=== PATIENT | male | born 1955 | race Caucasian/White ===

== ENCOUNTER → 2020-07-04 09:54 | Outpatient (BNVA) | payer OTHER, SELFPAY | PROVIDERS: PCP Internal Medicine; Visit Provider Urology | DX: Z13.89 Encounter for screening for other disorder (principal) | CPT/HCPCS: Q3014 ==

== ENCOUNTER 2021-01-16 15:50 | Outpatient (REF) | payer OTHER, SELFPAY ==
--- NOTE | ~2021-01-16 | US_ITS ---
EXAMINATION: US RETROPERITONEAL LIMITED (RENAL ONLY) CLINICAL INFORMATION: Calculus of kidney. COMPARISON: Renals only ultrasounds dated 11/30/2019 and 12/20/2017. CT abdomen and pelvis without contrast dated 09/19/2011. TECHNIQUE: Real-time imaging of the kidneys. FINDINGS: RIGHT KIDNEY: 11.7 x 5.7 x 4.7 cm (SAG x AP x TRV). The kidney is normal in size, contour, and echogenicity. Renal cortical thickness is normal. No renal calculi or hydronephrosis. There are anechoic cysts in midpole measuring 1.3 x 1.1 x 1.6 cm and lower pole cyst measuring 0.7 x 0.7 x 0.8 cm. LEFT KIDNEY: 11.0 x 6.2 x 5.8 cm (SAG x AP x TRV). The kidney is normal in size, contour, and echogenicity. Renal cortical thickness is normal. No renal calculi or hydronephrosis. There is anechoic cyst in the midpole measuring 1.9 x 1.6 x 1.5 cm and midpole cyst measuring 0.8 x 0.8 x 0.6 cm. US/US renal BI IMPRESSION: Bilateral renal cysts. No echogenic stones or hydronephrosis. No major change from 11/30/2019 exam.
[2021-01-16 17:01] LABS: PSA,Total (Free>4and<10) 0.16 ng/mL (0.00-4.00)
[2021-01-21 17:02] LABS: Testosterone, Total 480 ng/dL (250-1100)
== END 2021-01-16 15:51 | disposition home or self-care (01) ==
LOC: HO.US 15:50
PROVIDERS: Absent Provider Urology; PCP Internal Medicine; Visit Provider Urology
DX: Z12.5 Encounter for screening for malignant neoplasm of prostate (principal); N20.0 Calculus of kidney; N40.1 Benign prostatic hyperplasia with lower urinary tract symptoms; N13.8 Other obstructive and reflux uropathy; E29.1 Testicular hypofunction
CPT/HCPCS: 36415; 76775; 84153; 84403

== ENCOUNTER → 2021-02-06 15:39 | Outpatient (BNVA) | payer OTHER, SELFPAY | PROVIDERS: PCP Internal Medicine; Visit Provider Urology | CPT/HCPCS: 99212 ==

== ENCOUNTER 2021-07-31 09:12 | Outpatient (REF) | payer OTHER, SELFPAY ==
[2021-07-31 10:03] LABS: Hemoglobin 15.3 g/dl (14.0-18.0); Mean Corpuscular Hemoglobin 30.4 pg (27.0-33.0); Mean Corpuscular Volume 89.3 fL (80.0-98.0); Mean Platelet Volume 9.3 fL (9.4-12.4); Platelet Count 218 X10*3/uL (160-400); Red Blood Count 5.04 X10*6/uL (4.60-5.80); Red Cell Distribution Width 12.6 % (11.0-16.0); White Blood Count 7.5 X10*3/uL (4.8-10.8)
[2021-07-31 10:54] LABS: Prostate Specific Antigen 0.12 ng/mL (<0.05-4.0)
[2021-08-06 00:16] LABS: Testosterone, Total 459 ng/dL (250-1100)
== END 2021-07-31 09:13 | disposition home or self-care (01) ==
LOC: HO.LAB 09:12
PROVIDERS: PCP Internal Medicine; Visit Provider Urology
DX: Z12.5 Encounter for screening for malignant neoplasm of prostate (principal); N40.0 Benign prostatic hyperplasia without lower urinary tract symptoms; E29.1 Testicular hypofunction
CPT/HCPCS: 36415; 84153; 84403; 85027

== ENCOUNTER → 2021-08-15 15:45 | Outpatient (BNVA) | payer OTHER, SELFPAY | PROVIDERS: PCP Internal Medicine; Visit Provider Urology | DX: E29.1 Testicular hypofunction (principal); N40.1 Benign prostatic hyperplasia with lower urinary tract symptoms; R35.0 Frequency of micturition; R39.15 Urgency of urination; N52.9 Male erectile dysfunction, unspecified; Z79.899 Other long term (current) drug therapy | CPT/HCPCS: Q3014 ==

== ENCOUNTER 2022-07-13 09:35 | Outpatient (REF) | payer OTHER, SELFPAY ==
--- NOTE | ~2022-07-13 | US_ITS ---
EXAMINATION: US RETROPERITONEAL LIMITED (RENAL ONLY) CLINICAL INFORMATION: Calculus of kidney. COMPARISON: Ultrasound retroperitoneal limited (renal only) 01/16/2021 and 11/30/2019. TECHNIQUE: Real-time imaging of the kidneys. FINDINGS: RIGHT KIDNEY: 11.5 x 7.0 x 6.2 cm (SAG x AP x TRV). The kidney is normal in size, contour, and echogenicity. Renal cortical thickness is normal. No renal calculi or hydronephrosis. 1.6 cm simple appearing midpole cyst with a much smaller simple appearing lower pole cyst. LEFT KIDNEY: 12.3 x 5.9 x 5.1 cm (SAG x AP x TRV). The kidney is normal in size, contour, and echogenicity. Renal cortical thickness is normal. There are a few simple appearing cyst within the left kidney, largest is located within the upper pole and measures 2.8 cm. Also noted is a 2 mm nonobstructing mid pole calculus. No hydronephrosis. US/US renal BI IMPRESSION: 1. 2 mm nonobstructing left renal calculus. No right-sided renal calculi. No hydronephrosis of either kidney. 2. Bilateral renal cysts. No follow-up imaging required for these cysts.
[2022-07-13 10:08] LABS: Hematocrit 50.7 % (42.0-52.0); Hemoglobin 17.2 g/dl (14.0-18.0); Mean Corpuscular HGB Conc 33.9 g/dl (31.0-36.0); Mean Corpuscular Volume 91.5 fL (80.0-98.0); Mean Platelet Volume 9.6 fL (9.4-12.4); Platelet Count 189 X10*3/uL (160-400); Red Blood Count 5.54 X10*6/uL (4.60-5.80); Red Cell Distribution Width 12.7 % (11.0-16.0); White Blood Count 8.1 X10*3/uL (4.8-10.8)
[2022-07-13 11:25] LABS: PSA,Total (Free>4and<10) 0.33 ng/mL (0.00-4.00)
[2022-07-19 11:33] LABS: Testosterone, Free 60.8 pg/mL (35.0-155.0); Testosterone, Total 494 ng/dL (250-1100)
== END 2022-07-13 09:36 | disposition home or self-care (01) ==
LOC: HO.US 09:35
PROVIDERS: PCP Internal Medicine; Visit Provider Urology
DX: Z12.5 Encounter for screening for malignant neoplasm of prostate (principal); N20.0 Calculus of kidney; E29.1 Testicular hypofunction
CPT/HCPCS: 36415; 76775; 84153; 84402; 84403; 85027

== ENCOUNTER → 2022-07-28 15:23 | Outpatient (BNVA) | payer OTHER, SELFPAY | PROVIDERS: PCP Internal Medicine; Visit Provider Urology | DX: E29.1 Testicular hypofunction (principal); N52.9 Male erectile dysfunction, unspecified; N40.0 Benign prostatic hyperplasia without lower urinary tract symptoms; N20.0 Calculus of kidney | CPT/HCPCS: 51798; 99212 ==

== ENCOUNTER → 2022-09-02 10:33 | Outpatient (BNVA) | payer OTHER, SELFPAY | PROVIDERS: PCP Internal Medicine; Visit Provider Hospitalist | DX: G47.33 Obstructive sleep apnea (adult) (pediatric) (principal); R06.00 Dyspnea, unspecified; J98.6 Disorders of diaphragm; Z99.89 Dependence on other enabling machines and devices | CPT/HCPCS: 99202 ==

== ENCOUNTER 2022-12-30 10:19 | Outpatient (AMB) | payer OTHER, SELFPAY ==
--- NOTE | 2022-12-30 10:32 | MHC.OFFVIS ---
Intake Vital Signs 12/30/22 10:34 Height 5 ft 9 in Weight 217 lb 2.485 oz BMI 32.1 BP 126/78 Blood Pressure Location Lt brachial Position Sitting Pulse 71 Pulse Source Pulse Oximeter Pulse Oximetry (%) 94 Oxygen Delivery Method Room Air Intake Visit Reasons: Obstructive sleep apnea Fuse Cutter Required: No Allergies Iodinated Contrast Media [IV Dye, Iodine Containing] Allergy (Intermediate, Verified 12/30/22 10:37) HIVES IV contrast Allergy (Unknown, Uncoded 12/30/22 10:37) rash HPI HPI Comments History of Present Illness Details The patient is a 66-year-old gentleman with a known history of sleep apnea on CPAP for many years. He has had up to 3 machines. The therapy has been affecting beneficial. He does use a fullface mask and this is comfortable for him. He does use it for more than 4 hours a night. He was previously getting it through [employer]. Will go ahead and request a download from his [employer] company, [employer] and will send a prescription also for supplies. The patient does complaint of some dyspnea on exertion. Usually when going up a flight as stairs or up at incline in the [id number]-[id number] severity. We did review his last chest x-ray that was from December 2021 done at [facility]. It appears that he has a moderately elevated right hemidiaphragm resulting in some atelectasis in that area. The x-ray was not compare to there is no history. On further questioning he did have a serious accident with on a heavy machinery where he injured that lower chest area with the machinery. This could be secondary to that. Although is not clear at this moment. Will go ahead and request the chest x-ray. If is still unclear of for looks worse than before we can also consider getting a CAT scan some PFTs. 12/30/2022 the patient is here for a pulmonary follow-up visit. Since we last spoke the patient states that he has been having some hemoptysis. Has been happening for the last few months. It started to settle down. He has not seen as frequent episodes in the blood appears to be darker. It is typically mixed in with saliva. Denies any epistaxis. He was evaluated by his primary care doctor initially with a chest x-ray and subsequently with a CT scan of the chest done at [facility]. I personally viewed. Again, he has the right hemidiaphragm elevated likely secondary to trauma. He does have atelectasis in that area. Difficult to assess that area since is abnormal. No other findings of any parenchymal disease or alveolar hemorrhage. Explained to him that the most common reason for coughing up blood is bronchitis. It could also be a posterior nasopharynx bleeding episode that is not resulting in any significant epistaxis. Either way will go ahead and treat him with doxycycline for the possibility of a smoldering respiratory infection causing some bleeding. However, if the patient is no better and continues having the blood or if he gets worse will go ahead and plan for bronchoscopy to better address the airways. The patient has been using his CPAP. I did download the machine. His AHI is down 0.7. He does use it about 9 hours a night. The therapy has been affecting beneficial. He is to continue using it as prescribed. He was asking about the hypoglossal nerve stimulator. I do not advise it for him. At this point the patient will follow-up in 2-3 months or sooner if he starts developing worsening hemoptysis again plan for bronchoscopy. [facility] Medical History (Updated 12/30/22 @ 22:05 by Taj Jernigan MD) BPH (benign prostatic hyperplasia) Dyspnea Elevated diaphragm Hypogonadism Hypogonadism in male WILIAM (obstructive sleep apnea) Renal stones Urgency incontinence Family History Other CVD (cardiovascular disease) Cancer Pancreatic cancer Social History (Updated 09/02/22 @ 10:40 by JARRETT Larson) Patient Tobacco Use Status: Never used Tobacco Review of Systems Const Denies chills and Denies fever(s) Card Reports no additional complaints, Denies syncope and Reports dyspnea on exertion Resp Denies cough, Reports hemoptysis, Reports dyspnea on exertion and Denies wheezing GI Denies abdominal pain and Denies heartburn Musc Reports no additional complaints Skin/Breast Denies rash Neuro Denies syncope Darwin/Lymph Denies lymphadenopathy Aller/Immun Denies wheezing Physical Exam Vital Signs: Last Vital Signs Pulse 71 12/30/22 10:34 BP 126/78 12/30/22 10:34 Pulse Ox 94 12/30/22 10:34 Oxygen Delivery Method Room Air 12/30/22 10:34 BMI result Body Mass Index 32.1 Const General: comfortable HEENT Head: Yes normocephalic Eyes General: appearance normal, both eyes and all related structures Neck Neck: Yes supple Chest Chest palpation & inspection: normal inspection of the chest Resp Effort & Inspection: normal respiratory effort Auscultation: clear to auscultation bilaterally Cardio Rate: regular rate Rhythm: regular rhythm Heart sounds: S1 normal heart sound present and S2 normal heart sound present Skin General skin exam: no rashes or lesions noted Extrem General: Yes no clubbing, cyanosis or edema Assessment & Plan Assessment & Plan (1) WILIAM (obstructive sleep apnea): Code(s): G47.33 - Obstructive sleep apnea (adult) (pediatric) (2) 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 - Disorders of diaphragm (3) Dyspnea: Code(s): R06.00 - Dyspnea, unspecified (4) Hemoptysis: Code(s): R04.2 - Hemoptysis Plan continue APAP, 8-12 AHI 0.7 Start Doxycycline, if hemoptysi worsens or persist he will call to schedule a bronchoscopy F/U 2-3 months Medications: New doxycycline monohydrate 100 mg PO BID 10 days 20 tabs 0RF Coding Level of Care Code Est Pt Level 4 (84020) Diagnoses WILIAM (obstructive sleep apnea) G47.33 Elevated diaphragm J98.6 Dyspnea R06.00 Hemoptysis R04.2 Time Spent (min) 21
[2022-12-30 10:34] VITALS: BP 126/78; PULSE 71; O2SAT 94; BMI 32.1
== END 2022-12-30 11:00 | disposition home or self-care (01) ==
PROVIDERS: PCP Emergency Medicine; Visit Provider Hospitalist
DX: G47.33 Obstructive sleep apnea (adult) (pediatric) (principal); J98.6 Disorders of diaphragm; R06.00 Dyspnea, unspecified; R04.2 Hemoptysis
CPT/HCPCS: 99214

== ENCOUNTER → 2022-12-30 10:19 | Outpatient (BNVA) | payer OTHER, SELFPAY | PROVIDERS: Visit Provider Hospitalist | DX: G47.33 Obstructive sleep apnea (adult) (pediatric) (principal); J98.6 Disorders of diaphragm; R06.00 Dyspnea, unspecified; R04.2 Hemoptysis; Z99.89 Dependence on other enabling machines and devices | CPT/HCPCS: 99212 ==

== ENCOUNTER 2023-01-18 07:26 | Outpatient (REF) | payer OTHER, SELFPAY ==
[2023-01-18 08:13] LABS: Hematocrit 49.2 % (42.0-52.0); Hemoglobin 16.3 g/dl (14.0-18.0); Mean Corpuscular HGB Conc 33.1 g/dl (31.0-36.0); Mean Corpuscular Hemoglobin 30.5 pg (27.0-33.0); Mean Corpuscular Volume 92.1 fL (80.0-98.0); Mean Platelet Volume 9.8 fL (9.4-12.4); Platelet Count 205 X10*3/uL (160-400); Red Blood Count 5.34 X10*6/uL (4.60-5.80); White Blood Count 6.9 X10*3/uL (4.8-10.8)
[2023-01-18 08:58] LABS: Prostate Specific Antigen 0.44 ng/mL (<0.05-4.0)
[2023-01-22 13:23] LABS: Testosterone, Total 314 ng/dL (250-1100)
== END 2023-01-18 07:27 | disposition home or self-care (01) ==
LOC: HO.LAB 07:26
PROVIDERS: PCP Internal Medicine; Visit Provider Urology
DX: E29.1 Testicular hypofunction (principal); Z12.5 Encounter for screening for malignant neoplasm of prostate
CPT/HCPCS: 36415; 84153; 84403; 85027

== ENCOUNTER 2023-01-26 15:08 | Outpatient (AMB) | payer OTHER, SELFPAY ==
--- NOTE | 2023-01-26 15:09 | A.OFFVIS_ITS ---
Intake Intake Visit Reasons: 6M CBC/PSA/Testo(set) Intake Note: Patient is present for Telephone Urology Med: Finasteride, Sildenafil, Testosterone Antibiotic Allergy:none Blood Thinner: None Pharmacy: [facility] Allergies Iodinated Contrast Media [IV Dye, Iodine Containing] Allergy (Intermediate, Verified 12/30/22 10:37) HIVES IV contrast Allergy (Unknown, Uncoded 12/30/22 10:37) rash Medication List - Last Reconciled 01/26/23 by Norman Winter MD atorvastatin 40 mg PO BEDTIME buspirone 5 mg PO BID CPAP (CPAP Machine/Device) As directed doxycycline monohydrate 100 mg PO BID 10 days finasteride 5 mg PO BEDTIME gemfibrozil 600 mg PO BID hydrochlorothiazide 12.5 mg PO DAILY lisinopril 20 mg PO DAILY losartan 50 mg PO DAILY magnesium oxide 400 mg PO DAILY metoprolol succinate ER 50 mg PO DAILY pantoprazole 40 mg PO DAILY sildenafil 100 mg PO DAILY PRN 30 days testosterone 2 pumps topical DAILY 28 days tizanidine 2 mg PO BEDTIME venlafaxine ER 37.5 mg PO DAILY HPI HPI Comments History of Present Illness Details Wood is a pleasant male. He is seen for the following urologic conditions - hypogonadism - nephrolithiasis - lower urinary tract symptoms Telemedicine Evaluation 15 min Consultation Doximity Eugenie Video Continue good response to testosterone No stones on imaging Continues with tamsulosin 0.8 mg daily Six month follow-up labs Lower urinary tract symptoms Progressive urinary frequency and urgency Current therapy tamsulosin 0.8 mg daily Hypogonadism Longstanding Prior treatment for rectal cancer that involved radiation Current therapy AndroGel 2 pumps daily Laboratories - 01/08 T 480, PSA 0.16, 08/12 T 460 P 0.2, 08/13 T494 PSA 0.34. 01/10 314 60 0.44 Nephrolithiasis History of stones Prior ultrasound with simple cysts Imaging - 07/13 renal ultrasound bilateral cysts, 2 mm stone left side Continue with encouragement of lemon hydration therapy Erectile dysfunction Good response to Viagra Continue periodic surveillance [facility] Medical History BPH (benign prostatic hyperplasia) Dyspnea Elevated diaphragm Hypogonadism Hypogonadism in male WILIAM (obstructive sleep apnea) Renal stones Urgency incontinence Family History Other CVD (cardiovascular disease) Cancer Pancreatic cancer Social History Patient Tobacco Use Status: Never used Tobacco Review of Systems Const All systems reviewed & are unremarkable except as noted in HPI and below Reports no additional complaints Resp Reports no additional complaints GI Reports no additional complaints Reports as per HPI Musc Reports no additional complaints Physical Exam Telemedicine evaluation Appropriate responses Regular breathing rate and rhythm HEENT Head: Yes normal to inspection Ears: hearing grossly normal bilaterally Eyes General: appearance normal, both eyes and all related structures Neck Neck: Yes normal visual inspection Chest Chest palpation & inspection: normal inspection of the chest Resp Effort & Inspection: normal respiratory effort and able to speak in complete sentences Assessment & Plan Assessment & Plan (1) Hypogonadism in male: Code(s): E29.1 - Testicular hypofunction (2) BPH (benign prostatic hyperplasia): Code(s): N40.0 - Benign prostatic hyperplasia without lower urinary tract symptoms (3) Erectile dysfunction: Code(s): N52.9 - Male erectile dysfunction, unspecified Orders: Orders Prostate Specific Antigen 6 Months E29.1 - Testicular hypofunction Testosterone, Total 6 Months E29.1 - Testicular hypofunction Complete Blood Count no Diff 6 Months E29.1 - Testicular hypofunction Medications: Refilled testosterone apply 2 pumps over max area of EACH upper arm and shoulder 2 pumps topical DAILY 28 days 75 grams 5RF E29.1 - Testicular hypofunction, R79.89 - Other specified abnormal findings of blood chemistry Patient Instructions: Imaging studies, laboratory and physical exam results were discussed and reviewed in detail. No major barriers to patient understanding were identified. An opportunity to ask questions regarding the treatment plan was provided. All questions were answered. The patient expressed understanding and agreement with the above treatment plan. The patient is aware they should contact our office by phone for worsening of their current condition or the appearance of new urologic symptoms. Compliance is encouraged with any medications and followup testing that is ordered. It is a privilege to participate in the urologic care of your patient. If you have any questions or concerns regarding treatment for the above conditions, or other urologic issues, please do not hesitate to contact me. The office telephone contact is [phone]. This note is constructed using voice recognition software. While every effort has been made to ensure accuracy pediatric allergist errors may have been included. Yours sincerely, Dr Norman Winter MD, [facility] - Urology Providers of Expert, Compassionate Care for the Genitourinary System Telehealth Telehealth Location of provider rendering services: practice address Location of patient: address on file Patient Identification confirmed using: Name, : Yes Telehealth method: video Patient verbally consented to treatment: Yes Patient verbally consented to billing insurance company: Yes Patient informed of any privacy concerns related to visit: Yes Coding Level of Care Code Tele Est Pt Level 3 (56010) Diagnoses Hypogonadism in male E29.1 BPH (benign prostatic hyperplasia) N40.0 Erectile dysfunction N52.9
== END 2023-01-26 15:35 | disposition home or self-care (01) ==
LOC: HO.HUSH 15:08
PROVIDERS: PCP Internal Medicine; Visit Provider Urology
DX: E29.1 Testicular hypofunction (principal); N40.0 Benign prostatic hyperplasia without lower urinary tract symptoms; N52.9 Male erectile dysfunction, unspecified
CPT/HCPCS: 99213

== ENCOUNTER → 2023-01-26 15:08 | Outpatient (BNVA) | payer OTHER, SELFPAY | PROVIDERS: PCP Internal Medicine; Visit Provider Urology | DX: E29.1 Testicular hypofunction (principal); N40.1 Benign prostatic hyperplasia with lower urinary tract symptoms; N13.8 Other obstructive and reflux uropathy; N20.0 Calculus of kidney; N52.1 Erectile dysfunction due to diseases classified elsewhere; Z85.048 Personal history of other malignant neoplasm of rectum, rectosigmoid junction, and anus; Z92.3 Personal history of irradiation; Z79.899 Other long term (current) drug therapy | CPT/HCPCS: Q3014 ==

== ENCOUNTER 2023-03-17 09:09 | Outpatient (AMB) | payer OTHER, SELFPAY ==
[2023-03-17 09:17] VITALS: PULSE 80; O2SAT 95; BMI 29.1
--- NOTE | 2023-03-17 09:17 | MHC.OFFVIS ---
Intake Vital Signs 03/17/23 09:17 Height 5 ft 9 in Weight 197 lb BMI 29.1 Pulse 80 Pulse Source Pulse Oximeter Pulse Oximetry (%) 95 Oxygen Delivery Method Room Air Intake Visit Reasons: Obstructive sleep apnea [employer] Required: No Allergies Iodinated Contrast Media [IV Dye, Iodine Containing] Allergy (Intermediate, Verified 03/17/23 09:18) HIVES IV contrast Allergy (Unknown, Uncoded 03/17/23 09:18) rash HPI HPI Comments History of Present Illness Details The patient is a 67-year-old gentleman with a known history of sleep apnea on CPAP for many years. He has had up to 3 machines. The therapy has been affecting beneficial. He does use a fullface mask and this is comfortable for him. He does use it for more than 4 hours a night. He was previously getting it through [email or web address]. Will go ahead and request a download from his [employer] company, [employer] and will send a prescription also for supplies. The patient does complaint of some dyspnea on exertion. Usually when going up a flight as stairs or up at incline in the [id number]-[id number] severity. We did review his last chest x-ray that was from December 2021 done at [facility]. It appears that he has a moderately elevated right hemidiaphragm resulting in some atelectasis in that area. The x-ray was not compare to there is no history. On further questioning he did have a serious accident with on a heavy machinery where he injured that lower chest area with the machinery. This could be secondary to that. Although is not clear at this moment. Will go ahead and request the chest x-ray. If is still unclear of for looks worse than before we can also consider getting a CAT scan some PFTs. 12/30/2022 the patient is here for a pulmonary follow-up visit. Since we last spoke the patient states that he has been having some hemoptysis. Has been happening for the last few months. It started to settle down. He has not seen as frequent episodes in the blood appears to be darker. It is typically mixed in with saliva. Denies any epistaxis. He was evaluated by his primary care doctor initially with a chest x-ray and subsequently with a CT scan of the chest done at [facility]. I personally viewed. Again, he has the right hemidiaphragm elevated likely secondary to trauma. He does have atelectasis in that area. Difficult to assess that area since is abnormal. No other findings of any parenchymal disease or alveolar hemorrhage. Explained to him that the most common reason for coughing up blood is bronchitis. It could also be a posterior nasopharynx bleeding episode that is not resulting in any significant epistaxis. Either way will go ahead and treat him with doxycycline for the possibility of a smoldering respiratory infection causing some bleeding. However, if the patient is no better and continues having the blood or if he gets worse will go ahead and plan for bronchoscopy to better address the airways. The patient has been using his CPAP. I did download the machine. His AHI is down 0.7. He does use it about 9 hours a night. The therapy has been affecting beneficial. He is to continue using it as prescribed. He was asking about the hypoglossal nerve stimulator. I do not advise it for him. At this point the patient will follow-up in 2-3 months or sooner if he starts developing worsening hemoptysis again plan for bronchoscopy. 03/17/2023 the patient is here for a pulmonary sick visit. Apparently he was hospitalized recently after developing severe abdominal discomfort and found to have a perforated gallbladder. The patient did require surgery. He was hospitalized at [facility] for period of time. He was on oxygen while at [facility]. He was given antibiotics and the patient was subsequently discharged. Still having some shortness of breath with activity. Still not feeling completely strong. In addition to that has had this worsening cough and persistent cough that has been bothering him day and night. Typically the cough is nonproductive. On examination he does have some expiratory wheezing. Explained to him that he may have had some micro aspirations relating to aspiration related reactive airways disease and inflammatory changes. The patient did receive a nebulizer treatment in the office with improvement in respiratory symptoms. His cough subsided significantly. He already completed multiple courses of antibiotics. In addition to that will try to avoid prednisone in view of his recent surgery to allow good healing. However, the patient's symptoms worsen he will call and I will send him additional medications. For now will keep him on a short-acting beta agonist that he can use as needed. also to note, during the office visit we did go for a walking oximetry. The patient has pulse ox with activity range around 92-92%. The patient is still not his baseline but he does not qualify for oxygen. We talked about the importance of deep breathing and walking to try to further expand his lungs and improve his lung capacity. [facility] Medical History BPH (benign prostatic hyperplasia) Dyspnea Elevated diaphragm Hypogonadism Hypogonadism in male WILIAM (obstructive sleep apnea) Renal stones Urgency incontinence Family History Other CVD (cardiovascular disease) Cancer Pancreatic cancer Social History Patient Tobacco Use Status: Never used Tobacco Review of Systems Const Denies chills and Denies fever(s) ENT Denies nasal congestion Card Reports no additional complaints, Denies syncope and Reports dyspnea on exertion Resp Reports cough, Denies hemoptysis, Reports dyspnea on exertion and Denies wheezing GI Denies abdominal pain and Denies heartburn Musc Reports no additional complaints Skin/Breast Denies rash Neuro Denies syncope Darwin/Lymph Denies lymphadenopathy Aller/Immun Denies wheezing Physical Exam Vital Signs: Last Vital Signs Pulse 80 03/17/23 09:17 Pulse Ox 95 03/17/23 09:17 Oxygen Delivery Method Room Air 03/17/23 09:17 BMI result Body Mass Index 29.1 Const General: comfortable HEENT Head: Yes normocephalic Eyes General: appearance normal, both eyes and all related structures Neck Neck: Yes supple Chest Chest palpation & inspection: normal inspection of the chest Resp Effort & Inspection: normal respiratory effort Auscultation: wheezes and diminished lung sounds Cardio Rate: regular rate Rhythm: regular rhythm Heart sounds: S1 normal heart sound present and S2 normal heart sound present Skin General skin exam: no rashes or lesions noted Extrem General: Yes no clubbing, cyanosis or edema Office Procedures Nebulizer Treatment Nebulizer Treatment [id number] RX initial, or Nebulizer Subsequent Treatment Office Meds ipratropium 0.5 mg-albuterol 3 mg (2.5 mg base)/3 mL nebulization soln Performing Provider: Taj Jernigan MD Performing Location: [facility] Administered by: Mara Coronel LPN on 03/17/23 09:31 Dose Route Admin Location Dispensed Lot Number Expiration Date 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 3 mL inhalation 3 mL [id number] 06/20/24 3455-2854-57 [facility] Assessment & Plan Assessment & Plan (1) WILIAM (obstructive sleep apnea): Code(s): G47.33 - Obstructive sleep apnea (adult) (pediatric) (2) 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 - Disorders of diaphragm (3) Dyspnea: Code(s): R06.00 - Dyspnea, unspecified Qualifiers: Dyspnea type: dyspnea on exertion Qualified Code(s): R06.09 - Other forms of dyspnea (4) Cough: Code(s): R05.9 - Cough, unspecified Qualifiers: Cough type: subacute Qualified Code(s): R05.2 - Subacute cough Plan continue APAP, 8-12 AHI 0.7 start ROVERTO as needed Call if symptoms worsen or persistent F/U 2-3 months Orders: Orders AMB Nebulizer Treatment Today R06.00 - Dyspnea, unspecified Medications: New albuterol sulfate 90 mcg/actuation 2 inhalations inhalation Q6H 30 days PRN 18 grams 12RF shortness of breath or wheezing J44.9 - Chronic obstructive pulmonary disease, unspecified Coding Level of Care Code Est Pt Level 4 (43278) Diagnoses WILIAM (obstructive sleep apnea) G47.33 Elevated diaphragm J98.6 Dyspnea on exertion R06.09 Dyspnea type: dyspnea on exertion Subacute cough R05.2 Cough type: subacute CPT Codes Nebulizer Treatment - Nebulizer Treatment, initial or subsequent: [id number] RX initial, or Nebulizer Subsequent Treatment ([id number]) Time Spent (min) 17
== END 2023-03-17 10:00 | disposition home or self-care (01) ==
PROVIDERS: PCP Internal Medicine; Visit Provider Hospitalist
DX: R06.00 Dyspnea, unspecified (principal); R05.9 Cough, unspecified
CPT/HCPCS: 99214

== ENCOUNTER → 2023-03-17 09:09 | Outpatient (BNVA) | payer OTHER, SELFPAY | PROVIDERS: PCP Internal Medicine; Visit Provider Hospitalist | DX: G47.33 Obstructive sleep apnea (adult) (pediatric) (principal); J98.6 Disorders of diaphragm; R06.09 Other forms of dyspnea; R05.2 Subacute cough | CPT/HCPCS: 94640; 99212 ==

== ENCOUNTER 2023-06-22 10:59 | Outpatient (REF) | payer OTHER, SELFPAY | END 2023-06-22 11:00 | disposition home or self-care (01) | LOC: HO.XRAY 10:59 | PROVIDERS: PCP Internal Medicine; Visit Provider Hospitalist | DX: R04.2 Hemoptysis (principal); R06.00 Dyspnea, unspecified; J44.9 Chronic obstructive pulmonary disease, unspecified | CPT/HCPCS: 71046; 99212 ==

== ENCOUNTER 2023-06-22 10:59 | Outpatient (AMB) | payer OTHER, SELFPAY ==
[2023-06-22 11:03] VITALS: PULSE 69; O2SAT 95; BMI 29.1
--- NOTE | 2023-06-22 11:03 | A.OFFVIS_ITS ---
Intake Vital Signs 06/22/23 11:03 Height 5 ft 9 in Weight 196 lb 13.965 oz BMI 29.1 Pulse 69 Pulse Source Pulse Oximeter Pulse Oximetry (%) 95 Oxygen Delivery Method Room Air Intake Visit Reasons: Obstructive sleep apnea Drafting Supervisor Required: No Allergies Iodinated Contrast Media [IV Dye, Iodine Containing] Allergy (Intermediate, Verified 06/22/23 11:05) HIVES IV contrast Allergy (Unknown, Uncoded 06/22/23 11:05) rash HPI HPI Comments History of Present Illness Details The patient is a 67-year-old gentleman with a known history of sleep apnea on CPAP for many years. He has had up to 3 machines. The therapy has been affecting beneficial. He does use a fullface mask and this is comfortable for him. He does use it for more than 4 hours a night. He was previously getting it through [employer]. Will go ahead and request a download from his [employer] company, [employer] and will send a prescription also for supplies. The patient does complaint of some dyspnea on exertion. Usually when going up a flight as stairs or up at incline in the [id number] severity. We did review his last chest x-ray that was from December 2021 done at [facility]. It appears that he has a moderately elevated right hemidiaphragm resulting in some atelectasis in that area. The x-ray was not compare to there is no history. On further questioning he did have a serious accident with on a heavy machinery where he injured that lower chest area with the machinery. This could be secondary to that. Although is not clear at this moment. Will go ahead and request the chest x-ray. If is still unclear of for looks worse than before we can also consider getting a CAT scan some PFTs. 12/30/2022 the patient is here for a pulmonary follow-up visit. Since we last spoke the patient states that he has been having some hemoptysis. Has been happening for the last few months. It started to settle down. He has not seen as frequent episodes in the blood appears to be darker. It is typically mixed in with saliva. Denies any epistaxis. He was evaluated by his primary care d justyna initially with a chest x-ray and subsequently with a CT scan of the chest done at [facility]. I personally viewed. Again, he has the right hemidiaphragm elevated likely secondary to trauma. He does have atelectasis in that area. Difficult to assess that area since is abnormal. No other findings of any parenchymal disease or alveolar hemorrhage. Explained to him that the mo st common reason for coughing up blood is bronchitis. It could also be a posterior nasopharynx bleeding episode that is not resulting in any significant epistaxis. Either way will go ahead and treat him with doxycycline for the possibility of a smoldering respiratory infection causing some bleeding. However, if the patient is no better and continues having the blood or if he gets worse will go ahead and plan for bronchoscopy to better address the airways. The patient has been using his CPAP. I did download the machine. His AHI is down 0.7. He does use it about 9 hours a night. The therapy has been affecting beneficial. He is to continue using it as prescribed. He was asking about the hypoglossal nerve stimulator. I do not advise it for him. At this point the patient will follow-up in 2-3 months or sooner if he starts developing worsening hemoptysis again plan for bronchoscopy. 03/17/2023 the patient is here for a pulmonary sick visit. Apparently he was hospitalized recently after developing severe abdominal discomfort and found to have a perforated gallbladder. The patient did require surgery. He was hospitalized at [facility] for period of time. He was on oxygen while at [facility]. He was given antibiotics and the patient was subsequently discharged. Still having some shortness of breath with activity. Still not feeling completely strong. In addition to that has had this worsening cough and persistent cough that has been bothering him day and night. Typically the cough is nonproductive. On examination he does have some expiratory wheezing. Explained to him that he may have had some micro aspirations relating to aspiration related reactive airways disease and inflammatory changes. The patient did receive a nebulizer treatment in the office with improvement in respiratory symptoms. His cough subsided significantly. He already completed multiple courses of antibiotics. In addition to that will try to avoid prednisone in view of his recent surgery to allow good healing. However, the patient's symptoms worsen he will call and I will send him additional medications. For now will keep him on a short-acting beta agonist that he can use as needed. also to note, during the office visit we did go for a walking oximetry. The patient has pulse ox with activity range around 92-92%. The patient is still not his baseline but he does not qualify for oxygen. We talked about the importance of deep breathing and walking to try to further expand his lungs and improve his lung capacity. 06/22/2023 the patient is here for a [facility] w[facility]up visit. Since we last spoke he was rehospitalized after having more complications due to the perforated gallbladder. He states he required multiple procedures and currently being followed closely by his surgeons. He has been using the CPAP. The CPAP therapy continues to be affecting beneficial. He even use it while in hospital. His major complaints at this point is that he has had some episodic hemoptysis. Sometimes is clear mucus and sometimes he notices that the blood. Seems like it has been better for the last few days. I did ask him about any bleeding elsewhere he denies any epistaxis and denies any bleeding from any other orifice. The blood appears to be bright red when it does come out. The patient did cough in the office but is mucus was clear without any specks of blood which is reassuring. His exam is also reassuring. I did also having undergo a chest x-ray demonstrating no acute disease. 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 The patient will monitor closely his symptoms if the hemoptysis returns or worsens he will call the office for an earlier assessment. Currently he is not on any blood thinners. [facility] Medical History BPH (benign prostatic hyperplasia) Dyspnea Elevated diaphragm Hypogonadism Hypogonadism in male WILIAM (obstructive sleep apnea) Renal stones Urgency incontinence Family History Other CVD (cardiovascular disease) Cancer Pancreatic cancer Social History Patient Tobacco Use Status: Never used Tobacco Review of Systems Const Denies chills and Denies fever(s) ENT Denies nasal congestion Card Reports no additional complaints, Denies syncope and Reports dyspnea on exertion Resp Reports cough, Reports hemoptysis, Reports dyspnea on exertion and Denies wheezing GI Denies abdominal pain and Denies heartburn Musc Reports no additional complaints Skin/Breast Denies rash Neuro Denies syncope Darwin/Lymph Denies lymphadenopathy Aller/Immun Denies wheezing Physical Exam Vital Signs: Last Vital Signs Pulse 69 06/22/23 11:03 Pulse Ox 95 06/22/23 11:03 Oxygen Delivery Method Room Air 06/22/23 11:03 BMI result Body Mass Index 29.1 Const General: comfortable HEENT Head: Yes normocephalic Eyes General: appearance normal, both eyes and all related structures Neck Neck: Yes supple Chest Chest palpation & inspection: normal inspection of the chest Resp Effort & Inspection: normal respiratory effort Auscultation: no wheezes and diminished lung sounds Cardio Rate: regular rate Rhythm: regular rhythm Heart sounds: S1 normal heart sound present and S2 normal heart sound present Skin General skin exam: no rashes or lesions noted Extrem General: Yes no clubbing, cyanosis or edema Assessment & Plan Assessment & Plan (1) WILIAM (obstructive sleep apnea): Code(s): G47.33 - Obstructive sleep apnea (adult) (pediatric) (2) 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 - Disorders of diaphragm (3) Dyspnea: Code(s): R06.00 - Dyspnea, unspecified Qualifiers: Dyspnea type: dyspnea on exertion Qualified Code(s): R06.09 - Other forms of dyspnea (4) Cough: Code(s): R05.9 - Cough, unspecified Qualifiers: Cough type: subacute Qualified Code(s): R05.2 - Subacute cough (5) Hemoptysis: Code(s): R04.2 - Hemoptysis Plan continue APAP, 8-12 AHI 0.7 continue ROVERTO as needed CXR start Doxycycline Call if symptoms worsen or persistent F/U 2-3 months Orders: Orders XR chest 2V Today R04.2 - Hemoptysis Medications: New doxycycline monohydrate 100 mg PO BID 14 days 28 tabs 0RF Coding Level of Care Code Est Pt Level 4 (57794) Diagnoses WILIAM (obstructive sleep apnea) G47.33 Elevated diaphragm J98.6 Dyspnea on exertion R06.09 Dyspnea type: dyspnea on exertion Subacute cough R05.2 Cough type: subacute Hemoptysis R04.2 Time Spent (min) 17
== END 2023-06-22 11:29 | disposition home or self-care (01) ==
PROVIDERS: PCP Internal Medicine; Visit Provider Hospitalist
DX: G47.33 Obstructive sleep apnea (adult) (pediatric) (principal); J98.6 Disorders of diaphragm; R06.09 Other forms of dyspnea; R05.2 Subacute cough; R04.2 Hemoptysis
CPT/HCPCS: 99214

== ENCOUNTER 2023-07-29 09:12 | Outpatient (REF) | payer OTHER, SELFPAY ==
[2023-07-29 10:06] LABS: Hematocrit 48.1 % (42.0-52.0); Hemoglobin 16.4 g/dl (14.0-18.0); Mean Corpuscular HGB Conc 34.1 g/dl (31.0-36.0); Mean Corpuscular Hemoglobin 30.4 pg (27.0-33.0); Mean Corpuscular Volume 89.2 fL (80.0-98.0); Mean Platelet Volume 9.6 fL (9.4-12.4); Platelet Count 157 X10*3/uL (160-400); Red Blood Count 5.39 X10*6/uL (4.60-5.80); Red Cell Distribution Width 12.9 % (11.0-16.0); White Blood Count 6.2 X10*3/uL (4.8-10.8)
[2023-07-29 10:52] LABS: Prostate Specific Antigen 0.51 ng/mL (<0.05-4.0)
[2023-08-02 17:03] LABS: Testosterone, Total 615 ng/dL (250-1100)
== END 2023-07-29 09:13 | disposition home or self-care (01) ==
LOC: HO.LAB 09:12
PROVIDERS: PCP Internal Medicine; Visit Provider Urology
DX: Z12.5 Encounter for screening for malignant neoplasm of prostate (principal); E29.1 Testicular hypofunction
CPT/HCPCS: 36415; 84153; 84403; 85027

== ENCOUNTER 2023-09-07 12:54 | Outpatient (AMB) | payer OTHER, SELFPAY ==
--- NOTE | 2023-09-07 12:59 | MHC.OFFVIS ---
Intake Intake Visit Reasons: PSA/Testo(set) Intake Note: Patient is Present for Telephone Follow Up Urology Med:Sildenafil, Testosterone, Antibiotic Allergy:None Blood Thinner:None Allergies Iodinated Contrast Media [IV Dye, Iodine Containing] Allergy (Intermediate, Verified 06/22/23 11:05) HIVES IV contrast Allergy (Unknown, Uncoded 06/22/23 11:05) rash HPI HPI Comments History of Present Illness Details Wood is a pleasant male. He is seen for the following urologic conditions - hypogonadism - nephrolithiasis - lower urinary tract symptoms Telemedicine Evaluation 15 min Consultation [employer] Eugenie Video attempted Continue good response to testosterone Having some degree of urgency Restart tamsulosin 0.4 mg Six month follow-up labs Lower urinary tract symptoms Progressive urinary frequency and urgency Restart tamsulosin 0.4 mg stone Hypogonadism Longstanding Prior treatment for rectal cancer that involved radiation Current therapy AndroGel 2 pumps daily Laboratories - 01/08 T 480, PSA 0.16, 08/12 T 460 P 0.2, 08/13 T494 PSA 0.34. 01/10 314 60 0.44, 08/14 615 0.5 48 Nephrolithiasis History of stones Prior ultrasound with simple cysts Imaging - 07/13 renal ultrasound bilateral cysts, 2 mm stone left side Continue with encouragement of lemon hydration therapy Erectile dysfunction Good response to Viagra Continue periodic surveillance [facility] Medical History Dyspnea Elevated diaphragm WILIAM (obstructive sleep apnea) Hypogonadism in male Urgency incontinence Renal stones BPH (benign prostatic hyperplasia) Hypogonadism Family History Other CVD (cardiovascular disease) Cancer Pancreatic cancer Social History Patient Tobacco Use Status: Never used Tobacco Review of Systems Const All systems reviewed & are unremarkable except as noted in HPI and below Reports no additional complaints Resp Reports no additional complaints GI Reports no additional complaints Reports as per HPI Musc Reports no additional complaints Physical Exam Telemedicine evaluation Appropriate responses Regular breathing rate and rhythm HEENT Head: Yes normal to inspection Ears: hearing grossly normal bilaterally Eyes General: appearance normal, both eyes and all related structures Neck Neck: Yes normal visual inspection Chest Chest palpation & inspection: normal inspection of the chest Resp Effort & Inspection: normal respiratory effort and able to speak in complete sentences Assessment & Plan Assessment & Plan (1) Hypogonadism in male: Code(s): E29.1 - Testicular hypofunction (2) BPH (benign prostatic hyperplasia): Code(s): N40.0 - Benign prostatic hyperplasia without lower urinary tract symptoms (3) Erectile dysfunction: Code(s): N52.9 - Male erectile dysfunction, unspecified Plan Six-month follow-up labs Continue testosterone Medications: New tamsulosin 0.4 mg PO BEDTIME 30 caps 1RF 30 days N40.0 - Benign prostatic hyperplasia without lower urinary tract symptoms, N40.1 - Benign prostatic hyperplasia with lower urinary tract symptoms, R35.1 - Nocturia Refilled testosterone apply 2 pumps over max area of EACH upper arm and shoulder 2 pumps topical DAILY 75 grams 5RF 28 days E29.1 - Testicular hypofunction, R79.89 - Other specified abnormal findings of blood chemistry Patient Instructions: Imaging studies, laboratory and physical exam results were discussed and reviewed in detail. No major barriers to patient understanding were identified. An opportunity to ask questions regarding the treatment plan was provided. All questions were answered. The patient expressed understanding and agreement with the above treatment plan. The patient is aware they should contact our office by phone for worsening of their current condition or the appearance of new urologic symptoms. Compliance is encouraged with any medications and followup testing that is ordered. It is a privilege to participate in the urologic care of your patient. If you have any questions or concerns regarding treatment for the above conditions, or other urologic issues, please do not hesitate to contact me. The office telephone contact is [phone]. This note is constructed using voice recognition software. While every effort has been made to ensure accuracy balance assembler errors may have been included. Yours sincerely, Dr Norman Winter MD, [facility] - Urology Providers of Expert, Compassionate Care for the Genitourinary System Telehealth Telehealth Location of provider rendering services: practice address Location of patient: address on file Patient Identification confirmed using: Name, : Yes Telehealth method: video Patient verbally consented to treatment: Yes Patient verbally consented to billing insurance company: Yes Patient informed of any privacy concerns related to visit: Yes Coding Level of Care Code Tele Est Pt Level 4 (97079) Diagnoses Hypogonadism in male E29.1 BPH (benign prostatic hyperplasia) N40.0 Erectile dysfunction N52.9
== END 2023-09-07 15:08 | disposition home or self-care (01) ==
LOC: HO.HUSH 12:54
PROVIDERS: PCP Internal Medicine; Visit Provider Urology
DX: E29.1 Testicular hypofunction (principal); N40.0 Benign prostatic hyperplasia without lower urinary tract symptoms; N52.9 Male erectile dysfunction, unspecified
CPT/HCPCS: 99214

== ENCOUNTER → 2023-09-07 12:54 | Outpatient (BNVA) | payer OTHER, SELFPAY | PROVIDERS: PCP Internal Medicine; Visit Provider Urology ==

== ENCOUNTER 2023-10-18 09:52 | Outpatient (AMB) | payer OTHER, SELFPAY ==
--- NOTE | 2023-10-18 09:53 | A.OFFVIS_ITS ---
Vital Signs 10/18/23 09:55 Height 5 ft 9 in Weight 208 lb 5.389 oz BMI 30.8 BP 146/64 H Blood Pressure Location Lt brachial Position Sitting Pulse 61 Pulse Source Pulse Oximeter Pulse Oximetry (%) 97 Oxygen Delivery Method Room Air Intake Visit Reasons: copd Nursing Student Required: No Concrete Mixer Truck Driver: Concrete Mixer Truck Driver offered & declined Accompanied by: Self / Same As Patient Allergies Iodinated Contrast Media [IV Dye, Iodine Containing] Allergy (Intermediate, Verified 10/18/23 09:58) HIVES IV contrast Allergy (Unknown, Uncoded 10/18/23 09:58) rash Medication List - Last Reconciled 10/18/23 by Katelin Singer LPN albuterol sulfate 90 mcg/actuation 2 inhalations inhalation Q6H PRN 30 days atorvastatin 40 mg PO BEDTIME buspirone 5 mg PO BID CPAP (CPAP Machine/Device) As directed fluoxetine 20 mg PO DAILY gemfibrozil 600 mg PO BID hydrochlorothiazide 12.5 mg PO DAILY lisinopril 20 mg PO DAILY losartan 50 mg PO DAILY magnesium oxide 400 mg PO DAILY metoprolol succinate ER 50 mg PO DAILY pantoprazole 40 mg PO DAILY sildenafil 100 mg PO DAILY PRN 30 days tamsulosin 0.4 mg PO BEDTIME 30 days testosterone 2 pumps topical DAILY 28 days tizanidine 2 mg PO BEDTIME venlafaxine ER 37.5 mg PO DAILY HPI Comments Details: The patient is a 68-year-old gentleman with a known history of sleep apnea on CPAP for many years. He has had up to 3 machines. The therapy has been affecting beneficial. He does use a fullface mask and this is comfortable for him. He does use it for more than 4 hours a night. He was previously getting it through [employer]. Will go ahead and request a download from his [employer] company, [employer] and will send a prescription also for supplies. The patient does complaint of some dyspnea on exertion. Usually when going up a flight as stairs or up at incline in the [id number] severity. We did review his last chest x-ray that was from December 2021 done at [facility]. It appears that he has a moderately elevated right hemidiaphragm resulting in some atelectasis in that area. The x-ray was not compare to there is no history. On further questioning he did have a serious accident with on a heavy machinery where he injured that lower chest area with the machinery. This could be secondary to that. Although is not clear at this moment. Will go ahead and request the chest x-ray. If is still unclear of for looks worse than before we can also consider getting a CAT scan some PFTs. 12/30/2022 the patient is here for a pulmonary follow-up visit. Since we last spoke the patient states that he has been having some hemoptysis. Has been happening for the last few months. It started to settle down. He has not seen as frequent episodes in the blood appears to be darker. It is typically mixed in with saliva. Denies any epistaxis. He was evaluated by his primary care doctor initially with a chest x-ray and subsequently with a CT scan of the chest done at [facility]. I personally viewed. Again, he has the right hemidiaphragm elevated likely secondary to trauma. He does have atelectasis in that area. Difficult to assess that area since is abnormal. No other findings of any parenchymal disease or alveolar hemorrhage. Explained to him that the most common reason for coughing up blood is bronchitis. It could also be a posterior nasopharynx bleeding episode that is not resulting in any significant epistaxis. Either way will go ahead and treat him with doxycycline for the possibility of a smoldering respiratory infection causing some bleeding. However, if the patient is no better and continues having the blood or if he gets worse will go ahead and plan for bronchoscopy to better address the airways. The patient has been using his CPAP. I did download the machine. His AHI is down 0.7. He does use it about 9 hours a night. The therapy has been affecting beneficial. He is to continue using it as prescribed. He was asking about the hypoglossal nerve stimulator. I do not advise it for him. At this point the patient will follow-up in 2-3 months or sooner if he starts developing worsening hemoptysis again plan for bronchoscopy. 03/17/2023 the patient is here for a pulmonary sick visit. Apparently he was hospitalized recently after developing severe abdominal discomfort and found to have a perforated gallbladder. The patient did require surgery. He was hospitalized at [facility] for period of time. He was on oxygen while at [facility]. He was given antibiotics and the patient was subsequently discharged. Still having some shortness of breath with activity. Still not feeling co mpletely strong. In addition to that has had this worsening cough and persistent cough that has been bothering him day and night. Typically the cough is nonproductive. On examination he does have some expiratory wheezing. Explained to him that he may have had some micro aspirations relating to aspiration related reactive airways disease and inflammatory changes. The patient did receive a nebulizer treatment in the office with improvement in respiratory symptoms. His cough subsided significantly. He already completed multiple courses of antibiotics. In addition to that will try to avoid prednisone in view of his recent surgery to allow good healing. However, the patient's symptoms worsen he will call and I will send him additional medications. For now will keep him on a short-acting beta agonist that he can use as needed. also to note, during the office visit we did go for a walking oximetry. The patient has pulse ox with activity range around 92-92%. The patient is still not his baseline but he does not qualify for oxygen. We talked about the importance of deep breathing and walking to try to further expand his lungs and improve his lung capacity. 06/22/2023 the patient is here for a follow-up visit. Since we last spoke he was rehospitalized after having more complications due to the perforated gallbladder. He states he required multiple procedures and currently being followed closely by his surgeons. He has been using the CPAP. The CPAP therapy continues to be affecting beneficial. He even use it while in hospital. His major complaints at this point is that he has had some episodic hemoptysis. Sometimes is clear mucus and sometimes he notices that the blood. Seems like it has been better for the last few days. I did ask him about any bleeding else where he denies any epistaxis and denies any bleeding from any other orifice. The blood appears to be bright red when it does come out. The patient did cough in the office but is mucus was clear without any specks of blood which is reassuring. His exam is also reassuring. I did also having undergo a chest x- ray demonstrating no acute disease. 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 The patient will monitor closely his symptoms if the hemoptysis returns or worsens he will call the office for an earlier assessment. Currently he is not on any blood thinners. 10/18/2023 the patient is here for pulmonary follow-up visit. He is still having issues after his hospitalization at [facility]. Still having episodes of hemoptysis. The patient complains of a sore throat. Hurts in some areas in the neck area. He is concerned after a lot of manipulations with the 82 to when he was intubated in the ICU and is also concerned with the fact that his father of head and neck cancer. I did during exam no evidence of any significant abnormalities noted in the posterior pharynx or in the gingiva to explain the bleeding. No evidence of any epistaxis. Will go ahead and request a CT scan of the neck to better address the neck pain in addition to the hemoptysis. We also talked about considering bronchoscopy to better evaluate that area as well. Will wait after the CT scan to perform bronchoscopy if he is still having episodes of bleeding. Will continue with the current respiratory therapy from now. He is using CPAP every night CPAP therapy continues to be affecting beneficial. He does use it every night for more than 4 hours a night. Will fo llow-up 6-[address] scan. If he has any worsening symptoms he will call prior to that. [facility] Medical History (Updated 10/18/23 @ 10:14 by Taj Jernigan MD) Neck pain Dyspnea Elevated diaphragm WILIAM (obstructive sleep apnea) Hypogonadism in male Urgency incontinence Renal stones BPH (benign prostatic hyperplasia) Hypogonadism Family History Other CVD (cardiovascular disease) Cancer Pancreatic cancer Social History (Updated 10/18/23 @ 10:00 by Katelin Singer LPN) Patient Tobacco Use Status: Never used Tobacco Review of Systems Const Denies chills and Denies fever(s) ENT Denies nasal congestion, Reports neck pain and Reports sore throat Card Reports no additional complaints, Denies syncope and Reports dyspnea on exertion Resp Reports cough, Reports hemoptysis, Reports dyspnea on exertion and Denies wheezing GI Denies abdominal pain and Denies heartburn Musc Reports no additional complaints and Reports neck pain Skin/Breast Denies rash Neuro Denies syncope Darwin/Lymph Denies lymphadenopathy Aller/Immun Denies wheezing Physical Exam Vital Signs: Last Vital Signs Pulse 61 10/18/23 09:55 BP 146/64 H 04/29/24 09:55 Pulse Ox 97 10/18/23 09:55 Oxygen Delivery Method Room Air 10/18/23 09:55 BMI result Body Mass Index 30.8 Const General: comfortable HEENT Head: Yes normocephalic Mouth: Normal oral and palatal mucosa present Teeth and gingiva: dentures Throat: Yes posterior oropharynx normal Eyes General: appearance normal, both eyes and all related structures Neck Neck: Yes supple Chest Chest palpation & inspection: normal inspection of the chest Resp Effort & Inspection: normal respiratory effort Auscultation: no wheezes and diminished lung sounds Cardio Rate: regular rate Rhythm: regular rhythm Heart sounds: S1 normal heart sound present and S2 normal heart sound present Skin General skin exam: no rashes or lesions noted Extrem General: Yes no clubbing, cyanosis or edema Assessment & Plan Assessment & Plan (1) Hemoptysis: Code(s): R04.2 - Hemoptysis Category: Medical (2) Cough: Code(s): R05.9 - Cough, unspecified Category: Medical Qualifiers: Cough type: subacute Qualified Code(s): R05.2 - Subacute cough (3) Neck pain: Code(s): M54.2 - Cervicalgia Category: Medical (4) WILIAM (obstructive sleep apnea): Code(s): G47.33 - Obstructive sleep apnea (adult) (pediatric) Category: Medical (5) 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 - Disorders of diaphragm Category: Medical (6) Dyspnea: Code(s): R06.00 - Dyspnea, unspecified Category: Medical Qualifiers: Dyspnea type: dyspnea on exertion Qualified Code(s): R06.09 - Other forms of dyspnea Plan continue APAP, 8-12 AHI 0.7 continue ROVERTO as needed neck CT to assess neck pain and hemoptysis, will need premedications for h/o contrast induced hives. may also need a bronchoscopy Call if symptoms worsen or persistent F/U 2-3 months Orders: Orders CT soft tissue neck w IV con Today M54.2 - Cervicalgia, R04.2 - Hemoptysis, R05.2 - Subacute cough Basic Metabolic Panel Today M54.2 - Cervicalgia, R04.2 - Hemoptysis, R05.2 - Subacute cough Coding Level of Care Code Est Pt Level 4 (21742) Diagnoses Hemoptysis R04.2 Subacute cough R05.2 Cough type: subacute Neck pain M54.2 WILIAM (obstructive sleep apnea) G47.33 Elevated diaphragm J98.6 Dyspnea on exertion R06.09 Dyspnea type: dyspnea on exertion Time Spent (min) 17
[2023-10-18 09:55] VITALS: BP 146/64; PULSE 61; O2SAT 97; BMI 30.8
== END 2023-10-18 10:19 | disposition home or self-care (01) ==
PROVIDERS: PCP Internal Medicine; Visit Provider Hospitalist
DX: R04.2 Hemoptysis (principal); R05.2 Subacute cough; M54.2 Cervicalgia; G47.33 Obstructive sleep apnea (adult) (pediatric); J98.6 Disorders of diaphragm; R06.09 Other forms of dyspnea
CPT/HCPCS: 99214

== ENCOUNTER → 2023-10-18 09:52 | Outpatient (BNVA) | payer OTHER, SELFPAY | PROVIDERS: PCP Internal Medicine; Visit Provider Hospitalist | DX: J44.9 Chronic obstructive pulmonary disease, unspecified (principal); R04.2 Hemoptysis; R05.2 Subacute cough; M54.2 Cervicalgia; G47.33 Obstructive sleep apnea (adult) (pediatric); J98.6 Disorders of diaphragm; R06.09 Other forms of dyspnea; Z99.89 Dependence on other enabling machines and devices | CPT/HCPCS: 99212 ==

== ENCOUNTER 2023-12-09 07:42 | Outpatient (REF) | payer OTHER, SELFPAY | END 2023-12-09 07:43 | disposition home or self-care (01) | LOC: HO.CT 07:42 | PROVIDERS: PCP Internal Medicine; Visit Provider Hospitalist | DX: Z13.89 Encounter for screening for other disorder (principal) ==

== ENCOUNTER 2023-12-21 14:09 | Outpatient (REF) | payer OTHER, SELFPAY ==
--- NOTE | ~2023-12-21 | CT_ITS ---
EXAMINATION: CT SOFT TISSUE NECK WITH CONTRAST CLINICAL INFORMATION: Hemoptysis, cough, neck pain COMPARISON: None available. TECHNIQUE: Following the intravenous administration of 60 mL of Omnipaque 350 intravenous contrast, helical imaging was performed in the axial plane with generation of coronal and sagittal reformatted images. This CT examination was performed using dose optimization techniques as appropriate, variously including the following: *Automated exposure control *Adjustment of mA and/or kV according to patient size (this includes techniques or standardized protocols for targeted exams where dose is matched to indication/reason for exam; i.e. extremities or head) *Use of iterative reconstruction technique DLP: 443 mGy-cm FINDINGS: PHARYNX: A poorly demarcated heterogeneously enhancing mass lesion is seen filling the left lateral oropharyngeal wall, replacing the left palatine tonsil, measuring 2.9 cm in AP diameter, 3.1 cm in width, 3.2 cm in vertical height. The visualized nasopharynx, hypopharynx are normal with no focal mass lesion. PHARYNGEAL STRUCTURES: Bilateral valleculae, epiglottis, piriform sinuses, vocal cords and arytenoids are normal. SALIVARY GLANDS: Bilateral parotid and submandibular salivary glands are symmetrical without focal lesion. LYMPH NODES: At C2-C3 junction level, left level 2A cervical lymph node is seen measuring 1.1 cm in AP diameter. At upper C3 level, 2 additional smaller left level 2A cervical lymph node with a hypoenhancing center are seen, measuring 0.9 cm in horizontal diameter. No abnormally enlarged superior mediastinal lymph nodes are seen. THYROID: No focal thyroid mass lesion is found. BONES: Multilevel cervical spondylosis including advanced degenerative cervical disc disease is seen. No fracture or dislocation. No focal bone lesion diagnostic of metastatic disease could be seen in the cervical spine and visualized skull base. LUNG APICES: The visualized lung apices are clear. There is marked asymmetric elevation of right hemidiaphragm, causing compression platelike atelectasis in right lower lobe. CT/CT soft tissue neck w IV con IMPRESSION: 1. A poorly demarcated heterogeneously enhancing mass lesion is seen filling the left lateral oropharyngeal wall, replacing the left palatine tonsil, highly suspicious of tonsillar carcinoma. 2. Left level 2A cervical necrotic lymph nodes are seen, suspicious of metastatic lymphadenopathy. 3. Marked asymmetric elevation of right hemidiaphragm, causing compression platelike atelectasis in right lower lobe.
[2023-12-21] MEDS: iohexoL 350 MG/ML 75 ML INFUS..BTL 60 ML IV (15:11)
[2023-12-22 08:10] LABS: Creatinine POC 0.7 mg/dL (0.5-1.4); GFR POC > 60
== END 2023-12-21 14:10 | disposition home or self-care (01) ==
LOC: HO.CT 14:09
PROVIDERS: Visit Provider Hospitalist
DX: R04.2 Hemoptysis (principal); R05.2 Subacute cough; M54.2 Cervicalgia
CPT/HCPCS: 70491; 82565; Q9967

== ENCOUNTER 2024-01-04 09:22 | Outpatient (AMB) | payer OTHER, SELFPAY ==
[2024-01-04 09:40] VITALS: BP 128/70; PULSE 57; O2SAT 96; BMI 28.6
--- NOTE | 2024-01-04 09:40 | A.OFFVIS_ITS ---
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 He has had up to 3 machines. The therapy has been affecting beneficial. He does use a fullface mask and this is comfortable for him. He does use it for more than 4 hours a night. He was previously getting it through [employer]. Will go ahead and request a download from his [employer] company, [employer] and will send a prescription also for supplies. The patient does complaint of some dyspnea on exertion. Usually when going up a flight as stairs or up at incline in the [id number] severity. We did review his last chest x-ray that was from December 2021 done at [facility]. It appears that he has a moderately elevated right hemidiaphragm resulting in some atelectasis in that area. The x-ray was not compare to there is no history. On further questioning he did have a serious accident with on a heavy machinery where he injured that lower chest area with the machinery. This could be secondary to th at. Although is not clear at this moment. Will go ahead and request the chest x-ray. If is still unclear of for looks worse than before we can also consider getting a CAT scan some PFTs. 12/30/2022 the patient is here for a pulmonary follow-up visit. Since we last spoke the patient states that he has been having some hemoptysis. Has been happening for the last few months. It started to settle down. He has not seen as frequent episodes in the blood appears to be darker. It is typically mixed in with saliva. Denies any epistaxis. He was evaluated by his primary care doctor initially with a chest x-ray and subsequently with a CT scan of the chest done at [facility]. I personally viewed. Again, he has the right hemidiaphragm elevated likely secondary to trauma. He does have atelectasis in that area. Difficult to assess that area since is abnormal. No other findings of any parenchymal disease or alveolar hemorrhage. Explained to him that the most common reason for coughing up blood is bronchitis. It could also be a posterior nasopharynx bleeding episode that is not resulting in any significant epistaxis. Either way will go ahead and treat him with doxycycline for the possibility of a smoldering respiratory infection causing some bleeding. However, if the patient is no better and continues having the blood or if he gets worse will go ahead and plan for bronchoscopy to better address the airways. The patient has been using his CPAP. I did download the machine. His AHI is down 0.7. He does use it about 9 hours a night. The therapy has been affecting beneficial. He is to continue using it as prescribed. He was asking about the hypoglossal nerve stimulator. I do not advise it for him. At this point the patient will follow-up in 2-3 months or sooner if he starts developing worsening hemoptysis again plan for bronchoscopy. 03/17/2023 the patient is here for a pulmonary sick visit. Apparently he was hospitalized recently after developing severe abdominal discomfort and found to have a perforated gallbladder. The patient did require surgery. He was hospitalized at [facility] for period of time. He was on oxygen while at [facility]. He was given antibiotics and the patient was subsequently discharged. Still having some shortness of breath with activity. Still not feeling completely strong. In addition to that has had this worsening cough and persistent cough that has been bothering him day and night. Typically the cough is nonproductive. On examination he does have some expiratory wheezing. Explained to him that he may have had some micro aspirations relating to aspiration related reactive airways disease and inflammatory changes. The patient did receive a nebulizer treatment in the office with improvement in resp iratory symptoms. His cough subsided significantly. He already completed multiple courses of antibiotics. In addition to that will try to avoid prednisone in view of his recent surgery to allow good healing. However, the patient's symptoms worsen he will call and I will send him additional medications. For now will keep him on a short-acting beta agonist that he can use as needed. also to note, during the office visit we did go for a walking oximetry. The patient has pulse ox with activity range around 92-92%. The patient is still not his baseline but he does not qualify for oxygen. We talked about the importance of deep breathing and walking to try to further expand his lungs and improve his lung capacity. 06/22/2023 the patient is here for a follow-up visit. Since we last spoke he was rehospitalized after having more complications due to the perforated gallbladder. He states he required multiple procedures and currently being followed closely by his surgeons. He has been using the CPAP. The CPAP therapy continues to be affecting beneficial. He even use it while in hospital. His major complaints at this point is that he has had some episodic hemoptysis. Sometimes is clear mucus and sometimes he notices that the blood. Seems like it has been better for the last few days. I did ask him about any bleeding elsewhere he denies any epistaxis and denies any bleeding from any other orifice. The blood appears to be bright red when it does come out. The patient did cough in the office but is mucus was clear without any specks of blood which is reassuring. His exam is also reassuring. I did also having undergo a chest x-ray demonstrating no acute disease. 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 The patient will monitor closely his symptoms if the hemoptysis returns or worsens he will call the office for an earlier assessment. Currently he is not on any blood thinners. 10/18/2023 the patient is here for pulmonary follow-up visit. He is still having issues after his hospitalization at [facility]. Still having episodes of hemoptysis. The patient complains of a sore throat. Hurts in some areas in the neck area. He is concerned after a lot of manipulations with the 80 to when he was intubated in the ICU and is also concerned with the fact that his father of head and neck cancer. I did during exam no evidence of any significant abnormalities noted in the posterior pharynx or in the gingiva to explain the bleeding. No evidence of any epistaxis. Will go ahead and request a CT scan of the neck to better address the neck pain in addition to the hemoptysis. We also talked about considering bronchoscopy to better evaluate that area as well. Will wait after the CT scan to perform bronchoscopy if he is still having episodes of bleeding. Will continue with the current respiratory therapy from now. He is using CPAP every night CPAP therapy continues to be affecting beneficial. He does use it every night for more than 4 hours a night. Will follow-up 6-[address] scan. If he has any worsening symptoms he will call prior to that. 01/04/2024 the patient is here for pulmonary follow-up visit. Overall the patient has been doing fair. He still complains of his difficulty swallowing addition to that he has had the persistent hemoptysis. Sometimes he has bright red blood. He feels is coming from the throat. He feels is related to his intubation. Therefore, we had him undergo CT scan of the neck. His oropharynx appears to be intact. In the area of the larynx in the vocal cords this is a little bit less clarity. Therefore, will go ahead and perform bronchoscopy at this point to better assess the area of the larynx for any injury and also to assess the trachea proximal trachea for any irritations or areas of bleeding. In the meantime also reassess the nasopharynx and the lower respiratory tract also assessing for any further areas of irritation and bleeding. In the meantime the patient has been using the CPAP the CPAP therapy has been affecting beneficial. Continues use it more than 4 hours a night. We will undergo the bronchoscopy tomorrow since we have an opening available. The patient will be kept NPO. She does take a baby aspirin which she is okay for him to continue. [facility] Medical History (Updated 10/18/23 @ 10:14 by Taj Jernigan MD) Neck pain Dyspnea Elevated diaphragm WILIAM (obstructive sleep apnea) Hypogonadism in male Urgency incontinence Renal stones BPH (benign prostatic hyperplasia) Hypogonadism Family History Other CVD (cardiovascular disease) Cancer Pancreatic cancer Social History (Updated 10/18/23 @ 10:00 by Katelin Singer LPN) Patient Tobacco Use Status: Never used Tobacco Review of Systems Const Denies chills and Denies fever(s) ENT Denies nasal congestion, Reports neck pain and Reports sore throat Card Reports no additional complaints, Denies syncope and Reports dyspnea on exertion Resp Reports cough, Reports hemoptysis, Reports dyspnea on exertion and Denies wheezing GI Denies abdominal pain and Denies heartburn Musc Reports no additional complaints and Reports neck pain Skin/Breast Denies rash Neuro Denies syncope Darwin/Lymph Denies lymphadenopathy Aller/Immun Denies wheezing Physical Exam Vital Signs: Last Vital Signs Pulse 57 01/04/24 09:40 BP 128/70 01/04/24 09:40 Pulse Ox 96 01/04/24 09:40 Oxygen Delivery Method Room Air 01/04/24 09:40 BMI result Body Mass Index 28.6 Const General: comfortable HEENT Head: Yes normocephalic Mouth: Normal oral and palatal mucosa present Teeth and gingiva: dentures Throat: Yes posterior oropharynx normal Eyes General: appearance normal, both eyes and all related structures Neck Neck: Yes supple Chest Chest palpation & inspection: normal inspection of the chest Resp Effort & Inspection: normal respiratory effort Auscultation: no wheezes and diminished lung sounds Cardio Rate: regular rate Rhythm: regular rhythm Heart sounds: S1 normal heart sound present and S2 normal heart sound present Skin General skin exam: no rashes or lesions noted Extrem General: Yes no clubbing, cyanosis or edema Results Reviewed Results Reviewed: Personally reviewed the CT scan of the neck done 01/08/2024. Appears to have normal sinuses. Nasal passages are clear. The tongue in the hard palate appears to be intact. The laryngeal areas little bit less clear. Trachea proximal trachea appears to be intact. Upper airway lungs appear to be intact. Will await final read. Assessment & Plan Assessment & Plan (1) Hemoptysis: Code(s): R04.2 - Hemoptysis Category: Medical (2) Cough: Code(s): R05.9 - Cough, unspecified Category: Medical Qualifiers: Cough type: subacute Qualified Code(s): R05.2 - Subacute cough (3) Neck pain: Code(s): M54.2 - Cervicalgia Category: Medical (4) WILIAM (obstructive sleep apnea): Code(s): G47.33 - Obstructive sleep apnea (adult) (pediatric) Category: Medical (5) 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 - Disorders of diaphragm Category: Medical (6) Dyspnea: Code(s): R06.00 - Dyspnea, unspecified Category: Medical Qualifiers: Dyspnea type: dyspnea on exertion Qualified Code(s): R06.09 - Other forms of dyspnea Plan continue APAP, 8-12 AHI 0.7 continue ROVERTO as needed bronchoscopy to assess the hemoptysis Awaiting final read on CT neck F/U 2-3 months Coding Level of Care Code Est Pt Level 5 (45248) Diagnoses Hemoptysis R04.2 Subacute cough R05.2 Cough type: subacute Neck pain M54.2 WILIAM (obstructive sleep apnea) G47.33 Elevated diaphragm J98.6 Dyspnea on exertion R06.09 Dyspnea type: dyspnea on exertion Time Spent (min) 35
== END 2024-01-04 10:06 | disposition home or self-care (01) ==
PROVIDERS: PCP Internal Medicine; Visit Provider Hospitalist
DX: R04.2 Hemoptysis (principal); R05.2 Subacute cough; M54.2 Cervicalgia; G47.33 Obstructive sleep apnea (adult) (pediatric); J98.6 Disorders of diaphragm
CPT/HCPCS: 99214

== ENCOUNTER → 2024-01-04 09:22 | Outpatient (BNVA) | payer OTHER, SELFPAY | PROVIDERS: PCP Internal Medicine; Visit Provider Hospitalist | DX: G47.33 Obstructive sleep apnea (adult) (pediatric) (principal); R04.2 Hemoptysis; R05.2 Subacute cough; M54.2 Cervicalgia; J98.6 Disorders of diaphragm; R06.09 Other forms of dyspnea | CPT/HCPCS: 99212 ==

== ENCOUNTER 2024-01-05 09:57 | Day surgery (SDC) | payer OTHER, SELFPAY ==
--- NOTE | 2024-01-04 13:41 | HO.ANESPROP2 ---
Documented by User: Rashida Casillas NP 01/04/24 13:41 HPI - Anesthesia Eval Consult details Narrative: 68yo M for Bronchoscopy Fiberoptic PMFSH Active Problems Active Problems: All Active Problems Neck pain (Acute) Cough (Acute) Hemoptysis (Acute) Dyspnea (Acute) Elevated diaphragm (Acute) WILIAM (obstructive sleep apnea) (Acute) Erectile dysfunction (Acute) Hypogonadism in male (Acute) BPH (benign prostatic hyperplasia) (Acute) Renal stones (Acute) Hypogonadism (Acute) Past Medical History Medical History Neck pain Dyspnea Elevated diaphragm WILIAM (obstructive sleep apnea) Hypogonadism in male Urgency incontinence Renal stones BPH (benign prostatic hyperplasia) Hypogonadism Family History Family History Other CVD (cardiovascular disease) Cancer Pancreatic cancer Social History Social History Patient Tobacco Use Status: Never used Tobacco Use of substances other than those prescribed or required for medical reasons: No Are you DNR?: No Advance Directives: No Advance Directives Information Provided: Yes Meds Allergies Allergy/AdvReac Type Severity Reaction Status Date / Time Iodinated Contrast Media Allergy Intermediate HIVES Verified 01/04/24 09:43 [IV Dye, Iodine Containing] IV contrast Allergy Unknown rash Uncoded 01/04/24 09:43 Home Medications ?Medication ?Instructions ?Recorded ?Confirmed ?Last Taken ?Type atorvastatin 40 mg tablet 40 mg PO BEDTIME 07/04/20 01/05/24 Unknown History buspirone 5 mg tablet 5 mg PO BID anxiety 07/04/20 01/05/24 01/05/24 History gemfibrozil 600 mg tablet 600 mg PO BID 07/04/20 01/05/24 01/05/24 History hydrochlorothiazide 12.5 mg capsule 12.5 mg PO DAILY 07/04/20 01/05/24 Unknown History lisinopril 20 mg tablet 20 mg PO DAILY 07/04/20 01/05/24 Unknown History metoprolol succinate 50 mg 50 mg PO DAILY 07/04/20 01/05/24 01/05/24 History tablet,extended release 24 hr pantoprazole 40 mg tablet,delayed 40 mg PO DAILY 07/04/20 01/05/2401/04/24 History release tizanidine 2 mg capsule 2 mg PO BEDTIME 07/04/20 01/05/24 Unknown History venlafaxine 37.5 mg 37.5 mg PO DAILY 07/04/20 01/05/24 Unknown History capsule,extended release 24 hr CPAP (CPAP Machine/Device) 09/02/22 01/26/23 Unknown History losartan 50 mg tablet 50 mg PO DAILY 12/30/22 01/05/24 Unknown History magnesium oxide 400 mg (241.3 mg 400 mg PO DAILY 12/30/22 01/05/24 Unknown History magnesium) tablet fluoxetine 20 mg capsule 20 mg PO DAILY 09/07/23 01/05/24 Unknown History Documented by User: Viri Greco MD 01/05/24 11:46 PMFSH Active Problems Active Problems: All Active Problems Neck pain (Acute) Cough (Acute) Hemoptysis (Acute) Dyspnea (Acute) Elevated diaphragm (Acute) WILIAM (obstructive sleep apnea) (Acute). Uses CPAP Erectile dysfunction (Acute) Hypogonadism in male (Acute) BPH (benign prostatic hyperplasia) (Acute) Renal stones (Acute) Hypogonadism (Acute) Dysphagia Past Medical History Medical History Neck pain Dyspnea Elevated diaphragm WILIAM (obstructive sleep apnea) Hypogonadism in male Urgency incontinence Renal stones BPH (benign prostatic hyperplasia) Hypogonadism Family History Family History Other CVD (cardiovascular disease) Cancer Pancreatic cancer Family history of problems with anesthesia: No Surgical History History of Problems with Anesthesia: No Social History Social History Patient Tobacco Use Status: Never used Tobacco Use of substances other than those prescribed or required for medical reasons: No Are you DNR?: No Advance Directives: No Advance Directives Information Provided: Yes Meds Allergies Allergy/AdvReac Type Severity Reaction Status Date / Time Iodinated Contrast Media Allergy Intermediate HIVES Verified 01/04/24 09:43 [IV Dye, Iodine Containing] IV contrast Allergy Unknown rash Uncoded 01/04/24 09:43 Home Medications ?Medication ?Instructions ?Recorded ?Confirmed ?Last Taken ?Type atorvastatin 40 mg tablet 40 mg PO BEDTIME 07/04/20 01/05/24 Unknown History buspirone 5 mg tablet 5 mg PO BID anxiety 07/04/20 01/05/24 01/05/24 History gemfibrozil 600 mg tablet 600 mg PO BID 07/04/20 01/05/24 01/05/24 History hydrochlorothiazide 12.5 mg capsule 12.5 mg PO DAILY 07/04/20 01/05/24 Unknown History lisinopril 20 mg tablet 20 mg PO DAILY 07/04/20 01/05/24 Unknown History metoprolol succinate 50 mg 50 mg PO DAILY 07/04/20 01/05/24 01/05/24 History tablet,extended release 24 hr pantoprazole 40 mg tablet,delayed 40 mg PO DAILY 07/04/20 01/05/24 01/05/24 History release tizanidine 2 mg capsule 2 mg PO BEDTIME 07/04/20 01/05/24 Unknown History venlafaxine 37.5 mg 37.5 mg PO DAILY 07/04/20 01/05/24 Unknown History capsule,extended release 24 hr CPAP (CPAP Machine/Device) 09/02/22 01/26/23 Unknown History losartan 50 mg tablet 50 mg PO DAILY 12/30/22 01/05/24 Unknown History magnesium oxide 400 mg (241.3 mg 400 mg PO DAILY 12/30/22 01/05/24 Unknown History magnesium) tablet fluoxetine 20 mg capsule 20 mg PO DAILY 09/07/23 01/05/24 Unknown History Exam Height,Weight and Vital Signs: Height 5 ft 9 in Weight 88.451 kg Vital Signs Temp Pulse Resp BP Pulse Ox O2 Del Method 01/05/24 10:45 97.0 F 56 16 121/82 98 Room Air Airway Mallampati Class: II TM Dist: >3cm Neck ROM: Full Partial: Upper Loose/Missing/Broken Teeth: Yes (Denies broken or loose teeth) Heart: RRR Lungs: CTAB Assessment and Plan Assessment Anesthesia Assessment: Anesthesia Plan Discussed and Chart Reviewed Final Anesthetic Review Family History of Problems with Anesthesia: No History of Problems with Anesthesia: No NPO: Yes ASA Class: III Final Preanesthetic Review: No Changes in Pt Med Stat, Meds/Allgs Chart Reviewed, Consent Obtained/Reviewed and Anes Risks/Benef Reviewed Patient Risk: Intermediate Procedure Risk: Low Assessment/Block/Sedation in SS: Assess/Block/Sedation-SS Anesthetic Plan Anesthetic Plan: GA Disposition: Standard PACU
[2024-01-05] VITALS (9 sets, daily range): BP systolic 108–137; BP diastolic 54–83; PULSE 56–76; RESP 16–20; TEMP 36.1–36.5; O2SAT 93–98; BMI 28.8
--- OUTSIDE RECORDS SUMMARY | 2024-01-05 09:59 | XMS_ITS | Continuity of Care Document ---
Author Organization [facility] Aki lt Address [address] [place] [address]- Care Team Providers Care Project Technician Name Role Phone Magaly BARNARD, Min Blackman Primary Care Physician [phone] [facility] Date[facility]s): 10/[facility]/22 - 11/20/22 [facility] Adult [address] [place] [address]- Allergies, Adverse Reactions, Alerts Substance Reaction Severity Status Contrast Dye 1 hives Active 1IODINATED Immunizations Given and Recorded Vaccine Date Status Refusal Reason SARS-CoV-2 (COVID-19) mRNA BNT-162b2 vac 07/10/21 Given influenza virus vaccine, inactivated 07/10/21 Give n influenza virus vaccine, inactivated 02/19/19 Rigoberto rded influenza virus vaccine, inactivated 03/25/18 Rigoberto rded influenza virus vaccine, inactivated 05/25/17 Give n influenza virus vaccine, inactivated 1 02/28/15 Re corded influenza virus vaccine, inactivated 03/18/14 Rigoberto rded influenza virus vaccine, inactivated 02/11/14 Rigoberto rded influenza virus vaccine, inactivated 2 03/22/13 Re corded influenza virus vaccine, inactivated 3 02/24/12 Re corded SARS-CoV-2 (COVID-19) Ad26 vaccine 4 01/07/21 Give n Influenza Virus Vaccine (oldterm) 03/05/20 Recorde d tetanus/diphtheria/pertussis, acel(Tdap) 11/29/18 Given tetanus/diphtheria/pertussis, acel(Tdap) 5 08/13/09 Recorded Zoster Vaccine Live 6 05/05/12 Recorded pneumococcal 23-valent vaccine 7 08/13/09 Recorded Hepatitis A Vaccine (oldterm) 8 08/29/07 Given Hepatitis A Vaccine (oldterm) 02/02/07 Given tetanus-diphtheria toxoids (Td) 02/02/07 Given 1Location History: [facility] 2Location History: [facility] 3Location History: [facility] 4Result Comment: [id number] 5Location History: [facility] 6Location History: [facility] 7Location History: [facility] 8Admin Note: [facility] #2 Medications AndroGel 40.5 mg (1.62%) transdermal gel 2 pack/packet, Topically, Daily in AM, 0 Refills, Maintenance, 11/23/16 9:48:36, Gel Start Date: 11/23/16 Status: Ordered Aspirin = 81 mg, By Mouth, Daily, 0 Refills, Maintenance, 04/13/14 12:22:34 Start Date: 04/13/14 Status: Ordered atorvastatin 40 mg oral tablet 1 tablet, By Mouth, Daily at bedtime, # 90 tablet, 3 Refills, Maintenance, 08/17/22 11:12:00 EST, [facility] #[id number], 175.3, cm, 08/17/22 10:47:00 EST, Height, 98.4, kg, 09/12/20 8:51:00 EDT, Dry Weight Start Date: 08/17/22 Status: Ordered erythromycin 0.5% ophthalmic ointment 0.5 inches, Eyes, Both, 4 times a day, # 4 Gm, 0 Refills, Maintenance, 10/22/22 10:20:00 EDT, OphthOintment, [facility] #[id number], Partial fill upon patient request if the prescription is fora schedule II opioid drug., 0.5 inches Eyes, Both 4... Start Date: 10/22/22 Status: Ordered Fish Oil 1200 mg oral capsule 1 capsule = 1,200 mg, By Mouth, Daily, 0 Refills, Maintenance, 04/13/14 12:24:12 Start Date: 04/13/14 Status: Ordered gemfibrozil 600 mg oral tablet 1, tablet, By Mouth, 2 times a day, # 180 tablet, Refills 3, Tot. Refills 3, Maintenance, 08/17/22 11:12:00 EST, Route to Pharmacy Electronically, [facility] #[id number], 175.3, cm, 08/17/22 10:47:00 EST, Height, 98.4, kg, 09/12/20 8:51:00 EDT, D... Start Date: 08/17/22 Status: Ordered hydroCHLOROthiazide 12.5 mg oral capsule 1 capsule, By Mouth, Daily, # 90 capsule, 3 Refills, 08/17/22 11:12:00 EST, [facility] #[id number], 175.3, cm, 08/17/22 10:47:00 EST, Height, 98.4, kg, 09/12/20 8:51:00 EDT, Dry Weight Start Date: 08/17/22 Status: Ordered lisinopril 20 mg oral tablet 1, tablet, By Mouth, Daily, # 90 tablet, Refills 3, Tot. Refills 3, Maintenance, 08/17/22 11:12:00 EST, Route to Pharmacy Electronically, [facility] #[id number], 175.3, cm, 08/17/22 10:47:00 EST, Height, 98.4, kg, 09/12/20 8:51:00 EDT, Dry Weight Start Date: 08/17/22 Status: Ordered losartan 50 mg oral tablet 50 mg, 1, tablet, By Mouth, Daily, Refills 0, Maintenance, 10/16/22 14:43:00 EDT, Partial fill uponpatient request if the prescription is for a schedule II opioid drug. Start Date: 10/16/22 Status: Ordered Magnesium Carbonate = 54 mg, By Mouth, Daily, 0 Refills, Maintenance, 10/16/22 14:44:00 EDT, Partial fill upon patient request if the prescription is for a schedule II opioid drug. Start Date: 10/16/22 Status: Ordered Metoprolol Succinate ER 50 mg oral tablet, extended release 1 tablet, By Mouth, Daily, # 90 tablet, 3 Refills, Maintenance, 08/17/22 11:12:00 EST, [facility] #[id number], 175.3, cm, 08/17/22 10:47:00 EST, Height, 98.4, kg, 09/12/20 8:51:00 EDT, Dry Weight Start Date: 08/17/22 Status: Ordered MiraLax oral powder for reconstitution = 17 Gm, By Mouth, Daily, # 527 Gm, 6 Refills, Maintenance, 11/25/18 9:19:35 EDT, 17 Gm By Mouth Daily Start Date: 11/25/18 Status: Ordered Multivitamin By Mouth, Daily, 0 Refills, Maintenance, 04/24/14 11:54:01 Start Date: 04/24/14 Status: Ordered nitroglycerin 0.4 mg sublingual tablet 1 tablet = 0.4 mg, Sublingual, Every 5 minutes, PRN Chest Pain, not to exceed 3 doses/15 min--if pain persists, seek medical attention Call 911, # 60 tablet, 11 Refills, Maintenance, 11/23/17 11:14:25 EDT Start Date: 11/23/17 Status: Ordered pancreatin oral tablet 2 tablet, By Mouth, 6 times a day, Take 2 tables before every meal and snack, # 360 tablet, 4 Refills, Maintenance, 09/10/17 10:56:11, Tablet Start Date: 09/10/17 Status: Ordered pantoprazole 40 mg oral delayed release tablet 1 tablet, By Mouth, Daily, # 90 tablet, 3 Refills, Maintenance, 08/17/22 11:12:00 EST, 175.3, cm, 08/17/22 10:47:00 EST, Height, 98.4, kg, 09/12/20 8:51:00 EDT, Dry Weight Start Date: 08/17/22 Status: Ordered Saw Varney By Mouth, 0 Refills, Maintenance, 08/17/22 11:05:00 EST, Partial fill upon patient request if the prescription is for a schedule II opioid drug. Start Date: 08/17/22 Status: Ordered Problem List Condition Confirmation Course Effective Dates Status H ealt Status Informant Benign prostatic hyperplasia Confirmed Active Constipation, chronic Confirmed Active Chronic kidney disease (CKD) 1 Confirmed Active CAD (coronary artery disease) 2 Confirmed Active Leg cramps Confirmed Active Testosterone deficiency Confirmed Active Concentration deficit Confirmed Active GERD (gastroesophageal reflux disease) Confirmed Active Hemorrhoids 3 Confirmed Active History of rectal cancer Confirmed Active History of myocardial infarction Confirmed Active Hyperlipidemia Confirmed Active Hypertension Confirmed Active Arthralgia Confirmed Active Nephrolithiasis Confirmed Active Depression, major, in remission Confirmed Active Hypogonadism male Confirmed Active Metatarsalgia of both feet Confirmed Active Obese class I Confirmed Active WILIAM on CPAP Confirmed Active Sleep apnea Confirmed Active 1STAGE 2 angioplasty with atherectomy. 2004 angioplasty with stent 3WITH BLEEDING Social History Social History Type Response Smoking Status Never smoker entered on: 07/12/14 Sex Patient Care team information Care Team Personnel Name: Charleen Neri RN Position: [facility] RN Member Role: Primary Care Nurse Name: Min Mckenzie MD Position: [facility] Physician - Primary Care Member Role: PCP Address: Address: [address] [place] [address]- [place] Name: Vianey Gonzales NP Position: [facility] Associate Professional Member Role: Primary Care Nurse Address: Address: [address] [place] [address] Trauma [place] [address]- [place] Name: Mara Daly RN Position: [facility] ED RN W/OE and Tasks Member Role: Primary Care Nurse Care Team Related Persons Name: PEDRO TACOS Address: [place] [address] [place] [id number]
--- OUTSIDE RECORDS SUMMARY | 2024-01-05 09:59 | XMS_ITS | Continuity of Care Document ---
Author Organization [facility] Address [address] [place] [address] [address] [place] [address]- Care Team Providers Care Family Services Manager Name Role Phone Min Mckenzie MD Primary Care Physician [facility] Date(s): 02/23/23 - 03/02/23 [facility] [address] [place] [address]- Attending Physician: Prateek Kenyon MD Allergies, Adverse Reactions, Alerts Substance Reaction Severity Status Contrast Dye 1 hives Active 1IODINATED Immunizations Given and Recorded Vaccine Date Status Refusal Reason pneumococcal 20-valent conjugate vaccine 02/04/23 Given SARS-CoV-2 (COVID-19) mRNA BNT-162b2 vac 07/10/21 Given [...] 3Location History: [facility] 4Result Comment: [id number] 5Location History: [facility] 6Location History: [...] bedtime, # 90 tablet, 3 Refills, Maintenance, 02/04/23 9:18:00 EDT, [facility] #[id number], 175.3, cm, 02/04/23 8:41:00 EDT, Height Start Date: 02/04/23 Status: Ordered erythromycin 0.5% ophthalmic ointment 0.5 inches, Eyes, Both, 4 times a day, # 4 Gm, 0 Refills, Maintenance, 10/22/22 10:20:00 EDT, OphthOintment, [facility] #[id number], Partial fill upon patient request if the [...] tablet, Refills 3, Tot. Refills 3, Maintenance, 02/04/23 9:18:00 EDT, Route to Pharmacy Electronically, [facility] #[id number], 175.3, cm, 02/04/23 8:41:00 EDT, Height Start Date: 02/04/23 Status: Ordered losartan 50 mg oral tablet 50 mg, 1, tablet, By Mouth, Daily, # 90 tablet, Refills 3, Tot. Refills 3, Maintenance, 02/04/23 9:19:00 EDT, Route to Pharmacy Electronically, [facility] #[id number], Partial fill upon patient request if the prescription is for a schedule II opi... Start Date: 02/04/23 Stop Date: 01/30/24 Status: Ordered Magnesium Carbonate = 54 mg, By Mouth, Daily, 0 Refills, Maintenance, 10/16/22 14:44:00 EDT, Partial fill upon patient request if the prescription is for a schedule II opioid drug. Start Date: 10/16/22 Status: Ordered Metoprolol Succinate ER 50 mg oral tablet, extended release 1 tablet, By Mouth, Daily, # 90 tablet, 3 Refills, Maintenance, 02/04/23 9:18:00 EDT, [facility] #[id number], 175.3, cm, 02/04/23 8:41:00 EDT, Height Start Date: 02/04/23 Status: Ordered MiraLax oral powder for reconstitution = 17 Gm, By Mouth, Daily, # 527 Gm, 6 Refills, Maintenance, 11/25/18 9:19:35 EDT, 17 Gm By Mouth Daily Start Date: 11/25/18 Status: Ordered nitroglycerin 0.4 mg sublingual tablet [...] Daily, # 90 tablet, 3 Refills, Maintenance, 02/04/23 9:18:00 EDT, 175.3, cm, 02/04/23 8:41:00 EDT, Height Start Date: 02/04/23 Status: Ordered Problem List Condition Confirmation Course Effective Dates Status H ealth Status Informant Benign prostatic hyperplasia Confirmed Active Constipation, chronic Confirmed Active Chronic kidney disease (CKD) 1 Confirmed Active CAD (coronary artery disease) 2 Confirmed Active Leg cramps Confirmed Active Testosterone deficiency Confirmed Active Concentration deficit Confirmed Active GERD (gastroesophageal reflux disease) Confirmed Active Hemoptysis Confirmed Active Hemorrhoids 3 Confirmed Active History of rectal cancer Confirmed Active History of myocardial infarction Confirmed Active Hyperlipidemia Confirmed Active Hypertension Confirmed Active Arthralgia Confirmed Active Nephrolithiasis Confirmed Active Depression, major, in remission Confirmed Active Hypogonadism male Confirmed Active Metatarsalgia of both feet Confirmed Active Obese class I Confirmed Active WILIAM on CPAP Confirmed Active Plantar fasciitis, left Confirmed Active Sleep apnea Confirmed Active 1STAGE 2 angioplasty with atherectomy. 2004 angioplasty with stent 3WITH BLEEDING Vital Signs Most recent to oldest [Reference Range]: 1 Height 175 cm (02/23/23 3:38 PM) Weight 92.2 kg (02/23/23 3:38 PM) Pulse Rate [55-90 bpm] 104 bpm *H* (02/23/23 3:38 PM) Body Mass Index [18.5-24.99 kg/m2] 30.11 kg/m2 *>HHI* (02/23/23 3:38 PM) Blood Pressure [90-138/55-84 mm Hg] 111/ 63mm Hg (02/23/23 3:38 PM) Temperature [96.8-100.4 DegF] 96.7 DegF *L* (02/23/23 3:38 PM) Blood pressure sites Arm, left (02/23/23 3:38 PM) Temperature Route Temporal (02/23/23 3:38 PM) Weight Obtained Via Standing scale (02/23/23 3:38 PM) Social History Social History Type Response Smoking Status Never smoker entered on: 07/12/14 Sex Patient Care team information Care Team Personnel Name: Sasha Queen RN Position: S RN Member Role: Primary Care Nurse Name: Charleen Neri RN Position: S RN Member Role: Primary Care Nurse Name: Min Mckenzie MD Position: S Physician - Primary Care Member Role: PCP Address: Address: [address] [place] [address] [facility] [place] [address]- [place] Name: Vianey Gonzales NP Position: [facility] Associate Professional Member Role: Primary Care Nurse Address: Address: [address] [place] [address] Trauma [place] [address]- [place] Name: Felecia Villegas LPN Position: S RN Member Role: Primary Care Nurse Name: Geovanna Kumari RN Position: S RN Member Role: Primary Care Nurse Name: Tali Paul RN Position: [facility] RN Member Role: Primary Care Nurse Name: Alicia Croft RN Position: [facility] RN Member Role: Primary Care Nurse Name: Luisa Mitchell RN Position: [facility] RN Member Role: Primary Care Nurse Name: Nirav Nicholson RN Position: [facility] RN Member Role: Primary Care Nurse Name: Mara Miranda RN Position: [facility] RN Member Role: Primary Care Nurse Name: Mara Daly RN Position: [facility] ED RN W/OE and Tasks Member Role: Primary Care Nurse Name: Emy Balderas LPN Position: [facility] RN Member Role: Primary Care Nurse Care Team Related Persons Name: CIROTACOS POOL Address: [place] [address] [place] [id number]
--- OUTSIDE RECORDS SUMMARY | 2024-01-05 09:59 | XMS_ITS | Continuity of Care Document ---
Author Organization [facility] Address [address] [place] [address]- Care Team Providers Care Reptile Keeper Name Role Phone Min Mckenzie MD Primary Care Physician [phone] Encounter [facility] Date(s): 02/04/23 - 02/11/23 [facility] [address] [place] [address]- Encounter Diagnosis Constipation, chronic(Discharge Diagnosis) - 02/04/23 Depression, major, in remission(Discharge Diagnosis) - 02/04/23 Attending Physician: Min Mckenzie MD Allergies, Adverse Reactions, Alerts Substance Reaction [...] tetanus/diphtheria/pertussis, acel(Tdap) 11/29/18 Given tetanus/diphtheria/pertussis, acel(Tdap) 5 2/23/10 Recorded Zoster Vaccine Live 6 05/05/12 Recorded pneumococcal 23-valent vaccine 7 08/13/09 Recorded Hepatitis A Vaccine (oldterm) 8 08/29/07 Given Hepatitis A Vaccine (oldterm) 02/02/07 Given tetanus-diphtheria toxoids (Td) 02/02/07 Given 1[facility] 2Location History[facility] 3Location History: [facility] 4Result Comment: [id number] 5Location History: [facility] 6Location History: [...] tablet, 3 Refills, Maintenance, 02/04/23 9:18:00 EDT, [facility] #[id number], 175.3, cm, 02/04/23 8:41:00 EDT, Height Start Date: 02/04/23 Status: Ordered erythromycin 0.5% ophthalmic ointment 0.5 inches, Eyes, Both, 4 times a day, # 4 Gm, 0 Refills, Maintenance, 10/22/22 10:20:00 EDT, OphthOintment, [facility] #[id number], Partial fill upon patient request if the [...] 02/04/23 9:18:00 EDT, Route to Pharmacy Electronically, [facility] #[id number], 175.3, cm, 02/04/23 8:41:00 EDT, Height Start Date: 02/04/23 Status: Ordered hydroCHLOROthiazide 12.5 mg oral capsule 1 capsule, By Mouth, Daily, # 90 capsule, 3 Refills, 02/04/23 9:18:00 EDT, [facility] #[id number], 175.3, cm, 02/04/23 8:41:00 EDT, Height Start Date: 02/04/23 Status: Ordered losartan 50 mg oral tablet 50 mg, 1, tablet, By Mouth, Daily, # 90 tablet, Refills 3, Tot. Refills 3, Maintenance, 02/04/23 9:19:00 EDT, Route to Pharmacy Electronically, [facility] #[id number], Partial fill upon patient request if the [...] tablet, 3 Refills, Maintenance, 02/04/23 9:18:00 EDT, [facility] #[id number], 175.3, cm, 02/04/23 8:41:00 EDT, Height Start [...] EDT, Height Start Date: 02/04/23 Status: Ordered Saw [place] By Mouth, 0 Refills, Maintenance, 08/17/22 11:05:00 [...] atherectomy. 2004 angioplasty with stent 3WITH BLEEDING Diagnosis Diagnosis Type Effective Dates Health Status inical Service Informant Constipation, chronic Discharge Diagnosis 02/04/23 Depression, major, in remission Discharge Diagnosis 02/04/23 Vital Signs Most recent to oldest [Reference Range]: 1 Height 175.3 cm (02/04/23 8:41 AM) Weight 101.3 kg (02/04/23 8:41 AM) Oxygen Saturation [94-100 %] 98 % (02/04/23 8:41 AM) Pulse Rate [55-90 bpm] 72 bpm (02/04/23 8:41 AM) Body Mass Index [18.5-24.99 kg/m2] 32.96 kg/m2 *>HHI* (02/04/23 8:41 AM) Blood Pressure [90-138/55-84 mm Hg] 110/ 80mm Hg (02/04/23 8:41 AM) Mode of Delivery (Oxygen) Room air (02/04/23 8:41 AM) Blood pressure sites Arm, left (02/04/23 8:41 AM) Weight Obtained Via Standing scale (02/04/23 8:41 AM) Social History Social History Type Response Smoking Status Never smoker entered on: 07/12/14 Sex Note * Damon Suzanne: PERFORM, SIGN, VERIFY Event Display: Patient Education/Instruction Authored Date: [id number] [facility] *[facility] So Riley Arzola Clinical Summary Name MAURO VASQUEZ Age 67 Years 1955 PCP Min Mckenzie MD PCP Visit Date 02/04/2023 08:24:00 Additional Instructions: Scheduled Appointments?? Future Appointments ?No Future Appointments Scheduled Follow-Up Instructions ?? With: Address: When: Magaly BARNARD, Min Blackman In 6 months Diagnosis Other constipation; Major depressive disorder, single episode, in full remission; Hemoptysis Medications: Please continue your medications until treatment is completed or stopped by your provider. Discuss any questions related to medications with your provider. Medications to Continue Taking That Have Changed [facility] #[id number], [address], [place] [id number], [phone] - Losartan (losartan 50 mg oral tablet) 1 tab(s) Oral Daily for 90 Days. Refills: 3. Next Dose: Medications to Continue with No Changes [facility] #[id number], [address], [place] [id number], [phone] Atorvastatin (atorvastatin 40 mg oral tablet) 1 tab(s) Oral Daily at Bedtime. Refills: 3. Next Dose: Gemfibrozil (gemfibrozil 600 mg oral tablet) 1 tab(s) Oral twice a day. Refills: 3. Next Dose: Hydrochlorothiazide (hydroCHLOROthiazide 12.5 mg oral capsule) 1 capsule Oral Daily. Refills: 3. Next Dose: Metoprolol (Metoprolol Succinate ER 50 mg oral tablet, extended release) 1 tab(s) Oral Daily. Refills: 3. Next Dose: Pantoprazole (pantoprazole 40 mg oral delayed release tablet) 1 tab(s) Oral Daily. Refills: 3. Next Dose: These medications were not printed or sent to your pharmacy Aspirin 81 Milligram Oral Daily. Next Dose: Durable Medical Equipment (Electric Heating pad) Dx: Urinary frequency (R35.0) Urinary urgency (39.15) Changes per day - 3 SANDY: Lifetime WT: 216lbs. Refills: 0. Next Dose: Durable Medical Equipment (Medium size Pull ups depends) Dx: Urinary frequency (R35.0) Urinary urgency (39.15) Changes per day - 3 SANDY: Lifetime WT: 216lbs. Refills: 11. Next Dose: Durable Medical Equipment (Reusable bed pads) Dx: Urinary frequency (R35.0) Urinary urgency (39.15) Changes per day - 3 SANDY: Lifetime WT: 216lbs. Refills: 1. Next Dose: Erythromycin Ophthalmic (erythromycin 0.5% ophthalmic ointment) 0.5 Inch Both eyes 4 times a day. Refills: 0. Next Dose: Magnesium Carbonate 54 Milligram Oral Daily. Next Dose: Multivitamin Oral Daily. Next Dose: Nitroglycerin (nitroglycerin 0.4 mg sublingual tablet) 1 tab(s) Sublingual every 5 minutes as needed Chest Pain. not to exceed 3 doses/15 min--if pain persists, seek medical attention Call 911. Refills: 11. Next Dose: Marion-3 Polyunsaturated Fatty Acids (Fish Oil 1200 mg oral capsule) 1 capsule Oral Daily. Next Dose: Pancreatin (pancreatin oral tablet) 2 tab(s) Oral 6 times a day. Take 2 tables before every meal and snack. Refills: 4. Next Dose: Polyethylene Glycol 3350 (MiraLax oral powder for reconstitution) 17 gram Oral Daily. Refills: 6. Next Dose: Saw [place] Oral. Next Dose: Testosterone (AndroGel 40.5 mg (1.62%) transdermal gel) 2 pack/packet Topically Daily in the morning. Next Dose: No Longer Take the Following Medications Lisinopril (lisinopril 20 mg oral tablet) 1 tab(s) Oral Daily. Refills: 3. Allergy Info:?? Contrast Dye Medications Given This Visit Future Orders ?CBC? Order Date:02/04/23?- Complete on or after?02/04/23 ?Comprehensive Metabolic Panel? Order Date:02/04/23?- Complete on or after?02/04/23 ?Lipid Panel? Order Date:02/04/23?- Complete on or after?02/04/23 ?Thyroid Panel? Order Date:02/04/23?- Complete on or after?02/04/23 Vital Signs Height 175.3 cm Weight 101.3 kg BMI 32.96 kg/m2 Blood Pressure 110 mm Hg/80 mm Hg Temperature Pulse Rate 72 bpm Respiratory Rate 02 Sat Mode of Delivery 98 %/Room air You can now view a summary of your hospital visit from the comfort of your home through a free online portal called [employer]. [employer] is a website that allows you to securely view your medical information including discharge summary, medications and follow-up visits. ??You can alsosend a secure electronic message to your doctor???s office to request appointments, renew medications or just ask a question. You can enroll at [email or web address] or register during your next office visit. Disclaimer:?? The information provided is of a general nature and is intended to be used in conjunction with the recommendations and advice of your health care practitioner. ??Every effort has been made to ensure that the information provided is accurate and complete at the time it is provided to you however, as your needs change, or, as new ??information becomes available, different or additional instructions may be required. If you have questions, please consult with your primary care provider or pharmacist, as appropriate. ??This information is not intended to serve as substitution for assessment and evaluation by a qualified health care provider. If you do not have a primary care provider, you may find a [facility] provider by calling [facility] [employer] [facility] at [phone]. For information about the plan of care including goals and instructions for your diagnosis, please see the patient education orders section of this document. Patient Education Materials?? The content of this educational material or handout may have been modified, supplemented, or adapted from its original content and format to support your individualized medical care. Patient Care team information Care Team Personnel Name: Sasha Queen RN Position: [facility] RN Member Role: Primary Care Nurse Name: Charleen Neri RN Position: [facility] RN Member Role: Primary Care Nurse Name: Min Mckenzie MD Position: [facility] Physician - Primary Care Member Role: PCP Address: Address: [address] [place] [address]- [place] Name: Vianey Gonzales NP Position: [facility] Associate Professional Member Role: Primary Care Nurse Address: Address: [address] [place] [address] Trauma [place] [address]- [place] Name: Felecia Villegas LPN Position: [facility] RN Member Role: Primary Care Nurse Name: Alicia Croft RN Position: [facility] RN Member Role: Primary Care Nurse Name: Luisa Mitchell RN Position: [facility] RN Member Role: Primary Care Nurse Name: Nirav Nicholson RN Position: [facility] RN Member Role: Primary Care Nurse Name: Mara Miranda RN Position: [facility] RN Member Role: Primary Care Nurse Name: Mara Daly RN Position: [facility] ED RN W/OE and Tasks Member Role: Primary Care Nurse Name: Emy Balderas LPN Position: [facility] RN Member Role: Primary Care Nurse Care Team Related Persons Name: MIGUELINATACOS Rogel Address: [address] [address]
--- OUTSIDE RECORDS SUMMARY | 2024-01-05 09:59 | XMS_ITS | Continuity of Care Document ---
Author Organization [facility] Aki lt Address [address] [place] [address]- Care Team Providers Care Real Estate Management Specialist Name Role Phone Min Mckenzie MD Primary Care Physician Encounter [facility] Date(s): 03/10/23 - 03/17/23 [facility] Jorge Alanley Adult [address] [place] [address]- Attending Physician: Min Mckenzie MD Allergies, Adverse [...] 08/13/09 Recorded Hepatitis A Vaccine (oldterm) 8 3/10/08 Given Hepatitis A Vaccine (oldterm) 02/02/07 Given tetanus-diphtheria toxoids (Td) 02/02/07 Given 1Location History: [facility] 2Location History: [facility] 3Location History: [facility] 4Result Comment: [id number] 5Location History: [facility] 6Location History: [...] tablet, 3 Refills, Maintenance, 02/04/23 9:18:00 EDT, [facility] #[id number], 175.3, cm, 02/04/23 8:41:00 EDT, Height Start Date: 02/04/23 Status: Ordered erythromycin 0.5% ophthalmic ointment 0.5 inches, Eyes, Both, 4 times a day, # 4 Gm, 0 Refills, Maintenance, 10/22/22 10:20:00 EDT, OphthOintment, [facility] #[id number], Partial fill upon patient request if the [...] 02/04/23 9:18:00 EDT, Route to Pharmacy Electronically, [facility] #[id number], 175.3, cm, 02/04/23 8:41:00 EDT, Height Start Date: 02/04/23 Status: Ordered losartan 50 mg oral tablet 50 mg, 1, tablet, By Mouth, Daily, # 90 tablet, Refills 3, Tot. Refills 3, Maintenance, 02/04/23 9:19:00 EDT, Route to Pharmacy Electronically, [facility] #[id number], Partial fill upon patient request if the [...] tablet, 3 Refills, Maintenance, 02/04/23 9:18:00 EDT, [facility] #[id number], 175.3, cm, 02/04/23 8:41:00 EDT, Height Start [...] deficiency Confirmed Active Concentration deficit Confirmed Active Gallstone pancreatitis Confirmed Active GERD (gastroesophageal reflux disease) Confirmed Active Hemoptysis Confirmed Active Hemorrhoids 3 Confirmed Active S/P cholecystectomy Confirmed Active History of rectal cancer Confirmed Active History of myocardial infarction Confirmed Active Hyperlipidemia Confirmed Active Hypertension Confirmed Active Arthralgia Confirmed Active Nephrolithiasis Confirmed Active Depression, major, in remission Confirmed Active Hypogonadism male Confirmed Active Metatarsalgia of both feet Confirmed Active WILIAM on CPAP Confirmed Active Plantar fasciitis, left Confirmed Active Sleep apnea Confirmed Active 1STAGE 2 angioplasty with atherectomy. 2004 angioplasty with stent 3WITH BLEEDING Vital Signs Most recent to oldest [Reference Range]: 1 Height 175 cm (03/10/23 3:42 PM) Weight 91.6 kg (03/10/23 3:42 PM) Oxygen Saturation [94-100 %] 97 % (03/10/23 3:42 PM) Pulse Rate [55-90 bpm] 103 bpm *H* (03/10/23 3:42 PM) Body Mass Index [18.5-24.99 kg/m2] 29.91 kg/m2 *H* (03/10/23 3:42 PM) Blood Pressure [90-138/55-84 mm Hg] 124/ 70mm Hg (03/10/23 3:42 PM) Mode of Delivery (Oxygen) Room air (03/10/23 3:42 PM) Blood pressure sites Arm, left (03/10/23 3:42 PM) Weight Obtained Via Standing scale (03/10/23 3:42 PM) Social History Social History Type Response Smoking Status Never smoker entered on: 07/12/14 Sex Patient Care team information Care Team Personnel Name: Sasha Queen RN Position: S RN Member Role: Primary Care Nurse Name: Charleen Neri RN Position: S RN Member Role: Primary Care Nurse Name: Min Mckenzie MD Position: S Physician - Primary Care Member Role: PCP Address: Address: [address] [facility] [place] [address]- [place] Name: Vianey Gonzales NP Position: [facility] Associate Professional Member Role: Primary Care Nurse Address: Address: [address] [place] [address] [facility] [place] [address]- [place] Name: Felecia Villegas LPN Position: S RN Member Role: Primary Care Nurse Name: Geovanna Kumari RN Position: S RN Member Role: Primary Care Nurse Name: Tali Paul RN Position: [facility] RN Member Role: Primary Care Nurse Name: Alicia Croft RN Position: [facility] RN Member Role: Primary Care Nurse Name: Luisa Mitchell RN Position: [facility] RN Member Role: Primary Care Nurse Name: Nirav Nicholson RN Position: [facility] RN Member Role: Primary Care Nurse Name: Mara Miranda RN Position: [facility] RN Member Role: Primary Care Nurse Name: Mara Daly RN Position: [facility] ED RN W/OE and Tasks Member Role: Primary Care Nurse Name: Emy Balderas LPN Position: [facility] RN Member Role: Primary Care Nurse Care Team Related Persons Name: TACOS VASQUEZ Address: home [address] [place] [id number]
--- OUTSIDE RECORDS SUMMARY | 2024-01-05 09:59 | XMS_ITS | Continuity of Care Document ---
Author Organization [facility] ter Address [address] [place] [id number]- Care Team Providers Care Film Printer Name Role Phone Min Mckenzie MD Primary Care Physician En[place] [facility] [place](s): 02/07/23 - 02/18/[address] [address]- Encounter Diagnosis Pancreatitis(Final) - 02/07/23 Abdominal pain(Final) - 02/07/23 Nausea and vomiting(Final) - 02/07/23 Constipation(Final) - 02/07/23 Discharge Disposition: A-D/C Home Attending Physician: Prateek Kenyon MD Admitting Physician: Nirav Cummins DO Referring Physician: Not on Staff, Referring MD Allergies, Adverse Reactions, Alerts Substance Reaction [...] 3Location History: [facility] 4Result Comment: [id number] 5Location History: [facility] 6Location History: [...] tablet, 3 Refills, Maintenance, 02/04/23 9:18:00 EDT, [facility] #[id number], 175.3, cm, 02/04/23 8:41:00 EDT, Height Start Date: 02/04/23 Status: Ordered docusate-senna 50 mg-8.6 mg oral capsule 1 capsule, By Mouth, 2 times a day, for 3 days, # 6 capsule, 0 Refills, Acute 02/21/23 13:24:00 EDT, 02/18/23 13:24:00 EDT, Capsule, [facility], Partial fill upon patient request if theprescription is for a schedule II opioid drug., 1 c... Start Date: 02/18/23 Stop Date: 02/21/23 Status: Ordered erythromycin 0.5% ophthalmic ointment 0.5 inches, Eyes, Both, 4 times a day, # 4 Gm, 0 Refills, Maintenance, 10/22/22 10:20:00 EDT, OphthOintment, [facility] #[id number], Partial fill upon patient request if the prescription is fora schedule II opioid drug., 0.5 inches Eyes, Both 4... Start Date: 10/22/22 Status: Ordered Fish Oil 1200 mg oral capsule 1 capsule = 1,200 mg, By Mouth, Daily, 0 Refills, Maintenance, 04/13/14 12:24:12 Start Date: 04/13/14 Status: Ordered gabapentin 300 mg oral capsule 300 mg, Capsule, By Mouth, 02/18/23 9:00:00 EDT Start Date: 02/18/23 Stop Date: 02/18/23 Status: Completed gemfibrozil 600 mg oral tablet 1, tablet, By Mouth, 2 times a day, # 180 tablet, Refills 3, Tot. Refills 3, Maintenance, 02/04/23 9:18:00 EDT, Route to Pharmacy Electronically, [facility] #[id number], 175.3, cm, 02/04/23 8:41:00 EDT, Height Start Date: 02/04/23 Status: Ordered losartan 50 mg oral tablet 50 mg, 1, tablet, By Mouth, Daily, # 90 tablet, Refills 3, Tot. Refills 3, Maintenance, 02/04/23 9:19:00 EDT, Route to Pharmacy Electronically, [facility] #[id number], Partial fill upon patient request if the prescription is for a schedule II opi... Start Date: 02/04/23 Stop Date: 01/30/24 Status: Ordered losartan 50 mg oral tablet 50 mg, Tablet, By Mouth, 02/18/23 9:00:00 EDT Start Date: 02/18/23 Stop Date: 02/18/23 Status: Completed Magnesium Carbonate = 54 mg, By Mouth, Daily, 0 Refills, Maintenance, 10/16/22 14:44:00 EDT, Partial fill upon patient request if the prescription is for a schedule II opioid drug. Start Date: 10/16/22 Status: Ordered Metoprolol XL Tablet 50 mg, XL Tablet, By Mouth, 02/18/23 9:00:00 EDT Start Date: 02/18/23 Stop Date: 02/18/23 Status: Completed Metoprolol Succinate ER 50 mg oral tablet, extended release 1 tablet, By Mouth, Daily, # 90 tablet, 3 Refills, Maintenance, 02/04/23 9:18:00 EDT, [facility] #[id number], 175.3, cm, 02/04/23 8:41:00 EDT, Height Start [...] 11:14:25 EDT Start Date: 11/23/17 Status: Ordered oxyCODONE 5 mg oral tablet 5 mg, By Mouth, Every 4 hours, PRN, for 3 days, # 12 tablet, Refills 0, Tot. Refills 0, Acute 02/21/23 13:24:00 EDT, Pain , Moderate, 02/18/23 13:24:00 EDT, Route to Pharmacy Electronically, [facility], Partial fill upon patient request... Start Date: 02/18/23 Stop Date: 02/21/23 Status: Ordered pancreatin oral tablet 2 tablet, [...] atherectomy. 2004 angioplasty with stent 3WITH BLEEDING Procedures Procedure Date Related Diagnosis Body Site Status Cholecystectomy Completed Partial colectomy Complet ed Results Radiology Reports * Exam Date Time Procedure Performing Provider Status 02/17/23 12:[address] Abd/Pelvis W/ IV + Oral Contrast Summer Gerard; Auth (Verified) Notes: (CT Abd/Pelvis W/ IV + Oral Contrast) Reason For Exam: RUQ pain;Postop RESULT: CT Abd/Pelvis W/ IV + Oral Contrast CT Abd/Pelvis W/ IV + Oral Contrast Reason: Postop; RUQ pain; Clinical Question(s): Other:; s p lap obdulio c b cystic duct leak s p ERCPstent - eval for RUQ collection; Order Comment: TECHNIQUE: Spiral CT through the abdomen and pelvis with IV contrast formatted in 3 planes. 100 cc of Omnipaque 300 was administered intravenously. This study was performed with oral contrast. Weight-based protocol using automatic tube modulation was used to optimize exposure parameters. COMPARISON: CT abdomen and pelvis 02/07/2023. FINDINGS: Senior Quality Assurance Analyst View Findings, Lines and Tubes: Percutaneous drain is noted in the right upper quadrant, extending into the gallbladder fossa Visualized Chest: . There is near complete atelectasis/collapse of the right lower lobe and the right middle lobe, and bandlike atelectasis in the left lower lobe. No pleural effusion. The heart is normal in size. No pericardial effusion. Coronary artery calcifications are present. Diaphragm: Normal. Liver: Normal. Gallbladder: Absent consistent with prior cholecystectomy. Drain is present in the gallbladder fossa, with trace adjacent gas. There is stranding and small volume fluid attenuation surrounding the drain in the gallbladder fossa, with fluid measuring approximately 2.2 x 1.1 cm in cross-section and approximately 4.7 cm in superior inferior extent adjacent to the drain. There is no well- defined enhancing rim. Bile ducts: Common bile duct stent. Inferior common bile duct. Small amount of pneumobilia and lefthepatic lobe. No biliary ductal dilation. Spleen: Normal. Pancreas: Normal. Adrenal glands: Normal. Kidneys and ureters: No hydronephrosis, stones, or suspicious masses. Simple appearing renal cyst measuring up to 2.4 cm in the left upper renal pole, and hypodensities that are too small to characterize are noted, requiring no dedicated follow up. Bladder: Normal. Reproductive organs: Unremarkable. Stomach, small bowel, and large bowel: Normal in course and caliber. No obstruction or inflammatorychange. Moderate retained stool in the colon. Unremarkable surgical sutures in the rectum. Appendix: Normal. Peritoneum and retroperitoneum: Stranding, fluid, gas in the gallbladder fossa as described above. No ascites or pneumoperitoneum in the remainder of the abdomen. No omental or mesenteric lesions. Lymph nodes: No enlarged lymph nodes. Blood vessels: Mild vascular calcifications but no aneurysm. No evidence of venous thrombosis. Abdominal and pelvic wall: Bilateral fat-containing inguinal hernias are present, right greater than left. Surgical scarring in the right lower quadrant. Bones: No acute abnormality. Scattered degenerative changes of the spine. IMPRESSION: Drain in the gallbladder fossa, with small volume fluid and gas surrounding the drain. No well-defined enhancing rim. WSN: [id number] Ordering Physician: Desire Garcia Dictated By: Viki Boston MD Dictated Date/Time: 02/17/23 1:33 pm Reviewed By: Viki Boston MD Signed By: Viki Boston MD Signed Date/Time: 02/17/23 1:33 pm Transcribed By: TONG Transcribed Date/Time: 02/17/23 1:09 pm * Exam Date Time Procedure Performing Provider Status 02/13/23 4:58 PM ERCP Both Ducts Cody Carlos Mullen (Verified) Notes: (ERCP Both Ducts) Reason For Exam: Pancreatitis RESULT: ERCP Both Ducts ERCP Both Ducts INDICATION: Reason: Pancreatitis COMPARISONS: None TECHNIQUE: Fluoroscopy support was provided. There was no radiologist in attendance. FLUOROSCOPY TIME: 2 minutes 42.9 seconds EXPOSURE: 23.168 Gycm2 (Dose Area Product) TECHNOLOGIST TIME: 1 hour 30 minutes FINDINGS: Intraprocedural fluoroscopy demonstrates JEREMI drain in place. ERCP performed with placement of commonbile duct stent. Please refer to procedural report for details. IMPRESSION: See above. WSN: [id number] Ordering Physician: Sina Carlos Dictated By: Bi Garzon MD Dictated Date/Time: 02/14/23 6:10 am Reviewed By: Bi Garzon MD Signed By: Bi Garzon MD Signed Date/Time: 02/14/23 6:10 am Transcribed By: TONG Transcribed Date/Time: 02/14/23 6:07 am * Exam Date Time Procedure Performing Provider Status 02/07/23 7:00 PM Chest 2 Views Frontal and Lat Rashida Shetty; Auth (Verified) Notes: (Chest 2 Views Frontal and Lat) Reason For Exam: Shortness of Breath RESULT: Chest 2 Views Frontal and Lat Chest 2 Views Frontal and Lat Reason: Shortness of Breath; Clinical Question(s): Pneumonia COMPARISON: Chest x-rays dated 10/16/2022 and 03/07/2005. FINDINGS: LINES AND TUBES: None. LUNGS AND PLEURA: Markedly low lung volumes with bibasilar densities which may reflect atelectasis or pneumonia. There is blunting of the posterior costophrenic angle suggesting trace effusions. No pneumothorax. HEART, MEDIASTINUM AND DANIEL: Heart is normal in size. Normal mediastinal and hilar contour. BONES AND SOFT TISSUES: No acute abnormality. IMPRESSION: Markedly low lung volumes with bibasilar densities which may reflect atelectasis or pneumonia. Blunting of the posterior costophrenic angles, suggesting trace effusions. WSN: [id number] Ordering Physician: Fidelina Motta Dictated By: Marisela Ribeiro MD Dictated Date/Time: 02/07/23 7:13 pm Reviewed By: Marisela Ribeiro MD Signed By: Marisela Ribeiro MD Signed Date/Time: 02/07/23 7:13 pm Transcribed By: TONG Transcribed Date/Time: 02/07/23 7:12 pm * Exam Date Time Procedure Performing Provider Status 02/07/23 8:[address] Abd/Pelvis W/ IV Contrast Only Mate o , Desire; Auth (Verified) Notes: (CT Abd/Pelvis W/ IV Contrast Only) Reason For Exam: LLQ abdominal pain;Other: RESULT: CT Abd/Pelvis W/ IV Contrast Only CT Abd/Pelvis W/ IV Contrast Only HX OF PRESENT ILLNESS: abd pain and no BM x 1 wk; Reason: LLQ abdominal pain; Clinical Question(s):Diverticulitis; TECHNIQUE: Spiral CT through the abdomen and pelvis with IV contrast formatted in 3 planes. 100 cc of Omnipaque 300 was administered intravenously. This study was performed without oral contrast. Weight-based protocol using automatic tube modulation was used to optimize exposure parameters. CTDIvol Body: 15.00 mGy, DLP Body: 990 mGy*cm. COMPARISON: Multiple priors abdominal exams, most recent from 08/16/2019. Lung base images from chest CT 11/05/2022 reviewed. MRI abdomen 08/29/2019 reviewed. FINDINGS: Senior Quality Assurance Analyst View Findings, Lines and Tubes: None. Visualized Chest: Dense opacities in the bilateral lung bases with small air bronchograms, which may reflect multifocal pneumonia, new since 11/05/2022. There is overlying bibasilar atelectasis. Unchanged 1.8 cm left lower lobe pulmonary bleb.. No pleural effusion. The heart is normal in size. No pericardial effusion. Moderate coronary artery calcifications, probably along the LAD and circumflex. Diaphragm: Normal. Liver: Hepatic steatosis Gallbladder: Cholelithiasis without any evidence of acute cholecystitis. Bile ducts: No biliary ductal dilation. Spleen: Normal. Pancreas: There is diffuse mesenteric fat stranding and edema surrounding the pancreatic tail and body, with slightly edematous pancreatic parenchyma. Normal pancreatic enhancement. Mildly prominent peripancreatic lymph nodes in the mid central mesentery measuring up to 0.5 cm, likely reactive. Adrenal glands: Normal., Kidneys and ureters: No hydronephrosis, stones, or suspicious masses. Persistent right interpolar hypodense lesion measuring up to 1.1 cm and 20-25 Hounsfield units, unchanged in size from 2020 when it measured 57 Hounsfield units, likely representing a mildly complicated/hemorrhagic cyst. It measured 1.0 cm on 08/06/2018 is not clearly seen in 2014. Simple appearing renal cysts and hypodensities that are too small to characterize are noted, requiring no dedicated follow up. Bladder: Normal. Reproductive organs: Mild prostatomegaly. Unchanged vasectomy clips. Stomach, small bowel, and large bowel: Small hiatal hernia. Stomach is underdistended. Normal caliber small bowel loops. Small bowel anastomosis in the right hemiabdomen appears widely patent. Moderate colonic stool retention without evidence of acute obstruction. Few scattered colonic diverticuli without any evidence of acute diverticulitis. Rectal anastomosis. Appendix: Not seen, but no evidence of appendicitis. Peritoneum and retroperitoneum: No ascites or pneumoperitoneum. No omental lesions. Moderate mesenteric edema and stranding surrounding the pancreatic body and tail, as described above. Lymph nodes: No enlarged lymph nodes. Mildly prominent peripancreatic lymph nodes. Blood vessels: Mild vascular calcifications but no aneurysm. No evidence of venous thrombosis. Abdominal and pelvic wall: Small fat-containing bilateral inguinal hernias. Mild left gynecomastia. Bones: No acute abnormality. Moderate degenerative changes of the spine, most prominent at the L5-S1 level, with disc space narrowing, end plate sclerosis and marginal osteophytes. IMPRESSION: 1. Diffuse peripancreatic mesenteric edema and fat stranding, with a slightly edematous pancreatic parenchyma. Findings suggest early pancreatitis. 2. Cholelithiasis without any evidence of acute cholecystitis. 3. Dense opacities in the bilateral lung bases with tiny air bronchograms, which may reflect multifocal pneumonia and/or atelectasis. 4. 1 cm cortical hypodensity in the right kidney is less dense than on prior studies and was betterassessed on MRI 08/29/2019, likely hemorrhagic cyst. I have personally reviewed the images and I agree with this report. WSN: [id number] Ordering Physician: Bridgett Elizabeth Dictated By: Yaquelin Hickey MD Dictated Date/Time: 02/07/23 10:01 a Reviewed By: Robbi Friend MD Signed By: Robbi Friend MD Signed Date/Time: 02/07/23 10:06 am Transcribed By: TONG Transcribed Date/Time: 02/07/23 9:35 am Vital Signs Most recent to oldest [Reference Range]: 1 2 3 Height 175 cm (02/18/23 11:36 AM) 175 cm (02/18/23 7:51 AM) 175 cm (02/17/23 3:42 PM) Weight 99.4 kg (02/13/23 3:15 PM) 99.4 kg (02/12/23 10:54 PM) 99.4 kg (02/11/23 4:15 PM) Oxygen Saturation [94-100 %] 98 % (02/18/23 11:36 AM) 98 % (02/18/23 7:51 AM) 97 % (02/18/23 3:30 AM) Pulse Rate [55-90 bpm] 71 bpm (02/18/23 11:36 AM) 66 bpm (02/18/23 8:51 AM) 66 bpm (02/18/23 7:51 AM) Body Mass Index [18.5-24.99 kg/m2] 32.46 kg/m2 *>HHI* (02/13/23 3:15 PM) 32.46 kg/m2 *>HHI* (02/12/23 10:54 PM) 32.46 kg/m2 *>HHI* (02/11/23 4:15 PM) Blood Pressure [90-138/55-84 mm Hg] 128/70mm Hg (02/18/23 11:36 AM) 132/77mm Hg (02/18/23 8:51 AM) 132/77mm Hg (02/18/23 8:51 AM) Respiratory Rate [16-30 br/min] 17 br/min (02/18/23 11:36 AM) 18 br/min (02/18/23 8:51 AM) 18 br/min (02/18/23 7:51 AM) Temperature [96.8-100.4 DegF] 98.3 DegF (02/18/23 11:36 AM) 98.6 DegF (02/18/23 7:51 AM) 98.3 DegF (02/18/23 3:30 AM) Liters per Minute 5 L/min (02/13/23 5:00 PM) 5 L/min (02/13/23 4:45 PM) 2 L/min (02/13/23 3:15 PM) Mode of Delivery (Oxygen) Room air (02/18/23 11:36 AM) Room air (02/18/23 7:51 AM) Room air (02/17/23 8:12 PM) Blood pressure sites Arm, right (02/18/23 11:36 AM) Arm, right (02/18/23 7:51 AM) Arm, right (02/18/23 3:30 AM) Temperature Route Oral (02/18/23 11:36 AM) Oral (02/18/23 7:51 AM) Axillary (02/18/23 3:30 AM) Dry Weight 99.4 kg (02/07/23 4:10 PM) 99.5 kg (02/07/23 3:49 PM) 99.5 kg (02/07/23 2:10 PM) Dry Weight Obtained Via Patient/family stated (02/06/23 10:12 PM) Social History Social History Type Response Smoking Status Never smoker entered on: 07/12/14 Sex Admission evaluation note * Kalia DELGADO, Fidelina Husain: PERFORM Event Display: Admission Note Authored Date: Patient: ??WOOD RIOS ? Age:??67 Years?Sex:??Male?:??1955?? Chief Complaint/Reason for Consultation Worsening abdominal pain x2 weeks History of Present Illness Mr. Rios is a 67-year-old male with past medical history of rectal cancer,??GERD, CAD, hypertension, hyperlipidemia, testosterone deficiency, BPH, WILIAM on CPAP, CKD,??who presented to the emergency department complaining of abdominal pain.?? He reported that the abdominal pain started 2 weeks ago, and has been worsening. ??It is located in the center of his abdomen.?? It is worse after eating.?? He also reports 5 days of constipation, which is unusual for him.?? He additionally complains of lightheadedness, sore throat, shortness of breath, and nausea.?? On arrival in the emergency department, vital signs are significant for hypertension with blood pressure 166/90.?? Laboratory studies sh owed lipase 4027, alkaline phosphatase 164, AST 209, ALT 162, bilirubin 2.8.?? Of note, he had previously had his LFTs checked 3 days ago and they were normal at that time.?? Lipid panel and triglycerides were normal.?? CT of the abdomen pelvis showed diffuse peripancreatic mesenteric edema and fatstranding, with a slightly edematous pancreatic parenchyma, suggesting early pancreatitis.?? They also showed cholelithiasis without cholecystitis, dense opacities in the bilateral lung bases which may reflect multifocal pneumonia, and a right kidney cortical hypodensity.?? He was given IV fluids and morphine, and decision was made to admit for treatment of acute pancreatitis. Review of Systems General: Endorses lightheadedness HEENT:?? Denies headache, runny nose,??endorses sore throat Cardiac:?? Denies chest pain or palpitations Respiratory:??Endorses SOB,??denies cough Abdomen:??Endorses nausea,??abdominal pain, and constipation, denies vomiting??or diarrhea :?? Denies hematuria or dysuria Skin:?? Denies rashes or wounds Objective Measurements?? Height: 175 cm (02/07/23) Weight: 99.4 kg (02/07/23) Dry Weight: 99.4 kg (02/07/23) Body Mass Index:??32.46 kg/m2??Critical (02/07/23) ? Vital Signs?? Temperature: 98.7 DegF (02/07/23 16:20:00) Temperature Route: Oral (02/07/23 16:20:00) Pulse Rate: 87 bpm (02/07/23 16:20:00) Respiratory Rate: 18 br/min (02/07/23 18:02:00) Systolic Blood Pressure:??151 mm Hg??High (02/07/23 16:20:00) Diastolic Blood Pressure: 84 mm Hg (02/07/23 16:20:00) Blood pressure sites: Arm, left (02/07/23 16:20:00) Mean Arterial Pressure: 106 mm Hg (02/07/23 16:20:00) Pulse Pressure: 67 mm Hg (02/07/23 16:20:00) Oxygen Saturation: 95 % (02/07/23 18:00:00) Liters per Minute: 2 L/min (02/07/23 18:00:00) Mode of Delivery (Oxygen): Nasal cannula (02/07/23 18:00:00) Early Warning Score: 5 (02/07/23 18:09:29) ? Intake/Output? No Data Available ?? Precautions No Precautions documented.? Physical Exam Physical Exam: General: No apparent distress, appears stated age, awake, alert, cooperative with exam Head/Neck/Throat: Normocephalic, atraumatic, moist mucous membranes Eyes: Sclera anicteric, EOMI Thorax: Clear to auscultation bilaterally, no respiratory distress Cardiovascular: Regular rate and rhythm, no murmurs rubs or gallops, no peripheral edema Abdomen: Soft, diffusely tender to palpation, non-distended, normoactive bowel sounds Musculoskeletal: No gross bony deformities Skin: No rashes or wounds noted on exposed skin Neurologic: Alert and oriented x3, no focal neurological deficits, no facial droop Psychiatric: Normal affect Assessment/Plan Diagnoses Abdominal pain ??(R10.9) Nausea and vomiting ??(R11.2) Pancreatitis ??(K85.90) Pneumonia ??(J18.9) 1. ??Acute pancreatitis ??(K85.90) 2. ??Constipation ??(K59.00) 3. ??Abnormal CT scan, lung ??(R91.8) 4. ??CAD (coronary artery disease) ??(I25.10) 5. ??Hypertension ??(I10) 6. ??Hyperlipidemia ??(E78.5) 7. ??History of rectal cancer ??(Z85.048) ?? Assessment:??67-year-old male with past medical history of rectal cancer, GERD, CAD, hypertension, hyperlipidemia, testosterone deficiency, BPH, WILIAM on CPAP, CKD, who presented to the emergency department complaining of abdominal pain, found to have acute pancreatitis ?? Acute pancreatitis (K85.90):??Patient with acute pancreatitis??by history, labs, and imaging His triglycerides are normal He does have??cholelithiasis??on imaging, possibly this is??the cause of his pancreatitis, though there does not appear to be??any cholecystitis??at this time -IV fluids, LR 150 cc/h -N.p.o.??except for sips of water/ice chips, meds -IV morphine as needed for pain -Zofran as needed for nausea -Have held??majority of home meds at this time, resume when tolerating p.o. Notably, his sister does have a history of??pancreatic cancer,??have ordered CA 19-9 Interestingly??patient is supposed to take pancreatic enzymes at home??normally, which he??has not been doing, unclear why??he was prescribed this medication, possibly related to his??colon??cancer history ?? Constipation (K59.00):??Possibly related to poor p.o. intake -Bowel regimen No evidence of??obstruction on imaging ?? Pneumonia (J18.9):? Abnormal CT scan, lung (R91.8):??Abdomen CT with visualized chest showing dense opacities in bilateral lung bases which may reflect multifocal pneumonia, new since October Patient has been complaining of hemoptysis and is to see an outpatient boring machine feeder He denies cough but does report some mild shortness of breath, and his SPO2 was 90% on room air He does not have a white blood cell count elevation today, though it has increased from 6.0 on 02/04, 10.9 on 02/07: Possibly will be elevated tomorrow -We will order procalcitonin -We will order IV ceftriaxone and azithromycin for presumed pneumonia -Chest x-ray pending ?? CAD (coronary artery disease) (I25.10):??Continue aspirin 81 mg daily Hold atorvastatin due to elevated LFTs ?? Hypertension (I10):??Continue losartan 50 mg daily, metoprolol 50 mg daily ?? History of rectal cancer (Z85.048):??Status post resection, colostomy creating and subsequent reversal ?? VTE Prophylaxis:??Intermittent pneumatic compression ?VTE Prophylaxis Assessment:??VTE Prophylaxis Ordered ?? Code Status:??Full code, confirmed with patient ?Order Code Status:??Code Status Ordered ?? Diet:??NPO ?? I personally spent a total of??80 minutes reviewing the chart, notes, images, and labs, speakingwith nurses, examining and interviewing the patient, placing orders, reconciling medications, and documenting in the medical record. ? Histories Allergies Allergies ?(Active and Proposed Allergies Only) Contrast Dye? (Severity: Unknown severity, Onset: 09/19/2004) ?Reactions: hives ?Comments: IODINATED ? Past Medical History/Problem List Active Problems??(23) Arthralgia Benign prostatic hyperplasia CAD (coronary artery disease) Chronic kidney disease (CKD) Concentration deficit Constipation, chronic Depression, major, in remission GERD (gastroesophageal reflux disease) Hemoptysis Hemorrhoids History of myocardial infarction History of rectal cancer Hyperlipidemia Hypertension Hypogonadism male Leg cramps Metatarsalgia of both feet Nephrolithiasis Obese class I WILIAM on CPAP Plantar fasciitis, left Sleep apnea Testosterone deficiency ? Past Surgical History Colonoscopy: 12/09/16 Sigmoidoscopy: 02/20/15 CT of abdomen and pelvis: 03/15/14 Colonoscopy: 11/06/07 Ultrasound: 11/26/06 Endoscopy of GI tract: 10/01/06 Partial colectomy Angioplasty balloon catheter Lithotripsy ? Social History Alcohol Details:??Use: Current. ??Frequency: 1-2 times per month. ??Type: Beer. Employment/School Details:??Status: Disabled. 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 Exercise Details:??Self assessment: Fair condition. Home/Environment Details:??Living situation: Home/Independent. ??Lives with: Children, Spouse. ??Other: - safe; 3 children; 2 dogs. Nutrition/Health Details:??Diet: Regular. Sexual Details:??Sexual orientation: Heterosexual. ??Gender identity: Male. Substance Abuse Details:??Use: Never. Tobacco Details:??Never smoker Electronic Cigarette/Vaping Details:??Electronic Cigarette Use: Never. ? Family History Mother (piotr, ): CAD - Coronary artery disease; Hyperlipidemia; Hypertension Brother: CAD - Coronary artery disease; Hyperlipidemia; Hypertension Sister (Alyssa, ): Pancreatic cancer ? Medications Home Medications Aspirin?81?Milligram?By Mouth?Daily Atorvastatin (atorvastatin 40 mg oral tablet)?1?tab(s)?By Mouth?Daily at bedtime Erythromycin Ophthalmic (erythromycin 0.5% ophthalmic ointment)?0.5?Inch?Eyes, Both?4 times a day Gemfibrozil (gemfibrozil 600 mg oral tablet)?1?tablet?By Mouth?2 times a day Hydrochlorothiazide (hydroCHLOROthiazide 12.5 mg oral capsule)?1?capsule?By Mouth?Daily Losartan (losartan 50 mg oral tablet)?50?Milligram?1?tablet?By Mouth?Daily?for90?Days Magnesium Carbonate?54?Milligram?By Mouth?Daily Metoprolol (Metoprolol Succinate ER 50 mg oral tablet, extended release)?1?tab(s)?By Mouth?Daily Nitroglycerin (nitroglycerin 0.4 mg sublingual tablet)?1?tab(s)?0.4?Milligram?Sublingual?Every 5 minutes?as needed?Chest Pain?not to exceed 3 doses/15 min--if pain persists, seek medical attentionCall 911 [place]-3 Polyunsaturated Fatty Acids (Fish Oil 1200 mg oral capsule)?1?capsule?1,200?Milligram?By Mouth?Daily Pancreatin (pancreatin oral tablet)?2?tab(s)?By Mouth?6 times a day?Take 2 tables before every meal and snack Pantoprazole (pantoprazole 40 mg oral delayed release tablet)?1?tab(s)?By Mouth?Daily Polyethylene Glycol 3350 (MiraLax oral powder for reconstitution)?17?gram?By Mouth?Daily [place]?By Mouth Testosterone (AndroGel 40.5 mg (1.62%) transdermal gel)?2?pack/packet?Topically?Daily in AM ? Inpatient Medications Medications (16) Active SCHEDULED: (5) Azithromycin 500 mg IVPB (Zithromax IV) ??500 mg, IVPB, Every 24 hours Ceftriaxone 1 Gm Inj (Ceftriaxone Inj) ??1 Gm, IVPB, Every 24 hours Losartan 50 mg Tablet (losartan 50 mg oral tablet) ??50 mg, By Mouth, Daily Metoprolol 50 mg XL Tablet (Metoprolol Succinate ER 50 mg oral tablet, extended release) ??50 mg, By Mouth, Daily NaCl 0.9% Flush 3ml (NaCL 0.9% Flush) ??3 mL, IV Push, Every 8 hours CONTINUOUS: (1) Lactated Ringers (1000 mL) Cont IV 1,000 mL (LR 1,000 mL) ??1,000 mL, IV Infusion, 150 mL/hr PRN: (10) Bisacodyl 5 mg EC Tablet (Dulcolax Tablet) ??5 mg, By Mouth, Daily Melatonin 3 mg Tablet (Melatonin Tablet) ??3 mg, By Mouth, Daily at bedtime MorPHINE 2 mg Inj Syringe (MorPHINE Inj) ??2 mg, IV Push Slowly, Every 4 hours MorPHINE 4 mg Inj Syringe (MorPHINE Inj) ??4 mg, IV Push Slowly, Every 4 hours NaCl 0.9% Flush 3ml (NaCL 0.9% Flush) ??3 mL, IV Push, Every 8 hours nalOXONE ??400mcg/mL Inj (nalOXONE Inj) ??0.4 mg 1 mL, IV Push Slowly, Every 5 minutes Ondansetron 2mg/mL Inj (2mL Vial) (Zofran Inj) ??4 mg, IV Push, Every 6 hours Polyethylene Glycol 17 Gm Powder (MiraLax Powder) ??17 Gm 1 pack/packet, By Mouth, Daily Senna 8.6 mg / Docusate 50 mg tablet (Docusate/Senna Tablet) ??1 tablet, By Mouth, 2 times a day Simethicone 80 mg Chewable Tablet (Simethicone Tablet) ??80 mg, Chew, 3 times a day ? Results Recent Labs BLOOD COUNT & DIFF WBC 10.9 k/mm3 ()?? 02/07/2023 00:36 RBC 5.77 m/mm3 ()?? 02/07/2023 00:36 Hgb 17.8 Gm/dL (High)?? 02/07/2023 00:36 Hct 52.5 % (High)?? 02/07/2023 00:36 MCV 91.0 femtoliters ()?? 02/07/2023 00:36 MCH 30.8 pg ()?? 02/07/2023 00:36 MCHC 33.9 g/dL ()?? 02/07/2023 00:36 Platelet Count 184 k/mm3 ()?? 02/07/2023 00:36 RDW-SD 43.1 femtoliters ()?? 02/07/2023 00:36 MPV 9.2 femtoliters (Low)?? 02/07/2023 00:36 Nucleated RBC (Automated) 0.0 #/100 WBC'S ()?? 02/07/2023 00:36 Abs. NRBC 0.0 k/mm3 ()?? 02/07/2023 00:36 Abs. Neut 8.9 k/mm3 (High)?? 02/07/2023 00:36 Abs. Lymph 1.0 k/mm3 ()?? 02/07/2023 00:36 Abs. [place] 0.8 k/mm3 ()?? 02/07/2023 00:36 Abs. Eo 0.0 k/mm3 ()?? 02/07/2023 00:36 Abs. Baso 0.0 k/mm3 ()?? 02/07/2023 00:36 Neut % 81.8 % (High)?? 02/07/2023 00:36 Lymph % 9.5 % (Low)?? 02/07/2023 00:36 [place] % 7.4 % ()?? 02/07/2023 00:36 Eos % 0.3 % ()?? 02/07/2023 00:36 Baso % 0.4 % ()?? 02/07/2023 00:36 Imm Gran 0.6 % ()?? 02/07/2023 00:36 Abs. Imm Gran 0.1 k/mm3 ()?? 02/07/2023 00:36 ?? CHEM GENERAL Sodium 139 mmol/L ()?? 02/07/2023 00:36 Potassium 4.6 mmol/L ()?? 02/07/2023 00:36 Chloride 104 mmol/L ()?? 02/07/2023 00:36 Bicarbonate Level 25 mmol/L ()?? 02/07/2023 00:36 Anion Gap 10 ()?? 02/07/2023 00:36 Glucose Level 126 mg/dL (High)?? 02/07/2023 00:36 BUN 10 mg/dL ()?? 02/07/2023 00:36 Creatinine-Blood 0.9 mg/dL ()?? 02/07/2023 00:36 Estimated GFR Creatinine 96 ML/MIN/1.73 M2 ()?? 02/07/2023 00:36 Calcium 9.3 mg/dL ()?? 02/07/2023 00:36 Protein, Total 6.9 Gm/dL ()?? 02/07/2023 00:36 Albumin 4.7 Gm/dL ()?? 02/07/2023 00:36 AG Ratio 2.1 ()?? 02/07/2023 00:36 Alkaline Phosphatase 164 units/L (High)?? 02/07/2023 00:36 Lipase 4027 units/L (High)?? 02/07/2023 00:36 AST (SGOT) 209 units/L (High)?? 02/07/2023 00:36 ALT (SGPT) 162 units/L (High)?? 02/07/2023 00:36 Bilirubin, Total 2.8 mg/dL (High)?? 02/07/2023 00:36 Lactate 2.0 mmol/L ()?? 02/07/2023 00:36 ?? HEME OTHER Hold Blue Top SPECIMEN DISCARDED AFTER 4 HOURS. ()?? 02/07/2023 00:36 ?? UA/URINALYSIS Appear/Color, Urine DARK YELLOW ()?? 02/07/2023 00:47 Clarity CLEAR ()?? 02/07/2023 00:47 Specific [place], Urine 1.027 ()?? 02/07/2023 00:47 pH, Urine 6.0 ()?? 02/07/2023 00:47 Albumin, Urine TRACE (Abnormal)?? 02/07/2023 00:47 Glucose, Urine NEGATIVE ()?? 02/07/2023 00:47 Ketones, Urine NEGATIVE ()?? 02/07/2023 00:47 Bilirubin, Urine 1+ (Abnormal)?? 02/07/2023 00:47 Hemoglobin, Urine NEGATIVE ()?? 02/07/2023 00:47 Nitrite, Urine NEGATIVE ()?? 02/07/2023 00:47 Leukocyte, Urine NEGATIVE ()?? 02/07/2023 00:47 Urobilinogen 6 mg/dL (Abnormal)?? 02/07/2023 00:47 WBC's, Urine NONE SEEN /HPF ()?? 02/07/2023 00:47 RBC's, Urine NONE SEEN /HPF ()?? 02/07/2023 00:47 Squamous Epith 1 /HPF ()?? 02/07/2023 00:47 Amorphous Crystals MODERATE /HPF ()?? 02/07/2023 00:47 Mucus SLIGHT /LPF ()?? 02/07/2023 00:47 Culture Indication CULTURE NOT INDICATED ()?? 02/07/2023 00:47 ?? URINE OTHER Est Creatinine Clearance 81.56 mL/min ()?? 02/07/2023 02:14 ?? VIROLOGY COVID-19 by RT-PCR NEGATIVE ()?? 02/07/2023 11:33 ? Imaging(s) ?Chest 2 Views Frontal and Lat ?? 02/07/2023 19:00 ?CT Abd/Pelvis W/ IV Contrast Only ?? 02/07/2023 08:48??by Robbi Friend MD ?IMPRESSION: 1. Diffuse peripancreatic mesenteric edema and fat stranding, with a slightly edematous pancreatic parenchyma. Findings suggest early pancreatitis. 2. Cholelithiasis without any evidence of acute cholecystitis. 3. Dense opacities in the bilateral lung bases with tiny air bronchograms, which may reflect multifocal pneumonia and/or atelectasis. 4. 1 cm cortical hypodensity in the right kidney is less dense than on prior studies and was betterassessed on MRI 08/29/2019, likely hemorrhagic cyst. ? Microbiology(s) ?COVID-19 by RT-PCR ?? 02/07/2023 11:33 ? EKG study * Event Display: EKG Authored Date: * Event Display: EKG Authored Date: * Event Display: ECG 12-Lead Authored Date: Please click on pdf link to open report * Event Display: ECG 12-Lead Authored Date: Ventricular Rate: 86 BPM Atrial Rate: 86 BPM P-R Interval: 180 ms QRS Duration: 78 ms Q-T Interval: 390 ms QTC Calculation(Bazett): 466 ms P [place]: 36 degrees R [place]: 88 degrees T [place]: 54 degrees Normal sinus rhythm Nonspecific T wave abnormality Prolonged QT Abnormal ECG When compared with ECG of 06-FEB-2023 22:20, Nonspecific T wave abnormality, worse in Lateral leads QT has lengthened Confirmed by TIMMY LOCKHART MD ([id number]) on 02/13/2023 8:57:10 AM Corinne: TIMMY LOCKHART MD * Event Display: ECG 12-Lead Authored Date: Please click on pdf link to open report * Event Display: ECG 12-Lead Authored Date: Ventricular Rate: 82 BPM Atrial Rate: 82 BPM P-R Interval: 166 ms QRS Duration: 90 ms Q-T Interval: 352 ms QTC Calculation(Bazett): 411 ms P [place]: 40 degrees R [place]: 97 degrees T [place]: 29 degrees Normal sinus rhythm Rightward axis Cannot rule out Anterior infarct , age undetermined Abnormal ECG When compared with ECG of 13-APR-2014 12:56, No significant change was found Confirmed by ESME MAYNARD ([id number]) on 02/07/2023 8:05:12 AM Corinne: ESME MAYNARD Cardiology * Event Display: Cardiac Rhythm Strips Authored Date: * Event Display: Cardiac Rhythm Strips Authored Date: * Event Display: Cardiac Rhythm Strips Authored Date: Hospital Progress note * Geovanna Kumari RN: PERFORM, SIGN, VERIFY Event Display: Progress Note Hospital Authored Date: Patient: WOOD RIOS Age: 67 years Sex: Male : 1955 Associated Diagnoses: None Author: Quoc WINN, Geovanna Findings Narrative/Incidental Pt discahrged home with family, discharge instructions given.. * Mara Bravo MD: PERFORM Event Display: Progress Note Hospital Authored Date: [id number] Patient: ??WOOD RIOS ? Age:??67 Years?Sex:??Male?:??1955?? Subjective Patient was seen and evaluated at bedside during morning rounds. No acute events overnight. Patientstates his is coming to the hospital today to learn about drain management, then he is hopefulto go home. He denies pain, nausea, or vomiting. He has been able to tolerate a diet without issue.He has ambulated independently. He continues to have BM, pass flatus, and void. Denies fevers, chills, shortness of breath or chest pain. Overall doing well and eager to be discharged. Review of Systems 12 point ROS completed. Negative unless otherwise stated in HPI/subjective. Physical Exam Vitals & Measurements T:??98.3?F?? HR:??71??(Peripheral)?? RR:??17?? BP:??128/70?? SpO2:??98%?? HT:??175??cm?? WT:??99.4??kg?? BMI:??32.46?? GENERAL: No acute distress. Non-toxic. Well appearing and interactive. HEENT: Normocephalic. Atraumatic. Trachea midline. HEART: Regular rate and rhythm. RESPIRATORY: Equal and symmetric chest rise bilaterally; no increased work of breathing. ABDOMEN: Soft. Tenderness to palpation in the RUQ without rebound or guarding. Non-distended. Lap sites with Steris, C/D/I. Bile bag with scant bilious tinged output. MUSCULOSKELETAL: Moving all extremities equally. No calf fullness or tenderness. Compartments soft. SKIN: Warm and well perfused. Intact skin turgor. No edema noted on exam. NEURO: AOx3 Assessment/Plan Wood Rios is a 67 year old male with a past medical history of rectal cancer (treated with colectomy and diverting loop ileostomy with reversal in 2013), GERD, CAD, HTN, HLD, testosterone deficiency, BPH, WILIAM on CPAP, and CKD who presented with 1 week of epigastric pain with associated nausea, vomiting, constipation. He was admitted for gallstone pancreatitis with no evidence of cholecystitis on CT scan. His laboratory markers normalized and his abdominal pain resolved. He went for laparoscopic cholecystectomy 02/[address] Kenyon. The case was complicated by inability to adequately clipthe cystic duct due to friability of the tissues. A drain was left in place and found to have db bilious drainage, therefore the patient underwent ERCP with stent placement (GI 02/13). The procedures were well-tolerated, and the patient has since been tolerating a diet. His drain has minimal output. CT scan was ordered yesterday to rule out underlying fluid collection, has patient has had continued pain. CT scan negative. He will be discharged today with VNA??and drain in place. ?? PLAN Continue low fat diet Monitor drain output and character Home CPAP PRN pain meds DVT PPx: Lovenox Discharge with VNA today ?? Case discussed with Dr. Panda Please page ACS with any additional questions or concerns: [id number] ?? Intake and Output Intake and Output Results?? This visit (24 hour periods starting at 07:00 EDT)? 02/18/23 *?? 02/17/23?? 02/16/23?? Total Summary?Intake mL?? 405?? 780?? 680?Output mL?? 250?? 1,675?? 2,301?Fluid Balance ?? 155?? -895?? -1,621?? Intake (2)?Oral Fluids mL?? 405?? 600?? 680?Oral Nutritional Supplements mL?? --?? 180?? --?Total?? 405?? 780?? 680?? Output (3)?Torres Sebastian Abdomen mL?? --?? 25?? --?Stool Vol mL?? --?? --?? 1?Urine Voided mL?? 250?? 1,650?? 2,300?Total?? 250?? 1,675?? 2,301?? Counts (4)?Oral Fluids mL?? 405?? 600?? 680?Oral Nutritional Supplements mL?? --?? 180?? --?Urine Count ?? --?? 1?? --?Urine Voided mL?? 250?? 1,650?? 2,300? * This column has not completed the indicated time period.?? Labs Last 24 Hours BLOOD COUNT & DIFF ? Event Name?? Event Result?? Date/Time?? WBC 7 k/mm3 02/18/23 03:57:00 RBC 4.64 m/mm3??Low 02/18/23 03:57:00 Hgb 14.3 Gm/dL 02/18/23 03:57:00 Hct 41.8 % 02/18/23 03:57:00 MCV 90.1 femtoliters 02/18/23 03:57:00 MCH 30.8 pg 02/18/23 03:57:00 MCHC 34.2 g/dL 02/18/23 03:57:00 Platelet Count 243 k/mm3 02/18/23 03:57:00 MPV 9.4 femtoliters 02/18/23 03:57:00 Nucleated RBC (Automated) 0 #/100 WBC'S 02/18/23 03:57:00 ? CHEM GENERAL ? Event Name?? Event Result?? Date/Time?? Sodium 140 mmol/L 02/18/23 03:57:00 Chloride 104 mmol/L 02/18/23 03:57:00 Bicarbonate Level 24 mmol/L 02/18/23 03:57:00 Anion Gap 12 02/18/23 03:57:00 BUN 15 mg/dL 02/18/23 03:57:00 Creatinine-Blood 0.8 mg/dL 02/18/23 03:57:00 Calcium, Ionized pH Corrected 1.24 mmol/L 02/18/23 03:57:00 Phosphorus 3.8 mg/dL 02/18/23 03:57:00 Magnesium 1.8 mg/dL 02/18/23 03:57:00 Alkaline Phosphatase 186 units/L??High 02/18/23 03:57:00 AST (SGOT) 65 units/L??High 02/18/23 03:57:00 ALT (SGPT) 116 units/L??High 02/18/23 03:57:00 Bilirubin, Total 0.7 mg/dL 02/18/23 03:57:00 Bilirubin, Direct 0.3 mg/dL 02/18/23 03:57:00 Bilirubin, Indirect 0.4 mg/dL 02/18/23 03:57:00 ? * Caroline Carver RN: VERIFY, PERFORM, SIGN Event Display: Progress Note Hospital Authored Date: Patient: WOOD RIOS Age: 67 years Sex: Male : 1955 Associated Diagnoses: None Author: Caroline Carver RN Findings Problem Related to Alteration in Comfort : Alteration in Comfort/new 02/18/2023 1:00 EDT Alteration in Comfort Related to Surgery Goals & Outcomes: Comfort Pt will report acceptable level of comfort & pain control, Pt will state importance of adhering to pain strategy regime, Pt will demonstrate necessary skills to manage pain, Non-verbal indicators will indicate comfort/pain control Interventions Implemented: Comfort Assess pain using appropriate pain scale/tools, Assess aggravating factors & prevent them accordingly, Assess alleviating factors & promote them accordingly Goals/Interventions, Comfort Yes Comfort, Problem Start 02/16/2023 3:24 Reviewed plan with, Comfort Patient Patient Progression, Comfort Pt progressing according to plan Comfort, Problem Ongoing Yes . Alteration in Gastrointestinal : Alteration in Gastrointestinal Func/new 02/18/2023 1:00 EDT Alteration in GI status Related to Abdominal Surgery, Pancreatitis, Other: s/p cholecystectomy 02/12, ERCP 02/13 Goals & Outcomes, Gastrointestinal Other: pancreatitis, constipation, elevated liver enzymes Interventions, Gastrointestinal Assess/monitor abdomen for distention, tenderness, Assess/monitor abdominal girth & bowel function, Assess/monitor bowel pattern, bowel sounds, flatus, Assess/monitor number of bowel movements, Assess/monitor color, quantity, quality, consistency of stoo, Assess/monitor pt for nausea, vomiting, Assess/monitor effects of re-hydration, Assess/monitor intake &output, Assess if pt tolerating diet, Collaborate/Consult with Furnace Mechanic; review recommendations, DVT prophylaxis as ordered, Elevate HOB to facilitate lung expansion, prevent aspiration, Taking PO: Encourage/monitor intake & swallowing ability, Provide info on community resources for education, support, Teach Pt/caregiver diet & give copy of dietary instructions, Teach Pt/caregiver on bowel elimination interventions, Teach Pt/caregiver re: importance of bowel regime, Teach Pt/caregiverre: nutritional intake & dietary restrict, Teach/encourage deep breath & cough exercises, Teach/encourage use of incentive spirometer Goals/Interventions, Gastrointestinal Yes Gastrointestinal, Problem Start 02/07/2023 14:51 Reviewed plan with, Gastrointestinal Patient Patient Progression, Gastrointestinal Pt progressing according to plan . Nursing Data Gastrointestinal Data. : Gastrointestinal Data. 02/17/2023 20:02 EDT Gastrointestinal Symptoms Flatulence Abdomen Soft, Tender, Round RLQ Tenderness To palpation RUQ Tenderness To palpation Bowel Sounds LUQ Present Bowel Sounds RUQ Present Bowel Sounds LLQ Present Bowel Sounds RLQ Present Ostomy present No Gastric tube present No GI WNL except Normal Bowel Pattern Daily . Vital Signs : VITAL SIGNS SECTION 02/17/2023 20:12 EDT Temperature 98.4 DegF Temperature Route Oral Pulse Rate 73 bpm Respiratory Rate 18 br/min Systolic Blood Pressure 134 mm Hg Diastolic Blood Pressure 78 mm Hg Blood pressure sites Arm, right Oxygen Saturation 94 % Mode of Delivery (Oxygen) Room air . Narrative/Incidental P: Alteration in Comfort I: Please see interventions listed in care plan(s) above. E: Patient reports 4/10 pain, on the right outer side of abdomen. Medicated with scheduled medications and PRN Oxycodone. P: Alteration in Gastrointestinal I: Please see interventions listed in care plan(s) above. E: Abdomen is soft, round, and tender. Bowel sounds are present and +flatus, per patient. Tolerating a low fat diet and denies nausea and vomiting. Last bowel movement 02/17. 2 lap sites with steris, some staining noted, dry and intact. 1 lap site, [employer]. Right lower quadrant drain to gravity bag. Bag/drain teaching completed. Alert and oriented x4. Denies chest pain and numbness/tingling. No edema, +PP and +CMS. Lungs are clear on room air and denies SOB. CPAP at bedside. Encouraged use of incentive spirometer and patientable to reach 1250. Voiding in the bathroom. Ambulating independently. Resting comfortably in bed, wheels locked and in lowest position. Call elizabeth is within reach and patient rings appropriately. . Discharge Information Case Management Discharge Plan : Case Management Discharge Plan Data 02/16/2023 10:52 EDT Discharge Level of Care at Discharge Homehealth/VNA Discharge VNA/Hospice/Home Care [facility] [phone] Mode of Transportation Arranged car Name of Agency #1 [facility] [employer] #1 Intake Service Categories #1 Jail, Other: Drain Care Service Comments #1 The VNA will call you to set up an appointment. Please call the agency with anyquestgnmd [phone] Pulmonary Rehab Discharge : Pulmonary Rehab Discharge Status 02/17/2023 21:34 EDT CPAP/BiPAP Mask Type Full CPAP/BiPAP Mask Size Large 02/17/2023 4:30 EDT CPAP/BiPAP Mask Type Full CPAP/BiPAP Mask Size Large 02/17/2023 1:20 EDT CPAP/BiPAP Mask Type Full CPAP/BiPAP Mask Size Large 02/16/2023 21:35 EDT CPAP/BiPAP Mask Type Full CPAP/BiPAP Mask Size Large 02/16/2023 4:02 EDT CPAP/BiPAP Mask Type Full CPAP/BiPAP Mask Size Large 02/15/2023 23:27 EDT CPAP/BiPAP Mask Type Full CPAP/BiPAP Mask Size Large 02/15/2023 2:00 EDT CPAP/BiPAP Mask Type Full CPAP/BiPAP Mask Size Large 02/14/2023 21:50 EDT CPAP/BiPAP Mask Type Full CPAP/BiPAP Mask Size Large 02/14/2023 3:33 EDT CPAP/BiPAP Mask Type Full CPAP/BiPAP Mask Size Large 02/13/2023 23:08 EDT CPAP/BiPAP Mask Type Full CPAP/BiPAP Mask Size Large 02/13/2023 7:39 EDT CPAP/BiPAP Mask Type Full CPAP/BiPAP Mask Size Large Consult note * Sina Carlos MD: MODIFY Sina Carlos MD: MODIFY Event Display: Consultation Note Authored Date: Patient: ??WOOD RIOS ? Age:??67 Years?Sex:??Male?:??1955?? Chief Complaint Worsening abdominal pain x2 weeks Reason for Consultation ERCP History of Present Illness Patient is a 67-year-old man with a history of rectal cancer status post colectomy and diverting loop ileostomy with reversal in 2013, GERD, CAD, HTN, HLD,??BPH, WILIAM??on CPAP??and CKD??was??admitted for gallstone pancreatitis??GERD. ??Pancreatitis had resolved and was planned for??laparoscopic cholecystectomy. ??Had a cholecystectomy yesterday. ??Concerns for??bile leak from cystic duct with evidence of bile in his JEREMI drain, increase in ALP today but stable bili. I consulted for ERCP. Physical Exam Vitals & Measurements T:??99.2?F?? TMIN:??97.3?F?? TMAX:??99.2?F?? HR:??65??(Monitored)?? RR:??18?? BP:??143/83?? SpO2:??90%?? WT:??99.4??kg?? General:??Well appearing, looks comfortable at rest HEENT:??JULISSA, Moist mucus membranes, oropharynx benign, no palpable?? Respiratory:??normal work of breathing, equal air entry bilaterally, breath sounds vesicular. No wheezes, rhonchi or crepitations Cardiovascular:??Normal rate, regular rhythm, no murmurs rubs of gallops on auscultation GI/Abdomen:??Normal active bowel sounds, soft, non-tender, non-distended. no palpable masses or organomegaly. ??JEREMI drain in situ with drainage Extremities:??Moving extremities,. No peripheral edema, lower limbs are warm and well perfused, ??DP and PT pulses palpable bilaterally. Skin:??No jaundice, no ecchymoses Neurologic:??Alert & Oriented, no obvious focal neurological deficit Psychiatric:??Mood and affect appropriate Assessment/Plan Patient is a 67-year-old man with gallstone pancreatitis, status postcholecystectomy , with evidence of bilious drainage in JEREMI drain patient concerns for bile leak. I consulted for further evaluation with view to ERCP ?? Plan -Patient taken for ERCP with stent placement to offload pressure from biliary system.? This note was typed using My[employer] dictation software. Occasionally, typing errors may occur. Please contact me on Cortext if anything requires further clarification. Patient discussed with attending physician, ?? Quang Antoine MD Gastroenterology Fellow ??PGY 4? Addendum: I have seen and evaluated this patient. ??I have discussed the case and its management with??fellow/resident??and agree with the findings and plan as documented in the note above.? Sina Carlos MD Problem List/Past Medical History Ongoing Arthralgia Benign prostatic hyperplasia CAD (coronary artery disease) Chronic kidney disease (CKD) Concentration deficit Constipation, chronic Depression, major, in remission GERD (gastroesophageal reflux disease) Hemoptysis Hemorrhoids History of myocardial infarction History of rectal cancer Hyperlipidemia Hypertension Hypogonadism male Leg cramps Metatarsalgia of both feet Nephrolithiasis Obese class I WILIAM on CPAP Plantar fasciitis, left Sleep apnea Testosterone deficiency Procedure/Surgical History ???Colonoscopy (12/09/2016)???Sigmoidoscopy (02/20/2015)???CT of abdomen and pelvis (03/15/2014)???Colonoscopy (11/06/2007)???Ultrasound (11/26/2006)???Endoscopy of GI tract (10/01/2006)???Angioplasty balloon catheter???Cholecystectomy???Lithotripsy???Partial colectomy Medications Inpatient aspirin 81 mg oral delayed release tablet, 81 mg, By Mouth, Daily Dilaudid Inj, 0.5 mg= 0.5 mL, IV Push Slowly, Every 4 hours, PRN Docusate/Senna Tablet, 1 tablet, By Mouth, 2 times a day Dulcolax Tablet, 5 mg, By Mouth, Daily, PRN Haloperidol LACTATE Inj (PACU ONLY), 1 mg= 0.2 mL, IV Push, Once, PRN HYDROmorphone Inj (PACU ONLY), 0.25 mg= 0.25 mL, IV Push Slowly, Every 10 minutes, PRN HYDROmorphone Inj (PACU ONLY), 0.5 mg= 0.5 mL, IV Push Slowly, Every 10 minutes, PRN losartan 50 mg oral tablet, 50 mg, By Mouth, Daily LR 1,000 mL, 1000 mL, IV Infusion LR 1000 mL, 1000 mL, IV Infusion Melatonin Tablet, 3 mg, By Mouth, Daily at bedtime, PRN Metoprolol Succinate ER 50 mg oral tablet, extended release, 50 mg, By Mouth, Daily MiraLax Powder, 17 Gm= 1 pack/packet, By Mouth, Daily, PRN NaCL 0.9% Flush, 3 mL, IV Push, Every 8 hours NaCL 0.9% Flush, 3 mL, IV Push, Every 8 hours, PRN nalOXONE Inj, 0.04 mg= 0.1 mL, IV Push, Every 5 minutes, PRN Ondansetron Inj (PACU ONLY), 4 mg, IV Push, Once, PRN oxyCODONE 5 mg oral tablet, 5 mg, By Mouth, Every 4 hours, PRN Simethicone Tablet, 80 mg, Chew, 3 times a day, PRN Tylenol 325 mg oral tablet, 650 mg, By Mouth, Every 6 hours Zofran Inj, 4 mg, IV Push, Every 6 hours, PRN Home AndroGel 40.5 mg (1.62%) transdermal gel, 2 pack/packet, Topically, Daily in AM Aspirin, 81 mg, By Mouth, Daily atorvastatin 40 mg oral tablet, 1 tablet, By Mouth, Daily at bedtime, 3 refills erythromycin 0.5% ophthalmic ointment, 0.5 inches, Eyes, Both, 4 times a day Fish Oil 1200 mg oral capsule, 1200 mg= 1 capsule, By Mouth, Daily gemfibrozil 600 mg oral tablet, 1 tablet, By Mouth, 2 times a day, 3 refills hydroCHLOROthiazide 12.5 mg oral capsule, 1 capsule, By Mouth, Daily, 3 refills losartan 50 mg oral tablet, 50 mg= 1 tablet, By Mouth, Daily, 3 refills Magnesium Carbonate, 54 mg, By Mouth, Daily Metoprolol Succinate ER 50 mg oral tablet, extended release, 1 tablet, By Mouth, Daily, 3 refills MiraLax oral powder for reconstitution, 17 Gm, By Mouth, Daily, 6 refills nitroglycerin 0.4 mg sublingual tablet, 0.4 mg= 1 tablet, Sublingual, Every 5 minutes, PRN, 11 refills pancreatin oral tablet, 2 tablet, By Mouth, 6 times a day, 4 refills pantoprazole 40 mg oral delayed release tablet, 1 tablet, By Mouth, Daily, 3 refills [place], By Mouth Allergies Contrast Dye??(hives) Social History Alcohol Use: Current. Frequency: 1-2 times per month. Type: Beer. Electronic Cigarette/Vaping Electronic Cigarette Use: Never. Employment/School Status: Disabled. 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 Exercise Self assessment: Fair condition. Home/Environment Living situation: Home/Independent. Lives with: Children, Spouse. Other: - safe; 3 children; 2 dogs. Nutrition/Health Diet: Regular. Sexual Sexual orientation: Heterosexual. Gender identity: Male. Substance Abuse Use: Never. Tobacco Never smoker Family History Alcoholism: Negative: Mother, Father, Sister, Brother and Other. CAD - Coronary artery disease: Mother and Brother.Negative: Father, Sister and Other. Cancer of breast: Negative: Mother, Father, Sister, Brother and Other. Cancer of colon: Negative: Mother, Father, Sister, Brother and Other. Cancer of prostate: Negative: Mother, Father, Sister, Brother and Other. Diabetes mellitus type II: Negative: Mother, Father, Sister, Brother and Other. Hyperlipidemia: Mother and Brother.Negative: Father, Sister and Other. Hypertension: Mother and Brother.Negative: Father, Sister and Other. Pancreatic cancer: Sister. RA - Rheumatoid arthritis: Negative: Mother, Father, Sister, Brother and Other. Stroke: Negative: Mother, Father, Sister, Brother and Other. Thyroid disease: Negative: Mother, Father, Sister, Brother and Other. * Gabriel Flores: MODIFY, MODIFY, PERFORM, MODIFY Event Display: Consultation Note Authored Date: [id number] Patient: ??WOOD RIOS ? Age:??67 Years?Sex:??Male?:??1955?? Chief Complaint/Reason for Consult CC: Gallstone pancreatitis History of Present Illness 67-year-old male with a past medical history of rectal cancer (treated with colectomy and divertingloop ileostomy with reversal in 2013), GERD, CAD, HTN, HLD, testosterone deficiency, BPH, WILIAM on CPAP, and CKD who ACS was consulted to see regarding??cholecystectomy with??acute pancreatitis presents to [facility] on 02/09 with a one week history of mid epigastric pain and associated nausea, vomiting, andconstipation. Workup in ED showed total bilirubin 1.2 (down from 2.8),??AST 43 (down from 209), ALT80 (down from 162), ALP 102 (down from 164), and??lipase 34 (down from 4027). CT A/P W/ IV + Oral contrast obtained showing cholelithiasis without any evidence of acute cholecystitis and diffuse mesen teric fat stranding/edema surrounding pancreatic tail & body. Patient reported never having felt this pain before. Mentioned a family history of pancreatic cancer (sister) and esophageal cancer (father). Denies fever,chills, SOB and chest pain. Review of Systems Negative except as stated in HPI. Physical Exam Vitals & Measurements T:??98.5?F?? HR:??66??(Peripheral)?? RR:??18?? BP:??135/69?? SpO2:??95%?? HT:??175??cm?? WT:??99.4??kg?? BMI:??32.46?? Constitutional: Alert, awake,??in no distress. Mental Status: Oriented to person, place and time. Head:??Normocephalic, atraumatic Respiratory: Normal respiratory rate and effort.? Cardiovascular: Regular rate and rhythm. ?? Gastrointestinal: Abdomen soft, mildly distended,??mid epigastric tenderness. Voluntary guarding. No rebound tenderness. Negative Aleman's sign. No signs of focal or generalized peritonitis. Skin: Skin is warm and dry. Musculoskeletal: No gross deformities. Psychiatric: Normal mood and affect Assessment/Plan Wood Rios is a 67 year old male with a past medical history of rectal cancer (treated with colectomy and diverting loop ileostomy with reversal in 2013), GERD, CAD, HTN, HLD, testosterone deficiency, BPH, WILIAM on CPAP, and CKD who ACS was consulted to see regarding??cholecystectomy with??acute pancreatitis presents to [facility] on 02/09 with a one week history of mid epigastric pain and associatednausea, vomiting, and constipation. Workup in ED showed total bilirubin 1.2 (down from 2.8),??AST 43 (down from 209), ALT 80 (down from 162), ALP 102 (down from 164), and??lipase 34 (down from 4027).CT A/P W/ IV + Oral contrast obtained showing cholelithiasis without any evidence of acute cholecyst itis and diffuse mesenteric fat stranding/edema surrounding pancreatic tail & body. On evaluation, there is mid epigastric pain with a negative Aleman's sign. Lab values have been trending down, will continue to??monitor patient with serial abdominal exams until signs of pancreatitis resolve for OR planning.? Plan: - IVF - Pain meds prn - schedule for interval cholecystectomy after pancreatitis resolves ?? This note was prepared with assistance by Gabriel Flores, MS4. Case to be discussed with .??Luigi BARNARD. Please page ACS with any additional questions or??concerns: [id number] Problem List/Past Medical History Ongoing Arthralgia Benign prostatic hyperplasia CAD (coronary artery disease) Chronic kidney disease (CKD) Concentration deficit Constipation, chronic Depression, major, in remission GERD (gastroesophageal reflux disease) Hemoptysis Hemorrhoids History of myocardial infarction History of rectal cancer Hyperlipidemia Hypertension Hypogonadism male Leg cramps Metatarsalgia of both feet Nephrolithiasis Obese class I WILIAM on CPAP Plantar fasciitis, left Sleep apnea Testosterone deficiency Procedure/Surgical History Colonoscopy: 12/09/16 Sigmoidoscopy: 02/20/15 CT of abdomen and pelvis: 03/15/14 Colonoscopy: 11/06/07 Ultrasound: 11/26/06 Endoscopy of GI tract: 10/01/06 Partial colectomy Angioplasty balloon catheter Lithotripsy Home Medications Aspirin: 81 mg, By Mouth, Daily Atorvastatin: 1 tablet, By Mouth, Daily at bedtime Erythromycin Ophthalmic: 0.5 inches, Eyes, Both, 4 times a day Gemfibrozil: 1 tablet, By Mouth, 2 times a day Hydrochlorothiazide: 1 capsule, By Mouth, Daily Losartan: 50 mg = 1 tablet, By Mouth, Daily Magnesium Carbonate: 54 mg, By Mouth, Daily Metoprolol: 1 tablet, By Mouth, Daily Nitroglycerin: 0.4 mg = 1 tablet, Sublingual, Every 5 minutes, PRN (Chest Pain), not to exceed 3 doses/15 min--if pain persists, seek medical attentionCall 911 [place]-3 Polyunsaturated Fatty Acids: 1,200 mg = 1 capsule, By Mouth, Daily Pancreatin: 2 tablet, By Mouth, 6 times a day, Take 2 tables before every meal and snack Pantoprazole: 1 tablet, By Mouth, Daily Polyethylene Glycol 3350: 17 Gm, By Mouth, Daily [place]: By Mouth Testosterone: 2 pack/packet, Topically, Daily in AM Allergies Contrast Dye??(hives) Social History Alcohol Use: Current. Frequency: 1-2 times per month. Type: Beer. Electronic Cigarette/Vaping Electronic Cigarette Use: Never. Employment/School Status: Disabled. 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 Exercise Self assessment: Fair condition. Home/Environment Living situation: Home/Independent. Lives with: Children, Spouse. Other: - safe; 3 children; 2 dogs. Nutrition/Health Diet: Regular. Sexual Sexual orientation: Heterosexual. Gender identity: Male. Substance Abuse Use: Never. Tobacco Never smoker Family History Mother (piotr, ): CAD - Coronary artery disease; Hyperlipidemia; Hypertension Brother: CAD - Coronary artery disease; Hyperlipidemia; Hypertension Sister (Alyssa, ): Pancreatic cancer Lab Results Labs Last 24 Hours BLOOD COUNT & DIFF ? Event Name?? Event Result?? Date/Time?? WBC 9.6 k/mm3 02/09/23 00:26:00 RBC 4.9 m/mm3 02/09/23 00:26:00 Hgb 14.9 Gm/dL 02/09/23 00:26:00 Hct 45 % 02/09/23 00:26:00 MCV 91.8 femtoliters 02/09/23 00:26:00 MCH 30.4 pg 02/09/23 00:26:00 MCHC 33.1 g/dL 02/09/23 00:26:00 Platelet Count 154 k/mm3 02/09/23 00:26:00 MPV 9.8 femtoliters 02/09/23 00:26:00 Nucleated RBC (Automated) 0 #/100 WBC'S 02/09/23 00:26:00 ? CHEM GENERAL ? Event Name?? Event Result?? Date/Time?? Sodium 137 mmol/L 02/09/23 00:26:00 Chloride 102 mmol/L 02/09/23 00:26:00 Bicarbonate Level 23 mmol/L 02/09/23 00:26:00 Anion Gap 12 02/09/23 00:26:00 Glucose Level 85 mg/dL 02/09/23 00:26:00 BUN 10 mg/dL 02/09/23 00:26:00 Creatinine-Blood 0.8 mg/dL 02/09/23 00:26:00 Alkaline Phosphatase 102 units/L 02/09/23 00:26:00 Lipase 34 units/L 02/09/23 00:26:00 AST (SGOT) 43 units/L??High 02/09/23 00:26:00 ALT (SGPT) 80 units/L??High 02/09/23 00:26:00 Bilirubin, Total 1.2 mg/dL 02/09/23 00:26:00 Bilirubin, Direct 0.5 mg/dL??High 02/09/23 00:26:00 Bilirubin, Indirect 0.7 mg/dL 02/09/23 00:26:00 ? Note * Geovanna Kumari RN: PERFORM Event Display: Discharge/Transfer Note Hospital Authored Date: [id number] Nursing Discharge Note Entered On: 02/18/2023 15:50 EDT Performed On: 02/18/2023 15:49 EDT by Geovanna Kumari RN Nursing Discharge Note 2 Discharge Time : 02/18/2023 15:50 EDT Discharge Level of Care at Discharge : Homehealth/VNA Discharge VNA/Hospice/Home Care(v001) : [facility] [phone] Patient Left Unit Via : Ambulatory Patient Accompanied Off Unit with : Significant other DC Instructions Provided & Signed by Pt : Yes Patient Understands D/C Instructions : Yes Patient Instructions Discharge Signed : Yes Did Pt have Specialty Bed or Wound Vac : No Geovanna Kumari RN - 02/18/2023 15:49 EDT * Donovan VIDALES, Maureen Alexander: PERFORM, MODIFY Event Display: Discharge/Transfer Note Hospital Authored Date: [id number] Patient: ??WOOD RIOS ? Age:??67 Years?Sex:??Male?:??1955?? Admit Date Admission Date: 02/07/2023 Discharge Date 02/18/2023 Discharge Diagnoses 1.??Acute pancreatitis, 02/07/2023 3.??Abnormal CT scan, lung, 02/07/2023 4.??CAD (coronary artery disease), 02/07/2023 5.??Hypertension, 02/07/2023 6.??Hyperlipidemia, 02/07/2023 7.??History of rectal cancer, 02/07/2023 Pneumonia, 02/07/2023 Hospital Course Wood Rios is a 67 year old male with a past medical history of rectal cancer (treated with colectomy and diverting loop ileostomy with reversal in 2013), GERD, CAD, HTN, HLD, testosterone deficiency, BPH, WILIAM on CPAP, and CKD who presented with 1 week of epigastric pain with associated nausea, vomiting, constipation. He was admitted for gallstone pancreatitis with no evidence of cholecystitis on CT scan. His laboratory markers normalized and his abdominal pain resolved. He went for laparoscopic cholecystectomy 02/[address] Kenyon - case was complicated by inability to adequately clip the cystic duct due to friability of the tissues. A drain was left in place and found to have db chen ious drainage, therefore the patient underwent ERCP with stent placement (GI 02/13). The procedures were well-tolerated, and the patient has been advanced to a low fat diet. Drain initially bilious but now with decrease to no output. repeat??CT scan on 02/17??showing with small volume fluid and gas surrounding the drain. No well-defined enhancing rim. Pt remains afebrile with no leukocytosis. ?? The patient??was cleared for discharge on??02/18/2023. ?At that time, his pain was controlled and he was tolerating a diet, having bowel??function, voiding, and ambulating. ??He??was instructed to continue taking over the counter acetaminophen for pain control in addition to the prescription for oxycodone 5 mg Q 4 hours as needed for pain. Pt also prescribed Docusate/senna BID??dosing while on narcotic therapy to prevent constipation. He was instructed to follow-up as an outpatient on February 23, 2023 @ 3:[address] Kenyon. Objective/Physical Exam on Day of Discharge General: Speaking in full sentences and in no apparent distress HEENT: Normocephalic and atraumatic Eyes: EOM, no drainage, no redness Ears: Symmetrical, no drainage Nose: Nares patent, no drainage Neck: Soft and supple, trachea midline Resp: CTA, no wheezes, no rales Cardiac: RRR, no m/g/r,?? Abdomen/ GI: soft nontender, active bowel sounds all 4 quadrants. Extremities: No edema Neurologic: alert and oriented?3. Speech is fluent. No facial droop. Intact cranial nerves II-XII; Muscle strength 5/5 in all extremities. Intact gross sensation Psychiatric: Appropriate affect and mood. Able to engage in conversation appropriately Skin: warm pale and dry? Future Appointments Wednesday 3:20 PM EDT ?? With: Kostas BARNARD, Prateek Casarez Where: [facility] [address] [place] [address]- Status: Pending 2022 7:30 AM EDT ?? Where: [facility] Status: Pending Patient Discharge Condition stable Discharge Disposition home with VNA for drain half-way Health Face to Face *Denotes mandatory riley ?? *I certify that this patient is under my care and that I or an allowed non- physician working with me had a face to face encounter with the patient on this date:??02/18/2023 12:21 ?? *The encounter with the patient was in whole, or in part, for the following medical condition, which is the primary diagnosis(es) for home health care:??Acute pancreatitis (K85.90) Constipation (K59.00) Abnormal CT scan, lung (R91.8) CAD (coronary artery disease) (I25.10) Hypertension (I10) Hyperlipidemia (E78.5) History of rectal cancer (Z85.048) Abdominal pain (R10.9) Nausea and vomiting (R11.2) Pancreatitis (K85.90) Pneumonia (J18.9) ? *Select the indications for the discipline/s that are being arranged for this patient. Nursing (select all that apply): [_] None [xx] Medication management (reconciliation, teaching)?? [xx_] Chronic disease management?? [_] Wound care and treatment?? xx[_] Home safety evaluation [_] Administer SQ/IM/IV medications?? [_] Cath care?? [xx_] Drain care---> JEREMI drain management [_] Trach or GT care?? Other _ Occupation Therapy (select all that apply): [_] None [_] ADL Management [_] Fall prevention training [_] Energy conservation [_] Cognitive training Other _ Physical Therapy (select all that apply): [_] None [_] Functional mobility training [_] Home exercise program to strengthen [_] Increase ROM?? [_] Falls prevention training [_] Home maintenance program for chronic disease Other _ Speech Therapy (select all that apply): [_] None [_] Swallow evaluation and training [_] Speech and language training [_] Cognitive training to process, organize, and/or recall information Other _ ? *Homebound due to (select all that apply): [xx_] Inability to leave home without assistance/supervision [_] Inability to ambulate without assistance [_] Pain [_] Decreased strength and endurance [_] Unsteady gait [_] Severe SOB and fatigue [_] Impaired transfers [_] Inability to negotiate stairs [_] Limited weight bearing [_] Mental status change? *Physician Signature:??Maureen Man SEBD TEACHER ?? *By signing this, I certify that I have personally evaluated the patient and agree with the findings and recommendations as documented above. ? Procedures Performed This Visit Procedure Date: 02/13/2023.?? Preoperative Diagnosis: Gallstone pancreatitis.?? Postoperative Diagnosis: Same as Preoperative Diagnosis.?? Procedure Performed: ?? Cholecystectomy ([id number])..?? Surgeon: Prateek Kenyon MD?? Assistants: Rodney BARNARD, Maru Pearl?? Anesthesia Type: General.?? Inpatient Medications Medications (20) Active SCHEDULED: (11) Acetaminophen 325 mg Tablet (Tylenol 325 mg oral tablet) ??975 mg, By Mouth, Every 6 hours Aspirin 81 mg EC Tablet (aspirin 81 mg oral delayed release tablet) ??81 mg, By Mouth, Daily Enoxaparin 40 mg Inj (Enoxaparin Inj) ??40 mg 0.4 mL, Subcutaneous Injection, Every 24 hours Gabapentin 300 mg Capsule (gabapentin 300 mg oral capsule) ??300 mg, By Mouth, 3 times a day Lidocaine 5% Topical Patch (Lidocaine 5% Patch) ??1 each, Topically, Daily Losartan 50 mg Tablet (losartan 50 mg oral tablet) ??50 mg, By Mouth, Daily Metoprolol 50 mg XL Tablet (Metoprolol ??XL Tablet) ??50 mg, By Mouth, Daily NaCl 0.9% Flush 3ml (NaCL 0.9% Flush) ??3 mL, IV Push, Every 8 hours Pantoprazole 40 mg EC Tablet (Protonix 40 mg oral delayed release tablet) ??40 mg, By Mouth, Daily Remove Patch (Remove Lidocaine Patch) ??1 each, Topically, Daily at bedtime Senna 8.6 mg / Docusate 50 mg tablet (Docusate/Senna Tablet) ??1 tablet, By Mouth, 2 times a day CONTINUOUS: (0) PRN: (9) Bisacodyl 5 mg EC Tablet (Dulcolax Tablet) ??5 mg, By Mouth, Daily Diazepam 5 mg Tablet (Valium 5 mg oral tablet) ??5 mg, By Mouth, Every 8 hours HYDROmorphone 0.5 mg/0.5 mL Inj Syringe (Dilaudid Inj) ??0.5 mg 0.5 mL, IV Push Slowly, Every 4 hours Melatonin 3 mg Tablet (Melatonin Tablet) ??3 mg, By Mouth, Daily at bedtime NaCl 0.9% Flush 3ml (NaCL 0.9% Flush) ??3 mL, IV Push, Every 8 hours Ondansetron 2mg/mL Inj (2mL Vial) (Zofran Inj) ??4 mg, IV Push, Every 6 hours OxyCODONE 5 mg IR Tablet (oxyCODONE 5 mg oral tablet) ??5 mg, By Mouth, Every 4 hours Polyethylene Glycol 17 Gm Powder (MiraLax Powder) ??17 Gm 1 pack/packet, By Mouth, Daily Simethicone 80 mg Chewable Tablet (Simethicone Tablet) ??80 mg, Chew, 3 times a day Discharge Medications Aspirin?81?Milligram?By Mouth?Daily Atorvastatin (atorvastatin 40 mg oral tablet)?1?tab(s)?By Mouth?Daily at bedtime Erythromycin Ophthalmic (erythromycin 0.5% ophthalmic ointment)?0.5?Inch?Eyes, Both?4 times a day Gemfibrozil (gemfibrozil 600 mg oral tablet)?1?tablet?By Mouth?2 times a day Hydrochlorothiazide (hydroCHLOROthiazide 12.5 mg oral capsule)?1?capsule?By Mouth?Daily Losartan (losartan 50 mg oral tablet)?50?Milligram?1?tablet?By Mouth?Daily?for90?Days Magnesium Carbonate?54?Milligram?By Mouth?Daily Metoprolol (Metoprolol Succinate ER 50 mg oral tablet, extended release)?1?tab(s)?By Mouth?Daily Nitroglycerin (nitroglycerin 0.4 mg sublingual tablet)?1?tab(s)?0.4?Milligram?Sublingual?Every 5 minutes?as needed?Chest Pain?not to exceed 3 doses/15 min--if pain persists, seek medical attentionCall 911 [place]-3 Polyunsaturated Fatty Acids (Fish Oil 1200 mg oral capsule)?1?capsule?1,200?Milligram?By Mouth?Daily Pancreatin (pancreatin oral tablet)?2?tab(s)?By Mouth?6 times a day?Take 2 tables before every meal and snack Pantoprazole (pantoprazole 40 mg oral delayed release tablet)?1?tab(s)?By Mouth?Daily Polyethylene Glycol 3350 (MiraLax oral powder for reconstitution)?17?gram?By Mouth?Daily [place]?By Mouth Testosterone (AndroGel 40.5 mg (1.62%) transdermal gel)?2?pack/packet?Topically?Daily in AM Labs Last 24 Hours BLOOD COUNT & DIFF ? Event Name?? Event Result?? Date/Time?? WBC 7 k/mm3 02/18/23 03:57:00 RBC 4.64 m/mm3??Low 02/18/23 03:57:00 Hgb 14.3 Gm/dL 02/18/23 03:57:00 Hct 41.8 % 02/18/23 03:57:00 MCV 90.1 femtoliters 02/18/23 03:57:00 MCH 30.8 pg 02/18/23 03:57:00 MCHC 34.2 g/dL 02/18/23 03:57:00 Platelet Count 243 k/mm3 02/18/23 03:57:00 MPV 9.4 femtoliters 02/18/23 03:57:00 Nucleated RBC (Automated) 0 #/100 WBC'S 02/18/23 03:57:00 ? CHEM GENERAL ? Event Name?? Event Result?? Date/Time?? Sodium 140 mmol/L 02/18/23 03:57:00 Chloride 104 mmol/L 02/18/23 03:57:00 Bicarbonate Level 24 mmol/L 02/18/23 03:57:00 Anion Gap 12 02/18/23 03:57:00 BUN 15 mg/dL 02/18/23 03:57:00 Creatinine-Blood 0.8 mg/dL 02/18/23 03:57:00 Calcium, Ionized pH Corrected 1.24 mmol/L 02/18/23 03:57:00 Phosphorus 3.8 mg/dL 02/18/23 03:57:00 Magnesium 1.8 mg/dL 02/18/23 03:57:00 Alkaline Phosphatase 186 units/L??High 02/18/23 03:57:00 AST (SGOT) 65 units/L??High 02/18/23 03:57:00 ALT (SGPT) 116 units/L??High 02/18/23 03:57:00 Bilirubin, Total 0.7 mg/dL 02/18/23 03:57:00 Bilirubin, Direct 0.3 mg/dL 02/18/23 03:57:00 Bilirubin, Indirect 0.4 mg/dL 02/18/23 03:57:00 ? Follow-Up Appointments Added Follow Up ?Time Frame ?Comments Magaly BARNARD, Min Blackman?Within two weeks?post hospital follow up Patient Instructions Special Instructions ?? If you develop fever, chills, increased pain, nausea, vomiting, bleeding, or increased redness or pus around the wound please call the surgery office at . Please take medications as prescribed and do not drive while on narcotic medications. ?? If you have any questions, please call the surgery office at . ?? Please call your Primary Care Provider within 1-2 week for post hospital follow up and review of your medications. ?? Activity Instructions ?? -No heavy lifting >10 lbs -Increase activity as tolerated -Encourage coughing and deep breathing, use of incentive spirometer -No tub baths until incision(s) has/have healed -May shower on postop day #2 -No driving until off narcotics and cleared by Surgery ? When to call your healthcare provider ?? Call your healthcare provider if you have any of the below:?Pain, redness, swelling, or bleeding that gets worse?Smelly fluid from the incision, or changes in color of the drainage from the incision?Fever of 100.4??F ( 38??C) or higher, or as advised?Shaking or chills?Vomiting or nausea that doesn't go away?Numbness, coldness, or tingling around the incision?Changes in skin color around the incision?Opening of the wound?Stitches that pull apart? * Geovanna Kumari RN: PERFORM, MODIFY Event Display: Patient Education/Instruction Authored Date: [id number] Inpatient Adult Discharge Instructions [address] [address] Name: WOOD RIOS : 1955 Visit: 02/07/2023 11:06:00 Current Date: 02/18/2023 14:01 Account: [id number] Inpatient Adult Discharge Instructions We would like to thank you for allowing us to assist you with your healthcare needs. The following includes patient education materials and information regarding your injury/illness. Our entire staffstrives to provide an excellent experience for our patients and their families. PLEASE ENSURE YOU FOLLOW-UP PER THE INSTRUCTIONS BELOW! ?? YOUR OPINION IS IMPORTANT TO US! Please complete the survey you may receive by mail or email. Your feedback will be used to make improvements to the healthcare experiences of our patients and their families. Surveys are administered by [employer] ?? If further treatment with your primary care physician or another doctor is recommended, it is important for you to keep the appointment. Call your primary care physician or return to the Emergency Department immediately if your condition worsens, fails to improve, or new symptoms develop. If you need to find a doctor, you can call [facility] [employer] [facility] for a referral at [phone] or toll free at [phone] [email or web address] ([phone]) or log in to [email or web address].. ?? [facility], in keeping with [facility] guidance, no longer requires face masks for staff, patientsor visitors in most situations. Similiar to time spent indoors at other locations, there is the chance that you were exposed to repiratory viruses during your time with us (such as flu or COVID-19). If you develop symptoms concerning for a viral respiratory infection, please seek testing (and treatment if indicated) from your medical provider or home test kit. ?? You can view and manage your care through the patient portal or by using a health care alex of your choosing. [employer] is a website that allows you to securely view your medical information including your hospital discharge summary, office visit summaries, medications and follow-up visits. You can also request appointments, renew medications, and request access to your medical information using a health care alex of your choosing, or just ask a question. You can enroll at [email or web address] or register during your next office visit. You have been discharged from [facility], Patient Care Unit: SW6. If you have any questions regarding these instructions after you leave, please call us and we will be happy to assist you. [facility] Your Care Team Attending Physician Kostas BARNARD, Prateek Casarez Consulting Providers Gigi BARNARD, Mara Casarez; Prateek Kenyon MD; Nallely BARNARD, giles Discharging Providers Donovan VIDALES, Maureen Alexander Reason for Admission Worsening abdominal pain x2 weeks Your Diagnosis Pancreatitis Abdominal pain Nausea and vomiting Constipation Acute pancreatitis Abnormal CT scan, lung CAD (coronary artery disease) Hypertension Hyperlipidemia History of rectal cancer Pneumonia Tests Performed Below is a partial list of the tests performed during your hospitalization. You may have had other tests and procedures not included in this list. Please discuss all test results with your provider. [id number] Basic Metabolic Panel BUN CA 19-9 Calcium Level CBC CBC w/ Differential Comprehensive Metabolic Panel COVID-19 (Novel Coronavirus), Rapid PCR Creatinine Electrolytes Glucose Level Hepatic Function Panel Hold Blue Top Tube Ionized Calcium Lactic Acid Level LFT's Lipase Lytes Magnesium Level Phosphorus Level PROCALCITONIN, SERUM Troponin T, High Sensitivity Urinalysis Reflex Culture CT Abd/Pelvis W/ IV + Oral Contrast CT Abd/Pelvis W/ IV Contrast Only XR Chest 2 Views Frontal and Lat XR ERCP Both Ducts Primary Care Provider Min Mckenzie MD Advance Directive Health Care Proxy on File Yes - Health Care Proxy Discharge Vitals Temperature: 98.3 DegF Height: 175 cm Pulse Rate: 71 bpm Weight: 99.4 kg Respiratory Rate: 17 br/min Body Mass Index:??32.46 kg/m2??Critical Systolic Blood Pressure: 128 mm Hg Body surface area: 2.2 Diastolic Blood Pressure: 70 mm Hg ?? Oxygen Saturation: 98 % ?? Studies Pending All tests and labs ordered during this hospital stay have been completed unless listed below. Please discuss all pending results with your provider listed above in these instructions. ?? Add On Lab Order BUN CBC w/ Differential Creatinine Electrolytes (Lytes) Hepatic Function Panel Ionized Calcium Magnesium Level Phosphorus Level What to do next Instructions From Your Doctor Special Instructions ?? If you develop fever, chills, increased pain, nausea, vomiting, bleeding, or increased redness or pus around the wound please call the surgery office at . Please take medications as prescribed and do not drive while on narcotic medications. ?? If you have any questions, please call the surgery office at . ?? Please call your Primary Care Provider within 1-2 week for post hospital follow up and review of your medications. ?? Activity Instructions ?? -No heavy lifting >10 lbs -Increase activity as tolerated -Encourage coughing and deep breathing, use of incentive spirometer -No tub baths until incision(s) has/have healed -May shower on postop day #2 -No driving until off narcotics and cleared by Surgery ? When to call your healthcare provider ?? Call your healthcare provider if you have any of the below:?Pain, redness, swelling, or bleeding that gets worse?Smelly fluid from the incision, or changes in color of the drainage from the incision?Fever of 100.4??F ( 38??C) or higher, or as advised?Shaking or chills?Vomiting or nausea that doesn't go away?Numbness, coldness, or tingling around the incision?Changes in skin color around the incision?Opening of the wound?Stitches that pull apart? Discharge Orders Scheduled Follow-Up Appointments Wednesday 3:20 PM EDT ?? With: Kostas BARNARD, Prateek Casarez Where: [facility] [address] [place] [address]- Status: Pending 2022 7:30 AM EDT ?? Where: [facility] Status: Pending You Need to Schedule the Following Appointments Follow Up with??Magaly BARNARD, Min Blackman When:??Within Within two weeks Why: post hospital follow up Where: [address] [place] [id number]- Discharge Medications WOOD RIOS :1955 Visit Date:02/07/2023 Medications: Please continue your medications until treatment is completed or stopped by your provider. Medications not listed below should be discontinued. Discuss any questions related to medications with your provider. What How Much When Instructions Next Dose New Docusate-Senna (docusate-senna 50 mg-8.6 mg oral capsule) 1 capsule Oral Twice a day Duration: 3 Days Pickup at [place] [id number] 9pm New Oxycodone (oxyCODONE 5 mg oral tablet) 5 Milligram Oral Every 4 hours as needed for Pain , Moderate Duration: 3 Days Pickup at [facility] 3 as needed Unchanged Aspirin 81 Milligram Oral Daily 02-19-23 Unchanged Atorvastatin (atorvastatin 40 mg oral tablet) 1 tab(s) Oral Daily at Bedtime 02-18-23 Unchanged Erythromycin Ophthalmic (erythromycin 0.5% ophthalmic ointment) 0.5 Inch Both eyes 4 times a day 02-18-23 Unchanged Gemfibrozil (gemfibrozil 600 mg oral tablet) 1 tab(s) Oral Twice a day 02-18-23 Unchanged Losartan (losartan 50 mg oral tablet) 1 tab(s) Oral Daily Duration: 90 Days 02-19-23 Unchanged Magnesium Carbonate 54 Milligram Oral Daily 02-19-23 Unchanged Metoprolol (Metoprolol Succinate ER 50 mg oral tablet, extended release) 1 tab(s) Oral Daily 02-19-23 Unchanged Nitroglycerin (nitroglycerin 0.4 mg sublingual tablet) 1 tab(s) Sublingual Every 5 minutes as needed for Chest Pain not to exceed 3 doses/ 15 min--if pain persists, seek medical attention Call 911 ?? as needed Unchanged [place]-3 Polyunsaturated Fatty Acids (Fish Oil 1200 mg oral capsule) 1 capsule Oral Daily 02-19-23 Unchanged Pancreatin (pancreatin oral tablet) 2 tab(s) Oral 6 times a day Take 2 tables before every meal and snack ?? 02-18-23 Unchanged Pantoprazole (pantoprazole 40 mg oral delayed release tablet) 1 tab(s) Oral Daily 02-19-23 Unchanged Polyethylene Glycol 3350 (MiraLax oral powder for reconstitution) 17 gram Oral Daily as needed Unchanged Testosterone (AndroGel 40.5 mg (1.62%) transdermal gel) 2 pack/packet Topically Daily in the morning 02-19-23 Pharmacy Information [facility] 3: [address], [place] [id number] [phone] ?? What How Much When Comments Stop Taking Durable Medical Equipment (Electric Heating pad) See instructions Dx: Urinary frequency (R35.0) ? Urinary urgency (39.15) Changes per day - 3 SANDY: Lifetime WT: 216lbs ?? Stop Taking Durable Medical Equipment (Medium size Pull ups depends) See instructions Dx: Urinary frequency (R35.0) ? Urinary urgency (39.15) Changes per day - 3 SANDY: Lifetime WT: 216lbs ?? Stop Taking Durable Medical Equipment (Reusable bed pads) See instructions Dx: Urinary frequency (R35.0) ? Urinary urgency (39.15) Changes per day - 3 SANDY: Lifetime WT: 216lbs ?? Stop Taking Hydrochlorothiazide (hydroCHLOROthiazide 12.5 mg oral capsule) 1 capsule Oral Daily Stop Taking Multivitamin Oral Daily Stop Taking [place] Oral Test Results Below is a partial list of the most recent Laboratory test results done prior to this discharge. You may have had other tests and procedures not included in this list. Please discuss all test resultswith your provider. Est Creatinine Clearance - 91.75 mL/min (02/16/2023) [address] (02/12/2023) ? ?Surgical Pathology - Patient Name: WOOD RIOS
Lab
Patient : 1955 (Age: 67)
Collection Date: 02/12/2023
Accession Date: 02/13/2023
Sign Out Date: 02/17/2023

<br/ >Tissue Source:
1:GALLBLADDER

Final Diagnosis:<br/&g t;Gallbladder, cholecystectomy:
- Chronic cholecystitis with cholelithiasis.

Primary Pathologist:Timmy Henry M.D.
electronically signed out by: Timmy Henry M.D. / FAMILIA

Gross Description:
Labeled gallbladder . Received in formalin is an intact 10.5 x 3.5 x 2.5 cm gallbladder with up to 1.5 cm of attached patent cystic duct with an average diameter of 0.4 cm. The serosa is dusky purple, smooth to focally roughened and congested. A pericystic lymph node is not grossly identified. Upon opening the gallbladder contains dark green viscous bile and multiple hard, black, faceted choleliths aggregatingto 3 cm. There are no choleliths noted separate in the container. The mucosa isdark green, coarsely trabeculated and displays focal, mild erosion and the wall thickness averages 0.3 cm. There are no areas suspicious for perforation or discrete mass lesions grossly identified. Group Practice Pediatrician sections are submitted in 1 cassette.
1-shaved cystic duct and gallbladder wall, 4 pieces. ([place])*

Phone #: [phone], On-Call Pathologist: [id number] Basic Metabolic Panel (02/08/2023) ???Sodium - 137 mmol/L???Potassium - 4.2 mmol/L???Chloride - 101 mmol/L???Bicarbonate Level - 26 mmol/L???Anion Gap - 10???Glucose Level - 103 mg/dL???BUN - 11 mg/dL???Creatinine-Blood - 0.9 mg/dL???Estimated GFR Creatinine - 90 ML/MIN/1.73 M2???Calcium - 8.5 mg/dL BUN (02/18/2023) ???BUN - 15 mg/dL CA 19-9 (02/07/2023) ? ?CA19-9 - <2 U/mL Calcium Level (02/10/2023) ???Calcium - 8.4 mg/dL CBC (02/13/2023) ???WBC - 10.8 k/mm3???RBC - 5.22 m/mm3???Hgb - 16.0 Gm/dL???Hct - 46.7 %???MCV - 89.5 femtoliters???MCH - 30.7 pg???MCHC - 34.3 g/dL???Platelet Count - 193 k/mm3???RDW-SD - 40.2 femtoliters???MPV - 9.3 femtoliters???Nucleated RBC (Automated) - 0.0 #/100 WBC'S???Abs. NRBC - 0.0 k/mm3 CBC w/ Differential (02/18/2023) ???WBC - 7.0 k/mm3???RBC - 4.64 m/mm3???Hgb - 14.3 Gm/dL???Hct - 41.8 %???MCV - 90.1 femtoliters???MCH - 30.8 pg???MCHC - 34.2 g/dL???Platelet Count - 243 k/mm3???RDW-SD - 39.8 femtoliters???MPV - 9.4 femtoliters???Nucleated RBC (Automated) - 0.0 #/100 WBC'S???Abs. NRBC - 0.0 k/mm3???Abs. Neut - 4.0 k/mm3???Abs. Lymph - 1.9 k/mm3???Abs. [place] - 0.7 k/mm3???Abs. Eo - 0.3 k/mm3???Abs. Baso - 0.1 k/mm3???Neut % - 57.0 %???Lymph % - 26.8 %???[place] % - 9.9 %???Eos % - 4.4 %???Baso % - 1.0 %???Imm Gran- 0.9 %???Abs. Imm Gran - 0.1 k/mm3 Comprehensive Metabolic Panel (02/12/2023) ???Sodium - 137 mmol/L???Potassium - 4.1 mmol/L???Chloride - 102 mmol/L???Bicarbonate Level - 26 mmol/L???Anion Gap - 9???Glucose Level - 94 mg/dL???BUN - 12 mg/dL???Creatinine-Blood - 0.9 mg/dL???Estimated GFR Creatinine - 90 ML/MIN/1.73 M2???Calcium - 8.8 mg/dL???Protein, Total - 6.0 Gm/dL???Album in - 3.7 Gm/dL???AG Ratio - 1.6???Alkaline Phosphatase - 133 units/L???AST (SGOT) - 106 units/L???ALT (SGPT) - 143 units/L???Bilirubin, Total - 1.2 mg/dL COVID-19 (Novel Coronavirus), Rapid PCR (02/07/2023) ???COVID-19 by RT-PCR - NEGATIVE Creatinine (02/18/2023) ???Creatinine-Blood - 0.8 mg/dL???Estimated GFR Creatinine - 97 ML/MIN/1.73 M2 Electrolytes (02/13/2023) ???Sodium - 138 mmol/L???Potassium - 4.4 mmol/L???Chloride - 102 mmol/L???Bicarbonate Level - 19 mmol/L???Anion Gap - 17 Glucose Level (02/10/2023) ???Glucose Level - 96 mg/dL Hepatic Function Panel (02/18/2023) ???Protein, Total - 5.7 Gm/dL???Albumin - 3.4 Gm/dL???Alkaline Phosphatase - 186 units/L???AST (SGOT) - 65 units/L???ALT (SGPT) - 116 units/L???Bilirubin, Total - 0.7 mg/dL???Bilirubin, Direct - 0.3 mg/dL???Bilirubin, Indirect - 0.4 mg/dL Hold Blue Top Tube (02/07/2023) ???Hold Blue Top - SPECIMEN DISCARDED AFTER 4 HOURS. Ionized Calcium (02/18/2023) ???Calcium, Ionized pH Corrected - 1.24 mmol/L Lactic Acid Level (02/07/2023) ???Lactate - 2.0 mmol/L LFT's (02/13/2023) ???Protein, Total - 6.5 Gm/dL???Albumin - 4.1 Gm/dL???Alkaline Phosphatase - 168 units/L???AST (SGOT) - 108 units/L???ALT (SGPT) - 149 units/L???Bilirubin, Total - 1.2 mg/dL???Bilirubin, Direct - 0.6mg/dL???Bilirubin, Indirect - 0.6 mg/dL Lipase (02/10/2023) ???Lipase - 25 units/L Lytes (02/18/2023) ???Sodium - 140 mmol/L???Potassium - 4.1 mmol/L???Chloride - 104 mmol/L???Bicarbonate Level - 24 mmol/L???Anion Gap - 12 Magnesium Level (02/18/2023) ???Magnesium - 1.8 mg/dL Phosphorus Level (02/18/2023) ???Phosphorus - 3.8 mg/dL PROCALCITONIN, SERUM (02/07/2023) ???Procalcitonin - 0.09 ng/mL Troponin T, High Sensitivity (02/13/2023) ???High Sensitivity Troponin (HSTnT) - 10 ng/L Urinalysis Reflex Culture (02/07/2023) ???Appear/Color, Urine - DARK YELLOW???Clarity - CLEAR???Specific [place], Urine - 1.027???pH, Urine - 6.0???Albumin, Urine - TRACE???Glucose, Urine - NEGATIVE???Ketones, Urine - NEGATIVE???Bilirubin, Urine - 1+???Hemoglobin, Urine - NEGATIVE???Nitrite, Urine - NEGATIVE???Leukocyte, Urine - NEGATIVE ???Urobilinogen - 6 mg/dL???WBC's, Urine - NONE SEEN???RBC's, Urine - NONE SEEN???Squamous Epith - 1 /HPF???Amorphous Crystals - MODERATE???Mucus - SLIGHT???Culture Indication - CULTURE NOT INDICATED Allergies (NKA means No Known Allergies) Contrast Dye??(hives) Problems Active Problems??(23) Arthralgia?? Benign prostatic hyperplasia?? CAD (coronary artery disease)?? Chronic kidney disease (CKD)?? Concentration deficit?? Constipation, chronic?? Depression, major, in remission?? GERD (gastroesophageal reflux disease)?? Hemoptysis?? Hemorrhoids?? History of myocardial infarction?? History of rectal cancer?? Hyperlipidemia?? Hypertension?? Hypogonadism male?? Leg cramps?? Metatarsalgia of both feet?? Nephrolithiasis?? Obese class I?? WILIAM on CPAP?? Plantar fasciitis, left?? Sleep apnea?? Testosterone deficiency?? Education Materials Below is the list of Educational Leaflet Providered with your Discharge Instructions. Valuables and Belongings I fully understand and agree that [facility] accepts no responsibility for all my personal property including clothing, toilet articles, radios, jewelry, dentures, hearing aids, rings, money, or any other property that is in my possession or is brought to me after admission. I understand certain valuables may be placed in a hospital safe for a short period of time. I understand that the hospital is not liable for loss or damage due to accident, fire, or other natural occurrence while said property is in the safe. I accept full responsibility for any personal property that I keep with me, and will not hold the hospital responsible in case of loss or disappearance. I acknowledge that i have been encouraged to send valuables and belongings home. ?? No Valuables/Belongings: No valuables/belongings present Review of Valuable and Belonging List: With patient Possessions released to: none to preop Date for Pt to Sign Valuables/Belongings: 02/12/23 19:28:00 ?? Valuables & Belongings ?? Clothes Electronic devices Jewelry Monetary Items Personal devices Miscellaneous Medications (Valuables) Valuables at Bedside Pants, Shirt, Other: cell phone ? Valuables Sent Home ? Valuables Sent to Security ? Other Discharge Information ? Case Management Discharge Plan?? Discharge Plan?? Discharge Agency Information?? Discharge Level of Care at Discharge: Homehealth/VNA Name of Agency #1: [facility] Mode of Transportation Arranged: car Agency Senior Net Web Developer #1: Intake Discharge VNA/Hospice/Home Care: [facility] [phone] Service Categories #1: Jail, Other: Drain Care ?? Service Comments #1: The VNA will call you to set up an appointment. Please call the agency with any questions [phone] ?? Pulmonary Rehab Status?? Pulmonary Rehab Discharge Status?? CPAP/BiPAP Mask Type: Full CPAP/BiPAP Mask Size: Large Respiratory Rate: 17 br/min ? Common Emergency Awareness Tips IS IT A STROKE? Act FAST and Check for these signs: FACE Does the face look uneven? ARM Does one arm drift down? SPEECH Does their speech sound strange? TIME Call at any sign of stroke ?? Heart Attack Signs Chest discomfort: Most heart attacks involve discomfort in the center of the chest and lasts more than a few minutes, or goes away and comes back. It can feel like uncomfortable pressure, squeezing, fullness or pain. Discomfort in upper body: Symptoms can include pain or discomfort in one or both arms, back, neck, jaw or stomach. Shortness of breath: With or without discomfort. Other signs: Breaking out in a cold sweat, nausea, or lightheaded. Remember, MINUTES DO MATTER. If you experience any of these heart attack warning signs, call to get immediate medical attention! ?? Smoking can increase your chances of developing chronic health problems and can cause harmful effects to other family members in your house. If you smoke, you are strongly encouraged to quit. Please call [facility] at [phone] or [phone] ([phone]) or log in to [email or web address] for referrals to smoking cessation programs. ?? 059 Suicide & Crisis Lifeline is available 11/01 if you or someone you know needs to find a reason to keep living. By calling 183 you'll be connected to a skilled, trained counselor at a crisis center in your area. INPATIENT DISCHARGE INSTRUCTIONS SIGNATURE PAGE LIAMWOOD HAYDEN Location:[facility] Registration Date and Time:02/07/2023 11:06 EDT Primary Care Physician: Magaly BARNARD, Min Blackman, Attending Physician: Prateek Kenyon MD, I WOOD RIOS, have received the above patient education materials/instructions and have verbalized understanding. If ambulance or transport services are being used I further acknowledge being given a choice of service. ?? If you need to contact me, please call me at this number: . Patient/Group Practice Pediatrician Name: Patient/Group Practice Pediatrician Signature: Relationship to Patient: Witness Name/Signature: Date: Patient Care team information Care Team Personnel Name: Sasha Queen RN Position: [facility] RN Member Role: Primary Care Nurse Name: Charleen Neri RN Position: [facility] RN Member Role: Primary Care Nurse Name: Min Mckenzie MD Position: [facility] Physician - Primary Care Member Role: PCP Address: Address: [address] [place] [id number]- Name: Vianey Gonzales NP Position: [facility] Associate Professional Member Role: Primary Care Nurse Address: Address: [address] [place] [address] Trauma [place] [address]- Name: Felecia Villegas LPN Position: [facility] RN Member Role: Primary Care Nurse Name: Geovanna Kumari RN Position: [facility] RN Member Role: Primary Care Nurse Name: Tali Paul RN Position: [facility] RN Member Role: Primary Care Nurse Name: Alicia Croft RN Position: [facility] RN Member Role: Primary Care Nurse Name: Luisa Mitchell RN Position: [facility] RN Member Role: Primary Care Nurse Name: Nirav Nicholson RN Position: [facility] RN Member Role: Primary Care Nurse Name: Mara Miranda RN Position: [facility] RN Member Role: Primary Care Nurse Name: Mara Daly RN Position: [facility] ED RN W/OE and Tasks Member Role: Primary Care Nurse Name: Emy Balderas LPN Position: [facility] RN Member Role: Primary Care Nurse Name: Fidelina Kat RN Position: [facility] ED RN W/OE and Tasks Member Role: Patient Care Provider Name: Bridgett Elizabeth DO Position: [facility] Resident Member Role: ED Resident Address: Address: [address] [place] [address]- Name: Bob Elizondo Position: [facility] ED TA [facility] Member Role: Contract Implementation Analyst Name: Yvon Kay Position: [facility] ED OA Charge Member Role: ED Associate Name: Laith Orozco MD Position: [facility] ED Medicine MD Address: Address: [address] [place] [address]- Care Team Related Persons Name: TACOS RIOS Address: [address] [place] [address] [address]
--- OUTSIDE RECORDS SUMMARY | 2024-01-05 09:59 | XMS_ITS | Continuity of Care Document ---
Author Organization [facility] Address [address] [place] [address] [address] [place] [address]- Care Team Providers Care Product Safety Lead Name Role Phone Magaly BARNARD, Min Blackman Primary Care Physician [facility] Date[facility]): 04/13/23 - 05/13/23 [facility] [address] [place] [address]- Allergies, Adverse Reactions, Alerts Substance Reaction Severity [...] 3Location History: [facility] 4Result Comment: [id number] 5Location History: [facility] 6Location History: [...] tablet, 3 Refills, Maintenance, 02/04/23 9:18:00 EDT, [facility] #[id number], 175.3, cm, 02/04/23 8:41:00 EDT, Height Start Date: 02/04/23 Status: Ordered FLUoxetine 20 mg oral capsule 20 mg, 1, capsule, By Mouth, Daily, # 90 capsule, Refills 1, Tot. Refills 1, Maintenance, 04/27/23 14:10:00 EST, Route to Pharmacy Electronically, [facility] #[id number], Partial fill upon patient request if the prescription is for a schedule II... Start Date: 04/27/23 Status: Ordered gemfibrozil 600 mg oral tablet 1, tablet, By Mouth, 2 times a day, # 180 tablet, Refills 3, Tot. Refills 3, Maintenance, 02/04/23 9:18:00 EDT, Route to Pharmacy Electronically, [facility] #[id number], 175.3, cm, 02/04/23 8:41:00 EDT, Height Start Date: 02/04/23 Status: Ordered losartan 50 mg oral tablet 50 mg, 1, tablet, By Mouth, Daily, # 90 tablet, Refills 3, Tot. Refills 3, Maintenance, 02/04/23 9:19:00 EDT, Route to Pharmacy Electronically, [facility] #[id number], Partial fill upon patient request if the prescription is for a schedule II opi... Start Date: 02/04/23 Stop Date: 01/30/24 Status: Ordered Metoprolol Succinate ER 50 mg oral tablet, extended release 1 tablet, By Mouth, Daily, # 90 tablet, 3 Refills, Maintenance, 02/04/23 9:18:00 [id number], 175.3, cm, 02/04/23 8:41:00 EDT, Height Start Date: 02/04/23 Status: Ordered nitroglycerin 0.4 mg sublingual tablet 1 tablet = 0.4 mg, Sublingual, Every 5 minutes, PRN Chest Pain, not to exceed 3 doses/15 min--if pain persists, seek medical attention Call 911, # 60 tablet, 11 Refills, Maintenance, 11/23/17 11:14:25 EDT Start Date: 11/23/17 Status: Ordered pantoprazole 40 mg oral delayed release tablet 1 tablet, By Mouth, Daily, # 90 tablet, 3 Refills, Maintenance, 02/04/23 9:18:00 EDT, 175.3, cm, 02/04/23 8:41:00 EDT, Height Start Date: 02/04/23 Status: Ordered saw palmetto 320 mg with phytosterols oral capsule 1 capsule = 320 mg, By Mouth, 2 times a day, # 180 capsule, 0 Refills, Maintenance, 04/01/23 15:46:00 EDT, Capsule, [facility], Partial fill upon patient request if the prescription is for a schedule II opioid drug., 175, cm, 03/20/23 22... Start Date: 04/01/23 Status: Ordered ZyrTEC 10 mg oral tablet See Instructions, 1 tablet By Mouth [address] scan, # 1 tablet, 0 Refills, Maintenance, 04/01/23 15:33:00 EDT, Tablet, [facility], Partial fill upon patient request if the prescription is for a schedule II opioid drug., 175, cm... Start Date: 04/01/23 Status: Ordered Problem List Condition Confirmation Course Effective Dates Status H ealth Status Informant Benign prostatic hyperplasia Confirmed Active Constipation, chronic Confirmed Active Chronic kidney disease (CKD) 1 Confirmed Active CAD (coronary artery disease) 2 Confirmed Active Leg cramps Confirmed Active Testosterone deficiency Confirmed Active Concentration deficit Confirmed Active Gallstone pancreatitis Confirmed Active GERD (gastroesophageal reflux disease) Confirmed Active JULIET (generalized anxiety disorder) Confirmed Active Hemoptysis Confirmed Active Hemorrhoids 3 [...] Care team information Care Team Personnel Name: Dawna Oshea RN Position: [facility] RN Member Role: Primary Care Nurse Name: Teresa Carey RN Position: [facility] RN Member Role: Primary Care Nurse Name: Sasha Queen RN Position: [facility] RN Member Role: Primary Care Nurse Name: Charleen Neri RN Position: [facility] RN Member Role: Primary Care Nurse Name: Min Mckenzie MD Position: [facility] Physician - Primary Care Member Role: PCP Address: Address: [address] [place] [address]- Name: Vianey Gonzales NP Position: [facility] Associate Professional Member Role: Primary Care Nurse Address: Address: [address] [place] [address] Trauma and [place] [address]- Name: Felecia Villegas LPN Position: [facility] RN Member Role: Primary Care Nurse Name: Maria C Pearson RN Position: [facility] RN Member Role: Primary Care Nurse Name: Geovanna Kumari RN Position: [facility] RN Member Role: Primary Care Nurse Name: Shi Dawn RN Position: [facility] RN Member Role: Primary Care Nurse Name: Tali Paul RN Position: [facility] RN Member Role: Primary Care Nurse Name: Alicia Croft RN Position: [facility] RN Member Role: Primary Care Nurse Name: Aicha Lai RN Position: [facility] RN Member Role: Primary Care Nurse Name: Dino Fleming RN Position: [facility] RN Member Role: Primary Care Nurse Name: Luisa Mitchell RN Position: [facility] RN Member Role: Primary Care Nurse Name: Storm Gutierrez RN Position: [facility] RN Member Role: Primary Care Nurse Name: Nirav Nicholson RN Position: [facility] RN Member Role: Primary Care Nurse Name: Elaine Clark RN Position: [facility] RN Member Role: Primary Care Nurse Name: Mara Miranda RN Position: [facility] RN Member Role: Primary Care Nurse Name: Mara Daly RN Position: [facility] ED RN W/OE and Tasks Member Role: Primary Care Nurse Name: Nellie Vivas RN Position: [facility] RN Member Role: Primary Care Nurse Name: Emy Balderas LPN Position: [facility] RN Member Role: Primary Care Nurse Name: Caitlyn Anderson RN Position: [facility] RN Member Role: Primary Care Nurse Name: Lelia Clarke RN Position: [facility] RN Member Role: Primary Care Nurse Care Team Related Persons Name: TACOS VASQUEZ Address: [address] [address]
--- OUTSIDE RECORDS SUMMARY | 2024-01-05 09:59 | XMS_ITS | Continuity of Care Document ---
Author Organization [facility] Address [address] [place] [address] [address] [place] [address]- Care Team Providers Care Wet Washer Machine Name Role Phone Magaly BARNARD, Min Blackman Primary Care Physician [facility] Date[facility]s): 04/16/23 - 05/16/23 [facility] [address] [place] [address]- Allergies, Adverse Reactions, Alerts Substance Reaction Severity [...] 3Location History: [facility] 4Result Comment: [id number] 5Location History: [facility] 6Location History: [...] tablet, 3 Refills, Maintenance, 02/04/23 9:18:00 EDT, [facility] #[id number], 175.3, cm, 02/04/23 8:41:00 EDT, Height Start Date: 02/04/23 Status: Ordered FLUoxetine 20 mg oral capsule 20 mg, 1, capsule, By Mouth, Daily, # 90 capsule, Refills 1, Tot. Refills 1, Maintenance, 04/27/23 14:10:00 EST, Route to Pharmacy Electronically, [facility] #[id number], Partial fill upon patient request if the prescription is for a schedule II... Start Date: 04/27/23 Status: Ordered gemfibrozil 600 mg oral tablet 1, tablet, By Mouth, 2 times a day, # 180 tablet, Refills 3, Tot. Refills 3, Maintenance, 02/04/23 9:18:00 EDT, Route to Pharmacy Electronically, [facility] #[id number], 175.3, cm, 02/04/23 8:41:00 EDT, Height Start Date: 02/04/23 Status: Ordered losartan 50 mg oral tablet 50 mg, 1, tablet, By Mouth, Daily, # 90 tablet, Refills 3, Tot. Refills 3, Maintenance, 02/04/23 9:19:00 EDT, Route to Pharmacy Electronically, [facility] #[id number], Partial fill upon patient request if the prescription is for a schedule II opi... Start Date: 02/04/23 Stop Date: 01/30/24 Status: Ordered Metoprolol Succinate ER 50 mg oral tablet, extended release 1 tablet, By Mouth, Daily, # 90 tablet, 3 Refills, Maintenance, 02/04/23 9:18:00 [id number], 175.3, cm, 02/04/23 8:41:00 EDT, Height Start [...] 0 Refills, Maintenance, 04/01/23 15:46:00 EDT, Capsule, [facility], Partial fill upon patient request if the prescription is for a schedule II opioid drug., 175, cm, 03/20/23 22... Start Date: 04/01/23 Status: Ordered ZyrTEC 10 mg oral tablet See Instructions, 1 tablet By Mouth [address] scan, # 1 tablet, 0 Refills, Maintenance, 04/01/23 15:33:00 EDT, Tablet, [facility], Partial fill upon patient [...] Team Personnel Name: Dawna Oshea RN Position: [facility] RN Member Role: Primary Care Nurse Name: Teresa Carey RN Position: [facility] RN Member Role: Primary Care Nurse Name: Sasha Queen RN Position: [facility] RN Member Role: Primary Care Nurse Name: Charleen Neri RN Position: [facility] RN Member Role: Primary Care Nurse Name: Min Mckenzie MD Position: [facility] Physician - Primary Care Member Role: PCP Address: Address: [address] [place] [address]- Name: Vianey Gonzales NP Position: [facility] Associate Professional Member Role: Primary Care Nurse Address: Address: [address] [place] [address] Trauma and [place] [address]- Name: Felecia Villegas LPN Position: [facility] RN Member Role: Primary Care Nurse Name: Maria C Pearson RN Position: [facility] RN Member Role: Primary Care Nurse Name: Geovanna Kumari RN Position: [facility] RN Member Role: Primary Care Nurse Name: Shi Dawn RN Position: [facility] RN Member Role: Primary Care Nurse Name: Tali Paul RN Position: [facility] RN Member Role: Primary Care Nurse Name: Alicia Croft RN Position: [facility] RN Member Role: Primary Care Nurse Name: Aicha Lai RN Position: [facility] RN Member Role: Primary Care Nurse Name: Dino Fleming RN Position: [facility] RN Member Role: Primary Care Nurse Name: Luisa Mitchell RN Position: [facility] RN Member Role: Primary Care Nurse Name: Storm Gutierrez RN Position: [facility] RN Member Role: Primary Care Nurse Name: Nirav Nicholson RN Position: [facility] RN Member Role: Primary Care Nurse Name: Elaine Clark RN Position: [facility] RN Member Role: Primary Care Nurse Name: Mara Miranda RN Position: [facility] RN Member Role: Primary Care Nurse Name: Mara Daly RN Position: [facility] ED RN W/OE and Tasks Member Role: Primary Care Nurse Name: Nellie Vivas RN Position: [facility] RN Member Role: Primary Care Nurse Name: Emy Balderas LPN Position: [facility] RN Member Role: Primary Care Nurse Name: Caitlyn Anderson RN Position: [facility] RN Member Role: Primary Care Nurse Name: Lelia Clarke RN Position: [facility] RN Member Role: Primary Care Nurse Care Team Related Persons Name: TACOS VASQUEZ Address: [address] [address]
--- OUTSIDE RECORDS SUMMARY | 2024-01-05 09:59 | XMS_ITS | Continuity of Care Document ---
Author Organization [facility] Address [address] [place] [address]- Care Team Providers Care Louver Mortiser Operator Name Role Phone Magaly BARNARD, Min Blackman Primary Care Physician [facility]s): 12/15/22 - 01/14/23 [facility] Adult [address] [place] [address]- Allergies, Adverse Reactions, Alerts Substance Reaction Severity [...] 3Location History: [facility] 4Result Comment: [id number] 5Location History: [facility] 6Location History: [...] tablet, 3 Refills, Maintenance, 08/17/22 11:12:00 EST, [facility] #[id number], 175.3, cm, 08/17/22 10:47:00 EST, Height, 98.4, kg, 09/12/20 8:51:00 EDT, Dry Weight Start Date: 08/17/22 Status: Ordered Electric Heating pad Electric Heating pad, See Instructions, # 1 each, Refills 0, Tot. Refills 0, Maintenance, Dx: Urinary frequency (R35.0) Urinary urgency (39.15) Changes per day - 3 SANDY: Lifetime WT: 216lbs, 01/14/23 12:40:00 EDT, Supply Start Date: 01/14/23 Status: Ordered erythromycin 0.5% ophthalmic ointment 0.5 inches, Eyes, Both, 4 times a day, # 4 Gm, 0 Refills, Maintenance, 10/22/22 10:20:00 EDT, [facility][id number], Partial fill upon patient request if the [...] 08/17/22 11:12:00 EST, Route to Pharmacy Electronically, [facility] #[id number], 175.3, cm, 08/17/22 10:47:00 EST, Height, 98.4, kg, 09/12/20 8:51:00 EDT, D... Start Date: 08/17/22 Status: Ordered hydroCHLOROthiazide 12.5 mg oral capsule 1 capsule, By Mouth, Daily, # 90 capsule, 3 Refills, 08/17/22 11:12:00 EST, [facility] #[id number], 175.3, cm, 08/17/22 10:47:00 EST, Height, 98.4, kg, 09/12/20 8:51:00 EDT, Dry Weight Start Date: 08/17/22 Status: Ordered lisinopril 20 mg oral tablet 1, tablet, By Mouth, Daily, # 90 tablet, Refills 3, Tot. Refills 3, Maintenance, 08/17/22 11:12:00 EST, Route to Pharmacy Electronically, [facility] #[id number], 175.3, cm, 08/17/22 10:47:00 EST, Height, 98.4, [...] opioid drug. Start Date: 10/16/22 Status: Ordered Medium size Pull ups depends Medium size Pull ups depends, See Instructions, # 90 each, Refills 11, Tot. Refills 11, Maintenance, Dx: Urinary frequency (R35.0) Urinary urgency (39.15) Changes per day - 3 SANDY: Lifetime WT: 216lbs, 01/14/23 12:40:00 EDT, Supply Start Date: 01/14/23 Status: Ordered Metoprolol Succinate ER 50 mg oral tablet, extended release 1 tablet, By Mouth, Daily, # 90 tablet, 3 Refills, Maintenance, 08/17/22 11:12:00 EST, [facility] #[id number], 175.3, cm, 08/17/22 10:47:00 EST, Height, 98.4, [...] Dry Weight Start Date: 08/17/22 Status: Ordered Reusable bed pads Reusable bed pads, See Instructions, # 2 each, Refills 1, Tot. Refills 1, Maintenance, Dx: Urinary frequency (R35.0) Urinary urgency (39.15) Changes per day - 3 SANDY: Lifetime WT: 216lbs, 01/14/23 12:39:00 EDT, Supply Start Date: 01/14/23 Status: Ordered Saw [place] By Mouth, 0 Refills, Maintenance, 08/17/22 11:05:00 [...] Active Sleep apnea Confirmed Active 1STAGE 2 [address]24 angioplasty with atherectomy. 2004 angioplasty with stent 3WITH BLEEDING Social History Social History Type Response Smoking Status Never smoker entered on: 07/12/14 Sex Patient Care team information Care Team Personnel Name: Charleen Neri RN Position: [facility] RN Member Role: Primary Care Nurse Name: Min Mckenzie MD Position: [facility] Physician - Primary Care Member Role: PCP Address: Address: [address] [place] [phone]- [place] Name: Vianey Gonzales NP Position: [facility] Associate Professional Member Role: Primary Care Nurse Address: Address: [address] [place] [address] Trauma and [place] [address]- [place] Name: Mara Daly RN Position: [facility] ED RN W/OE and Tasks Member Role: Primary Care Nurse Care Team Related Persons Name: CIROTACOS POOL Address: home [address] [place] [id number]
--- OUTSIDE RECORDS SUMMARY | 2024-01-05 09:59 | XMS_ITS | Continuity of Care Document ---
Author Organization [facility] Address [address] [place] [address]- Care Team Providers Care Shelter Case Manager Name Role Phone Min Mckenzie MD Primary Care Physician [place] [facility] [place]12[place]23 - 02/11/23 [facility] Adult [address] [place] [address]- Allergies, Adverse Reactions, Alerts Substance Reaction Severity [...] 3Location History: [facility] 4Result Comment: [id number] 5Location History: [facility] 6Location History: [...] tablet, 3 Refills, Maintenance, 02/04/23 9:18:00 EDT, [facility] #[id number], 175.3, cm, 02/04/23 8:41:00 EDT, Height Start Date: 02/04/23 Status: Ordered erythromycin 0.5% ophthalmic ointment 0.5 inches, Eyes, Both, 4 times a day, # 4 Gm, 0 Refills, Maintenance, 10/22/22 10:20:00 EDT, [facility], [facility][id number], Partial fill upon patient request if the [...] 02/04/23 9:18:00 EDT, Route to Pharmacy Electronically, [facility] #[id number], 175.3, cm, 02/04/23 8:41:00 EDT, Height Start Date: 02/04/23 Status: Ordered hydroCHLOROthiazide 12.5 mg oral capsule 1 capsule, By Mouth, Daily, # 90 capsule, 3 Refills, 02/04/23 9:18:00 EDT, [facility] #[id number], 175.3, cm, 02/04/23 8:41:00 EDT, Height Start Date: 02/04/23 Status: Ordered losartan 50 mg oral tablet 50 mg, 1, tablet, By Mouth, Daily, # 90 tablet, Refills 3, Tot. Refills 3, Maintenance, 02/04/23 9:19:00 EDT, Route to Pharmacy Electronically, [facility] #[id number], Partial fill upon patient request if the [...] tablet, 3 Refills, Maintenance, 02/04/23 9:18:00 EDT, [facility] #[id number], 175.3, cm, 02/04/23 8:41:00 EDT, Height Start [...] Height Start Date: 02/04/23 Status: Ordered Saw [place] By Mouth, 0 Refills, Maintenance, 08/17/22 11:05:00 [...] Team Personnel Name: Sasha Queen RN Position: [facility] RN Member Role: Primary Care Nurse Name: Charleen Neri RN Position: [facility] RN Member Role: Primary Care Nurse Name: Min Mckenzie MD Position: [facility] Physician - Primary Care Member Role: PCP Address: Address: [address] [place] [phone]- [place] Name: Vianey Gonzales NP Position: [facility] Associate Professional Member Role: Primary Care Nurse Address: Address: [address] [place] [address] Trauma and [place] [address]- Name: Felecia Villegas LPN Position: [facility] RN Member Role: Primary Care Nurse Name: Alicia Croft RN Position: [facility] RN Member Role: Primary Care Nurse Name: Luisa Mitchell RN Position: [facility] RN Member Role: Primary Care Nurse Name: Nirav Nicholson RN Position: [facility] RN Member Role: Primary Care Nurse Name: Mara Miranda RN Position: [facility] RN Member Role: Primary Care Nurse Name: Mara Daly RN Position: [facility] ED RN W/OE and Tasks Member Role: Primary Care Nurse Name: Emy Balderas LPN Position: [facility] RN Member Role: Primary Care Nurse Care Team Related Persons Name: TACOS VASQUEZ Address: [address] [address]
--- OUTSIDE RECORDS SUMMARY | 2024-01-05 09:59 | XMS_ITS | Continuity of Care Document ---
Author Organization [facility] Address [address] [place] [address]- Care Team Providers Care Cigarette Carton Sealer Name Role Phone Magaly BARNARD, Min Blackman Primary Care Physician [facility] 12/31/22 - 01/30/23 [facility] Adult [address] [place] [address]- Allergies, Adverse Reactions, Alerts Substance Reaction Severity [...] 3Location History: [facility] 4Result Comment: [id number] 5Location History: [facility] 6Location History: [...] tablet, 3 Refills, Maintenance, 08/17/22 11:12:00 EST, [facility] #[id number], 175.3, cm, 08/17/22 10:47:00 EST, Height, 98.4, [...] Gm, 0 Refills, Maintenance, 10/22/22 10:20:00 EDT, [facility][id number], Partial fill upon patient request if the [...] 08/17/22 11:12:00 EST, Route to Pharmacy Electronically, [facility] #[id number], 175.3, cm, 08/17/22 10:47:00 EST, Height, 98.4, kg, 09/12/20 8:51:00 EDT, D... Start Date: 08/17/22 Status: Ordered hydroCHLOROthiazide 12.5 mg oral capsule 1 capsule, By Mouth, Daily, # 90 capsule, 3 Refills, 08/17/22 11:12:00 EST, [facility] #[id number], 175.3, cm, 08/17/22 10:47:00 EST, Height, 98.4, kg, 09/12/20 8:51:00 EDT, Dry Weight Start Date: 08/17/22 Status: Ordered lisinopril 20 mg oral tablet 1, tablet, By Mouth, Daily, # 90 tablet, Refills 3, Tot. Refills 3, Maintenance, 08/17/22 11:12:00 EST, Route to Pharmacy Electronically, [facility] #[id number], 175.3, cm, 08/17/22 10:47:00 EST, Height, 98.4, [...] tablet, 3 Refills, Maintenance, 08/17/22 11:12:00 EST, [facility] #[id number], 175.3, cm, 08/17/22 10:47:00 EST, Height, 98.4, [...] Supply Start Date: 01/14/23 Status: Ordered Saw [place] By Mouth, 0 Refills, Maintenance, 08/17/22 11:05:00 [...] Active Sleep apnea Confirmed Active 1STAGE 2 [address] angioplasty with atherectomy. 2004 angioplasty with stent 3WITH BLEEDING Social History Social History Type Response Smoking Status Never smoker entered on: 07/12/14 Sex Patient Care team information Care Team Personnel Name: Charleen Neri RN Position: [facility] RN Member Role: Primary Care Nurse Name: Min Mckenzie MD Position: [facility] Physician - Primary Care Member Role: PCP Address: Address: [address] [place] [phone]- [place] Name: Vianey Gonzales NP Position: [facility] Associate Professional Member Role: Primary Care Nurse Address: Address: [address] [place] [address] Trauma [place] [address]- [place] Name: Mara Daly RN Position: [facility] ED RN W/OE and Tasks Member Role: Primary Care Nurse Care Team Related Persons Name: CIROTACOS POOL Address: home [address] [place] [id number]
--- OUTSIDE RECORDS SUMMARY | 2024-01-05 10:00 | XMS_ITS | Continuity of Care Document ---
Author Organization [facility] As on license of [facility] Address [address] [place] [address] [address] [place] [address]- Care Team Providers Care Demand Equipment Repairer Name Role Phone Magaly BARNARD, Min Blackman Primary Care Physician [phone] [facility]/23 - 04/29/[address] [place] [address]- Attending Physician: Prateek Kenyon MD Allergies, Adverse [...] 3Location History: [facility] 4Result Comment: [id number] 5Location History: [facility] 6Location History: [...] tablet, 3 Refills, Maintenance, 02/04/23 9:18:00 EDT, [facility] #[id number], 175.3, cm, 02/04/23 8:41:00 EDT, Height Start Date: 02/04/23 Status: Ordered FLUoxetine 20 mg oral capsule 20 mg, 1, capsule, By Mouth, Daily, # 90 capsule, Refills 1, Tot. Refills 1, Maintenance, 04/27/23 14:10:00 EST, Route to Pharmacy Electronically, [facility] #[id number], Partial fill upon patient request if the prescription is for a schedule II... Start Date: 04/27/23 Status: Ordered gemfibrozil 600 mg oral tablet 1, tablet, By Mouth, 2 times a day, # 180 tablet, Refills 3, Tot. Refills 3, Maintenance, 02/04/23 9:18:00 EDT, Route to Pharmacy Electronically, [facility] #[id number], 175.3, cm, 02/04/23 8:41:00 EDT, Height Start Date: 02/04/23 Status: Ordered losartan 50 mg oral tablet 50 mg, 1, tablet, By Mouth, Daily, # 90 tablet, Refills 3, Tot. Refills 3, Maintenance, 02/04/23 9:19:00 EDT, Route to Pharmacy Electronically, [facility] #[id number], Partial fill upon patient request if the prescription is for a schedule II opi... Start Date: 02/04/23 Stop Date: 01/30/24 Status: Ordered Metoprolol Succinate ER 50 mg oral tablet, extended release 1 tablet, By Mouth, Daily, # 90 tablet, 3 Refills, Maintenance, 02/04/23 9:18:00 EDT, [facility] #[id number], 175.3, cm, 02/04/23 8:41:00 EDT, Height Start [...] 0 Refills, Maintenance, 04/01/23 15:46:00 EDT, Capsule, [facility], Partial fill upon patient request if the prescription is for a schedule II opioid drug., 175, cm, 03/20/23 22... Start Date: 04/01/23 Status: Ordered ZyrTEC 10 mg oral tablet See Instructions, 1 tablet By Mouth [address] scan, # 1 tablet, 0 Refills, Maintenance, 04/01/23 15:33:00 EDT, Tablet, [facility], Partial fill upon patient [...] oldest [Reference Range]: 1 Height 175 cm (04/22/23 3:15 PM) Weight 89.9 kg (04/22/23 3:15 PM) Pulse Rate [55-90 bpm] 91 bpm *H* (04/22/23 3:15 PM) Body Mass Index [18.5-24.99 kg/m2] 29.36 kg/m2 *H* (04/22/23 3:15 PM) Blood Pressure [90-138/55-84 mm Hg] 138/ 77mm Hg (04/22/23 3:15 PM) Respiratory Rate [16-30 br/min] 106 br/m in *H* (04/22/23 3:15 PM) Temperature [96.8-100.4 DegF] 96.6 DegF *L* (04/22/23 3:15 PM) Blood pressure sites Arm, left (04/22/23 3:15 PM) Temperature Route Temporal (04/22/23 3:15 PM) Weight Obtained Via Standing scale (04/22/23 3:15 PM) Social History Social History Type Response Smoking Status Never smoker entered on: 07/12/14 Sex Patient Care team information Care Team Personnel Name: Dawna Oshea RN Position: [facility] RN Member Role: Primary Care Nurse Name: Teresa Carey RN Position: [facility] RN Member Role: Primary Care Nurse Name: Sasha Queen RN Position: [facility] RN Member Role: Primary Care Nurse Name: Charleen Neri RN Position: S RN Member Role: Primary Care Nurse Name: Min Mckenzie MD Position: [facility] Physician - Primary Care Member Role: PCP Address: Address: [address] [facility] [place] [address]- [place] Name: Vianey Gonzales NP Position: [facility] Associate Professional Member Role: Primary Care Nurse Address: Address: [address] [place] [address] Trauma and [place] [address]- [place] Name: Felecia Villegas LPN Position: [facility] RN Member Role: Primary Care Nurse Name: Maria C Pearson RN Position: [facility] RN Member Role: Primary Care Nurse Name: Geovanna Kumari RN Position: [facility] RN Member Role: Primary Care Nurse Name: Shi Dawn RN Position: [facility] RN Member Role: Primary Care Nurse Name: Tali Paul RN Position: [facility] RN Member Role: Primary Care Nurse Name: Alicia Croft RN Position: [facility] RN Member Role: Primary Care Nurse Name: Aicha Lai RN Position: [facility] RN Member Role: Primary Care Nurse Name: Dino Fleming RN Position: [facility] RN Member Role: Primary Care Nurse Name: Luisa Mitchell RN Position: [facility] RN Member Role: Primary Care Nurse Name: Storm Gutierrez RN Position: [facility] RN Member Role: Primary Care Nurse Name: Nirav Nicholson RN Position: [facility] RN Member Role: Primary Care Nurse Name: Elaine Clark RN Position: [facility] RN Member Role: Primary Care Nurse Name: Mara Miranda RN Position: [facility] RN Member Role: Primary Care Nurse Name: Mara Daly RN Position: [facility] ED RN W/OE and Tasks Member Role: Primary Care Nurse Name: Nellie Vivas RN Position: [facility] RN Member Role: Primary Care Nurse Name: Emy Balderas LPN Position: [facility] RN Member Role: Primary Care Nurse Name: Caitlyn Anderson RN Position: [facility] RN Member Role: Primary Care Nurse Name: Lelia Clarke RN Position: [facility] RN Member Role: Primary Care Nurse Care Team Related Persons Name: MIGUELINATACOS Rogel Address: [address] [address]
--- OUTSIDE RECORDS SUMMARY | 2024-01-05 10:00 | XMS_ITS | Continuity of Care Document ---
Author Organization [facility] Address [address] [place] [address]- Care Team Providers Care Veterinarian Name Role Phone Magaly BARNARD, Min Blackman Primary Care Physician [facility] 10[facility]16[facility]22 - 11/15/22 [facility] [address] [place] [address]- Allergies, Adverse Reactions, Alerts Substance Reaction Severity [...] 3Location History: [facility] 4Result Comment: [id number] 5Location History: [facility] 6Location History: [...] tablet, 3 Refills, Maintenance, 08/17/22 11:12:00 EST, [facility] #[id number], 175.3, cm, 08/17/22 10:47:00 EST, Height, 98.4, kg, 09/12/20 8:51:00 EDT, Dry Weight Start Date: 08/17/22 Status: Ordered erythromycin 0.5% ophthalmic ointment 0.5 inches, Eyes, Both, 4 times a day, # 4 Gm, 0 Refills, Maintenance, 10/22/22 10:20:00 EDT, OphthOintment, [facility] #[id number], Partial fill upon patient request if the [...] 08/17/22 11:12:00 EST, Route to Pharmacy Electronically, [facility] #[id number], 175.3, cm, 08/17/22 10:47:00 EST, Height, 98.4, kg, 09/12/20 8:51:00 EDT, D... Start Date: 08/17/22 Status: Ordered hydroCHLOROthiazide 12.5 mg oral capsule 1 capsule, By Mouth, Daily, # 90 capsule, 3 Refills, 08/17/22 11:12:00 EST, [facility] #[id number], 175.3, cm, 08/17/22 10:47:00 EST, Height, 98.4, kg, 09/12/20 8:51:00 EDT, Dry Weight Start Date: 08/17/22 Status: Ordered lisinopril 20 mg oral tablet 1, tablet, By Mouth, Daily, # 90 tablet, Refills 3, Tot. Refills 3, Maintenance, 08/17/22 11:12:00 EST, Route to Pharmacy Electronically, [facility] #[id number], 175.3, cm, 08/17/22 10:47:00 EST, Height, 98.4, [...] tablet, 3 Refills, Maintenance, 08/17/22 11:12:00 EST, [facility] #[id number], 175.3, cm, 08/17/22 10:47:00 EST, Height, 98.4, [...] Weight Start Date: 08/17/22 Status: Ordered Saw [place] By Mouth, 0 Refills, Maintenance, 08/17/22 11:05:00 [...] Team Personnel Name: Charleen Neri RN Position: [facility] RN Member Role: Primary Care Nurse Name: Min Mckenzie MD Position: [facility] Physician - Primary Care Member Role: PCP Address: Address: [address] [place] [address]- [place] Name: Vianey Gonzales NP Position: [facility] Associate Professional Member Role: Primary Care Nurse Address: Address: [address] [place] [address] Trauma and [place] [address]- [place] Name: Mara Daly RN Position: [facility] ED RN W/OE and Tasks Member Role: Primary Care Nurse Care Team Related Persons Name: PEDRO TACOS Address: [place] [address] [place] [address]
--- OUTSIDE RECORDS SUMMARY | 2024-01-05 10:00 | XMS_ITS | Continuity of Care Document ---
Author Organization [facility] Address [address] [place] [address]- Care Team Providers Care Aviation Consultant Name Role Phone Magaly BARNARD, Min Blackman Primary Care Physician [facility]): 09/15/23 - 10/15/23 [facility] [address] [place] [address]- Allergies, Adverse Reactions, Alerts Substance Reaction Severity [...] 3Location History: [facility] 4Result Comment: [id number] 5Location History: [facility] 6Location History: [facility] 7Location History: [facility] 8Admin Note: [facility]2 Medications Adult size disposable underwear/ pull-on medium Adult size disposable underwear/ pull-on medium, See Instructions, # 100 each, Refills 11, Tot. Refills 11, Maintenance, use 3-6 times per day. Dx: incontenence for lifetime., 05/24/23 13:57:00 EST, Supply Start Date: 05/24/23 Status: Ordered AndroGel 40.5 mg (1.62%) transdermal gel 2 pack/packet, Topically, Daily in AM, 0 Refills, Maintenance, 11/23/16 9:48:36, Gel Start Date: 11/23/16 Status: Ordered Aspirin = 81 mg, By Mouth, Daily, 0 Refills, Maintenance, 04/13/14 12:22:34 Start Date: 04/13/14 Status: Ordered atorvastatin 40 mg oral tablet 1 tablet, By Mouth, Daily at bedtime, # 90 tablet, 3 Refills, Maintenance, 09/08/23 14:28:00 EDT, [facility] #[id number], 175, cm, 09/08/23 14:11:00 EDT, Height, 99.4, kg, 03/20/23 21:57:00 EDT,Dry Weight Start Date: 09/08/23 Status: Ordered FLUoxetine 20 mg oral capsule See Instructions, TAKE 1 CAPSULE BY MOUTH DAILY, # 90 capsule, Refills 3, Tot. Refills 3, Maintenance, 09/08/23 14:28:00 EDT, Instructions Replace Required Details, Route to Pharmacy Electronically, [facility] #[id number], 175, cm, 09/08/23 14:11... Start Date: 09/08/23 Status: Ordered gemfibrozil 600 mg oral tablet 1, tablet, By Mouth, 2 times a day, # 180 tablet, Refills 3, Tot. Refills 3, Maintenance, 09/08/23 14:28:00 EDT, Route to Pharmacy Electronically, [facility] #[id number], 175, cm, 09/08/23 14:11:00 EDT, Height, 99.4, kg, 03/20/23 21:57:00 EDT, Start Date: 09/08/23 Status: Ordered losartan 50 mg oral tablet 50 mg, 1, tablet, By Mouth, Daily, # 90 tablet, Refills 3, Tot. Refills 3, Maintenance, 09/08/23 14:28:00 EDT, Route to Pharmacy Electronically, [facility] #[id number], Partial fill upon patientrequest if the prescription is for a schedule II op... Start Date: 09/08/23 Stop Date: 09/02/24 Status: Ordered Metoprolol Succinate ER 50 mg oral tablet, extended release 1 tablet, By Mouth, Daily, # 90 tablet, 3 Refills, Maintenance, 09/08/23 14:28:00 EDT, [facility] #[id number], 175, cm, 09/08/23 14:11:00 EDT, Height, 99.4, kg, 03/20/23 21:57:00 EDT, Dry Weight Start Date: 09/08/23 Status: Ordered nitroglycerin 0.4 mg sublingual tablet [...] Daily, # 90 tablet, 3 Refills, Maintenance, 09/08/23 14:28:00 EDT, 175, cm, 09/08/23 14:11:00 EDT, Height, 99.4, kg, 03/20/23 21:57:00 EDT, Dry Weight Start Date: 09/08/23 Status: Ordered saw palmetto 320 mg with phytosterols oral capsule 1 capsule = 320 mg, By Mouth, 2 times a day, # 180 capsule, 0 Refills, Maintenance, 04/01/23 15:46:00 EDT, Capsule, [facility], Partial fill upon patient request if the prescription is for a schedule II opioid drug., 175, cm, 03/20/23 22... Start Date: 04/01/23 Status: Ordered ZyrTEC 10 mg oral tablet See Instructions, 1 tablet By Mouth [address] scan, # 1 tablet, 0 Refills, Maintenance, 04/01/23 15:33:00 EDT, Tablet, [facility], Partial fill upon patient [...] Team Personnel Name: Dawna Oshea RN Position: [facility] RN Member Role: Primary Care Nurse Name: Teresa Carey RN Position: S RN Member Role: Primary Care Nurse Name: Sasha Queen RN Position: [facility] RN Member Role: Primary Care Nurse Name: Charleen Neri RN Position: [facility] RN Member Role: Primary Care Nurse Name: Min Mckenzie MD Position: S Physician - Primary Care Member Role: PCP Address: Address: [address] [place] [address]- Name: Vianey Gonzales NP Position: [facility] Associate Professional Member Role: Primary Care Nurse Address: Address: [address] [place] [address] Trauma [place] [address]- Name: Felecia Villegas LPN Position: [facility] RN Member Role: Primary Care Nurse Name: Maria C Pearson RN Position: [facility] RN Member Role: Primary Care Nurse Name: Geovanna Kumari RN Position: [facility] RN Member Role: Primary Care Nurse Name: Shi Dawn RN Position: [facility] RN Member Role: Primary Care Nurse Name: Tali Paul RN Position: [facility] RN Member Role: Primary Care Nurse Name: Alicia Croft RN Position: [facility] RN Member Role: Primary Care Nurse Name: Aicha Lai RN Position: [facility] RN Member Role: Primary Care Nurse Name: Dino Fleming RN Position: [facility] RN Member Role: Primary Care Nurse Name: Luisa Mitchell RN Position: [facility] RN Member Role: Primary Care Nurse Name: Nirav Nicholson RN Position: [facility] RN Member Role: Primary Care Nurse Name: Mara Miranda RN Position: [facility] RN Member Role: Primary Care Nurse Name: Mara Daly RN Position: [facility] ED RN W/OE and Tasks Member Role: Primary Care Nurse Name: Nellie Vivas RN Position: [facility] RN Member Role: Primary Care Nurse Name: Emy Balderas LPN Position: [facility] RN Member Role: Primary Care Nurse Name: Caitlyn Anderson RN Position: [facility] RN Member Role: Primary Care Nurse Name: Lelia Clarke RN Position: [facility] RN Member Role: Primary Care Nurse Care Team Related Persons Name: CIROTACOS POOL Address: [address] [address]
--- OUTSIDE RECORDS SUMMARY | 2024-01-05 10:00 | XMS_ITS | Continuity of Care Document ---
Author Organization [facility] Address [address] [place] [address]- Care Team Providers Care Valet Service Attendant Name Role Phone Magaly BARNARD, Min Blackman Primary Care Physician [phone] [facility] 01/07[facility]23 - 02/06/23 [facility] [address] [place] [address]- Allergies, Adverse Reactions, Alerts Substance Reaction Severity [...] 3Location History: [facility] 4Result Comment: [id number] 5Location History: [facility] 6Location History: [...] tablet, 3 Refills, Maintenance, 02/04/23 9:18:00 EDT, [facility] #[id number], 175.3, cm, 02/04/23 8:41:00 EDT, Height Start Date: 02/04/23 Status: Ordered Electric Heating pad Electric Heating [...] 0 Refills, Maintenance, 10/22/22 10:20:00 EDT, OphthOintment, [facility] #[id number], Partial fill upon patient request if the prescription is fora schedule II opioid drug., 0.5 inches Eyes, Both 4... Start Date: 10/22/22 Status: Ordered Fish Oil 1200 mg oral capsule 1 capsule = 1,200 mg, By Mouth, Daily, 0 Refills, Maintenance, 10/24/14 12:24:12 Start Date: 04/13/14 Status: Ordered gemfibrozil 600 mg oral tablet 1, tablet, By Mouth, 2 times a day, # 180 tablet, Refills 3, Tot. Refills 3, Maintenance, 02/04/23 9:18:00 EDT, Route to Pharmacy Electronically, [facility] #[id number], 175.3, cm, 02/04/23 8:41:00 EDT, Height Start Date: 02/04/23 Status: Ordered hydroCHLOROthiazide 12.5 mg oral capsule 1 capsule, By Mouth, Daily, # 90 capsule, 3 Refills, 02/04/23 9:18:00 EDT, [facility] #[id number], 175.3, cm, 02/04/23 8:41:00 EDT, Height Start Date: 02/04/23 Status: Ordered losartan 50 mg oral tablet 50 mg, 1, tablet, By Mouth, Daily, # 90 tablet, Refills 3, Tot. Refills 3, Maintenance, 02/04/23 9:19:00 EDT, Route to Pharmacy Electronically, [facility] #[id number], Partial fill upon patient request if the [...] tablet, 3 Refills, Maintenance, 02/04/23 9:18:00 EDT, [facility] #[id number], 175.3, cm, 02/04/23 8:41:00 EDT, Height Start [...] EDT, Height Start Date: 02/04/23 Status: Ordered Reusable bed pads Reusable bed pads, See Instructions, # 2 each, Refills 1, Tot. Refills 1, Maintenance, Dx: Urinary frequency (R35.0) Urinary urgency (39.15) Changes per day - 3 SANDY: [facility] WT: 216lbs, 01/14/23 12:39:00 EDT, Supply Start Date: 01/14/23 Status: Ordered Saw [place] By Mouth, 0 Refills, Maintenance, 08/17/22 11:05:00 [...] Team Personnel Name: Charleen Neri RN Position: [facility] RN Member Role: Primary Care Nurse Name: Min Mckenzie MD Position: [facility] Physician - Primary Care Member Role: PCP Address: Address: [address] [place] [address]- Name: Vianey Gonzales NP Position: [facility] Associate Professional Member Role: Primary Care Nurse Address: Address: [address] [place] [address] Trauma [place] [address]- [place] Name: Mara Daly RN Position: [facility] ED RN W/OE and Tasks Member Role: Primary Care Nurse Care Team Related Persons Name: TACOS VASQUEZ Address: [facility] [address] [place] [address]
--- OUTSIDE RECORDS SUMMARY | 2024-01-05 10:00 | XMS_ITS | Continuity of Care Document ---
Author Organization [facility] Address [address] [place] [address]- Care Team Providers Care Detective Narcotics And Vice Name Role Phone Magaly BARNARD, Min Blackman Primary Care Physician [phone] [facility] 10/20/22 - 11/19/22 [facility] [address] [place] [address]- Allergies, Adverse Reactions, Alerts Substance Reaction Severity [...] 3Location History: [facility] 4Result Comment: [id number] 5Location History: [facility] 6Location History: [...] tablet, 3 Refills, Maintenance, 08/17/22 11:12:00 EST, [facility] #[id number], 175.3, cm, 08/17/22 10:47:00 EST, Height, 98.4, kg, 09/12/20 8:51:00 EDT, Dry Weight Start Date: 08/17/22 Status: Ordered erythromycin 0.5% ophthalmic ointment 0.5 inches, Eyes, Both, 4 times a day, # 4 Gm, 0 Refills, Maintenance, 10/22/22 10:20:00 EDT, OphthOintment, [facility] #[id number], Partial fill upon patient request if the [...] 08/17/22 11:12:00 EST, Route to Pharmacy Electronically, [facility] #[id number], 175.3, cm, 08/17/22 10:47:00 EST, Height, 98.4, kg, 09/12/20 8:51:00 EDT, D... Start Date: 08/17/22 Status: Ordered hydroCHLOROthiazide 12.5 mg oral capsule 1 capsule, By Mouth, Daily, # 90 capsule, 3 Refills, 08/17/22 11:12:00 EST, [facility] #[id number], 175.3, cm, 08/17/22 10:47:00 EST, Height, 98.4, kg, 09/12/20 8:51:00 EDT, Dry Weight Start Date: 08/17/22 Status: Ordered lisinopril 20 mg oral tablet 1, tablet, By Mouth, Daily, # 90 tablet, Refills 3, Tot. Refills 3, Maintenance, 08/17/22 11:12:00 EST, Route to Pharmacy Electronically, [facility] #[id number], 175.3, cm, 08/17/22 10:47:00 EST, Height, 98.4, [...] tablet, 3 Refills, Maintenance, 08/17/22 11:12:00 EST, [facility] #[id number], 175.3, cm, 08/17/22 10:47:00 EST, Height, 98.4, [...] Weight Start Date: 08/17/22 Status: Ordered Saw [place] By Mouth, 0 Refills, Maintenance, 08/17/22 11:05:00 [...] Team Personnel Name: Charleen Neri RN Position: [facility] RN Member Role: Primary Care Nurse Name: Min Mckenzie MD Position: [facility] Physician - Primary Care Member Role: PCP Address: Address: [address] [place] [address]- [place] Name: Vianey Gonzales NP Position: [facility] Associate Professional Member Role: Primary Care Nurse Address: Address: [address] [place] [address] Trauma [place] [address]- [place] Name: Mara Daly RN Position: [facility] ED RN W/OE and Tasks Member Role: Primary Care Nurse Care Team Related Persons Name: PEDRO TACOS Address: [place] [address] [place] [address]
--- OUTSIDE RECORDS SUMMARY | 2024-01-05 10:00 | XMS_ITS | Continuity of Care Document ---
Author Organization [facility] Aki lt Address [address] [place] [address]- Care Team Providers Care Cold Working Supervisor Name Role Phone Magaly BARNARD, Min Blackman Primary Care Physician Encounter [facility] Date(s): 04/27/23 - 05/04/23 [facility] Adult [address] [place] [address]- Encounter Diagnosis JULIET (generalized anxiety disorder)(Discharge Diagnosis) - 04/27/23 Diarrhea(Discharge Diagnosis) - 04/27/23 Elevated LFTs(Discharge Diagnosis) - 04/27/23 Attending Physician: Luisa Jorge NP Referring Physician: Min Mckenzie MD Allergies, Adverse Reactions, [...] 3Location History: [facility] 4Result Comment: [id number] 5Location History: [facility] 6Location History: [...] tablet, 3 Refills, Maintenance, 02/04/23 9:18:00 EDT, [facility] #[id number], 175.3, cm, 02/04/23 8:41:00 EDT, Height Start Date: 02/04/23 Status: Ordered FLUoxetine 20 mg oral capsule 20 mg, 1, capsule, By Mouth, Daily, # 90 capsule, Refills 1, Tot. Refills 1, Maintenance, 04/27/23 14:10:00 EST, Route to Pharmacy Electronically, [facility] #[id number], Partial fill upon patient request if the prescription is for a schedule II... Start Date: 04/27/23 Status: Ordered gemfibrozil 600 mg oral tablet 1, tablet, By Mouth, 2 times a day, # 180 tablet, Refills 3, Tot. Refills 3, Maintenance, 02/04/23 9:18:00 EDT, Route to Pharmacy Electronically, [facility] #[id number], 175.3, cm, 02/04/23 8:41:00 EDT, Height Start Date: 02/04/23 Status: Ordered losartan 50 mg oral tablet 50 mg, 1, tablet, By Mouth, Daily, # 90 tablet, Refills 3, Tot. Refills 3, Maintenance, 02/04/23 9:19:00 EDT, Route to Pharmacy Electronically, [facility] #[id number], Partial fill upon patient request if the prescription is for a schedule II opi... Start Date: 02/04/23 Stop Date: 01/30/24 Status: Ordered Metoprolol Succinate ER 50 mg oral tablet, extended release 1 tablet, By Mouth, Daily, # 90 tablet, 3 Refills, Maintenance, 02/04/23 9:18:00 EDT, [facility] #[id number], 175.3, cm, 02/04/23 8:41:00 EDT, Height Start [...] 0 Refills, Maintenance, 04/01/23 15:46:00 EDT, Capsule, [facility], Partial fill upon patient request if the prescription is for a schedule II opioid drug., 175, cm, 03/20/23 22... Start Date: 04/01/23 Status: Ordered ZyrTEC 10 mg oral tablet See Instructions, 1 tablet By Mouth [address] scan, # 1 tablet, 0 Refills, Maintenance, 04/01/23 15:33:00 EDT, Tablet, [facility], Partial fill upon patient [...] Diagnosis Diagnosis Type Effective Dates Health Status Cl inical Service Informant JULIET (generalized anxiety disorder) Discharge Diagnosis 04/27/23 Diarrhea Discharge Diagnosis 04/27/23 Elevated LFTs Discharge Diagnosis 04/27/23 Vital Signs Most recent to oldest [Reference Range]: 1 Height 175 cm (04/27/23 1:58 PM) Weight 86.3 kg (04/27/23 1:58 PM) Oxygen Saturation [94-100 %] 98 % (04/27/23 1:58 PM) Pulse Rate [55-90 bpm] 60 bpm (04/27/23 1:58 PM) Body Mass Index [18.5-24.99 kg/m2] 28.18 kg/m2 *H* (04/27/23 1:58 PM) Blood Pressure [90-138/55-84 mm Hg] 110/ 68mm Hg (04/27/23 1:58 PM) Temperature [96.8-100.4 DegF] 98.0 DegF (04/27/23 1:58 PM) Mode of Delivery (Oxygen) Room air (04/27/23 1:58 PM) Blood pressure sites Arm, right (04/27/23 1:58 PM) Temperature Route Oral (04/27/23 1:58 PM) Weight Obtained Via Standing scale (04/27/23 1:58 PM) Social History Social History Type Response Smoking Status Never smoker entered on: 07/12/14 Sex Patient Care team information Care Team Personnel Name: Dawna Oshea RN Position: [facility] RN Member Role: Primary Care Nurse Name: Teresa Carey RN Position: S RN Member Role: Primary Care Nurse Name: Sasha Queen RN Position: S RN Member Role: Primary Care Nurse Name: Charleen Neri RN Position: [facility] RN Member Role: Primary Care Nurse Name: Min Mckenzie MD Position: [facility] Physician - Primary Care Member Role: PCP Address: Address: [address] [place] [address]- Name: Vianey Gonzales NP Position: [facility] Associate Professional Member Role: Primary Care Nurse Address: Address: [address] [place] [address] Trauma and [place] [address]- Name: Felecia Villegas LPN Position: [facility] RN Member Role: Primary Care Nurse Name: Maria C Pearson RN Position: [facility] RN Member Role: Primary Care Nurse Name: Geovanna Kumari RN Position: [facility] RN Member Role: Primary Care Nurse Name: Shi Dawn RN Position: [facility] RN Member Role: Primary Care Nurse Name: Tali Paul RN Position: [facility] RN Member Role: Primary Care Nurse Name: Alicia Croft RN Position: [facility] RN Member Role: Primary Care Nurse Name: Aicha Lai RN Position: [facility] RN Member Role: Primary Care Nurse Name: Dino Fleming RN Position: [facility] RN Member Role: Primary Care Nurse Name: Luisa Mitchell RN Position: [facility] RN Member Role: Primary Care Nurse Name: Storm Gutierrez RN Position: [facility] RN Member Role: Primary Care Nurse Name: Nirav Nicholson RN Position: [facility] RN Member Role: Primary Care Nurse Name: Elaine Clark RN Position: [facility] RN Member Role: Primary Care Nurse Name: Mara Miranda RN Position: [facility] RN Member Role: Primary Care Nurse Name: Mara Daly RN Position: [facility] ED RN W/OE and Tasks Member Role: Primary Care Nurse Name: Nellie Vivas RN Position: [facility] RN Member Role: Primary Care Nurse Name: Emy Balderas LPN Position: [facility] RN Member Role: Primary Care Nurse Name: Caitlyn Anderson RN Position: [facility] RN Member Role: Primary Care Nurse Name: Lelia Clarke RN Position: [facility] RN Member Role: Primary Care Nurse Care Team Related Persons Name: TACOS VASQUEZ Address: [address] [address]
--- OUTSIDE RECORDS SUMMARY | 2024-01-05 10:00 | XMS_ITS | Continuity of Care Document ---
Author Organization [facility] Address [address] [place] [address] [address] [place] [address]- Care Team Providers Care Duty Officer Name Role Phone Min Mckenzie MD Primary Care Physician [phone] Encounter [facility] Date(s): 04/01/23 - 06/05/23 [facility] [address] [place] [address]- Attending Physician: Prateek Kenyon MD Allergies, Adverse [...] 3Location History: [facility] 4Result Comment: [id number] 5Location History: [facility] 6Location History: [...] tablet, 3 Refills, Maintenance, 02/04/23 9:18:00 EDT, [facility] #[id number], 175.3, cm, 02/04/23 8:41:00 EDT, Height Start Date: 02/04/23 Status: Ordered FLUoxetine 20 mg oral capsule 20 mg, 1, capsule, By Mouth, Daily, # 90 capsule, Refills 1, Tot. Refills 1, Maintenance, 04/27/23 14:10:00 EST, Route to Pharmacy Electronically, [facility] #[id number], Partial fill upon patient request if the prescription is for a schedule II... Start Date: 04/27/23 Status: Ordered gemfibrozil 600 mg oral tablet 1, tablet, By Mouth, 2 times a day, # 180 tablet, Refills 3, Tot. Refills 3, Maintenance, 02/04/23 9:18:00 EDT, Route to Pharmacy Electronically, [facility] #[id number], 175.3, cm, 02/04/23 8:41:00 EDT, Height Start Date: 02/04/23 Status: Ordered losartan 50 mg oral tablet 50 mg, 1, tablet, By Mouth, Daily, # 90 tablet, Refills 3, Tot. Refills 3, Maintenance, 02/04/23 9:19:00 EDT, Route to Pharmacy Electronically, [facility] #[id number], Partial fill upon patient request if the prescription is for a schedule II opi... Start Date: 02/04/23 Stop Date: 01/30/24 Status: Ordered Metoprolol Succinate ER 50 mg oral tablet, extended release 1 tablet, By Mouth, Daily, # 90 tablet, 3 Refills, Maintenance, 02/04/23 9:18:00 EDT, [facility] #[id number], 175.3, cm, 02/04/23 8:41:00 EDT, Height Start [...] 0 Refills, Maintenance, 04/01/23 15:46:00 EDT, Capsule, [facility], Partial fill upon patient request if the prescription is for a schedule II opioid drug., 175, cm, 03/20/23 22... Start Date: 04/01/23 Status: Ordered ZyrTEC 10 mg oral tablet See Instructions, 1 tablet By Mouth [address] scan, # 1 tablet, 0 Refills, Maintenance, 04/01/23 15:33:00 EDT, Tablet, [facility], Partial fill upon patient [...] Team Personnel Name: Dawna Oshea RN Position: [facility] RN Member Role: Primary Care Nurse Name: Teresa Carey RN Position: [facility] RN Member Role: Primary Care Nurse Name: Sasha Queen RN Position: S RN Member Role: Primary Care Nurse Name: Charleen Neri RN Position: S RN Member Role: Primary Care Nurse Name: Min Mckenzie MD Position: [facility] Physician - Primary Care Member Role: PCP Address: Address: [address] [place] [address]- [place] Name: Vianey Gonzales NP Position: [facility] Associate Professional Member Role: Primary Care Nurse Address: Address: [address] [place] [address] Trauma [place] [address]- [place] Name: Felecia Villegas LPN Position: S RN Member Role: Primary Care Nurse Name: Maria C Pearson RN Position: [facility] RN Member Role: Primary Care Nurse Name: Geovanna Kumari RN Position: [facility] RN Member Role: Primary Care Nurse Name: Shi Dawn RN Position: [facility] RN Member Role: Primary Care Nurse Name: Tali Paul RN Position: [facility] RN Member Role: Primary Care Nurse Name: Alicia Croft RN Position: [facility] RN Member Role: Primary Care Nurse Name: Aicha Lai RN Position: [facility] RN Member Role: Primary Care Nurse Name: Dino Fleming RN Position: [facility] RN Member Role: Primary Care Nurse Name: Luisa Mitchell RN Position: [facility] RN Member Role: Primary Care Nurse Name: Storm Gutierrez RN Position: [facility] RN Member Role: Primary Care Nurse Name: Nirav Nicholson RN Position: [facility] RN Member Role: Primary Care Nurse Name: Elaine Clark RN Position: [facility] RN Member Role: Primary Care Nurse Name: Mara Miranda RN Position: [facility] RN Member Role: Primary Care Nurse Name: Mara Daly RN Position: [facility] ED RN W/OE and Tasks Member Role: Primary Care Nurse Name: Nellie Vivas RN Position: [facility] RN Member Role: Primary Care Nurse Name: Emy Balderas LPN Position: [facility] RN Member Role: Primary Care Nurse Name: Caitlyn Anderson RN Position: [facility] RN Member Role: Primary Care Nurse Name: Lelia Clarke RN Position: [facility] RN Member Role: Primary Care Nurse Care Team Related Persons Name: TACOS VASQUEZ Address: [address] [address]
--- OUTSIDE RECORDS SUMMARY | 2024-01-05 10:00 | XMS_ITS | Continuity of Care Document ---
Author Organization [facility] Address [address] [place] [address] [address] [place] [address]- Care Team Providers Care Chemical Weigher Name Role Phone Min Mckenzie MD Primary Care Physician Encounter [facility] Date(s): 07/01/23 - 07/31/[address] [place] [address]- Attending Physician: Admtr, Pippa Admitting Physician: Admtr, Pippa Referring Physician: Admtr, Ar8 Allergies, Adverse Reactions, Alerts Substance Reaction Severity [...] 3Location History: [facility] 4Result Comment: [id number] 5Location History: [facility] 6Location History: [...] tablet, 3 Refills, Maintenance, 02/04/23 9:18:00 EDT, [facility] #[id number], 175.3, cm, 02/04/23 8:41:00 EDT, Height Start Date: 02/04/23 Status: Ordered FLUoxetine 20 mg oral capsule 20 mg, 1, capsule, By Mouth, Daily, # 90 capsule, Refills 1, Tot. Refills 1, Maintenance, 04/27/23 14:10:00 EST, Route to Pharmacy Electronically, [facility] #[id number], Partial fill upon patient request if the prescription is for a schedule II... Start Date: 04/27/23 Status: Ordered gemfibrozil 600 mg oral tablet 1, tablet, By Mouth, 2 times a day, # 180 tablet, Refills 3, Tot. Refills 3, Maintenance, 02/04/23 9:18:00 EDT, [id number], 175.3, cm, 02/04/23 8:41:00 EDT, Height Start Date: 02/04/23 Status: Ordered losartan 50 mg oral tablet 50 mg, 1, tablet, By Mouth, Daily, # 90 tablet, Refills 3, Tot. Refills 3, Maintenance, 02/04/23 9:19:00 EDT, [id number], Partial fill upon patient request if the prescription is for a schedule II opi... Start Date: 02/04/23 Stop Date: 01/30/24 Status: Ordered Metoprolol Succinate ER 50 mg oral tablet, extended release 1 tablet, By Mouth, Daily, # 90 tablet, 3 Refills, Maintenance, 02/04/23 9:18:00 EDT, [id number], 175.3, cm, 02/04/23 8:41:00 EDT, Height Start [...] 0 Refills, Maintenance, 04/01/23 15:46:00 EDT, Capsule, [facility], Partial fill upon patient request if the prescription is for a schedule II opioid drug., 175, cm, 03/20/23 22... Start Date: 04/01/23 Status: Ordered ZyrTEC 10 mg oral tablet See Instructions, 1 tablet By Mouth [address] scan, # 1 tablet, 0 Refills, Maintenance, 04/01/23 15:33:00 EDT, Tablet, [facility], Partial fill upon patient [...] Team Personnel Name: Dawna Oshea RN Position: [facility] RN Member Role: Primary Care Nurse Name: Teresa Carey RN Position: [facility] RN Member Role: Primary Care Nurse Name: Sasha Queen RN Position: [facility] RN Member Role: Primary Care Nurse Name: Charleen Neri RN Position: [facility] RN Member Role: Primary Care Nurse Name: Min Mckenzie MD Position: [facility] Physician - Primary Care Member Role: PCP Address: Address: [address] [place] [address]- [place] Name: Vianey Gonzales NP Position: [facility] Associate Professional Member Role: Primary Care Nurse Address: Address: [address] [place] [address] Trauma [place] [address]- [place] Name: Felecia Villegas LPN Position: [facility] RN Member Role: Primary Care Nurse Name: Maria C Pearson RN Position: [facility] RN Member Role: Primary Care Nurse Name: Geovanna Kumari RN Position: [facility] RN Member Role: Primary Care Nurse Name: Shi Dawn RN Position: [facility] RN Member Role: Primary Care Nurse Name: Tali Paul RN Position: [facility] RN Member Role: Primary Care Nurse Name: Alicia Croft RN Position: [facility] RN Member Role: Primary Care Nurse Name: Aicha Lai RN Position: [facility] RN Member Role: Primary Care Nurse Name: Dino Fleming RN Position: [facility] RN Member Role: Primary Care Nurse Name: Luisa Mitchell RN Position: [facility] RN Member Role: Primary Care Nurse Name: Storm Gutierrez RN Position: [facility] RN Member Role: Primary Care Nurse Name: Nirav Nicholson RN Position: [facility] RN Member Role: Primary Care Nurse Name: Elaine Clark RN Position: [facility] RN Member Role: Primary Care Nurse Name: Mara Miranda RN Position: [facility] RN Member Role: Primary Care Nurse Name: Mara Daly RN Position: [facility] ED RN W/OE and Tasks Member Role: Primary Care Nurse Name: Nellie Vivas RN Position: [facility] RN Member Role: Primary Care Nurse Name: Emy Balderas LPN Position: [facility] RN Member Role: Primary Care Nurse Name: Caitlyn Anderson RN Position: [facility] RN Member Role: Primary Care Nurse Name: Lelia Clarke RN Position: [facility] RN Member Role: Primary Care Nurse Care Team Related Persons Name: TACOS VASQUEZ Address: [address] [address]
--- OUTSIDE RECORDS SUMMARY | 2024-01-05 10:00 | XMS_ITS | Continuity of Care Document ---
Author Organization [facility] Aki lt Address [address] [place] [address]- Care Team Providers Care Cinder Crew Worker Name Role Phone Magaly BARNARD, Min Blackman Primary Care Physician [facility]counter [facility] Date(s): 11/05/22 - 12/05/22 [facility] Adult [address] [place] [address]- Allergies, Adverse Reactions, Alerts Substance Reaction Severity [...] 3Location History: [facility] 4Result Comment: [id number] 5Location History: [facility] 6Location History: [facility] 7Location History: [facility] 8Admin [...] tablet, 3 Refills, Maintenance, 08/17/22 11:12:00 EST, [facility] #[id number], 175.3, cm, 08/17/22 10:47:00 EST, Height, 98.4, kg, 09/12/20 8:51:00 EDT, Dry Weight Start Date: 08/17/22 Status: Ordered erythromycin 0.5% ophthalmic ointment 0.5 inches, Eyes, Both, 4 times a day, # 4 Gm, 0 Refills, Maintenance, 10/22/22 10:20:00 EDT, OphthOintment, [facility] #[id number], Partial fill upon patient request if the [...] 08/17/22 11:12:00 EST, Route to Pharmacy Electronically, [facility] #[id number], 175.3, cm, 08/17/22 10:47:00 EST, Height, 98.4, kg, 09/12/20 8:51:00 EDT, D... Start Date: 08/17/22 Status: Ordered hydroCHLOROthiazide 12.5 mg oral capsule 1 capsule, By Mouth, Daily, # 90 capsule, 3 Refills, 08/17/22 11:12:00 EST, [facility] #[id number], 175.3, cm, 08/17/22 10:47:00 EST, Height, 98.4, kg, 09/12/20 8:51:00 EDT, Dry Weight Start Date: 08/17/22 Status: Ordered lisinopril 20 mg oral tablet 1, tablet, By Mouth, Daily, # 90 tablet, Refills 3, Tot. Refills 3, Maintenance, 08/17/22 11:12:00 EST, Route to Pharmacy Electronically, [facility] #[id number], 175.3, cm, 08/17/22 10:47:00 EST, Height, 98.4, [...] tablet, 3 Refills, Maintenance, 08/17/22 11:12:00 EST, [facility] #[id number], 175.3, cm, 08/17/22 10:47:00 EST, Height, 98.4, [...] Weight Start Date: 08/17/22 Status: Ordered [place] By Mouth, 0 Refills, Maintenance, 08/17/22 11:05:00 [...] Team Personnel Name: Charleen Neri RN Position: [facility] RN Member Role: Primary Care Nurse Name: Min Mckenzie MD Position: [facility] Physician - Primary Care Member Role: PCP Address: Address: [address] [place] [address]- Name: Vianey Gonzales NP Position: [facility] Associate Professional Member Role: Primary Care Nurse Address: Address: [address] [place] [address] Trauma and Acute [place] [address]- [place] Name: Mara Daly RN Position: [facility] ED RN W/OE and Tasks Member Role: Primary Care Nurse Care Team Related Persons Name: PEDRO TACOS Address: [facility] [address] [place] [address]
--- OUTSIDE RECORDS SUMMARY | 2024-01-05 10:00 | XMS_ITS | Continuity of Care Document ---
Author Organization [facility] Address [address] [place] [address]- Care Team Providers Care Assistant Spa Manager Name Role Phone Min Mckenzie MD Primary Care Physician [facility] Date[facility]s): 05/31/23 - 06/07/23 [facility] [address] [place] [address]- Attending Physician: Min Mckenzie MD Allergies, Adverse [...] 3Location History: [facility] 4Result Comment: [id number] 5Location History: [facility] 6Location History: [...] tablet, 3 Refills, Maintenance, 02/04/23 9:18:00 EDT, [id number], 175.3, cm, 02/04/23 8:41:00 EDT, Height Start Date: 02/04/23 Status: Ordered FLUoxetine 20 mg oral capsule 20 mg, 1, capsule, By Mouth, Daily, # 90 capsule, Refills 1, Tot. Refills 1, Maintenance, 04/27/23 14:10:00 EST, Route to Pharmacy Electronically, [facility] #[id number], Partial fill upon patient request if the prescription is for a schedule II... Start Date: 04/27/23 Status: Ordered gemfibrozil 600 mg oral tablet 1, tablet, By Mouth, 2 times a day, # 180 tablet, Refills 3, Tot. Refills 3, Maintenance, 02/04/23 9:18:00 EDT, Route to Pharmacy Electronically, [facility] #[id number], 175.3, cm, 02/04/23 8:41:00 EDT, Height Start Date: 02/04/23 Status: Ordered losartan 50 mg oral tablet 50 mg, 1, tablet, By Mouth, Daily, # 90 tablet, Refills 3, Tot. Refills 3, Maintenance, 02/04/23 9:19:00 EDT, Route to Pharmacy Electronically, [facility] #[id number], Partial fill upon patient request if the prescription is for a schedule II opi... Start Date: 02/04/23 Stop Date: 01/30/24 Status: Ordered Metoprolol Succinate ER 50 mg oral tablet, extended release 1 tablet, By Mouth, Daily, # 90 tablet, 3 Refills, Maintenance, 02/04/23 9:18:00 EDT, [facility] #[id number], 175.3, cm, 02/04/23 8:41:00 EDT, Height Start [...] 0 Refills, Maintenance, 04/01/23 15:46:00 EDT, Capsule, [facility], Partial fill upon patient request if the prescription is for a schedule II opioid drug., 175, cm, 03/20/23 22... Start Date: 04/01/23 Status: Ordered ZyrTEC 10 mg oral tablet See Instructions, 1 tablet By Mouth [address] scan, # 1 tablet, 0 Refills, Maintenance, 04/01/23 15:33:00 EDT, Tablet, [facility], Partial fill upon patient [...] oldest [Reference Range]: 1 Height 175 cm (05/31/23 2:59 PM) Weight 91.6 kg (05/31/23 2:59 PM) Oxygen Saturation [94-100 %] 95 % (05/31/23 2:59 PM) Pulse Rate [55-90 bpm] 67 bpm (05/31/23 2:59 PM) Body Mass Index [18.5-24.99 kg/m2] 29.91 kg/m2 *H* (05/31/23 2:59 PM) Systolic Blood Pressure [90-138 mm Hg] 1 10 mm Hg (05/31/23 2:59 PM) Mode of Delivery (Oxygen) Room air (05/31/23 2:59 PM) Blood pressure sites Arm, left (05/31/23 2:59 PM) Weight Obtained Via Standing scale (05/31/23 2:59 PM) Social History Social History Type Response Smoking Status Never smoker entered on: 07/12/14 Sex Note * Suzanne Jose: PERFORM, SIGN, VERIFY Event Display: Patient Education/Instruction Authored Date: [id number] [facility] *[facility] Clinical Summary Name MAURO VASQUEZ Age 67 Years 1955 PCP Magaly BARNARD, Min Blackman PCP Visit Date 05/31/2023 14:30:00 Additional Instructions: Scheduled Appointments?? Future Appointments ?*[facility]Gastro ?[address]??[place],??[place],??[address] ?Phone:??--?Fax:??-- ?Appt. Date:??06/02/2023?2:45 PM ?Scheduled Provider:??Sina Carlos MD Follow-Up Instructions ?? With: Address: When: Ania VIDALES, Luisa Cunningham [address], [place] [id number] In 3 months Diagnosis Biliary acute pancreatitis without necrosis or infection Medications: Please continue your medications until treatment is completed or stopped by your provider. Discuss any questions related to medications with your provider. Medications to Continue with No Changes - Durable Medical Equipment (Adult size disposable underwear/ pull-on medium) use 3-6 times per day. Dx: incontenence for lifetime.. Refills: 11. Next Dose: These medications were not printed or sent to your pharmacy Aspirin 81 Milligram Oral Daily. Next Dose: Atorvastatin (atorvastatin 40 mg oral tablet) 1 tab(s) Oral Daily at Bedtime. Refills: 3. Next Dose: Cetirizine (ZyrTEC 10 mg oral tablet) 1 tablet By Mouth [address] scan. Refills: 0. Next Dose: Fluoxetine (FLUoxetine 20 mg oral capsule) 1 capsule Oral Daily. Refills: 1. Next Dose: Gemfibrozil (gemfibrozil 600 mg oral tablet) 1 tab(s) Oral twice a day. Refills: 3. Next Dose: Losartan (losartan 50 mg oral tablet) 1 tab(s) Oral Daily for 90 Days. Refills: 3. Next Dose: Metoprolol (Metoprolol Succinate ER 50 mg oral tablet, extended release) 1 tab(s) Oral Daily. Refills: 3. Next Dose: Nitroglycerin (nitroglycerin 0.4 mg sublingual tablet) 1 tab(s) Sublingual every 5 minutes as needed Chest Pain. not to exceed 3 doses/15 min--if pain persists, seek medical attention Call 911. Refills: 11. Next Dose: Pantoprazole (pantoprazole 40 mg oral delayed release tablet) 1 tab(s) Oral Daily. Refills: 3. Next Dose: Saw [place] (saw palmetto 320 mg with phytosterols oral capsule) 1 capsule Oral twice a day. Refills: 0. Next Dose: Testosterone (AndroGel 40.5 mg (1.62%) transdermal gel) 2 pack/packet Topically Daily in the morning. Next Dose: Allergy Info:?? Contrast Dye Medications Given This Visit Future Orders ?Direct LDL? Order Date:05/31/23?- Complete on or after?05/31/23 ?PSA? Order Date:05/31/23?- Complete on or after?05/31/23 ?Thyroid Panel? Order Date:05/31/23?- Complete on or after?05/31/23 ?CBC? Order Date:05/31/23?- Complete on or after?05/31/23 ?Comprehensive Metabolic Panel? Order Date:05/31/23?- Complete on or after?05/31/23 Vital Signs Height 175 cm Weight 91.6 kg BMI 29.91 kg/m2 Blood Pressure 110 mm Hg/ Temperature Pulse Rate 67 bpm Respiratory Rate 02 Sat Mode of Delivery 95 %/Room air You can now view a summary of your hospital visit from the comfort of your home through a free online portal called [employer]. [employer] is a website that allows you to securely view your medical information including discharge summary, medications and follow-up visits. ??You can alsosend a secure electronic message to your doctor???s office to request appointments, renew medications or just ask a question. You can enroll at [email or web address] or register during your next office visit. [...] primary care provider, you may find a [facility] provider by calling [facility] at [phone]. [facility], in keeping with [facility] guidance, no longer requires face masks for staff, patientsor visitors in most situations. Similar to time spent indoors at other locations, there is the chance that you were exposed to respiratory viruses during your time with us (such as flu or COVID-19).? If you develop symptoms concerning for a viral respiratory infection, please seek testing (and treatment if indicated) from your medical provider or home test kit. For information about the plan of care [...] Team Personnel Name: Dawna Oshea RN Position: [facility] RN Member Role: Primary Care Nurse Name: Teresa Carey RN Position: [facility] RN Member Role: Primary Care Nurse Name: Sasha Queen RN Position: [facility] RN Member Role: Primary Care Nurse Name: Charleen Neri RN Position: [facility] RN Member Role: Primary Care Nurse Name: Min Mckenzie MD Position: [facility] Physician - Primary Care Member Role: PCP Address: Address: [address] [place] [address]- Name: Vianey Gonzales NP Position: [facility] Associate Professional Member Role: Primary Care Nurse Address: Address: [address] [place] [address] Trauma [place] [address]- Name: Felecia Villegas LPN Position: S RN Member Role: Primary Care Nurse Name: Maria C Pearson RN Position: S RN Member Role: Primary Care Nurse Name: Geovanna Kumari RN Position: [facility] RN Member Role: Primary Care Nurse Name: Shi Dawn RN Position: S RN Member Role: Primary Care Nurse Name: Tali Paul RN Position: S RN Member Role: Primary Care Nurse Name: Alicia Croft RN Position: [facility] RN Member Role: Primary Care Nurse Name: Aicha Lai RN Position: [facility] RN Member Role: Primary Care Nurse Name: Dino Fleming RN Position: [facility] RN Member Role: Primary Care Nurse Name: Luisa Mitchell RN Position: [facility] RN Member Role: Primary Care Nurse Name: Storm Gutierrez RN Position: [facility] RN Member Role: Primary Care Nurse Name: Nirav Nicholson RN Position: [facility] RN Member Role: Primary Care Nurse Name: Elaine Clark RN Position: [facility] RN Member Role: Primary Care Nurse Name: Mara Miranda RN Position: [facility] RN Member Role: Primary Care Nurse Name: Mara Daly RN Position: [facility] ED RN W/OE and Tasks Member Role: Primary Care Nurse Name: Nellie Vivas RN Position: [facility] RN Member Role: Primary Care Nurse Name: Emy Balderas LPN Position: [facility] RN Member Role: Primary Care Nurse Name: Caitlyn Anderson RN Position: [facility] RN Member Role: Primary Care Nurse Name: Lelia Clarke RN Position: [facility] RN Member Role: Primary Care Nurse Care Team Related Persons Name: TACOS VASQUEZ Address: [address] [address]
--- OUTSIDE RECORDS SUMMARY | 2024-01-05 10:00 | XMS_ITS | Continuity of Care Document ---
Author Organization [facility] Address [address] [place] [address]- Care Team Providers Care Water Regulator And Valve Repairer Name Role Phone Magaly BARNARD, Min Blackman Primary Care Physician [phone] Encounter [facility] Date(s): 02/23/23 - 05/30/23 [facility] [address] [place] [address]- Attending Physician: Sina Carlos MD Admitting Physician: Sina Carlos MD Referring Physician: Min Mckenzie MD Allergies, Adverse [...] 3Location History: [facility] 4Result Comment: [id number] 5Location History: [facility] 6Location History: [...] tablet, 3 Refills, Maintenance, 02/04/23 9:18:00 EDT, [facility] #[id number], 175.3, cm, 02/04/23 8:41:00 EDT, Height Start Date: 02/04/23 Status: Ordered FLUoxetine 20 mg oral capsule 20 mg, 1, capsule, By Mouth, Daily, # 90 capsule, Refills 1, Tot. Refills 1, Maintenance, 04/27/23 14:10:00 EST, Route to Pharmacy Electronically, [facility] #[id number], Partial fill upon patient request if the prescription is for a schedule II... Start Date: 04/27/23 Status: Ordered gemfibrozil 600 mg oral tablet 1, tablet, By Mouth, 2 times a day, # 180 tablet, Refills 3, Tot. Refills 3, Maintenance, 02/04/23 9:18:00 EDT, Route to Pharmacy Electronically, [facility] #[id number], 175.3, cm, 02/04/23 8:41:00 EDT, Height Start Date: 02/04/23 Status: Ordered losartan 50 mg oral tablet 50 mg, 1, tablet, By Mouth, Daily, # 90 tablet, Refills 3, Tot. Refills 3, Maintenance, 02/04/23 9:19:00 EDT, [id number], Partial fill upon patient request if the prescription is for a schedule II opi... Start Date: 02/04/23 Stop Date: 01/30/24 Status: Ordered Metoprolol Succinate ER 50 mg oral tablet, extended release 1 tablet, By Mouth, Daily, # 90 tablet, 3 Refills, Maintenance, 02/04/23 9:18:00 EDT, [facility] #[id number], 175.3, cm, 02/04/23 8:41:00 EDT, Height Start [...] 0 Refills, Maintenance, 04/01/23 15:46:00 EDT, Capsule, [facility], Partial fill upon patient request if the prescription is for a schedule II opioid drug., 175, cm, 03/20/23 22... Start Date: 04/01/23 Status: Ordered ZyrTEC 10 mg oral tablet See Instructions, 1 tablet By Mouth [address] scan, # 1 tablet, 0 Refills, Maintenance, 04/01/23 15:33:00 EDT, Tablet, [facility], Partial fill upon patient request [...] Team Personnel Name: Dawna Oshea RN Position: [facility] RN Member Role: Primary Care Nurse Name: Teresa Carey RN Position: S RN Member Role: Primary Care Nurse Name: Sasha Queen RN Position: S RN Member Role: Primary Care Nurse Name: Charleen Neri RN Position: [facility] RN Member Role: Primary Care Nurse Name: Min Mckenzie MD Position: [facility] Physician - Primary Care Member Role: PCP Address: Address: [address] [place] [address]- [place] Name: Vianey Gonzales NP Position: [facility] Associate Professional Member Role: Primary Care Nurse Address: Address: [address] [place] [address] Trauma and [place] [address]- [place] Name: Felecia Villegas LPN Position: S RN Member Role: Primary Care Nurse Name: Maria C Pearson RN Position: [facility] RN Member Role: Primary Care Nurse Name: Geovanna Kumari RN Position: [facility] RN Member Role: Primary Care Nurse Name: Shi Dawn RN Position: [facility] RN Member Role: Primary Care Nurse Name: Tali Paul RN Position: [facility] RN Member Role: Primary Care Nurse Name: Alicia Croft RN Position: [facility] RN Member Role: Primary Care Nurse Name: Aicha Lai RN Position: [facility] RN Member Role: Primary Care Nurse Name: Dino Fleming RN Position: [facility] RN Member Role: Primary Care Nurse Name: Luisa Mitchell RN Position: [facility] RN Member Role: Primary Care Nurse Name: Storm Gutierrez RN Position: [facility] RN Member Role: Primary Care Nurse Name: Nirav Nicholson RN Position: [facility] RN Member Role: Primary Care Nurse Name: Elaine Clark RN Position: [facility] RN Member Role: Primary Care Nurse Name: Mara Miranda RN Position: [facility] RN Member Role: Primary Care Nurse Name: Mara Daly RN Position: [facility] ED RN W/OE and Tasks Member Role: Primary Care Nurse Name: Nellie Vivas RN Position: [facility] RN Member Role: Primary Care Nurse Name: Emy Balderas LPN Position: [facility] RN Member Role: Primary Care Nurse Name: Caitlyn Anderson RN Position: [facility] RN Member Role: Primary Care Nurse Name: Lelia Clarke RN Position: [facility] RN Member Role: Primary Care Nurse Care Team Related Persons Name: TACOS VASQUEZ Address: [address] [address]
--- OUTSIDE RECORDS SUMMARY | 2024-01-05 10:01 | XMS_ITS | Continuity of Care Document ---
Author Organization [facility] Address [address] [place] [address] [address] [place] [address]- Care Team Providers Care Electrical Equipment Tester Name Role Phone Min Mckenzie MD Primary Care Physician [facility]counter [facility] Date(s): 05/24/23 - 06/23/23 [facility] [address] [place] [address]- Allergies, Adverse Reactions, Alerts Substance Reaction Severity [...] 3Location History: [facility] 4Result Comment: [id number] 5Location History: [facility] 6Location History: [...] tablet, 3 Refills, Maintenance, 02/04/23 9:18:00 EDT, [facility] #[id number], 175.3, cm, 02/04/23 8:41:00 EDT, Height Start Date: 02/04/23 Status: Ordered FLUoxetine 20 mg oral capsule 20 mg, 1, capsule, By Mouth, Daily, # 90 capsule, Refills 1, Tot. Refills 1, Maintenance, 04/27/23 14:10:00 EST, Route to Pharmacy Electronically, [facility] #[id number], Partial fill upon patient request if the prescription is for a schedule II... Start Date: 04/27/23 Status: Ordered gemfibrozil 600 mg oral tablet 1, tablet, By Mouth, 2 times a day, # 180 tablet, Refills 3, Tot. Refills 3, Maintenance, 02/04/23 9:18:00 EDT, Route to Pharmacy Electronically, [facility][id number], 175.3, cm, 02/04/23 8:41:00 EDT, Height Start Date: 02/04/23 Status: Ordered losartan 50 mg oral tablet 50 mg, 1, tablet, By Mouth, Daily, # 90 tablet, Refills 3, Tot. Refills 3, Maintenance, 02/04/23 9:19:00 EDT, Route to [facility]ically, [id number], Partial fill upon patient request if the prescription is for a schedule II opi... Start Date: 02/04/23 Stop Date: 01/30/24 Status: Ordered Metoprolol Succinate ER 50 mg oral tablet, extended release 1 tablet, By Mouth, Daily, # 90 tablet, 3 Refills, Maintenance, 02/04/23 9:18:00 EDT, [facility] #[id number], 175.3, cm, 02/04/23 8:41:00 EDT, Height Start [...] 0 Refills, Maintenance, 04/01/23 15:46:00 EDT, Capsule, [facility], Partial fill upon patient request if the prescription is for a schedule II opioid drug., 175, cm, 03/20/23 22... Start Date: 04/01/23 Status: Ordered ZyrTEC 10 mg oral tablet See Instructions, 1 tablet By Mouth [address] scan, # 1 tablet, 0 Refills, Maintenance, 04/01/23 15:33:00 EDT, Tablet, [facility], Partial fill upon patient [...] Team Personnel Name: Dawna Oshea RN Position: [facility] RN Member Role: Primary Care Nurse Name: Teresa Carey RN Position: S RN Member Role: Primary Care Nurse Name: Sasha Queen RN Position: S RN Member Role: Primary Care Nurse Name: Charleen Neri RN Position: [facility] RN Member Role: Primary Care Nurse Name: Min Mckenzie MD Position: [facility] Physician - Primary Care Member Role: PCP Address: Address: [address] [place] [address]- [place] Name: Vianey Gonzales NP Position: [facility] Associate Professional Member Role: Primary Care Nurse Address: Address: [address] [place] [address] Trauma and [place] [address]- [place] Name: Felecia Villegas LPN Position: S RN Member Role: Primary Care Nurse Name: Maria C Pearson RN Position: S RN Member Role: Primary Care Nurse Name: Geovanna Kumari RN Position: [facility] RN Member Role: Primary Care Nurse Name: Shi Dawn RN Position: [facility] RN Member Role: Primary Care Nurse Name: Tali Paul RN Position: [facility] RN Member Role: Primary Care Nurse Name: Alicia Croft RN Position: [facility] RN Member Role: Primary Care Nurse Name: Aicha Lai RN Position: [facility] RN Member Role: Primary Care Nurse Name: Dino Fleming RN Position: [facility] RN Member Role: Primary Care Nurse Name: Luisa Mitchell RN Position: [facility] RN Member Role: Primary Care Nurse Name: Storm Gutierrez RN Position: [facility] RN Member Role: Primary Care Nurse Name: Nirav Nicholson RN Position: [facility] RN Member Role: Primary Care Nurse Name: Elaine Clark RN Position: [facility] RN Member Role: Primary Care Nurse Name: Mara Miranda RN Position: [facility] RN Member Role: Primary Care Nurse Name: Mara Daly RN Position: [facility] ED RN W/OE and Tasks Member Role: Primary Care Nurse Name: Nellie Vivas RN Position: [facility] RN Member Role: Primary Care Nurse Name: Emy Balderas LPN Position: [facility] RN Member Role: Primary Care Nurse Name: Caitlyn Anderson RN Position: [facility] RN Member Role: Primary Care Nurse Name: Lelia Clarke RN Position: [facility] RN Member Role: Primary Care Nurse Care Team Related Persons Name: TACOS VASQUEZ Address: [address] [address]
--- OUTSIDE RECORDS SUMMARY | 2024-01-05 10:01 | XMS_ITS | Continuity of Care Document ---
Author Organization [facility] Riley Aki lt Address [address] [place] [address]- Care Team Providers Care Hospice Physician Name Role Phone Magaly BARNARD, Min Blackman Primary Care Physician [phone] [facility]23 - 05/06/23 [facility] [place] Adult [address] [place] [address]- Allergies, Adverse Reactions, Alerts Substance Reaction Severity [...] 3Location History: [facility] 4Result Comment: [id number] 5Location History: [facility] 6Location History: [...] tablet, 3 Refills, Maintenance, 02/04/23 9:18:00 EDT, [facility] #[id number], 175.3, cm, 02/04/23 8:41:00 EDT, Height Start Date: 02/04/23 Status: Ordered FLUoxetine 20 mg oral capsule 20 mg, 1, capsule, By Mouth, Daily, # 90 capsule, Refills 1, Tot. Refills 1, Maintenance, 04/27/23 14:10:00 EST, Route to Pharmacy Electronically, [facility] #[id number], Partial fill upon patient request if the prescription is for a schedule II... Start Date: 04/27/23 Status: Ordered gemfibrozil 600 mg oral tablet 1, tablet, By Mouth, 2 times a day, # 180 tablet, Refills 3, Tot. Refills 3, Maintenance, 02/04/23 9:18:00 EDT, Route to Pharmacy Electronically, [facility] #[id number], 175.3, cm, 02/04/23 8:41:00 EDT, Height Start Date: 02/04/23 Status: Ordered losartan 50 mg oral tablet 50 mg, 1, tablet, By Mouth, Daily, # 90 tablet, Refills 3, Tot. Refills 3, Maintenance, 02/04/23 9:19:00 EDT, Route to Pharmacy Electronically, [facility] #[id number], Partial fill upon patient request if the prescription is for a schedule II opi... Start Date: 02/04/23 Stop Date: 01/30/24 Status: Ordered Metoprolol Succinate ER 50 mg oral tablet, extended release 1 tablet, By Mouth, Daily, # 90 tablet, 3 Refills, Maintenance, 02/04/23 9:18:00 EDT, [id number], 175.3, cm, 02/04/23 8:41:00 EDT, Height Start [...] smoker entered on: 07/12/14 Sex Note * Rina Steel RN: PERFORM, SIGN, VERIFY Magaly BARNARD, Min Blackman: SIGN Event Display: Case Management Discharge Plan Authored Date: [id number] Patient: MAURO VASQUEZ Age: 67 years Sex: Male : 1955 Associated Diagnoses: None Author: Rina Steel RN Care Management Discharge Call Note Admit date 03/20/2023 Discharge date 04/02/2023 Date of contact 04/06/2023 Diagnosis SEPTIC SHOCK TRANSAMINITIS BILIARY LEAK If patient went for emergency services was this patient referred? Referred by GI D/C and Operation notes in cis. Discharge instructions were reviewed with the patient? Yes Medication reconciliation performed Yes Looks like you were recently discharged from the hospital (ED), how are you feeling? Patient denies any new or worsneing s/sx. Please tell me the problem or condition that brought you to the hospital (ED)? ABD pain Do you know what to do in case of an emergency? Yes Were you given any prescriptions to fill? Yes. Do you understand how to take your medication? Yes Other diagnostic tests/procedures ordered/recommended? Pt has a post -op on 05/04 and GI f/u on 06/02 per D/C Notes. Do you have an appointment already scheduled with your PCP? Yes Is date appropriate: Yes. Are you able to get to that appointment: Yes. Appointment scheduled? Date 04/08/2023 Scheduled by Admin staff Home Care Services requested? Yes Agency [facility] Patient contacted: Yes. Have there been any changes in your condition since discharge? No Do you have someone at home that is able to help you? Yes Is there anything else that you need addressed before your follow up appointment? No Patient Care team information Care Team Personnel Name: Dawna Oshea RN Position: [facility] RN Member Role: Primary Care Nurse Name: Teresa Carey RN Position: S RN Member Role: Primary Care Nurse Name: Sasha Queen RN Position: S RN Member Role: Primary Care Nurse Name: Charleen Neri RN Position: [facility] RN Member Role: Primary Care Nurse Name: Min Mckenzie MD Position: [facility] Physician - Primary Care Member Role: PCP Address: Address: [address] [place] [address]- Name: Vianey Gonzales NP Position: [facility] Associate Professional Member Role: Primary Care Nurse Address: Address: [address] [place] [address] Trauma and [place] [address]- Name: Felecia Villegas LPN Position: [facility] RN Member Role: Primary Care Nurse Name: Maria C Pearson RN Position: [facility] RN Member Role: Primary Care Nurse Name: Geovanna Kumari RN Position: [facility] RN Member Role: Primary Care Nurse Name: Shi Dawn RN Position: [facility] RN Member Role: Primary Care Nurse Name: Tali Paul RN Position: [facility] RN Member Role: Primary Care Nurse Name: Alicia Croft RN Position: [facility] RN Member Role: Primary Care Nurse Name: Aicha Lai RN Position: [facility] RN Member Role: Primary Care Nurse Name: Dino Fleming RN Position: [facility] RN Member Role: Primary Care Nurse Name: Luisa Mitchell RN Position: [facility] RN Member Role: Primary Care Nurse Name: Storm Gutierrez RN Position: [facility] RN Member Role: Primary Care Nurse Name: Nirav Nicholson RN Position: [facility] RN Member Role: Primary Care Nurse Name: Elaine Clark RN Position: [facility] RN Member Role: Primary Care Nurse Name: Mara Miranda RN Position: [facility] RN Member Role: Primary Care Nurse Name: Mara Daly RN Position: [facility] ED RN W/OE and Tasks Member Role: Primary Care Nurse Name: Nellie Vivas RN Position: [facility] RN Member Role: Primary Care Nurse Name: Emy Balderas LPN Position: [facility] RN Member Role: Primary Care Nurse Name: Caitlyn Anderson RN Position: [facility] RN Member Role: Primary Care Nurse Name: Lelia Clarke RN Position: [facility] RN Member Role: Primary Care Nurse Care Team Related Persons Name: TACOS VASQUEZ Address: [address] [address]
--- OUTSIDE RECORDS SUMMARY | 2024-01-05 10:01 | XMS_ITS | Continuity of Care Document ---
Author Organization [facility] Riley Aki lt Address [address] [place] [address]- Care Team Providers Care Manager Test Name Role Phone Magaly BARNARD, Min Blackman Primary Care Physician [facility]s): 01/19/23 - 02/18/23 [facility] Adult [address] [place] [address]- Allergies, Adverse Reactions, Alerts Substance Reaction Severity [...] 3Location History: [facility] 4Result Comment: [id number] 5Location History: [facility] 6Location History: [...] tablet, 3 Refills, Maintenance, 02/04/23 9:18:00 EDT, [facility] #[id number], 175.3, cm, 02/04/23 8:41:00 EDT, Height Start Date: 02/04/23 Status: Ordered docusate-senna 50 mg-8.6 mg oral capsule 1 capsule, By Mouth, 2 times a day, for 3 days, # 6 capsule, 0 Refills, Acute 02/21/23 13:24:00 EDT, 02/18/23 13:24:00 EDT, Capsule, [facility], Partial fill upon patient request if theprescription is for a schedule II opioid drug., 1 c... Start Date: 02/18/23 Stop Date: 02/21/23 Status: Ordered erythromycin 0.5% ophthalmic ointment 0.5 inches, Eyes, Both, 4 times a day, # 4 Gm, 0 Refills, Maintenance, 10/22/22 10:20:00 EDT, OphthOintment, [facility] #[id number], Partial fill upon patient request if the [...] 02/04/23 9:18:00 EDT, Route to Pharmacy Electronically, [facility] #[id number], 175.3, cm, 02/04/23 8:41:00 EDT, Height Start Date: 02/04/23 Status: Ordered losartan 50 mg oral tablet 50 mg, 1, tablet, By Mouth, Daily, # 90 tablet, Refills 3, Tot. Refills 3, Maintenance, 02/04/23 9:19:00 EDT, Route to Pharmacy Electronically, [facility] #[id number], Partial fill upon patient request if the [...] tablet, 3 Refills, Maintenance, 02/04/23 9:18:00 EDT, [facility] #[id number], 175.3, cm, 02/04/23 8:41:00 EDT, Height Start [...] 02/18/23 13:24:00 EDT, Route to Pharmacy Electronically, [facility], Partial fill upon patient request... [...] Care team information Care Team Personnel Name: Bret WINN, Sasha Position: S RN Member Role: Primary Care Nurse Name: Charleen Neri RN Position: S RN Member Role: Primary Care Nurse Name: Min Mckenzie MD Position: [facility] Physician - Primary Care Member Role: PCP Address: Address: [address] [place] [address]- [place] Name: Vianey Gonzales NP Position: [facility] Associate Professional Member Role: Primary Care Nurse Address: Address: [address] [place] [address] Trauma and [place] [address]- [place] Name: Felecia Villegas LPN Position: [facility] RN Member Role: Primary Care Nurse Name: Geovanna Kumari RN Position: [facility] RN Member Role: Primary Care Nurse Name: Tali Paul RN Position: [facility] RN Member Role: Primary Care Nurse Name: Alicia Croft RN Position: [facility] RN Member Role: Primary Care Nurse Name: Luisa Mitchell RN Position: [facility] RN Member Role: Primary Care Nurse Name: Nirav Nicholson RN Position: [facility] RN Member Role: Primary Care Nurse Name: Mara Miranda RN Position: [facility] RN Member Role: Primary Care Nurse Name: Mara Daly RN Position: [facility] ED RN W/OE and Tasks Member Role: Primary Care Nurse Name: Emy Balderas LPN Position: [facility] RN Member Role: Primary Care Nurse Care Team Related Persons Name: TACOS VASQUEZ Address: [address] [address]
--- OUTSIDE RECORDS SUMMARY | 2024-01-05 10:01 | XMS_ITS | Continuity of Care Document ---
Author Organization [facility] Address [address] [place] [address]- Care Team Providers Care Kiln Car Repairer Name Role Phone Min Mckenzie MD Primary Care Physician [phone] [facility]s): 03[facility]23 - 03/31/23 [facility] [address] [place] [address]- [place] Allergies, Adverse Reactions, Alerts Substance Reaction Severity [...] 3Location History: [facility] 4Result Comment: [id number] 5Location History: [facility] 6Location History: [...] tablet, 3 Refills, Maintenance, 02/04/23 9:18:00 EDT, [facility] #[id number], 175.3, cm, 02/04/23 8:41:00 EDT, Height Start Date: 02/04/23 Status: Ordered erythromycin 0.5% ophthalmic ointment 0.5 inches, Eyes, Both, 4 times a day, # 4 Gm, 0 Refills, Maintenance, 10/22/22 10:20:00 EDT, OphthOintment, [facility] #[id number], Partial fill upon patient request if the [...] 02/04/23 9:18:00 EDT, Route to Pharmacy Electronically, [facility] #[id number], 175.3, cm, 02/04/23 8:41:00 EDT, Height Start Date: 02/04/23 Status: Ordered losartan 50 mg oral tablet 50 mg, 1, tablet, By Mouth, Daily, # 90 tablet, Refills 3, Tot. Refills 3, Maintenance, 02/04/23 9:19:00 EDT, Route to Pharmacy Electronically, [facility] #[id number], Partial fill upon patient request if the [...] tablet, 3 Refills, Maintenance, 02/04/23 9:18:00 EDT, [facility] #[id number], 175.3, cm, 02/04/23 8:41:00 EDT, Height Start [...] Team Personnel Name: Dawna Oshea RN Position: [facility] RN Member Role: Primary Care Nurse Name: Teresa Carey RN Position: [facility] RN Member Role: Primary Care Nurse Name: Sasha Queen RN Position: [facility] RN Member Role: Primary Care Nurse Name: Charleen Neri RN Position: [facility] RN Member Role: Primary Care Nurse Name: Min Mckenzie MD Position: [facility] Physician - Primary Care Member Role: PCP Address: Address: [address] [place] [address]- Name: Vianey Gonzales NP Position: [facility] Associate Professional Member Role: Primary Care Nurse Address: Address: [address] [place] [address] Trauma [place] [address]- Name: Felecia Villegas LPN Position: [facility] RN Member Role: Primary Care Nurse Name: Geovanna Kumari RN Position: [facility] RN Member Role: Primary Care Nurse Name: Shi Dawn RN Position: [facility] RN Member Role: Primary Care Nurse Name: Tali Paul RN Position: [facility] RN Member Role: Primary Care Nurse Name: Alicia Croft RN Position: [facility] RN Member Role: Primary Care Nurse Name: Aicha Lai RN Position: [facility] RN Member Role: Primary Care Nurse Name: Dino Fleming RN Position: [facility] RN Member Role: Primary Care Nurse Name: Luisa Mitchell RN Position: [facility] RN Member Role: Primary Care Nurse Name: Storm Gutierrez RN Position: [facility] RN Member Role: Primary Care Nurse Name: Nirav Nicholson RN Position: [facility] RN Member Role: Primary Care Nurse Name: Elaine Clark RN Position: [facility] RN Member Role: Primary Care Nurse Name: Mara Miranda RN Position: [facility] RN Member Role: Primary Care Nurse Name: Mara Daly RN Position: [facility] ED RN W/OE and Tasks Member Role: Primary Care Nurse Name: Nellie Vivas RN Position: [facility] RN Member Role: Primary Care Nurse Name: Emy Balderas LPN Position: [facility] RN Member Role: Primary Care Nurse Name: Caitlyn Anderson RN Position: [facility] RN Member Role: Primary Care Nurse Name: Lelia Clarke RN Position: [facility] RN Member Role: Primary Care Nurse Care Team Related Persons Name: PEDRO TACOS Address: [address] [address]
--- OUTSIDE RECORDS SUMMARY | 2024-01-05 10:01 | XMS_ITS | Continuity of Care Document ---
Author Organization [facility] Address [address] [place] [address] [address] [place] [address]- Care Team Providers Care Pad Hand Name Role Phone Min Mckenzie MD Primary Care Physician [phone] [facility]s): [facility]/06/23 - 06/05/[address] [place] [address]- Attending Physician: Admtr, Pippa Admitting Physician: AdmtrPippa Referring Physician: Admtr, Ar8 Allergies, Adverse Reactions, [...] 3Location History: [facility] 4Result Comment: [id number] 5Location History: [facility] 6Location History: [...] tablet, 3 Refills, Maintenance, 02/04/23 9:18:00 EDT, [facility] #[id number], 175.3, cm, 02/04/23 8:41:00 EDT, Height Start Date: 02/04/23 Status: Ordered FLUoxetine 20 mg oral capsule 20 mg, 1, capsule, By Mouth, Daily, # 90 capsule, Refills 1, Tot. Refills 1, Maintenance, 04/27/23 14:10:00 EST, Route to Pharmacy Electronically, [facility] #[id number], Partial fill upon patient request if the prescription is for a schedule II... Start Date: 04/27/23 Status: Ordered gemfibrozil 600 mg oral tablet 1, tablet, By Mouth, 2 times a day, # 180 tablet, Refills 3, Tot. Refills 3, Maintenance, 02/04/23 9:18:00 EDT, [facility] to [facility]ically, [facility][id number], 175.3, cm, 02/04/23 8:41:00 EDT, Height Start Date: 02/04/23 Status: Ordered losartan 50 mg oral tablet 50 mg, 1, tablet, By Mouth, Daily, # 90 tablet, Refills 3, Tot. Refills 3, Maintenance, 02/04/23 9:19:00 EDT, [id number], Partial fill upon patient request if the prescription is for a schedule II opi... Start Date: 02/04/23 Stop Date: 01/30/24 Status: Ordered Metoprolol Succinate ER 50 mg oral tablet, extended release 1 tablet, By Mouth, Daily, # 90 tablet, 3 Refills, Maintenance, 02/04/23 9:18:00 EDT, [facility][id number], 175.3, cm, 02/04/23 8:41:00 EDT, Height Start [...] 0 Refills, Maintenance, 04/01/23 15:46:00 EDT, Capsule, [facility], Partial fill upon patient request if the prescription is for a schedule II opioid drug., 175, cm, 03/20/23 22... Start Date: 04/01/23 Status: Ordered ZyrTEC 10 mg oral tablet See Instructions, 1 tablet By Mouth [address] scan, # 1 tablet, 0 Refills, Maintenance, 04/01/23 15:33:00 EDT, Tablet, [facility], Partial fill upon patient [...] Team Personnel Name: Dawna Oshea RN Position: [facility] RN Member Role: Primary Care Nurse Name: Teresa Carey RN Position: [facility] RN Member Role: Primary Care Nurse Name: Sasha Queen RN Position: [facility] RN Member Role: Primary Care Nurse Name: Charleen Neri RN Position: [facility] RN Member Role: Primary Care Nurse Name: Min Mckenzie MD Position: [facility] Physician - Primary Care Member Role: PCP Address: Address: [address] [place] [address]- [place] Name: Vianey Gonzales NP Position: [facility] Associate Professional Member Role: Primary Care Nurse Address: Address: [address] [place] [address] Trauma and [place] [address]- [place] Name: Felecia Villegas LPN Position: [facility] RN Member Role: Primary Care Nurse Name: Maria C Pearson RN Position: [facility] RN Member Role: Primary Care Nurse Name: Geovanna Kumari RN Position: [facility] RN Member Role: Primary Care Nurse Name: Shi Dawn RN Position: [facility] RN Member Role: Primary Care Nurse Name: Tali Paul RN Position: [facility] RN Member Role: Primary Care Nurse Name: Alicia Croft RN Position: [facility] RN Member Role: Primary Care Nurse Name: Aicha Lai RN Position: [facility] RN Member Role: Primary Care Nurse Name: Dino Fleming RN Position: [facility] RN Member Role: Primary Care Nurse Name: Luisa Mitchell RN Position: [facility] RN Member Role: Primary Care Nurse Name: Storm Gutierrez RN Position: [facility] RN Member Role: Primary Care Nurse Name: Nirav Nicholson RN Position: [facility] RN Member Role: Primary Care Nurse Name: Elaine Clark RN Position: [facility] RN Member Role: Primary Care Nurse Name: Mara Miranda RN Position: [facility] RN Member Role: Primary Care Nurse Name: Mara Daly RN Position: [facility] ED RN W/OE and Tasks Member Role: Primary Care Nurse Name: Nellie Vivas RN Position: [facility] RN Member Role: Primary Care Nurse Name: Emy Balderas LPN Position: [facility] RN Member Role: Primary Care Nurse Name: Caitlyn Anderson RN Position: [facility] RN Member Role: Primary Care Nurse Name: Lelia Clarke RN Position: [facility] RN Member Role: Primary Care Nurse Care Team Related Persons Name: TACOS VASQUEZ Address: [address] [address]
--- OUTSIDE RECORDS SUMMARY | 2024-01-05 10:01 | XMS_ITS | Continuity of Care Document ---
Author Organization [facility]ki [facility] Address [address] [place] [address]- Care Team Providers Care Cryptologic Technician Name Role Phone Magaly BARNARD, Min Blackman Primary Care Physician [facility] - 04/15/23 [facility] Adult [address] [place] [address]- Encounter Diagnosis Sepsis(Discharge Diagnosis) - 04/08/23 Abscess(Discharge Diagnosis) - 04/08/23 JULIET (generalized anxiety disorder)(Discharge Diagnosis) - 04/08/23 Depression, major, in remission(Discharge Diagnosis) - 04/08/23 Attending Physician: Luisa Jorge NP Allergies, Adverse Reactions, Alerts Substance Reaction Severity [...] Vaccine (oldterm) 03/05/20 Recorde d tetanus/diphtheria/pertussis, acel(Tdap) 6/11/19 Given tetanus/diphtheria/pertussis, acel(Tdap) 5 08/13/09 Recorded Zoster Vaccine Live 6 05/05/12 Recorded pneumococcal 23-valent vaccine 7 08/13/09 Recorded Hepatitis A Vaccine (oldterm) 8 08/29/07 Given Hepatitis A Vaccine (oldterm) 02/02/07 Given tetanus-diphtheria toxoids (Td) 02/02/07 Given 1Location History: [facility] 2Location History: [facility] 3Location History: [facility] 4Result Comment: [id number] 5Location History: [facility] 6Location History: [...] tablet, 3 Refills, Maintenance, 02/04/23 9:18:00 EDT, [facility] #[id number], 175.3, cm, 02/04/23 8:41:00 EDT, Height Start Date: 02/04/23 Status: Ordered FLUoxetine 20 mg oral capsule 20 mg, 1, capsule, By Mouth, Daily, # 30 capsule, Refills 0, Tot. Refills 0, Maintenance, 04/08/23 13:11:00 EDT, Route to Pharmacy Electronically, [facility] #[id number], Partial fill upon patient request if the prescription is for a schedule II... Start Date: 04/08/23 Status: Ordered gemfibrozil 600 mg oral tablet 1, tablet, By Mouth, 2 times a day, # 180 tablet, Refills 3, Tot. Refills 3, Maintenance, 02/04/23 9:18:00 EDT, Route to Pharmacy Electronically, [facility] #[id number], 175.3, cm, 02/04/23 8:41:00 EDT, Height Start Date: 02/04/23 Status: Ordered losartan 50 mg oral tablet 50 mg, 1, tablet, By Mouth, Daily, # 90 tablet, Refills 3, Tot. Refills 3, Maintenance, 02/04/23 9:19:00 EDT, Route to [facility]ically[id number], Partial fill upon patient request if the prescription is for a schedule II opi... Start Date: 02/04/23 Stop Date: 01/30/24 Status: Ordered Medrol 32 mg oral tablet See Instructions, take 32 mg by mouth [address] scan, then take another 32 mg by mouth 2hours prior to CT scan., # 2 tablet, 0 Refills, Acute 04/17/23 16:00:00 EDT, 04/01/23 15:31:00 EDT,[facility], Partial fill upon patient... Start Date: 04/01/23 Stop Date: 04/17/23 Status: Ordered Metoprolol Succinate ER 50 mg oral tablet, extended release 1 tablet, By Mouth, Daily, # 90 tablet, 3 Refills, Maintenance, 02/04/23 9:18:00 EDT, [id number], 175.3, cm, 02/04/23 8:41:00 EDT, Height Start [...] 0 Refills, Maintenance, 04/01/23 15:46:00 EDT, Capsule, [facility], Partial fill upon patient request if the prescription is for a schedule II opioid drug., 175, cm, 03/20/23 22... Start Date: 04/01/23 Status: Ordered ZyrTEC 10 mg oral tablet See Instructions, 1 tablet By Mouth [address] scan, # 1 tablet, 0 Refills, Maintenance, 04/01/23 15:33:00 EDT, Tablet, [facility], Partial fill upon patient request [...] Dates Health Status Cl inical Service Informant Sepsis Discharge Diagnosis 04/08/23 Abscess Discharge Diagnosis 04/08/23 JULIET (generalized anxiety disorder) Discharge Diagnosis 04/08/23 Depression, major, in remission Discharge Diagnosis 04/08/23 Vital Signs Most recent to oldest [Reference Range]: 1 Height 175 cm (04/08/23 12:53 PM) Weight 87.4 kg (04/08/23 12:53 PM) Oxygen Saturation [94-100 %] 97 % (04/08/23 12:53 PM) Pulse Rate [55-90 bpm] 66 bpm (04/08/23 12:53 PM) Body Mass Index [18.5-24.99 kg/m2] 28.54 kg/m2 *H* (04/08/23 12:53 PM) Blood Pressure [90-138/55-84 mm Hg] 128/ 64mm Hg (04/08/23 12:53 PM) Respiratory Rate [16-30 br/min] 16 br/mi n (04/08/23 12:53 PM) Temperature [96.8-100.4 DegF] 98.3 DegF (04/08/23 12:53 PM) Mode of Delivery (Oxygen) Room air (04/08/23 12:53 PM) Blood pressure sites Arm, right (04/08/23 12:53 PM) Temperature Route Oral (04/08/23 12:53 PM) Weight Obtained Via Standing scale (04/08/23 12:53 PM) Social History Social History Type Response Smoking Status Never smoker entered on: 07/12/14 Sex Patient Care team information Care Team Personnel Name: Dawna Oshea RN Position: [facility] RN Member Role: Primary Care Nurse Name: Teresa Carey RN Position: [facility] RN Member Role: Primary Care Nurse Name: Sasha Queen RN Position: S RN Member Role: Primary Care Nurse Name: Charleen Neri RN Position: [facility] RN Member Role: Primary Care Nurse Name: Min Mckenzie MD Position: [facility] Physician - Primary Care Member Role: PCP Address: Address: [address] [place] [id number]- Name: Vianey Gonzales NP Position: [facility] Associate Professional Member Role: Primary Care Nurse Address: Address: [address] [place] [address] Trauma and [place] [address]- Name: Felecia Villegas LPN Position: S RN [...] Care Nurse Name: Alicia Croft RN Position: S RN Member Role: Primary [...] Care Nurse Care Team Related Persons Name: CIROCORINE TACOS Address: [address] [address]
--- OUTSIDE RECORDS SUMMARY | 2024-01-05 10:01 | XMS_ITS | Continuity of Care Document ---
Author Organization [facility] Address [address] [place] [address] ve [address] [place] [address]- Care Team Providers Care Carrier Blower Name Role Phone Min Mckenzie MD Primary Care Physician [phone] [facility] 07[facility]23 - 07/08/[address] [place] [address]- Attending Physician: Prateek Kenyon MD Allergies, Adverse [...] 3Location History: [facility] 4Result Comment: [id number] 5Location History: [facility] 6Location History: [...] tablet, 3 Refills, Maintenance, 02/04/23 9:18:00 EDT, [facility] #[id number], 175.3, cm, 02/04/23 8:41:00 EDT, Height Start Date: 02/04/23 Status: Ordered FLUoxetine 20 mg oral capsule 20 mg, 1, capsule, By Mouth, Daily, # 90 capsule, Refills 1, Tot. Refills 1, Maintenance, 04/27/23 14:10:00 EST, Route to Pharmacy Electronically, [facility] #[id number], Partial fill upon patient request if the prescription is for a schedule II... Start Date: 04/27/23 Status: Ordered gemfibrozil 600 mg oral tablet 1, tablet, By Mouth, 2 times a day, # 180 tablet, Refills 3, Tot. Refills 3, Maintenance, 02/04/23 9:18:00 EDT, Route to Pharmacy Electronically, [facility] #[id number], 175.3, cm, 02/04/23 8:41:00 EDT, Height Start Date: 02/04/23 Status: Ordered losartan 50 mg oral tablet 50 mg, 1, tablet, By Mouth, Daily, # 90 tablet, Refills 3, Tot. Refills 3, Maintenance, 02/04/23 9:19:00 EDT, Route to Pharmacy Electronically, [facility] #[id number], Partial fill upon patient request if the prescription is for a schedule II opi... Start Date: 02/04/23 Stop Date: 01/30/24 Status: Ordered Metoprolol Succinate ER 50 mg oral tablet, extended release 1 tablet, By Mouth, Daily, # 90 tablet, 3 Refills, Maintenance, 02/04/23 9:18:00 EDT, [facility] #[id number], 175.3, cm, 02/04/23 8:41:00 EDT, Height Start [...] 0 Refills, Maintenance, 04/01/23 15:46:00 EDT, Capsule, [facility], Partial fill upon patient request if the prescription is for a schedule II opioid drug., 175, cm, 03/20/23 22... Start Date: 04/01/23 Status: Ordered ZyrTEC 10 mg oral tablet See Instructions, 1 tablet By Mouth [address] scan, # 1 tablet, 0 Refills, Maintenance, 04/01/23 15:33:00 EDT, Tablet, [facility], Partial fill upon patient [...] oldest [Reference Range]: 1 Height 175 cm (07/01/23 3:23 PM) Weight 92.4 kg (07/01/23 3:23 PM) Pulse Rate [55-90 bpm] 69 bpm (07/01/23 3:23 PM) Body Mass Index [18.5-24.99 kg/m2] 30.17 kg/m2 *>HHI* (07/01/23 3:23 PM) Blood Pressure [90-138/55-84 mm Hg] 148/ 79mm Hg *H* (07/01/23 3:23 PM) Respiratory Rate [16-30 br/min] 16 br/mi n (07/01/23 3:23 PM) Temperature [96.8-100.4 DegF] 96.8 DegF (07/01/23 3:23 PM) Blood pressure sites Arm, right (07/01/23 3:23 PM) Temperature Route Temporal (07/01/23 3:23 PM) Weight Obtained Via Standing scale (07/01/23 3:23 PM) Social History Social History Type Response Smoking Status Never smoker entered on: 07/12/14 Sex Patient Care team information Care Team Personnel Name: Dawna Oshea RN Position: [facility] RN Member Role: Primary Care Nurse Name: Teresa Carey RN Position: [facility] RN Member Role: Primary Care Nurse Name: Sasha Queen RN Position: [facility] RN Member Role: Primary Care Nurse Name: Charleen Neri RN Position: [facility] RN Member Role: Primary Care Nurse Name: Min Mckenzie MD Position: [facility] Physician - Primary Care Member Role: PCP Address: Address: [address] [place] [address]- [place] Name: Vianey Gonzales NP Position: [facility] Associate Professional Member Role: Primary Care Nurse Address: Address: [address] [place] [address] Trauma [place] [address]- Name: Felecia Villegas LPN Position: [facility] RN Member Role: Primary Care Nurse Name: Maria C Pearson RN Position: [facility] RN Member Role: Primary Care Nurse Name: Geovanna Kumari RN Position: [facility] RN Member Role: Primary Care Nurse Name: Shi Dawn RN Position: [facility] RN Member Role: Primary Care Nurse Name: Tali Paul RN Position: [facility] RN Member Role: Primary Care Nurse Name: Alicia Croft RN Position: [facility] RN Member Role: Primary Care Nurse Name: Aicha Lai RN Position: [facility] RN Member Role: Primary Care Nurse Name: Dino Fleming RN Position: [facility] RN Member Role: Primary Care Nurse Name: Luisa Mitchell RN Position: [facility] RN Member Role: Primary Care Nurse Name: Storm Gutierrez RN Position: [facility] RN Member Role: Primary Care Nurse Name: Nriav Nicholson RN Position: [facility] RN Member Role: Primary Care Nurse Name: Elaine Clark RN Position: [facility] RN Member Role: Primary Care Nurse Name: Mara Miranda RN Position: [facility] RN Member Role: Primary Care Nurse Name: Mara Daly RN Position: [facility] ED RN W/OE and Tasks Member Role: Primary Care Nurse Name: Nellie Vivas RN Position: [facility] RN Member Role: Primary Care Nurse Name: Emy Balderas LPN Position: S RN Member Role: Primary Care Nurse Name: Caitlyn Anderson RN Position: S RN Member Role: Primary Care Nurse Name: Lelia Clarke RN Position: [facility] RN Member Role: Primary Care Nurse Care Team Related Persons Name: TACOS VASQUEZ Address: [address] [address]
--- OUTSIDE RECORDS SUMMARY | 2024-01-05 10:01 | XMS_ITS | Continuity of Care Document ---
Author Organization [facility] Address [address] [place] [address]- Care Team Providers Care Tool Polisher Name Role Phone Magaly BARNARD, Min Blackman Primary Care Physician [phone] [facility] 12[facility]21[facility]22 - 01/20/23 [facility] [address] [place] [address]- Allergies, Adverse Reactions, Alerts Substance Reaction Severity Status Contrast Dye 1 hives Active 1IODINATED Immunizations Given and Recorded Vaccine Date Status Refusal Reason SARS-CoV-2 (COVID-19) mRNA BNT-162b2 vac 07/10/21 Given influenza virus vaccine, inactivated 07/10/21 Give n influenza virus vaccine, inactivated 02/19/19 Rigoberto rded influenza virus vaccine, inactivated 03/25/18 Riogberto rded influenza virus vaccine, inactivated 05/25/17 Give [...] 3Location History: [facility] 4Result Comment: [id number] 5Location History: [facility] 6Location History: [...] tablet, 3 Refills, Maintenance, 08/17/22 11:12:00 EST, [facility] #[id number], 175.3, cm, 08/17/22 10:47:00 EST, Height, 98.4, [...] 0 Refills, Maintenance, 10/22/22 10:20:00 EDT, OphthOintment, [facility] #[id number], Partial fill upon patient request if the [...] 08/17/22 11:12:00 EST, Route to Pharmacy Electronically, [facility] #[id number], 175.3, cm, 08/17/22 10:47:00 EST, Height, 98.4, kg, 09/12/20 8:51:00 EDT, D... Start Date: 08/17/22 Status: Ordered hydroCHLOROthiazide 12.5 mg oral capsule 1 capsule, By Mouth, Daily, # 90 capsule, 3 Refills, 08/17/22 11:12:00 EST, [facility] #[id number], 175.3, cm, 08/17/22 10:47:00 EST, Height, 98.4, kg, 09/12/20 8:51:00 EDT, Dry Weight Start Date: 08/17/22 Status: Ordered lisinopril 20 mg oral tablet 1, tablet, By Mouth, Daily, # 90 tablet, Refills 3, Tot. Refills 3, Maintenance, 08/17/22 11:12:00 EST, Route to Pharmacy Electronically, [facility] #[id number], 175.3, cm, 08/17/22 10:47:00 EST, Height, 98.4, [...] tablet, 3 Refills, Maintenance, 08/17/22 11:12:00 EST, [facility] #[id number], 175.3, cm, 08/17/22 10:47:00 EST, Height, 98.4, [...] Supply Start Date: 01/14/23 Status: Ordered Saw [place] By Mouth, 0 Refills, Maintenance, 08/17/22 11:05:00 [...] Active Sleep apnea Confirmed Active 1STAGE 2 [address]674 angioplasty with atherectomy. 2004 angioplasty with stent 3WITH BLEEDING Social History Social History Type Response Smoking Status Never smoker entered on: 07/12/14 Sex Patient Care team information Care Team Personnel Name: Charleen Neri RN Position: [facility] RN Member Role: Primary Care Nurse Name: Min Mckenzie MD Position: [facility] Physician - Primary Care Member Role: PCP Address: Address: [address] [place] [address]- Name: Vianey Gonzales NP Position: [facility] Associate Professional Member Role: Primary Care Nurse Address: Address: [address] [place] [address] Trauma and [place] [address]- [place] Name: Mara Daly RN Position: [facility] ED RN W/OE and Tasks Member Role: Primary Care Nurse Care Team Related Persons Name: MIGUELINATACOS Rogel Address: [place] [address] [place] [address]
--- OUTSIDE RECORDS SUMMARY | 2024-01-05 10:02 | XMS_ITS | Continuity of Care Document ---
Author Organization [facility] Address [address] [place] [address]- Care Team Providers Care Ladle Liner Name Role Phone Min Mckenzie MD Primary Care Physician [facility] 01[facility]14[facility]23 - 02/13/23 [facility] Adult [address] [place] [address]- Allergies, Adverse Reactions, Alerts Substance Reaction Severity [...] 3Location History: [facility] 4Result Comment: [id number] 5Location History: [facility] 6Location History: [...] tablet, 3 Refills, Maintenance, 02/04/23 9:18:00 EDT, [facility] #[id number], 175.3, cm, 02/04/23 8:41:00 EDT, Height Start Date: 02/04/23 Status: Ordered erythromycin 0.5% ophthalmic ointment 0.5 inches, Eyes, Both, 4 times a day, # 4 Gm, 0 Refills, Maintenance, 10/22/22 10:20:00 EDT, OphthOintment, [facility] #[id number], Partial fill upon patient request if the [...] 02/04/23 9:18:00 EDT, Route to Pharmacy Electronically, [facility] #[id number], 175.3, cm, 02/04/23 8:41:00 EDT, Height Start Date: 02/04/23 Status: Ordered hydroCHLOROthiazide 12.5 mg oral capsule 1 capsule, By Mouth, Daily, # 90 capsule, 3 Refills, 02/04/23 9:18:00 EDT, [facility] #[id number], 175.3, cm, 02/04/23 8:41:00 EDT, Height Start Date: 02/04/23 Status: Ordered losartan 50 mg oral tablet 50 mg, 1, tablet, By Mouth, Daily, # 90 tablet, Refills 3, Tot. Refills 3, Maintenance, 02/04/23 9:19:00 EDT, Route to Pharmacy Electronically, [facility] #[id number], Partial fill upon patient request if the [...] tablet, 3 Refills, Maintenance, 02/04/23 9:18:00 EDT, [facility] #[id number], 175.3, cm, 02/04/23 8:41:00 EDT, Height Start [...] Height Start Date: 02/04/23 Status: Ordered Saw [place] By Mouth, 0 Refills, Maintenance, 08/17/22 11:05:00 [...] Team Personnel Name: Sasha Queen RN Position: [facility] RN Member Role: Primary Care Nurse Name: Charleen Neri RN Position: [facility] RN Member Role: Primary Care Nurse Name: Min Mckenzie MD Position: [facility] Physician - Primary Care Member Role: PCP Address: Address: [address] [place] [id number]- [place] Name: Vianey Gonzales NP Position: [facility] Associate Professional Member Role: Primary Care Nurse Address: Address: [address] [place] [address] Trauma and [place] [address]- [place] Name: Felecia Villegas LPN Position: [facility] RN Member Role: Primary Care Nurse Name: Tali Paul RN Position: [facility] RN Member Role: Primary Care Nurse Name: Alicia Croft RN Position: [facility] RN Member Role: Primary Care Nurse Name: Luisa Mitchell RN Position: [facility] RN Member Role: Primary Care Nurse Name: Nirav Nicholson RN Position: [facility] RN Member Role: Primary Care Nurse Name: Mara Miranda RN Position: [facility] RN Member Role: Primary Care Nurse Name: Mara Daly RN Position: [facility] ED RN W/OE and Tasks Member Role: Primary Care Nurse Name: Emy Balderas LPN Position: [facility] RN Member Role: Primary Care Nurse Care Team Related Persons Name: TACOS VASQUEZ Address: [address] [address]
--- OUTSIDE RECORDS SUMMARY | 2024-01-05 10:02 | XMS_ITS | Continuity of Care Document ---
Author Organization [facility] Aki lt Address [address] [place] [address]- Care Team Providers Care Customer Acquisition Specialist Name Role Phone Min Mckenzie MD Primary Care Physician [facility]23 - 04/14/23 [facility] Adult [address] [place] [address]- Allergies, Adverse Reactions, Alerts Substance Reaction Severity Status Contrast Dye 1 hives Active 1IODINATED Immunizations Given and Recorded Vaccine Date Status Refusal Reason pneumococcal 20-valent conjugate vaccine 02/04/23 Given SARS-CoV-2 (COVID-19) mRNA BNT-162b2 vac 07/10/21 Given influenza virus vaccine, inactivated 07/10/21 Give n influenza virus vaccine, inactivated 02/19/19 Riogberto rded influenza virus vaccine, inactivated 03/25/18 Rigoberto [...] 3Location History: [facility] 4Result Comment: [id number] 5Location History: [facility] 6Location History: [...] tablet, 3 Refills, Maintenance, 02/04/23 9:18:00 EDT, [facility] #[id number], 175.3, cm, 02/04/23 8:41:00 EDT, Height Start Date: 02/04/23 Status: Ordered Augmentin 875 mg-125 mg oral tablet 1 tablet, By Mouth, Every 8 hours, for 14 days, # 42 tablet, 0 Refills, Acute 04/15/23 15:27:00 EDT, 04/01/23 15:27:00 EDT, Tablet, [facility], Partial fill upon patient request if the prescription is for a schedule II opioid drug., 175,... Start Date: 04/01/23 Stop Date: 04/15/23 Status: Ordered FLUoxetine 20 mg oral capsule 20 mg, 1, capsule, By Mouth, Daily, # 30 capsule, Refills 0, Tot. Refills 0, Maintenance, 04/08/23 13:11:00 EDT, Route to Pharmacy Electronically, [facility] #[id number], Partial fill upon patient request if the prescription is for a schedule II... Start Date: 04/08/23 Status: Ordered gemfibrozil 600 mg oral tablet 1, tablet, By Mouth, 2 times a day, # 180 tablet, Refills 3, Tot. Refills 3, Maintenance, 02/04/23 9:18:00 EDT, Route to Pharmacy Electronically, [facility] #[id number], 175.3, cm, 02/04/23 8:41:00 EDT, Height Start Date: 02/04/23 Status: Ordered losartan 50 mg oral tablet 50 mg, 1, tablet, By Mouth, Daily, # 90 tablet, Refills 3, Tot. Refills 3, Maintenance, 02/04/23 9:19:00 EDT, Route to Pharmacy Electronically, [facility] #[id number], Partial fill upon patient request if the prescription is for a schedule II opi... Start Date: 02/04/23 Stop Date: 01/30/24 Status: Ordered Medrol 32 mg oral tablet See Instructions, take 32 mg by mouth [address] scan, then take another 32 mg by mouth 2hours prior to CT scan., # 2 tablet, 0 Refills, Acute 04/17/23 16:00:00 EDT, 04/01/23 15:31:00 EDT,[facility], Partial fill upon patient... Start Date: 04/01/23 Stop Date: 04/17/23 Status: Ordered Metoprolol Succinate ER 50 mg oral tablet, extended release 1 tablet, By Mouth, Daily, # 90 tablet, 3 Refills, Maintenance, 02/04/23 9:18:00 EDT, [facility] #[id number], 175.3, cm, 02/04/23 8:41:00 EDT, Height Start [...] 0 Refills, Maintenance, 04/01/23 15:46:00 EDT, Capsule, [facility], Partial fill upon patient request if the prescription is for a schedule II opioid drug., 175, cm, 03/20/23 22... Start Date: 04/01/23 Status: Ordered ZyrTEC 10 mg oral tablet See Instructions, 1 tablet By Mouth [address] scan, # 1 tablet, 0 Refills, Maintenance, 04/01/23 15:33:00 EDT, Tablet, [facility], Partial fill upon patient request [...] Active Sleep apnea Confirmed Active 1STAGE 2 08646 angioplasty with atherectomy. 2004 angioplasty with stent 3WITH BLEEDING Social History Social History Type Response Smoking Status Never smoker entered on: 07/12/14 Sex Patient Care team information Care Team Personnel Name: Dawna Oshea RN Position: [facility] RN Member Role: Primary Care Nurse Name: Teresa Carey RN Position: [facility] RN Member Role: Primary Care Nurse Name: Sasha Queen RN Position: [facility] RN Member Role: Primary Care Nurse Name: Charleen Neri RN Position: [facility] RN Member Role: Primary Care Nurse Name: Min Mckenzie MD Position: [facility] Physician - Primary Care Member Role: PCP Address: Address: [address] [facility] [place] [address]- [place] Name: Vianey Gonzales NP Position: [facility] Associate Professional Member Role: Primary Care Nurse Address: Address: [address] [place] [address] Trauma [facility] [place] [address]- [place] Name: Felecia Villegas LPN Position: [facility] RN Member Role: Primary Care Nurse Name: Maria C Pearson RN Position: [facility] RN Member Role: Primary Care Nurse Name: Geovanna Kumari RN Position: [facility] RN Member Role: Primary Care Nurse Name: Shi Dawn RN Position: [facility] RN Member Role: Primary Care Nurse Name: Tali Paul RN Position: [facility] RN Member Role: Primary Care Nurse Name: Alicia Croft RN Position: [facility] RN Member Role: Primary Care Nurse Name: Aicha Lai RN Position: [facility] RN Member Role: Primary Care Nurse Name: Dino Fleming RN Position: [facility] RN Member Role: Primary Care Nurse Name: Luisa Mitchell RN Position: [facility] RN Member Role: Primary Care Nurse Name: Storm Gutierrez RN Position: [facility] RN Member Role: Primary Care Nurse Name: Nirav Nicholson RN Position: [facility] RN Member Role: Primary Care Nurse Name: Elaine Clark RN Position: [facility] RN Member Role: Primary Care Nurse Name: Mara Miranda RN Position: [facility] RN Member Role: Primary Care Nurse Name: Mara Daly RN Position: [facility] ED RN W/OE and Tasks Member Role: Primary Care Nurse Name: Nellie Vivas RN Position: [facility] RN Member Role: Primary Care Nurse Name: Emy Balderas LPN Position: [facility] RN Member Role: Primary Care Nurse Name: Caitlyn Anderson RN Position: [facility] RN Member Role: Primary Care Nurse Name: Lelia Clarke RN Position: [facility] RN Member Role: Primary Care Nurse Care Team Related Persons Name: TACOS VASQUEZ Address: [address] [address]
--- OUTSIDE RECORDS SUMMARY | 2024-01-05 10:02 | XMS_ITS | Continuity of Care Document ---
Author Organization [facility] Aki lt Address [address] [place] [address]- Care Team Providers Care Stone Gang Sawyer Name Role Phone Min Mckenzie MD Primary Care Physician [phone] [facility] 08[facility]03[facility]23 - 09/02/23 [facility] Adult [address] [place] [address]- Allergies, Adverse Reactions, Alerts Substance Reaction Severity [...] 3Location History: [facility] 4Result Comment: [id number] 5Location History: [facility] 6Location History: [...] tablet, 3 Refills, Maintenance, 02/04/23 9:18:00 EDT, [facility] #[id number], 175.3, cm, 02/04/23 8:41:00 EDT, Height Start Date: 02/04/23 Status: Ordered FLUoxetine 20 mg oral capsule 20 mg, 1, capsule, By Mouth, Daily, # 90 capsule, Refills 1, Tot. Refills 1, Maintenance, 08/03/23 13:20:00 EST, Route to Pharmacy Electronically, [facility] #[id number], Partial fill upon patient request if the prescription is for a schedule II... Start Date: 08/03/23 Status: Ordered gemfibrozil 600 mg oral tablet 1, tablet, By Mouth, 2 times a day, # 180 tablet, Refills 3, Tot. Refills 3, Maintenance, 02/04/23 9:18:00 EDT, Route to Pharmacy Electronically, [facility] #[id number], 175.3, cm, 02/04/23 8:41:00 EDT, Height Start Date: 02/04/23 Status: Ordered losartan 50 mg oral tablet 50 mg, 1, tablet, By Mouth, Daily, # 90 tablet, Refills 3, Tot. Refills 3, Maintenance, 02/04/23 9:19:00 EDT, Route to Pharmacy Electronically, [id number], Partial fill upon patient request if the prescription is for a schedule II opi... Start Date: 02/04/23 Stop Date: 01/30/24 Status: Ordered Metoprolol Succinate ER 50 mg oral tablet, extended release 1 tablet, By Mouth, Daily, # 90 tablet, 3 Refills, Maintenance, 02/04/23 9:18:00 EDT, [facility][id number], 175.3, cm, 02/04/23 8:41:00 EDT, Height Start [...] 0 Refills, Maintenance, 04/01/23 15:46:00 EDT, Capsule, [facility], Partial fill upon patient request if the prescription is for a schedule II opioid drug., 175, cm, 03/20/23 22... Start Date: 04/01/23 Status: Ordered ZyrTEC 10 mg oral tablet See Instructions, 1 tablet By Mouth [address] scan, # 1 tablet, 0 Refills, Maintenance, 04/01/23 15:33:00 EDT, Tablet, [facility], Partial fill upon patient request [...] Team Personnel Name: Dawna Oshea RN Position: [facility] RN Member Role: Primary Care Nurse Name: Teresa Carey RN Position: S RN Member Role: Primary Care Nurse Name: Sasha Queen RN Position: [facility] RN Member Role: Primary Care Nurse Name: Charleen Neri RN Position: [facility] RN Member Role: Primary Care Nurse Name: Min Mckenzie MD Position: [facility] Physician - Primary Care Member Role: PCP Address: Address: [address] [place] [address]- [place] Name: Vianey Gonzales NP Position: [facility] Associate Professional Member Role: Primary Care Nurse Address: Address: [address] [place] [address] Trauma [place] [address]- Name: Felecia Villegas LPN Position: S RN Member Role: Primary Care Nurse Name: Maria C Pearson RN Position: S RN Member Role: Primary Care Nurse Name: Geovanna Kumari RN Position: [facility] RN Member Role: Primary Care Nurse Name: Shi Dawn RN Position: [facility] RN Member Role: Primary Care Nurse Name: Tali Paul RN Position: [facility] RN Member Role: Primary Care Nurse Name: Alicia Croft RN Position: [facility] RN Member Role: Primary Care Nurse Name: Aicha Lai RN Position: [facility] RN Member Role: Primary Care Nurse Name: Dino Fleming RN Position: [facility] RN Member Role: Primary Care Nurse Name: Luisa Mitchell RN Position: [facility] RN Member Role: Primary Care Nurse Name: Nirav Nicholson RN Position: [facility] RN Member Role: Primary Care Nurse Name: Mara Miranda RN Position: [facility] RN Member Role: Primary Care Nurse Name: Mara Daly RN Position: [facility] ED RN W/OE and Tasks Member Role: Primary Care Nurse Name: Nellie Vivas RN Position: [facility] RN Member Role: Primary Care Nurse Name: Emy Balderas LPN Position: [facility] RN Member Role: Primary Care Nurse Name: Caitlyn Anderson RN Position: [facility] RN Member Role: Primary Care Nurse Name: Lelia Clarke RN Position: [facility] RN Member Role: Primary Care Nurse Care Team Related Persons Name: TACOS VASQUEZ Address: [address] [address]
--- OUTSIDE RECORDS SUMMARY | 2024-01-05 10:02 | XMS_ITS | Continuity of Care Document ---
Author Organization [facility] Aki lt Address [address] [place] [address]- Care Team Providers Care Citrus Fruit Packer Name Role Phone Magaly BARNARD, Min Blackman Primary Care Physician [phone] [facility] 08[facility]17[facility]22 - 09/16/22 [facility] Adult [address] [place] [address]- Attending Physician: Admtr, Ar8 Admitting Physician: Admtr, Ar8 Referring Physician: Admtr, Ar8 Allergies, Adverse Reactions, [...] 3Location History: [facility] 4Result Comment: [id number] 5Location History: [facility] 6Location History: [...] tablet, 3 Refills, Maintenance, 08/17/22 11:12:00 EST, [facility] #[id number], 175.3, cm, 08/17/22 10:47:00 EST, Height, 98.4, kg, 09/12/20 8:51:00 EDT, Dry Weight Start Date: 08/17/22 Status: Ordered Fish Oil 1200 mg oral capsule 1 capsule = 1,200 mg, By Mouth, Daily, 0 Refills, Maintenance, 04/13/14 12:24:12 Start Date: 04/13/14 Status: Ordered gemfibrozil 600 mg oral tablet 1, tablet, By Mouth, 2 times a day, # 180 tablet, Refills 3, Tot. Refills 3, Maintenance, 08/17/22 11:12:00 EST, Route to Pharmacy Electronically, [facility] #[id number], 175.3, cm, 08/17/22 10:47:00 EST, Height, 98.4, kg, 09/12/20 8:51:00 EDT, D... Start Date: 08/17/22 Status: Ordered hydroCHLOROthiazide 12.5 mg oral capsule 1 capsule, By Mouth, Daily, # 90 capsule, 3 Refills, 08/17/22 11:12:00 EST, [facility] #[id number], 175.3, cm, 08/17/22 10:47:00 EST, Height, 98.4, kg, 09/12/20 8:51:00 EDT, Dry Weight Start Date: 08/17/22 Status: Ordered lisinopril 20 mg oral tablet 1, tablet, By Mouth, Daily, # 90 tablet, Refills 3, Tot. Refills 3, Maintenance, 08/17/22 11:12:00 EST, Route to Pharmacy Electronically, [facility] #[id number], 175.3, cm, 08/17/22 10:47:00 EST, Height, 98.4, kg, 09/12/20 8:51:00 EDT, Dry Weight Start Date: 08/17/22 Status: Ordered Metoprolol Succinate ER 50 mg oral tablet, extended release 1 tablet, By Mouth, Daily, # 90 tablet, 3 Refills, Maintenance, 08/17/22 11:12:00 EST, [facility] #[id number], 175.3, cm, 08/17/22 10:47:00 EST, Height, 98.4, [...] Weight Start Date: 08/17/22 Status: Ordered [place] By Mouth, 0 Refills, Maintenance, 08/17/22 11:05:00 [...] Procedure Date Related Diagnosis Body Site Status CT of abdomen and pelvis 1 03/15/14 Completed Colonoscopy 11/06/07 Completed Ultrasound 2 11/26/06 Completed Endoscopy of GI tract 3 10/01/06 C ompleted Angioplasty balloon catheter Completed Lithotripsy Completed 1H/O RECTAL CA 2ABDOMEN D/T ELEVATED LFT'S [facility] 3UPPER GI [facility] Social History Social History Type Response Smoking Status Never smoker entered on: 07/12/14 Sex Note * Event Display: Cardiology Office Note, Non-BH Authored Date: * Event Display: X-Ray Chest, Non- BH Authored Date: * Event Display: Cardiology Office Note, Non-BH Authored Date: * Event Display: Non BH Lab Results Authored Date: * Event Display: Non BH Lab Results Authored Date: * Event Display: MRI Knee, Non- BH Authored Date: * Event Display: Cardiology Office Note, Non-BH Authored Date: * Event Display: Non BH Cardiovascular Results Authored Date: * Event Display: Non BH Lab Results Authored Date: * Marisela Patel: PERFORM, SIGN, VERIFY Event Display: Case Management Discharge Plan Authored Date: Patient: MAURO VASQUEZ Age: 63 years Sex: Male : 1955 Associated Diagnoses: None Author: Marisela Patel Care Management Discharge Call Note Discharge date 11/29/2018 Date of contact 11/30/2018 Diagnosis scalp lac Discharge instructions were reviewed with the patient? Yes Medication reconciliation performed Yes Looks like you were recently discharged from the hospital (ED), how are you feeling? spoke with patient has a bad headache advised it may be concussion and he needs to rest pt is out and about and not resting but is not listening to Please tell me the problem or condition that brought you to the hospital (ED)? scallp lac Do you know what to do in case of an emergency? yes Were you given any prescriptions to fill? Yes. Do you understand how to take your medication? Yes Do you have an appointment already scheduled with your PCP? No Is date appropriate: will call back. * Event Display: Cardiovascular Result Scanned Authored Date: * Event Display: Non BH Cardiovascular Results Authored Date: * Event Display: Ultrasound Lower Extremity, Non-BH Authored Date: * Event Display: X-Ray Lower Extremity, Non- BH Authored Date: * Event Display: X-Ray Chest, Non- BH Authored Date: Patient Care team information Care Team Personnel Name: Charleen Neri RN Position: [facility] RN Member Role: Primary Care Nurse Name: Min Mckenzie MD Position: [facility] Primary Care Physician Member Role: PCP Address: Address: [address] [place] [address]- [place] Name: Vianey Gonzales NP Position: [facility] Associate Professional Member Role: Primary Care Nurse Address: Address: [address] [place] [address] Trauma [place] [address]- [place] Name: Mara Daly RN Position: [facility] ED RN W/OE and Tasks Member Role: Primary Care Nurse Care Team Related Persons Name: TACOS VASQUEZ Address: [facility] [address] [place] [id number]
--- OUTSIDE RECORDS SUMMARY | 2024-01-05 10:02 | XMS_ITS | Continuity of Care Document ---
Author Organization [facility] Aki lt Address [address] [place] [address]- Care Team Providers Care Licensed Loan Officer Name Role Phone Magaly BARNARD, Min Blackman Primary Care Physician [facility] 04[facility]02/23 - 05/02/23 [facility] Adult [address] [place] [address]- Allergies, Adverse Reactions, Alerts Substance Reaction Severity [...] 3Location History: [facility] 4Result Comment: [id number] 5Location History: [facility] 6Location History: [...] tablet, 3 Refills, Maintenance, 02/04/23 9:18:00 EDT, [facility] #[id number], 175.3, cm, 02/04/23 8:41:00 EDT, Height Start Date: 02/04/23 Status: Ordered FLUoxetine 20 mg oral capsule 20 mg, 1, capsule, By Mouth, Daily, # 90 capsule, Refills 1, Tot. Refills 1, Maintenance, 04/27/23 14:10:00 EST, Route to Pharmacy Electronically, [facility] #[id number], Partial fill upon patient request if the prescription is for a schedule II... Start Date: 04/27/23 Status: Ordered gemfibrozil 600 mg oral tablet 1, tablet, By Mouth, 2 times a day, # 180 tablet, Refills 3, Tot. Refills 3, Maintenance, 02/04/23 9:18:00 EDT, Route to Pharmacy Electronically, [facility] #[id number], 175.3, cm, 02/04/23 8:41:00 EDT, Height Start Date: 02/04/23 Status: Ordered losartan 50 mg oral tablet 50 mg, 1, tablet, By Mouth, Daily, # 90 tablet, Refills 3, Tot. Refills 3, Maintenance, 02/04/23 9:19:00 EDT, Route to Pharmacy Electronically, [facility] #[id number], Partial fill upon patient request if the prescription is for a schedule II opi... Start Date: 02/04/23 Stop Date: 01/30/24 Status: Ordered Metoprolol Succinate ER 50 mg oral tablet, extended release 1 tablet, By Mouth, Daily, # 90 tablet, 3 Refills, Maintenance, 02/04/23 9:18:00 EDT, [id number], 175.3, cm, 02/04/23 8:41:00 EDT, Height Start [...] 0 Refills, Maintenance, 04/01/23 15:46:00 EDT, Capsule, [facility], Partial fill upon patient request if the prescription is for a schedule II opioid drug., 175, cm, 03/20/23 22... Start Date: 04/01/23 Status: Ordered ZyrTEC 10 mg oral tablet See Instructions, 1 tablet By Mouth [address] scan, # 1 tablet, 0 Refills, Maintenance, 04/01/23 15:33:00 EDT, Tablet, [facility], Partial fill upon patient [...] Team Personnel Name: Dawna Oshea RN Position: [facility] RN Member Role: Primary Care Nurse Name: Teresa Carey RN Position: [facility] RN Member Role: Primary Care Nurse Name: Sasha Queen RN Position: [facility] RN Member Role: Primary Care Nurse Name: Charleen Neri RN Position: [facility] RN Member Role: Primary Care Nurse Name: Min Mckenzie MD Position: [facility] Physician - Primary Care Member Role: PCP Address: Address: [address] [place] [address]- Name: Vianey Gonzales NP Position: [facility] Associate Professional Member Role: Primary Care Nurse Address: Address: [address] [place] [address] Trauma [place] [address]- Name: Felecia Villegas LPN Position: [facility] RN Member Role: Primary Care Nurse Name: Maria C Pearson RN Position: [facility] RN Member Role: Primary Care Nurse Name: Geovanna Kumari RN Position: [facility] RN Member Role: Primary Care Nurse Name: Shi Dawn RN Position: [facility] RN Member Role: Primary Care Nurse Name: Tali Paul RN Position: [facility] RN Member Role: Primary Care Nurse Name: Alicia Croft RN Position: [facility] RN Member Role: Primary Care Nurse Name: Aicha Lai RN Position: [facility] RN Member Role: Primary Care Nurse Name: Dino Fleming RN Position: [facility] RN Member Role: Primary Care Nurse Name: Luisa Mitchell RN Position: [facility] RN Member Role: Primary Care Nurse Name: Storm Gutierrez RN Position: [facility] RN Member Role: Primary Care Nurse Name: Nirav Nicholson RN Position: [facility] RN Member Role: Primary Care Nurse Name: Elaine Clark RN Position: [facility] RN Member Role: Primary Care Nurse Name: Mara Miranda RN Position: [facility] RN Member Role: Primary Care Nurse Name: Mara Daly RN Position: [facility] ED RN W/OE and Tasks Member Role: Primary Care Nurse Name: Nellie Vivas RN Position: [facility] RN Member Role: Primary Care Nurse Name: Emy Balderas LPN Position: [facility] RN Member Role: Primary Care Nurse Name: Caitlyn Anderson RN Position: [facility] RN Member Role: Primary Care Nurse Name: Lelia Clarke RN Position: [facility] RN Member Role: Primary Care Nurse Care Team Related Persons Name: TACOS VASQUEZ Address: [address] [address]
--- OUTSIDE RECORDS SUMMARY | 2024-01-05 10:02 | XMS_ITS | Continuity of Care Document ---
Author Organization [facility] Riley Aki lt Address [address] [place] [address]- Care Team Providers Care Pickup Driver Name Role Phone Min Mckenzie MD Primary Care Physician [phone] Encounter [facility] Date(s): 09/08/23 - 09/15/23 [facility] Adult [address] [place] [address]- Encounter Diagnosis Benign prostatic hyperplasia(Discharge Diagnosis) - 09/08/23 CAD (coronary artery disease)(Discharge Diagnosis) - 09/08/23 Depression, major, in remission(Discharge Diagnosis) - 09/08/23 GERD (gastroesophageal reflux disease)(Discharge Diagnosis) - 09/08/23 Hypertension(Discharge Diagnosis) - 09/08/23 Hyperlipidemia(Discharge Diagnosis) - 09/08/23 History of rectal cancer(Discharge Diagnosis) - 09/08/23 Hypogonadism male(Discharge Diagnosis) - 09/08/23 Attending Physician: Min Mckenzie MD Allergies, Adverse [...] 3Location History: [facility] 4Result Comment: [id number] 5Location History: [facility] 6Location History: [...] tablet, 3 Refills, Maintenance, 09/08/23 14:28:00 EDT, [id number], 175, cm, 09/08/23 14:11:00 EDT, Height, 99.4, kg, 03/20/23 21:57:00 EDT,Dry Weight Start Date: 09/08/23 Status: Ordered FLUoxetine 20 mg oral capsule See Instructions, TAKE 1 CAPSULE BY MOUTH DAILY, # 90 capsule, Refills 3, Tot. Refills 3, Maintenance, 09/08/23 14:28:00 EDT, Instructions Replace Required Details, Route to Pharmacy Electronically, [facility] #[id number], 175, cm, 09/08/23 14:11... Start Date: 09/08/23 Status: Ordered gemfibrozil 600 mg oral tablet 1, tablet, By Mouth, 2 times a day, # 180 tablet, Refills 3, Tot. Refills 3, Maintenance, 09/08/23 14:28:00 EDT, Route to Pharmacy Electronically, [facility] #[id number], 175, cm, 09/08/23 14:11:00 EDT, Height, 99.4, kg, 03/20/23 21:57:00 EDT, Start Date: 09/08/23 Status: Ordered losartan 50 mg oral tablet 50 mg, 1, tablet, By Mouth, Daily, # 90 tablet, Refills 3, Tot. Refills 3, Maintenance, 09/08/23 14:28:00 EDT, Route to Pharmacy Electronically, [facility] #[id number], Partial fill upon patientrequest if the prescription is for a schedule II op... Start Date: 09/08/23 Stop Date: 09/02/24 Status: Ordered Metoprolol Succinate ER 50 mg oral tablet, extended release 1 tablet, By Mouth, Daily, # 90 tablet, 3 Refills, Maintenance, 09/08/23 14:28:00 EDT, [facility] #[id number], 175, cm, 09/08/23 14:11:00 EDT, Height, 99.4, [...] 0 Refills, Maintenance, 04/01/23 15:46:00 EDT, Capsule, [facility], Partial fill upon patient request if the prescription is for a schedule II opioid drug., 175, cm, 03/20/23 22... Start Date: 04/01/23 Status: Ordered ZyrTEC 10 mg oral tablet See Instructions, 1 tablet By Mouth [address] scan, # 1 tablet, 0 Refills, Maintenance, 04/01/23 15:33:00 EDT, Tablet, [facility], Partial fill upon patient request [...] Diagnosis Diagnosis Type Effective Dates Health Status Clinical Service Informant Benign prostatic hyperplasia Discharge Diagnosis 09/08/23 CAD (coronary artery disease) Discharge Diagnosis 09/08/23 Depression, major, in remission Discharge Diagnosis 09/08/23 GERD (gastroesophageal reflux disease) Discharge Diagnosis 09/08/23 Hypertension Discharge Diagnosis 09/08/23 Hyperlipidemia Discharge Diagnosis 09/08/23 History of rectal cancer Discharge Diagnosis 09/08/23 Hypogonadism male Discharge Diagnosis 09/08/23 Vital Signs Most recent to oldest [Reference Range]: 1 Height 175 cm (09/08/23 2:11 PM) Weight 94.8 kg (09/08/23 2:11 PM) Oxygen Saturation [94-100 %] 98 % (09/08/23 2:11 PM) Pulse Rate [55-90 bpm] 61 bpm (09/08/23 2:11 PM) Body Mass Index [18.5-24.99 kg/m2] 30.96 kg/m2 *>HHI* (09/08/23 2:11 PM) Blood Pressure [90-138/55-84 mm Hg] 124/ 66mm Hg (09/08/23 2:11 PM) Mode of Delivery (Oxygen) Room air (09/08/23 2:11 PM) Blood pressure sites Arm, left (09/08/23 2:11 PM) Weight Obtained Via Standing scale (09/08/23 2:11 PM) Social History Social History Type Response Smoking Status Never smoker entered on: 07/12/14 Sex Note * Dacia Benites: PERFORM, SIGN, VERIFY Event Display: Patient Education/Instruction Authored Date: [id number] [facility] *MELY Arzola Clinical Summary Name MAURO VASQUEZ Age 67 Years 1955 PCP Min Mckenzie MD PCP [facility]# [id number] Visit Date 09/08/2023 14:10:00 Additional Instructions: Scheduled Appointments?? Future Appointments ?No Future Appointments Scheduled Follow-Up Instructions ?? With: Address: When: Min Mckenzie MD In 6 months Comments: Physical examination Diagnosis Benign prostatic hyperplasia without lower urinary tract symptoms; Atherosclerotic heart disease ofnative coronary artery without angina pectoris; Essential (primary) hypertension; Gastro-esophagealreflux disease without esophagitis; Testicular hypofunction; Hyperlipidemia, unspecified; Major depr essive disorder, single episode, in full remission; Personal history of other malignant neoplasm ofrectum, rectosigmoid junction, and anus Medications: Please continue your medications until treatment is completed or stopped by your provider. Discuss any questions related to medications with your provider. Medications to Continue Taking That Have Changed [facility] #[id number], [address] [place] [id number], [phone] - Fluoxetine (FLUoxetine 20 mg oral capsule) TAKE 1 CAPSULE BY MOUTH DAILY. Refills: 3. Next Dose: Medications to Continue with No Changes [facility] #[id number], [address] [place] [id number], [phone] Atorvastatin (atorvastatin 40 mg oral tablet) 1 [...] Aspirin 81 Milligram Oral Daily. Next Dose: Cetirizine (ZyrTEC 10 mg oral tablet) 1 tablet By Mouth [address] scan. Refills: 0. Next Dose: Durable Medical Equipment (Adult size disposable underwear/ pull-on medium) use 3-6 times per day. Dx: incontenence for lifetime.. Refills: 11. Next Dose: Nitroglycerin (nitroglycerin 0.4 mg sublingual tablet) 1 tab(s) Sublingual every 5 minutes as needed Chest Pain. not to exceed 3 doses/15 min--if pain persists, seek medical attention Call 911. Refills: 11. Next Dose: Saw [place] (saw palmetto 320 mg with phytosterols oral capsule) 1 capsule Oral twice a day. Refills: 0. Next Dose: Testosterone (AndroGel 40.5 mg (1.62%) transdermal gel) 2 pack/packet Topically Daily in the morning. Next Dose: Allergy Info:?? Contrast Dye Medications Given This Visit Future Orders ?No future orders Future Orders ?Comprehensive Metabolic Panel? Order Date:09/08/23?- Complete within?Lipid Panel? Order Date:09/08/23?- Complete within?CBC? Order Date:09/08/23?- Complete within?Thyroid Panel? Order Date:09/08/23?- Complete within? Vital Signs Height 175 cm Weight 94.8 kg BMI 30.96 kg/m2 Blood Pressure 124 mm Hg/66 mm Hg Temperature Pulse Rate 61 bpm Respiratory Rate 02 Sat Mode of Delivery 98 %/Room air You can now view a summary of your hospital visit from the comfort of your home through a free online portal called [employer]. [employer] is a website that allows you to securely view your medical information including discharge summary, medications and follow-up visits. ??You can alsosend a secure electronic message to your doctor???s office to request appointments, renew medications or just ask a question. You can enroll at [email or web address] or register during your next office visit. [...] primary care provider, you may find a [facility] provider by calling [facility] Link at [phone]. [facility], in keeping with [facility] guidance, no longer requires face masks [...] Team Personnel Name: Dawna Oshea RN Position: S RN Member Role: Primary Care Nurse Name: Teresa Carey RN Position: S RN Member Role: Primary Care Nurse Name: Sasha Queen RN Position: [facility] RN Member Role: Primary Care Nurse Name: Charleen Neri RN Position: [facility] RN Member Role: Primary Care Nurse Name: Min Mckenzie MD Position: [facility] Physician - Primary Care Member Role: PCP Address: Address: [address] [facility] [place] [address]- [place] Name: Vianey Gonzales NP Position: [facility] Associate Professional Member Role: Primary Care Nurse Address: Address: [address] [place] [address] Trauma [place] [address]- [place] Name: Felecia Villegas LPN Position: [facility] RN Member Role: Primary Care Nurse Name: Maria C Pearson RN Position: [facility] RN Member Role: Primary Care Nurse Name: Geovanna Kumari RN Position: [facility] RN Member Role: Primary Care Nurse Name: Shi Dawn RN Position: [facility] RN Member Role: Primary Care Nurse Name: Tali Paul RN Position: [facility] RN Member Role: Primary Care Nurse Name: Alicia Croft RN Position: [facility] RN Member Role: Primary Care Nurse Name: Aicha Lai RN Position: [facility] RN Member Role: Primary Care Nurse Name: Dino Fleming RN Position: [facility] RN Member Role: Primary Care Nurse Name: Luisa Mitchell RN Position: [facility] RN Member Role: Primary Care Nurse Name: Nirav Nicholson RN Position: [facility] RN Member Role: Primary Care Nurse Name: Mara Miranda RN Position: [facility] RN Member Role: Primary Care Nurse Name: Mara Daly RN Position: [facility] ED RN W/OE and Tasks Member Role: Primary Care Nurse Name: Nellie Vivas RN Position: [facility] RN Member Role: Primary Care Nurse Name: Emy Balderas LPN Position: [facility] RN Member Role: Primary Care Nurse Name: Caitlyn Anderson RN Position: [facility] RN Member Role: Primary Care Nurse Name: Lelia Clarke RN Position: [facility] RN Member Role: Primary Care Nurse Care Team Related Persons Name: TACOS VASQUEZ Address: [address] [address]
--- OUTSIDE RECORDS SUMMARY | 2024-01-05 10:03 | XMS_ITS | Continuity of Care Document ---
Author Organization [facility] Riley Aki lt Address [address] [place] [address]- Care Team Providers Care Remote Coders Name Role Phone Magaly BARNARD, Min Blackman Primary Care Physician [phone] Encounter [facility] Date(s): 12/10/22 - 01/09/23 [facility] Adult [address] [place] [address]- Allergies, Adverse Reactions, Alerts Substance Reaction Severity [...] 3Location History: [facility] 4Result Comment: [id number] 5Location History: [facility] 6Location History: [...] tablet, 3 Refills, Maintenance, 08/17/22 11:12:00 EST, [facility] #[id number], 175.3, cm, 08/17/22 10:47:00 EST, Height, 98.4, kg, 09/12/20 8:51:00 EDT, Dry Weight Start Date: 08/17/22 Status: Ordered erythromycin 0.5% ophthalmic ointment 0.5 inches, Eyes, Both, 4 times a day, # 4 Gm, 0 Refills, Maintenance, 10/22/22 10:20:00 EDT, [facility]hth[facility]intment, [facility] #[id number], Partial fill upon patient request if the [...] 08/17/22 11:12:00 EST, Route to Pharmacy Electronically, [facility][id number], 175.3, cm, 08/17/22 10:47:00 EST, Height, 98.4, kg, 09/12/20 8:51:00 EDT, D... Start Date: 08/17/22 Status: Ordered hydroCHLOROthiazide 12.5 mg oral capsule 1 capsule, By Mouth, Daily, # 90 capsule, 3 Refills, 08/17/22 11:12:00 EST, [facility] #[id number], 175.3, cm, 08/17/22 10:47:00 EST, Height, 98.4, kg, 09/12/20 8:51:00 EDT, Dry Weight Start Date: 08/17/22 Status: Ordered lisinopril 20 mg oral tablet 1, tablet, By Mouth, Daily, # 90 tablet, Refills 3, Tot. Refills 3, Maintenance, 08/17/22 11:12:00 EST, Route to Pharmacy Electronically, [facility] #[id number], 175.3, cm, 08/17/22 10:47:00 EST, Height, 98.4, [...] tablet, 3 Refills, Maintenance, 08/17/22 11:12:00 EST, [facility] #[id number], 175.3, cm, 08/17/22 10:47:00 EST, Height, 98.4, [...] Weight Start Date: 08/17/22 Status: Ordered Saw [place]ph[place] By Mouth, 0 Refills, Maintenance, 08/17/22 11:05:00 [...] Team Personnel Name: Charleen Neri RN Position: [facility] RN Member Role: Primary Care Nurse Name: Min Mckenzie MD Position: [facility] Physician - Primary Care Member Role: PCP Address: Address: [address] [place] [address]- [place] Name: Vianey Gonzales NP Position: [facility] Associate Professional Member Role: Primary Care Nurse Address: Address: [address] [place] [address] Trauma and [place] [address]- [place] Name: Mara Daly RN Position: [facility] ED RN W/OE and Tasks Member Role: Primary Care Nurse Care Team Related Persons Name: PEDRO TACOS Address: [facility] [address] [place] [address]
--- OUTSIDE RECORDS SUMMARY | 2024-01-05 10:03 | XMS_ITS | Continuity of Care Document ---
Author Organization [facility] Address [address] [place] [address] [address] [place] [address]- Care Team Providers Care Children'S Ministry Director Name Role Phone Magaly BARNARD, Min Blackman Primary Care Physician [facility]counter [facility] Date(s): 04/07/23 - 05/07/23 [facility] [address] [place] [address]- Allergies, Adverse Reactions, Alerts Substance Reaction Severity [...] 3Location History: [facility] 4Result Comment: [id number] 5Location History: [facility] 6Location History: [...] tablet, 3 Refills, Maintenance, 02/04/23 9:18:00 EDT, [facility] #[id number], 175.3, cm, 02/04/23 8:41:00 EDT, Height Start Date: 02/04/23 Status: Ordered FLUoxetine 20 mg oral capsule 20 mg, 1, capsule, By Mouth, Daily, # 90 capsule, Refills 1, Tot. Refills 1, Maintenance, 04/27/23 14:10:00 EST, Route to Pharmacy Electronically, [facility] #[id number], Partial fill upon patient request if the prescription is for a schedule II... Start Date: 04/27/23 Status: Ordered gemfibrozil 600 mg oral tablet 1, tablet, By Mouth, 2 times a day, # 180 tablet, Refills 3, Tot. Refills 3, Maintenance, 02/04/23 9:18:00 EDT, Route to Pharmacy Electronically, [facility] #[id number], 175.3, cm, 02/04/23 8:41:00 EDT, Height Start Date: 02/04/23 Status: Ordered losartan 50 mg oral tablet 50 mg, 1, tablet, By Mouth, Daily, # 90 tablet, Refills 3, Tot. Refills 3, Maintenance, 02/04/23 9:19:00 EDT, Route to Pharmacy Electronically, [facility] #[id number], Partial fill upon patient request if the prescription is for a schedule II opi... Start Date: 02/04/23 Stop Date: 01/30/24 Status: Ordered Metoprolol Succinate ER 50 mg oral tablet, extended release 1 tablet, By Mouth, Daily, # 90 tablet, 3 Refills, Maintenance, 02/04/23 9:18:00 EDT, [id number], 175.3, cm, 02/04/23 8:41:00 EDT, Height Start [...] 0 Refills, Maintenance, 04/01/23 15:46:00 EDT, Capsule, [facility], Partial fill upon patient request if the prescription is for a schedule II opioid drug., 175, cm, 03/20/23 22... Start Date: 04/01/23 Status: Ordered ZyrTEC 10 mg oral tablet See Instructions, 1 tablet By Mouth [address] scan, # 1 tablet, 0 Refills, Maintenance, 04/01/23 15:33:00 EDT, Tablet, [facility], Partial fill upon patient [...] Team Personnel Name: Dawna Oshea RN Position: [facility] RN Member Role: Primary Care Nurse Name: Teresa Carey RN Position: [facility] RN Member Role: Primary Care Nurse Name: Sasha Queen RN Position: [facility] RN Member Role: Primary Care Nurse Name: Charleen Neri RN Position: [facility] RN Member Role: Primary Care Nurse Name: Min Mckenzie MD Position: [facility] Physician - Primary Care Member Role: PCP Address: Address: [address] [place] [address]- Name: Vianey Gonzales NP Position: [facility] Associate Professional Member Role: Primary Care Nurse Address: Address: [address] [place] [address] Trauma [place] [address]- Name: Felecia Villegas LPN Position: [facility] [...] Care Nurse Name: Storm Gutierrez RN Position: [facility] RN Member Role: Primary Care Nurse Name: Nirav Nicholson RN Position: [facility] RN Member Role: Primary Care Nurse Name: Elaine Clark RN Position: [facility] RN Member Role: [...] Team Related Persons Name: TACOS VASQUEZ Address: [address] [address]
--- OUTSIDE RECORDS SUMMARY | 2024-01-05 10:03 | XMS_ITS | Continuity of Care Document ---
Author Organization [facility] Riley Aki lt Address [address] [place] [address]- Care Team Providers Care Hub Associate Name Role Phone Magaly BARNARD, Min Blackman Primary Care Physician [facility] Date(s): 08/18/22 - 09/17/22 [facility] Adult [address] [place] [address]- Allergies, Adverse Reactions, Alerts Substance Reaction Severity [...] 3Location History: [facility] 4Result Comment: [id number] 5Location History: [facility] 6Location History: [...] tablet, 3 Refills, Maintenance, 08/17/22 11:12:00 EST, [facility] #[id number], 175.3, cm, 08/17/22 10:47:00 EST, Height, 98.4, [...] 08/17/22 11:12:00 EST, Route to Pharmacy Electronically, [facility] #[id number], 175.3, cm, 08/17/22 10:47:00 EST, Height, 98.4, kg, 09/12/20 8:51:00 EDT, D... Start Date: 08/17/22 Status: Ordered hydroCHLOROthiazide 12.5 mg oral capsule 1 capsule, By Mouth, Daily, # 90 capsule, 3 Refills, 08/17/22 11:12:00 EST, [facility] #[id number], 175.3, cm, 08/17/22 10:47:00 EST, Height, 98.4, kg, 09/12/20 8:51:00 EDT, Dry Weight Start Date: 08/17/22 Status: Ordered lisinopril 20 mg oral tablet 1, tablet, By Mouth, Daily, # 90 tablet, Refills 3, Tot. Refills 3, Maintenance, 08/17/22 11:12:00 EST, Route to Pharmacy Electronically, [facility] #[id number], 175.3, cm, 08/17/22 10:47:00 EST, Height, 98.4, kg, 09/12/20 8:51:00 EDT, Dry Weight Start Date: 08/17/22 Status: Ordered Metoprolol Succinate ER 50 mg oral tablet, extended release 1 tablet, By Mouth, Daily, # 90 tablet, 3 Refills, Maintenance, 08/17/22 11:12:00 EST, [facility] #[id number], 175.3, cm, 08/17/22 10:47:00 EST, Height, 98.4, [...] Weight Start Date: 08/17/22 Status: Ordered Saw [place] By Mouth, 0 Refills, Maintenance, 08/17/22 11:05:00 [...] Team Personnel Name: Charleen Neri RN Position: [facility] RN Member Role: Primary Care Nurse Name: Min Mckenzie MD Position: [facility] Primary Care Physician Member Role: PCP Address: Address: [address] [place] [address]- [place] Name: Vianey Gonzales NP Position: [facility] Associate Professional Member Role: Primary Care Nurse Address: Address: [address] [place] [address] Trauma [place] [address]- Name: Mara Daly RN Position: [facility] ED RN W/OE and Tasks Member Role: Primary Care Nurse Care Team Related Persons Name: PEDRO TACOS Address: [address] [address]
--- OUTSIDE RECORDS SUMMARY | 2024-01-05 10:03 | XMS_ITS | Continuity of Care Document ---
Author Organization [facility] ter Address [address] [place] [address]- Care Team Providers Care Nitrocellulose Operator Name Role Phone Magaly BARNARD, Min Blackman Primary Care Physician Encounter [facility] Date(s): 02/15/23 - 04/25/[address] [address] Attending Physician: Sina Carlos MD Admitting Physician: Sina Carlos MD Allergies, Adverse Reactions, Alerts Substance Reaction [...] 3Location History: [facility] 4Result Comment: [id number] 5Location History: [facility] 6Location History: [...] tablet, 3 Refills, Maintenance, 02/04/23 9:18:00 EDT, [facility] #[id number], 175.3, cm, 02/04/23 8:41:00 EDT, Height Start Date: 02/04/23 Status: Ordered FLUoxetine 20 mg oral capsule 20 mg, 1, capsule, By Mouth, Daily, # 30 capsule, Refills 0, Tot. Refills 0, Maintenance, 04/08/23 13:11:00 EDT, Route to Pharmacy Electronically, [facility] #[id number], Partial fill upon patient request if the prescription is for a schedule II... Start Date: 04/08/23 Status: Ordered gemfibrozil 600 mg oral tablet 1, tablet, By Mouth, 2 times a day, # 180 tablet, Refills 3, Tot. Refills 3, Maintenance, 02/04/23 9:18:00 EDT, Route to Pharmacy Electronically, [facility] #[id number], 175.3, cm, 02/04/23 8:41:00 EDT, Height Start Date: 02/04/23 Status: Ordered losartan 50 mg oral tablet 50 mg, 1, tablet, By Mouth, Daily, # 90 tablet, Refills 3, Tot. Refills 3, Maintenance, 02/04/23 9:19:00 EDT, Route to Pharmacy Electronically, [facility] #[id number], Partial fill upon patient request if the prescription is for a schedule II opi... Start Date: 02/04/23 Stop Date: 01/30/24 Status: Ordered Metoprolol Succinate ER 50 mg oral tablet, extended release 1 tablet, By Mouth, Daily, # 90 tablet, 3 Refills, Maintenance, 02/04/23 9:18:00 EDT, [facility] #[id number], 175.3, cm, 02/04/23 8:41:00 EDT, Height Start [...] 0 Refills, Maintenance, 04/01/23 15:46:00 EDT, Capsule, [facility], Partial fill upon patient request if the prescription is for a schedule II opioid drug., 175, cm, 03/20/23 22... Start Date: 04/01/23 Status: Ordered ZyrTEC 10 mg oral tablet See Instructions, 1 tablet By Mouth [address] scan, # 1 tablet, 0 Refills, Maintenance, 04/01/23 15:33:00 EDT, Tablet, [facility], Partial fill upon patient [...] recent to oldest [Reference Range]: 1 2 Oxygen Saturation [94-100 %] 97 % (03/27/23 3:00 PM) 96 % (03/27/23 2:45 PM) Blood Pressure [90-138/55-84 mm Hg] 120/ 64mm Hg (03/27/23 3:00 PM) 118/65mm Hg (03/27/23 2:45 PM) Respiratory Rate [16-30 br/min] 26 br/mi n (03/27/23 3:00 PM) 27 br/min (03/27/23 2:45 PM) Temperature [96.8-100.4 DegF] 99.2 DegF (03/27/23 2:45 PM) Liters per Minute 8 L/min (03/27/23 2:45 PM) Mode of Delivery (Oxygen) Room air (03/27/23 3:00 PM) Simple face mask (03/27/23 2:45 PM) Blood pressure sites Arm, left (03/27/23 3:00 PM) Arm, left (03/27/23 2:45 PM) Temperature Route Temporal (03/27/23 2:45 PM) Social History Social History Type Response Smoking Status Never smoker entered on: 07/12/14 Sex Patient Care team information Care Team Personnel Name: Dawna Oshea RN Position: [facility] RN Member Role: Primary Care Nurse Name: Teresa Carey RN Position: [facility] RN Member Role: Primary Care Nurse Name: Sasha Queen RN Position: [facility] RN Member Role: Primary Care Nurse Name: Charleen Neri RN Position: [facility] RN Member Role: Primary Care Nurse Name: Min Mckenzie MD Position: [facility] Physician - Primary Care Member Role: PCP Address: Address: [address] [facility] [place] [address]- [place] Name: Vianey Gonzales NP Position: [facility] Associate Professional Member Role: Primary Care Nurse Address: Address: [address] [place] [address] Trauma and [place] [address]- [place] Name: Felecia Villegas LPN Position: [facility] RN Member [...] Name: TACOS VASQUEZ Address: home [address] [place] [address]
--- OUTSIDE RECORDS SUMMARY | 2024-01-05 10:03 | XMS_ITS | Continuity of Care Document ---
Author Organization [facility] ter Address [address] [place] [address]- Care Team Providers Care Skip Loader Name Role Phone Min Mckenzie MD Primary Care Physician [phone] Encounter [facility] Date(s): 02/16/23 - 03/18/[address] [address] Attending Physician: Not on Staff, Attending MD Admitting Physician: Not on Staff, Admitting MD Referring Physician: Not on Staff, Referring MD [...] 5 08/13/09 Recorded Zoster Vaccine Live 6 11/15/12 Recorded pneumococcal 23-valent vaccine 7 08/13/09 Recorded Hepatitis A Vaccine (oldterm) 8 08/29/07 Given Hepatitis A Vaccine (oldterm) 02/02/07 Given tetanus-diphtheria toxoids (Td) 02/02/07 Given 1Location History: [facility] 2Location History: [facility] 3Location History: [facility] 4Result Comment: [id number] 5Location History: [facility] 6Location History: [...] tablet, 3 Refills, Maintenance, 02/04/23 9:18:00 EDT, [facility] #[id number], 175.3, cm, 02/04/23 8:41:00 EDT, Height Start Date: 02/04/23 Status: Ordered erythromycin 0.5% ophthalmic ointment 0.5 inches, Eyes, Both, 4 times a day, # 4 Gm, 0 Refills, Maintenance, 10/22/22 10:20:00 EDT, OphthOintment, [facility] #[id number], Partial fill upon patient request if the [...] 02/04/23 9:18:00 EDT, Route to Pharmacy Electronically, [facility] #[id number], 175.3, cm, 02/04/23 8:41:00 EDT, Height Start Date: 02/04/23 Status: Ordered losartan 50 mg oral tablet 50 mg, 1, tablet, By Mouth, Daily, # 90 tablet, Refills 3, Tot. Refills 3, Maintenance, 02/04/23 9:19:00 EDT, Route to Pharmacy Electronically, [facility] #[id number], Partial fill upon patient request if the [...] tablet, 3 Refills, Maintenance, 02/04/23 9:18:00 EDT, [facility] #[id number], 175.3, cm, 02/04/23 8:41:00 EDT, Height Start [...] Primary Care Member Role: PCP Address: Address: [address] [place] [address]- Name: Vianey Gonzales NP Position: [facility] Associate Professional Member Role: Primary Care Nurse Address: Address: [address] [place] [address] Trauma [place] [address]- Name: Felecia Villegas LPN Position: [facility] RN Member Role: Primary Care Nurse Name: Geovanna Kumari RN Position: S RN Member Role: Primary Care Nurse Name: Tali Paul RN Position: [facility] RN Member Role: Primary Care Nurse Name: Alicia Croft RN Position: S RN Member Role: Primary Care Nurse Name: Luisa Mitchell RN Position: S RN Member Role: Primary [...] Team Related Persons Name: TACOS VASQUEZ Address: [address] [address]
--- OUTSIDE RECORDS SUMMARY | 2024-01-05 10:03 | XMS_ITS | Continuity of Care Document ---
Author Organization [facility] Address [address] [place] [address]- Care Team Providers Care Game Designer/Creative Director Name Role Phone Min Mckenzie MD Primary Care Physician [facility]counter [facility] Date(s): 03/01/23 - 03/31/23 [facility] [address] [place] [address]- [place] Allergies, Adverse Reactions, Alerts Substance Reaction [...] 3Location History: [facility] 4Result Comment: [id number] 5Location History: [facility] 6Location History: [...] tablet, 3 Refills, Maintenance, 02/04/23 9:18:00 EDT, [facility] #[id number], 175.3, cm, 02/04/23 8:41:00 EDT, Height Start Date: 02/04/23 Status: Ordered erythromycin 0.5% ophthalmic ointment 0.5 inches, Eyes, Both, 4 times a day, # 4 Gm, 0 Refills, Maintenance, 10/22/22 10:20:00 EDT, OphthOintment, [facility] #[id number], Partial fill upon patient request if the [...] 02/04/23 9:18:00 EDT, Route to Pharmacy Electronically, [facility] #[id number], 175.3, cm, 02/04/23 8:41:00 EDT, Height Start Date: 02/04/23 Status: Ordered losartan 50 mg oral tablet 50 mg, 1, tablet, By Mouth, Daily, # 90 tablet, Refills 3, Tot. Refills 3, Maintenance, 02/04/23 9:19:00 EDT, Route to Pharmacy Electronically, [facility] #[id number], Partial fill upon patient request if the [...] tablet, 3 Refills, Maintenance, 02/04/23 9:18:00 EDT, [facility] #[id number], 175.3, cm, 02/04/23 8:41:00 EDT, Height Start [...] Team Personnel Name: Dawna Oshea RN Position: [facility] RN Member Role: Primary Care Nurse Name: Teresa Carey RN Position: [facility] RN Member Role: Primary Care Nurse Name: Sasha Queen RN Position: [facility] RN Member Role: Primary Care Nurse Name: Charleen Neri RN Position: [facility] RN Member Role: Primary Care Nurse Name: Min Mckenzie MD Position: [facility] Physician - Primary Care Member Role: PCP Address: Address: [address] [place] [address]- Name: Vianey Gonzales NP Position: [facility] Associate Professional Member Role: Primary Care Nurse Address: Address: [address] [place] [address] Trauma [place] [address]- Name: Felecia Villegas LPN Position: [facility] RN Member Role: Primary Care Nurse Name: Geovanna Kumari RN Position: [facility] RN Member Role: Primary Care Nurse Name: Shi Dawn RN Position: [facility] RN Member Role: Primary Care Nurse Name: Tali Paul RN Position: S RN Member Role: Primary Care Nurse Name: Alicia Croft RN Position: [facility] RN Member Role: Primary Care Nurse Name: Aicha Lai RN Position: [facility] RN Member Role: Primary Care Nurse Name: Dino Fleming RN Position: [facility] RN Member Role: Primary Care Nurse Name: Luisa Mitchell RN Position: [facility] RN Member Role: Primary Care Nurse Name: Storm Gutierrez RN Position: [facility] RN Member Role: Primary Care Nurse Name: Nirav Nicholson RN Position: [facility] RN Member Role: Primary Care Nurse Name: Elaine Clark RN Position: [facility] RN Member Role: Primary Care Nurse Name: Mara Miranda RN Position: [facility] RN Member Role: Primary Care Nurse Name: Mara Daly RN Position: [facility] ED RN W/OE and Tasks Member Role: Primary Care Nurse Name: Nellie Vivas RN Position: [facility] RN Member Role: Primary Care Nurse Name: Emy Balderas LPN Position: [facility] RN Member Role: Primary Care Nurse Name: Caitlyn Anderson RN Position: [facility] RN Member Role: Primary Care Nurse Name: Lelia Clarke RN Position: [facility] RN Member Role: Primary Care Nurse Care Team Related Persons Name: CIROTACOS POOL Address: [address] [address]
--- OUTSIDE RECORDS SUMMARY | 2024-01-05 10:03 | XMS_ITS | Continuity of Care Document ---
Author Organization [facility] Address [address] [place] [address]- Care Team Providers Care Predatory Animal Trapper Name Role Phone Magaly BARNARD, Min Blackman Primary Care Physician [phone] [facility]counter [facility] Date(s): 11/11/22 - 12/11/22 [facility] Adult [address] [place] [address]- Allergies, Adverse Reactions, Alerts Substance Reaction Severity [...] 3Location History: [facility] 4Result Comment: [id number] 5Location History: [facility] 6Location History: [...] tablet, 3 Refills, Maintenance, 08/17/22 11:12:00 EST, [facility] #[id number], 175.3, cm, 08/17/22 10:47:00 EST, Height, 98.4, kg, 09/12/20 8:51:00 EDT, Dry Weight Start Date: 08/17/22 Status: Ordered erythromycin 0.5% ophthalmic ointment 0.5 inches, Eyes, Both, 4 times a day, # 4 Gm, 0 Refills, Maintenance, 10/22/22 10:20:00 EDT, OphthOintment, [facility] #[id number], Partial fill upon patient request if the [...] 08/17/22 11:12:00 EST, Route to Pharmacy Electronically, [facility] #[id number], 175.3, cm, 08/17/22 10:47:00 EST, Height, 98.4, kg, 09/12/20 8:51:00 EDT, D... Start Date: 08/17/22 Status: Ordered hydroCHLOROthiazide 12.5 mg oral capsule 1 capsule, By Mouth, Daily, # 90 capsule, 3 Refills, 08/17/22 11:12:00 EST, [facility] #[id number], 175.3, cm, 08/17/22 10:47:00 EST, Height, 98.4, kg, 09/12/20 8:51:00 EDT, Dry Weight Start Date: 08/17/22 Status: Ordered lisinopril 20 mg oral tablet 1, tablet, By Mouth, Daily, # 90 tablet, Refills 3, Tot. Refills 3, Maintenance, 08/17/22 11:12:00 EST, Route to Pharmacy Electronically, [facility] #[id number], 175.3, cm, 08/17/22 10:47:00 EST, Height, 98.4, [...] tablet, 3 Refills, Maintenance, 08/17/22 11:12:00 EST, [facility] #[id number], 175.3, cm, 08/17/22 10:47:00 EST, Height, 98.4, [...] Weight Start Date: 08/17/22 Status: Ordered Saw [place] By Mouth, 0 Refills, Maintenance, 08/17/22 11:05:00 [...] Team Personnel Name: Charleen Neri RN Position: [facility] RN Member Role: Primary Care Nurse Name: Min Mckenzie MD Position: [facility] Physician - Primary Care Member Role: PCP Address: Address: [address] [place] [address]- Name: Vianey Gonzales NP Position: [facility] Associate Professional Member Role: Primary Care Nurse Address: Address: [address] [place] [address] Trauma [place] [address]- [place] Name: Mara Daly RN Position: [facility] ED RN W/OE and Tasks Member Role: Primary Care Nurse Care Team Related Persons Name: PEDRO TACOS Address: [facility] [address] [place] [address]
--- OUTSIDE RECORDS SUMMARY | 2024-01-05 10:03 | XMS_ITS | Continuity of Care Document ---
Author Organization [facility] Address [address] [place] [address]- Care Team Providers Care Harvest Field Ticketer Name Role Phone Min Mckenzie MD Primary Care Physician [facility]counter [facility] Date(s): 06/01/23 - 07/01/23 [facility] Adult [address] [place] [address]- Allergies, Adverse Reactions, Alerts Substance Reaction Severity [...] 3Location History: [facility] 4Result Comment: [id number] 5Location History: [facility] 6Location History: [...] tablet, 3 Refills, Maintenance, 02/04/23 9:18:00 EDT, [facility] #[id number], 175.3, cm, 02/04/23 8:41:00 EDT, Height Start Date: 02/04/23 Status: Ordered FLUoxetine 20 mg oral capsule 20 mg, 1, capsule, By Mouth, Daily, # 90 capsule, Refills 1, Tot. Refills 1, Maintenance, 04/27/23 14:10:00 EST, Route to Pharmacy Electronically, [facility] #[id number], Partial fill upon patient request if the prescription is for a schedule II... Start Date: 04/27/23 Status: Ordered gemfibrozil 600 mg oral tablet 1, tablet, By Mouth, 2 times a day, # 180 tablet, Refills 3, Tot. Refills 3, Maintenance, 02/04/23 9:18:00 EDT, Route to Pharmacy Electronically, [facility] #[id number], 175.3, cm, 02/04/23 8:41:00 EDT, Height Start Date: 02/04/23 Status: Ordered losartan 50 mg oral tablet 50 mg, 1, tablet, By Mouth, Daily, # 90 tablet, Refills 3, Tot. Refills 3, Maintenance, 02/04/23 9:19:00 EDT, [id number], Partial fill upon patient request if the prescription is for a schedule II opi... Start Date: 02/04/23 Stop Date: 01/30/24 Status: Ordered Metoprolol Succinate ER 50 mg oral tablet, extended release 1 tablet, By Mouth, Daily, # 90 tablet, 3 Refills, Maintenance, 02/04/23 9:18:00 EDT, [facility][id number], 175.3, cm, 02/04/23 8:41:00 EDT, Height Start [...] 0 Refills, Maintenance, 04/01/23 15:46:00 EDT, Capsule, [facility], Partial fill upon patient request if the prescription is for a schedule II opioid drug., 175, cm, 03/20/23 22... Start Date: 04/01/23 Status: Ordered ZyrTEC 10 mg oral tablet See Instructions, 1 tablet By Mouth [address] scan, # 1 tablet, 0 Refills, Maintenance, 04/01/23 15:33:00 EDT, Tablet, [facility], Partial fill upon patient [...] Name: Dawna Oshea RN Position: [facility] RN Member Role: Primary Care Nurse Name: Teresa Carey RN Position: S RN Member Role: Primary Care Nurse Name: Sasha Queen RN Position: [facility] RN Member Role: Primary Care Nurse Name: Charleen Neri RN Position: [facility] RN Member Role: Primary Care Nurse Name: Min Mckenzie MD Position: [facility] Physician - Primary Care Member Role: PCP Address: Address: [address] [place] [address]- [place] Name: Vianey Gonzales NP Position: [facility] Associate Professional Member Role: Primary Care Nurse Address: Address: [address] [place] [address] Trauma [place] [address]- Name: Felecia Villegas LPN Position: S RN Member Role: Primary Care Nurse Name: Maria C Pearson RN Position: S RN Member Role: Primary Care Nurse Name: Geovanna Kumari RN Position: [facility] RN Member Role: Primary Care Nurse Name: Shi Dawn RN Position: [facility] RN Member Role: Primary Care Nurse Name: Tali Paul RN Position: [facility] RN Member Role: Primary Care Nurse Name: Alicia Croft RN Position: [facility] RN Member Role: Primary Care Nurse Name: Aicha Lai RN Position: [facility] RN Member Role: Primary Care Nurse Name: Dino Fleming RN Position: [facility] RN Member Role: Primary Care Nurse Name: Luisa Mitchell RN Position: [facility] RN Member Role: Primary Care Nurse Name: Storm Gutierrez RN Position: [facility] RN Member Role: Primary Care Nurse Name: Nirav Nicholson RN Position: [facility] RN Member Role: Primary Care Nurse Name: Elaine Clark RN Position: [facility] RN Member Role: Primary Care Nurse Name: Mara Miranda RN Position: [facility] RN Member Role: Primary Care Nurse Name: Mara Daly RN Position: [facility] ED RN W/OE and Tasks Member Role: Primary Care Nurse Name: Nellie Vivas RN Position: [facility] RN Member Role: Primary Care Nurse Name: Emy Balderas LPN Position: [facility] RN Member Role: Primary Care Nurse Name: Caitlyn Anderson RN Position: [facility] RN Member Role: Primary Care Nurse Name: Lelia Clarke RN Position: [facility] RN Member Role: Primary Care Nurse Care Team Related Persons Name: TACOS VASQUEZ Address: [address] [address]
--- OUTSIDE RECORDS SUMMARY | 2024-01-05 10:03 | XMS_ITS | Continuity of Care Document ---
Author Organization [facility] Address [address] [place] [address]- Care Team Providers Care Bilingual Trainer Name Role Phone Magaly BARNARD, Min Blackman Primary Care Physician [facility] Date(s): 11/24/22 - 12/24/22 [facility] Adult [address] [place] [address]- Allergies, Adverse Reactions, Alerts Substance Reaction Severity [...] 3Location History: [facility] 4Result Comment: [id number] 5Location History: [facility] 6Location History: [...] tablet, 3 Refills, Maintenance, 08/17/22 11:12:00 EST, [facility] #[id number], 175.3, cm, 08/17/22 10:47:00 EST, Height, 98.4, kg, 09/12/20 8:51:00 EDT, Dry Weight Start Date: 08/17/22 Status: Ordered erythromycin 0.5% ophthalmic ointment 0.5 inches, Eyes, Both, 4 times a day, # 4 Gm, 0 Refills, Maintenance, 10/22/22 10:20:00 EDT, OphthOintment, [facility] #[id number], Partial fill upon patient request if the [...] 08/17/22 11:12:00 EST, Route to Pharmacy Electronically, [facility] #[id number], 175.3, cm, 08/17/22 10:47:00 EST, Height, 98.4, kg, 09/12/20 8:51:00 EDT, D... Start Date: 08/17/22 Status: Ordered hydroCHLOROthiazide 12.5 mg oral capsule 1 capsule, By Mouth, Daily, # 90 capsule, 3 Refills, 08/17/22 11:12:00 EST, [facility] #[id number], 175.3, cm, 08/17/22 10:47:00 EST, Height, 98.4, kg, 09/12/20 8:51:00 EDT, Dry Weight Start Date: 08/17/22 Status: Ordered lisinopril 20 mg oral tablet 1, tablet, By Mouth, Daily, # 90 tablet, Refills 3, Tot. Refills 3, Maintenance, 08/17/22 11:12:00 EST, Route to Pharmacy Electronically, [facility] #[id number], 175.3, cm, 08/17/22 10:47:00 EST, Height, 98.4, [...] tablet, 3 Refills, Maintenance, 08/17/22 11:12:00 EST, [facility] #[id number], 175.3, cm, 08/17/22 10:47:00 EST, Height, 98.4, [...] Weight Start Date: 08/17/22 Status: Ordered Saw [place] By Mouth, 0 Refills, Maintenance, 08/17/22 11:05:00 [...] Team Personnel Name: Charleen Neri RN Position: [facility] RN Member Role: Primary Care Nurse Name: Min Mckenzie MD Position: [facility] Physician - Primary Care Member Role: PCP Address: Address: [address] [place] [address]- [place] Name: Vianey Gonzales NP Position: [facility] Associate Professional Member Role: Primary Care Nurse Address: Address: [address] [place] [address] Trauma and [place] [address]- [place] Name: Mara Daly RN Position: [facility] ED RN W/OE and Tasks Member Role: Primary Care Nurse Care Team Related Persons Name: PEDRO TACOS Address: [facility] [address] [place] [address]
--- OUTSIDE RECORDS SUMMARY | 2024-01-05 10:03 | XMS_ITS | Continuity of Care Document ---
Author Organization [facility] Address [address] [place] [address]- Care Team Providers Care Remnants Cutter Name Role Phone Magaly BARNARD, Min Blackman Primary Care Physician [facility] Date(s): 09/17/23 - 10/17/23 [facility] Adult [address] [place] [address]- Allergies, Adverse Reactions, Alerts Substance Reaction Severity [...] 3Location History: [facility] 4Result Comment: [id number] 5Location History: [facility] 6Location History: [...] tablet, 3 Refills, Maintenance, 09/08/23 14:28:00 EDT, [facility] #[id number], 175, cm, 09/08/23 14:11:00 EDT, Height, 99.4, kg, 03/20/23 21:57:00 EDT,Dry Weight Start Date: 09/08/23 Status: Ordered FLUoxetine 20 mg oral capsule See Instructions, TAKE 1 CAPSULE BY MOUTH DAILY, # 90 capsule, Refills 3, Tot. Refills 3, Maintenance, 09/08/23 14:28:00 EDT, Instructions Replace Required Details, Route to Pharmacy Electronically, [facility] #[id number], 175, cm, 09/08/23 14:11... Start Date: 09/08/23 Status: Ordered gemfibrozil 600 mg oral tablet 1, tablet, By Mouth, 2 times a day, # 180 tablet, Refills 3, Tot. Refills 3, Maintenance, 09/08/23 14:28:00 EDT, Route to Pharmacy Electronically, [facility] #[id number], 175, cm, 09/08/23 14:11:00 EDT, Height, 99.4, kg, 03/20/23 21:57:00 EDT, Start Date: 09/08/23 Status: Ordered losartan 50 mg oral tablet 50 mg, 1, tablet, By Mouth, Daily, # 90 tablet, Refills 3, Tot. Refills 3, Maintenance, 09/08/23 14:28:00 EDT, Route to Pharmacy Electronically, [facility] #[id number], Partial fill upon patientrequest if the prescription is for a schedule II op... Start Date: 09/08/23 Stop Date: 09/02/24 Status: Ordered Metoprolol Succinate ER 50 mg oral tablet, extended release 1 tablet, By Mouth, Daily, # 90 tablet, 3 Refills, Maintenance, 09/08/23 14:28:00 EDT, [facility] #[id number], 175, cm, 09/08/23 14:11:00 EDT, Height, 99.4, [...] 0 Refills, Maintenance, 04/01/23 15:46:00 EDT, Capsule, [facility], Partial fill upon patient request if the prescription is for a schedule II opioid drug., 175, cm, 03/20/23 22... Start Date: 04/01/23 Status: Ordered ZyrTEC 10 mg oral tablet See Instructions, 1 tablet By Mouth [address] scan, # 1 tablet, 0 Refills, Maintenance, 04/01/23 15:33:00 EDT, Tablet, [facility], Partial fill upon patient [...] Care Member Role: PCP Address: Address: [address] [place] [address]- Name: Vianey Gonzales NP Position: [facility] Associate Professional Member Role: Primary Care Nurse Address: Address: [address] [place] [address] Trauma and [place] [address]- Name: Felecia Villegas LPN [facility] [...] Team Related Persons Name: CIROTACOS POOL Address: [address] [address]
--- OUTSIDE RECORDS SUMMARY | 2024-01-05 10:03 | XMS_ITS | Continuity of Care Document ---
Author Organization [facility] Address [address] [place] [address]- Care Team Providers Care Shank Pinner Name Role Phone Magaly BARNARD, Min Blackman Primary Care Physician Encounter 02/19/23 - 02/26/23 [facility] [address] [place] [address]- Discharge Disposition: PER CLIENT REQUEST Allergies, Adverse Reactions, Alerts Substance Reaction Severity [...] 3Location History: [facility] 4Result Comment: [id number] 5Location History: [facility] 6Location History: [...] tablet, 3 Refills, Maintenance, 02/04/23 9:18:00 EDT, [facility] #[id number], 175.3, cm, 02/04/23 8:41:00 EDT, Height Start Date: 02/04/23 Status: Ordered erythromycin 0.5% ophthalmic ointment 0.5 inches, Eyes, Both, 4 times a day, # 4 Gm, 0 Refills, Maintenance, 10/22/22 10:20:00 EDT, OphthOintment, [facility] #[id number], Partial fill upon patient request if the [...] 02/04/23 9:18:00 EDT, Route to Pharmacy Electronically, [facility] #[id number], 175.3, cm, 02/04/23 8:41:00 EDT, Height Start Date: 02/04/23 Status: Ordered losartan 50 mg oral tablet 50 mg, 1, tablet, By Mouth, Daily, # 90 tablet, Refills 3, Tot. Refills 3, Maintenance, 02/04/23 9:19:00 EDT, Route to Pharmacy Electronically, [facility] #[id number], Partial fill upon patient request if the [...] tablet, 3 Refills, Maintenance, 02/04/23 9:18:00 EDT, [facility] #[id number], 175.3, cm, 02/04/23 8:41:00 EDT, Height Start [...] Team Personnel Name: Sasha Queen RN Position: [facility] RN Member Role: Primary Care Nurse Name: Charleen Neri RN Position: [facility] RN Member Role: Primary Care Nurse Name: Min Mckenzie MD Position: [facility] Physician - Primary Care Member Role: PCP Address: Address: [address] [place] [address]- Name: Vianey Gonzales NP Position: [facility] Associate Professional Member Role: Primary Care Nurse Address: Address: [address] [place] [address] Trauma and [place] [address]- Name: Felecia Villegas LPN Position: [facility] RN Member Role: Primary Care Nurse Name: Geovanna Kumari RN Position: [facility] RN Member Role: Primary Care Nurse Name: Tali Paul RN Position: [facility] RN Member Role: Primary Care Nurse Name: Alicia Croft RN Position: [facility] RN Member Role: Primary Care Nurse Name: Luisa Mitchell RN Position: [facility] RN Member Role: Primary Care Nurse Name: Nirav Nicholson RN Position: [facility] RN Member Role: Primary Care Nurse Name: Mara Miranda RN Position: [facility] RN Member Role: Primary Care Nurse Name: Mara Daly RN Position: [facility] ED RN W/OE and Tasks Member Role: Primary Care Nurse Name: Emy Balderas LPN Position: S RN Member Role: Primary Care Nurse Care Team Related Persons Name: PEDRO TACOS Address: [address] [address]
--- OUTSIDE RECORDS SUMMARY | 2024-01-05 10:03 | XMS_ITS | Continuity of Care Document ---
Author Organization [facility] Aki lt Address [address] [place] [address]- Care Team Providers Care [place] Operator Name Role Phone Min Mckenzie MD Primary Care Physician Encounter [facility] Date(s): 03/01/23 - 03/31/23 [facility] Adult [address] [place] [address]- Allergies, Adverse Reactions, Alerts Substance Reaction Severity [...] 3Location History: [facility] 4Result Comment: [id number] 5Location History: [facility] 6Location History: [...] tablet, 3 Refills, Maintenance, 02/04/23 9:18:00 EDT, [facility] #[id number], 175.3, cm, 02/04/23 8:41:00 EDT, Height Start Date: 02/04/23 Status: Ordered erythromycin 0.5% ophthalmic ointment 0.5 inches, Eyes, Both, 4 times a day, # 4 Gm, 0 Refills, Maintenance, 10/22/22 10:20:00 EDT, OphthOintment, [facility] #[id number], Partial fill upon patient request if the [...] 02/04/23 9:18:00 EDT, Route to Pharmacy Electronically, [facility] #[id number], 175.3, cm, 02/04/23 8:41:00 EDT, Height Start Date: 02/04/23 Status: Ordered losartan 50 mg oral tablet 50 mg, 1, tablet, By Mouth, Daily, # 90 tablet, Refills 3, Tot. Refills 3, Maintenance, 02/04/23 9:19:00 EDT, Route to Pharmacy Electronically, [facility] #[id number], Partial fill upon patient request if the [...] tablet, 3 Refills, Maintenance, 02/04/23 9:18:00 EDT, [facility] #[id number], 175.3, cm, 02/04/23 8:41:00 EDT, Height Start [...] Team Personnel Name: Dawna Oshea RN Position: [facility] RN Member Role: Primary Care Nurse Name: Teresa Carey RN Position: [facility] RN Member Role: Primary Care Nurse Name: Sasha Queen RN Position: [facility] RN Member Role: Primary Care Nurse Name: Charleen Neri RN Position: [facility] RN Member Role: Primary Care Nurse Name: Min Mckenzie MD Position: [facility] Physician - Primary Care Member Role: PCP Address: Address: [address] [place] [id number]- Name: Vianey Gonzales NP Position: [facility] Associate Professional Member Role: Primary Care Nurse Address: Address: [address] [place] [address] Trauma and [place] [address]- Name: Felecia Villegas LPN Position: [facility] RN Member Role: Primary Care Nurse Name: Geovanna Kumari RN Position: [facility] RN Member Role: Primary Care Nurse Name: Shi Dawn RN Position: [facility] RN Member Role: Primary Care Nurse Name: Tali Paul RN Position: S RN Member Role: Primary Care Nurse Name: Alicia Croft RN Position: [facility] RN Member Role: Primary Care Nurse Name: Aicha Lai RN Position: [facility] RN Member Role: Primary Care Nurse Name: Dino Fleming RN Position: [facility] RN Member Role: Primary Care Nurse Name: Luisa Mitchell RN Position: [facility] RN Member Role: Primary Care Nurse Name: Storm Gutierrez RN Position: [facility] RN Member Role: Primary Care Nurse Name: Nirav Nicholson RN Position: [facility] RN Member Role: Primary Care Nurse Name: Elaine Clark RN Position: [facility] RN Member Role: Primary Care Nurse Name: Mara Miranda RN Position: [facility] RN Member Role: Primary Care Nurse Name: Mara Daly RN Position: [facility] ED RN W/OE and Tasks Member Role: Primary Care Nurse Name: Nellie Vivas RN Position: [facility] RN Member Role: Primary Care Nurse Name: Emy Balderas LPN Position: [facility] RN Member Role: Primary Care Nurse Name: Caitlyn Anderson RN Position: [facility] RN Member Role: Primary Care Nurse Name: Lelia Clarke RN Position: [facility] RN Member Role: Primary Care Nurse Care Team Related Persons Name: TACOS VASQUEZ Address: [address] [address]
--- OUTSIDE RECORDS SUMMARY | 2024-01-05 10:04 | XMS_ITS | Continuity of Care Document ---
Author Organization [facility] ter Address [address] [place] [id number] Care Team Providers Care Shank Stapler Name Role Phone Min Mckenzie MD Primary Care Physician [phone] [place] [facility] [place]/21[place]23 - 04/02/[address] [address] Discharge Disposition: A-Transfer VNA/Home Health Attending Physician: Jarad Panda MD Admitting Physician: Jarad Panda MD Referring Physician: Not on Staff, Referring [...] 3Location History: [facility] 4Result Comment: [id number] 5Location History: [facility] 6Location History: [...] tablet, 3 Refills, Maintenance, 02/04/23 9:18:00 EDT, [facility] #[id number], 175.3, cm, 02/04/23 8:41:00 EDT, Height Start Date: 02/04/23 Status: Ordered Augmentin 875 mg-125 mg oral tablet 1 tablet, By Mouth, Every 8 hours, for 14 days, # 42 tablet, 0 Refills, Acute 04/15/23 15:27:00 EDT, 04/01/23 15:27:00 EDT, Tablet, [facility], Partial fill upon patient request if the prescription is for a schedule II opioid drug., 175,... Start Date: 04/01/23 Stop Date: 04/15/23 Status: Ordered gemfibrozil 600 mg oral tablet 1, tablet, By Mouth, 2 times a day, # 180 tablet, Refills 3, Tot. Refills 3, Maintenance, 02/04/23 9:18:00 EDT, Route to Pharmacy Electronically, [facility] #[id number], 175.3, cm, 02/04/23 8:41:00 EDT, Height Start Date: 02/04/23 Status: Ordered losartan 50 mg oral tablet 50 mg, 1, tablet, By Mouth, Daily, # 90 tablet, Refills 3, Tot. Refills 3, Maintenance, 02/04/23 9:19:00 EDT, Route to Pharmacy Electronically, [facility] #[id number], Partial fill upon patient request if the prescription is for a schedule II opi... Start Date: 02/04/23 Stop Date: 01/30/24 Status: Ordered losartan 50 mg oral tablet 50 mg, Tablet, By Mouth, 04/02/23 9:00:00 EDT Start Date: 04/02/23 Stop Date: 04/02/23 Status: Completed Medrol 32 mg oral tablet See Instructions, take 32 mg by mouth [address] scan, then take another 32 mg by mouth 2hours prior to CT scan., # 2 tablet, 0 Refills, Acute 04/17/23 16:00:00 EDT, 04/01/23 15:31:00 EDT,[facility], Partial fill upon patient... Start Date: 04/01/23 Stop Date: 04/17/23 Status: Ordered metoprolol 50 mg oral tablet, extended release 50 mg, XL Tablet, By Mouth, 04/02/23 9:00:00 EDT Start Date: 04/02/23 Stop Date: 04/02/23 Status: Completed Metoprolol Succinate ER 50 mg oral tablet, extended release 1 tablet, By Mouth, Daily, # 90 tablet, 3 Refills, Maintenance, 02/04/23 9:18:00 EDT, [facility] #[id number], 175.3, cm, 02/04/23 8:41:00 EDT, Height Start [...] 0 Refills, Maintenance, 04/01/23 15:46:00 EDT, Capsule, [facility], Partial fill upon patient request if the prescription is for a schedule II opioid drug., 175, cm, 03/20/23 22... Start Date: 04/01/23 Status: Ordered ZyrTEC 10 mg oral tablet See Instructions, 1 tablet By Mouth [address], # 1 tablet, 0 Refills, Maintenance, 04/01/23 15:33:00 EDT, Tablet, [facility], Partial fill upon [...] atherectomy. 2004 angioplasty with stent 3WITH BLEEDING Results Orders for Microbiology Reports Name Date Blood Culture 03/22/23 Blood Culture #2 03/22/23 Blood Culture 03/20/23 Blood Culture #2 03/20/23 Microbiology Reports TEST:Blood Culture STATUS:Auth (Verified) BODY SITE: SOURCE:Blood COLLECTED DATE/TIME:03/22/23 3:53 PM Blood Culture SPECIMEN DESCRIPTION : BLOOD LT ARM SPECIAL REQUESTS : NONE CULTURE : NO GROWTH 5 DAYS. REPORT STATUS : FINAL 03/27/2023 TEST:Blood Culture, Second Order STATUS:Auth (Verified) BODY SITE: SOURCE:Blood COLLECTED DATE/TIME:03/22/23 3:50 PM Blood Culture, Second Order SPECIMEN DESCRIPTION : BLOOD RT ARM SPECIAL REQUESTS : NONE CULTURE : NO GROWTH 5 DAYS. REPORT STATUS : FINAL 03/27/2023 TEST:Blood Culture STATUS:Auth (Verified) BODY SITE: SOURCE:Blood COLLECTED DATE/TIME:03/20/23 4:47 PM Blood Culture SPECIMEN DESCRIPTION : BLOOD L WR SPECIAL REQUESTS : CRITICAL VALUE CALLED AND VERIFIED BY READBACK FOR: GRAM POSITIVE [place] [address], AT 1248, 03/22/23, BY TECH 169 CULTURE : ACTINOMYCES ODONTOLYTICUS This isolate was identified using Maldi-TOF system SUSCEPTIBILITY TESTING NOT ROUTINELY PERFORMED ON THIS ISOLATE. Further identification to follow. No target organisms detected using the dELiAs BCID panel. This panel includes 33 bacterial and fungal targets and 10 resistance mechanisms. REPORT STATUS : FINAL 03/23/2023 TEST:Blood Culture, Second Order STATUS:Auth (Verified) BODY SITE: SOURCE:Blood COLLECTED DATE/TIME:03/20/23 4:47 PM Blood Culture, Second Order SPECIMEN DESCRIPTION : BLOOD R AC SPECIAL REQUESTS : NONE CULTURE : NO GROWTH 5 DAYS. REPORT STATUS : FINAL 03/25/2023 Radiology Reports (Most Recent Ten) * Exam Date Time Procedure Performing Provider Status 04/01/23 10:[address] Abd/Pelvis W/ IV + Oral Contrast Desire Orr; Auth (Verified) Notes: (CT Abd/Pelvis W/ IV + Oral Contrast) Reason For Exam: Postop RESULT: CT Abd/Pelvis W/ IV + Oral Contrast CT Abd/Pelvis W/ IV + Oral Contrast Reason: Postop; Clinical Question(s): Abscess; Order Comment: TECHNIQUE: Spiral CT through the abdomen and pelvis with IV contrast formatted in 3 planes. 100 cc of Omnipaque 300 was administered intravenously. This study was performed without oral contrast. Weight-based protocol using automatic tube modulation was used to optimize exposure parameters. CTDIvol Body: 17.40 mGy, DLP Body: 1135 mGy*cm. COMPARISON: 03/29/2023 FINDINGS: Hydrometer Finisher View Findings, Lines and Tubes: None. Visualized Chest: There is basilar atelectasis Diaphragm: Tiny hiatal hernia Liver: No acute abnormality. There is an area of low-attenuation adjacent to the periphery of the liver which is progressively decreasing in size and has some peripheral rim enhancement series 201 image 36, now measuring up to 1.3 cm (1.3 x 1.0 cm), previously up to approximately 2 cm. Gallbladder: Post cholecystectomy. Small area of stranding and trace fluid is decreased in size with resolution of previously present air, now measuring 2.9 x 1.5 cm. Previously this measured up to 3.1 x 1.8 cm. A small separate locule with also mild wall thickening is seen extending anteriorly from this area and now appears separate to the collection, for example at series 201 image 42. This is up to 8 mm in thickness, previously 9 mm in thickness and is overall slightly decreased in size as well. There is small volume of stranding and fluid extending inferiorly from the gallbladder fossa, at its medial aspect worse the duodenum, example series 201 image 52, also slightly decreased. Bile ducts: Mild residual pneumobilia which can relate to sphincterotomy This is seen in the common bile duct as well as central liver. Spleen: Normal. Pancreas: Normal. Adrenal glands: Normal. Kidneys and ureters: No hydronephrosis or solid mass. Simple appearing renal cysts and hypodensities that are too small to characterize are noted, requiring no dedicated follow up. Bladder: Normal. Reproductive organs: Unremarkable. Stomach, small bowel, and large bowel: Prior bowel surgery. No obstruction. Moderate stool burden in the distal colon. There is also colorectal anastomosis. No regional collection or stranding. Appendix: Normal. Peritoneum and retroperitoneum: Trace stranding and fluid in the right upper quadrant, as above. Noomental or mesenteric lesions. Lymph nodes: No enlarged lymph nodes. Blood vessels: Mild vascular calcifications but no aneurysm. No evidence of venous thrombosis. Abdominal and pelvic wall: There are bilateral fat-containing inguinal hernias. This is small to moderate on the right and small on the left Bones: No acute abnormality. Multilevel degenerative changes. IMPRESSION: Progressive decrease in size of area of fluid and stranding in the gallbladder fossa compared to 03/29/2023. Additional smaller area of loculated appearing fluid with mild peripheral enhancement anteriorly and adjacent to the gallbladder fossa collection is also slightly smaller in size and there is decreased regional stranding and free fluid extending inferomedially. Rim-enhancing area of fluid in the liver parenchyma adjacent to this area, concerning for small hepatic abscess, is also decreased in size. No new or separate fluid collections. WSN: [id number] Ordering Physician: Shaniqua Sherman Dictated By: Leslie Goldsmith MD Dictated Date/Time: 04/01/23 1:25 pm Reviewed By: Leslie Goldsmith MD Signed By: Leslie Goldsmith MD Signed Date/Time: 04/01/23 1:25 pm Transcribed By: TONG Transcribed Date/Time: 04/01/23 1:21 pm * Exam Date Time Procedure Performing Provider Status 03/29/23 10:[address] Abd/Pelvis W/ IV Contrast Only Kate Morel; Aram (Verified) Notes: (CT Abd/Pelvis W/ IV Contrast Only) Reason For Exam: ongoing cystic duct leak;Postop RESULT: CT Abd/Pelvis W/ IV Contrast Only CT Abd/Pelvis W/ IV Contrast Only Reason: Postop; ongoing cystic duct leak; Clinical Question(s): Abscess; eval gallbladder fossa fordrainable collection; Order Comment: Per EMR: Status post left first ectopic cholecystectomy complicated by cystic duct leak requiring CBD stent placement. . CBD stent has since been removed, but recent ERCP 03/27/2023 demonstrated persistent bile leak in the region of the gallbladder fossa, and pus in the duodenum likely from the cystic duct. TECHNIQUE: Spiral CT through the abdomen and pelvis with IV contrast formatted in 3 planes. 100 cc of Omnipaque 300 was administered intravenously. This study was performed without oral contrast. Weight-based protocol using automatic tube modulation was used to optimize exposure parameters. CTDIvol Body: 19.50 mGy, DLP Body: 1358 mGy*cm. COMPARISON: ERCP 03/27/2023. CT abdomen and pelvis 03/23/2023, 03/20/2023.. FINDINGS: Hydrometer Finisher View Findings, Lines and Tubes: None. Visualized Chest: Small right and trace left pleural effusions. Extensive atelectasis of the right lower lobe, as well as smaller areas of the right middle lobe and left lower lobe. The heart is normal in size. No pericardial effusion. Diaphragm: Normal. Liver: There has been slight increase in size of a bilobed rim-enhancing collection in the right hepatic lobe superior to the gallbladder fossa. This measures 2.0 x 1.2 x 1.5 cm (201:33, 202:40), previously 1.5 x 0.6 x 1.4 cm. The liver is otherwise unremarkable. Gallbladder: Status post cholecystectomy. There is heterogeneous attenuation in the cholecystectomybed, with a comminution of fat stranding, appendicolith linear soft tissue likely reflecting scarring, and ill-defined areas of fluid attenuation compatible with fluid. Ill-defined fluid in the cholecystectomy bed measures approximately 3.1 cm in length in the axial plane long axis of the gallbladder fossa, but only 0.8 cm in thickness in the axial plane (201:38) and 1 cm in superior inferior extent (202:44). Margins are ill-defined. This has decreased in size from the study of 03/23/2023, and surrounding fat stranding has decreased. There is an additional tiny rim-enhancing collection anterior to the gallbladder fossa between the liver and abdominal wall, measuring 1.7 x 0.9 x 1.3 cm (201:38, 202:30). This is also decreased from prior, previously approximately 2.8 x 1.2 x 1.6 cm. Bile ducts: No biliary ductal dilation. Mild pneumobilia in the CBD and intrahepatic bile ducts. Spleen: Normal. Pancreas: Normal. Adrenal glands: Normal. Kidneys and ureters: No hydronephrosis, stones, or suspicious masses. Simple appearing renal cysts and hypodensities that are too small to characterize are noted, requiring no dedicated follow up. Bladder: Normal. Reproductive organs: Unremarkable. Stomach, small bowel, and large bowel: Normal in course and caliber without obstruction or inflammatory change. Small bowel anastomosis in the right lower quadrant is unremarkable. Rectosigmoid anastomosis is also unremarkable. Scattered colonic diverticula without diverticulitis. Appendix: Normal. Peritoneum and retroperitoneum: See above description of stranding and small fluid collections in the gallbladder fossa. No ascites or pneumoperitoneum. No omental or mesenteric lesions. Lymph nodes: No enlarged lymph nodes. Blood vessels: Mild vascular calcifications but no aneurysm. No evidence of venous thrombosis. Abdominal and pelvic wall: Fat-containing inguinal hernias, right greater than left.. Bones: No acute abnormality. Scattered degenerative changes of the spine. Loss of disc space and endplate sclerosis is greatest at L5-S1. Several Schmorl's nodes are present. IMPRESSION: 1. Ill-defined fluid and stranding in the gallbladder fossa has decreased since 03/23/2023. Small residual ill-defined collection in the gallbladder fossa measuring approximately estimated at 3.1 x 0.8 x 1 cm has decreased from prior, as has a small rim-enhancing collection/abscess into the gallbladder fossa measuring 1.7 x 0.9 x 1.3 cm. 2. Interval increase in rim-enhancing collection consistent with abscess in the liver above the gallbladder fossa measuring 2.0 x 1.2 x 1.5 cm. 3. No new fluid collections. WSN: [id number] Ordering Physician: Desire Garcia Dictated By: Viki Boston MD Dictated Date/Time: 03/29/23 11:09 a Reviewed By: Viki Boston MD Signed By: Viki Boston MD Signed Date/Time: 03/29/23 11:09 am Transcribed By: TONG Transcribed Date/Time: 03/29/23 10:42 am * Exam Date Time Procedure Performing Provider Status 03/27/23 2:48 PM ERCP Both Ducts Linda Bermudez; Auth (Verified) Notes: (ERCP Both Ducts) Reason For Exam: biliary leak; stent pull RESULT: ERCP Both Ducts ERCP Both Ducts INDICATION: 67-year-old male with history of biliary leak after laparoscopic cholecystectomy treated with stent placement; stent pull. COMPARISONS: Enhanced CT abdomen and pelvis March 23, 2023, ERCP February 13, 2023. TECHNIQUE: Fluoroscopy support was provided. There was no radiologist in attendance. FLUOROSCOPY TIME: 45.1 seconds EXPOSURE: 4.2136 Gycm2 (Dose Area Product) TECHNOLOGIST TIME: 50 minutes FINDINGS: Initially, two plastic stents are seen as well as cholecystectomy clips in the RIGHT upper quadrant. The stents are removed and injection into the common bile duct shows no evidence of dilatation or filling defects. There is however opacification of the cystic duct and evidence of bile leak from the cystic duct, moderate in volume. IMPRESSION: 1. Removal of two plastic stents in the common bile duct. 2. Evidence of bile date extending from the cystic duct remnant. 3. No evidence of common bile duct dilatation or choledocholithiasis. Thank you for allowing me to participate in the care of this patient. WSN: [id number] Ordering Physician: Sina Carlos Dictated By: Kvng Riggins MD Dictated Date/Time: 03/27/23 4:58 pm Reviewed By: Kvng Riggins MD Signed By: Kvng Riggins MD Signed Date/Time: 03/27/23 4:58 pm Transcribed By: TONG Transcribed Date/Time: 03/27/23 4:52 pm * Exam Date Time Procedure Performing Provider Status 03/23/23 8:[address] Abd/Pelvis W/ IV Contrast Only Summer Gerard; Auth (Verified) Notes: (CT Abd/Pelvis W/ IV Contrast Only) Reason For Exam: Postop;Postop RESULT: CT Abd/Pelvis W/ IV Contrast Only CT Abd/Pelvis W/ IV Contrast Only Reason: Postop; Order Comment: TECHNIQUE: Spiral CT through the abdomen and pelvis with IV contrast formatted in 3 planes. 100 cc of Omnipaque 300 was administered intravenously. This study was performed without oral contrast. Weight-based protocol using automatic tube modulation was used to optimize exposure parameters. CTDIvol Body: 15.25 mGy, DLP Body: 1125 mGy*cm. COMPARISON: CT of the abdomen and pelvis 03/20/2023. FINDINGS: Hydrometer Finisher View Findings, Lines and Tubes: Partially imaged central venous catheter with tip in the superior vena cava.. Visualized Chest: Small right and trace left pleural effusion with overlying atelectasis. The heartis normal in size. No pericardial effusion. Coronary artery calcifications are demonstrated. Diaphragm: Elevated right hemidiaphragm. Liver: Periportal edema. There is a small ovoid hypodensity in the right lower the liver adjacent to the collection which has a slightly septated appearance, measuring 1.5 x 0.6 cm on image 26 of series 201. Gallbladder: Cholecystectomy. There is stranding and mixed attenuation material in the gallbladder fossa, with the stranding slightly decreased from the previous exam. It continues to measure approximately 4.2 x 2.9 cm on image 42 of series 201, adjacent to the biliary stents. Bile ducts: Trace pneumobilia. Spleen: Normal. Pancreas: Normal. Adrenal glands: Normal. Kidneys and ureters: No hydronephrosis, stones, or suspicious masses. Bladder: Decompressed around a Townsend catheter, limiting assessment. Reproductive organs: Mild prostatomegaly again demonstrated. Stomach, small bowel, and large bowel: No evidence of obstruction or inflammatory change. Postsurgical changes noted with small bowel anastomosis in the right midabdomen and a rectosigmoid anastomosis. The biliary stents terminate in the duodenum. Appendix: Normal. Peritoneum and retroperitoneum: No ascites or pneumoperitoneum. No omental or mesenteric lesions. Lymph nodes: No enlarged lymph nodes. Blood vessels: Mild vascular calcifications but no aneurysm. No evidence of venous thrombosis. Abdominal and pelvic wall: Small fat-containing inguinal hernias. Bones: No acute abnormality. IMPRESSION: Persistent heterogeneous density in the gallbladder fossa, with decrease in surrounding inflammatory change. This again could be due to hematoma, biloma, or postsurgical infection. Adjacent 1.5 x 0.6 cm hypodensity in the right lobe of the liver adjacent to the gallbladder fossa collection is better defined than on the previous exam and appears septated, suspicious for small hepatic abscess. Small bilateral pleural effusions with overlying atelectasis. WSN: [id number] Ordering Physician: Axel Yin Dictated By: Alyssa Donohue MD Dictated Date/Time: 03/23/23 8:50 am Reviewed By: Alyssa Donohue MD Signed By: Alyssa Donohue MD Signed Date/Time: 03/23/23 8:50 am Transcribed By: TONG Transcribed Date/Time: 03/23/23 8:35 am * Exam Date Time Procedure Performing Provider Status 03/21/23 1:25 AM C-Arm > 1 Hour Trina Altman; Aram (Verified) Notes: (C-Arm > 1 Hour) Reason For Exam: SEPTIC SHOCK TRANSAMINITIS BILIARY LEAK VS CHOLAN RESULT: C-Arm > 1 Hour C-Arm > 1 Hour INDICATION: Reason: SEPTIC SHOCK TRANSAMINITIS BILIARY LEAK VS CHOLAN COMPARISONS: None TECHNIQUE: Fluoroscopy support was provided. There was no radiologist in attendance. FLUOROSCOPY TIME: 02 minutes 20 seconds EXPOSURE: 13.747 Gycm2 (Dose Area Product) TECHNOLOGIST TIME: 1 hour, 50 minutes FINDINGS: Fluoroscopy support was provided. There was no radiologist in attendance. IMPRESSION: See above. WSN: [id number] Ordering Physician: Deny Valderrama Dictated By: Eduardo Buckley MD Dictated Date/Time: 03/24/23 9:38 am Reviewed By: Eduardo Buckley MD Signed By: Eduardo Buckley MD Signed Date/Time: 03/24/23 9:38 am Transcribed By: TONG Transcribed Date/Time: 03/22/23 7:47 pm * Exam Date Time Procedure Performing Provider Status 03/22/23 2:22 PM Chest Portable Brittany Rodriguez; Aram (V erified) Notes: (Chest Portable) Reason For Exam: Tube Placement RESULT: Chest Portable Chest Portable Reason: Tube Placement COMPARISON: CXR 03/21/2023, 03/20/2023 FINDINGS: LINES AND TUBES: Right IJ central venous catheter terminates at the lower SVC. LUNGS AND PLEURA: Low lung volumes with mild bibasilar atelectasis. Elevated right hemidiaphragm. Normal pulmonary vascularity. No pleural effusion. No pneumothorax. HEART, MEDIASTINUM AND DANIEL: Heart is normal in size. Normal mediastinal and hilar contour. BONES AND SOFT TISSUES: No acute abnormality. IMPRESSION: No interval change . I have personally reviewed the images and I agree with this report. WSN: [id number] Ordering Physician: Iván Kumari Dictated By: Basil Baca MD Dictated Date/Time: 03/22/23 4:07 pm Reviewed By: Bradley Bland MD, V Signed By: Bradley Bland MD, V Signed Date/Time: 03/22/23 4:12 pm Transcribed By: TONG Transcribed Date/Time: 03/22/23 3:53 pm * Exam Date Time Procedure Performing Provider Status 03/21/23 3:33 AM Chest Portable Trina Altman (Verified) Notes: (Chest Portable) Reason For Exam: RIJ TLC;Line Placement RESULT: Chest Portable Chest Portable Reason: Line Placement; RIJ TLC / COMPARISON: 03/20/2023 FINDINGS: LINES AND TUBES: Right internal jugular central venous catheter tip projects at the superior cavoatrial junction. Partially visualized plastic biliary stent. LUNGS AND PLEURA: Persistent elevated right hemidiaphragm. Bibasilar airspace opacity, similar to prior. No pleural effusion. No pneumothorax. HEART, MEDIASTINUM AND DANIEL: Unchanged. BONES AND SOFT TISSUES: No acute abnormality. IMPRESSION: 1. No pneumothorax after right internal jugular central venous catheter placement. 2. Low lung volumes with bibasilar airspace opacity, likely due to atelectasis. Pneumonia is possible. WSN: [id number] Ordering Physician: Fritz Grace Dictated By: Robbi Mendoza MD Dictated Date/Time: 03/21/23 7:18 am Reviewed By: Robbi Mendoza MD Signed By: Robbi Mendoza MD Signed Date/Time: 03/21/23 7:18 am Transcribed By: TONG Transcribed Date/Time: 03/21/23 7:16 am * Exam Date Time Procedure Performing Provider Status 03/21/23 1:25 AM ERCP Both Ducts Trina Altman ; Auth (Verified) Notes: (ERCP Both Ducts) Reason For Exam: SEPTIC SHOCK TANSAMINITIS BILIARY LEAK VS CHOLAN RESULT: ERCP Both Ducts ERCP Both Ducts INDICATION: Reason: SEPTIC SHOCK TRANSAMINITIS BILIARY LEAK VS CHOLAN COMPARISONS: None TECHNIQUE: Fluoroscopy support was provided. There was no radiologist in attendance. FLUOROSCOPY TIME: 02 minutes 20 seconds EXPOSURE: 13.747 Gycm2 (Dose Area Product) TECHNOLOGIST TIME: 01 hour 50 minutes FINDINGS: 14 images were submitted. Please refer to operative note for full details. IMPRESSION: See above. WSN: [id number] Ordering Physician: Deny Valderrama Dictated By: Robbi Mendoza MD Dictated Date/Time: 03/21/23 6:32 am Reviewed By: Robbi Mendoza MD Signed By: Robbi Mendoza MD Signed Date/Time: 03/21/23 6:32 am Transcribed By: TONG Transcribed Date/Time: 03/21/23 6:31 am * Exam Date Time Procedure Performing Provider Status 03/20/23 6:[address] Abd/Pelvis W/ IV Contrast Only Asia Jha; Auth (Verified) Notes: (CT Abd/Pelvis W/ IV Contrast Only) Reason For Exam: diffuse abodminal pain, sepsis;Other: RESULT: CT Abd/Pelvis W/ IV Contrast Only CT Abdomen and Pelvis W/O Contrast, CT Abd/Pelvis W/ IV Contrast Only Reason: Other:; septic shock, hx nephrolithiasis, eval for stone; Clinical Question(s): Calculus TECHNIQUE: Spiral CT through the abdomen and pelvis without IV contrast formatted in 3 planes. Noncontrast acquisition was immediately followed by CT of the abdomen and pelvis with IV contrast after administration of 100 cc Omnipaque 300 IV contrast. This study was performed without oral contrast. Weight-based protocol using automatic tube modulation was used to optimize exposure parameters. CTDIvol Body: 18.60 mGy, DLP Body: 1096 mGy*cm. (accession [id number]), CTDIvol Body: 18.50 mGy, DLP Body: 1201 mGy*cm. (accession [id number]) COMPARISON: February 17, 2023. FINDINGS: Hydrometer Finisher View Findings, Lines and Tubes: None. Visualized Chest: Atelectasis at the lung bases without pleural or pericardial effusion. Diaphragm: Unremarkable noncontrasted appearance of the partially imaged liver. Liver: Hypoattenuation hepatic parenchyma compatible hepatic steatosis. 2 small focal areas of low attenuation noted adjacent to the gallbladder fossa likely within the hepatic parenchyma (series 202image 48, 45). These measure up to approximately 1.7 cm each. Gallbladder: Surgically absent. There is increased stranding and mixed attenuation within the gallbladder fossa, new from the prior study, for example measuring up to 4.6 x 2.2 cm directly adjacent to the cholecystectomy clips (series 201 image 26), with heterogeneous attenuation measuring up to alex roximately 4.2 x 3.0 cm more inferiorly (series 201 image 36). This is contiguous with stranding that extends anteriorly along the right upper quadrant to the level of the peritoneal surface (series 2 image 29). Bile ducts: Trace pneumobilia as expected in the setting of a well-positioned biliary stent. No significant ductal dilatation. Spleen: Normal. Pancreas: Normal. Adrenal glands: Normal. Kidneys and ureters: No hydronephrosis, stones, or noncontrast evidence of suspicious masses. Bladder: Normal. Reproductive organs: Mild prostatomegaly. Stomach, small bowel, and large bowel: Stomach is unremarkable. Small bowel loops are normal in course and caliber without evidence of obstruction. Small bowel anastomosis is noted in the right midabdomen. Rectosigmoid anastomosis is noted as well with adjacent scarring but no complication. Appendix: Normal. Peritoneum and retroperitoneum: No ascites or pneumoperitoneum. No omental or mesenteric lesions. Lymph nodes: No enlarged lymph nodes. Blood vessels: Mild atherosclerotic calcification of the aorta. No evidence of venous thrombosis. Abdominal and pelvic wall: Small bilateral fat-containing indirect inguinal hernias. Bones: No acute abnormality. Mild degenerative changes throughout the spine. IMPRESSION: Interval increase in stranding and heterogeneous attenuation in the gallbladder fossa when comparedwith the prior postoperative study, which may be due to developing postoperative infection, hematoma, ongoing bile leak, or some combination. Hypoattenuation within the hepatic parenchyma adjacent tothe gallbladder fossa is new from the prior study as well and concerning for early changes of hepatic abscess. The impression above was relayed to Dr. Zoë Hernández by Dr. Paul Mendieta over the phone on 03/20/2023 at 6:13 PM. WSN: [id number] Ordering Physician: Juanita Donato Dictated By: Paul Mendieta MD Dictated Date/Time: 03/20/23 6:14 pm Reviewed By: Paul Mendieta MD Signed By: Paul Mendieta MD Signed Date/Time: 03/20/23 6:14 pm Transcribed By: TONG Transcribed Date/Time: 03/20/23 5:59 pm * Exam Date Time Procedure Performing Provider Status 03/20/23 5:[address] Abdomen and Pelvi s W/O Contrast Asia Dyson; Auth (Verified) Notes: (CT Abdomen and Pelvis W/O Contrast) Reason For Exam: septic shock, hx nephrolithiasis, eval for stone;Other: RESULT: CT Abdomen and Pelvis W/O Contrast CT Abdomen and Pelvis W/O Contrast, CT Abd/Pelvis W/ IV Contrast Only Reason: Other:; septic shock, hx nephrolithiasis, eval for stone; Clinical Question(s): Calculus TECHNIQUE: Spiral CT through the abdomen and pelvis without IV contrast formatted in 3 planes. Noncontrast acquisition was immediately followed by CT of the abdomen and pelvis with IV contrast after administration of 100 cc Omnipaque 300 IV contrast. This study was performed without oral contrast. Weight-based protocol using automatic tube modulation was used to optimize exposure parameters. CTDIvol Body: 18.60 mGy, DLP Body: 1096 mGy*cm. (accession [id number]), CTDIvol Body: 18.50 mGy, DLP Body: 1201 mGy*cm. (accession [id number]) COMPARISON: February 17, 2023. FINDINGS: Hydrometer Finisher View Findings, Lines and Tubes: None. Visualized Chest: Atelectasis at the lung bases without pleural or pericardial effusion. Diaphragm: Unremarkable noncontrasted appearance of the partially imaged liver. Liver: Hypoattenuation hepatic parenchyma compatible hepatic steatosis. 2 small focal areas of low attenuation noted adjacent to the gallbladder fossa likely within the hepatic parenchyma (series 202image 48, 45). These measure up to approximately 1.7 cm each. Gallbladder: Surgically absent. There is increased stranding and mixed attenuation within the gallbladder fossa, new from the prior study, for example measuring up to 4.6 x 2.2 cm directly adjacent to the cholecystectomy clips (series 201 image 26), with heterogeneous attenuation measuring up to alex roximately 4.2 x 3.0 cm more inferiorly (series 201 image 36). This is contiguous with stranding that extends anteriorly along the right upper quadrant to the level of the peritoneal surface (series 2 image 29). Bile ducts: Trace pneumobilia as expected in the setting of a well-positioned biliary stent. No significant ductal dilatation. Spleen: Normal. Pancreas: Normal. Adrenal glands: Normal. Kidneys and ureters: No hydronephrosis, stones, or noncontrast evidence of suspicious masses. Bladder: Normal. Reproductive organs: Mild prostatomegaly. Stomach, small bowel, and large bowel: Stomach is unremarkable. Small bowel loops are normal in course and caliber without evidence of obstruction. Small bowel anastomosis is noted in the right midabdomen. Rectosigmoid anastomosis is noted as well with adjacent scarring but no complication. Appendix: Normal. Peritoneum and retroperitoneum: No ascites or pneumoperitoneum. No omental or mesenteric lesions. Lymph nodes: No enlarged lymph nodes. Blood vessels: Mild atherosclerotic calcification of the aorta. No evidence of venous thrombosis. Abdominal and pelvic wall: Small bilateral fat-containing indirect inguinal hernias. Bones: No acute abnormality. Mild degenerative changes throughout the spine. IMPRESSION: Interval increase in stranding and heterogeneous attenuation in the gallbladder fossa when comparedwith the prior postoperative study, which may be due to developing postoperative infection, hematoma, ongoing bile leak, or some combination. Hypoattenuation within the hepatic parenchyma adjacent tothe gallbladder fossa is new from the prior study as well and concerning for early changes of hepatic abscess. The impression above was relayed to Dr. Zoë Hernández by Dr. Paul Mendieta over the phone on 03/20/2023 at 6:13 PM. WSN: [id number] Ordering Physician: Juanita Donato Dictated By: Paul Mendieta MD Dictated Date/Time: 03/20/23 6:14 pm Reviewed By: Paul Mendieta MD Signed By: Paul Mendieta MD Signed Date/Time: 03/20/23 6:14 pm Transcribed By: TONG Transcribed Date/Time: 03/20/23 5:59 pm Vital Signs Most recent to oldest [Reference Range]: 1 2 3 Weight 103.4 kg (03/27/23 1:32 PM) 103.4 kg (03/23/23 9:00 AM) 94.7 kg (03/21/23 7:00 AM) Oxygen Saturation [94-100 %] 97 % (04/02/23 11:10 AM) 100 % (04/02/23 7:00 AM) 96 % (04/02/23 4:22 AM) Pulse Rate [55-90 bpm] 70 bpm (04/02/23 11:10 AM) 68 bpm (04/02/23 8:37 AM) 68 bpm (04/02/23 7:00 AM) Blood Pressure [90-138/55-84 mm Hg] 134/74mm Hg (04/02/23 11:10 AM) 132/88mm Hg (04/02/23 8:37 AM) 132/88mm Hg (04/02/23 8:37 AM) Respiratory Rate [16-30 br/min] 18 br/min (04/02/23 11:10 AM) 18 br/min (04/02/23 7:00 AM) 18 br/min (04/02/23 4:22 AM) Temperature [96.8-100.4 DegF] 98.0 DegF (04/02/23 11:10 AM) 97.6 DegF (04/02/23 7:00 AM) 97.5 DegF (04/02/23 4:22 AM) Liters per Minute 3 L/min (03/27/23 8:52 PM) 2 L/min (03/27/23 4:27 PM) 2 L/min (03/27/23 3:45 PM) Mode of Delivery (Oxygen) Room air (04/02/23 11:10 AM) Room air (04/02/23 7:00 AM) CPAP (04/02/23 4:22 AM) Blood pressure sites Arm, right (04/02/23 11:10 AM) Arm, left (04/02/23 7:00 AM) Arm, left (04/02/23 4:22 AM) Temperature Route Oral (04/02/23 11:10 AM) Oral (04/02/23 7:00 AM) Axillary (04/02/23 4:22 AM) Dry Weight 99.4 kg (03/20/23 9:57 PM) 99.4 kg (03/20/23 7:59 PM) 99.4 kg (03/20/23 7:26 PM) Weight Obtained Via Bed scale (03/23/23 9:00 AM) Bed scale (03/21/23 7:00 AM) Social History Social History Type Response Smoking Status Never smoker entered on: 07/12/14 Sex Admission evaluation note * Farzad BARNARD, Jarad: SIGN Farzad BARNARD, Jarad: SIGN, MODIFY Farzad BARNARD, Jarad: MODIFY, PERFORM, MODIFY, MODIFY, SIGN, VERIFY Event Display: Admission Note Authored Date: Patient: MAURO VASQUEZ Age: 67 years Sex: Male : 1955 Associated Diagnoses: None Author: Fritz Grace NP Visit Information Chief Complaint: Septic shock. Accompanied by: family member(s). Admission Information Primary team: EGS Primary team attending: Dr. Panda Admitting SICU attending: Dr. Panda History of Present Illness Mauro Vasquez is a 67-year-old male with history of rectal cancer, GERD, CAD s/p DARRION in 2008, hypertension, HLD, WILIAM and [place] [facility] [place]stone pancreatitis for which he underwent a laparoscopic cholecystectomy that was complicated by a cystic duct leak requiring ERCP with CBD stent (02/13). Today he presented to the ED with a syncopal episode for which EMS was called an d found him hypotensive, tachycardic and altered. Per EMR, the patient reports that over the past 2days he has been experiencing fatigue, malaise and diarrhea. He reports that this morning he felt febrile however wanted to continue about his day, and at around noon time when he was coming up from the attic and then collapsed to the ground. EMS was called and was reportedly found to have systolicblood pressures in the low 80s. He presented to the emergency department and was activated as a resuscitation. On arrival to the ED he was febrile to 101.4 with persistent hypotension with systolics in the mid 80s. He was fluid resuscitated with a total of 3 L and started on IV antibiotics. Subsequently underwent a CT scan of the abdomen and pelvis which revealed a hepatic fossa hypodensity and known CBD stent. The patient remained hypotensive despite crystalloid resucitation, so Levophed was started. EGS and GI were consulted for concern of possible septic cholangitis. Upon review of the case GI took the patient for an emergent ERCP and removal of his CBD, and insertion of a 10 cm 10 [place] biliary stent from the [facility] past was found to be a leak from the cystic ductwhich was draining purulent material. A double J stent was also placed through the cystic duct withthe proximal end in what appeared to be a purulent collection in the gallbladder fossa. During the [employer] the patient received 1L of LR, and was weaned of Levophed. He was then transferred to STICU forclose hemodynamic monitoring. Past Medical History Problem list All Problems Arthralgia / SNOMED CT 77345069 / Confirmed Benign prostatic hyperplasia / SNOMED CT 903232576 / Confirmed CAD (coronary artery disease) / SNOMED CT 1711700525 / Confirmed 1992 angioplasty with atherectomy. 2004 angioplasty with stent Chronic kidney disease (CKD) / SNOMED CT 436530601 / Confirmed STAGE 2 Concentration deficit / SNOMED CT 393000949 / Confirmed Constipation, chronic / SNOMED CT 258009857 / Confirmed Depression, major, in remission / SNOMED CT 09959271 / Confirmed Gallstone pancreatitis / SNOMED CT 858598971 / Confirmed GERD (gastroesophageal reflux disease) / SNOMED CT 546925897 / Confirmed Hemoptysis / SNOMED CT 040058918 / Confirmed Hemorrhoids / SNOMED CT 594636147 / Confirmed WITH BLEEDING History of myocardial infarction / SNOMED CT 0750880369 / Confirmed History of rectal cancer / SNOMED CT 7936653358 / Confirmed Hyperlipidemia / SNOMED CT 45493887 / Confirmed Hypertension / SNOMED CT 2288673679 / Confirmed Hypogonadism male / SNOMED CT 31788380 / Confirmed Leg cramps / SNOMED CT 9670350854 / Confirmed Metatarsalgia of both feet / SNOMED CT 61264223 / Confirmed Nephrolithiasis / SNOMED CT 873848704 / Confirmed Obese class I / SNOMED CT 350999834798532 / Confirmed WILIAM on CPAP / SNOMED CT 523428960 / Confirmed Plantar fasciitis, left / SNOMED CT 230373672 / Confirmed Presence of implanted infusion pump / IMO [id number] / Confirmed S/P cholecystectomy / SNOMED CT 9471513472 / Confirmed Sleep apnea / SNOMED CT 277704707 / Confirmed Testosterone deficiency / SNOMED CT 805345322 / Confirmed Resolved: Obese class I / SNOMED CT 109420075595887 Problem added by Discern Expert Canceled: Dysthymia / SNOMED CT 527573097 Allergies Allergic Reactions (Selected) Severity Not Documented Contrast Dye- Hives. Current medications (Selected) Inpatient Medications Ordered Albuterol 0.5% inhalation marvin: 0.63 mg, 0.13 mL, Inhalation Solution, Neb, Every 4 hours, PRN for Wheezing/Shortness of Breath, Routine, 03/21/23 2:15:00 EDT Dilaudid Inj: 0.2 mg, Injection, IV Push Slowly, Every 4 hours, PRN for Pain , Severe, Routine, 03/21/23 2:13:00 EDT Enoxaparin Inj: 40 mg, Injection, Subcutaneous Injection, Daily, Routine, 03/21/23 9:00:00 EDT LR 1,000 mL: 1,000 mL, Infusion, IV Infusion, 1,000 mL, 100 mL/hr, Infuse over 10 hr, Continue until D/C'd Unless duration specified, Routine, 03/20/23 21:04:00 EDT, 2.15, m2 Levophed 4 mg / D5W 250 mL 4 m mL, Initial Dose 0.1 mcg/kg/min, Infusion, IV Infusion, Titrate for SBP: 90-130, Suggested infusion range 0.05 - 1.6 mcg/kg/min, Routine, 03/20/23 19:12:00 EDT, Titrate, mL 250 Protonix Inj: 40 mg, Injection, IV Push Slowly, Daily, Mix with 10 mL NaCl 0.9% and administer slowly over at least 2 minutes, Indicated for: Continuation from Home, Routine, 03/21/23 9:00:00 EDT Toradol Inj: 15 mg, Injection, IV Push Slowly, Every 6 hours for 5 days, Routine, 03/20/23 19:00:00EDT, Stop date 03/25/23 18:59:00 EDT Prescriptions Prescribed Metoprolol Succinate ER 50 mg oral tablet, extended release: 1 tablet, By Mouth, Daily, # 90 tablet, 3 Refills, Maintenance, 02/04/23 9:18:00 EDT, [facility] #[id number], 175.3, cm, 02/04/23 8:41:00 EDT, Height MiraLax oral powder for reconstitution: = 17 Gm, By Mouth, Daily, # 527 Gm, 6 Refills, Maintenance,11/25/18 9:19:35 EDT, 17 Gm By Mouth Daily atorvastatin 40 mg oral tablet: 1 tablet, By Mouth, Daily at bedtime, # 90 tablet, 3 Refills, Maintenance, 02/04/23 9:18:00 EDT, [facility] #[id number], 175.3, cm, 02/04/23 8:41:00 EDT, Height erythromycin 0.5% ophthalmic ointment: 0.5 inches, Eyes, Both, 4 times a day, # 4 Gm, 0 Refills, Maintenance, 10/22/22 10:20:00 EDT, Ophth Ointment, [facility] #[id number], Partial fill upon patient request if the prescription is for a schedule II opioid drug., 0.5 inches Eyes, Both 4... gemfibrozil 600 mg oral tablet: 1, tablet, By Mouth, 2 times a day, # 180 tablet, Refills 3, Tot. Refills 3, Maintenance, 02/04/23 9:18:00 EDT, Route to Pharmacy Electronically, [facility] #[id number], 175.3, cm, 02/04/23 8:41:00 EDT, Height losartan 50 mg oral tablet: 50 mg, 1, tablet, By Mouth, Daily, # 90 tablet, Refills 3, Tot. Refills3, Maintenance, 02/04/23 9:19:00 EDT, Route to Pharmacy Electronically, [facility] #[id number], Partial fill upon patient request if the prescription is for a schedule II opi... nitroglycerin 0.4 mg sublingual tablet: 1 tablet = 0.4 mg, Sublingual, Every 5 minutes, PRN Chest Pain, not to exceed 3 doses/15 min--if pain persists, seek medical attention Call 911, # 60 tablet, 11 Refills, Maintenance, 11/23/17 11:14:25 EDT pancreatin oral tablet: 2 tablet, By Mouth, 6 times a day, Take 2 tables before every meal and snack, # 360 tablet, 4 Refills, Maintenance, 09/10/17 10:56:11, Tablet pantoprazole 40 mg oral delayed release tablet: 1 tablet, By Mouth, Daily, # 90 tablet, 3 Refills, Maintenance, 02/04/23 9:18:00 EDT, 175.3, cm, 02/04/23 8:41:00 EDT, Height Documented Medications Documented AndroGel 40.5 mg (1.62%) transdermal gel: 2 pack/packet, Topically, Daily in AM, 0 Refills, Maintenance, 11/23/16 9:48:36, Gel Aspirin: = 81 mg, By Mouth, Daily, 0 Refills, Maintenance, 04/13/14 12:22:34 Fish Oil 1200 mg oral capsule: 1 capsule = 1,200 mg, By Mouth, Daily, 0 Refills, Maintenance, 04/13/14 12:24:12 Magnesium Carbonate: = 54 mg, By Mouth, Daily, 0 Refills, Maintenance, 10/16/22 14:44:00 EDT, Partial fill upon patient request if the prescription is for a schedule II opioid drug. Social History Social History Alcohol Details: Use: Current. Frequency: 1-2 times per month. Type: Beer. Employment/School Details: Status: Disabled. 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 Exercise Details: Self assessment: Fair condition. Home/Environment Details: Living situation: Home/Independent. Lives with: Children, Spouse. Other: - safe; 3children; 2 dogs. Nutrition/Health Details: Diet: Regular. Sexual Details: Sexual orientation: Heterosexual. Gender identity: Male. Substance Abuse Details: Use: Never. Tobacco Details: Never smoker Electronic Cigarette/Vaping Details: Electronic Cigarette Use: Never. . Review of Systems Constitutional: No weight loss, endorses fever weakness and fatigue. Allergy/Immune: Denies any Eczema or hives Eyes: No visual loss, blurred vision, double vision or yellow sclera ENT: No hearing loss, sneezing, congestion, runny nose or sore throat. Mouth hurt from ERCP Respiratory: No shortness of breath, or sputum production. Non productive cough noted. Cardiovascular: No chest pain, chest pressure or chest discomfort. No palpitations or pedal edema. Gastrointestinal: Endorsed anorexia and nausea. No nausea or vomiting. No abdominal pain or blood in stool. Genitourinary: No burning micturition. No urinary frequency or incontinence. Neurologic: No headache, dizziness, syncope, unilateral weakness, ataxia, numbness or tingling in the extremities. No change in bowel or bladder control. Musculoskeletal: No muscle pain, back pain, joint pain or stiffness. Hematologic/Lymphatics: No bleeding or bruising. No painful lymph nodes. Skin: No rash or itching. Endocrine: No reports of sweating. No cold or heat intolerance. No polyuria or polydipsia. Psychiatric: No depression or anxiety. Physical Examination Vitals Temperature 97.9 (02:26) Systolic Blood Pressure 153 (02:24) Diastolic Blood Pressure 82 (02:24) Pulse 88 (02:24) SpO2 94 (02:28) Respiratory Rate 33 (02:24) Drips LR @ 125 ml/hr Lines RIJ Central line L radial Arterial line PIVs Exam Constitutional: Alert, in no distress. Mental Status: Oriented to person, place and time. Head: Normocephalic. Eyes: Pupils are equal, round and reactive to light. Extraocular muscles intact. Ear, Nose and Throat: Oropharynx clear, mucous membranes moist. Complaining of mouth pain, no looseteeth. Neck: Supple, Full range of motion. Respiratory: Clear to auscultation. No wheezing, rales or rhonchi. Cardiovascular: S1 S2 regular. No murmurs, rubs or gallops. Gastrointestinal: Abdomen soft, mildy-tender, non-distended. Genitourinary: No costovertebral angle tenderness. Neurologic: Cranial nerves II-XII grossly intact. No focal neurological deficits. Flexor plantar response. Moves all extremities spontaneously. Sensation intact bilaterally. Skin: No rashes or lesions. No petechiae or purpura. Musculoskeletal: No cyanosis or clubbing. No gross deformities. Normal range of motion. Vital Signs Vitals : VITALS 03/21/2023 0:25 EDT Pain Intensity 0 03/20/2023 22:52 EDT Early Warning Score 4.00 03/20/2023 22:42 EDT Height 175 cm Weight 99.4 kg Body Mass Index 32.46 kg/m2 >HHI Body surface area 2.2 BSA Dewitt 2.15 Weight lb/oz 219 lb 2 oz Temperature 96.9 DegF Temperature Route Temporal Pulse Rate 74 bpm Respiratory Rate 28 br/min Systolic Blood Pressure 138 mm Hg Diastolic Blood Pressure 88 mm Hg H Blood pressure sites Arm, left Mean Arterial Pressure 105 mm Hg Oxygen Saturation 97 % Liters per Minute 2 L/min Mode of Delivery (Oxygen) Nasal cannula 03/20/2023 21:57 EDT Dry Weight 99.4 kg Pulse Rate 78 bpm Respiratory Rate 21 br/min Systolic Blood Pressure 125 mm Hg Diastolic Blood Pressure 75 mm Hg Blood pressure sites Arm, left Mean Arterial Pressure 92 mm Hg Pulse Pressure 50 mm Hg Oxygen Saturation 95 % Liters per Minute 2 L/min Mode of Delivery (Oxygen) Nasal cannula 03/20/2023 20:42 EDT Pulse Rate 84 bpm Respiratory Rate 24 br/min Systolic Blood Pressure 124 mm Hg Diastolic Blood Pressure 70 mm Hg Blood pressure sites Arm, left Oxygen Saturation 94 % Liters per Minute 2 L/min Mode of Delivery (Oxygen) Nasal cannula 03/20/2023 19:59 EDT Dry Weight 99.4 kg Pulse Rate 87 bpm Respiratory Rate 33 br/min H Systolic Blood Pressure 121 mm Hg Diastolic Blood Pressure 66 mm Hg Mean Arterial Pressure 84 mm Hg Pulse Pressure 55 mm Hg Oxygen Saturation 95 % Liters per Minute 2 L/min Mode of Delivery (Oxygen) Nasal cannula 03/20/2023 19:51 EDT Pulse Rate 96 bpm H Respiratory Rate 32 br/min H Systolic Blood Pressure 114 mm Hg Diastolic Blood Pressure 66 mm Hg Blood pressure sites Arm, left Pulse Pressure 48 mm Hg Oxygen Saturation 96 % Liters per Minute 2 L/min Mode of Delivery (Oxygen) Room air 03/20/2023 19:26 EDT Dry Weight 99.4 kg Pulse Rate 92 bpm H Respiratory Rate 33 br/min H Systolic Blood Pressure 108 mm Hg Diastolic Blood Pressure 66 mm Hg Blood pressure sites Arm, left Mean Arterial Pressure 80 mm Hg Pulse Pressure 42 mm Hg Oxygen Saturation 96 % Liters per Minute 2 L/min Mode of Delivery (Oxygen) Nasal cannula 03/20/2023 19:14 EDT Pulse Rate 91 bpm H Respiratory Rate 26 br/min Systolic Blood Pressure 130 mm Hg Diastolic Blood Pressure 71 mm Hg Blood pressure sites Arm, left Pulse Pressure 59 mm Hg Oxygen Saturation 95 % Liters per Minute 2 L/min Mode of Delivery (Oxygen) Nasal cannula 03/20/2023 19:10 EDT Pulse Rate 88 bpm Respiratory Rate 22 br/min Systolic Blood Pressure 141 mm Hg H Diastolic Blood Pressure 72 mm Hg Blood pressure sites Arm, left Pulse Pressure 69 mm Hg Oxygen Saturation 95 % Liters per Minute 2 L/min Mode of Delivery (Oxygen) Nasal cannula 03/20/2023 19:04 EDT Respiratory Rate 30 br/min Pain Intensity 0 03/20/2023 18:58 EDT Pulse Rate 91 bpm H Respiratory Rate 20 br/min Systolic Blood Pressure 128 mm Hg Diastolic Blood Pressure 73 mm Hg Blood pressure sites Arm, left Pulse Pressure 55 mm Hg Oxygen Saturation 95 % Liters per Minute 2 L/min Mode of Delivery (Oxygen) Nasal cannula 03/20/2023 18:48 EDT Dry Weight 99.4 kg Pulse Rate 90 bpm Respiratory Rate 28 br/min Systolic Blood Pressure 122 mm Hg Diastolic Blood Pressure 75 mm Hg Blood pressure sites Arm, left Mean Arterial Pressure 91 mm Hg Pulse Pressure 47 mm Hg Oxygen Saturation 95 % Liters per Minute 2 L/min Mode of Delivery (Oxygen) Nasal cannula 03/20/2023 18:39 EDT Temperature 100.2 DegF Temperature Route Rectal Pulse Rate 96 bpm H Respiratory Rate 26 br/min Systolic Blood Pressure 101 mm Hg Diastolic Blood Pressure 64 mm Hg Mean Arterial Pressure 76 mm Hg Pulse Pressure 37 mm Hg Oxygen Saturation 98 % Liters per Minute 2 L/min Mode of Delivery (Oxygen) Nasal cannula 03/20/2023 18:35 EDT Dry Weight 99.4 kg 03/20/2023 18:34 EDT Pain Intensity 0 03/20/2023 18:04 EDT Pulse Rate 105 bpm H Respiratory Rate 34 br/min H Systolic Blood Pressure 109 mm Hg Diastolic Blood Pressure 97 mm Hg H Blood pressure sites Arm, left Mean Arterial Pressure 101 mm Hg Pulse Pressure 12 mm Hg Oxygen Saturation 100 % Liters per Minute 2 L/min Mode of Delivery (Oxygen) Nasal cannula 03/20/2023 17:45 EDT Pulse Rate 110 bpm H Systolic Blood Pressure 119 mm Hg Diastolic Blood Pressure 71 mm Hg Blood pressure sites Arm, left Mean Arterial Pressure 87 mm Hg Pulse Pressure 48 mm Hg Oxygen Saturation 94 % Liters per Minute 2 L/min Mode of Delivery (Oxygen) Nasal cannula 03/20/2023 17:42 EDT Pulse Rate 111 bpm H Respiratory Rate 22 br/min Systolic Blood Pressure 119 mm Hg Diastolic Blood Pressure 79 mm Hg Blood pressure sites Arm, left Mean Arterial Pressure 92 mm Hg Pulse Pressure 40 mm Hg Oxygen Saturation 94 % Liters per Minute 2 L/min Mode of Delivery (Oxygen) Nasal cannula 03/20/2023 17:13 EDT Pulse Rate 112 bpm H Respiratory Rate 19 br/min Systolic Blood Pressure 88 mm Hg L Diastolic Blood Pressure 62 mm Hg Pulse Pressure 26 mm Hg Oxygen Saturation 100 % Liters per Minute 2 L/min Mode of Delivery (Oxygen) Nasal cannula 03/20/2023 17:08 EDT Pulse Rate 109 bpm H Respiratory Rate 19 br/min Systolic Blood Pressure 98 mm Hg Diastolic Blood Pressure 50 mm Hg L Pulse Pressure 48 mm Hg Oxygen Saturation 99 % Liters per Minute 2 L/min Mode of Delivery (Oxygen) Nasal cannula 03/20/2023 16:21 EDT Temperature 98.2 DegF Temperature Route Oral Pulse Rate 161 bpm H Respiratory Rate 31 br/min H Systolic Blood Pressure 77 mm Hg L Diastolic Blood Pressure 57 mm Hg Mean Arterial Pressure 64 mm Hg Pulse Pressure 20 mm Hg Oxygen Saturation 95 % Mode of Delivery (Oxygen) Room air . Weight : Weight lb/oz 03/20/2023 22:42 EDT Weight lb/oz 219 lb 2 oz . BMI : Body Mass Index 03/20/2023 22:42 EDT Body Mass Index 32.46 kg/m2 >HHI . Results Review 7 day results Labs & Documents Laboratory : LABORATORY 03/20/2023 16:47 EDT WBC 12.5 k/mm3 H RBC 5.20 m/mm3 Hgb 15.4 Gm/dL Hct 45.7 % MCV 87.9 femtoliters MCH 29.6 pg MCHC 33.7 g/dL Platelet Count 218 k/mm3 RDW-SD 40.0 femtoliters MPV 9.8 femtoliters Nucleated RBC (Automated) 0.0 #/100 WBC'S Abs. NRBC 0.0 k/mm3 Abs. Neut 11.8 k/mm3 H Abs. Lymph 0.2 k/mm3 L Abs. Summit 0.2 k/mm3 L Abs. Eo 0.1 k/mm3 Abs. Baso 0.0 k/mm3 Neut % 94.7 % H Lymph % 1.9 % L Summit % 1.6 % L Eos % 0.7 % Baso % 0.2 % Imm Gran 0.9 % Abs. Imm Gran 0.1 k/mm3 Sodium 138 mmol/L Potassium 3.5 mmol/L L Chloride 100 mmol/L Bicarbonate Level 19 mmol/L L Anion Gap 19 H Glucose Level 115 mg/dL H BUN 20 mg/dL Creatinine-Blood 1.6 mg/dL H Estimated GFR Creatinine 47 ML/MIN/1.73 M2 Calcium 9.1 mg/dL Magnesium 1.7 mg/dL Protein, Total 6.8 Gm/dL Albumin 3.5 Gm/dL AG Ratio 1.1 Alkaline Phosphatase 378 units/L H Lipase 17 units/L AST (SGOT) 464 units/L H ALT (SGPT) 422 units/L H Bilirubin, Total 1.5 mg/dL H Lactate 4.8 mmol/L H 03/20/2023 16:30 EDT Blood Type O Positive Antibody Screen Negative 03/20/2023 16:26 EDT pH Venous (POC) POC Cartridge 7.58 H pCO2 Venous (POC) POC Cartridge 19.8 mm Hg L pO2 Venous (POC) POC Cartridge 49 mm Hg H Est Bicarbonate (POC) POC Cartridge 18.4 mmol/L L % O2 Sat Venous (POC) POC Cartridge 91 Base Excess (POC) POC Cartridge NEGATIVE 4 Specimen Type - Blood Gas VENOUS Hemoglobin (POC) POC Cartridge 16.3 Gm/dL Hematocrit (POC) POC Cartridge 48 % Sodium (POC) POC Cartridge 135 mmol/L Potassium (POC) POC Cartridge 4.2 mmol/L Glucose (POC) POC Cartridge 121 H Ionized Calcium (POC) POC Cartridge 0.89 mmol/L C Impression and Plan Mauro Vasquez is a 67-year-old male with history of rectal cancer, GERD, CAD s/p DARRION in 2008, hypertension, HLD, WILIAM and [place] [facility] [place] for gallstone pancreatitis for which he underwent a laparoscopic cholecystectomy that was complicated by a cystic duct leak requiring ERCP with CBD stent (02/13). He presents from home after several days of anorexia, fevers and a syncopal epis odes. On arrival to the ED he was febrile to 101.4 hypotensive and tachycardic concerning for septic shock for which he was bolused 4L IVF, started on IV antibiotics and required levophed. He underwent a CT scan of the abdomen and pelvis which revealed a hepatic fossa hypodensity and known CBD stent. He is now s/p emergent ERCP and removal of his CBD, and insertion of a 10 cm 10 [place] biliary stent from the [facility] past was found to be a leak from the cystic duct which was draining purulent material. A double J stent was also placed through the cystic duct with the proximal end in what appeared to be a purulent collection in the gallbladder fossa. During the ERCP the patient received 1L of LR,and was weaned of Levophed. He was then transferred to STICU for close hemodynamic monitoring. Consults GI Neuro: Metabolic Encephalopathy - resolved GCS 15, CAM-neg, RASS 0 - Pain control: IV Toradol 15mg Q6H for a 5 day course, will not utilize Tylenol in the setting of transaminitis. IV Dilaudid 0.5 PRN for breakthrough pain - Can likely add oral multimodal regimen in the morning once cleared for oral meds - Maintain sleep wake cycle in ICU to avoid delirium Cardiovascular: Septic Shock - resolved PMHx CAD s/p DARRION 2004 PMHx of HLD, HTN on Losartan, Metoprolol, HCTZ, Atorvastatin, ASA - MAP > 65 mmHg - Hold home medications until clear for PO - ECG in ED w/o evidence of acute ischemic event - Continuous telemetry Pulmonary: WILIAM on APAP at home, PRN Albuterol at home - goal SpO2> 92% - if remains w/o nausea abdominal distention can resume home HS CPAP - PRN Albuterol for SOB - Encourage IS, deep cough and OOB as tolerated FEN/GI: Gallbladder fossa purulent collection w/o evidence of cholangitis S/p ERCP and removal of CBD stent, replaced with CHD stent and cystic duct stent (03/20) PSHx of gallstone pancreatitis for which he underwent a laparoscopic cholecystectomy that was complicated by a cystic duct leak requiring ERCP with CBD stent (02/13) PSHx of rectal cancer s/p resection PMHx of GERD - Diet: Strict NPO, will defer to EGS - Hold bowel regimen until taking PO, last PM on 03/21 - Repeat LFTs post procedure - IV Protonix, continuation from home med - GI recommendations post ERCP: -Diet: Ice chips and sips when mental status improves and advance diet as tolerated from our perspective -Further discussion with surgery regarding if additional IR drainage is needed to the fluid collection in the gallbladder fossa. If percutaneous access is obtained to this collection, we can always remove our plastic double-pigtail stent but at this juncture, we believe this is offering significant therapeutic benefit given the volume purulence expressed from the stent. -Continue antibiotics -Plan for repeat ERCP may depend on response and repeat imaging of the fluid collection -Return to ICU Renal: RAFAEL PMHX of BPH on Tamsulosin BUN/Cr on admission 20/1.6 (Creatinine clearance calculated at 65), baseline appears around 0.9 - IVF: LR @ 100 ml/hr - Condom cath for hourly I/O's - Patient requiring straight cath post ERCP, will BS if no void 6 hours post SC - Will restart home flomax when okay for PO meds - Daily basic metabolic panel Heme: PREM H/H 12/38 - Daily CBC with differential ID: Purulent collection in GB fossa WBC 15, temp in ICU 96.9 - Continue broad spectrum abx w/ Vancomycin and Zosyn - F/u Blood cx Endocrine: Hypogonadism on home topical testosterone - ICU insulin protocol - Can restart home testosterone equivalent with help from pharmacy MANDY AMARO Family/Social Katharina Vasquez () and is HCP was updated by surgical team PPX: - HOB >30 - GI ppx: Home Protonix - DVT ppx: Lovenox 40 QD Dispo: STICU for hemodynamic monitoring in the setting of Septic Shock Case discussed with SICU attending physician, Dr. Panda Please page Surgical ICU at #[phone] for questions or concerns * Farzad BARNARD, Jarad: PERFORM Event Display: Admission Note Authored Date: I have seen and evaluated this patient. I have discussed the case with the SICU team on the date ofservice documented above. The clinical course, labs, and radiological studies were reviewed by me and the findings on exam confirmed. I agree with the findings as well as the assessment and plan as delineated above with the following clarifications, modifications and additions: -67 M -Well known to the surgical service, admitted in septic shock secondary to cholangitis, complication of biliary stent sludge less likely obstruction. System Diagnoses and Plans: Neuro- GCS 15 Cardiovascular-Septic shock on pressors, responding well to volume resuscitation, pressors weaned. Pulmonary- Supplemental O2, will add IS. FEN/ GI- NPO for now, f/u GI recommendations. -ID- WBC - 12.5, on Vancomycin/ Zosyn. Hypothermia in the ED. At the time of service, this patient is critically ill due to the acute impairment of 1 or more vital organ systems such that there is a high probability of imminent or life-threatening deteriorationin the patient???s condition. Critical Care Time: 35 min (This represents the total time I personally spent evaluating, managing and providing care exclusive of time spent for separately billable procedures.) --- Jarad Panda MD [facility] Division of Trauma, Acute Care Surgery, and Surgical Critical Care RA EKG study * Event Display: EKG Authored Date: * Event Display: EKG Authored Date: * Event Display: ECG 12-Lead Authored Date: Please click on pdf link to open report * Event Display: ECG 12-Lead Authored Date: Ventricular Rate: 106 BPM Atrial Rate: 106 BPM P-R Interval: 146 ms QRS Duration: 84 ms Q-T Interval: 334 ms QTC Calculation(Bazett): 443 ms P Montrose: 25 degrees R Montrose: 71 degrees T Montrose: 7 degrees Sinus tachycardia Otherwise normal ECG When compared with ECG of 21-MAR-2023 18:38, ventricular rate has increased Confirmed by COOPER DAVIS MD ([id number]) on 03/23/2023 1:39:31 PM [place]: COPOER DAVIS MD * Event Display: ECG 12-Lead Authored Date: [id number] Please click on pdf link to open report * Event Display: ECG 12-Lead Authored Date: [id number] Ventricular Rate: 53 BPM Atrial Rate: 53 BPM P-R Interval: 160 ms QRS Duration: 86 ms Q-T Interval: 456 ms QTC Calculation(Bazett): 427 ms P Montrose: 29 degrees R Montrose: 90 degrees T Montrose: 24 degrees Sinus bradycardia with sinus arrhythmia Rightward axis Borderline ECG When compared with ECG of 21-MAR-2023 10:33, No significant change was found Confirmed by COOPER DAVIS MD ([id number]) on 03/23/2023 1:37:50 PM [place]: COOPER DAVIS MD * Event Display: ECG 12-Lead Authored Date: Please click on pdf link to open report * Event Display: ECG 12-Lead Authored Date: Ventricular Rate: 60 BPM Atrial Rate: 60 BPM P-R Interval: 172 ms QRS Duration: 86 ms Q-T Interval: 438 ms QTC Calculation(Bazett): 438 ms P Montrose: 35 degrees R Montrose: 93 degrees T Montrose: 37 degrees Normal sinus rhythm Rightward axis Borderline ECG When compared with ECG of 20-MAR-2023 18:26, No significant change was found Confirmed by COOPER DAVIS MD () on 03/23/2023 1:37:34 PM [place]: COOPER DAVIS MD Cardiology * Event Display: Cardiac Rhythm Strips Authored Date: * Event Display: Cardiac Rhythm Strips Authored Date: Hospital Progress note * Deandre Rosado RN: PERFORM, SIGN, VERIFY Event Display: Progress Note Hospital Authored Date: Patient: MAURO VASQUEZ Age: 67 years Sex: Male : 1955 Associated Diagnoses: None Author: Deandre Rosado RN Findings Problem Related to Alteration in Gastrointestinal : Alteration in Gastrointestinal Func/new 04/02/2023 9:00 EDT Alteration in GI status Related to Other: s/p ERCP with removal of stents and abscess Goals & Outcomes, Gastrointestinal Establish a regular pattern of elimination for pt, Nutritional intake is adequate for metabolic needs, Pt will achieve normal/improved fluid balance, Pt will have a bowel movement prior to discharge, Pt will maintain adequate GI function appropriate for pt, Ptwill maintain normal elimination patterns, Pt will resume/maintain adequate hemodynamic status, Pt w ill tolerate age appropriate diet prior to discharge Interventions, Gastrointestinal Assess/monitor abdomen for distention, tenderness, Assess/monitor abdominal girth & bowel function, Assess/monitor bowel pattern, bowel sounds, flatus, Assess/monitor number of bowel movements, Assess/monitor color, quantity, quality, consistency of stoo, Assess/monitor pt for nausea, vomiting, Assess/monitor intake & output, Assess if pt tolerating diet, DVT prophylaxis as ordered, Elevate HOB to facilitate lung expansion, prevent aspiration, Establish toileting schedule for patient, Taking PO: Encourage/monitor intake & swallowing ability, Teach Pt/caregiver diet & give copy of dietary instructions, Teach Pt/caregiver on bowel elimination int erventions, Teach Pt/caregiver re: importance of bowel regime, Teach Pt/caregiver re: nutritional intake & dietary restrict, Teach/encourage deep breath & cough exercises, Teach/encourage useof incentive spirometer Goals/Interventions, Gastrointestinal Yes Gastrointestinal, Problem Start 03/21/2023 6:30 Reviewed plan with, Gastrointestinal Patient Patient Progression, Gastrointestinal Pt progressing according to plan . Evaluation Pt is A/Ox4. VSS. Pt denies pain. Lungs are clear on room air. Pt reports a non- productive cough. Pt has +PP and no edema. +BSx4 quadrants. Abdomen is soft, round, distended, and non-tender. Pt denies N/V. Pt reports passing flatus. Pt is on a cardiac diet, tolerating well. Pt voids. Pt skin is intact, pain has red and tender spot on left wrist. Pt ambulating in room and hallway independently, tolerating well. Pt is resting in chair with call elizabeth in reach waiting for discharge ride. . Discharge Information Case Management Discharge Plan : Case Management Discharge Plan Data 03/31/2023 11:09 EDT Discharge Level of Care at Discharge Homehealth/VNA Discharge VNA/Hospice/Home Care [facility] [phone] Name of Agency #1 [facility] [phone] Agency Machine Specialist #1 Intake Service Categories #1 Physical Therapy, Penitentiary Service Comments #1 [facility] VNA will contact you to resume you VNA services. Please call their office with any questions. Pulmonary Rehab Discharge : Pulmonary Rehab Discharge Status 04/02/2023 4:36 EDT CPAP/BiPAP Mask Type Full CPAP/BiPAP Mask Size Medium 04/02/2023 1:34 EDT CPAP/BiPAP Mask Type Full CPAP/BiPAP Mask Size Medium 04/01/2023 22:35 EDT CPAP/BiPAP Mask Type Full CPAP/BiPAP Mask Size Medium 04/01/2023 3:30 EDT CPAP/BiPAP Mask Type Full CPAP/BiPAP Mask Size Medium 03/31/2023 23:15 EDT CPAP/BiPAP Mask Type Full CPAP/BiPAP Mask Size Medium 03/31/2023 3:54 EDT CPAP/BiPAP Mask Type Full CPAP/BiPAP Mask Size Medium 03/31/2023 1:21 EDT CPAP/BiPAP Mask Type Full CPAP/BiPAP Mask Size Medium 03/30/2023 21:47 EDT CPAP/BiPAP Mask Type Full CPAP/BiPAP Mask Size Medium 03/30/2023 12:23 EDT CPAP/BiPAP Mask Type Full CPAP/BiPAP Mask Size Medium 03/29/2023 23:00 EDT CPAP/BiPAP Mask Type Full CPAP/BiPAP Mask Size Medium 03/29/2023 3:49 EDT CPAP/BiPAP Mask Type Full CPAP/BiPAP Mask Size Medium 03/29/2023 1:19 EDT CPAP/BiPAP Mask Type Full CPAP/BiPAP Mask Size Medium 03/28/2023 4:53 EDT CPAP/BiPAP Mask Type Full CPAP/BiPAP Mask Size Medium 03/28/2023 0:29 EDT CPAP/BiPAP Mask Type Full CPAP/BiPAP Mask Size Medium * Aurelio WINN, Teresa Stout: PERFORM, SIGN, VERIFY Event Display: Progress Note Hospital Authored Date: Patient: MAURO VASQUEZ Age: 67 years Sex: Male : 1955 Associated Diagnoses: None Author: Teresa Carey RN Findings Problem Related to Alteration in Gastrointestinal : Alteration in Gastrointestinal Func/new 04/01/2023 23:00 EDT Alteration in GI status Related to Other: s/p ERCP with removal of stents and abscess Goals & Outcomes, Gastrointestinal Establish a regular pattern of elimination for pt, Nutritional intake is adequate for metabolic needs, Pt will achieve normal/improved fluid balance, Pt will have a bowel movement prior to discharge, Pt will maintain adequate GI function appropriate for pt, Ptwill maintain normal elimination patterns, Pt will resume/maintain adequate hemodynamic status, Pt w ill tolerate age appropriate diet prior to discharge Interventions, Gastrointestinal Assess/monitor abdomen for distention, tenderness, Assess/monitor abdominal girth & bowel function, Assess/monitor bowel pattern, bowel sounds, flatus, Assess/monitor number of bowel movements, Assess/monitor color, quantity, quality, consistency of stoo, Assess/monitor pt for nausea, vomiting, Assess/monitor effects of re-hydration, Assess/monitor intake &output, Assess if pt tolerating diet, DVT prophylaxis as ordered, Teach/encourage deep breath &cough exercises, Teach/encourage use of incentive spirometer . Nursing Data Gastrointestinal Data. : Gastrointestinal Data. 04/01/2023 23:48 EDT Gastrointestinal Symptoms Diarrhea Abdomen Soft, Tender, Round RUQ Tenderness To palpation Bowel Sounds LUQ Present Bowel Sounds RUQ Present Bowel Sounds LLQ Present Bowel Sounds RLQ Present Last Bowel Movement 04/01/2023 Stool color and description Soft formed, Green GI WNL except Normal Bowel Pattern Daily . Vital Signs : VITAL SIGNS SECTION 04/01/2023 19:38 EDT Temperature 97.8 DegF Temperature Route Oral Pulse Rate 83 bpm Respiratory Rate 18 br/min Systolic Blood Pressure 140 mm Hg H Diastolic Blood Pressure 75 mm Hg Blood pressure sites Arm, right Pulse Pressure 65 mm Hg Oxygen Saturation 100 % Mode of Delivery (Oxygen) Room air . Narrative/Incidental No acute events overnight. Pt is alert and oriented x 3. Lungs are CTA, On RA. Reports non productive cough. Encouraged to do IS, able to achieve 1000cc. Pt uses CPAP at night, tolerates well. Pedal pulses are palpable, no edema noted. Ambulates OOB independently in the hallway x 2. Voids CYU. Lateral aspect of the Left wrist is tender,hard and red, MD aware of it. Pt and spouse requested to repeat labs in the morning including albumin and protein, Notified MD. Plan of care explained to the pt and , agreed. . Evaluation P : Alteration in gastrointestinal function I : See interventions listed in care plan above. E: Pt denies any pain. Abdomen is soft and TTP LUQ, bowel sounds are positive. Denies nausea or vomiting. Pt does report belching and flatus. Pt endorsed having multiple episodes of watery stool during daytime. During this shift pt had had only one BM which is soft green stool. Progressing along plan of care.. * Maria C Pearson RN: PERFORM, SIGN, VERIFY Event Display: Progress Note Hospital Authored Date: [id number] Patient: MAURO VASQUEZ Age: 67 years Sex: Male : 1955 Associated Diagnoses: None Author: Lili WINN, Maria C Findings Problem Related to Alteration in Gastrointestinal : Alteration in Gastrointestinal Func/new 04/01/2023 15:51 EDT Alteration in GI status Related to Other: s/p ERCP with removal of stents Goals & Outcomes, Gastrointestinal Establish a regular pattern of elimination for pt, Nutritional intake is adequate for metabolic needs, Pt will achieve normal/improved fluid balance, Pt will have a bowel movement prior to discharge, Pt will maintain adequate GI function appropriate for pt, Ptwill maintain normal elimination patterns, Pt will resume/maintain adequate hemodynamic status, Pt w ill tolerate age appropriate diet prior to discharge Interventions, Gastrointestinal Assess/monitor abdomen for distention, tenderness, Assess/monitor abdominal girth & bowel function, Assess/monitor bowel pattern, bowel sounds, flatus, Assess/monitor number of bowel movements, Assess/monitor color, quantity, quality, consistency of stoo, Assess/monitor pt for nausea, vomiting, Assess/monitor effects of re-hydration, Assess/monitor intake &output, Assess if pt tolerating diet, DVT prophylaxis as ordered, Teach/encourage deep breath &cough exercises, Teach/encourage use of incentive spirometer Goals/Interventions, Gastrointestinal Yes Gastrointestinal, Problem Start 03/21/2023 6:30 Reviewed plan with, Gastrointestinal Patient Patient Progression, Gastrointestinal Pt progressing according to plan . Nursing Data Vital Signs : VITAL SIGNS SECTION 04/01/2023 11:00 EDT Temperature 98.2 DegF Temperature Route Oral Pulse Rate 72 bpm Respiratory Rate 19 br/min Systolic Blood Pressure 142 mm Hg H Diastolic Blood Pressure 80 mm Hg Blood pressure sites Arm, right Pulse Pressure 62 mm Hg Oxygen Saturation 95 % Mode of Delivery (Oxygen) Room air . Evaluation P: See Plan of Care I: See Plan of Care Evaluation: Patient alert and oriented x 4. VSS. Denies pain. Lungs are clear to auscultation bilaterally. Denies chest pain/SOB Demonstrates 1500 on incentive spirometer without difficulty. Denies numbness/tingling. + pedal pulses, + CMS, no edema noted in bilateral upper/lower extremities.. Abdomen is soft, round and non-tender with + bowel sounds x 4. + flatus. Tolerating cardiac diet. Denies n ausea/vomiting. Last bowel movement 04/01. Ambulates independently in room and around unit x 1. Voiding adequate amounts of clear yellow urine. Patient resting comfortably in bed with call elizabeth within reach. Bed in lowest locked position.. Discharge Information Case Management Discharge Plan : Case Management Discharge Plan Data 03/31/2023 11:09 EDT Discharge Level of Care at Discharge Homehealth/VNA Discharge VNA/Hospice/Home Care [facility] [phone] Name of Agency #1 [facility] [phone] Agency Machine Specialist #1 Intake Service Categories #1 Physical Therapy, Penitentiary Service Comments #1 [facility] VNA will contact you to resume you VNA services. Please call their office with any questions. Pulmonary Rehab Discharge : Pulmonary Rehab Discharge Status 04/01/2023 3:30 EDT CPAP/BiPAP Mask Type Full CPAP/BiPAP Mask Size Medium 03/31/2023 23:15 EDT CPAP/BiPAP Mask Type Full CPAP/BiPAP Mask Size Medium 03/31/2023 3:54 EDT CPAP/BiPAP Mask Type Full CPAP/BiPAP Mask Size Medium 03/31/2023 1:21 EDT CPAP/BiPAP Mask Type Full CPAP/BiPAP Mask Size Medium 03/30/2023 21:47 EDT CPAP/BiPAP Mask Type Full CPAP/BiPAP Mask Size Medium 03/30/2023 12:23 EDT CPAP/BiPAP Mask Type Full CPAP/BiPAP Mask Size Medium 03/29/2023 23:00 EDT CPAP/BiPAP Mask Type Full CPAP/BiPAP Mask Size Medium 03/29/2023 3:49 EDT CPAP/BiPAP Mask Type Full CPAP/BiPAP Mask Size Medium 03/29/2023 1:19 EDT CPAP/BiPAP Mask Type Full CPAP/BiPAP Mask Size Medium 03/28/2023 4:53 EDT CPAP/BiPAP Mask Type Full CPAP/BiPAP Mask Size Medium 03/28/2023 0:29 EDT CPAP/BiPAP Mask Type Full CPAP/BiPAP Mask Size Medium 03/27/2023 4:39 EDT CPAP/BiPAP Mask Type Full CPAP/BiPAP Mask Size Medium 03/27/2023 0:22 EDT CPAP/BiPAP Mask Type Full CPAP/BiPAP Mask Size Medium Consult note * Elina BARNARD, Quang: PERFORM Event Display: Consultation Note Authored Date: Patient: ??MAURO VASQUEZ ? Age:??67 Years?Sex:??Male?:??1955?? Referrring Provider Not on Staff, Referring MD Zoë Hernández DO Chief Complaint RUQ pain, SOB, fevers, rigors Reason for Consultation ?bile leak History of Present Illness Patient is a 67-year-old man with a history of rectal cancer status post colectomy and diverting loop ileostomy with reversal in 2013, GERD, CAD, HTN, HLD, BPH, WILIAM on CPAP and CKD was admitted for gallstone pancreatitis GERD.?? Pancreatitis had resolved and was planned for laparoscopic cholecystectomy.?? Had a cholecystectomy 02/12. Postoperatively there was evidence of bile in his JEREMI drain and concerns for bile leak.?? GI was consulted for further evaluation and patient underwent ERCP with Dr. Carlos on 02/13/2023.?? There isno definite bile leak seen.?? Patient had sphincterotomy and plastic stent placement plan for stentextraction in 6 to 8 weeks. Patient now presents with fevers, rigors and right upper quadrant pain. His labs are remarkable for leukocytosis WBC 12.5, dominant neutrophilia.?? Hypokalemia, RAFAEL CR 1.6from baseline 0.8.?? Lactate elevation 4.8.?? And LFT derangements with ALP 378 [161], AST 464 [38], ALT 422 [59], T. bili 1.5 [0.8]. CT imaging of the abdomen pelvis with increase in stranding and heterogenous attenuation of the gallbladder fossa compared to prior study concerning for either development of postoperative infection,hematoma, ongoing bile leak or a combination.??Also additional hypoattenuation within the hepatic parenchyma adjacent to the gallbladder fossa is new from prior study and concerning for early hepaticabscess. ?? Patient reports he has been having abdominal pain since around a week after his prior ERCP and has gradually progressed over the last few weeks. then over the last week has felt more unwell and developed fevers and intermittent rigors, feeling generally unwell. He feels his main issue is SOB, /unable to take a deep breath in. ?? Physical Exam Vitals & Measurements T:??100.2?F?? TMIN:??98.2?F?? TMAX:??100.2?F?? HR:??78??(Peripheral)?? RR:??21?? BP:??125/75?? SpO2:??95%?? General:??patient looks a little lethargic, diaphoretic, HEENT:??JULISSA, mucus membranes coal drier operator side, oropharynx benign, no palpable adenopathy. cap refill time 4 seconds?? Respiratory:??normal work of breathing, equal air entry bilaterally, breath sounds vesicular. No wheezes, rhonchi or crepitations Cardiovascular:??Normal rate, regular rhythm, no murmurs rubs of gallops on auscultation GI/Abdomen:??Normal active bowel sounds, soft, very tender in right upper quadrant. Extremities:??Moving extremities,. No peripheral edema, lower limbs are warm and well perfused, ??DP and PT pulses palpable bilaterally. Skin:??No jaundice, no ecchymoses Neurologic:??Alert & Oriented, no obvious focal neurological deficit Psychiatric:??Mood and affect appropriate Assessment/Plan Patient is a 67yr old man with recent cholecystectomy 02/12 complicated by bile leak, s/p ERCP stentplacement 02/13 , presenting with RUQ pains, fevers rigors and transaminitis and leukocytosis. Imaging suggesting possible abscess, post op infection or continuing bile leak or combo. His bilirubin isnot significantly elevated at this time but presentation is concerning for cholangitis, currently requiring pressor support ?? - keep NPO, will take emergently for ERCP this evening with view to stent removal ?? This note was typed using Atlas[employer] dictation software. Occasionally, typing errors may occur. Please contact me on??[place] if anything requires further clarification. Patient discussed with attending physician, ?? Quang Antoine MD Gastroenterology Fellow ??PGY 4?? Problem List/Past Medical History Ongoing Arthralgia Benign prostatic hyperplasia CAD (coronary artery disease) Chronic kidney disease (CKD) Concentration deficit Constipation, chronic Depression, major, in remission Gallstone pancreatitis GERD (gastroesophageal reflux disease) Hemoptysis Hemorrhoids History of myocardial infarction History of rectal cancer Hyperlipidemia Hypertension Hypogonadism male Leg cramps Metatarsalgia of both feet Nephrolithiasis WILIAM on CPAP Plantar fasciitis, left S/P cholecystectomy Sleep apnea Testosterone deficiency Procedure/Surgical History ???Colonoscopy (12/09/2016)???Sigmoidoscopy (02/20/2015)???CT of abdomen and pelvis (03/15/2014)???Colonoscopy (11/06/2007)???Ultrasound (11/26/2006)???Endoscopy of GI tract (10/01/2006)???Angioplasty balloon catheter???Cholecystectomy???Lithotripsy???Partial colectomy Medications Inpatient Levophed 4 mg / D5W 250 mL 4 mg, 4 mg= 250 mL, IV Infusion LR 1,000 mL, 1000 mL, IV Infusion Toradol Inj, 15 mg= 0.5 mL, IV Push Slowly, Every 6 hours Home AndroGel 40.5 mg (1.62%) transdermal gel, [...] Mouth, 2 times a day, 3 refills losartan 50 mg oral tablet, [...] 1 tablet, By Mouth, Daily, 3 refills Allergies Contrast Dye??(hives) Social History Alcohol Use: Current. Frequency: 1-2 times per month. Type: Beer. Electronic Cigarette/Vaping Electronic Cigarette Use: Never. Employment/School Status: Disabled. 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 Exercise Self assessment: Fair condition. Home/Environment Living [...] Mother, Father, Sister, Brother and Other. * Lavelle Colindres MD, Deny Philip: PERFORM Event Display: Consultation Note Authored Date: Attending Attestation:??I have seen and evaluated this patient. ??I have discussed the case and itsmanagement with the fellow and agree with the findings and plan as documented in the fellow???s note.?? Patient seen at the bedside with his family in the emergency room around 2129. Patient is toxic appearing, cool to touch and tachypneic. ??Requiring Levophed. ??He has gotten 4 Lof volume resuscitation with some improvement in his sepsis physiology. Still needing levophed ?? Right upper quadrant tenderness. ?? suspect cholangitis with??possible??relationship between biliary infection and GB fossa based on CT.? Discussed with surgery attending.?? Proceeding with emergent ERCP for source control. ??Suspect infected biliary system and possibility of persistence of cystic duct leak contributing to possible infection in gallbladder fossa. ??Plan for ERCP to remove prior biliary stent with likely stent replacement in this context ?? Discussed with pt and family who request we proceed ?? Deny Valderrama MD * Ryan Pedroza MD: PERFORM, MODIFY Event Display: Consultation Note Authored Date: Patient: ??MAURO VASQUEZ ? Age:??67 Years?Sex:??Male?:??1955?? Chief Complaint/Reason for Consult Postsurgical abscess History of Present Illness Mauro Vasquez is a 67-year-old male??with??history of??GERD, CAD, hypertension, and??recent admission[place] [facility]for gallstone pancreatitis for which he underwent a laparoscopic cholecystectomy thatwas complicated by a cystic duct leak requiring ERCP with CBD stent (02/13)??who is presenting to the ED??with??a syncopal episode??for whom surgery is being consulted for evaluation of??a postsurgical abscess/infection resulting in sepsis. ??Patient reports that over the past 2 days he has been experiencing fatigue, malaise??and diarrhea.?He reports that this morning??he felt??febrile??however??wanted to continue about his day, and at around noon time when??he was coming up from the attic??and then collapsed to the ground.?? EMS??was called and was reportedly found to have systolic blood pressures in the low 80s.?? He presented to the emergency department??and was activated as a resuscitation.?? On arrival to the ED??he was febrile to 101.4??with persistent??hypotension with systolics??in the mid 80s.?? He was fluid resuscitated with a total of 3 L??and started on IV antibiotics.?Subsequently underwent a CT scan of the abdomen and pelvis??which revealed??a??hepatic fossa??hypodensity and known??CBD stent. ??Surgery was consulted for further evaluation. ?? of note??patient was last seen in the general surgery office on 02/23.?? He was seen in close follow-up??after his operation as he was discharged from the hospital??with a drain??within??the hepaticfossa due to??a cystic duct leak.?? Reportedly intraoperatively??the cystic duct??was unable to be clipped,??and therefore??drain was placed and subsequently underwent an ERCP with sphincterotomy andCBD placement on 02/13. ??At his follow-up??on 02/23??we will drain??had minimal output and thus was removed. ??Patient reports??he has??not had an appointment with GI to discuss removal??of CBD stent yet. Review of Systems Constitutional:??No weight loss, fever, chills, weakness or fatigue. Respiratory: No SOB, cough, or dyspnea Cardiovascular: No chest pain, flutters or palpitations?? Gastrointestinal:??No N/V. ??Positive for??abdominal pain, nausea vomiting,??diarrhea. Genitourinary:??No frequency or burning with urination. Neurologic:??No CRUZ, dizziness, syncope,??no changes in motor or sensory function.??No change in bowel or bladder control. Skin:??No rashes, bruises??or itching. Endocrine:??No heat or cold intolerance. Psychiatric:??No depression or anxiety. Physical Exam Vitals & Measurements T:??100.2?F?? HR:??92??(Peripheral)?? RR:??33?? BP:??108/66?? SpO2:??96%?? Constitutional: Resting in bed, eyes closed??body warm.?? Speaking in short sentences HEENT: Normocephalic, atraumatic, PERRL,??moist mucous membranes. Respiratory: Normal WOB, CTA b/l. Cardiovascular: Audible S1 S2 regular. No m/r/g Abdominal: Protuberant??however nondistended.?? Mildly tender to palpation throughout. ??Voluntary guarding. ??No rebound. Neurologic: Cranial nerves II-XII intact. Motor and sensation grossly intact b/l. Extremities: No wounds, bruises or injuries. No gross deformities. ROM normal. Skin: No rashes or lesions. No petechiae or purpura.?? Assessment/Plan Mauro Vasquez is a 67M ??with??history of??GERD, CAD, hypertension, and??recent admission[place] [facility]for gallstone pancreatitis for which he underwent a laparoscopic cholecystectomy that was complicated by a cystic duct leak requiring ERCP with CBD stent (02/13)??who is presenting to the ED??with??a syncopal episode??for whom surgery is being consulted for evaluation of??a postsurgical abscess/infection resulting in sepsis. ??Patient reports 2-day history??of subjective fevers, malaise??and persistent??abdominal pain.?? On exam??he is tachycardic and hypotensive??despite??4 L of fluid resuscitation.?? He is currently on vasopressors. ??His abdomen??is diffusely tender to palpation, however not peritonitic. ??Laboratory work-up??is significant for a white count of 12.5 with left shift??of 94%, lactate of 4.8, and elevated LFTS including T. bili of 1.5??and AST/ALT of??464/422.?? His CT scan??shows evidence of a hypodensity within the??gallbladder fossa, however not rim-enhancing and not overtly concerning at this time.?? This patient??has CBD stent,??it is possible that he has??cholangitis??from the stent.?? Patient will require??inpatient admission??for??further resuscitation, IV antibiotics,??and GI consultation. ?? Recommendations ??? GI consultation for??stent evaluation or removal ?NPO/IVF ?Broad-spectrum antibiotics ??? continue IV??Vanco Zosyn??per ED ?Will require admission, likely??SICU??if unable to wean pressors. ??? Wean pressors as able ?? Discussed with Dr. Panda S [id number] Problem List/Past Medical History Ongoing Benign prostatic hyperplasia CAD (coronary artery disease) Chronic kidney disease (CKD) GERD (gastroesophageal reflux disease) Hemorrhoids History of myocardial infarction History of rectal cancer Hyperlipidemia Hypertension Nephrolithiasis WILIAM on CPAP Sleep apnea Procedure/Surgical History Colonoscopy: 12/09/16 Sigmoidoscopy: 02/20/15 CT of abdomen and pelvis: 03/15/14 Colonoscopy: 11/06/07 Ultrasound: 11/26/06 Endoscopy of GI tract: 10/01/06 Partial colectomy Cholecystectomy Angioplasty balloon catheter Lithotripsy Home Medications Aspirin: 81 mg, By Mouth, Daily Atorvastatin: 1 tablet, By Mouth, Daily at bedtime Erythromycin Ophthalmic: 0.5 inches, Eyes, Both, 4 times a day Gemfibrozil: 1 tablet, By Mouth, 2 times a day Losartan: 50 mg = 1 tablet, By Mouth, Daily Magnesium Carbonate: 54 mg, By Mouth, Daily Metoprolol: 1 tablet, By Mouth, Daily Nitroglycerin: 0.4 mg = 1 tablet, Sublingual, Every 5 minutes, PRN (Chest Pain), not to exceed 3 doses/15 min--if pain persists, seek medical attentionCall 911 [place]-3 Polyunsaturated Fatty Acids: 1,200 mg = 1 capsule, By Mouth, Daily Pancreatin: 2 tablet, By Mouth, 6 times a day, Take 2 tables before every meal and snack Pantoprazole: 1 tablet, By Mouth, Daily Polyethylene Glycol 3350: 17 Gm, By Mouth, Daily Testosterone: 2 pack/packet, Topically, Daily in AM Allergies Contrast Dye??(hives) Social History Alcohol Use: Current. Frequency: 1-2 times per month. Type: Beer. Electronic Cigarette/Vaping Electronic Cigarette Use: Never. Employment/School Status: Disabled. 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 Exercise Self assessment: Fair condition. Home/Environment Living situation: Home/Independent. Lives with: Children, Spouse. Other: - safe; 3 children; 2 dogs. Nutrition/Health Diet: Regular. Sexual Sexual orientation: Heterosexual. Gender identity: Male. Substance Abuse Use: Never. Tobacco Never smoker Family History Mother (piotr, ): CAD - Coronary artery disease; Hyperlipidemia; Hypertension Brother: CAD - Coronary artery disease; Hyperlipidemia; Hypertension Sister (Alyssa, ): Pancreatic cancer Radiology RESULT: CT Abd/Pelvis W/ IV Contrast Only CT Abdomen and Pelvis W/O Contrast, CT Abd/Pelvis W/ IV Contrast Only? Reason: Other:; septic shock, hx nephrolithiasis, eval for stone; Clinical Question(s): Calculus ?? TECHNIQUE: Spiral CT through the abdomen and pelvis without IV contrast formatted in 3 planes. Noncontrast acquisition was immediately followed by CT of the abdomen and pelvis with IV contrast after administration of 100 cc Omnipaque 300 IV contrast. This study was performed without oral contrast. W eight-based protocol using automatic tube modulation was used to optimize exposure parameters.? CTDIvol Body: 18.60 mGy, ??DLP Body: 1096 mGy*cm. ?(accession [id number]),? CTDIvol Body: 18.50 mGy, ??DLP Body: 1201 mGy*cm. ?(accession [id number]) ?? COMPARISON: February 17, 2023. ?? FINDINGS:? Hydrometer Finisher View Findings, Lines and Tubes: None. ?? Visualized Chest: Atelectasis at the lung bases without pleural or pericardial effusion. ?? Diaphragm: Unremarkable noncontrasted appearance of the partially imaged liver. ?? Liver: Hypoattenuation hepatic parenchyma compatible hepatic steatosis. 2 small focal areas of low attenuation noted adjacent to the gallbladder fossa likely within the hepatic parenchyma (series 202image 48, 45). These measure up to approximately 1.7 cm each. ?? Gallbladder: Surgically absent. There is increased stranding and mixed attenuation within the gallbladder fossa, new from the prior study, for example measuring up to 4.6 x 2.2 cm directly adjacent to the cholecystectomy clips (series 201 image 26), with heterogeneous attenuation measuring up to alex roximately 4.2 x 3.0 cm more inferiorly (series 201 image 36). This is contiguous with stranding that extends anteriorly along the right upper quadrant to the level of the peritoneal surface (series 2 image 29). ?? Bile ducts: Trace pneumobilia as expected in the setting of a well-positioned biliary stent. No significant ductal dilatation. ?? Spleen: Normal. ?? Pancreas: Normal. ?? Adrenal glands: Normal. ?? Kidneys and ureters: No hydronephrosis, stones, or noncontrast evidence of suspicious masses. ?? Bladder: Normal. ?? Reproductive organs: Mild prostatomegaly. ?? Stomach, small bowel, and large bowel: Stomach is unremarkable. Small bowel loops are normal in course and caliber without evidence of obstruction. Small bowel anastomosis is noted in the right midabdomen. Rectosigmoid anastomosis is noted as well with adjacent scarring but no complication. ?? Appendix: Normal. ?? Peritoneum and retroperitoneum: No ascites or pneumoperitoneum. No omental or mesenteric lesions. ?? Lymph nodes: No enlarged lymph nodes. ?? Blood vessels: Mild atherosclerotic calcification of the aorta. No evidence of venous thrombosis. ?? Abdominal and pelvic wall: Small bilateral fat-containing indirect inguinal hernias. ?? Bones: No acute abnormality. Mild degenerative changes throughout the spine. ?? IMPRESSION:? Interval increase in stranding and heterogeneous attenuation in the gallbladder fossa when comparedwith the prior postoperative study, which may be due to developing postoperative infection, hematoma, ongoing bile leak, or some combination. Hypoattenuation within the hepatic parenchyma adjacent tothe gallbladder fossa is new from the prior study as well and concerning for early changes of hepatic abscess. Lab Results Labs Last 24 Hours BLOOD COUNT & DIFF ? Event Name?? Event Result?? Date/Time?? WBC 12.5 k/mm3??High 03/20/23 16:47:00 RBC 5.2 m/mm3 03/20/23 16:47:00 Hgb 15.4 Gm/dL 03/20/23 16:47:00 Hct 45.7 % 03/20/23 16:47:00 MCV 87.9 femtoliters 03/20/23 16:47:00 MCH 29.6 pg 03/20/23 16:47:00 MCHC 33.7 g/dL 03/20/23 16:47:00 Platelet Count 218 k/mm3 03/20/23 16:47:00 MPV 9.8 femtoliters 03/20/23 16:47:00 Nucleated RBC (Automated) 0 #/100 WBC'S 03/20/23 16:47:00 ? CHEM GENERAL ? Event Name?? Event Result?? Date/Time?? Sodium 138 mmol/L 03/20/23 16:47:00 Chloride 100 mmol/L 03/20/23 16:47:00 Bicarbonate Level 19 mmol/L??Low 03/20/23 16:47:00 Anion Gap 19??High 03/20/23 16:47:00 Glucose Level 115 mg/dL??High 03/20/23 16:47:00 BUN 20 mg/dL 03/20/23 16:47:00 Creatinine-Blood 1.6 mg/dL??High 03/20/23 16:47:00 Magnesium 1.7 mg/dL 03/20/23 16:47:00 Alkaline Phosphatase 378 units/L??High 03/20/23 16:47:00 Lipase 17 units/L 03/20/23 16:47:00 AST (SGOT) 464 units/L??High 03/20/23 16:47:00 ALT (SGPT) 422 units/L??High 03/20/23 16:47:00 Bilirubin, Total 1.5 mg/dL??High 03/20/23 16:47:00 ? * Farzad BARNARD, Jarad: PERFORM Event Display: Consultation Note Authored Date: I have seen and evaluated this patient on the above documented date. I have discussed the case and its management with the resident team and APPs as documented in the progress note. ?? Seen as an ACS consultation to the ED. ?? See the STICU admission note for a detailed addendum. Case d/w Dr. Valderrama of GI ? RA Note * Batool Pantoja RN: PERFORM Event Display: Discharge/Transfer Note Hospital Authored Date: [id number] Nursing Discharge Note Entered On: 04/02/2023 16:13 EDT Performed On: 04/02/2023 16:12 EDT by Batool Pantoja RN Nursing Discharge Note 2 Discharge Time : 04/02/2023 16:00 EDT Discharge Level of Care at Discharge : Homehealth/VNA Discharge VNA/Hospice/Home Care(v001) : [facility] [phone] Patient Left Unit Via : Wheelchair Patient Accompanied Off Unit with : Responsible adult DC Instructions Provided & Signed by Pt : Yes Patient Understands D/C Instructions : Yes Patient Instructions Discharge Signed : Yes Discharge Comments : IV dc'd with the tip intact Did Pt have Specialty Bed or Wound Vac : No Batool Pantoja RN - 04/02/2023 16:12 EDT * Batool Pantoja RN: PERFORM Event Display: Patient Education/Instruction Authored Date: [id number] Inpatient Adult Discharge Instructions [address] [id number] Name: MAURO VASQUEZ : 1955 Visit: 03/21/2023 01:36:00 Current Date: 04/02/2023 11:23 Account: [id number] Inpatient Adult Discharge Instructions We would like [...] and their families. Surveys are administered by [employer]. ?? If further treatment with your primary care physician or another doctor is recommended, it is important for you to keep the appointment. Call your primary care physician or return to the Emergency Department immediately if your condition worsens, fails to improve, or new symptoms develop. If you need to find a doctor, you can call [facility] Link for a referral at [phone] or toll free at [phone]) or log in to [email or web address].. ?? [facility], in keeping with [facility] guidance, no longer requires face masks [...] a health care alex of your choosing. [facility] is a website that allows you to securely view your medical information including your hospital discharge summary, office visit summaries, medications and follow-up visits. You can also request appointments, renew medications, and request access to your medical information using a health care alex of your choosing, or just ask a question. You can enroll at [email or web address] or register during your next office visit. You have been discharged from [facility], Patient Care Unit: S3. If you have any questions regarding these instructions after you leave, please call us and we will be happy to assist you. [facility] Your Care Team Attending Physician Farzad BARNARD, Jarad Consulting Providers Nallely BARNARD, Krystal Kenyon MD, Prateek Casarez Discharging Providers Donovan VIDALES, Maureen Alexander Reason for Admission SEPTIC SHOCK TRANSAMINITIS BILIARY LEAK VS CHOLAN Your Diagnosis Cholangitis Tests Performed Below is a partial list of the tests performed during your hospitalization. You may have had other tests and procedures not included in this list. Please discuss all test results with your provider. ABG POC CARTRIDGE Acetaminophen Level Albumin Level Alk Phos ALT AST BASE EXCESS POC CARTRIDGE Bilirubin Total Bilirubin Total + Direct BUN CALCIUM IONIZED POC CART CBC w/ Differential CK Total Only Comprehensive Metabolic Panel Creatinine Electrolytes Glucose Level GLUCOSE POC GLUCOSE POC CARTRIDGE HEMATOCRIT POC CARTRIDGE HEMOGLOBIN POC CARTRIDGE HOLD CONTRERAS TUBE INR Ionized Calcium Lactate Level Lactic Acid Level Lipase Lytes Magnesium Level Phosphorus Level POTASSIUM POC CARTRIDGE PTT Respiratory Pathogen PCR with COVID-19 SGOT SGPT SODIUM POC CARTRIDGE Troponin T, High Sensitivity Type and Screen Vancomycin Trough VBG POC CARTRIDGE CT Abd/Pelvis W/ IV + Oral Contrast CT Abd/Pelvis W/ IV Contrast Only CT Abdomen and Pelvis W/O Contrast CXR Portable Portable Chest XR C-Arm > 1 Hour XR Chest Portable XR ERCP Both Ducts Primary Care Provider Magaly BARNARD, Min Blackman Advance Directive Health Care Proxy on File Yes - Health Care Proxy Discharge Vitals Temperature: 98 DegF Weight: 103.4 kg Pulse Rate: 70 bpm ?? Respiratory Rate: 18 br/min ?? Systolic Blood Pressure: 134 mm Hg ?? Diastolic Blood Pressure: 74 mm Hg ?? Oxygen Saturation: 97 % ?? Studies Pending All tests and labs ordered during this hospital stay have been completed unless listed below. Please discuss all pending results with your provider listed above in these instructions. ?? COVID-19 (2019 Novel Coronavirus) PCR What to do next Instructions From Your Doctor ??Please take medications as prescribed and do not drive while on narcotic medications. ?? If you have any questions, please call the surgery office at . ?? Please call your Primary Care Provider within 1 week for post hospital follow up and review of yourmedications. ? Activity Instructions ?? -Increase activity as tolerated ?? When to call your healthcare provider: ?? Call your healthcare provider if you have any of the below: Fever of 100.4??F ( 38??C) or higher, or Chills Persistent Nausea or Vomiting Redness or skin changes of the abdomen Persistent abdomen pain not relieved with pain medications Prolonged inability to pass stool or gas, persistent food intolerance Discharge Orders Scheduled Follow-Up Appointments Wednesday 1:00 PM EST ?? With: Prateek Kenyon MD Where: [facility] [address] [place] [address]- Status: Pending Wednesday 2:30 PM EST ?? With: Magaly BARNARD, Min Blackman Where: [facility] [address] [place] [address]- Status: Pending Wednesday 2:45 PM EST ?? With: Sina Carlos MD Where: [facility] [address] [place] [address]- Status: Pending Discharge Medications MAURO VASQUEZ :1955 Visit Date:03/21/2023 Medications: Please continue your medications until treatment is completed or stopped by your provider. Medications not listed below should be discontinued. Discuss any questions related to medications with your provider. What How Much When Instructions Next Dose New Amoxicillin-Clavulanate (Augmentin 875 mg-125 mg oraltablet) 1 tab(s) Oral Every 8 hours Duration: 14 Days Pickup at [place] [address] 04/02 3PM New Cetirizine (ZyrTEC 10 mg oral tablet) See instructions 1 tablet By Mouth [address] scan ?? Pickup at [facility] [address] New MethylPREDNISolone (Medrol 32 mg oral tablet) See instructions take 32 mg by mouth [address] scan, then take another 32 mg by mouth 2 hours prior to CTscan. ?? Pickup at [facility] [address] scan New Saw [place] (saw palmetto 320 mg with phytosterols oral capsule) 1 capsule Oral Twice a day Pickup at [place] [address] 04/02 PM Unchanged Aspirin 81 Milligram Oral Daily 04/03 AM Unchanged Atorvastatin (atorvastatin 40 mg oral tablet) 1 tab(s) Oral Daily at Bedtime 04/02PM Unchanged Gemfibrozil (gemfibrozil 600 mg oral tablet) 1 tab(s) Oral Twice a day 04/02 PM Unchanged Losartan (losartan 50 mg oral tablet) 1 tab(s) Oral Daily Duration: 90 Days 10 AM Unchanged Metoprolol (Metoprolol Succinate ER 50 mg oral tablet, extended release) 1 tab(s) Oral Daily 04/03 AM Unchanged Nitroglycerin (nitroglycerin 0.4 mg sublingual tablet) 1 tab(s) Sublingual Every 5 minutes as needed for Chest Pain not to exceed 3 doses/ 15 min--if pain persists, seek medical attention Call 911 ?? Unchanged Pantoprazole (pantoprazole 40 mg oral delayed release tablet) 1 tab(s) Oral Daily 04/03 AM Unchanged Testosterone (AndroGel 40.5 mg (1.62%) transdermal gel) 2 pack/packet Topically Daily in the morning 04/03 AM Pharmacy Information [facility]: [address], [place] [id number] [phone] ?? What How Much When Comments Stop Taking Erythromycin Ophthalmic (erythromycin 0.5% ophthalmic ointment) 0.5 Inch Both eyes 4 times a day Stop Taking Magnesium Carbonate 54 Milligram Oral Daily Stop Taking [place]-3 Polyunsaturated Fatty Acids (Fish Oil 1200 mg oral capsule) 1 capsule Oral Daily Stop Taking Pancreatin (pancreatin oral tablet) 2 tab(s) Oral 6 times a day Take 2 tables before every meal and snack ?? Stop Taking Polyethylene Glycol 3350 (MiraLax oral powder for reconstitution) 17 gram Oral Daily Test Results Below is a partial list of the most recent Laboratory test results done prior to this discharge. You may have had other tests and procedures not included in this list. Please discuss all test resultswith your provider. ABG POC CARTRIDGE (03/22/2023) ???pH (POC) POC Cartridge - 7.43???pCO2 (POC) POC Cartridge - 28.1 mm Hg???pO2 (POC) POC Cartridge - 100 mm Hg???Estimated Bicarbonate (POC) POC Cart - 18.8 mmol/L???% O2 Sat Arterial (POC) POC Cartridge - 98 %???Specimen Type - Blood Gas - ARTERIAL Acetaminophen Level (03/20/2023) ???Acetaminophen Level - 5 mg/L Albumin Level (03/23/2023) ???Albumin - 2.5 Gm/dL Alk Phos (03/31/2023) ???Alkaline Phosphatase - 397 units/L ALT (03/31/2023) ???ALT (SGPT) - 151 units/L AST (03/31/2023) ???AST (SGOT) - 59 units/L BASE EXCESS POC CARTRIDGE (03/22/2023) ???Base Excess (POC) POC Cartridge - NEGATIVE 5 Bilirubin Total (03/23/2023) ???Bilirubin, Total - 1.1 mg/dL Bilirubin Total + Direct (03/31/2023) ???Bilirubin, Total - 0.7 mg/dL???Bilirubin, Direct - 0.4 mg/dL???Bilirubin, Indirect - 0.3 mg/dL BUN (03/31/2023) ???BUN - 15 mg/dL CALCIUM IONIZED POC CART (03/22/2023) ???Ionized Calcium (POC) POC Cartridge - 1.14 mmol/L CBC w/ Differential (03/31/2023) ???WBC - 8.8 k/mm3???RBC - 4.24 m/mm3???Hgb - 12.5 Gm/dL???Hct - 38.8 %???MCV - 91.5 femtoliters???MCH - 29.5 pg???MCHC - 32.2 g/dL???Platelet Count - 273 k/mm3???RDW-SD - 46.4 femtoliters???MPV - 9.7 femtoliters???Nucleated RBC (Automated) - 0.0 #/100 WBC'S???Abs. NRBC - 0.0 k/mm3???Abs. Neut - 5.8 k/mm3???Abs. Lymph - 2.0 k/mm3???Abs. Summit - 0.7 k/mm3???Abs. Eo - 0.1 k/mm3???Abs. Baso - 0.0 k/mm3???Neut % - 65.7 %???Lymph % - 23.0 %???Summit % - 8.3 %???Eos % - 0.9 %???Baso % - 0.5 %???Imm Gran- 1.6 %???Abs. Imm Gran - 0.1 k/mm3 CK Total Only (03/22/2023) ???CK, Total - 60 units/L Comprehensive Metabolic Panel (03/22/2023) ???Sodium - 139 mmol/L???Potassium - 4.9 mmol/L???Chloride - 105 mmol/L???Bicarbonate Level - 19 mmol/L???Anion Gap - 15???Glucose Level - 90 mg/dL???BUN - 28 mg/dL???Creatinine-Blood - 1.0 mg/dL???Estimated GFR Creatinine - 88 ML/MIN/1.73 M2???Calcium - 8.2 mg/dL???Protein, Total - 5.9 Gm/dL???Albu min - 3.1 Gm/dL???AG Ratio - 1.1???Alkaline Phosphatase - 303 units/L???AST (SGOT) - 378 units/L???ALT (SGPT) - 478 units/L???Bilirubin, Total - 0.7 mg/dL Creatinine (03/31/2023) ???Creatinine-Blood - 0.9 mg/dL???Estimated GFR Creatinine - 96 ML/MIN/1.73 M2 Electrolytes (03/25/2023) ???Sodium - 139 mmol/L???Potassium - 3.9 mmol/L???Chloride - 107 mmol/L???Bicarbonate Level - 23 mmol/L???Anion Gap - 9 Glucose Level (03/31/2023) ???Glucose Level - 72 mg/dL GLUCOSE POC (03/26/2023) ???Glucose, POC - 80 mg/dL GLUCOSE POC CARTRIDGE (03/22/2023) ???Glucose (POC) POC Cartridge - 92 HEMATOCRIT POC CARTRIDGE (03/22/2023) ???Hematocrit (POC) POC Cartridge - 41 % HEMOGLOBIN POC CARTRIDGE (03/22/2023) ???Hemoglobin (POC) POC Cartridge - 13.9 Gm/dL HOLD CONTRERAS TUBE (03/24/2023) ???Hold Contreras Top - SPECIMEN DISCARDED AFTER 1 WEEK INR (03/25/2023) ???INR - 1.1???Protime (PT) - 11.9 seconds Ionized Calcium (03/31/2023) ???Calcium, Ionized pH Corrected - 1.21 mmol/L Lactate Level (03/22/2023) ???Lactate - 4.9 mmol/L Lactic Acid Level (03/23/2023) ???Lactate - 1.5 mmol/L Lipase (03/20/2023) ???Lipase - 17 units/L Lytes (03/31/2023) ???Sodium - 137 mmol/L???Potassium - 4.2 mmol/L???Chloride - 105 mmol/L???Bicarbonate Level - 23 mmol/L???Anion Gap - 9 Magnesium Level (03/31/2023) ???Magnesium - 2.0 mg/dL Phosphorus Level (03/31/2023) ???Phosphorus - 3.4 mg/dL POTASSIUM POC CARTRIDGE (03/22/2023) ???Potassium (POC) POC Cartridge - 3.5 mmol/L PTT (03/23/2023) ???APTT - 28.0 seconds Respiratory Pathogen PCR with COVID-19 (03/20/2023) ???Adenovirus by PCR - NEGATIVE???Coronavirus 229E by PCR (not COVID-19) - NEGATIVE???Coronavirus HKU1 by PCR (not COVID-19) - NEGATIVE???Coronavirus NL63 by PCR (not COVID-19) - NEGATIVE???Coronavirus OC43 by PCR (not COVID-19) - NEGATIVE???Human Metapneumovirus by PCR - NEGATIVE???Rhinovirus/Enterovirus by PCR - NEGATIVE???Influenza A by PCR - NEGATIVE???Influenza B by PCR - NEGATIVE???Parainfluenza 1 by PCR - NEGATIVE???Parainfluenza 2 by PCR - NEGATIVE???Parainfluenza 3 by PCR - NEGATIVE???Parainfluenza 4 by PCR - NEGATIVE???RSV by PCR - NEGATIVE???Bordetella Pertussis by PCR - NEGATIVE??? Chlamydophila Pneumoniae by PCR - NEGATIVE???Mycoplasma Pneumoniae by PCR - NEGATIVE???COVID-19 (SARS-CoV-2) by PCR - NEGATIVE???Bordetella Parapertussis by PCR - NEGATIVE SGOT (03/23/2023) ???AST (SGOT) - 712 units/L SGPT (03/23/2023) ???ALT (SGPT) - 769 units/L SODIUM POC CARTRIDGE (03/22/2023) ???Sodium (POC) POC Cartridge - 139 mmol/L Troponin T, High Sensitivity (03/21/2023) ???High Sensitivity Troponin (HSTnT) - 13 ng/L Type and Screen (03/20/2023) ???Blood Type - O Positive???Antibody Screen - Negative Vancomycin Trough (03/22/2023) ???Vancomycin Level, Trough - 12.3 mg/L VBG POC CARTRIDGE (03/20/2023) ???pH Venous (POC) POC Cartridge - 7.58???pCO2 Venous (POC) POC Cartridge - 19.8 mm Hg???pO2 Venous(POC) POC Cartridge - 49 mm Hg???Est Bicarbonate (POC) POC Cartridge - 18.4 mmol/L???% O2 Sat Venous (POC) POC Cartridge - 91???Specimen Type - Blood Gas - VENOUS Allergies (NKA means No Known Allergies) Contrast Dye??(hives) Problems Active Problems??(25) Arthralgia?? Benign prostatic hyperplasia?? CAD (coronary artery disease)?? Chronic kidney disease (CKD)?? Concentration deficit?? Constipation, chronic?? Depression, major, in remission?? Gallstone pancreatitis?? GERD (gastroesophageal reflux disease)?? Hemoptysis?? Hemorrhoids?? History of myocardial infarction?? History of rectal cancer?? Hyperlipidemia?? Hypertension?? Hypogonadism male?? Leg cramps?? Metatarsalgia of both feet?? Nephrolithiasis?? Obese class I?? WILIAM on CPAP?? Plantar fasciitis, left?? S/P cholecystectomy?? Sleep apnea?? Testosterone deficiency?? Education Materials Below is the list of Educational Leaflet Providered with your Discharge Instructions. Understanding Liver Abscess Treatment?? Valuables and Belongings I fully understand and agree that [facility] accepts no responsibility for all my personal [...] to send valuables and belongings home. ?? Review of Valuable and Belonging List: With patient, With witness Possessions released to: no valuables in pre op Date for Pt to Sign Valuables/Belongings: 04/02/23 11:10:00 ?? Other Discharge Information ? Case Management Discharge Plan?? Discharge Plan?? Discharge Agency Information?? Discharge Level of Care at Discharge: Homehealth/VNA Name of Agency #1: [facility] [phone] Discharge VNA/Hospice/Home Care: [facility] [phone] Agency Machine Specialist #1: Intake ?? Service Categories #1: Physical Therapy, Penitentiary ?? Service Comments #1: [facility] will contact you to resume you VNA services. ??Please call their office with any questions. ?? Pulmonary Rehab Status?? Pulmonary Rehab Discharge Status?? CPAP/BiPAP Mask Type: Full CPAP/BiPAP Mask Size: Medium Respiratory Rate: 18 br/min ? Common Emergency Awareness Tips IS [...] are strongly encouraged to quit. Please call [facility] Link at [phone] or [phone] ([phone]) or log in to [email or web address] for referrals to smoking cessation programs. ?? 892 Suicide & Crisis Lifeline is available 11/01 if you or someone you know needs to find a reason to keep living. By calling 597 you'll be connected to a skilled, trained counselor at a crisis center in your area. INPATIENT DISCHARGE INSTRUCTIONS SIGNATURE PAGE MAURO VASQUEZ Location:[facility] Registration Date and Time:03/21/2023 01:36 EDT Primary Care Physician: Magaly BARNARD, Min Blackman, Attending Physician: Farzad BARNARD, Jarad, I MAURO VASQUEZ, have received the above patient education materials/instructions and have verbalized understanding. If ambulance or transport services are being used I further acknowledge being given a choice of service. ?? If you need to contact me, please call me at this number: . Patient/Campaign Advisor Name: Patient/Campaign Advisor Signature: Relationship to Patient: Witness Name/Signature: Date: * Maria C Mijares: MODIFY, PERFORM, MODIFY, MODIFY Event Display: Discharge/Transfer Note Hospital Authored Date: Patient: ??MAURO VASQUEZ ? Age:??67 Years?Sex:??Male?:??1955?? Admit Date Admission Date: 03/21/2023 Discharge Date 04/01/23 Discharge Diagnoses Cholangitis, 03/21/2023 Hospital Course Mauro Vasquez is a 67-year-old male with history of rectal cancer, GERD, CAD s/p DARRION in 2008, hypertension, HLD, WILIAM and recent admission [place] [facility] [place] January for gallstone pancreatitis for which he underwent a laparoscopic cholecystectomy that was complicated by a cystic duct leak requiring ERCP with CBD stent (02/13). He presented to [facility]ED 03/20/23??from home??with c/o??several days of anorexia,fevers and a syncopal episode. On arrival to the ED he was febrile to 101.4, hypotensive, and tachycardic.??He was bolused 4L IVF, started on IV antibiotics.?? He underwent a CT scan of the abdomen and pelvis which revealed increase in stranding and heterogeneous attenuation in the gallbladder fossa though to be a postoperative infection, hematoma, ongoing bile leak, or combination. He was started on pressors and admitted to the ICU.? GI was consulted and?? on 03/21 he underwent??emergent ERCP where he was noted to have an active bile leak from the cystic duct, He underwent removal of his CBD stent, and insertion of a 10 cm 10 [place] biliary stent from the CHD past was found to be a leak from the cystic duct which was drainingpurulent material. A double J stent was also placed through the cystic duct with the proximal end in what appeared to be a purulent collection in the gallbladder fossa. During the ERCP the patient received 1L of LR, and was weaned off of??Levophed. He was then transferred to STICU for close hemodynamic monitoring.??He was continued on abx. A repeat CT??scan of abdomen and pelvis??done 03/23 revealed a persistent heterogeneous density in the gallbladder fossa, with decrease in surrounding inflammatory change adjacent to the biliary stents??(4.2 x 2.9cm) in addition to small hypodensity in RUL of liver consistent with hepatic abscess (1.5 x 0.6cm).?Patient was able to be downgraded??from the STICU to the floor on 03/24. He underwent repeat ERCP with stent extraction??on 03/27, where??again cystic duct leak and pus from the cystic duct noted.??He continued on zosyn. He did have several CT scans following the collections in GB fossa and liver. The last CT scan on 04/01 did reveal dec size in hepatic abscess and collection in GB fossa. ?? He was tolerating diet with good gi function. Labs without leukocytosis. He remains afebrile. Hewas cleared for discharge on 04/01. Upon speaking with the pharmacist. Decision made to discharge pt with?? plan to continue Augmentin 875mg tid x 2 weeks. No narcotics given as his pain was controlled without any medication. He will have ct scan prior to follow up.The pretreatment medication was sent to pharmacy. ??He was instructed to resume home medications. No further medication changes made during the hospital course. Objective/Physical Exam on Day of Discharge Vitals & Measurements T:??98.2?F?? HR:??72??(Peripheral)?? RR:??19?? BP:??142/80?? BP:??114/59(Line)?? SpO2:??95%?? WT:??103.4??kg?? GENERAL: no acute distress. HEART: heart rate regular CHEST: Non labored ABDOMEN: Soft, non tender, non distended. Negative Aleman's sign EXTREMITIES: no calf tenderness NEUROLOGIC: A/O x3 Future Appointments Wednesday 9:20 AM EST ?? With: Kostas BARNARD, Prateek Casarez Where: [facility] [address] [place] [address]- Status: Pending Wednesday 2:30 PM EST ?? With: Magaly BARNARD, Min Blackman Where: [facility] [address] [place] [address]- Status: Pending Wednesday 2:45 PM EST ?? With: Sina Carlos MD Where: [facility] [address] [place] [address]- Status: Pending Patient Discharge Condition good, improved Discharge Disposition home Home Health Face to Face ^HomeHealthFTF Inpatient Medications Medications (8) Active SCHEDULED: (6) Enoxaparin 40 mg Inj (Enoxaparin Inj) ??40 mg 0.4 mL, Subcutaneous Injection, Daily Losartan 50 mg Tablet (losartan 50 mg oral tablet) ??50 mg, By Mouth, Daily Metoprolol 50 mg XL Tablet (metoprolol 50 mg oral tablet, extended release) ??50 mg, By Mouth, Daily Pantoprazole 40 mg Inj (Protonix Inj) ??40 mg, IV Push Slowly, Daily Piperacillin/Tazobactam 3.375 Gm Inj (Zosyn Extended IVPB) ??3.375 Gm, IVPB, Every 8 hours saw junior ??1 capsule, By Mouth, 2 times a day CONTINUOUS: (0) PRN: (2) Acetaminophen 325 mg Tablet (Tylenol 325 mg oral tablet) ??650 mg, By Mouth, Every 4 hours Albuterol 0.5% Inhalation Solution 0.5mL (Albuterol 0.5% inhalation marvin) ??0.63 mg 0.13 mL, Neb, Every 4 hours Discharge Medications Amoxicillin-Clavulanate (Augmentin 875 mg-125 mg oral tablet)?1?tab(s)?By Mouth?Every 8hours?for 14?Days Aspirin?81?Milligram?By Mouth?Daily Atorvastatin (atorvastatin 40 mg oral tablet)?1?tab(s)?By Mouth?Daily at bedtime Cetirizine (ZyrTEC 10 mg oral tablet)?See Instructions?1 tablet By Mouth [address] Gemfibrozil (gemfibrozil 600 mg oral tablet)?1?tablet?By Mouth?2 times a day Losartan (losartan 50 mg oral tablet)?50?Milligram?1?tablet?By Mouth?Daily?for90?Days MethylPREDNISolone (Medrol 32 mg oral tablet)?See Instructions?take 32 mg by mouth [address] scan, then take another 32 mg by mouth [address] Metoprolol (Metoprolol Succinate ER 50 mg oral tablet, extended release)?1?tab(s)?By Mouth?Daily Nitroglycerin (nitroglycerin 0.4 mg sublingual tablet)?1?tab(s)?0.4?Milligram?Sublingual?Every 5 minutes?as needed?Chest Pain?not to exceed 3 doses/15 min--if pain persists, seek medical attentionCall 911 Pantoprazole (pantoprazole 40 mg oral delayed release tablet)?1?tab(s)?By Mouth?Daily Saw [place] (saw palmetto 320 mg with phytosterols oral capsule)?1?capsule?320?Milligram?By Mouth?2 times a day Testosterone (AndroGel 40.5 mg (1.62%) transdermal gel)?2?pack/packet?Topically?Daily in AM Labs Last 24 Hours No qualifying data available. Patient Education Titles Understanding Liver Abscess Treatment?? Follow-Up Appointments Will need to get CT scan of abdomen??prior to follow up appointment, after completion of antibiotics. If the surgical follow up appointment will be moved up to accommodate CT scan timing, you be called with new appointment.?? You will be called with CT scan timing. Patient Instructions ??Please take medications as prescribed and do not drive while on narcotic medications. ?? If you have any questions, please call the surgery office at . ?? Please call your Primary Care Provider within 1 week for post hospital follow up and review of yourmedications. ? Activity Instructions ?? -Increase activity as tolerated ?? When to call your healthcare provider: ?? Call your healthcare provider if you have any of the below: Fever of 100.4??F ( 38??C) or higher, or Chills Persistent Nausea or Vomiting Redness or skin changes of the abdomen Persistent abdomen pain not relieved with pain medications Prolonged inability to pass stool or gas, persistent food intolerance ? CT scan premedication instructions: Take methylprednisone 32mg?? by mouth 12?? hours prior to CT scan ?? Take Methylprednisone 32 mg by mouth [address] scan and Take Zyrtec 10mg by mouth [address] scan ? * Donovan VIDALES, Maureen Alexander: PERFORM Event Display: Discharge/Transfer Note Hospital Authored Date: Pt continues to progress well. He has tolerated Augmentin without any side effects. He is tolerating a solid diet without any increased pain, nausea or vomiting. He is voiding and getting oob withoutany difficulties. Updated , long discussion regarding his current plan of care and??upcoming events including??red flags to look for, ??when to seek medical assistance, upcoming imaging, and upcoming provider FU's. Provided her with contact??#'s for surgical team and GI team. The patient will be going home with resumption of VNA services. * Tha DELGADO, Maria C Ervin: PERFORM Event Display: Patient Education Leaflets Authored Date: Understanding Liver Abscess Treatment ?? [id number] Understanding Liver Abscess Treatment A liver abscess is a pocket of infected fluid (pus) that forms in the liver. It is caused by infection from germs such as bacteria, parasites, or fungus. It must be treated right away to prevent serious problems. It often causes symptoms such as: ??? Fever ??? Belly (abdominal) pain ??? Extreme tiredness (fatigue) ??? Loss of appetite ??? Upsetstomach (nausea) ??? Vomiting ??? Diarrhea ??How to say it AB-sehs ?? Why liver abscess treatment is done A liver abscess is a severe infection. It can lead to serious problems and cause . It can harmtissue in the area where it???s found. It can also cause symptoms such as fever, pain, nausea, diarrhea, and loss of appetite. It can cause a severe infection throughout the body called sepsis. Treatment is done to cure the abscess, stop symptoms, and prevent . ?? How liver abscess treatment is done The type of treatment you have depends on what caused the abscess. It also depends on how many abscesses you have, and how big they are. Treatment may include: ??? Taking medicine. An abscess is first treated with antibiotic or antifungal medicine. You will need to take medicine for a few weeks. You may take it by mouth as a pill or liquid. Or the medicine may be put into a vein through an IV (intravenous) tube. ??? Draining the abscess. This may be done in addition to taking medicine. Or it may be done if medicine doesn???t work or the infection causesother problems. There are several ways to drain a liver abscess. The healthcare provider may put a syringe needle through your skin into the abscess. He or she then uses the syringe to drain the fluid. This is called aspiration. Or the provider may put a thin wire through your skin. The provider uses CT scan or ultrasound to help place the wire in the right spot. A thin, flexible tube (catheter) is then placed over the wire and into the abscess. The tube is left in place for 5 to 7 days to drain the fluid. In some cases, surgery may be done to cut into the liver abscess and drain it. After treatment, you may have follow-up imaging tests of your liver. This is often done by ultrasound, CT scan, or MRI. ?? Risks of liver abscess treatment ??? Bleeding ??? A second infection ??? Failure to cure the abscess ??? Need for more treatment ?? Last Reviewed Date: 2021 ?? [id number] [employer] All rights reserved. This information is not intended as a substitute for professional medical care. Always follow your healthcare professional's instructions. ?? Patient Care team information Care Team Personnel Name: Dawna Oshea RN Position: [facility] RN Member Role: Primary Care Nurse Name: Teresa Carey RN Position: S RN Member Role: Primary Care Nurse Name: Sasha Queen RN Position: S RN Member Role: Primary Care Nurse Name: Charleen Neri RN Position: [facility] RN Member Role: Primary Care Nurse Name: Min Mckenzie MD Position: [facility] Physician - Primary Care Member Role: PCP Address: Address: [address] [place] [id number]- Name: Vianey Gonzales NP Position: [facility] Associate Professional Member Role: Primary Care Nurse Address: Address: [address] [place] [address] Trauma [place] [address]- Name: Felecia Villegas LPN Position: [facility] RN Member Role: Primary Care Nurse Name: Maria C Pearson RN Position: [facility] RN Member Role: Primary Care Nurse Name: Geovanna Kumari RN Position: [facility] RN Member Role: Primary Care Nurse Name: Shi Dawn RN Position: [facility] RN Member Role: Primary Care Nurse Name: Tali Paul RN Position: [facility] RN Member Role: Primary Care Nurse Name: Alicia Croft RN Position: [facility] RN Member Role: Primary Care Nurse Name: Aicha Lai RN Position: [facility] RN Member Role: Primary Care Nurse Name: Dino Fleming RN Position: [facility] RN Member Role: Primary Care Nurse Name: Luisa Mitchell RN Position: [facility] RN Member Role: Primary Care Nurse Name: Storm Gutierrez RN Position: [facility] RN Member Role: Primary Care Nurse Name: Nirav Nicholson RN Position: [facility] RN Member Role: Primary Care Nurse Name: Elaine Clark RN Position: [facility] RN Member Role: Primary Care Nurse Name: Mara Miranda RN Position: [facility] RN Member Role: Primary Care Nurse Name: Mara Daly RN Position: [facility] ED RN W/OE and Tasks Member Role: Primary Care Nurse Name: Nellie Vivas RN Position: [facility] RN Member Role: Primary Care Nurse Name: Emy Balderas LPN Position: [facility] RN Member Role: Primary Care Nurse Name: Caitlyn Anderson RN Position: [facility] RN Member Role: Primary Care Nurse Name: Lelia Clarke RN Position: [facility] RN Member Role: Primary Care Nurse Name: Jessica ZAVALETA Attending Position: [facility] ED Medicine MD Name: Zoë Hernández DO Position: [facility] Resident Member Role: ED Resident Address: Address: [address] [place] [address] Emergency Medicine [place], [place] [address] Name: Sabine Barahona Position: [facility] ED OA Charge Member Role: ED Associate Care Team Related Persons Name: KATHARINA VASQUEZ Address: [address] [address]
--- OUTSIDE RECORDS SUMMARY | 2024-01-05 10:04 | XMS_ITS | Patient Health Record ---
[facility] [place] anita Lin Address [address] [facility] [place] [address] Care Team Providers Care Jigger Operator Name Role Phone Min Mckenzie MD Primary Care Provider Josemanuel Tanner [phone] ALLERGIES Allergen (clinical drug ingredient) Drug/Non Drug Allergy documented on EMR Reaction Allergy Type Onset Date Status tartrazine Dye, Tartrazine Unknown Drug Allergy Active REASON FOR REFERRAL No Information MEDICATIONS Medication SIG (Take, Route, Frequency, Duration) Notes Start Date End Date Status Metoprolol Succinate 50 MG 1 capsule Ora lly Once a day for 30 day(s) Active Gemfibrozil 600 MG 1 tablet 30 minutes before morning and evening meals Orally Twice a day for 30 day(s) Active Fish Oil 1200 MG 1 capsule Orally Onc e a day for 30 day(s) Active Finasteride 5 MG 1 tablet Orally Once a day for 30 day(s) Active tiZANidine HCl 2 MG 1 tablet as needed Orally Three times a day Active Atorvastatin Calcium 40 MG 1 tablet Oral ly Once a day for 30 day(s) Active Testosterone 40.5 MG/2.5GM (1.62%) 1 packet to skin in the morning to shoulder and upper arms Transdermal Once a day Active Aspirin 81 MG 1 tablet Orally Once a day for 30 day(s) Active Tamsulosin HCl 0.4 MG 1 capsule Orally O nce a day for 30 day(s) Active Pantoprazole Sodium 40 MG 1 tablet Orall y Once a day for 30 day(s) Active Pancreatin - as directed Activ e Multivitamin - 1 tablet Orally Once a day for 30 day(s) Active Lisinopril 20 MG 1 tablet Orally Once a day for 30 day(s) Active hydroCHLOROthiazide 12.5 MG 1 capsule in the morning Orally Once a day for 30 day(s) Active SOCIAL HISTORY Tobacco Use: Social History Observation Description Date Details (start date - stop date) Never Smoker NA - NA Sex Assigned At : Social History Observation Description Sex Assigned At Unknown Tobacco Use/Smoking Question Answer Notes Are you a: nonsmoker Additional Findings: Tobacco Non-User Current no n-smoker Alcohol Screen Question Answer Notes Did you have a drink contain ing alcohol in the past year? Yes How often did you have a dri nk containing alcohol in the past year? Monthly or less (1 point) Points 1 Interpretation Negative Tobacco use other than smoking: Question Answer Notes Are you an other tobacco user? No PROBLEMS Problem Type ICD Code Onset Dates Problem Status W/U Status Risk SNOMED Code Notes Problem Primary osteoarthrit is, right ankle and foot (M19.071) Active confirmed Localized, prim melissa osteoarthritis of the ankle and/or foot (717134679) PLAN OF TREATMENT Pending Test Test Name Order Date X ray : Foot, right 3V 02/18/2021 Insurance Providers Payer Name Payer Address Payer Phone Subscriber Number Group Number Insured Name Patient Relationship to Insured Coverage Start Date Coverage End Date [facility] [employer] Claims [address] [place] [id number] Wood Rios Self - patient is the insured MEDICAL (GENERAL) HISTORY Medical History History ICD Code Cancer Depression Heart disease High blood pressure Kidney disease Reflux ( GERD) Surgical History Surgery Date(Month/Year) cancer surgery 2013
--- OUTSIDE RECORDS SUMMARY | 2024-01-05 10:04 | XMS_ITS | Continuity of Care Document ---
Author Organization [facility] Address [address] [place] [address] [address] [place] [address]- Care Team Providers Care Route Deliverer Name Role Phone Min Mckenzie MD Primary Care Physician Encounter [facility] Date(s): 02/23/23 - 03/25/[address] [place] [address]- Attending Physician: Admtr, Pippa Admitting Physician: AdmtrPippa [...] 3Location History: [facility] 4Result Comment: [id number] 5Location History: [facility] 6Location History: [...] tablet, 3 Refills, Maintenance, 02/04/23 9:18:00 EDT, [facility] #[id number], 175.3, cm, 02/04/23 8:41:00 EDT, Height Start Date: 02/04/23 Status: Ordered erythromycin 0.5% ophthalmic ointment 0.5 inches, Eyes, Both, 4 times a day, # 4 Gm, 0 Refills, Maintenance, 10/22/22 10:20:00 EDT, OphthOintment, [facility] #[id number], Partial fill upon patient request if the [...] 02/04/23 9:18:00 EDT, Route to Pharmacy Electronically, [facility] #[id number], 175.3, cm, 02/04/23 8:41:00 EDT, Height Start Date: 02/04/23 Status: Ordered losartan 50 mg oral tablet 50 mg, 1, tablet, By Mouth, Daily, # 90 tablet, Refills 3, Tot. Refills 3, Maintenance, 02/04/23 9:19:00 EDT, Route to Pharmacy Electronically, [facility] #[id number], Partial fill upon patient request if the [...] tablet, 3 Refills, Maintenance, 02/04/23 9:18:00 EDT, [facility] #[id number], 175.3, cm, 02/04/23 8:41:00 EDT, Height Start [...] Team Personnel Name: Sasha Queen RN Position: [facility] RN Member Role: Primary Care Nurse Name: Charleen Neri RN Position: [facility] RN Member Role: Primary Care Nurse Name: Min Mckenzie MD Position: [facility] Physician - Primary Care Member Role: PCP Address: Address: [address] [place] [id number]- Name: Vianey Gonzales NP Position: [facility] Associate Professional Member Role: Primary Care Nurse Address: Address: [address] [place] [address] Trauma and [place] [address]- Name: Felecia Villegas LPN Position: [facility] RN Member Role: Primary Care Nurse Name: Geovanna Kumari RN Position: S RN Member Role: Primary Care Nurse Name: Tali Paul RN Position: S RN Member Role: Primary Care Nurse Name: Alicia Croft RN Position: S RN Member Role: Primary Care Nurse Name: Dino Felming RN Position: S RN Member Role: Primary Care Nurse Name: Luisa Mitchell RN Position: S RN Member Role: Primary Care Nurse Name: Storm Gutierrez RN Position: [facility] RN Member Role: Primary Care Nurse Name: Nirav Nicholson RN Position: [facility] RN Member Role: Primary Care Nurse Name: Elaine Clark RN Position: [facility] RN Member Role: Primary Care Nurse Name: Mara Miranda RN Position: [facility] RN Member Role: Primary Care Nurse Name: Mara Daly RN Position: [facility] ED RN W/OE and Tasks Member Role: Primary Care Nurse Name: Emy Balderas LPN Position: [facility] RN Member Role: Primary Care Nurse Care Team Related Persons Name: TACOS VASQUEZ Address: [address] [address]
--- OUTSIDE RECORDS SUMMARY | 2024-01-05 10:04 | XMS_ITS | Continuity of Care Document ---
Author Organization [facility] Address [address] [place] [id number]- Care Team Providers Care Mechanical Drafter Name Role Phone Min Mckenzie MD Primary Care Physician [facility]counter [facility] Date(s): 06/02/23 - 07/02/23 [facility] [address] [place] [address]- Attending Physician: Pippa Argueta Admitting Physician: AdmtrPippa Referring Physician: Admtr, Ar8 [...] 3Location History: [facility] 4Result Comment: [id number] 5Location History: [facility] 6Location History: [...] tablet, 3 Refills, Maintenance, 02/04/23 9:18:00 EDT, [facility] #[id number], 175.3, cm, 02/04/23 8:41:00 EDT, Height Start Date: 02/04/23 Status: Ordered FLUoxetine 20 mg oral capsule 20 mg, 1, capsule, By Mouth, Daily, # 90 capsule, Refills 1, Tot. Refills 1, Maintenance, 04/27/23 14:10:00 EST, Route to Pharmacy Electronically, [facility][id number], Partial fill upon patient request if the prescription is for a schedule II... Start Date: 04/27/23 Status: Ordered gemfibrozil 600 mg oral tablet 1, tablet, By Mouth, 2 times a day, # 180 tablet, Refills 3, Tot. Refills 3, Maintenance, 02/04/23 9:18:00 EDT, Route to Pharmacy Electronically, [facility] #[id number], 175.3, cm, 02/04/23 8:41:00 EDT, Height Start Date: 02/04/23 Status: Ordered losartan 50 mg oral tablet 50 mg, 1, tablet, By Mouth, Daily, # 90 tablet, Refills 3, Tot. Refills 3, Maintenance, 02/04/23 9:19:00 EDT, Route to Pharmacy Electronically, [facility][id number], Partial fill upon patient request if the prescription is for a schedule II opi... Start Date: 02/04/23 Stop Date: 01/30/24 Status: Ordered Metoprolol Succinate ER 50 mg oral tablet, extended release 1 tablet, By Mouth, Daily, # 90 tablet, 3 Refills, Maintenance, 02/04/23 9:18:00 EDT, [facility] #[id number], 175.3, cm, 02/04/23 8:41:00 EDT, Height Start [...] 0 Refills, Maintenance, 04/01/23 15:46:00 EDT, Capsule, [facility], Partial fill upon patient request if the prescription is for a schedule II opioid drug., 175, cm, 03/20/23 22... Start Date: 04/01/23 Status: Ordered ZyrTEC 10 mg oral tablet See Instructions, 1 tablet By Mouth [address] scan, # 1 tablet, 0 Refills, Maintenance, 04/01/23 15:33:00 EDT, Tablet, [facility], Partial fill upon patient [...] Name: Dawna Oshea RN Position: [facility] RN Member Role: Primary Care Nurse Name: Teresa Carey RN Position: S RN Member Role: Primary Care Nurse Name: Sasha Queen RN Position: S RN Member Role: Primary Care Nurse Name: Charleen Neri RN Position: [facility] RN Member Role: Primary Care Nurse Name: Min Mckenzie MD Position: [facility] Physician - Primary Care Member Role: PCP Address: Address: [address] [place] [id number]- [place] Name: Vianey Gonzales NP Position: [facility] Associate Professional Member Role: Primary Care Nurse Address: Address: [address] [place] [address] Trauma [place] [address]- [place] Name: Felecia Villegas LPN Position: S RN Member Role: Primary Care Nurse Name: Maria C Pearson RN Position: S RN Member Role: Primary Care Nurse Name: Geovanna Kumari RN Position: [facility] RN Member Role: Primary Care Nurse Name: Shi Dawn RN Position: [facility] RN Member Role: Primary Care Nurse Name: Tali Paul RN Position: [facility] RN Member Role: Primary Care Nurse Name: Alicia Croft RN Position: [facility] RN Member Role: Primary Care Nurse Name: Aicha Lai RN Position: [facility] RN Member Role: Primary Care Nurse Name: Dino Fleming RN Position: [facility] RN Member Role: Primary Care Nurse Name: Luisa Mitchell RN Position: [facility] RN Member Role: Primary Care Nurse Name: Storm Gutierrez RN Position: [facility] RN Member Role: Primary Care Nurse Name: Nirav Nicholson RN Position: [facility] RN Member Role: Primary Care Nurse Name: Elaine Clark RN Position: [facility] RN Member Role: Primary Care Nurse Name: Mara Miranda RN Position: [facility] RN Member Role: Primary Care Nurse Name: Mara Daly RN Position: [facility] ED RN W/OE and Tasks Member Role: Primary Care Nurse Name: Nellie Vivas RN Position: [facility] RN Member Role: Primary Care Nurse Name: Emy Balderas LPN Position: [facility] RN Member Role: Primary Care Nurse Name: Caitlyn Anderson RN Position: [facility] RN Member Role: Primary Care Nurse Name: Lelia Clarke RN Position: [facility] RN Member Role: Primary Care Nurse Care Team Related Persons Name: TACOS VASQUEZ Address: [address] [address]
--- NOTE | 2024-01-05 10:56 | MHC.SHP ---
Pre-Procedural Eval Section A - 24 Hr Update-Section A only Date of Service: 01/05/24 The patient is an INPATIENT: No Changes since office visit: No Cold of Flu in the past 2 weeks, No New Medical Problems, No Changes in Medication and No Patient answered all questions Section B - Complete if H&P > 30 days Chief Complaint: Hemoptysis Allergies: Allergies Allergy/AdvReac Type Severity Reaction Status Date / Time Iodinated Contrast Media Allergy Intermediate HIVES Verified 01/04/24 09:43 [IV Dye, Iodine Containing] IV contrast Allergy Unknown rash Uncoded 01/04/24 09:43 Plan I have reviewed the history and physical and performed a pertinent physical examination on my patient. No changes have occurred unless specified. Time Spent With Patient Time: Total time managing care of this patient today ____ minutes.
--- NOTE | 2024-01-11 10:41 | OP_ITS ---
DATE OF SERVICE: 01/05/2024 SURGEON: Taj Jernigan MD PREOPERATIVE DIAGNOSIS: Hemoptysis. POSTOPERATIVE DIAGNOSIS: PROCEDURE PERFORMED: Bronchoscopy with washings. ESTIMATED BLOOD LOSS: Total bleeding about 4 mL. COMPLICATIONS: None. ANESTHESIA: LMA. ASSISTANTS: None. SPECIMENS: POSTOPERATIVE DIAGNOSES: Epistaxis and pharyngolaryngitis with bleeding. DESCRIPTION OF PROCEDURE: After the patient was adequately sedated, a flexible digital bronchoscope was inserted via the LMA to the level of the larynx. The larynx appeared to be normal except for some areas of engorgement of the mucosa likely with some neovascularizations and some vessels that were very superficial and suspicious for potential bleeding. After instilling lidocaine, the bronchoscope was then passed the vocal cords to the level of the trachea. Trachea was normal. No evidence of any bleeding. After instilling lidocaine, the bronchoscope was navigated through the entire tracheobronchial tree that was examined up to the subsegmental level. No evidence of any active bleeding. Bronchial washings were performed without any evidence of any old blood or hemosiderin. The patient, however, did have some bleeding from the LMA placement. The bronchoscope was then removed and surveyed the nasal passages. The turbinates appeared to be okay. The posterior nasopharynx did have some bleeding. It was hard to know if it was from the trauma from the LMA and its positioning or if it was actually bleeding from the sinuses. It was tried to be clear as much as possible. Epinephrine was introduced into one of the sinuses with good hemostasis. The LMA was removed and then, we tried to visualize the oral examination to see if we could locate the area of bleeding, but there was too much blood to really be able to tell clearly. It could be secondary to the irritation of the mucosa, friability of the mucosa, and the trauma from the LMA as well. The bronchoscope was then removed and the total endoscopic time approximately 15 minutes. MD SUNNY Quintero/PATTIE / [id number]
--- NOTE | 2024-01-11 12:34 | PM.OP ---
Brief Operative Note Date of Service: 01/05/24 Pre-op diagnosis: hemoptysis Post-op diagnosis: other (epistaxis, pharyngolaryngitis) Procedure: Bronchoscopy Surgeon: Taj Jernigan MD Anesthesia: GLMA Was an Urologist Physician used for this Procedure?: No Estimated blood loss (mL): 5 Pathology: none sent Condition: stable Disposition: same day
== END 2024-01-05 14:40 | disposition home or self-care (01) ==
PROVIDERS: Visit Provider Hospitalist
PROC: 0BJ08ZZ Inspection of Tracheobronchial Tree, Via Natural or Artificial Opening Endoscopic (ICD-10-PCS; CPT 31622; principal; 2024-01-05 12:00)
DX: R04.2 Hemoptysis (principal); R06.09 Other forms of dyspnea; B96.3 Hemophilus influenzae [H. influenzae] as the cause of diseases classified elsewhere; J95.830 Postprocedural hemorrhage of a respiratory system organ or structure following a respiratory system procedure; R04.0 Epistaxis; Y83.8 Other surgical procedures as the cause of abnormal reaction of the patient, or of later complication, without mention of misadventure at the time of the procedure; Y92.234 Operating room of hospital as the place of occurrence of the external cause; Z87.828 Personal history of other (healed) physical injury and trauma; M54.2 Cervicalgia; J02.9 Acute pharyngitis, unspecified; J98.6 Disorders of diaphragm; Z80.8 Family history of malignant neoplasm of other organs or systems; J44.9 Chronic obstructive pulmonary disease, unspecified; G47.33 Obstructive sleep apnea (adult) (pediatric); Z99.89 Dependence on other enabling machines and devices; Z91.041 Radiographic dye allergy status
CPT/HCPCS: 31622; 87070; 87077; 87185; 87205; 88112; 88305; J0171; J1100; J2250; J2704; J3010

== ENCOUNTER → 2024-01-05 09:57 | Outpatient (BNV) | payer OTHER, SELFPAY | PROVIDERS: Visit Provider Hospitalist | DX: J06.0 Acute laryngopharyngitis (principal); R04.2 Hemoptysis | CPT/HCPCS: 31622 ==

== ENCOUNTER 2024-04-05 14:14 | Outpatient (REF) | payer OTHER, SELFPAY ==
--- NOTE | ~2024-04-05 | FL_ITS ---
EXAMINATION: Modified Barium Swallow CLINICAL INFORMATION: Dysphagia. COMPARISON: None. TECHNIQUE: Modified barium swallow was performed under lateral fluoroscopy with patient in standing position. Barium mixed with solids and liquids of different consistencies was administered by the speech pathologist. Examination was recorded in the fluoroscopy suite. FINDINGS: No laryngeal penetration or tracheal aspiration was observed during this examination. 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 Mild cricopharyngeal achalasia is present. FLUOROSCOPY TIME: 2 minutes 49 seconds Number of Spot Images: N/A DOSE AREA PRODUCT: [id number] uGy-m2 (microgray-meter squared) FL/FL Modified Barium Swallow IMPRESSION: 1. No laryngeal penetration or tracheal aspiration was observed during this examination. 2. 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 3. Mild cricopharyngeal achalasia. Refer to the speech therapy report for further clarification This procedure was performed by Magen Alvarado PA-C, and supervised by Dr. Monreal Electronically signed by: Han Monreal MD 04/07/2024 01:09 PM EDT
[2024-04-05 16:30] LABS: Anion Gap 11 (12-20); Blood Urea Nitrogen 15 mg/dL (9-16); Calcium 9.2 mg/dL (8.4-10.2); Carbon Dioxide 28 mmol/L (22-29); Chloride 102 mmol/L (96-108); Estimated Glomerular Filt Rate > 60; Glucose Random 111 mg/dL (60-115); Potassium 4.3 mmol/L (3.3-5.1); Sodium 137 mmol/L (135-145)
[2024-04-05 16:49] LABS: PSA,Total (Free>4and<10) 0.54 ng/mL (0.00-4.00)
[2024-04-09 16:33] LABS: Testosterone, Free 77.2 pg/mL (35.0-155.0); Testosterone, Total 633 ng/dL (250-1100)
--- NOTE | 2024-04-13 08:45 | MHC.SL.IMP ---
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, unspecified Primary Speech & Language Diagnosis: R13.12 Oropharyngeal Phase Dysphagia Reason for Today's Visit: 86823 Modified Barium Swallow Study Medical History: Modified Barium Swallow Study Fluoroscopic Evaluation of Swallowing Function CPT Code 45090 Evaluation Year: 2023 Reason for Study: Difficulty swallowing Referring Physician: Taj Jernigan MD Evaluating Clinician: Mitra Murray MA, CCC-DOMESTIC TECHNICIAN Study Number: 1 Patient Name: Wood Rios Status: Outpatient Age: 68 Gender: Male Year of Onset or Diagnosis: 2023 Past Medical History: Medical History (Updated 10/18/23 @ 10:14 by Taj Jernigan MD) Neck pain Dyspnea Elevated diaphragm WILIAM (obstructive sleep apnea) Hypogonadism in male Urgency incontinence Renal stones BPH (benign prostatic hyperplasia) Hypogonadism Current (pre-evaluation) Intake/Diet: Route: Partial PO/Partial Alternate, PEG Tube Pre-Study Functional Oral Intake Scale (FOIS): 2- Tube dependent with minimal/inconsistent oral intake Pain: Chronic/Ongoing reported at time of study, Mouth and throat SUBJECTIVE: Patient is a 68 year old male referred for a modified barium swallow study by his fish cutter, Taj Jernigan MD, from [facility]. Patient was accompanied to this exam today by his , Katharina. Patient reports being diagnosed with throat cancer and subsequently undergoing chemotherapy and radiation therapy for the past 6 weeks. 3 weeks ago he also had a PEG tube placed which patient and his described as a ?preventative measure,? given his reduced PO intake. Patient is followed by a sole leveler machine in [place], has weekly appointments for PEG tube care, and is seen by a dietitian for unintended weight loss. Patient says he recently saw a speech therapist in [place], [place], but did not feel the appointment was very informative and does not recall having an instrumental swallow exam done in the past. He was referred for an MBSS to further evaluate the extent of his dysphagia and provide feeding recommendations. Patient reports pain in his mouth while chewing and pain when swallowing, especially harder foods. Food and Liquid Trials: Oral Impairment: Lip Closure: 0=No labial escape Oral Impairment: Tongue Control During Bolus Hold: 0=Cohesive bolus between tongue to palatal seal Oral Impairment: Bolus Preparation/Mastication: 1=Slow prolonged chewing/mashing with complete re-collection Oral Impairment: Bolus Transport/Lingual Motion: 1= Delayed initiation of tongue motion Oral Impairment: Oral Residue: 2=Residue collection on oral structures Oral Impairment:Initiation of Pharyngeal Swallow: 2=Bolus head at posterior laryngeal surface of epiglottis Pharyngeal Impairment: Soft Palate Elevation: 0=No bolus between soft palate (SP)/pharyngeal wall (PW) Pharyngeal Impairment: Laryngeal Elevation: 1=Partial thyroid cartilage/arytenoids to epiglottic petiole movement Pharyngeal Impairment: Anterior Hyoid Excursion: 1=Partial anterior movement Pharyngeal Impairment: Epiglottic Movement: 1=Partial inversion Pharyngeal Impairment: Laryngeal Vestibular Closure:: 1=Incomplete: narrow column air/contrast in laryngeal vestibule Pharyngeal Impairment: Pharyngeal Stripping Wave: 1=Present: diminished Pharyngeal Impairment: Pharyngeal Contraction: Did not test Pharyngeal Impairment: Pharyngoesophageal Segment Openin=Partial distention/partial duration: partial obstruction of flow Pharyngeal Impairment: Tongue Base (TB) Retraction: 2=Narrow column of contrast/air between TB and posterior PW Pharyngeal Impairment: Pharyngeal Residue: 2=Collection of residue within or on pharyngeal structures Pharyngeal Impairment: Esophageal Clearance Upright Position: Did not test Impressions and Recommendations Clinical Observations: OBJECTIVE: Time-out: performed at 15:00 Evaluation Start: 14:30; Stop: 14:40 Patient Positioning: Seated 70-90 degrees Viewing Planes: LATERAL ONLY Contrast: MBSImP? Standardized Protocol using commercially prepared, standardized Barium viscosities, including: Varibar? THIN LIQUID (40% w/v, <15 cps) , Varibar? NECTAR (40% w/v, <150-450 cps) , Varibar? PUDDING (40% w/v, <5181-7047 cps) , 1/2 Shortbread Cookie (1 x1 x.25 ) MBSImP ID: [id number] MBSImP Results: Lip closure for intraoral bolus containment resulted in no labial escape. Tongue control during bolus hold maintained a cohesive bolus held between tongue to palate seal. Bolus preparation and mastication resulted in slow, prolonged chewing/mashing but with complete re-collection. Bolus transport/lingual motion demonstrated delayed initiation of tongue motion. Oral residue was a collection on oral structures. Initiation of the pharyngeal swallow occurred as the bolus head was at the posterior laryngeal surface of the epiglottis. Soft palate elevation resulted in no bolus between the soft palate and the pharyngeal wall. Laryngeal elevation was decreased, with partial superior movement of the thyroid cartilage/partial approximation of the arytenoids to the epiglottic petiole. Anterior hyoid excursion demonstrated partial anterior movement. Epiglottic movement resulted in partial inversion. Laryngeal vestibular closure was incomplete, with a narrow column of air/contrast noted within the laryngeal vestibule at the height of the swallow. Pharyngeal stripping wave was present, but diminished. Pharyngeal contraction could not be determined due to logistical reasons not related to physiologic impairment. Pharyngoesophageal segment opening demonstrated partial distension/partial duration, with partial obstruction of bolus flow. Tongue base retraction allowed a narrow column of contrast or air between the retracted tongue base and the posterior pharyngeal wall. Pharyngeal residue was a collection of residue within or on pharyngeal structures. Esophageal clearance in the upright position could not be assessed due to logistical reasons not related to physiologic impairment. Oral Impairment Score: 6 Pharyngeal Impairment Score: 10 (absence of score, component 13) Esophageal Impairment Score: --- (absence of score, component 17) Laryngeal Penetration and Aspiration: Neither penetration nor aspiration was observed in today's study with Cookie, Pudding-thick, [place]-thick, Thin. 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 Mild cricopharyngeal achalasia is present.? ASSESSMENT: This exam was conducted by the radiologist and the speech pathologist. Patient was seated upright for lateral view only and trialed thin (via cup), nectar thick (via cup), puree, and regular solid consistencies. Note adequate labial seal with no anterior spilling. Good tongue control with patient maintaining cohesive bolus between tongue to palatal seal. Posterior lingual movement was delayed and mastication was mildly slowed. Mild residue seen on the tongue and palate with both solids and liquids, which mostly cleared with cued dry swallows. Pharygneal swallow trigger was delayed, initiated as the bolus head reached the posterior laryngeal surface of the epiglottis. No evidence of nasopharyngeal reflux during this exam. Incomplete laryngeal elevation with partial epiglottic inversion. Reduced tongue base retraction and partial distention through the pharyngoesophageal segment opening contributed to pharyngeal retention. Mild to moderate retention noted on the tongue base, on the posterior pharyngeal wall, and in the valleculae and pyriform sinuses with solids and liquids. Patient was instructed to tuck his chin to trial postural changes for pharyngeal clearance. He was able to hold this position, but stated he could not elicit a dry swallow in this position. Patient was able to reduce pharyngeal residue with cued dry swallows after returning to upright/neutral position. No evidence of aspiration or penetration during this exam. Liquid Intake Recommendation: Thin Liquid Intake Strategies: Small Sips, No Straws Dietary Recommendations: Pureed (NDD1) Medication Administration: NPO Please contact the pharmacy regarding appropriate crushable or liquid drug formulations that are available whenever modified delivery is recommended. Compensatory Strategies Recommended: Sitting Upright (90 deg), Double Swallow, No Straw, Small Bites and Sips, Alternate Liquids/Solids, Rate of Ingestion Change Recommended Treatments: Base of Tongue Exercises, Pharyngeal Resistive Exer, Compens. Strategy Educat. Recommendation for Speech Therapy: Outpatient Speech Therapy Text Comment: Intake Recommendations: Route: PO Diet Grade: Puree Liquid Consistencies: Thin Post-Study Functional Oral Intake Scale (FOIS): 5- Total oral intake of multiple consistencies requiring special preparation This exam revealed mild to moderate oropharyngeal dysphagia. Mildly slowed oral phase. Partial laryngeal elevation with partial epiglottic inversion. No evidence of aspiration or penetration. Mild to moderate residue in the oral and pharyngeal cavities was reduced with multiple dry swallows. Patient complained of pain with chewing of harder solids. Recommend partial PO to supplement tube feeding with PUREED (NDD1) solids and THIN liquids by teaspoon or controlled cup sips. Based on observations made during this exam, patient is able to chew and swallow more advanced solids, but has difficulty managing these textures due to self-reported pain when chewing. Thus, he is recommended softer textures to start. Behavioral strategies are also recommended to maximize safety: -Small portions -Take small bites of food -Dry swallows after each bite to promote clearance -Ensure oral cavity is cleared of residue before taking next bite -Liquids by teaspoon or individual cup sips -Avoid the use of straws -Take one sip at a time -Follow each sip with dry swallows to promote clearance -Maintain upright position during PO intake and for at least 30 minutes afterwards -Daily oral care routine Patient was advised to consult with his G.I. specialist/ dietitian when determining portioning of PO with concurrent tube feeds and to determine if/when patient is meeting adequate nutrition by mouth/ possible PEG tube removal. Recommend continued speech therapy services for further education and support in regards to recommended dietary textures and feeding strategies and to trial pharyngeal exercises. Suggested Referrals: The patient might benefit from a referral to: Gastroenterology, Nutrition Services Therapy Recommendations: Therapy will be continued 1x weekly x 8 weeks The following compensatory strategies and/or therapeutic exercises will be part of the upcoming therapy/management plan: Additional Swallow(s) per Bolus Effortful Swallow Evelyn Maneuver Ana Maneuver Prognosis for Improvement: The prognosis for the patient to meet nutritional needs by mouth is fair based on degree of impairment, stimulability for treatment, level of motivation, support system. Frequency/Duration: 1x weekly x 8 weeks Date Range for Service Requested: Timeline to reassess: PRN Snf Goals: ? The patient will tolerate the least restrictive diet with a safe/efficient swallow to maintain adequate nutrition and hydration. ? The patient will demonstrate improved swallowing function via repeat clinical evaluation, videoendoscopy/videofluoroscopy and/or patient self-rating scores. ? The patient and/or family will participate in further education for swallowing goals. Short Term Goals: ? Diet - The patient will tolerate a pureed diet with thin liquids without signs or symptoms of penetration/aspiration 100% of the time. - The patient will participate in therapeutic PO trials with the DOMESTIC TECHNICIAN. ? Guidelines - The patient will comply with/recall the following guidelines/strategies 100% of the time with no cuing: Bolus Volume Change, Rate of Ingestion Change, Additional Swallow(s) per Bolus, No Straws. ? Independent Home Exercise - The patient will perform 10 repetitions of the Effortful Swallow, Evelyn Maneuver, Shaker Head Lifts, Ana Maneuver 2 times a day with 100% accuracy and no cuing as part of a home exercise program. ? Structured Therapy ? Education - The patient, family will verbalize/demonstrate understanding of the results of this evaluation, the above recommendations, and the swallowing guidelines. Clinician - Supplemental, Miscellaneous Communication: It is important to note MBSS objective studies are snapshots in time and Patient function might vary with factors such as time of day or concomitant medical conditions. For this reason, the final treatment plan for this patient should rest with their medical care team. Additional recommendations should be considered with the totality of the Patient in mind. Thank for the opportunity to participate in the care of this patient. If you have any questions about the content of this report, please contact the [facility] at [facility] [place]. Banking Services Officer Clinician/Clinical Fellow: No Supervisory Statement: N/A Speech Language Pathologist: Mitra Murray M.A., CCC-DOMESTIC TECHNICIAN
== END 2024-04-05 14:15 | disposition home or self-care (01) ==
LOC: HO.XRAY 14:14
PROVIDERS: Absent Provider Urology; PCP Internal Medicine; Visit Provider Hospitalist
DX: R13.10 Dysphagia, unspecified (principal); C09.9 Malignant neoplasm of tonsil, unspecified; E29.1 Testicular hypofunction; N40.0 Benign prostatic hyperplasia without lower urinary tract symptoms; M54.2 Cervicalgia; R05.2 Subacute cough; R04.2 Hemoptysis; Z12.5 Encounter for screening for malignant neoplasm of prostate
CPT/HCPCS: 36415; 74230; 80048; 84153; 84402; 84403; 92611

== ENCOUNTER → 2024-04-05 14:30 | Outpatient (BNV) | payer OTHER, SELFPAY | PROVIDERS: Absent Provider Urology; PCP Internal Medicine; Visit Provider Radiology Diagnostic Radiology | DX: R13.10 Dysphagia, unspecified (principal) | CPT/HCPCS: 74230 ==

== ENCOUNTER 2024-04-25 14:57 | Outpatient (AMB) | payer OTHER, SELFPAY ==
--- NOTE | 2024-04-25 15:06 | MHC.OFFVIS ---
Intake Visit Reasons: Testosterone(set) Intake Note: Patient is Present for Telephone Follow Up labs Urology Med: Sildenafil, Tamsulosin, Testosterone Antibiotic Allergy: None Blood Thinner: None PSA- 04/05/2024- 0.54 Testosterone - 04/05/2024- Total:633 Free: 77.2 Operations General Agent Required: No Accompanied by: Self / Same As Patient Allergies Iodinated Contrast Media [IV Dye, Iodine Containing] Allergy (Intermediate, Verified 04/25/24 15:07) HIVES IV contrast Allergy (Unknown, Uncoded 04/25/24 15:07) rash HPI Comments Details: Wood is a pleasant male. He is seen for the following urologic conditions - hypogonadism - nephrolithiasis - lower urinary tract symptoms Telemedicine Evaluation 15 min Consultation DoxCYBRA Eugenie Video attempted Continue good response to testosterone Undergoing radiation treatment for throat cancer Six month follow-up labs Lower urinary tract symptoms Progressive urinary frequency and urgency Tamsulosin 0.4 mg stone Hypogonadism Longstanding Prior treatment for rectal cancer that involved radiation Current therapy AndroGel 2 pumps daily Laboratories - 01/08 T 480, PSA 0.16, 08/12 T 460 P 0.2, 08/13 T494 PSA 0.34. 01/10 314 60 0.44, 08/14 615 0.5 48, 04/13 T 633 0.5 Nephrolithiasis History of stones Prior ultrasound with simple cysts Imaging - 07/13 renal ultrasound bilateral cysts, 2 mm stone left side Continue with encouragement of lemon hydration therapy Erectile dysfunction Good response to Viagra Continue periodic surveillance [facility] Medical History (Updated 03/15/24 @ 09:13 by Taj Jernigan MD) Dysphagia Bleeding from mouth Tonsillar cancer Neck pain Dyspnea Elevated diaphragm WILIAM (obstructive sleep apnea) Hypogonadism in male Urgency incontinence Renal stones BPH (benign prostatic hyperplasia) Hypogonadism Family History Other CVD (cardiovascular disease) Cancer Pancreatic cancer Social History Patient Tobacco Use Status: Never used Tobacco Review of Systems Const Denies chills and Denies fever(s) Card Reports no additional complaints and Denies syncope Resp Denies cough GI Denies abdominal pain and Denies heartburn Reports as per HPI and Denies change in libido Neuro Denies syncope Psych Denies change in libido Endo Denies change in libido Physical Exam Const General: cooperative, healthy appearing, comfortable and no acute distress Orientation/consciousness: patient oriented x3 HEENT Face and sinus: Yes normal facial exam Mouth: moist mucous membranes Neck Neck: Yes normal visual inspection, Yes full ROM and Yes trachea midline Chest Chest palpation & inspection: normal inspection of the chest Resp Effort & Inspection: normal respiratory effort, able to speak in complete sentences and no respiratory distress GI Inspection: Yes normal to inspection Back/Spine/Pelvis Cervical Spine: normal cervical lordosis Thoracic/Lumbar Spine: thoracic and lumbar spine normal to inspection Skin General skin exam: no rashes or lesions noted Neuro General: patient oriented x3, gait normal, tone normal and moves all extremities Extrem General: Yes normal to inspection and Yes capillary refill normal Telehealth Telehealth Location of provider rendering services: practice address Location of patient: address on file Patient Identification confirmed using: Name, : Yes Telehealth method: video Patient verbally consented to treatment: Yes Patient verbally consented to billing insurance company: Yes Patient informed of any privacy concerns related to visit: Yes Assessment & Plan Assessment & Plan (1) BPH (benign prostatic hyperplasia): Code(s): N40.0 - Benign prostatic hyperplasia without lower urinary tract symptoms Category: Medical (2) Hypogonadism: Category: Medical Plan Six-month follow-up Orders: Orders Prostate Specific Antigen 6 Months E29.1 - Testicular hypofunction Testosterone, Total 6 Months E29.1 - Testicular hypofunction Complete Blood Count no Diff 6 Months E29.1 - Testicular hypofunction Medications: Refilled testosterone apply 2 pumps over max area of EACH upper arm and shoulder 2 pumps topical DAILY 28 days 75 grams 5RF E29.1 - Testicular hypofunction, R79.89 - Other specified abnormal findings of blood chemistry Patient Instructions: Imaging studies, laboratory and physical exam results were discussed and reviewed in detail. No major barriers to patient understanding were identified. An opportunity to ask questions regarding the treatment plan was provided. All questions were answered. The patient expressed understanding and agreement with the above treatment plan. The patient is aware they should contact our office by phone for worsening of their current condition or the appearance of new urologic symptoms. Compliance is encouraged with any medications and followup testing that is ordered. It is a privilege to participate in the urologic care of your patient. If you have any questions or concerns regarding treatment for the above conditions, or other urologic issues, please do not hesitate to contact me. The office telephone contact is [phone]. This note is constructed using voice recognition software. While every effort has been made to ensure accuracy diesel mechanic construction errors may have been included. Yours sincerely, Dr Norman Winter MD, [facility] - Urology Providers of Expert, Compassionate Care for the Genitourinary System Coding Level of Care Code Tele Est Pt Level 3 (05215) Diagnoses BPH (benign prostatic hyperplasia) N40.0 Hypogonadism
--- OUTSIDE RECORDS SUMMARY | 2024-04-25 15:06 | XMS_ITS | Continuity of Care Document ---
Author Organization [facility] Address [address] [place] [address]- Care Team Providers Care [employer] Contact Printer Name Role Phone Magaly BARNARD, Min Blackman Primary Care Physician [phone] Encounter [facility] Date(s): 01/28/24 - 02/27/24 [facility] [address] [place] [address]- Allergies, Adverse Reactions, Alerts Substance Reaction Severity [...] 3Location History: [facility] 4Result Comment: [id number] 5Location History: [facility] 6Location History: [...] tablet, 3 Refills, Maintenance, 09/08/23 14:28:00 EDT, [facility] #[id number], 175, cm, 09/08/23 14:11:00 EDT, Height, 99.4, kg, 03/20/23 21:57:00 EDT,Dry Weight Start Date: 09/08/23 Status: Ordered buPROPion 150 mg/24 hours (XL) oral tablet, extended release 1 tablet = 150 mg, By Mouth, Every 24 hours, # 30 tablet, 11 Refills, Maintenance, 02/15/24 16:58:00 EDT, ER Tablet, [facility] #[id number], Partial fill upon patient request if the prescriptionis for a schedule II opioid drug., 1 tablet By Mout... Start Date: 02/15/24 Status: Ordered FLUoxetine 20 mg oral capsule 20 mg, 1, capsule, By Mouth, Daily, # 90 capsule, Refills 3, Tot. Refills 3, Maintenance, 02/15/24 16:57:00 EDT, Route to Pharmacy Electronically, [facility] #[id number], Partial fill upon patient request if the prescription is for a schedule II... Start Date: 02/15/24 Status: Ordered gemfibrozil 600 mg oral tablet 1, tablet, By Mouth, 2 times a day, # 180 tablet, Refills 3, Tot. Refills 3, Maintenance, 09/08/23 14:28:00 EDT, Route to Pharmacy Electronically, [facility] #[id number], 175, cm, 09/08/23 14:11:00 EDT, Height, 99.4, kg, 03/20/23 21:57:00 EDT, . Start Date: 09/08/23 Status: Ordered losartan 50 mg oral tablet 50 mg, 1, tablet, By Mouth, Daily, # 90 tablet, Refills 3, Tot. Refills 3, Maintenance, 09/08/23 14:28:00 EDT, Route to Pharmacy Electronically, [facility] #[id number], Partial fill upon patientrequest if the prescription is for a schedule II op... Start Date: 09/08/23 Stop Date: 09/02/24 Status: Ordered Metoprolol Succinate ER 50 mg oral tablet, extended release 1 tablet, By Mouth, Daily, # 90 tablet, 3 Refills, Maintenance, 09/08/23 14:28:00 EDT, [facility] #[id number], 175, cm, 09/08/23 14:11:00 EDT, Height, 99.4, [...] 0 Refills, Maintenance, 04/01/23 15:46:00 EDT, Capsule, [facility], Partial fill upon patient request if the prescription is for a schedule II opioid drug., 175, cm, 03/20/23 22... Start Date: 04/01/23 Status: Ordered ZyrTEC 10 mg oral tablet See Instructions, 1 tablet By Mouth [address] scan, # 1 tablet, 0 Refills, Maintenance, 04/01/23 15:33:00 EDT, Tablet, [facility], Partial fill upon patient [...] RN Member Role: Primary Care Nurse Name: Tersea Carey RN Position: S RN Member Role: Primary Care Nurse Name: Sasha Queen RN Position: S RN Member Role: Primary Care Nurse Name: Charleen Neri RN Position: [facility] RN Member Role: Primary Care Nurse Name: Min Mckenzie MD Position: [facility] Physician - Primary Care Member Role: PCP Address: Address: [address] [place] [address]- [place] Name: Vianey Gonzales NP Position: [facility] Associate Professional Member Role: Primary Care Nurse Address: Address: [address] [place] [address] Drive [address] [place] [address]- [place] Name: Felecia Villegas LPN Position: S RN Member Role: Primary Care Nurse Name: Maria C Pearson RN Position: [facility] RN Member Role: Primary Care Nurse Name: Geovanna Kumari RN Position: [facility] RN Member Role: Primary Care Nurse Name: Gloria Dawn RN Position: [facility] RN Member Role: Primary Care Nurse Name: Tali Paul RN Position: [facility] RN Member Role: Primary Care Nurse Name: Alicia Croft RN Position: [facility] RN Member Role: Primary Care Nurse Name: Aicha Lai RN Position: [facility] RN Member Role: Primary Care Nurse Name: Dino Fleming RN Position: [facility] RN Member Role: Primary Care Nurse Name: Luisa Mitchell RN Position: [facility] RN Member Role: Primary Care Nurse Name: Nirav Nicholson RN Position: [facility] RN Member Role: Primary Care Nurse Name: Mara Miranda RN Position: [facility] RN Member Role: Primary Care Nurse Name: Mara Daly RN Position: [facility] ED RN W/OE and Tasks Member Role: Primary Care Nurse Name: Nellie Vivas RN Position: [facility] RN Member Role: Primary Care Nurse Name: Emy Balderas LPN Position: [facility] RN Member Role: Primary Care Nurse Name: Caitlyn Andesron RN Position: [facility] RN Member Role: Primary Care Nurse Name: Lelia Clarke RN Position: [facility] RN Member Role: Primary Care Nurse Care Team Related Persons Name: TACOS VASQUEZ Address: [address] [address]
--- OUTSIDE RECORDS SUMMARY | 2024-04-25 15:06 | XMS_ITS | Continuity of Care Document ---
Author Organization [facility] Aki lt Address [address] [place] [address]- Care Team Providers Care Senior Software Qa Engineer Name Role Phone Min Mckenzie MD Primary Care Physician Encounter [facility] Date(s): 03/14/24 - 03/21/24 [facility] Adult [address] [place] [address]- Attending Physician: Min Mckenzie MD Allergies, Adverse Reactions, Alerts Substance Reaction Severity Status Contrast Dye 1 hives Active 1IODINATED Immunizations Given and Recorded Vaccine Date Status Refusal Reason tetanus-diphtheria toxoids (Td) 03/17/24 Given tetanus-diphtheria toxoids (Td) 02/02/07 Given pneumococcal 20-valent conjugate vaccine 02/04/23 Given SARS-CoV-2 [...] Given Hepatitis A Vaccine (oldterm) 02/02/07 Given 1Location History: [facility] 2Location History: [facility] 3Location History: [facility] 4Result Comment: [id number] 5Location History: [facility] 6Location History: [...] tablet, 3 Refills, Maintenance, 09/08/23 14:28:00 EDT, [facility] #[id number], 175, cm, 09/08/23 14:11:00 EDT, Height, 99.4, kg, 03/20/23 21:57:00 EDT,Dry Weight Start Date: 09/08/23 Status: Ordered buPROPion 150 mg/24 hours (XL) oral tablet, extended release 1 tablet = 150 mg, By Mouth, Every 24 hours, # 30 tablet, 11 Refills, Maintenance, 02/15/24 16:58:00 EDT, ER Tablet, [facility] #[id number], Partial fill upon patient request if the prescriptionis for a schedule II opioid drug., 1 tablet By Mout... Start Date: 02/15/24 Status: Ordered Dexamethasone 0 Refills, Maintenance, 03/14/24 14:16:00 EDT, Partial fill upon patient request if the prescription is for a schedule II opioid drug. Start Date: 03/14/24 Status: Ordered dexamethasone 4 mg oral tablet 2 tablet = 8 mg, By Mouth, Daily, Begin the DAY AFTER chemo. Repeat with each treatment. Take with food, # 18 tablet, 1 Refills, Maintenance, 03/03/24 9:34:00 EDT, Tablet, [facility] #[id number], Partial fill upon patient request if the prescript... Start Date: 03/03/24 Stop Date: 03/09/24 Status: Ordered FLUoxetine 20 mg oral capsule 20 mg, 1, capsule, By Mouth, Daily, # 90 capsule, Refills 3, Tot. Refills 3, Maintenance, 02/15/24 16:57:00 EDT, Route to Pharmacy Electronically, [facility] #[id number], Partial fill upon patient request if the prescription is for a schedule II... Start Date: 02/15/24 Status: Ordered gemfibrozil 600 mg oral tablet 1, tablet, By Mouth, 2 times a day, # 180 tablet, Refills 3, Tot. Refills 3, Maintenance, 09/08/23 14:28:00 EDT, Route to Pharmacy Electronically, [facility] #[id number], 175, cm, 09/08/23 14:11:00 EDT, Height, 99.4, kg, 03/20/23 21:57:00 EDT, Start Date: 09/08/23 Status: Ordered lidocaine-prilocaine 2.5%-2.5% topical cream See Instructions, Apply dime-sized amount over port and cover with plastic, 1 hour before port use,# 30 Gm, 1 Refills, Maintenance, 03/03/24 9:36:00 EDT, [facility] #[id number], Partial fill upon patient request if the prescription is for a sche... Start Date: 03/03/24 Status: Ordered Lomotil 0.025 mg-2.5 mg oral tablet 2, tablet, By Mouth, 4 times a day, PRN, # 50 tablet, Refills 0, Tot. Refills 0, Maintenance, for loose stool, 03/13/24 13:06:00 EDT, Route to Pharmacy Electronically, [facility] #[id number] Tablet, Partial fill upon patient request if the prescr... Start Date: 03/13/24 Status: Ordered losartan 50 mg oral tablet 50 mg, 1, tablet, By Mouth, Daily, # 90 tablet, Refills 3, Tot. Refills 3, Maintenance, 09/08/23 14:28:00 EDT, Route to Pharmacy Electronically, [facility] #[id number], Partial fill upon patientrequest if the prescription is for a schedule II op... Start Date: 09/08/23 Stop Date: 09/02/24 Status: Ordered Metoprolol Succinate ER 50 mg oral tablet, extended release 1 tablet, By Mouth, Daily, # 90 tablet, 3 Refills, Maintenance, 09/08/23 14:28:00 EDT, [facility] #[id number], 175, cm, 09/08/23 14:11:00 EDT, Height, 99.4, kg, 03/20/23 21:57:00 EDT, Dry Weight Start Date: 09/08/23 Status: Ordered Mix: Benadryl Elixir 4 oz, Lidocaine Viscous 2% 100mL, Maalox 8oz Mix: Benadryl Elixir 4 oz, Lidocaine Viscous 2% 100mL, Maalox 8oz, See Instructions, PRN Sore Throat, # 454 mL, Refills 2, Tot. Refills 2, Maintenance, Take 15mL, 5 minutes prior to each meal, up to 4-6x/day, as needed for sore throat, 03/20/24 11:21:... Start Date: 03/20/24 Status: Ordered nitroglycerin 0.4 mg sublingual tablet 1 tablet = 0.4 mg, Sublingual, Every 5 minutes, PRN Chest Pain, not to exceed 3 doses/15 min--if pain persists, seek medical attention Call 911, # 60 tablet, 11 Refills, Maintenance, 11/23/17 11:14:25 EDT Start Date: 11/23/17 Status: Ordered olanzapine 5 mg oral tablet 5 mg, 1, tablet, By Mouth, Daily at bedtime, Begin the night of treatment. Repeat with each treatment, # 12 tablet, Refills 1, Tot. Refills 1, Maintenance, 03/03/24 9:34:00 EDT, Route to Pharmacy Electronically, [facility] #[id number], Partial fi... Start Date: 03/03/24 Stop Date: 03/11/24 Status: Ordered ondansetron 8 mg oral tablet, disintegrating 1 tablet = 8 mg, By Mouth, Every 8 hours, PRN Nausea & Vomiting, # 10 tablet, 1 Refills, Maintenance, 03/03/24 9:34:00 EDT, Tablet, [facility] #[id number], Partial fill upon patient request if the prescription is for a schedule II opioid drug., 1... Start Date: 03/03/24 Status: Ordered pantoprazole 40 mg oral delayed release tablet 1 tablet, By Mouth, Daily, # 90 tablet, 3 Refills, Maintenance, 09/08/23 14:28:00 EDT, 175, cm, 09/08/23 14:11:00 EDT, Height, 99.4, kg, 03/20/23 21:57:00 EDT, Dry Weight Start Date: 09/08/23 Status: Ordered prochlorperazine 5 mg oral tablet 1 or 2 tablets, By Mouth, Every 6 hours, PRN Nausea, # 30 tablet, 1 Refills, Maintenance, 03/03/24 9:34:00 EDT, [facility] #[id number], Partial fill upon patient request if the prescription is for a schedule II opioid drug., 175, cm, 02/24/24 9:2... Start Date: 03/03/24 Status: Ordered Questran 4 gm/9 gm oral powder for reconstitution 1 pack/packet, By Mouth, 2 times a day, dissolve in water or juice, # 60 each, 5 Refills, Maintenance, 03/13/24 13:05:00 EDT, REC Powder, [facility] #[id number], Partial fill upon patient request if the prescription is for a schedule II opioid drDanielle. Start Date: 03/13/24 Status: Ordered saw palmetto 320 mg with phytosterols oral capsule 1 capsule = 320 mg, By Mouth, 2 times a day, # 180 capsule, 0 Refills, Maintenance, 04/01/23 15:46:00 EDT, Capsule, [facility], Partial fill upon patient request if the prescription is for a schedule II opioid drug., 175, cm, 03/20/23 22... Start Date: 04/01/23 Status: Ordered traMADol 50 mg oral tablet 1 tablet = 50 mg, By Mouth, Every 4 hours, PRN as needed for pain, # 20 tablet, 0 Refills, Maintenance, 03/14/24 14:55:00 EDT, Tablet, [facility] #[id number], Partial fill upon patient request if the prescription is for a schedule II opioid drug.... Start Date: 03/14/24 Status: Ordered ZyrTEC 10 mg oral tablet [...] remission Confirmed Active Hypogonadism male Confirmed Active Tonsil cancer Confirmed Active Metatarsalgia of both feet Confirmed Active Obese class I Confirmed Active WILIAM on CPAP Confirmed Active Plantar fasciitis, left Confirmed Active Sleep apnea Confirmed Active 1STAGE 2 angioplasty with atherectomy. 2004 angioplasty with stent 3WITH BLEEDING Vital Signs Most recent to oldest [Reference Range]: 1 Height 175 cm (03/14/24 2:05 PM) Weight 95.1 kg (03/14/24 2:05 PM) Oxygen Saturation [94-100 %] 96 % (03/14/24 2:05 PM) Pulse Rate [55-90 bpm] 75 bpm (03/14/24 2:05 PM) Body Mass Index [18.5-24.99 kg/m2] 31.05 kg/m2 *>HHI* (03/14/24 2:05 PM) Blood Pressure [90-138/55-84 mm Hg] 100/ 55mm Hg (03/14/24 2:05 PM) Mode of Delivery (Oxygen) Room air (03/14/24 2:05 PM) Blood pressure sites Arm, left (03/14/24 2:05 PM) Weight Obtained Via Standing scale (03/14/24 2:05 PM) Social History Social History Type Response Smoking Status Never smoker entered on: 07/12/14 Sex Note * Farzad Kaplan: PERFORM Event Display: Patient Education/Instruction Authored Date: [id number] Ambulatory Adult Visit Summary [facility] Adult [address] [address] Name: MAURO VASQUEZ : 1955?? Visit: 03/14/2024 14:02?? Ambulatory Visit Instructions ?? Your Care Team Primary Care Provider Min Mckenzie MD? This Visit Provider Min Mckenzie MD Your Diagnosis Finger laceration Chronic kidney disease (CKD) CAD (coronary artery disease) Testosterone deficiency GERD (gastroesophageal reflux disease) JULIET (generalized anxiety disorder) History of rectal cancer Hyperlipidemia Hypertension Depression, major, in remission Tonsil cancer Vitals Signs Pulse Rate: 75 bpm Height: 175 cm Systolic Blood Pressure: 100 mm Hg Weight: 95.1 kg Diastolic Blood Pressure: 55 mm Hg Body Mass Index:??31.05 kg/m2??Critical Oxygen Saturation: 96 % Body surface area: 2.15 What to do next Follow-Up Appointments Follow Up with??Min Mckenzie MD When:??In 6 months Where: ?? Future Orders Comprehensive Metabolic Panel - Routine, Once, 09/08/23 14:31:00 EDT, Future Order, [facility], Blood?? Lipid Panel - Routine, Once, 09/08/23 14:32:00 EDT, Future Order, [facility], Blood?? CBC - Routine, Once, 09/08/23 14:32:00 EDT, Future Order, [facility], Blood?? Thyroid Panel - Routine, Once, 09/08/23 14:32:00 EDT, Future Order, [facility], Blood?? CBC - Routine, Once, 09/15/23 14:47:00 EDT, Future Order, [facility], Blood?? Medications The list below reflects the information in our records and provided by you today along with any changes made during this visit. Please continue your medications until treatment is completed or stopped by your provider. If this is different from the information you have or there are other questions,please contact the prescribing provider. What How Much When Instructions New Tramadol (traMADol 50 mg oral tablet) 1 tab(s) Oral Every 4 hours as needed for as needed for pain Pickup at [facility] #[id number] Unchanged Aspirin 81 Milligram Oral Daily Unchanged Atorvastatin (atorvastatin 40 mg oral tablet) 1 tab(s) Oral Daily at Bedtime Unchanged Atropine / Diphenoxylate (Lomotil 0.025 mg-2.5 mg oral tablet) 2 tab(s) Oral 4 times a day as needed for for loose stool Unchanged BuPROpion (buPROPion 150 mg/ 24 hours (XL) oral tablet, extended release) 1 tab(s) Oral Every 24 hours Unchanged Cetirizine (ZyrTEC 10 mg oral tablet) See instructions 1 tablet By Mouth [address] scan ?? Unchanged Cholestyramine (Questran 4 gm/ 9 gm oral powder for reconstitution) 1 pack/packet Oral Twice a day dissolve in water or juice ?? Unchanged Dexamethasone Unchanged Dexamethasone (dexamethasone 4 mg oral tablet) 2 tab(s) Oral Daily Duration: 3 Days Begin the DAY AFTER chemo. Repeat with each treatment. Take with food ?? Unchanged Durable Medical Equipment (Adult size disposable underwear/ pull-on medium) See instructions use 3-6 times per day. ?? Dx: incontenence for lifetime. ?? Unchanged Fluoxetine (FLUoxetine 20 mg oral capsule) 1 capsule Oral Daily Unchanged Gemfibrozil (gemfibrozil 600 mg oral tablet) 1 tab(s) Oral Twice a day Unchanged Lidocaine/ Prilocaine Topical (lidocaine-prilocaine 2.5%-2.5% topical cream) See instructions Apply dime-sized amount over port and cover with plastic, 1 hour before port use ?? Unchanged Losartan (losartan 50 mg oral tablet) 1 tab(s) Oral Daily Duration: 90 Days Unchanged Metoprolol (Metoprolol Succinate ER 50 mg oral tablet, extended release) 1 tab(s) Oral Daily Unchanged Nitroglycerin (nitroglycerin 0.4 mg sublingual tablet) 1 tab(s) Sublingual Every 5 minutes as needed for Chest Pain not to exceed 3 doses/ 15 min--if pain persists, seek medical attention Call 911 ?? Unchanged Olanzapine (olanzapine 5 mg oral tablet) 1 tab(s) Oral Daily at Bedtime Duration: 4 Days Begin the night of treatment. Repeat with each treatment ?? Unchanged Ondansetron (ondansetron 8 mg oral tablet, disintegrating) 1 tab(s) Oral Every 8 hours as needed for Nausea & Vomiting Unchanged Pantoprazole (pantoprazole 40 mg oral delayed release tablet) 1 tab(s) Oral Daily Unchanged PROCHLORperazine (prochlorperazine 5 mg oral tablet) 1 or 2 tablets Oral Every 6 hours as needed for Nausea Unchanged Saw [place] (saw palmetto 320 mg with phytosterols oral capsule) 1 capsule Oral Twice a day Unchanged Testosterone (AndroGel 40.5 mg (1.62%) transdermal gel) 2 pack/packet Topically Daily in the morning Pharmacy Information [facility] #[id number]: [address], [place] [id number] [phone] Medications and Immunizations Administered Medications Given During Visit No medications given during this visit.?? Allergies (NKA means No Known Allergies) Contrast Dye??(hives) Common Emergency Awareness Tips IS IT A [...] are strongly encouraged to quit. Please call [facility] at [phone] or [phone]-[employer] ([phone]) or log in to [email or web address] for referrals to smoking cessation programs. ?? The National Suicide Prevention Hotline is available 11/01 if you or someone you know needs to find a reason to keep living. By calling 3-221-731-[employer] (6798) you'll be connected to a skilled, trained counselor at a crisis center in your area. [facility] Portal You can view and manage your care through the patient portal or by using a health care alex of your choosing. [employer] is a website that allows you to securely view your medical information including your hospital discharge summary, office visit summaries, medications and follow-up visits. You can also request appointments, renew medications, and request access to your medical information using a health care alex of your choosing, or just ask a question. You can enroll at [email or web address] or register during your next office visit. [facility], in keeping with [facility] guidance, no longer requires face masks [...] medical provider or home test kit. ?? Disclaimer: The information provided is of a general nature and is intended to be used in conjunction with the recommendations and advice of your health care practitioner. Every effort has been made to ensure that the information provided is accurate and complete at the time it is provided to you however, as your needs change, or, as new information becomes available, different or additional instructions may be required. ?? If you have questions, please consult with your primary care provider or pharmacist, as appropriate. This information is not intended to serve as substitution for assessment and evaluation by a qualified health care provider. If you do not have a primary care provider, you may find a [facility] provider by calling [facility] at [phone]. Patient Care team information Care Team Personnel Name: Dawna Oshea RN Position: [facility] RN Member Role: Primary Care Nurse Name: Teresa Carey RN Position: S RN Member Role: Primary Care Nurse Name: Sasha Queen RN Position: S RN Member Role: Primary Care Nurse Name: Charleen Neri RN Position: [facility] RN Member Role: Primary Care Nurse Name: Min Mckenzie MD Position: [facility] Physician - Primary Care Member Role: PCP Address: Address: [address] [place] [address]- [place] Name: Vianey Gonzales NP Position: [facility] Associate Professional Member Role: Primary Care Nurse Address: Address: [address] [place] [address] [address] [place] [address]- [place] Name: Felecia Villegas LPN Position: [facility] RN Member Role: Primary Care Nurse Name: Maria C Pearson RN Position: [facility] RN Member Role: Primary Care Nurse Name: Geovanna Kumari RN Position: [facility] RN Member Role: Primary Care Nurse Name: Gloria Dawn RN Position: [facility] RN Member Role: Primary Care Nurse Name: Tali Paul RN Position: [facility] RN Member Role: Primary Care Nurse Name: Alicia Croft RN Position: [facility] RN Member Role: Primary Care Nurse Name: Aicha Lia RN Position: [facility] RN Member Role: Primary Care Nurse Name: Dino Fleming RN Position: [facility] RN Member Role: Primary Care Nurse Name: Luisa Mitchell RN Position: [facility] RN Member Role: Primary Care Nurse Name: Nirav Nicholson RN Position: [facility] RN Member Role: Primary Care Nurse Name: Alisha Oswald CRNA Position: [facility] SN RN Member Role: Primary Care Nurse Address: Address: [address] [place] [address]- [place] Name: Mara Miranda RN Position: [facility] RN Member Role: Primary Care Nurse Name: Mara Daly RN Position: [facility] ED RN W/OE and Tasks Member Role: Primary Care Nurse Name: Vinita Andersen RN Position: [facility] Onco RN Member Role: Primary Care Nurse Name: Nellie Vivas RN Position: [facility] RN Member Role: Primary Care Nurse Name: Emy Balderas LPN Position: [facility] RN Member Role: Primary Care Nurse Name: Caitlyn Anderson RN Position: [facility] RN Member Role: Primary Care Nurse Name: Lelia Clarke RN Position: [facility] RN Member Role: Primary Care Nurse Care Team Related Persons Name: TACOS VASQUEZ Address: [address] [address]
--- OUTSIDE RECORDS SUMMARY | 2024-04-25 15:07 | XMS_ITS | Continuity of Care Document ---
Author Organization [facility] [place] Aki lt Address [address] [place] [address]- Care Team Providers Care Public Relations Officer Name Role Phone Magaly BARNARD, Min Blackman Primary Care Physician [facility] Date[facility]24 - 03/15/24 [facility] Jorge Alanley Adult [address] [place] [address]- Allergies, Adverse Reactions, Alerts Substance Reaction Severity [...] 3Location History: [facility] 4Result Comment: [id number] 5Location History: [facility] 6Location History: [...] tablet, 3 Refills, Maintenance, 09/08/23 14:28:00 EDT, [facility] #[id number], 175, cm, 09/08/23 14:11:00 EDT, Height, 99.4, kg, 03/20/23 21:57:00 EDT,Dry Weight Start Date: 09/08/23 Status: Ordered buPROPion 150 mg/24 hours (XL) oral tablet, extended release 1 tablet = 150 mg, By Mouth, Every 24 hours, # 30 tablet, 11 Refills, Maintenance, 02/15/24 16:58:00 EDT, ER Tablet, [facility] #[id number], Partial fill upon patient request if the [...] 1 Refills, Maintenance, 03/03/24 9:34:00 EDT, Tablet, [facility] #[id number], Partial fill upon patient request if the prescript... Start Date: 03/03/24 Stop Date: 03/09/24 Status: Ordered FLUoxetine 20 mg oral capsule 20 mg, 1, capsule, By Mouth, Daily, # 90 capsule, Refills 3, Tot. Refills 3, Maintenance, 02/15/24 16:57:00 EDT, Route to Pharmacy Electronically, [facility] #[id number], Partial fill upon patient request if the prescription is for a schedule II... Start Date: 02/15/24 Status: Ordered gemfibrozil 600 mg oral tablet 1, tablet, By Mouth, 2 times a day, # 180 tablet, Refills 3, Tot. Refills 3, Maintenance, 09/08/23 14:28:00 EDT, Route to Pharmacy Electronically, [facility] #[id number], 175, cm, 09/08/23 14:11:00 EDT, Height, 99.4, kg, 03/20/23 21:57:00 EDT, Start Date: 09/08/23 Status: Ordered lidocaine-prilocaine 2.5%-2.5% topical cream See Instructions, Apply dime-sized amount over port and cover with plastic, 1 hour before port use,# 30 Gm, 1 Refills, Maintenance, 03/03/24 9:36:00 EDT, [facility] #[id number], Partial fill upon patient request if the prescription is for a sche... Start Date: 03/03/24 Status: Ordered Lomotil 0.025 mg-2.5 mg oral tablet 2, tablet, By Mouth, 4 times a day, PRN, # 50 tablet, Refills 0, Tot. Refills 0, Maintenance, for loose stool, 03/13/24 13:06:00 EDT, Route to Pharmacy Electronically, [facility] #[id number] Tablet, Partial fill upon patient request if the prescr... Start Date: 03/13/24 Status: Ordered losartan 50 mg oral tablet 50 mg, 1, tablet, By Mouth, Daily, # 90 tablet, Refills 3, Tot. Refills 3, Maintenance, 09/08/23 14:28:00 EDT, Route to Pharmacy Electronically, [facility] #[id number], Partial fill upon patientrequest if the prescription is for a schedule II op... Start Date: 09/08/23 Stop Date: 09/02/24 Status: Ordered Metoprolol Succinate ER 50 mg oral tablet, extended release 1 tablet, By Mouth, Daily, # 90 tablet, 3 Refills, Maintenance, 09/08/23 14:28:00 EDT, [facility] #[id number], 175, cm, 09/08/23 14:11:00 EDT, Height, 99.4, [...] 03/03/24 9:34:00 EDT, Route to Pharmacy Electronically, [facility] #[id number], Partial fi... Start Date: 03/03/24 Stop Date: 03/11/24 Status: Ordered ondansetron 8 mg oral tablet, disintegrating 1 tablet = 8 mg, By Mouth, Every 8 hours, PRN Nausea & Vomiting, # 10 tablet, 1 Refills, Maintenance, 03/03/24 9:34:00 EDT, Tablet, [facility] #[id number], Partial fill upon patient request if the [...] tablet, 1 Refills, Maintenance, 03/03/24 9:34:00 EDT, [facility] #[id number], Partial fill upon patient request if the prescription is for a schedule II opioid drug., 175, cm, 02/24/24 9:2... Start Date: 03/03/24 Status: Ordered Questran 4 gm/9 gm oral powder for reconstitution 1 pack/packet, By Mouth, 2 times a day, dissolve in water or juice, # 60 each, 5 Refills, Maintenance, 03/13/24 13:05:00 EDT, REC Powder, [facility] #[id number], Partial fill upon patient request if the prescription is for a schedule II opioid dr... Start Date: 03/13/24 Status: Ordered saw palmetto 320 mg with phytosterols oral capsule 1 capsule = 320 mg, By Mouth, 2 times a day, # 180 capsule, 0 Refills, Maintenance, 04/01/23 15:46:00 EDT, Capsule, [facility], Partial fill upon patient request if the prescription is for a schedule II opioid drug., 175, cm, 03/20/23 22... Start Date: 04/01/23 Status: Ordered traMADol 50 mg oral tablet 1 tablet = 50 mg, By Mouth, Every 4 hours, PRN as needed for pain, # 20 tablet, 0 Refills, Maintenance, 03/14/24 14:55:00 EDT, Tablet, [facility] #[id number], Partial fill upon patient request if the prescription is for a schedule II opioid drug.... Start Date: 03/14/24 Status: Ordered ZyrTEC 10 mg oral tablet See Instructions, 1 tablet By Mouth [address] scan, # 1 tablet, 0 Refills, Maintenance, 04/01/23 15:33:00 EDT, Tablet, [facility], Partial fill upon patient request [...] Active Sleep apnea Confirmed Active 1STAGE 2 23351 angioplasty with atherectomy. 2004 angioplasty with stent 3WITH BLEEDING Social History Social History Type Response Smoking Status Never smoker entered on: 07/12/14 Sex Patient Care team information Care Team Personnel Name: Dawna Oshea RN Position: [facility] RN Member Role: Primary Care Nurse Name: Teresa Carey RN Position: [facility] RN Member Role: Primary Care Nurse Name: Sasha Queen RN Position: [facility] RN Member Role: Primary Care Nurse Name: Charleen Neri RN Position: [facility] RN Member Role: Primary Care Nurse Name: Min Mckenzie MD Position: S Physician - Primary Care Member Role: PCP Address: Address: [address] [place] [address]- [place] Name: Vianey Gonzales NP Position: [facility] Associate Professional Member Role: Primary Care Nurse Address: Address: [address] [place] [address] [place] [address]- [place] Name: Felecia Villegas LPN Position: [facility] RN Member Role: Primary Care Nurse Name: Maria C Pearson RN Position: [facility] RN Member Role: Primary Care Nurse Name: Geovanna Kumari RN Position: [facility] RN Member Role: Primary Care Nurse Name: Gloria Dawn RN Position: [facility] RN Member Role: Primary Care Nurse Name: Tali Paul RN Position: [facility] RN Member Role: Primary Care Nurse Name: Alicia Croft RN Position: [facility] RN Member Role: Primary Care Nurse Name: Aicha Lai RN Position: [facility] RN Member Role: Primary Care Nurse Name: Dino Fleming RN Position: [facility] RN Member Role: Primary Care Nurse Name: Luisa Mitchell RN Position: [facility] RN Member Role: Primary Care Nurse Name: Nirav Nicholson RN Position: [facility] RN Member Role: Primary Care Nurse Name: Alisha Oswald CRNA Position: [facility] SN RN Member Role: Primary Care Nurse Address: Address: [address] [place] [id number] Name: Mara Miranda RN Position: [facility] RN Member Role: Primary Care Nurse Name: Mara Dlay RN Position: [facility] ED RN W/OE and Tasks Member Role: Primary Care Nurse Name: Vinita Andersen RN Position: [facility] Onco RN Member Role: Primary Care Nurse Name: Nellie Vivas RN Position: [facility] RN Member Role: Primary Care Nurse Name: Emy Balderas LPN Position: [facility] RN Member Role: Primary Care Nurse Name: Caitlyn Anderson RN Position: [facility] RN Member Role: Primary Care Nurse Name: Lelia Clarke RN Position: [facility] RN Member Role: Primary Care Nurse Care Team Related Persons Name: TACOS VASQUEZ Address: [address] [address]
--- OUTSIDE RECORDS SUMMARY | 2024-04-25 15:09 | XMS_ITS | Continuity of Care Document ---
Author Organization [facility] ter Address [address] [place] [address]- Care Team Providers Care Powertrain Design Engineer Name Role Phone Min Mckenzie MD Primary Care Physician [phone] Encounter 02/10/24 - 02/11/[address] [address] Attending Physician: Not on Staff, Attending MD Referring Physician: Not on Staff, Referring [...] 3Location History: [facility] 4Result Comment: [id number] 5Location History: [facility] 6Location History: [...] tablet, 3 Refills, Maintenance, 09/08/23 14:28:00 EDT, [facility] #[id number], 175, cm, 09/08/23 14:11:00 EDT, Height, 99.4, kg, 03/20/23 21:57:00 EDT,Dry Weight Start Date: 09/08/23 Status: Ordered FLUoxetine 40 mg oral capsule 1 capsule = 40 mg, By Mouth, Daily, # 90 capsule, 3 Refills, Maintenance, 02/04/24 9:14:00 EDT, Capsule, [facility] #[id number], Partial fill upon patient request if the prescription is for a schedule II opioid drug., 175, cm, 09/08/23 14:11:00 E... Start Date: 02/04/24 Status: Ordered gemfibrozil 600 mg oral tablet 1, tablet, By Mouth, 2 times a day, # 180 tablet, Refills 3, Tot. Refills 3, Maintenance, 09/08/23 14:28:00 EDT, Route to Pharmacy Electronically, [facility] #[id number], 175, cm, 09/08/23 14:11:00 EDT, Height, 99.4, kg, 03/20/23 21:57:00 EDT, Start Date: 09/08/23 Status: Ordered losartan 50 mg oral tablet 50 mg, 1, tablet, By Mouth, Daily, # 90 tablet, Refills 3, Tot. Refills 3, Maintenance, 09/08/23 14:28:00 EDT, Route to Pharmacy Electronically, [facility] #[id number], Partial fill upon patientrequest if the prescription is for a schedule II op... Start Date: 09/08/23 Stop Date: 09/02/24 Status: Ordered Metoprolol Succinate ER 50 mg oral tablet, extended release 1 tablet, By Mouth, Daily, # 90 tablet, 3 Refills, Maintenance, 09/08/23 14:28:00 EDT, [facility] #[id number], 175, cm, 09/08/23 14:11:00 EDT, Height, 99.4, [...] 0 Refills, Maintenance, 04/01/23 15:46:00 EDT, Capsule, [facility], Partial fill upon patient request if the prescription is for a schedule II opioid drug., 175, cm, 03/20/23 22... Start Date: 04/01/23 Status: Ordered ZyrTEC 10 mg oral tablet See Instructions, 1 tablet By Mouth [address] scan, # 1 tablet, 0 Refills, Maintenance, 04/01/23 15:33:00 EDT, Tablet, [facility], Partial fill upon patient [...] 2004 angioplasty with stent 3WITH BLEEDING Results Radiology Reports * Exam Date Time Procedure Performing Provider Status 02/10/24 8:[address] PET Modified Notes: (CT PET) Reason For Exam: oropharynx cancer;oropharynx cancer RESULT: CT PET [facility] PET/CT Imaging VISIT NUMBER :[id number] Patient Name: Wood Rios Date of : 1955 Date of Exam: 02-10-2024 Referring Physician: Caitlyn Junior [facility] [address], [facility] [address] [place] [address] Exam: PT Skull Base to Mid Thigh CPT 05824 Room Description: [facility] Pt4 PET/CT History: Oropharynx carcinoma. Comparison: Outside images not available at this time. CT abdomen and pelvis with contrast 04/22/2023. PET technique: Beginning approximately 60 minutes following the intravenous administration of 13 mCi of F-18 fluorodeoxyglucose in the right antecubital fossa, emission images were obtained from the skull base to the mid thighs. Following this CT was obtained at the same levels without IV or oral contrast with the patient maintaining quiet breathing. Following attenuation correction using the CT images, axial sagittal and coronal images were reconstructed. SUV values normalized by body mass. The blood glucose at the time of injection was 105 mg/dL. Findings: Internal Reference Values: Ascending aortic blood pool: SUV mean 1.8, SUV max 2.2. Right hepatic lobe: SUV mean 2.4, SUV max 3. Head/neck: Intensely avid left oropharyngeal wall lesion extending to the left palatine tonsil measuring up to 2.1 cm, SUV max 15 image 41. Multiple mildly avid adjacent level 2 cervical lymph nodes. For example a level 2A lymph node measuring up to 1.2 cm, SUV max 3.1, image 42. More inferiorly there are mildly avid cervical lymph nodes measuring up to 0.9 cm, SUV max 5.6, image 44. Chest: Mild bibasilar atelectasis. Small pulmonary cyst at the left lung base. No pleural or pericardial effusion. Heavy coronary artery calcification. No enlarged or FDG-avid supraclavicular, mediastinal, hilar, or axillary lymph nodes. Abdomen/pelvis: Postsurgical changes from prior colonic anastomosis in the pelvis and small bowel anastomosis in the right lower quadrant. Hepatic steatosis. The spleen, pancreas, and adrenals appear normal. Right renal cysts, better characterized on the recent CT. Left renal cyst. No ascites. No enlarged or FDG-avid lymph nodes in the abdomen or pelvis. Small fat-containing inguinal hernias. Osseous structures: No focal avid bony lesion. Small degenerative changes of the visualized spine. Sclerotic focus at T11, nonspecific. Impression: 1. Intensely avid oropharyngeal lesion extending to the right palantine tonsil measuring up to 2.1 cm, consistent with primary neoplasm. 2. Multiple mildly avid left level 2 cervical lymph nodes, consistent with metastasis. 3. No other evidence of FDG avid distant metastatic disease in the chest, abdomen, or pelvis. Electronically Signed By: Suzanne Osorio MD Dictated By: Not on Staff , ALEJANDRO BARNARD Dictated Date/Time: 02/10/24 9:13 am Reviewed By: Not on Staff , ALEJANDRO BARNARD Signed By: Not on Staff , ALEJANDRO BARNARD Signed Date/Time: 02/10/24 9:13 am Transcribed By: GERSON Transcribed Date/Time: 02/10/24 9:13 am Social History Social History Type Response Smoking Status Never smoker entered on: 07/12/14 Sex Patient Care team information Care Team Personnel Name: Dawna Oshea RN Position: [facility] RN Member Role: Primary Care Nurse Name: Teresa Carey RN Position: S RN Member Role: Primary Care Nurse Name: Sasha Queen RN Position: [facility] RN Member Role: Primary Care Nurse Name: Charleen Neri RN Position: [facility] RN Member Role: Primary Care Nurse Name: Min Mckenzie MD Position: [facility] Physician - Primary Care Member Role: PCP Address: Address: [address] [place] [address]- Name: Vianey Gonzales NP Position: [facility] Associate Professional Member Role: Primary Care Nurse Address: Address: [address] [place] [address] Trauma [place] [address]- Name: Felecia Villegas LPN Position: [facility] RN Member Role: Primary Care Nurse Name: Maria C Pearson RN Position: S RN Member Role: Primary Care Nurse Name: Geovanna Kumari RN Position: [facility] RN Member Role: Primary Care Nurse Name: Gloria Dawn RN Position: [facility] RN Member Role: Primary Care Nurse Name: Tali Paul RN Position: [facility] RN Member Role: Primary Care Nurse Name: Alicia Croft RN Position: [facility] RN Member Role: Primary Care Nurse Name: Aicha Lai RN Position: [facility] RN Member Role: Primary Care Nurse Name: Dino Fleming RN Position: [facility] RN Member Role: Primary Care Nurse Name: Luisa Mitchell RN Position: S RN Member Role: Primary Care Nurse Name: Nirav Nicholson RN Position: [facility] RN Member Role: Primary Care Nurse Name: Mara Miranda RN Position: S RN Member Role: Primary Care Nurse Name: Mara Daly RN Position: [facility] ED RN W/OE and Tasks Member Role: Primary Care Nurse Name: Nellie Vivas RN Position: [facility] RN Member Role: Primary Care Nurse Name: Emy Balderas LPN Position: [facility] RN Member Role: Primary Care Nurse Name: Caitlyn Anderson RN Position: [facility] RN Member Role: Primary Care Nurse Name: Lelia Clarke RN Position: [facility] RN Member Role: Primary Care Nurse Care Team Related Persons Name: PEDRO TACOS Address: [address] [address]
--- OUTSIDE RECORDS SUMMARY | 2024-04-25 15:09 | XMS_ITS | Continuity of Care Document ---
Author Organization [facility] Address [address] [place] [address]- Care Team Providers Care Boot Lace Cutter Machine Name Role Phone Magaly BARNARD, Min Blackman Primary Care Physician [facility]): [facility]24 - 03/02/24 [facility] [address] [place], [place] [address] Attending Physician: Pippa Argueta Admitting Physician: Pippa Argueta Referring Physician: AdmtrPippa Allergies, Adverse Reactions, Alerts Substance Reaction Severity [...] 3Location History: [facility] 4Result Comment: [id number] 5Location History: [facility] 6Location History: [...] tablet, 3 Refills, Maintenance, 09/08/23 14:28:00 EDT, [facility] #[id number], 175, cm, 09/08/23 14:11:00 EDT, Height, 99.4, kg, 03/20/23 21:57:00 EDT,Dry Weight Start Date: 09/08/23 Status: Ordered buPROPion 150 mg/24 hours (XL) oral tablet, extended release 1 tablet = 150 mg, By Mouth, Every 24 hours, # 30 tablet, 11 Refills, Maintenance, 02/15/24 16:58:00 EDT, ER Tablet, [facility] #[id number], Partial fill upon patient request if the prescriptionis for a schedule II opioid drug., 1 tablet By Mout... Start Date: 02/15/24 Status: Ordered FLUoxetine 20 mg oral capsule 20 mg, 1, capsule, By Mouth, Daily, # 90 capsule, Refills 3, Tot. Refills 3, Maintenance, 02/15/24 16:57:00 EDT, Route to Pharmacy Electronically, [facility] #[id number], Partial fill upon patient request if the prescription is for a schedule II... Start Date: 02/15/24 Status: Ordered gemfibrozil 600 mg oral tablet 1, tablet, By Mouth, 2 times a day, # 180 tablet, Refills 3, Tot. Refills 3, Maintenance, 09/08/23 14:28:00 EDT, Route to Pharmacy Electronically, [facility] #[id number], 175, cm, 09/08/23 14:11:00 EDT, Height, 99.4, kg, 03/20/23 21:57:00 EDT, Start Date: 09/08/23 Status: Ordered losartan 50 mg oral tablet 50 mg, 1, tablet, By Mouth, Daily, # 90 tablet, Refills 3, Tot. Refills 3, Maintenance, 09/08/23 14:28:00 EDT, Route to Pharmacy Electronically, [facility] #[id number], Partial fill upon patientrequest if the prescription is for a schedule II op... Start Date: 09/08/23 Stop Date: 09/02/24 Status: Ordered Metoprolol Succinate ER 50 mg oral tablet, extended release 1 tablet, By Mouth, Daily, # 90 tablet, 3 Refills, Maintenance, 09/08/23 14:28:00 EDT, [facility] #[id number], 175, cm, 09/08/23 14:11:00 EDT, Height, 99.4, [...] 0 Refills, Maintenance, 04/01/23 15:46:00 EDT, Capsule, [facility], Partial fill upon patient request if the prescription is for a schedule II opioid drug., 175, cm, 03/20/23 22... Start Date: 04/01/23 Status: Ordered ZyrTEC 10 mg oral tablet See Instructions, 1 tablet By Mouth [address] scan, # 1 tablet, 0 Refills, Maintenance, 04/01/23 15:33:00 EDT, Tablet, [facility], Partial fill upon patient [...] Team Personnel Name: Dawna Oshea RN Position: [facility] RN Member Role: Primary Care Nurse Name: Teresa Carey RN Position: [facility] RN Member Role: Primary Care Nurse Name: Sasha Queen RN Position: [facility] RN Member Role: Primary Care Nurse Name: Charleen Neri RN Position: [facility] RN Member Role: Primary Care Nurse Name: Min Mckenzie MD Position: [facility] Physician - Primary Care Member Role: PCP Address: Address: [address] [place] [address]- [place] Name: Vianey Gonzales NP Position: [facility] Associate Professional Member Role: Primary Care Nurse Address: Address: [address] [place] [address] Drive [address] [place] [address]- [place] Name: Felecia Villegas LPN Position: [facility] RN Member Role: Primary Care Nurse Name: Maria C Pearson RN Position: [facility] RN Member Role: Primary Care Nurse Name: Geovanna Kumari RN Position: [facility] RN Member Role: Primary Care Nurse Name: Gloria Dawn RN Position: [facility] RN Member Role: Primary Care Nurse Name: Tali Paul RN Position: [facility] RN Member Role: Primary Care Nurse Name: Alicia Croft RN Position: [facility] RN Member Role: Primary Care Nurse Name: Aicha Lai RN Position: [facility] RN Member Role: Primary Care Nurse Name: Dino Fleming RN Position: [facility] RN Member Role: Primary Care Nurse Name: Luisa Mitchell RN Position: [facility] RN Member Role: Primary Care Nurse Name: Nirav Nicholson RN Position: [facility] RN Member Role: Primary Care Nurse Name: Mara Miranda RN Position: [facility] RN Member Role: Primary Care Nurse Name: Mara Daly RN Position: [facility] ED RN W/OE and Tasks Member Role: Primary Care Nurse Name: Nellie Vivas RN Position: [facility] RN Member Role: Primary Care Nurse Name: Emy Balderas LPN Position: [facility] RN Member Role: Primary Care Nurse Name: Caitlyn Anderson RN Position: [facility] RN Member Role: Primary Care Nurse Name: Lelia Clarke RN Position: [facility] RN Member Role: Primary Care Nurse Care Team Related Persons Name: TACOS VASQUEZ Address: home [address] [facility] [place] [facility] [place] [address]
--- OUTSIDE RECORDS SUMMARY | 2024-04-25 15:10 | XMS_ITS | Patient Health Record ---
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 [employer] Claims [address] [place] [id number] Wood Rios Self - patient is the insured MEDICAL (GENERAL) HISTORY Medical History History ICD Code Cancer Depression Heart disease High blood pressure Kidney disease Reflux ( GERD) Surgical History Surgery Date(Month/Year) cancer surgery 2013
== END 2024-04-25 15:20 | disposition home or self-care (01) ==
LOC: HO.HUSH 14:57
PROVIDERS: PCP Internal Medicine; Visit Provider Urology
DX: N40.0 Benign prostatic hyperplasia without lower urinary tract symptoms (principal)
CPT/HCPCS: 99213

== ENCOUNTER 2024-05-05 13:38 | Outpatient (AMB) | payer OTHER, SELFPAY ==
[2024-05-05 13:45] VITALS: BP 124/60; PULSE 92; O2SAT 96; BMI 26.0
--- NOTE | 2024-05-05 13:45 | A.OFFVIS_ITS ---
Vital Signs 05/05/24 13:45 Height 5 ft 9 in Weight 176 lb 5.917 oz BMI 26.0 BP 124/60 Blood Pressure Location Rt brachial Position Sitting Pulse 92 Pulse Oximetry (%) 96 Oxygen Delivery Method Room Air Intake Visit Reasons: CPAP Mask Bronc Buster Required: No Regional Transfer Liaison: Regional Transfer Liaison offered & declined Accompanied by: Spouse Allergies Iodinated Contrast Media [IV Dye, Iodine Containing] Allergy (Intermediate, Verified 05/05/24 13:47) HIVES IV contrast Allergy (Unknown, Uncoded 05/05/24 13:47) rash Medication List - Last Reconciled 05/05/24 by Katelin Singer LPN albuterol sulfate 90 mcg/actuation 2 inhalations inhalation Q6H PRN 30 days amoxicillin-pot clavulanate 875-125 mg 1 tab PO BID 10 days atorvastatin 40 mg PO BEDTIME buspirone 5 mg PO BID CPAP (CPAP Machine/Device) As directed fluoxetine 20 mg PO DAILY gemfibrozil 600 mg PO BID hydrochlorothiazide 12.5 mg PO DAILY lisinopril 20 mg PO DAILY losartan 50 mg PO DAILY Magic Mouthwash Diphen/Lido/Antacid 1:1:1 5 mL PO BID PRN 30 days magnesium oxide 400 mg PO DAILY metoprolol succinate ER 50 mg PO DAILY pantoprazole 40 mg PO DAILY prednisone PO daily; Take 2 tabs daily x 7 days, then 1 tab daily x 7 days 14 days sildenafil 100 mg PO DAILY PRN 30 days tamsulosin 0.4 mg PO BEDTIME 30 days testosterone 2 pumps topical DAILY 28 days tizanidine 2 mg PO BEDTIME venlafaxine ER 37.5 mg PO DAILY HPI Comments Details: The patient is a 68-year-old gentleman with a known history of sleep apnea on CPAP for many years. He has had up to 3 machines. The therapy has been affe cting beneficial. He does use a fullface mask and this is comfortable for him. He does use it for more than 4 hours a night. He was previously getting it through [employer]. Will go ahead and request a download from his [employer] company, [employer] and will send a prescription also for supplies. The patient does complaint of some dyspnea on exertion. Usually when going up a flight as stairs or up at incline in the [id number] severity. We did review his last chest x-ray that was from December 2021 done at [facility]. It appears that he has a moderately elevated right hemidiaphragm resulting in some atelectasis in that area. The x-ray was not compare to there is no history. On further questioning he did have a serious accident with on a heavy machinery where he injured that lower chest area with the machinery. This could be secondary to that. Although is not clear at this moment. Will go ahead and request the chest x-ray. If is still unclear of for looks worse than before we can also consider getting a CAT scan some PFTs. 12/30/2022 the patient is here for a pulmonary follow-up visit. Since we last spoke the patient states that he has been having some hemoptysis. Has been happening for the last few months. It started to settle down. He has not seen as frequent episodes in the blood appears to be darker. It is typically mixed in with saliva. Denies any epistaxis. He was evaluated by his primary care doctor initially with a chest x-ray and subsequently with a CT scan of the chest done at [facility]. I personally viewed. Again, he has the right hemidiaphragm elevated likely secondary to trauma. He does have atelectasis in that area. Difficult to assess that area since is abnormal. No other findings of any parenchymal disease or alveolar hemorrhage. Explained to him that the most common reason for coughing up blood is bronchitis. It could also be a posterior nasopharynx bleeding episode that is not resulting in any significant epistaxis. Either way will go ahead and treat him with doxycycline for the possibility of a smoldering respiratory infection causing some bleeding. However, if the patient is no better and continues having the blood or if he gets worse will go ahead and plan for bronchoscopy to better address the airways. The patient has been using his CPAP. I did download the machine. His AHI is down 0.7. He does use it about 9 hours a night. The therapy has been affecting beneficial. He is to continue using it as prescribed. He was asking about the hypoglossal nerve stimulator. I do not advise it for him. At this point the patient will follow-up in 2-3 months or sooner if he starts developing worsening hemoptysis again plan for bronchoscopy. 03/17/2023 the patient is here for a pulmonary sick visit. Apparently he was hospitalized recently after developing severe abdominal discomfort and found to have a perforated gallbladder. The patient did require surgery. He was hospitalized at [facility] for period of time. He was on oxygen while at [facility]. He was given antibiotics and the patient was subsequently discharged. Still having some shortness of breath with activity. Still not feeling completely strong. In addition to that has had this worsening cough and persistent cough that has been bothering him day and night. Typically the cough is nonproductive. On examination he does have some expiratory wheezing. Explained to him that he may have had some micro aspirations relating to aspiration related reactive airways disease and inflammatory changes. The patient did receive a nebulizer treatment in the office with improvement in respiratory symptoms. His cough subsided significantly. He already completed multiple courses of antibiotics. In addition to that will try to avoid prednisone in view of his recent surgery to allow good healing. However, the patient's symptoms worsen he will call and I will send him additional medications. For now will keep him on a short-acting beta agonist that he can use as needed. also to note, during the office visit we did go for a walking oximetry. The patient has pulse ox with activity range around 92-92%. The pat ient is still not his baseline but he does not qualify for oxygen. We talked about the importance of deep breathing and walking to try to further expand his lungs and improve his lung capacity. 06/22/2023 the patient is here for a follow-up visit. Since we last spoke he was rehospitalized after having more complications due to the perforated gallbladder. He states he required multiple procedures and currently being followed closely by his surgeons. He has been using the CPAP. The CPAP therapy continues to be affecting beneficial. He even use it while in hospital. His major complaints at this point is that he has had some episodic hemoptysis. Sometimes is clear mucus and sometimes he notices that the blood. Seems like it has been better for the last few days. I did ask him about any bleeding elsewhere he denies any epistaxis and denies any bleeding from any other orifice. The blood appears to be bright red when it does come out. The patient did cough in the office but is mucus was clear without any specks of blood which is reassuring. His exam is also reassuring. I did also having undergo a chest x-ray demonstrating no acute disease. 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 The patient will monitor closely his symptoms if the hemoptysis returns or worsens he will call the office for an earlier assessment. Currently he is not on any blood thinners. 10/18/2023 the patient is here for pulmonary follow-up visit. He is still having issues after his hospitalization at [facility]. Still having episodes of hemoptysis. The patient complains of a sore throat. Hurts in some areas in the neck area. He is concerned after a lot of manipulations with the 82 to when he was intubated in the ICU and is also concerned with the fact that his father of head and neck cancer. I did during exam no evidence of any significant abnormalities noted in the posterior pharynx or in the gingiva to explain the bleeding. No evidence of any epistaxis. Will go ahead and request a CT scan of the neck to better address the neck pain in addition to the hemoptysis. We also talked about considering bronchoscopy to better evaluate that area as well. Will wait after the CT scan to perform bronchoscopy if he is still having episodes of bleeding. Will continue with the current respiratory therapy from now. He is using CPAP every night CPAP therapy continues to be affecting beneficial. He does use it every night for more than 4 hours a night. Will follow-up 6-[address] scan. If he has any worsening symptoms he will call prior to that. 01/04/2024 the patient is here for pulmonary follow-up visit. Overall the patient has been doing fair. He still complains of his difficulty swallowing addition to that he has had the persistent hemoptysis. Sometimes he has bright red blood. He feels is coming from the throat. He feels is related to his intubation. Therefore, we had him undergo CT scan of the neck. His oropharynx appears to be intact. In the area of the larynx in the vocal cords this is a little bit less clarity. Therefore, will go ahead and perform bronchoscopy at this point to better assess the area of the larynx for any injury and also to assess the trachea proximal trachea for any irritations or areas of bleeding. In the meantime also reassess the nasopharynx and the lower respiratory tract also assessing for any further areas of irritation and bleeding. In the meantime the patient has been using the CPAP the CPAP therapy has been affecting beneficial. Continues use it more than 4 hours a night. We will undergo the bronchoscopy tomorrow since we have an opening available. The patient will be kept NPO. She does take a baby aspirin which she is okay for him to continue. 05/05/2024 the patient is here for a pulmonary follow-up visit. The patient has had a very eventful few months. He was diagnosed with laryngeal cancer and subsequently after that completed radiation. Having significant stomatitis and irritation to the larynx. The patient is having hard time tolerating the CPAP. He is having significant congestion and mucus production and also gagging vomiting. Therefore he can not use the fullface mask. Will go ahead and treat him with chlorhexidine mouthwash in addition to some liquid Augmentin to see if we can clear any infectious processes in order for him to feel better. If he is starting to feel better he can start taking naps during the daytime with CPAP to see if he tolerates it better. And if he does so further then he can continue to use CPAP at nighttime. In the meantime while he is off the CPAP will have him get an overnight oximetry to make sure that he is not having significant hypoxia at nighttime. In the next few months he is going to undergo a PET scan to see his response to therapy. Will follow-up in 3 or 4 months. If he has any issues prior to that he will call for an earlier assessment. [facility] Medical History (Updated 05/07/24 @ 20:01 by Taj Jernigan MD) Dysphagia Bleeding from mouth Tonsillar cancer Neck pain Dyspnea Elevated diaphragm WILIAM (obstructive sleep apnea) Hypogonadism in male Urgency incontinence Renal stones BPH (benign prostatic hyperplasia) Hypogonadism Family History Other CVD (cardiovascular disease) Cancer Pancreatic cancer Social History (Updated 05/05/24 @ 13:48 by Katelin Singer LPN) Patient Tobacco Use Status: Never used Tobacco Review of Systems Const Denies chills, Reports daytime sleepiness, Reports fatigue, Denies fever(s) and Reports weight loss ENT Reports change in voice, Reports dysphagia, Denies nasal congestion, Reports neck pain and Reports sore throat Card Reports no additional complaints, Denies syncope and Reports dyspnea on exertion Resp Reports change in phlegm color, Reports chest congestion, Reports cough, Reports hemoptysis, Reports dyspnea on exertion and Denies wheezing GI Denies abdominal pain, Reports dysphagia and Denies heartburn Musc Reports no additional complaints and Reports neck pain Skin/Breast Denies rash Neuro Denies syncope Endo Reports fatigue Darwin/Lymph Denies lymphadenopathy Aller/Immun Denies wheezing Physical Exam Vital Signs: Last Vital Signs Pulse 92 05/05/24 13:45 BP 124/60 05/05/24 13:45 Pulse Ox 96 05/05/24 13:45 Oxygen Delivery Method Room Air 05/05/24 13:45 BMI result Body Mass Index 26.0 Const General: comfortable HEENT Head: Yes normocephalic Mouth: Normal oral and palatal mucosa present Teeth and gingiva: dentures Throat: Yes posterior oropharynx normal Eyes General: appearance normal, both eyes and all related structures Neck Neck: Yes trachea midline Chest Chest palpation & inspection: normal inspection of the chest Resp Effort & Inspection: normal respiratory effort Auscultation: no wheezes and diminished lung sounds Cardio Rate: regular rate Rhythm: regular rhythm Heart sounds: S1 normal heart sound present and S2 normal heart sound present Skin General skin exam: no rashes or lesions noted Extrem General: Yes no clubbing, cyanosis or edema Assessment & Plan Assessment & Plan (1) Cough: Code(s): R05.9 - Cough, unspecified Category: Medical Qualifiers: Cough type: subacute Qualified Code(s): R05.2 - Subacute cough (2) Neck pain: Code(s): M54.2 - Cervicalgia Category: Medical (3) WILIAM (obstructive sleep apnea): Code(s): G47.33 - Obstructive sleep apnea (adult) (pediatric) Category: Medical (4) 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 - Disorders of diaphragm Category: Medical (5) Dyspnea: Code(s): R06.00 - Dyspnea, unspecified Category: Medical Qualifiers: Dyspnea type: dyspnea on exertion Qualified Code(s): R06.09 - Other forms of dyspnea (6) Tonsillar cancer: Code(s): C09.9 - Malignant neoplasm of tonsil, unspecified Category: Medical (7) Dysphagia: Code(s): R13.10 - Dysphagia, unspecified Category: Medical Qualifiers: Dysphagia type: oral phase Qualified Code(s): R13.11 - Dysphagia, oral phase Plan holding APAP until better, 8-12 AHI 0.7 overnight oximetry on RA continue ROVERTO as needed Augmentin x 14 days chlorhexadine MW x 14 days F/U 3-4 months Orders: Orders Overnight Pulse Oximetry 05/05/24 J44.9 - Chronic obstructive pulmonary disease, unspecified Medications: New amoxicillin-pot clavulanate 600-42.9 mg/5 mL (Augmentin ES-) 10 mL PO Q12H 200 mL 0RF 10 days chlorhexidine gluconate 0.12% 15 mL buccal BID 900 mL 0RF 30 days Coding Level of Care Code Est Pt Level 4 (62017) Complex EM visit Add On G2211 Diagnoses Subacute cough R05.2 Cough type: subacute Neck pain M54.2 WILIAM (obstructive sleep apnea) G47.33 Elevated diaphragm J98.6 Dyspnea on exertion R06.09 Dyspnea type: dyspnea on exertion Tonsillar cancer C09.9 Oral phase dysphagia R13.11 Dysphagia type: oral phase Time Spent (min) 17
== END 2024-05-05 14:20 | disposition home or self-care (01) ==
PROVIDERS: PCP Internal Medicine; Visit Provider Hospitalist
DX: R05.2 Subacute cough (principal); M54.2 Cervicalgia; G47.33 Obstructive sleep apnea (adult) (pediatric); J98.6 Disorders of diaphragm; R06.09 Other forms of dyspnea; C09.9 Malignant neoplasm of tonsil, unspecified; R13.11 Dysphagia, oral phase
CPT/HCPCS: 99214; G2211

== ENCOUNTER → 2024-05-05 13:38 | Outpatient (BNVA) | payer OTHER, SELFPAY | PROVIDERS: PCP Internal Medicine; Visit Provider Hospitalist | DX: G47.33 Obstructive sleep apnea (adult) (pediatric) (principal); J98.6 Disorders of diaphragm; R05.2 Subacute cough; R06.09 Other forms of dyspnea; R13.11 Dysphagia, oral phase; M54.2 Cervicalgia; C09.9 Malignant neoplasm of tonsil, unspecified | CPT/HCPCS: 99212 ==

== ENCOUNTER 2024-07-18 13:00 | Outpatient (RCR) | payer OTHER, SELFPAY ==
--- NOTE | 2024-08-31 12:35 | MHC.SL.SOA ---
Referring Provider: Taj Jernigan MD Reason for Referral: Trouble swallowing Date of Plan of Treatment:04/05/24 Onset of Symptoms/Illness:02/23/24 Date Treatment Started:04/05/24 Medical Diagnosis:R13.10 Dysphagia, unspecified C09.9 Malignant neoplasm of tonsil, unspecified Primary Speech Language Diagnosis:R13.12 Oropharyngeal Phase Dysphagia Reason for Visit:29992 Dysphagia Treatment Subjective:Wood's session last week 07/11 was cancelled per his request. He arrived on time for his appointment today, accompanied by his , Katharina. Objective: During today's session, we discussed Wood's plan of care thus far, given his continued aversion of eating and drinking by mouth, and minimal compliance to home exercises. Assessment:Wood was reportedly kept overnight at [facility] last week after falling out of bed. He was reportedly dehydrated with labs showing low sodium in the ED, with improvement after IV hydration. Katharina reported Wood also seemed to be having hallucinations and shuffling gait. She noted familial history of Parkinson's Disease in Wood's mother. Wood is awaiting PRICING ANALYST hours, to start in 2-3 weeks. Wood has a brain MRI scheduled for 07/29 and a GI appointment in July as well to work up for these concerns. Wood reports tries to do his exercises daily, though not at a set time, usually while his tube feeds were running. Wood says he tried spoonfuls of ice cream and fruit cocktail, but has not been eating due to constant pain in his throat, coughing after swallowing, and decreased appetite due to lack of taste. Wood continues with limited PO intake due to discomfort and pain in his throat. He reportedly saw his ENT doctor a few weeks ago and was scoped. The doctor noted copious mucous, but otherwise a normal exam. Katharina says Wood was told he did not have any growths or scar tissue, noting, There is nothing physically there to get in his way. Notes: Recommend repeat-MBSS to assess for any changes to swallow physiology. Wood [facility] to schedule the exam when a physician's order is received. Plan: Goal # : ? Diet - The patient will tolerate a pureed diet with thin liquids without signs or symptoms of penetration/aspiration 100% of the time. - The patient will participate in therapeutic PO trials with the JELLY MAKER. Status of Goal: Goal Continued Goal # : ? Guidelines - The patient will comply with/recall the following guidelines/strategies 100% of the time with no cuing: Bolus Volume Change, Rate of Ingestion Change, Additional Swallow(s) per Bolus, No Straws. Status of Goal: Goal Continued Goal # : ? Independent Home Exercise - The patient will perform 10 repetitions of the Effortful Swallow, Evelyn Maneuver, Shaker Head Lifts, Ana Maneuver 2 times a day with 100% accuracy and no cuing as part of a home exercise program. Status of Goal: Goal Continued Goal # : ? Education - The patient, family will verbalize/demonstrate understanding of the results of this evaluation, the above recommendations, and the swallowing guidelines. Status of Goal: Goal Continued Seen by: Graduate/Clinical Fellow: No Supervisory Statement: f_Reg Query Last Value , MHC.AU.SIGNATUR Speech Language Pathologist: Mitra Murray M.A., CCC-JELLY MAKER
== END 2024-09-04 15:45 | disposition home or self-care (01) ==
LOC: HO.SH 13:00
PROVIDERS: PCP Internal Medicine; Visit Provider Hospitalist
DX: R13.10 Dysphagia, unspecified (principal); C09.9 Malignant neoplasm of tonsil, unspecified
CPT/HCPCS: 92526

== ENCOUNTER 2024-07-25 13:51 | Outpatient (AMB) | payer OTHER, SELFPAY ==
--- OUTSIDE RECORDS SUMMARY | 2024-07-25 14:00 | XMS_ITS | Encounter Summary ---
Author Organization [facility] Address [address] [place] [address] Care Team Providers Care Energy Economist Name Role Phone Min Mckenzie MD Primary Care Provider Encounter Details Date Type Department Care Team ([facility] st Contact Info) Description 07/20/2024 Community Care Management [facility] [address] [place] [address] Clara Pastor Social History Tobacco Use Types Packs/Day Years Used Date Smoking Tobacco: Never Smokeless Tobacco: Never Alcohol Use Standard Drinks/Week Comments Yes 0 (1 standard drink = 0.6 oz pur e alcohol) Housing Instability Answer Date Recorde d Are you worried that in the next 2 months you may not have stable housing? No 07/20/2024 Food Access & Nutrition Answer Date Rec orded Do you have access to a vari ety of food including fruits and vegetables? No 07/20/2024 Access to Healthcare Answer Date Record ed Within the last 3 months, ho w many times did you visit the emergency department for your medical care? 1 07/20/2024 Health Literacy Answer Date Recorded How often do you need to hav e someone help you when you read instructions, pamphlets, or other written material from your doctor or pharmacy? Never 07/20/2024 Caregiver: How often do you need to have someone help you when you read instructions, pamphlets, or other written material from your doctor or pharmacy? Not on file 07/20/2024 Financial Risk Answer Date Recorded How hard is it for you to pa y for the very basics like food, housing, medical care, and air conditioning / heating? Not very hard 07/20/2024 Transportation Answer Date Recorded Has the lack of transportati on kept you from meetings, work, or from getting things needed for daily living? No Has the lack of transportati on kept you from medical appointments or from getting medications? No 07/20/2024 Social Isolation Answer Date Recorded How often do you feel lonely or isolated from th ose around you? Never 07/20/2024 Food Risk Answer Date Recorded Within the past 12 months we worried whether our food would run out before we got money to buy more. Never true 07/20/2024 Within the past 12 months th e food we bought just didn't last and we didn't have money to get more. Never true 07/20/2024 Dependent Care Answer Date Recorded Do you need help finding or paying for care for your loved ones. For example, child care worker or elderly care for an older adult? No 07/20/2024 Education Answer Date Recorded Do you think completing more education or training, like finishing a GED, going to college, or learning a trade, would be helpful for you? No 07/20/2024 Employment and Income Answer Date Recor ded During the last four weeks, have you been actively looking for work? No 07/20/2024 Living Situation Answer Date Recorded What is your living situation? 0 07/20/2024 Interpersonal Safety Answer Date Record ed Physical Abuse 07/07/2024 Verbal Abuse 07/07/2024 Sex and Gender Information Value Date Recorded Sex Assigned at Male 07/18/2024 4:21 PM EST Gender Identity Male 07/18/2024 4:21 PM EST Sexual Orientation Straight 07/18/2024 4: 21 PM EST Job Start Date Occupation Industry Not on file Not on file Not on file documented as of this encounter Functional Status Functional Status Response Date of Assess ment Are you deaf or do you have serious difficulty h earing? No 07/18/2024 Are you blind or do you have serious difficulty seeing, even when wearing glasses? No 07/18/2024 Do you have serious difficul ty walking or climbing stairs? No 07/18/2024 Do you have serious difficulty dressing or bathi ng? No 07/18/2024 Because of a physical, menta l, or emotional condition, do you have serious difficulty doing errands alone such as visiting the doctor? No 07/18/2024 Cognitive Status Response Date of Assessm ent Because of a physical, menta l, or emotional condition, do you have serious difficulty concentrating, remembering, or making decisions? (5 years old or older) No 07/18/2024 documented as of this encounter Plan of Treatment Upcoming Encounters Date Type Department Care Team (Late st Contact Info) Description 08/02/2024 12:30 PM EST Treatment [facility] [address] [address] Leticia Lau P, OTR/L documented as of this encounter Visit Diagnoses Not on filedocumented in this encounter Care Teams Energy Economist Relationship Specialty Start Date End Date Min Mckenzie MD [address] [place] [id number] PCP - General Internal Medicine 05/03/13 documented as of this encounter
--- OUTSIDE RECORDS SUMMARY | 2024-07-25 14:00 | XMS_ITS | Clinical Summary ---
Author Organization [facility] Address [address] [place] [address] Phone Care Team Providers Care Cage Cashier Name Role Phone Min Mckenzie MD Primary Care Provider [phone] Allergies Active Allergy Reactions Criticality Noted Date Comments Iodinated Contrast Media 07/26/2017 Medications Medication Sig Dispensed Refills Start Date End Date Status pantoprazole (PROTONIX) 40 mg EC tablet Take 1 tablet (40 mg total) by mouth 1 (one) time each day. 09/08/2023 Active metoprolol succinate (TOPROL-XL) 50 mg 24 hr tablet Take 1 tablet (50 mg total) by mouth 1 (one) time each day. Active atorvastatin (LIPITOR) 40 mg tablet Take 1 tablet (40 mg total) by mouth at bedtime. 09/08/2023 Active FLUoxetine (PROzac) 20 mg capsuleIndicati ons:anxiety with depression Take 1 capsule (20 mg total) by mouth 1 (one) time each day. Active FLUoxetine (PROzac) 20 mg capsule Take 1 capsule (20 mg total) by mouth 1 (one) time each day. 02/15/2024 5 Discontinued buPROPion XL (WELLBUTRIN XL) 300 mg 24 hr tablet Take 1 tablet (300 mg total) by mouth 1 (one) time each day. 06/05/2024 5 Discontinued(Side effects) aspirin 325 mg capsule 81 mg by nasogastric tube route 1 (one) time each day. 04/13/2014 5 Discontinued(Side effects) atorvastatin (LIPITOR) 40 mg tablet Take 1 tablet (40 mg total) via g-tube at bedtime. 09/08/2023 5 Discontinued(Ente red in Error) buPROPion XL (WELLBUTRIN XL) 150 mg 24 hr tablet Take 1 tablet (150 mg total) by mouth 1 (one) time each day at the same time. 5 Discontinued(Form ulary change) Active Problems Problem Noted Date Diagnosed Date Moderate malnutrition 07/20/2024 Weakness 07/19/2024 Hyponatremia 07/08/2024 Failure to thrive in adult 07/07/2024 S/P cholecystectomy 07/07/2024 WILIAM on CPAP 07/07/2024 Hyperlipidemia 07/07/2024 GERD (gastroesophageal reflux disease) JULIET (generalized anxiety disorder) 07/07/2024 Decreased testosterone level 07/07/2024 Atherosclerosis of coronary artery 07/07/2024 Overview (07/07/2024): 1992 angioplasty with atherectomy. 2004 angioplasty with stent Benign prostatic hyperplasia 07/07/2024 Tonsil cancer 06/05/2024 Depression, major, in remission 06/05/2024 Essential hypertension 09/08/2022 Resolved Problems Problem Noted Date Diagnosed Date Resolved Date History of myocardial infarction 07/07/2024 07/07/2024 Gallstone pancreatitis 07/07/202407/07 Encounters Date Type Department Care Team Description 07/20/2024 Community Care Management [facility] Worker [facility] [address] [place] [phone] Clara Pastor 07/20/2024 Community Care Management [facility] [address] [place] [phone] AndressMadaiisa 07/20/2024 Telephone [facility] [address] [place] [phone] AndressClara 07/18/2024 4:00 PM EST - 07/20/2024 12:19 PM EST Emergency [facility] Emergency [address] [place] [phone] Jesus Alberto Farah MD Millay, Scot A, MD Ishtiaq, Rizwan, MD Bukalo, Nermina, MD Bell, Alistair A, MD Dysphagia, unspecified type (Primary Dx); Unstable gait Discharge Disposition: Home-Health Care [facility] 07/17/2024 12:22 AM EST - 07/17/2024 9:00 AM [facility] Emergency [facility] Emergency [address] [place] [phone] Adverse effect of antidepressant drug, initial encounter (Primary Dx) Discharge Disposition: Home or Self Care 07/07/2024 1:55 PM EST - 07/08/2024 4:06 PM [facility] Hospital Encounter [facility] Urology Unit [address] [place] [phone] Julio Kruger MD Jones, Christopher, MD Seralathan, Manikandan, MD Hyponatremia (Primary Dx); Generalized weakness Discharge Disposition: Home-Health Care [facility] 06/10/2024 7:32 PM EST - 06/10/2024 8:50 PM [facility] Emergency [facility] Emergency [address] [place] [phone] Dislodged gastrostomy tube (Primary Dx) Discharge Disposition: Home or Self Care from Last 3 Months Surgical History Surgery Date Site/Laterality Comments CHOLECYSTECTOMY Medical History Medical History Date Comments Cancer (CMS/HCC) CAD (coronary artery disease) Hypertension History of myocardial infarction 07/07/2024 Gallstone pancreatitis 07/07/2024 Family History Medical History Relation Name Comments Heart attack Brother Heart attack Mother Relation Name Status Comments Brother Alive Mother Social History Tobacco Use Types Packs/Day Years [...] Record ed Within the last 3 months, niko w many times did you visit the [...] for your loved ones. For example, child and family counselor or elderly care for an older adult? [...] file Not on file Not on file Obstetrics History Last Filed Vital Signs Vital Sign Reading Time Taken Comments Blood Pressure 124/79 07/20/2024 12:06 PM EST Pulse 81 07/20/2024 12:06 PM EST Temperature 36.4 ??C (97.5 ??F) 07/20/2024 1 2:44 AM EST Respiratory Rate 16 07/20/2024 12:0 6 PM EST Oxygen Saturation 99% 07/20/2024 12: 06 PM EST Inhaled Oxygen Concentration - - Weight 77.1 kg (169 lb 15.6 oz) 07/19/2024 2:33 PM EST Height 175.3 cm (5' 9.02 ) 07/19/2024 2:45 PM ES T Body Mass Index 25.09 07/19/2024 2:33 PM EST Plan of Treatment Upcoming Encounters Date Type Department Care Team (Late st Contact Info) Description 08/02/2024 12:[address] [facility] Occupational Therapy [address] [phone] Leticia Lau, OTR/L Health Maintenance Due Date Last Done Comments Zoster Vaccines (1 of 2) 06/30/2012 05/05/2012 Colorectal Cancer Screening: Colonoscopy 05/30/2022 Depression Screening 05/30/2022 Hepatitis C Screening 05/30/2022 Medicare Annual Wellness Visit 05/30/2022 COVID-19 Vaccine ( season) 2024 07/10/2021, 01/07/2021 Influenza Vaccine (#1) 2024 , 03/05/2020, 02/19/2019, Additional history exists Falls Risk Assessment 07/17/2025 07/17/2024 Hypertension/CHF/CAD Annual BMP Blood Test 07/20/2025 07/20/2024, 07/19/2024, 07/18/2024, Additional history exists Social Influencers of Health Screening 07/20/2025 07/20/2024 Cholesterol Screening (Lipid Panel) 07/20/2029 07/20/2024, 07/18/2024 RSV Immunization Patients 60+ Years Old (1 - 1-dose 75+ series) 2032 DTaP,Tdap,and Td Vaccines (5 - Td or Tdap) 03/17/2034 03/17/2024, 11/29/2018, 08/13/2009, Additional history exists Hepatitis A Vaccines Aged Out 08/29/2007, 02/03/20 07 No longer eligible based on patient's age to complete this topic Pneumococcal Vaccine: 65+ Years Completed 02/04/2023, 08/13/2009 HIB Vaccines Aged Out No longer eligi ble based on patient's age to complete this topic HPV Vaccines Aged Out No longer eligi ble based on patient's age to complete this topic Hepatitis B Vaccines Aged Out No long er eligible based on patient's age to complete this topic IPV Vaccines Aged Out No longer eligi ble based on patient's age to complete this topic MMR Vaccines Aged Out No longer eligi ble based on patient's age to complete this topic Meningococcal ACWY Vaccine Aged Out N o longer eligible based on patient's age to complete this topic RSV Immunization Patients Under 20 months Aged Out No longer eligible based on patient's age to complete this topic Varicella Vaccines Aged Out No longer eligible based on patient's age to complete this topic Procedures Procedure Name Priority Date/Time Associated Diagnosis Comments BASIC METABOLIC PANEL Routine 07/20/2024 6:12 AM EST LIPID PANEL WITH REFLEX TO DIRECT LDL Routine 07/20/2024 6:12 AM EST MR BRAIN WO CONTRAST Routine 07/19/2024 8:56 AM EST CBC WITH AUTO DIFFERENTIAL Routine 07/19/2024 6:43 AM EST MAGNESIUM Routine 07/19/2024 6:43 AM EST BASIC METABOLIC PANEL Routine 07/19/2024 6:43 AM EST CBC AND DIFFERENTIAL Routine 07/19/2024 6:[address] NECK SOFT TISSUE W CONTRAST STAT 07/18/2024 11:[address] HEAD WO AND W CONTRAST STAT 07/18/2024 11:45 PM EST CONTRERAS URINE CULTURE TUBE STAT 07/18/2024 8:43 PM EST URINALYSIS WITH REFLEX MICROSCOPIC AND CULTURE STAT 07/18/2024 8:43 PM EST URINALYSIS WITH REFLEX MICROSCOPIC AND CULTURE STAT 07/18/2024 8:43 PM EST ECG 12-LEAD STAT 07/18/2024 6:26 PM EST POC GLUCOSE STAT 07/18/2024 6:08 PM EST POCT GLUCOSE BLOOD Routine 07/18/2024 6: 05 PM EST LIPID PANEL WITH REFLEX TO DIRECT LDL Add-On 07/18/2024 4:47 PM EST HEMOGLOBIN A1C Add-On 07/18/2024 4:47 PM EST CBC WITH AUTO DIFFERENTIAL STAT 07/18/2024 4:47 PM EST AMMONIA STAT 07/18/2024 4:47 PM EST COMPREHENSIVE METABOLIC PANEL STAT 07/18/2024 4:47 PM EST CBC AND DIFFERENTIAL STAT 07/18/2024 4:47 PM EST ECG ANNOTATED 07/18/2024 HEPATIC FUNCTION PANEL STAT 3:33 AM EST XR CHEST 2 VIEWS STAT 07/17/2024 3:06 AM EST CBC WITH AUTO DIFFERENTIAL STAT 07/17/2024 2:25 AM EST MAGNESIUM STAT 07/17/2024 2:25 AM EST BASIC METABOLIC PANEL STAT 07/17/2024 2:25 AM EST CBC AND DIFFERENTIAL STAT 07/17/2024 2:25 AM EST ECG ANNOTATED 07/17/2024 ECG 12-LEAD STAT 07/16/2024 11:11 PM EST XR CHEST 2 VIEWS STAT 07/08/2024 8:44 AM EST SODIUM, URINE, RANDOM STAT 07/08/2024 6:49 AM EST OSMOLALITY, URINE Routine 07/08/2024 6:4 9 AM EST CBC WITH AUTO DIFFERENTIAL Routine 07/08/2024 6:12 AM EST CBC AND DIFFERENTIAL Routine 07/08/2024 6:12 AM EST BASIC METABOLIC PANEL Routine 07/08/2024 6:12 AM EST VITAMIN B12 AND FOLATE Add-On 12:02 AM EST IRON AND TIBC Add-On 07/08/2024 12:02 AM EST FERRITIN Add-On 07/08/2024 12:02 AM EST OSMOLALITY STAT 07/08/2024 12:02 AM EST BASIC METABOLIC PANEL Routine 07/08/2024 12:02 AM EST CONTRERAS URINE CULTURE TUBE STAT 07/07/2024 4:42 PM EST URINALYSIS WITH REFLEX MICROSCOPIC AND CULTURE STAT 07/07/2024 4:42 PM EST URINALYSIS WITH REFLEX MICROSCOPIC AND CULTURE STAT 07/07/2024 4:42 PM EST CULTURE URINE STAT 07/07/2024 4:42 PM EST RESPIRATORY VIRUS PANEL MOLECULAR STUDY STAT 07/07/2024 3:[address] HEAD WO CONTRAST STAT 07/07/2024 2 :52 PM EST CREATINE KINASE Add-On 07/07/2024 2:11 PM EST TROPONIN I HIGH SENSITIVITY STAT 07/07/2024 2:11 PM EST CBC WITH AUTO DIFFERENTIAL STAT 07/07/2024 2:11 PM EST COMPREHENSIVE METABOLIC PANEL STAT 07/07/2024 2:11 PM EST CBC AND DIFFERENTIAL STAT 07/07/2024 2:11 PM EST ECG 12-LEAD STAT 07/07/2024 1:53 PM EST ECG ANNOTATED 07/07/2024 HC INSERT/CHANGE GASTRIC TUBE Routine 06/10/2024 8:38 PM EST VA REPLACEMENT/REMOVAL GASTROSTOMY TUBE PERCUTANOUS W/O GUIDANCE Routine 06/10/2024 8:38 PM EST XR ABDOMEN 1 VIEW STAT 06/10/2024 8:3 7 PM EST from Last 3 Months Results * Lipid panel with reflex to direct LDL (07/20/2024 6:12 AM EST) Only the most recent of2 resultswithin the time period is included. Cholesterol 89 0 - 200 mg/dL LAB CHEMISTRY METHOD 07/20/2024 8:02 AM [facility] Triglycerides 43 0 - 150 mg/dL LAB CHEMISTRY METHOD 07/20/2024 8:02 AM EST [facility] HDL 50 >=40 mg/dL LAB CHEMISTRY METHOD 07/20/2024 8:02 AM [facility] LDL Calculated 30 0 - 100 mg/dL LAB CHEMISTRY METHOD 07/20/2024 8:02 AM [facility] VLDL Cholesterol Thomas 8.6 mg/dL LAB CHEMISTRY METHOD 07/20/2024 8:02 AM [facility] Non HDL Chol. (LDL+VLDL) 39 <145 mg/dL LAB CHEMISTRY METHOD 07/20/2024 8:02 AM [facility] Chol/HDL Ratio 1.8 0.0 - 4.4 LAB CHEMISTRY METHOD 07/20/2024 8:02 AM [facility] Blood Venous blood specimen / Unknown Venipuncture / Unknown 07/20/2024 6:12 AM EST 07/20/2024 6:30 AM EST Flakita Dobson NP LAB BLOOD ORDERABLES [facility] [address] [place] [address], * (ABNORMAL) Basic metabolic panel (07/20/2024 6:12 AM EST) Only the most recent of5 resultswithin the time period is included. Sodium 133 133 - 145 mmol/L LAB CHEMISTRY METHOD 07/20/2024 7:20 AM [facility] Potassium 3.8 3.5 - 5.5 mmol/L LAB CHEMISTRY METHOD 07/20/2024 7:20 AM [facility] Chloride 98 96 - 110 mmol/L LAB CHEMISTRY METHOD 07/20/2024 7:20 AM [facility] CO2 28 21 - 32 mmol/L LAB CHEMISTRY METHOD 07/20/2024 7:20 AM [facility] Anion Gap 7 3 - 11 LAB CHEMISTRY METHOD 07/20/2024 7:20 AM [facility] Glucose 84 70 - 100 mg/dL LAB CHEMISTRY METHOD 07/20/2024 7:20 AM [facility] BUN 17 5 - 25 mg/dL LAB CHEMISTRY METHOD 07/20/2024 7:20 AM [facility] Creatinine 0.60(L) 0.70 - 1.30 mg/dL LAB CHEMISTRY METHOD 07/20/2024 7:20 AM [facility] eGFR 106 >=60 mL/min/1. 73m2 LAB CHEMISTRY METHOD 07/20/2024 7:20 AM EST [facility] Comment:Calculation based on the??Chronic Kidney Disease Epidemiology Collaboration (CKD-EPI) equation refit??without adjustment for race. BUN/Creatinine Ratio 28.3 LAB CHEMISTRY METHOD 07/20/2024 7:20 AM EST [facility] Calcium 8.6 8.5 - 10.5 mg/dL LAB CHEMISTRY METHOD 07/20/2024 7:20 AM EST [facility] Blood Venous blood specimen / Unknown Venipuncture / Unknown 07/20/2024 6:12 AM EST 07/20/2024 6:30 AM EST Flakita Dobson NP LAB BLOOD ORDERABLES Performing Organization Address City/State/[facility] Co de Phone Number [facility] [address] [place] [address], * MR Brain wo Contrast (07/19/2024 8:56 AM EST) Anatomical Region Laterality Modality Head and Neck Magnetic Resonan ce 07/19/2024 9:39 AM EST Impressions 07/19/2024 9:51 AM EST 1. ??No acute infarct. ??No acute findings. 2. ??Paranasal sinus disease as detailed above. ??Layering debris in the rightward sphenoid sinus could be secondary to acute sinusitis in the appropriate clinical setting. -------- FINAL REPORT -------- Dictated By: Yasmani Aguilar Dictated Date: 07/19/2024 09:39 ET Assigned Physician: Yasmani Aguilar Reviewed and Electronically Signed By: Yasmani Aguilar Signed Date: 07/19/2024 09:51 ET Workstation ID: [id number] Transcribed By: Self Edit Transcribed Date: 07/19/2024 09:39 ET Narrative 07/19/2024 9:51 AM EST PROCEDURE: Noncontrast MRI of the brain. HISTORY: Neuro deficit, acute, stroke suspected Mental status change, unknown cause. COMPARISON: Head CT 07/10/2024. TECHNIQUE: Multiplanar multisequence MRI of the brain without intravenous contrast administration. FINDINGS: This study is mildly limited by patient motion. BRAIN: No diffusion abnormality. ??No mass or extra-axial fluid collection. ??No hydrocephalus. ??The major intracranial flow voids are preserved. Age commensurate ventricles and sulci. ORBITS: Normal. SINUSES/MASTOIDS: Minimal mucosal thickening in the ethmoid air cells and inferior left maxillary antrum. ??Small amount of fluid in the left mastoids and trace fluid in the right mastoids. ??Mild mucosal thickening and layering debris in the rightward sphenoid sinus. CALVARIUM: Normal. OTHER: The visualized skull base soft tissues are normal. Procedure Note Yasmani Aguilar MD - 07/19/2024 PROCEDURE: Noncontrast MRI of the brain. HISTORY: Neuro deficit, acute, stroke suspected Mental status change, unknown cause. COMPARISON: Head CT 07/10/2024. TECHNIQUE: Multiplanar multisequence MRI of the brain without intravenouscontrast administration. FINDINGS: This study is mildly limited by patient motion. BRAIN: No diffusion abnormality. No mass or extra-axial fluid collection.No hydrocephalus. The major intracranial flow voids are preserved. Agecommensurate ventricles and sulci. ORBITS: Normal. SINUSES/MASTOIDS: Minimal mucosal thickening in the ethmoid air cells andinferior left maxillary antrum. Small amount of fluid in the leftmastoids and trace fluid in the right mastoids. Mild mucosal thickeningand layering debris in the rightward sphenoid sinus. CALVARIUM: Normal. OTHER: The visualized skull base soft tissues are normal. IMPRESSION: 1. No acute infarct. No acute findings. 2. Paranasal sinus disease as detailed above. Layering debris in therightward sphenoid sinus could be secondary to acute sinusitis in theappropriate clinical setting. -------- FINAL REPORT -------- Dictated By: Yasmani Aguilar Dictated Date: 07/19/2024 09:39 ET Assigned Physician: Yasmani Aguilar Reviewed and Electronically Signed By: Yasmani Aguilar Signed Date: 07/19/2024 09:51 ET Workstation ID: [id number] Transcribed By: Self Edit Transcribed Date: 07/19/2024 09:39 ET Cipriano Almanza MD IMG MRI PROCEDURES * (ABNORMAL) CBC auto differential (07/19/2024 6:43 AM EST) Only the most recent of5 resultswithin the time period is included. WBC 7.2 4.8 - 10.8 K/mcL LAB HEMETOLOGY METHOD 07/19/2024 7:08 AM [facility] RBC 4.20(L) 4.50 - 5.50 M/mcL LAB HEMETOLOGY METHOD 07/19/2024 7:08 AM [facility] Hemoglobin 13.6 13.5 - 17.5 g/dL LAB HEMETOLOGY METHOD 07/19/2024 7:08 AM [facility] Hematocrit 39.4(L) 42.0 - 54.0 % LAB HEMETOLOGY METHOD 07/19/2024 7:08 AM [facility] MCV 94.3 79.0 - 98.0 FL LAB HEMETOLOGY METHOD 07/19/2024 7:08 AM [facility] MCH 32.5(H) 27.0 - 32.0 pcg LAB HEMETOLOGY METHOD 07/19/2024 7:08 AM [facility] MCHC 34.5 32.0 - 37.0 g/dL LAB HEMETOLOGY METHOD 07/19/2024 7:08 AM [facility] RDW 13.9 11.0 - 15.0 % LAB HEMETOLOGY METHOD 07/19/2024 7:08 AM [facility] Platelets 158 130 - 400 K/mcL LAB HEMETOLOGY METHOD 07/19/2024 7:08 AM [facility] MPV 8.8 7.0 - 11.0 FL LAB HEMETOLOGY METHOD 07/19/2024 7:08 AM [facility] NRBC 0.0 <1.0 % LAB HEMETOLOGY METHOD 07/19/2024 7:08 AM [facility] NRBC Absolute 0.00 <0.10 K/mcL LAB HEMETOLOGY METHOD 07/19/2024 7:08 AM [facility] Neutrophils Relative 84.0 % LAB HEMETOLOGY METHOD 07/19/2024 7:08 AM [facility] Lymphocytes Relative 9.8 % LAB HEMETOLOGY METHOD 07/19/2024 7:08 AM [facility] Monocytes Relative 5.5 % LAB HEMETOLOGY METHOD 07/19/2024 7:08 AM [facility] Eosinophils Relative 0.0 % LAB HEMETOLOGY METHOD 07/19/2024 7:08 AM [facility] Basophils Relative 0.0 % LAB HEMETOLOGY METHOD 07/19/2024 7:08 AM [facility] Immature Granulocytes Relative 0.7 % LAB HEMETOLOGY METHOD 07/19/2024 7:08 AM [facility] Neutrophils Absolute 6.07 1.50 - 7.00 K/mcL LAB HEMETOLOGY METHOD 07/19/2024 7:08 AM [facility] Lymphocytes Absolute 0.71(L) 1.00 - 5.00 K/mcL LAB HEMETOLOGY METHOD 07/19/2024 7:08 AM [facility] Monocytes Absolute 0.40 0.20 - 1.00 K/mcL LAB HEMETOLOGY METHOD 07/19/2024 7:08 AM [facility] Eosinophils Absolute 0.00 0.00 - 0.50 K/mcL LAB HEMETOLOGY METHOD 07/19/2024 7:08 AM [facility] Basophils Absolute 0.00 0.00 - 0.20 K/mcL LAB HEMETOLOGY METHOD 07/19/2024 7:08 AM EST [facility] Immature Granulocytes Absolute 0.05(H) 0.00 - 0.03 K/mcL LAB HEMETOLOGY METHOD 07/19/2024 7:08 AM EST [facility] Blood Venous blood specimen / Unknown Venipuncture / Unknown 07/19/2024 6:43 AM EST 07/19/2024 6:55 AM EST Cipriano Almanza MD LAB BLOOD ORDERABLES Performing Organization Address [facility] Co de Phone Number [facility] [address] [place] [address], * Magnesium (07/19/2024 6:43 AM EST) Only the most recent of2 resultswithin the time period is included. Magnesium 2.0 1.9 - 2.6 mg/dL LAB CHEMISTRY METHOD 07/19/2024 7:18 AM EST [facility] Blood Venous blood specimen / Unknown Venipuncture / Unknown 07/19/2024 6:43 AM EST 07/19/2024 6:55 AM EST Cipriano Almanza MD LAB BLOOD ORDERABLES Performing Organization Address [facility] Co de Phone Number [facility] [address] [place] [address], * CT Neck Soft Tissue w Contrast (07/18/2024 11:45 PM EST) Anatomical Region Laterality Modality Head and Neck Computed Tomogra phy 07/19/2024 12:4 6 AM EST Impressions 07/19/2024 12:46 AM EST No visible mass or other structural abnormaity in patient with history of advanced head/neck cancer to explain symptoms. No absces or edema. Bi-apical coarse lung consolidations perhaps related to radition pneumonitis or fibrosis given history. This document has been electronically signed by: Jayden Antonio MD on 07/19/2024 00:46:13 Narrative 07/19/2024 12:[address] soft tissue neck with contrast Comparison: None Findings: Pharyngeal mucosal space, parapharyngeal fat, prevertebral tissues, and epiglottis are within normal limits. Salivary glands are unremarkable. No sialoliths. No suspicious thyroid nodules. Mild bilateral coarse consolidation at the lung apices. No acute fracture or dislocation. Degenerative changes. Procedure Note Jayden Antonio MD - 07/19/2024 CT soft tissue neck with contrast Comparison: None Findings: Pharyngeal mucosal space, parapharyngeal fat, prevertebral tissues, and epiglottis are within normal limits. Salivary glands are unremarkable. No sialoliths. No suspicious thyroid nodules. Mild bilateral coarse consolidation at the lung apices. No acute fracture or dislocation. Degenerative changes. IMPRESSION: No visible mass or other structural abnormaity in patient with historyof advanced head/neck cancer to explain symptoms. No absces or edema. Bi-apical coarse lung consolidations perhaps related to radition pneumonitis or fibrosis given history. This document has been electronically signed by: Jayden Antonio MD on 07/19/2024 00:46:13 [address] [address] PROCEDURES * CT Head wo and w Contrast (07/18/2024 11:45 PM EST) Anatomical Region Laterality Modality Head and Neck Computed Tomogra phy 07/19/2024 12:4 0 AM EST Impressions 07/19/2024 12:40 AM EST No acute intracranial findings. Chronic changes as described. Improvement in sinus disease. This document has been electronically signed by: Jayden Antonio MD on 07/19/2024 00:40:46 Narrative 07/19/2024 12:[address] head with and without contrast Comparison: CT - CT HEAD WO CONTRAST - 07/07/24 14:28 EST Findings: No intracranial mass, midline shift, hydrocephalus, or acute hemorrhage. Chronic parenchymal volume loss. Nonspecific scattered white matter changes, most likely reflective of chronic small vessel ischemic changes in patient of this age. Following contrast infusion, no pathologic enhancement or mass visualized. No significant mastoid effusion. Improvement in right sphenoid sinus opacification. Resolution of right maxillary sinus opacification. No acute fracture. Procedure Note Jayden Antonio MD - 07/19/2024 CT head with and without contrast Comparison: CT - CT HEAD WO CONTRAST - 07/07/24 14:28 EST Findings: No intracranial mass, midline shift, hydrocephalus, or acute hemorrhage. Chronic parenchymal volume loss. Nonspecific scattered white matter changes, most likely reflective of chronic small vessel ischemic changes in patient of this age. Following contrast infusion, no pathologic enhancement or massvisualized. No significant mastoid effusion. Improvement in right sphenoid sinus opacification. Resolution of right maxillary sinus opacification. No acute fracture. IMPRESSION: No acute intracranial findings. Chronic changes as described. Improvement in sinus disease. This document has been electronically signed by: Jayden Antonio MD on 07/19/2024 00:40:46 Emmett [place]GADO [facility] PROCEDURES * Urinalysis with reflex microscopic and culture (07/18/2024 8:43 PM EST) Only the most recent of2 resultswithin the time period is included. Specific [place] Urine 1.014 1.003 - 1.030 LAB URINALYSIS - AUTOMATED METHOD 07/18/2024 9:36 PM [facility] pH, Urine 7.0 5.0 - 8.0 pH LAB URINALYSIS - AUTOMATED METHOD 07/18/2024 9:36 PM [facility] Leukocytes, Urine Negative Negative LAB URINALYSIS - AUTOMATED METHOD 07/18/2024 9:36 PM [facility] Nitrite, Urine Negative Negative LAB URINALYSIS - AUTOMATED METHOD 07/18/2024 9:36 PM [facility] Protein, Urine Negative <=Trace mg/dL LAB URINALYSIS - AUTOMATED METHOD 07/18/2024 9:36 PM [facility] Glucose, Urine Negative Negative mg/dL LAB URINALYSIS - AUTOMATED METHOD 07/18/2024 9:36 PM EST [facility] Ketones, Urine Negative Negative mg/dL LAB URINALYSIS - AUTOMATED METHOD 07/18/2024 9:36 PM [facility] Urobilinogen, Urine 1.0 0.2 - 1.0 mg/dL LAB URINALYSIS - AUTOMATED METHOD 07/18/2024 9:36 PM [facility] Bilirubin, Urine Negative Negative LAB URINALYSIS - AUTOMATED METHOD 07/18/2024 9:36 PM [facility] Blood, Urine Negative Negative LAB URINALYSIS - AUTOMATED METHOD 07/18/2024 9:36 PM [facility] Urine Urine specimen obtained by clean catch procedure / Unknown Non-blood Collection / Unknown 07/18/2024 8:43 PM EST 07/18/2024 8:56 PM EST Jesus Alberto Farah MD LAB URINE ORDERAB LES [facility] [address] [place] [address], [place] [phone] * Contreras urine culture tube (07/18/2024 8:43 PM EST) Only the most recent of2 resultswithin the time period is included. Extra Tube Hold for add-ons. 07/18/2024 10:01 PM EST [facility] Comment:Auto resulted. Urine Urine specimen obtained by clean catch procedure / Unknown Non-blood Collection / Unknown 07/18/2024 8:43 PM EST 07/18/2024 8:56 PM EST Jesus Alberto Farah MD LAB URINE ORDERAB LES [facility] [address] [place] [address], [place] [phone] * ECG 12 lead (07/18/2024 6:26 PM EST) Only the most recent of3 resultswithin the time period is included. Ventricular Rate ECG 76 BPM GEMUSE Atrial Rate 76 BPM GEMUSE P-R Interval 176 ms GEMUSE QRS Duration 88 ms GEMUSE Q-T Interval 384 ms GEMUSE QTc 432 ms GEMUSE P Wave Anza 28 degrees GEMUSE R Anza 73 degrees GEMUSE T Anza 36 degrees GEMUSE ECG Interpretation Normal sinus rhythm Normal ECG When compared with ECG of 16-JUL-2024 23:11, No significant change was found Confirmed by HERNANDEZ SIMPSON ([id number]) on 07/19/2024 10:51:56 PM GEMUSE 07/18/2024 6:26 PM EST 07/19/2024 10:51 PM EST Jesus Alberto Farah MD ECG ORDERABLES Performing Organization Address City/[facility]/ZIP Co de Phone Number GEMUSE * (ABNORMAL) POC glucose manually resulted (07/18/2024 6:08 PM EST) Glucose POC 171(A) 70 - 110 mg/dL Blood Capillary blood specimen / Unknown 07/18/2024 6:08 PM EST Jesus Alberto Farah MD POINT OF CARE KARLA T ENTER/EDIT ORDERABLES * (ABNORMAL) POCT Glucose, blood (07/18/2024 6:05 PM EST) Glucose POCT 171(H) 70 - 100 mg/dL 07/18/2024 6:07 PM EST [facility] Blood Capillary blood specimen / Unknown 07/18/2024 6:05 PM EST 07/18/2024 6:08 PM EST Jesus Alberto Farah MD LAB POINT OF CARE TEST DOCKED DEVICE UNSOLICITED RESULTS Performing Organization Address City/[facility]/ZIP Co de Phone Number [facility] [address] [place] [address], * Hemoglobin A1c (07/18/2024 4:47 PM EST) [facility] Hemoglobin A1C 4.9 <6.5 % LAB CHEMISTRY METHOD 07/19/2024 11:21 AM EST [facility] Mean Bld Glu Estim. 94 mg/dL LAB CHEMISTRY METHOD 07/19/2024 11:21 AM EST [facility] Blood Venous blood specimen / Unknown Venipuncture / Unknown 07/18/2024 4:47 PM EST 07/18/2024 4:55 PM EST Cipriano Almanza MD LAB BLOOD ORDERABLES [facility] [address] [place] [address], [place] [phone] * Ammonia (07/18/2024 4:47 PM EST) [facility] Ammonia 28 11 - 35 mcmol/L LAB CHEMISTRY METHOD 07/18/2024 5:30 PM EST [facility] Blood Venous blood specimen / Unknown Venipuncture / Unknown 07/18/2024 4:47 PM EST 07/18/2024 4:54 PM EST Jesus Alberto Farah MD LAB BLOOD ORDERAB LES Performing Organization Address City/[facility]/ZIP Co de Phone Number [facility] [address] [place] [address], [place] [phone] * (ABNORMAL) Comprehensive metabolic panel (07/18/2024 4:47 PM EST) Only the most recent of2 resultswithin the time period is included. [facility] Sodium 129(L) 133 - 145 mmol/L LAB CHEMISTRY METHOD 07/18/2024 5:38 PM EST [facility] Potassium 4.2 3.5 - 5.5 mmol/L LAB CHEMISTRY METHOD 07/18/2024 5:38 PM EST [facility] Chloride 95(L) 96 - 110 mmol/L LAB CHEMISTRY METHOD 07/18/2024 5:38 PM [facility] CO2 27 21 - 32 mmol/L LAB CHEMISTRY METHOD 07/18/2024 5:38 PM [facility] Anion Gap 7 3 - 11 LAB CHEMISTRY METHOD 07/18/2024 5:38 PM [facility] Glucose 90 70 - 100 mg/dL LAB CHEMISTRY METHOD 07/18/2024 5:38 PM [facility] BUN 14 5 - 25 mg/dL LAB CHEMISTRY METHOD 07/18/2024 5:38 PM [facility] Creatinine 0.50(L) 0.70 - 1.30 mg/dL LAB CHEMISTRY METHOD 07/18/2024 5:38 PM [facility] eGFR 112 >=60 mL/min/1. 73m2 LAB CHEMISTRY METHOD 07/18/2024 5:38 PM [facility] Comment:Calculation based on the??Chronic Kidney Disease Epidemiology Collaboration (CKD-EPI) equation refit??without adjustment for race. BUN/Creatinine Ratio 28.0 LAB CHEMISTRY METHOD 07/18/2024 5:38 PM [facility] Calcium 8.9 8.5 - 10.5 mg/dL LAB CHEMISTRY METHOD 07/18/2024 5:38 PM [facility] AST (SGOT) 24 10 - 42 unit/L LAB CHEMISTRY METHOD 07/18/2024 5:38 PM [facility] ALT (SGPT) 41 10 - 60 unit/L LAB CHEMISTRY METHOD 07/18/2024 5:38 PM [facility] Alkaline Phosphatase 104 42 - 121 unit/L LAB CHEMISTRY METHOD 07/18/2024 5:38 PM [facility] Total Protein 6.6 6.0 - 8.0 g/dL LAB CHEMISTRY METHOD 07/18/2024 5:38 PM [facility] Albumin 3.5 3.2 - 5.0 g/dL LAB CHEMISTRY METHOD 07/18/2024 5:38 PM EST [facility] Total Bilirubin 0.8 0.0 - 1.4 mg/dL LAB CHEMISTRY METHOD 07/18/2024 5:38 PM EST [facility] Blood Venous blood specimen / Unknown Venipuncture / Unknown 07/18/2024 4:47 PM EST 07/18/2024 4:55 PM EST Jesus Alberto Farah MD LAB BLOOD ORDERAB LES [facility] [address] [place] [address], * ECG-Annotated (07/18/2024) Only the most recent of3 resultswithin the time period is included. Provider Onbase MD ECG ORDERABLES * Hepatic Function Panel (07/17/2024 3:33 AM EST) Total Protein 6.2 6.0 - 8.0 g/dL LAB CHEMISTRY METHOD 07/17/2024 4:02 AM [facility] Albumin 3.2 3.2 - 5.0 g/dL LAB CHEMISTRY METHOD 07/17/2024 4:02 AM [facility] Total Bilirubin 0.7 0.0 - 1.4 mg/dL LAB CHEMISTRY METHOD 07/17/2024 4:02 AM [facility] Bilirubin, Direct 0.3 0.0 - 0.3 mg/dL LAB CHEMISTRY METHOD 07/17/2024 4:02 AM [facility] Bilirubin, Indirect 0.4 0.0 - 1.1 mg/dL LAB CHEMISTRY METHOD 07/17/2024 4:02 AM [facility] ALT (SGPT) 37 10 - 60 unit/L LAB CHEMISTRY METHOD 07/17/2024 4:02 AM [facility] AST (SGOT) 21 10 - 42 unit/L LAB CHEMISTRY METHOD 07/17/2024 4:02 AM EST [facility] Alkaline Phosphatase 95 42 - 121 unit/L LAB CHEMISTRY METHOD 07/17/2024 4:02 AM EST [facility] Blood Venous blood specimen / Unknown Venipuncture / Unknown 07/17/2024 3:33 AM EST 07/17/2024 3:38 AM EST Han DELGADO LAB BLOOD ORDERABLES [facility] [address] [place] [address], * XR Chest 2 Views (07/17/2024 3:06 AM EST) Only the most recent of2 resultswithin the time period is included. Anatomical Region Laterality Modality Body Radiographic Ifeoma ging 07/17/2024 8:00 AM EST Impressions 07/17/2024 8:02 AM EST No pneumonia or edema. Focal elevation of the right hemidiaphragm appears similar to previous. -------- FINAL REPORT -------- Dictated By: Quentin De Jesus Dictated Date: 07/17/2024 08:00 ET Assigned Physician: Quentin De Jesus Reviewed and Electronically Signed By: Quentin De Jesus Signed Date: 07/17/2024 08:02 ET Workstation ID: [id number] Transcribed By: Self Edit Transcribed Date: 07/17/2024 08:00 ET Narrative 07/17/2024 8:02 AM EST EXAMINATION: CHEST CLINICAL INFORMATION: Sore throat. The patient has undergone chemotherapy for tonsillar cancer COMPARISON: Frontal view 07/08/2024 TECHNIQUE: 2 views of the chest FINDINGS: There is a reservoir associated with a right-sided vascular catheter with tip projecting at the lower SVC region. The cardiac size, mediastinal contours, burt and vasculature are within normal limits. There is unchanged moderate relative elevation right hemidiaphragm. There is no pneumonia or edema. No pneumothorax or pleural fluid. There are surgical clips in the right upper quadrant. Tube or drain likely a gastrostomy projects over the epigastric region. Procedure Note Quentin De Jesus MD - 07/17/2024 EXAMINATION: CHEST CLINICAL INFORMATION: Sore throat. The patient has undergone chemotherapy for tonsillar cancer COMPARISON: Frontal view 07/08/2024 TECHNIQUE: 2 views of the chest FINDINGS: There is a reservoir associated with a right-sided vascular catheter withtip projecting at the lower SVC region. The cardiac size, mediastinal contours, burt and vasculature are withinnormal limits. There is unchanged moderate relative elevation righthemidiaphragm. There is no pneumonia or edema. No pneumothorax or pleural fluid. There are surgical clips in the right upper quadrant. Tube or drain likelya gastrostomy projects over the epigastric region. IMPRESSION: No pneumonia or edema. Focal elevation of the right hemidiaphragm appears similar to previous. -------- FINAL REPORT -------- Dictated By: Quentin De Jesus Dictated Date: 07/17/2024 08:00 ET Assigned Physician: Quentin De Jesus Reviewed and Electronically Signed By: Quentin De Jesus Signed Date: 07/17/2024 08:02 ET Workstation ID: [id number] Transcribed By: Self Edit Transcribed Date: 07/17/2024 08:00 ET Han DELGADO IMG XR PROCEDURES * Sodium, urine, random (07/08/2024 6:49 AM EST) Sodium, Ur 78 mmol/L LAB CHEMISTRY METHOD 07/08/2024 8:28 AM EST [facility] Urine Urine specimen from urethra / Unknown Non-blood Collection / Unknown 07/08/2024 6:49 AM EST 07/08/2024 7:03 AM EST Fidelina DELGADO LAB URINE ORDERABLES [facility] [address] [place] [address], * Osmolality, urine (07/08/2024 6:49 AM EST) [facility] Osmolality, Urine 367 300 - 1,300 mOsm/kg LAB CHEMISTRY METHOD 07/08/2024 7:53 AM EST [facility] Urine Urine specimen obtained by clean catch procedure / Unknown Non-blood Collection / Unknown 07/08/2024 6:49 AM EST 07/08/2024 7:03 AM EST Fidelina DELGADO LAB URINE ORDERABLES Performing Organization Address City/[facility]/ZIP Co de Phone Number [facility] [address] [place] [address], [place] [phone] * (ABNORMAL) Vitamin B12 and folate (07/08/2024 12:02 AM EST) [facility] Vitamin B-12 1,178(H) 250 - 900 pcg/mL LAB CHEMISTRY METHOD 07/08/2024 3:58 AM EST [facility] Folate 18.1(H) 2.8 - 17.0 ng/ml LAB CHEMISTRY METHOD 07/08/2024 3:58 AM EST [facility] Blood Venous blood specimen / Unknown Venipuncture / Unknown 07/08/2024 12:02 AM EST 07/08/2024 12:45 AM EST Fidelina DELGADO LAB BLOOD ORDERABLES [facility] [address] [place] [address], [place] [phone] * (ABNORMAL) Iron and TIBC (07/08/2024 12:02 AM EST) [facility] Iron 61 50 - 160 mcg/dL LAB CHEMISTRY METHOD 07/08/2024 3:16 AM EST [facility] TIBC 228(L) 250 - 450 mcg/dL LAB CHEMISTRY METHOD 07/08/2024 3:16 AM EST [facility] Iron Saturation 27 20 - 50 % LAB CHEMISTRY METHOD 07/08/2024 3:16 AM EST [facility] Blood Venous blood specimen / Unknown Venipuncture / Unknown 07/08/2024 12:02 AM EST 07/08/2024 12:45 AM EST iFdelina DELGADO LAB BLOOD ORDERABLES Performing Organization Address City/[facility]/ZIP Co de Phone Number [facility] [address] [place] [address], [place] [phone] * (ABNORMAL) Osmolality (07/08/2024 12:02 AM EST) Osmolality Puma 272(L) 280 - 300 mOsm/kg LAB CHEMISTRY METHOD 07/08/2024 1:19 AM EST [facility] Blood Venous blood specimen / Unknown Venipuncture / Unknown 07/08/2024 12:02 AM EST 07/08/2024 12:45 AM EST Fidelina DELGADO LAB BLOOD ORDERABLES Performing Organization Address City/[facility]/ZIP Co de Phone Number [facility] [address] [place] [address], [place] [phone] * (ABNORMAL) Ferritin (07/08/2024 12:02 AM EST) Ferritin 617(H) 26 - 388 ng/mL LAB CHEMISTRY METHOD 07/08/2024 3:58 AM EST [facility] Blood Venous blood specimen / Unknown Venipuncture / Unknown 07/08/2024 12:02 AM EST 07/08/2024 12:45 AM EST Fidelina DELGADO LAB BLOOD ORDERABLES [facility] [address] [place] [address], [place] [phone] * (ABNORMAL) Culture urine (07/07/2024 4:42 PM EST) [facility] Culture, Urine 10,000-49,000 CFU/mL Escherichia coli(A) SNEHAL 07/09/2024 10:09 AM EST [facility] Urine Urine specimen obtained by clean catch procedure / Unknown Non-blood Collection / Unknown 07/07/2024 4:42 PM EST 07/07/2024 5:45 PM EST Narrative Organism Antibiotic Method Susceptibility Escherichia coli Amoxicillin/Clavulanate SNEHAL <=2 ug/ml: Susceptible Escherichia coli Ampicillin/Sulbactam SNEHAL <=2 ug/ml: Susceptible Escherichia coli Piperacillin/Tazobactam SNEHAL <=4 ug/ml: Susceptible Escherichia coli Cefazolin (Urine) SNEHAL <=1 ug/ml: Susceptible Escherichia coli Cefoxitin SNEHAL <=4 ug/ml: Susceptible Escherichia coli Ceftazidime SNEHAL <=0.5 ug/ml: Susceptible Escherichia coli Ceftriaxone SNEHAL <=0.25 ug/ml: Susceptible Escherichia coli Cefepime SNEHAL <=0.12 ug/ml: Susceptible Escherichia coli Meropenem SNEHAL <=0.25 ug/ml: Susceptible Escherichia coli Amikacin SNEHAL 2 ug/ml: Susceptible Escherichia coli Gentamicin SNEHAL <=1 ug/ml: Susceptible Escherichia coli Ciprofloxacin SNEHAL <=0.06 ug/ml: Susceptible Escherichia coli Levofloxacin SNEHAL <=0.12 ug/ml: Susceptible Escherichia coli Nitrofurantoin SNEHAL <=16 ug/ml: Susceptible Escherichia coli Trimethoprim/Sulfamethoxazole SNEHAL <=20 ug/ml: Susceptible Julio Krugre MD LAB MICROBIOLOGY - GENERAL ORDERABLES [facility] [address] [place] [address], * Respiratory virus panel molecular study (07/07/2024 3:14 PM EST) [facility] Adenovirus Detection by PCR Not Detected Not Detected LAB MICROBIOLOGY METHOD 07/07/2024 4:35 PM EST [facility] Influenza A PCR Not Detected Not Detected LAB MICROBIOLOGY METHOD 07/07/2024 4:35 PM EST [facility] Influenza B PCR Not Detected Not Detected LAB MICROBIOLOGY METHOD 07/07/2024 4:35 PM EST [facility] Coronavirus 229E Not Detected Not Detected LAB MICROBIOLOGY METHOD 07/07/2024 4:35 PM [facility] Coronavirus HKU1 Not Detected Not Detected LAB MICROBIOLOGY METHOD 07/07/2024 4:35 PM [facility] Coronavirus OC43 Not Detected Not Detected LAB MICROBIOLOGY METHOD 07/07/2024 4:35 PM [facility] Coronavirus NL63 Not Detected Not Detected LAB MICROBIOLOGY METHOD 07/07/2024 4:35 PM [facility] Parainfluenza Virus 1 Not Detected Not Detected LAB MICROBIOLOGY METHOD 07/07/2024 4:35 PM [facility] Parainfluenza Virus 2 Not Detected Not Detected LAB MICROBIOLOGY METHOD 07/07/2024 4:35 PM [facility] Parainfluenza Virus 3 Not Detected Not Detected LAB MICROBIOLOGY METHOD 07/07/2024 4:35 PM [facility] Parainfluenza Virus 4 Not Detected Not Detected LAB MICROBIOLOGY METHOD 07/07/2024 4:35 PM [facility] RSV PCR Not Detected Not Detected LAB MICROBIOLOGY METHOD 07/07/2024 4:35 PM [facility] Human Metapneumovirus A and B Not Detected Not Detected LAB MICROBIOLOGY METHOD 07/07/2024 4:35 PM [facility] Rhinovirus/Entero virus Not Detected Not Detected LAB MICROBIOLOGY METHOD 07/07/2024 4:35 PM [facility] Bordetella pertussis Not Detected Not Detected LAB MICROBIOLOGY METHOD 07/07/2024 4:35 PM [facility] Bordetella parapertussis Not Detected Not Detected LAB MICROBIOLOGY METHOD 07/07/2024 4:35 PM [facility] Mycoplasma pneumo by PCR Not Detected Not Detected LAB MICROBIOLOGY METHOD 07/07/2024 4:35 PM EST [facility] Chlamydia pneumoniae Not Detected Not Detected LAB MICROBIOLOGY METHOD 07/07/2024 4:35 PM EST [facility] SARS COV-2 Not Detected Not Detected LAB MICROBIOLOGY METHOD 07/07/2024 4:35 PM EST [facility] Swab Both anterior nares / Unknown Non-blood Collection / Unknown 07/07/2024 3:14 PM EST 07/07/2024 3:42 PM EST Narrative [facility] - 07/07/2024 4:35 PM EST Testing was performed using the [employer] Respiratory Pathogen PCR Assay. All results must be correlated with the clinical findings. Results should not be used as the sole basis for diagnosis. False Negative results may occur from the presence of sequence variants in the region targeted by the assay or the presence of inhibitors. Results may be affected by concurrent antiviral/antimicrobial therapy or levels of organisms that are below the limit of detection. Julio Kruger MD LAB MICROBIOLOGY - GENERAL ORDERABLES [facility] [address] [place] [address], * CT Head wo Contrast (07/07/2024 2:52 PM EST) Anatomical Region Laterality Modality Head and Neck Computed Tomogra phy 07/07/2024 2:59 PM EST Impressions 07/07/2024 3:01 PM EST No acute intracranial abnormality. Fluid with aerosolized secretions in the right sphenoid and maxillary sinuses may represent sinusitis in the proper clinical setting -------- FINAL REPORT -------- Dictated By: HUGH BALDERAS Dictated Date: 07/07/2024 14:59 ET Assigned Physician: HUGH BALDERAS Reviewed and Electronically Signed By: HUGH BALDERAS Signed Date: 07/07/2024 15:01 ET Workstation ID: [id number] Transcribed By: Self Edit Transcribed Date: 07/07/2024 14:59 ET Narrative 07/07/2024 3:01 PM EST PROCEDURE: HEAD CT INDICATION: Dizziness TECHNIQUE: CT of the head without intravenous contrast. Multiplanar reformats. The examination was performed utilizing dose reduction techniques. Total DLP comparison 70 COMPARISON: ??No priors available. FINDINGS: ?? No acute territorial infarct, mass effect, or intracranial hemorrhage. Mild scattered periventricular and subcortical white matter hypodensities are most likely related to chronic small vessel ischemic change. Ventricles, sulci, and cisterns are normal in size and configuration. No hydrocephalus or volume loss. Fluid with aerosolized secretions in the right sphenoid and maxillary sinuses. ??Remainder the sinuses and mastoid air cells are clear. No scalp hematoma or skull fracture. Procedure Note Hugh Balderas MD - 07/07/2024 PROCEDURE: HEAD CT INDICATION: Dizziness TECHNIQUE: CT of the head without intravenous contrast. Multiplanarreformats. The examination was performed utilizing dose reductiontechniques. Total DLP comparison 70 COMPARISON: No priors available. FINDINGS: No acute territorial infarct, mass effect, or intracranial hemorrhage. Mild scattered periventricular and subcortical white matter hypodensitiesare most likely related to chronic small vessel ischemic change. Ventricles, sulci, and cisterns are normal in size and configuration. Nohydrocephalus or volume loss. Fluid with aerosolized secretions in the right sphenoid and maxillarysinuses. Remainder the sinuses and mastoid air cells are clear. No scalp hematoma or skull fracture. IMPRESSION: No acute intracranial abnormality. Fluid with aerosolized secretions in the right sphenoid and maxillarysinuses may represent sinusitis in the proper clinical setting -------- FINAL REPORT -------- Dictated By: HUGH BALDERAS Dictated Date: 07/07/2024 14:59 ET Assigned Physician: HUGH BALDERAS Reviewed and Electronically Signed By: HUGH BALDERAS Signed Date: 07/07/2024 15:01 ET Workstation ID: [id number] Transcribed By: Self Edit Transcribed Date: 07/07/2024 14:59 ET Julio Kruger MD [facility] [place] PROCEDURES * Troponin I high sensitivity (07/07/2024 2:11 PM EST) High Sensitivity Troponin I 4 <=79 ng/L LAB CHEMISTRY METHOD 07/07/2024 2:54 PM EST [facility] Blood Venous blood specimen / Unknown Venipuncture / Unknown 07/07/2024 2:11 PM EST 07/07/2024 2:20 PM EST Narrative [facility] - 07/07/2024 2:54 PM EST High levels of biotin in samples may falsely decrease hsTroponin values. ??Use caution when interpreting hsTroponin results in patients taking biotin who exhibit renal impairment (eGFR <60) or in patients taking more than 20 mg/day of biotin. Reilly Núñez MD LAB BLOOD ORDERABLE S Performing Organization Address [facility]/ZIP Co de Phone Number [facility] [address] [place] [address], [place] [phone] * Creatine kinase (07/07/2024 2:11 PM EST) [facility] Total CK 43 22 - 269 unit/L LAB CHEMISTRY METHOD 07/07/2024 2:49 PM EST [facility] Blood Venous blood specimen / Unknown Venipuncture / Unknown 07/07/2024 2:11 PM EST 07/07/2024 2:20 PM EST Sienna DELGADO LAB BLOOD ORDERABLES Performing Organization Address [facility]/ZIP Co de Phone Number [facility] [address] [place] [address], [place] [phone] * [place] REPLACEMENT/REMOVAL GASTROSTOMY TUBE PERCUTANOUS W/O GUIDANCE, HC INSERT/CHANGE GASTRIC TUBE (06/10/2024 8:38 PM EST) Narrative Rolando Vaughn MD - 06/10/2024 8:38 PM EST DANNY Snyder ? 06/10/2024 ??9:00 PM Feeding Tube Replacement Date/Time: 06/10/2024 8:38 PM Performed by: DANNY Snyder Authorized by: Rolando Vaughn MD ?? Consent: ??Consent obtained: ??Verbal ??Consent given by: ??Patient ??Risks, benefits, and alternatives were discussed: yes ?Risks discussed: ??Bleeding, infection and pain ??Alternatives discussed: ??Delayed treatment Bradford protocol: ??Patient identity confirmed: ??Verbally with patient and arm band Pre-procedure details: ??Old tube type: ??Gastrostomy ??Old tube size: ??16 Fr Sedation: ??Sedation type: ??None Anesthesia: ??Anesthesia method: ??None Procedure details: ??Patient position: ??Supine ??Procedure type: ??Replacement ??Tube type: ??Gastrostomy ??Tube size: ??16 Fr ??Bulb inflation volume: ??5ml ??Bulb inflation fluid: ??Sterile water Post-procedure details: ??Placement/position confirmation: ??X-ray and contrast ??Placement difficulty: ??None ??Bleeding: ??None ??Procedure completion: ??Tolerated well, no immediate complications Rolando Vaughn MD IN CLINIC/BEDSIDE OR DERABLES * XR Abdomen 1 View (06/10/2024 8:37 PM EST) Anatomical Region Laterality Modality Body Radiographic Ifeoma ging 06/11/2024 8:10 AM EST Impressions 06/11/2024 8:12 AM EST Contrast present within the gastric lumen and proximal small bowel. Postoperative changes -------- FINAL REPORT -------- Dictated By: Quentin De Jesus Dictated Date: 06/11/2024 08:10 ET Assigned Physician: Quentin De Jesus Reviewed and Electronically Signed By: Quentin De Jesus Signed Date: 06/11/2024 08:12 ET Workstation ID: [id number] Transcribed By: Self Edit Transcribed Date: 06/11/2024 08:10 ET Narrative 06/11/2024 8:12 AM EST EXAMINATION: ABDOMEN CLINICAL INFORMATION: Evaluate gastrostomy tube COMPARISON: None. TECHNIQUE: Portable supine view of the abdomen. Reportedly 30 mL of Gastrografin was injected into the G-tube by the provider at bedside FINDINGS: Contrast present within the gastrostomy tube. The balloon projects within the gastric lumen. Contrast opacifies some of the stomach and region of duodenum. On the single view submitted there is no extraluminal contrast. There are surgical clips in the right upper quadrant. Metallic suture in the right midabdomen. Suture in the region of the rectum. Procedure Note Quentin De Jesus MD - 06/11/2024 EXAMINATION: ABDOMEN CLINICAL INFORMATION: Evaluate gastrostomy tube COMPARISON: None. TECHNIQUE: Portable supine view of the abdomen. Reportedly 30 mL of Gastrografin was injected into the G-tube by theprovider at bedside FINDINGS: Contrast present within the gastrostomy tube. The balloon projects withinthe gastric lumen. Contrast opacifies some of the stomach and region ofduodenum. On the single view submitted there is no extraluminal contrast. There aresurgical clips in the right upper quadrant. Metallic suture in the rightmidabdomen. Suture in the region of the rectum. IMPRESSION: Contrast present within the gastric lumen and proximal small bowel.Postoperative changes -------- FINAL REPORT -------- Dictated By: Quentin De Jesus Dictated Date: 06/11/2024 08:10 ET Assigned Physician: Quentin De Jesus Reviewed and Electronically Signed By: Quentin De Jesus Signed Date: 06/11/2024 08:12 ET Workstation ID: [id number] Transcribed By: Self Edit Transcribed Date: 06/11/2024 08:10 ET Han DELGADO IMG XR PROCEDURES from Last 3 Months Advance Directives * Full Code - Default (Latest Code Status on File) Date Activated Date Inactivated Comments 07/19/2024 6:18 AM 07/20/2024 2:34 PM This is orde r is used when code status has not been discussed with the patient, or code status is otherwise unknown/unconfirmed To update the patient's code status, place a code status order. Do not modify or discontinue any currently active code status orders. * Full Code - Default Date Activated Date Inactivated Comments 07/07/2024 8:23 PM 07/08/2024 6:06 PM This is orde r is used when code status has not been discussed with the patient, or code status is otherwise unknown/unconfirmed To update the patient's code status, place a code status order. Do not modify or discontinue any currently active code status orders. Care Teams Cage Cashier Relationship Specialty Start Date End Date Min Mckenzie MD [address] [place] [phone] PCP - General Internal Medicine 05/03/13
--- OUTSIDE RECORDS SUMMARY | 2024-07-25 14:00 | XMS_ITS | Encounter Summary ---
Author Organization [facility] Address [address] [place] [address] Care Team Providers Care Robotics Mechanic Name Role Phone Min Mckenzie MD Primary Care Provider [phone] Reason for Visit * Reason Comments Altered Mental Status Was seen here 2 da ys ago for hallucinations, speech changes, dehydration and difficulty swallowing. Here for same symptoms. Hx throat ca * Auth/Cert (Routine) Specialty Diagnoses / Procedures Referred By Contac t Referred To Contact Diagnoses Weakness Procedures [id number] Cipriano Almanza MD [address] [place] [address] [facility] Emergency [address] [place] [address] Referral ID Status Reason Start Date Expiration Date Visits Re quested Visits Authorized [id number] 1 1 Encounter Details Date Type Department Care Team (Late st Contact Info) Description 07/18/2024 4:00 PM EST - 07/20/2024 12:19 PM [facility] Emergency [facility] Emergency [address] [place] [address] Jesus Alberto Farah MD [address] [place] [address] Eduardo Nicole MD [address] [place] [address] Cipriano Almanza MD [address] [place] [id number] Guru Gallagher MD [address] [place] [address] Gennaro Luke MD [address] [place] [address] Dysphagia, unspecified type (Primary Dx); Unstable gait Discharge Disposition: Home-Health Care Svc Social History Tobacco Use Types Packs/Day Years [...] ed Within the last 3 months, ho genevieve many times did you visit the emergency [...] your loved ones. For example, child care assistant or elderly care for an older adult? [...] on file documented as of this encounter Last Filed Vital Signs Vital Sign Reading [...] Mass Index 25.09 07/19/2024 2:33 PM EST documented in this encounter Functional Status Functional Status Response [...] No 07/18/2024 documented as of this encounter Discharge Summaries * Luann Kirby NP - 07/20/2024 10:16 AM EST Images from the original note were not included. RUSSELL DISCHARGE SUMMARY Patient Information Wood Rios : 1955 [68 y.o.] Admitting Provider Cipriano Almanza MD Discharge Provider Luann Kibry NP, Gennaro Luke MD Primary Care Physician Min Mckenzie MD Admission Date 07/18/2024 Discharge Date 07/20/2024 Summary of Hospital Problems Presenting Chief Complaint: Confusion and weakness Unsteady gait Primary Discharge Diagnosis: Acute Encephalopathy due to medication changes Gait disturbance Hypomagnesemia Hyponatremia Dysphagia Tonsillar Cancer S/P chemotherapy and radiation therapy G-tube status Moderate Malnutrition Depression Secondary Discharge Diagnosis: CAD history of [place] Anemia of chronic disease Hyperlipidemia History of colorectal cancer Discharge Destination: Home with VNA services Code Status at Discharge: FULL CODE Inpatient Consultants: Seen by Psychiatrist Dr. Naveed BARNARD Please see note and recommendations below: ASSESSMENT: Wood Rios is a 68 y.o. male with psychiatric history significant for depression and medical history significant for but not limited to throat cancer, CAD, [place], HTN, hyponatremia, gallstone pancreatitis, and failure to thrive who is in ED for AMS. Psychiatry was consulted for depression and due to concern about patient refusing some treatment. DSM-5 DIAGNOSIS: Capacity evaluation MDD, recurrent, moderate, with seasonal coponent Throat cancer, CAD, [place], HTN, hyponatremia, gallstone pancreatitis, and failure to thrive In ED for AMS TREATMENT PLAN: Pt has verbalized understanding and given consent/agreement with medications and plan offered. LEVEL OF CARE: Continue current level of treatment. RECOMMENDATIONS: Discontinue Wellbutrin XL. This medication was recently increased, and the patient subsequently experienced new-onset VH. This is a phenomenon that sometimes occurs with the use of Wellbutrin XL as that medication has dopiminergic properties. Recommend patient to not restart that medication and to see PCP for switch to a new antidepressant for management of his depression. Of note, the patient retains/has regained medical decision-making capacity. He should be permitted to make his own medical decisions at present. Called the patient's and discussed the recommendations above, per patient's request. She does not agree that the patient has capacity despite having the perimeters of capacity explained multipletimes in multiple ways. Medication Education: Risks, benefits, alternatives, and potential side effects were discussed withthe patient. Patient voiced understanding and agreed with medication regimen described above. Pertinent Imaging Findings: Lab Results Component Value Date WBC 7.2 07/19/2024 RBC 4.20 (L) 07/19/2024 HGB 13.6 07/19/2024 HCT 39.4 (L) 07/19/2024 MCV 94.3 07/19/2024 MCHC 34.5 07/19/2024 RDW 13.9 07/19/2024 PLT 158 07/19/2024 MPV 8.8 07/19/2024 NRBC 0.0 07/19/2024 DIFF Lab Results Component Value Date LYMPHOPCT 9.8 07/19/2024 NEUTROABS 6.07 07/19/2024 LYMPHSABS 0.71 (L) 07/19/2024 MONOABS 0.40 07/19/2024 EOSABS 0.00 07/19/2024 BASOSABS 0.00 07/19/2024 IMMGRANABS 0.05 (H) 07/19/2024 RETIC No results found for: RETIC , RETICCTPCT PROCEDURE: Noncontrast MRI of the brain. HISTORY: Neuro deficit, acute, stroke suspected Mental status change, unknown cause. COMPARISON: Head CT 07/10/2024. TECHNIQUE: Multiplanar multisequence MRI of the brain without intravenous contrast administration. FINDINGS: This study is mildly limited by patient motion. BRAIN: No diffusion abnormality. No mass or extra-axial fluid collection. No hydrocephalus. The major intracranial flow voids are preserved. Age commensurate ventricles and sulci. ORBITS: Normal. SINUSES/MASTOIDS: Minimal mucosal thickening in the ethmoid air cells and inferior left maxillary antrum. Small amount of fluid in the left mastoids and trace fluid in the right mastoids. Mild mucosal thickening and layering debris in the rightward sphenoid sinus. CALVARIUM: Normal. OTHER: The visualized skull base soft tissues are normal. IMPRESSION: 1. No acute infarct. No acute findings. 2. Paranasal sinus disease as detailed above. Layering debris in the rightward sphenoid sinus couldbe secondary to acute sinusitis in the appropriate clinical setting. -------- FINAL REPORT -------- Narrative & Impression CT soft tissue neck with contrast Comparison: [...] to radition pneumonitis or fibrosis given history. Procedures Performed: None Please see HPI from history and physical by Flakita Dobson ELECTRONIC TRAIN CONTROL TECHNICIAN below: History of present illness: This is a 68-year-old male with a past medical history significant for tonsillar cancer and continued dysphagia. He has a G-tube. He comes in with complaints of generalized weakness and poor p.o. intake. He apparently was having nightmares visual [place] while falling asleep. He also reports that he is generally unable to take much food and and is continually losing weight. States that he has been so weak that he has to hold onto things to walk. He was brought in for stroke rule outhad a chest x-ray which was negative for acute process he then had a brain CT done without contrastwhich was negative. He had a neck CT which showed no visible mass or other structural abnormality and patient with history of advanced head/neck cancer no abscess or edema. There are biapical coarse lung consolidations possibly related to radiation pneumonitis or fibrosis given his history. The time of this interview he is awake answering questions not in acute distress. Hospital Course Summary Acute Encephalopathy likely due to medications D/C Wellbutrin Brain MRI showin. No acute infarct. No acute findings. 2. Paranasal sinus disease as detailed above. Layering debris in the rightward sphenoid sinus couldbe secondary to acute sinusitis in the appropriate clinical setting. Wellbutrin was recently increased and may have caused his neurological symptoms No focal neurologic deficits upon exam today Awake and alert this am Seen by Psychiatrist who recommended discontinuing Wellbutrin Follow up with PCP for further management and evaluation Gait disturbance Due to above PT evaluation pending Hypomagnesemia Resolved Moderate malnutrition Speech evaluation (see note) Continue G-tube feedings NPO Follow up with Speech as outpatient BMI is 25 As above Dysphagia Continue G-tube feedings Follow up with speech as outpatient G-tube status Continue G-tube feedings per edge trimming machine operator recommendations Tonsillar cancer S/P chemotherapy and Radiation therapy Scheduled to have outpatient PET for further evaluation and management 9. Hyponatremia resolved Sodium this am is 133 10. CAD history of [place] Continue ASA and Metoprolol and Statin 11. Anemia of chronic disease H and H stable 13 and 39 12. Hyperlipidemia Continue statin 13. Depression Continue Prozac for now D/C Wellbutrin per psych recommendations Follow up with PCP for further management and evaluation 14. FULL CODE Follow-Up Instructions and Recommendations Discontinue Wellbutrin Follow up with PCP in one week Discharge Medications Your medication list CONTINUE taking these medications Instructions Last Dose Given Next Dose Due atorvastatin 40 mg tablet Commonly known as: LIPITOR Take 1 tablet (40 mg total) by mouth at bedtime. FLUoxetine 20 mg capsule Commonly known as: PROzac Take 1 capsule (20 mg total) by mouth 1 (one) time each day. metoprolol succinate 50 mg 24 hr tablet Commonly known as: TOPROL-XL Take 1 tablet (50 mg total) by mouth 1 (one) time each day. pantoprazole 40 mg EC tablet Commonly known as: PROTONIX Take 1 tablet (40 mg total) by mouth 1 (one) time each day. Physical Exam at time of Discharge GENERAL: Patient is awake and alert and oriented X 4 Sitting up on stretcher In no acute distress HEENT: Patient is normocephalic atraumatic pupils round and reactive no scleral icterus EOMI. Oral mucous membranes are pink and moist neck is supple without JVD. Trachea is midline CARDIAC: S1 and S2 heard without murmurs rubs gallops. RESPIRATORY: Lungs are clear to auscultation. No wheezing rales or rhonchi. No accessory muscle use. GI: Abdomen is soft no guarding no rebound tenderness bowel sounds are present. Has a G-tube in place. : Deferred EXTREMITIES: No asymmetrical edema distal pulses are palpable. Feet are warm and well perfused withcapillary refill less than 2 seconds. NEUROLOGICAL: NO focal deficits upon exam Cranial nerves II through XII are intact strength is 5/5. There is no pronator drift. Positive finger to nose. Babinski is downgoing. Vitals Visit Vitals BP (!) 143/84 (BP Location: Left arm, Patient Position: Lying) Pulse 66 Temp 36.4 ??C (97.5 ??F) (Oral) Resp 18 Temp (24hrs), Av.5 ??C (97.7 ??F), Min:36.4 ??C (97.5 ??F), Max:36.6 ??C (97.9 ??F) Body mass index is 25.09 kg/m??. No results found for: PTWT , PTHT Greater than 45 minutes spent on day of discharge. Discharge planning was discussed with Dr. Luke who agrees with the above assessment and plan Associated attestation - Gennaro Luke MD - 07/20/2024 2:11 PM EST This is a split/shared visit with Luann Kirby NP. I personally performed the medical decision making (MDM) for the care of this patient on 07/20/24 as documented below I agree with midlevel provider's care and appreciate input from psychiatrist. I reviewed chart and also MRI result which was negative for CVA. Patient is stable for discharge. Gennaro Luke MD 07/20/24 2:11 PM EST documented in this encounter Medications at Time of Discharge Medication Sig Dispensed Refills Start Date End Date atorvastatin (LIPITOR) 40 mg tablet Take 1 tablet (40 mg total) by mouth at bedtime. 09/08/2023 metoprolol succinate (TOPROL-XL) 50 mg 24 hr tablet Take 1 tablet (50 mg total) by mouth 1 (one) time each day. pantoprazole (PROTONIX) 40 mg EC tablet Take 1 tablet (40 mg total) by mouth 1 (one) time each day. 09/08/2023 FLUoxetine (PROzac) 20 mg capsuleIndications:anxiet y with depression Take 1 capsule (20 mg total) by mouth 1 (one) time each day. documented as of this encounter Discharge Disposition Disposition Code Departure Means Destination Comment s Home-Health Care Svc documented in this encounter Progress Notes * Alexandria Campbell RN - 07/20/2024 10:45 AM EST 07/20/24 1045 ED Transition Plan ED Transition Plan Transitioned Home Transportation Transportation at discharge Family Final Discharge Disposition Home or Self Care Per PT/OT no services recommended. Spouse declining home care referral. Pt will discharge from Ed home with family and current services through [facility]. Nurse Caitlyn/ALBAN Kirby aware of plan. * Alexandria Campbell RN - 07/20/2024 9:00 AM EST 07/20/24 0859 Initial Transition Plan Initial Transition Plan Home Back up Transition Plan Back up Transition plan Home Discharge Planning Contact (Name, Phone #, Relationship) for DC Planning Katharina Rios spouse [phone] Living Arrangements Spouse/significant other Type of Residence Private residence (two story with four steps to enter home) Assistive Devices None Support Systems Spouse/significant other Medication Coverage Has Med Coverage Under Insurance Plan Yes Medication Affordability No concerns related to payment for meds Informed Choice Informed Choice Given? Yes (choice form completed) Transportation Transportation at discharge Family Spoke with spouse Katharina in regards to discharge planning, demographics, PCP, insurance reviewed. Ptis not a . Uses [facility] [place], [place]. Pt has tube feeds supplied by [facility]. Spouse reports she is HCP copy on file at home. [facility] Spouse declines referral to [facility]NA at this time. Per Kalee PT no services recommended. * Luann Kirby NP - 07/20/2024 8:30 AM EST Diagnoses: Acute Encephalopathy (unclear if metabolic or toxic) Gait disturbance Hypomagnesemia Moderate malnutrition BMI is 25 Dysphagia G-tube status History of Tonsillar cancer S/P chemotherapy and Radiation therapy 9. Hyponatremia 10. CAD history of [place] 11. Anemia of chronic disease 12. Hyperlipidemia 13. Depression 14. DVT prophylaxis 15. FULL CODE * Kalee Lopez, PT - 07/20/2024 8:00 AM EST [facility] Physical Therapy Evaluation & Treatment PT Discharge Recommendations: Home independent Staff Recommendations for safe patient handling: supervision with ambulation with no assistive device Modified Toño Scale Score: Precautions Medical Precautions: Fall Risk Safety Interventions: Call luke within reach, ID band on RUE Weight Bearing Status: Full LUE Weight Bearing Status: Full RLE Weight Bearing Status: Full LLE Weight Bearing Status: Full Fall prevention education provided including use of call light in hospital, use of appropriate assistive device, safe mobility techniques, and safety measures at home. PT Received On: 07/20/24 PT Start Time: 0800 PT Stop Time: 0830 PT Time Calculation (min): 30 min General Family/Caregiver Present: No Precautions Medical Precautions: Fall Risk Safety Interventions: Call luke within reach, ID band on Swallow Precautions: Modified Diet, Aspiration RUE Weight Bearing Status: Full LUE Weight Bearing Status: Full RLE Weight Bearing Status: Full LLE Weight Bearing Status: Full Cognition Overall Cognitive Status: Within Functional Limits Orientation Level: Oriented X4 Hearing: Intact Vision: Intact Speech: speech low and mildly garbles related to dx of throat cancer Integumentary: no acute issues noted History of Present Illness: Patient is a 68 y.o. male admitted to [facility] on 07/18/2024. Patient Active Problem List Diagnosis Failure to thrive in adult S/P cholecystectomy Tonsil cancer (CMS/HCC) WILIAM on CPAP Hyperlipidemia GERD (gastroesophageal reflux disease) JULIET (generalized anxiety disorder) Depression, major, in remission (CMS/HCC) Essential hypertension Decreased testosterone level Atherosclerosis of coronary artery Benign prostatic hyperplasia Hyponatremia Weakness Moderate malnutrition (CMS/HCC) Past Medical History: Diagnosis Date CAD (coronary artery disease) Cancer ([facility]/HCC) Gallstone pancreatitis 07/07/2024 History of myocardial infarction 07/07/2024 Hypertension Past Surgical History: Procedure Laterality Date CHOLECYSTECTOMY Social History Home Living Environment: Home Living Type of Home: House Lives With: Spouse Home Adaptive Equipment: None Home Layout: Two level, 1/2 bath on main level, Bed/bath upstairs Home Access: Stairs to enter with rails Entrance Stairs-Rails: Rail on the right going up Entrance Stairs-Number of Steps: 3 Prior Function Level of [place]: Independent with mobility and functional transfers Ambulation Status: Household ambulator Receives Help From: Family Indoor Mobility Assistance: Independent Stairs Assistance : Independent Prior Device Use: No prior device use Do you drive?: Yes Mode of Transportation: Car General Assessment 07/20/24 0800 PT Last Visit PT Received On 07/20/24 General Family/Caregiver Present No PT Time Calculation PT Start Time 0800 PT Stop Time 0830 PT Time Calculation (min) 30 min Precautions Medical Precautions Fall Risk Safety Interventions Call luke within reach;ID band on RUE Weight Bearing Status Full LUE Weight Bearing Status Full RLE Weight Bearing Status Full LLE Weight Bearing Status Full Pain Assessment Pain Assessment No/denies pain Cognition Overall Cognitive Status WFL Home Living Type of Home House Lives With Spouse Home Adaptive Equipment None Home Layout Two level;1/2 bath on main level;Bed/bath upstairs Home Access Stairs to enter with rails Entrance Stairs-Rails Rail on the right going up Entrance Stairs-Number of Steps 3 Prior Function Level of [place] Independent with mobility and functional transfers Ambulation Status Household ambulator;Community ambulator Receives Help From Family Indoor Mobility Assistance Independent Stairs Assistance Independent Prior Device Use No prior device use Mode of Transportation Car Sensation Light Touch No apparent deficits Static Sitting Balance Static Sitting-Level of Assistance Independent Dynamic Sitting Balance Dynamic Sitting-Level of Assistance Independent Static Standing Balance Static Standing-Level of Assistance Supervision Dynamic Standing Balance Dynamic Standing-Level of Assistance Supervision Bed Mobility Sitting to Lying Assistance Independent Lying to Sitting Assistance Independent Transfers Sit to Stand Assistance Independent Chair/Bed to Chair/Bed Transfer Assistance Independent Ambulation Walking Assistance Supervision Device No device Distance Ambulated (ft) 100 Stairs 12 steps: Assistance Supervision (pt moves quickly on the stairs and given cues to slow down) Rails Right Device No device Number of Stairs 12 RUE Assessment RUE Assessment Within Functional Limits LUE Assessment LUE Assessment Within Functional Limits RLE Assessment RLE Assessment Within Functional Limits LLE Assessment LLE Assessment Within Functional Limits PT Assessment PT Assessment Results At baseline Prognosis Good Evaluation/Treatment Tolerance Patient tolerated treatment well Plan PT Plan No skilled PT PT Discharge Recommendations Home independent PT - Evaluation Status Complete PT - OK to Discharge Yes PT Evaluation Time Entry PT Evaluation (Moderate) Time Entry 30 Treatment performed during evaluation: None performed ADDITIONAL COMMENTS: Chart reviewed. RN clears pt for session. Pt agrees to participate and presented in supine upon PT arrival. All lines in place. Medical precautions observed appropriately. Initiated education on the importance of PT, bed mobility safety, Transfer Safety, Ambulation Safety , Therapy Plan of Care, Home Safety, Energy Conservations strategies, and importance of OOB activity . Pt verbalized understanding. EXIT STATUS: Session ended with patient supine in bed , tray table and call light within reach, and RN made aware. Physical Therapy Assessment/Plan Wood Rios is a 68 y.o. male admitted to [facility] on 07/18/2024 for Weakness [R53.1] . Pt presents with decreased BLE strength, balance deficits, decreased activity tolerance, and far below functional baseline. Pt performed bed mobility Independent, , Transfers with Independent, a nd ambulates Supervision with no AD 100 ft . PT recommends Home independent when medically stable for safe discharge and to optimize functional mobility and independence. Goals Encounter Problems Encounter Problems (Active) There are no active problems. Encounter Problems (Resolved) There are no resolved problems. Education Documentation Mobility Training, taught by Kalee Lopez PT at 07/20/2024 12:48 PM. Learner: Patient Readiness: Acceptance Method: Explanation Response: Verbalizes Understanding, Demonstrated Understanding Comment: pt moves quickly with all mobility and needed cues to dec pace with amb and on stairs withgood carryover Education Comments No comments found. Kalee Lopez PT * Tali Whitlock OT - 07/20/2024 7:30 AM EST [facility] Occupational Therapy Evaluation DATE: June TIME IN: 0730 TIME OUT: 0800 Pt: Wood Rios ROOM: W-/ Discharge Recommendation: Home without services Equipment Recommendation: none Staff recommendations for safe patient handlin person distant SPV without AD Assessment: Patient is a 68 y.o. y.o. male presenting for OT evaluation following admission due to weakness, AMS. Pt currently requires no assistance for ADLs and supervision level for functional transfers/mobility. Pt will continue to benefit from skilled acute care OT services this admission to fa cilitate improvements in the areas of deficit listed above and to progress toward their PLOF with ADLs and IADLs. OT Time Calculation OT Start Time: 0730 OT Stop Time: 0800 OT Time Calculation (min): 30 min History of Present Illness: Patient is a 68 y.o. male admitted to [facility] on 07/18/2024. Occupational Therapy evaluation and treatment ordered to assess ADL independence, safety, and functional mobility for discharge planning. Patient Active Problem List Diagnosis Failure to thrive in adult S/P cholecystectomy Tonsil cancer ([facility]/HCC) WILIAM on CPAP Hyperlipidemia GERD (gastroesophageal reflux disease) JULIET (generalized anxiety disorder) Depression, major, in remission (CMS/HCC) Essential hypertension Decreased testosterone level Atherosclerosis of coronary artery Benign prostatic hyperplasia Hyponatremia Weakness Moderate malnutrition (CMS/HCC) Past Medical History: Diagnosis Date CAD (coronary artery disease) Cancer ([facility]/HCC) Gallstone pancreatitis 07/07/2024 History of myocardial infarction 07/07/2024 Hypertension Past Surgical History: Procedure Laterality Date CHOLECYSTECTOMY Subjective I'll get up Patient alert and agreeable to engage in OT evaluation and treatment. Objective Patient was identified by name and x2. Hearing: Intact Speech: Impaired Vision: Vision: Intact 07/20/24 1219 OT Last Visit OT Received On 07/20/24 General Family/Caregiver Present No OT Time Calculation OT Start Time 0730 OT Stop Time 0800 OT Time Calculation (min) 30 min Precautions Safety Interventions Call luke within reach;ID band on RUE Weight Bearing Status Full LUE Weight Bearing Status Full RLE Weight Bearing Status Full LLE Weight Bearing Status Full Pain Assessment Pain Assessment No/denies pain Pain Score 0 - No pain Home Living Type of Home House Lives With Spouse Home Adaptive Equipment None Home Layout Two level;1/2 bath on main level;Bed/bath upstairs Prior Function Level of [place] Independent with mobility and functional transfers Ambulation Status Household ambulator Receives Help From Family Indoor Mobility Assistance Independent Stairs Assistance Independent Prior Device Use No prior device use Do you drive? Yes Mode of Transportation Car ADL/IADL History ADL Assistance (Self Care) Independent Homemaking Assistance (Functional Cognition) Independent ADL Eating Assistance Independent Grooming Assistance Independent Oral Hygiene Assistance Independent Bathing Assistance Supervision UE Dressing Assistance Independent LE Dressing Assistance Independent Footwear Assistance Supervision Toileting Assistance Independent Bed Mobility Lying to Sitting Assistance Distant supervision Functional Transfers Sit to Stand Assistance Supervision Toilet Transfer Assistance Independent Functional Mobility Walking Assistance Distant supervision Device No device Distance Ambulated (ft) 300 Activity Tolerance Endurance Tolerates 30+ min activity without fatigue Cognition Overall Cognitive Status WFL Perception Inattention/Neglect Appears intact Proprioception Proprioception No apparent deficits Sensation Light Touch No apparent deficits Hand Function Gross Grasp Functional Coordination Coordination Functional RUE Assessment RUE Assessment Within Functional Limits LUE Assessment LUE Assessment Within Functional Limits OT Assessment OT Assessment Results At baseline Prognosis Excellent Evaluation/Treatment Tolerance Patient tolerated treatment well Plan OT Plan No skilled OT No Skilled OT At baseline function OT - Evaluation Status Complete OT Discharge Recommendations Home independent Equipment Recommended None OT Evaluation Time Entry OT Evaluation (Low) Time Entry 30 ADDITIONAL COMMENTS: Chart reviewed. RN clears pt for session. Pt agrees to participate and received supine with HOB elevated. All lines in place. No family or guests present during session. Medical precautions observed appropriately. Initiated education on Role of OT. Pt verbalized understanding. EXIT STATUS: Session ended with patient supine with HOB elevated. Needs in reach. RN made aware. OT Goals Pt seen for OT eval and treatment session to assess ADL and functional status. See above for details of evaluation/treatment session. OT Assessment OT Assessment Results: At baseline Prognosis: Excellent Evaluation/Treatment Tolerance: Patient tolerated treatment well Plan OT Plan: No skilled OT No Skilled OT: At baseline function OT - Evaluation Status: Complete OT Discharge Recommendations: Home independent Equipment Recommended: None Encounter Problems Encounter Problems (Active) There are no active problems. Encounter Problems (Resolved) There are no resolved problems. Education Documentation Body Mechanics, taught by Tali Whitlock OT at 07/20/2024 12:24 PM. Learner: Patient Readiness: Acceptance Method: Explanation Response: Verbalizes Understanding Comment: pt educated on pacing self t/o daily tasks Education Comments No comments found. Tali Whitlock OT * Briseyda Cochran, TIME STAMP ASSEMBLER - 07/19/2024 11:51 AM EST Images from the original note were not included. Speech Language Pathology [facility] TIME STAMP ASSEMBLER BEDSIDE SWALLOW EVALUATION NAME: Wood Rios DATE OF : 1955 ROOM: [facility] TIME STAMP ASSEMBLER Received On: 07/19/24 Parish Visitor Required: No TIME IN: 1045 TIME OUT: 1115 TOTAL TIME: 30 min MISSED TIME REASON: Other (Comment) (pt not in bed) FAMILY/CAREGIVER PRESENT: No SUBJECTIVE SUBJECTIVE: Orders acknowledged/received, chart reviewed, and patient cleared by TATUM Ribeiro for swallow evaluation. Patient was alert and sitting upright in ED bed on room air upon arrival. Pt is familiar to this teletypewriter operator from previous hospitalization. Pt reported a mostly full liquid diet at home and that he continues to see outpatient TIME STAMP ASSEMBLER at [facility] for swallow. Pt reported that he was having increased difficulty w/ swallowing for the past three days but today was better. Principal Problem: Weakness Date Noted: 07/19/2024 Resolved Problems: * No resolved hospital problems. * Weakness [R53.1] No admission procedures for hospital encounter. PAST MEDICAL HISTORY: Past Medical History: Diagnosis Date CAD (coronary artery disease) Cancer (CMS/HCC) Gallstone pancreatitis 07/07/2024 History of myocardial infarction 07/07/2024 Hypertension PAST SURGICAL HISTORY: Past Surgical History: Procedure Laterality Date CHOLECYSTECTOMY PRIOR LEVEL OF FUNCTIONING: Pt reported a mostly full liquid diet at home and that he has been working w/ outpatient TIME STAMP ASSEMBLER at [facility] for swallow who has recommended swallow strategies/exercises and is scheduling another MBS to re-evaluate his swallow function. IMAGING RESULTS: MRI Brain Results for orders placed during the hospital encounter of 07/18/24 MR Brain wo Contrast Narrative PROCEDURE: Noncontrast MRI of the brain. HISTORY: Neuro deficit, acute, stroke suspected Mental status change, unknown cause. COMPARISON: Head CT 07/10/2024. TECHNIQUE: Multiplanar multisequence MRI of the brain without intravenous contrast administration. FINDINGS: This study is mildly limited by patient motion. BRAIN: No diffusion abnormality. No mass or extra-axial fluid collection. No hydrocephalus. The major intracranial flow voids are preserved. Age commensurate ventricles and sulci. ORBITS: Normal. SINUSES/MASTOIDS: Minimal mucosal thickening in the ethmoid air cells and inferior left maxillary antrum. Small amount of fluid in the left mastoids and trace fluid in the right mastoids. Mild mucosal thickening and layering debris in the rightward sphenoid sinus. CALVARIUM: Normal. OTHER: The visualized skull base soft tissues are normal. Impression 1. No acute infarct. No acute findings. 2. Paranasal sinus disease as detailed above. Layering debris in the rightward sphenoid sinus couldbe secondary to acute sinusitis in the appropriate clinical setting. -------- FINAL REPORT -------- Dictated By: Yasmani Aguilar Dictated Date: 07/19/2024 09:39 ET Assigned Physician: Yasmani Aguilar Reviewed and Electronically Signed By: Yasmani Aguilar Signed Date: 07/19/2024 09:51 ET Workstation ID: [id number] Transcribed By: Self Edit Transcribed Date: 07/19/2024 09:[address] Head Results for orders placed during the hospital encounter of 07/18/24 CT Head wo and w Contrast Narrative CT head with and without contrast Comparison: [...] right maxillary sinus opacification. No acute fracture. Impression No acute intracranial findings. Chronic changes as described. Improvement in sinus disease. This document has been electronically signed by: Jayden Antonio MD on 07/19/2024 00:40:46 Chest Portable No results found for this or any previous visit. Chest 2 View Results for orders placed during the hospital encounter of 07/17/24 XR Chest 2 Views Narrative EXAMINATION: CHEST CLINICAL INFORMATION: Sore throat. The [...] a gastrostomy projects over the epigastric region. Impression No pneumonia or edema. Focal elevation of the right hemidiaphragm appears similar to previous. -------- FINAL REPORT -------- Dictated By: Quentin De Jesus Dictated Date: 07/17/2024 08:00 ET Assigned Physician: Quentin De Jesus Reviewed and Electronically Signed By: Quentin De Jesus Signed Date: 07/17/2024 08:02 ET Workstation ID: [id number] Transcribed By: Self Edit Transcribed Date: 07/17/2024 08:[address] No results found for this or any previous visit. NIH Stroke Scale: ALLERGIES: Allergies Allergen Reactions Iodinated Contrast Media OBJECTIVE OXYGEN THERAPY: Oxygen Therapy: None (Room air) DYSPHAGIA SYMPTOMS REPORTED BY PATIENT: Difficulty swallowing food NPO: yes CURRENT DIET TEXTURES ORDERED: NPO NPO FEEDING METHOD: Independent ENDURANCE DURING MEALS: To Be Assessed MENTAL STATUS: Alert , Responsive, and Cooperative SWALLOW BASELINE ASSESSMENT: Respiratory Status: Room air History of Intubation: No Behavior/Cognition: Alert, Cooperative, Pleasant mood Dentition: Adequate Patient Positioning: Upright in bed Baseline Vocal Quality: Within Functional Limits MOTOR SPEECH: Labial ROM: Within Functional Limits Labial Symmetry: Within Functional Limits Lingual Appearance: [place], White coating Lingual ROM: Within Functional Limits Lingual Symmetry: Within Functional Limits Facial ROM: Within Functional Limits Facial Symmetry: Within Functional Limits Velum: Within Functional Limits Mandible: Within Functional Limits Vocal Quality: Within Functional Limits Intelligibility: Intelligible 100% CONSISTENCIES ASSESSED: Yes Thin Presentation: Cup, Self Fed Oral: Within functional limits Pharyngeal: Throat clearing - immediate (Pt demonstrated throat clearing in 3/8 trials.) Amount: x1 cup of orange juice and x3 sips of water Comments: Pt reported that swallowing strategies/recommendations from TIME STAMP ASSEMBLER at [facility]. Pt was able to demonstrate use of swallowing strategies recommended by TIME STAMP ASSEMBLER at [facility] (supraglottic swallow and anuel maneuver) in 4/8 trials given verbal cues. Pt reported that he also was rec ommended the [facility]. Pt was encouraged to practice strategies to improve swallow function, pt agreeable to recommendations. Pt reported that TIME STAMP ASSEMBLER is currently scheduling another MBS at [facility]. Pt reported that he is mostly on a full liquid diet at home and would like to continue w/ full liquid diet at hospital, declined further trials. ASSESSMENT/RECOMMENDATIONS ASPIRATION RISK: Recommendations: Dysphagia treatment Diet Solids Recommendation: No solids, see liquids Diet Liquids Recommendation: Thin liquids Liquid Administration Via: Cup (no straws) Compensatory Swallowing Strategies: Upright as possible for all oral intake, No straws, Effortful swallow, Ana maneuver, Super glottic swallow maneuver Recommended Medication Route: PO Recommended Medication Administration: Crushed, Other (Comment) (crushed in puree or via G-tube) TIME STAMP ASSEMBLER ASSESSMENT: TIME STAMP ASSEMBLER Assessment Results: Swallowing impairments Dysphagia Diagnosis: (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) Evaluation/Treatment Tolerance: Patient tolerated treatment well Medical Staff Made Aware: Yes Comments: Discuessed w/ RN and message sent to providers CURRENT DIET: Dietary Orders (From admission, onward) Start Ordered 07/19/24 1137 Adult diet [facility]; General, Modified Consistency Options for Liquids and Solids; Regular; Full Liquid Diet effective now Question Answer Comment Location [facility] Diet Type (req) General Diet Type (req) Modified Consistency Options for Liquids and Solids General Diet Regular Modified Consistency Options for Liquids and Solids Full Liquid 07/19/24 1136 PLAN OF CARE TIME STAMP ASSEMBLER PLAN Treatment/Interventions: Swallow function TIME STAMP ASSEMBLER Plan: Skilled TIME STAMP ASSEMBLER TIME STAMP ASSEMBLER Frequency: 1 day per week TIME STAMP ASSEMBLER Treatments per day: 1 time per day TIME STAMP ASSEMBLER - Evaluation Status: Complete TIME STAMP ASSEMBLER Discharge Recommendations: Outpatient TIME STAMP ASSEMBLER Diet Recommendations: Full liquid diet DISCHARGE RECOMMENDATIONS Ongoing Skilled Speech-Language Pathology (TIME STAMP ASSEMBLER) services at next level of care. EDUCATION Education Documentation Modified Diet Training, taught by Briseyda Cochran, TIME STAMP ASSEMBLER at 07/19/2024 11:50 AM. Learner: Patient Readiness: Acceptance Method: Explanation Response: Verbalizes Understanding, Needs Reinforcement Comment: Pt was provided education about the importance of following recommended swallowing strategies. Education Comments No comments found. GOALS Encounter Problems Encounter Problems (Active) Template: Speech Therapy Problem: Swallowing Dates: Start: 07/19/24 Goal: Patient will tolerate the least restrictive diet consistency without overt s/s of aspiration Dates: Start: 07/19/24 Expected End: 07/26/24 Description: Goal Type: STG, Performance Level: Independent Goal: Patient will follow recommended swallowing strategies Dates: Start: 07/19/24 Expected End: 07/26/24 Description: Goal Type: STG, Performance Level: Independent Encounter Problems (Resolved) There are no resolved problems. Associated attestation - Magali Jackson SLP - 07/19/2024 3:32 PM EST I attest that I, Tali Jackson M.S.,[facility]-TIME STAMP ASSEMBLER, was physically involved in the ongoing assessment, decision making, and interventions provided during today's patient care session. I have reviewed all documentation for today's 07/19/24, entered by Speech Therapy Fellow, Briseyda Cochran, and further attest that it is an accurate clinical record of today's encounter, including accurate and appropriate charges. * RYLEE Yanes - 07/19/2024 8:46 AM EST Speech Language Pathology Therapy session was attempted for Wood Rios by RYLEE Yanes on 07/19/2024. The patient was unable to be seen for the following reason(s): Out of room at a medical procedure Plan for return visit: As soon as possible * Eduardo Nicole MD - 07/19/2024 3:38 AM EST ED Course as of 07/19/24 0338 WedJul 18, 2024 1726 Attending note. Patient with difficulty swallowing. History significant for throat cancer postradiation treatment. Awaiting imaging to help discern cause. [LD] WedJul 19, 2024 0233 I, Dr. Nicole, received this patient in signout at 11:30 PM. At time of signout awaiting CT scan results. CT of the head shows no acute abnormality. CT of the neck shows no acute abnormality, no explanation for the patient's symptoms. Given the patient's shuffling gait/gait instability, his dysphagia, myconcern is the patient may have a subacute stroke. Will admit the patient for an MRI and further workup. [SM] ED Course User Index [LD] Javi Machado MD [SM] Eduardo Nicole MD Clinical Impressions as of 07/19/24 0338 Dysphagia, unspecified type Unstable gait Admit to Inpatient 1. Dysphagia, unspecified type 2. Unstable gait Procedures * Magali Vasquez RN - 07/18/2024 6:40 PM EST 1000mL NS fluid bolus initiated. Pt educated that urine sample is needed. Urinal provided. Pt verbalized understanding. * Jorge Wilson RN - 07/18/2024 3:01 PM EST Patient was here 2 days ago for AMS and there was a concern for low sodium and magnesium. Patient has hx of throat CA. Today a speech therapy and therapist reports that the patient is talking funny and hallucinating. She is also concerned they may be dehydrated. Patient is AxO in triage. Neuros intact in triage. * ALBAN Nettles - 07/18/2024 2:57 PM EST Emergency Medicine Note Patient Name: Wood Rios Initial Evaluation: 07/18/2024 : 1955 Patient's PCP: Min Mckenzie MD Emergency Physician: ALBAN Nettles History of Present Illness Chief Complaint: Chief Complaint Patient presents with Altered Mental Status Was seen here 2 days ago for hallucinations, speech changes, dehydration and difficulty swallowing.Here for same symptoms. Hx throat ca HPI: 68-year-old male with a history of throat cancer status postchemotherapy and radiation high cholesterol hypertension depression comes to the emergency department with his family. Per , patient had an appointment with the speech pathologist today to evaluate his swallowing. Unfortunately, he has been experiencing increased discomfort in his throat which gets worse with swallowing so he has not been drinking any fluids. Patient is supposed to be drinking water periodically throughout theday to help clear the secretions, however he has not been doing that. He primarily gets his nutrition through a feeding tube. Patient's states that this has been going on for approximately 2 weeks. Currently, only complaining of discomfort to his throat denies headache chest pain shortness of breath abdominal pain nausea vomiting. Patient's states that the patient is ambulating independently but has a very shuffling gait, this has been present for 2 to 3 weeks. Patient was evaluated in the emergency department early Wednesday morning received IV fluids and discharge. Patient was hospitalized on July 07 until July 08 secondary to failure to thrive and hyponatremia. Family also states that he has periodic hallucinations and seems to be moving a lot in his sleep concerned about nightmares. Patient's last swallowing study was approximately 2 months ago. They are trying to schedule him for an MRI of the brain. Also, patient's Wellbutrin dose was increased from 150-300 6 to 7 weeks ago. Patient's thinks that they may be contributing to the hallucinations and they stoppedthat medication yesterday. He did see an crop research scientist 3 weeks ago per the , they did a direct visualization of the throat and no gross abnormalities were noted. ROS: I have performed a ROS with the pertinent positives and negatives documented in the history ofpresent illness. Previous History Past Medical History: Diagnosis Date CAD (coronary artery disease) Cancer (CMS/HCC) Gallstone pancreatitis 07/07/2024 History of myocardial infarction 07/07/2024 Hypertension Past Surgical History: Procedure Laterality Date CHOLECYSTECTOMY Social History Tobacco Use Smoking status: Never Smokeless tobacco: Never Substance Use Topics Alcohol use: Yes Drug use: No Family History Problem Relation Name Age of Onset Heart attack Mother Heart attack Brother is allergic to iodinated contrast media. No current facility-administered medications on file prior to encounter. Current Outpatient Medications on File Prior to Encounter Medication Sig Dispense Refill atorvastatin (LIPITOR) 40 mg tablet Take 1 tablet (40 mg total) by mouth at bedtime. buPROPion XL (WELLBUTRIN XL) 300 mg 24 hr tablet Take 1 tablet (300 mg total) by mouth 1 (one) timeeach day. FLUoxetine (PROzac) 20 mg capsule Take 1 capsule (20 mg total) by mouth 1 (one) time each day. metoprolol succinate (TOPROL-XL) 50 mg 24 hr tablet Take 1 tablet (50 mg total) by mouth 1 (one) time each day. pantoprazole (PROTONIX) 40 mg EC tablet Take 1 tablet (40 mg total) by mouth 1 (one) time each day. Physical Exam ED Triage Vitals [07/18/24 1505] Temp Heart Rate Resp BP 36.9 ??C (98.4 ??F) 73 18 133/88 SpO2 Temp Source Heart Rate Source Patient Position 100 % Oral Monitor Sitting BP Location FiO2 (%) Right arm;Upper -- General: Well-appearing, well nourished, in no acute distress HEENT: PERRL, EOMI, external ears and nose appear unremarkable, airway is patent unable to visualize oropharynx secondary to very sensitive gag reflex Neck: Supple, full range of motion Chest: Clear to auscultation; no evidence of respiratory distress Circulatory: RRR, extremities well perfused Abdomen: Non-distended, Non-Tender Extremities: Normal ROM, No edema Skin: Warm and dry Neuro: Alert and oriented, no focal deficits Results Labs Reviewed CBC AND DIFFERENTIAL Narrative: The following orders were created for panel order CBC and differential. Procedure Abnormality Status --------- ------ CBC auto differential[[id number]] Please view results for these tests on the individual orders. COMPREHENSIVE METABOLIC PANEL AMMONIA URINALYSIS WITH REFLEX MICROSCOPIC AND CULTURE Narrative: The following orders were created for panel order Urinalysis with reflex microscopic and culture. Procedure Abnormality Status --------- ------ Urinalysis with reflex ...[[id number]] Contreras urine culture tube[[id number]] Please view results for these tests on the individual orders. CBC WITH AUTO DIFFERENTIAL URINALYSIS WITH REFLEX MICROSCOPIC AND CULTURE POC GLUCOSE Abnormal Labs Reviewed - No abnormal labs to display XR Chest 2 Views (Results Pending) I have discussed the incidental/abnormal imaging and/or lab abnormalities with the patient and haveinstructed them the need for further evaluation and workup with their primary care doctor. I have provided the patient with a paper copy of the abnormality. The laboratory results, imaging results and other diagnostic exam results were reviewed in the EMR. EKG Interpretation Critical Care Time None ? Medical Decision Making Medications - No data to display ED Course as of 07/18/24 1805 e Jul 18, 2024 172 Attending note. Patient with difficulty swallowing. History significant for throat cancer postradiation treatment. Awaiting imaging to help discern cause. [LD] ED Course User Index [LD] Javi Machado MD Patient was evaluated. Patient is alert and oriented at this time. Appropriate lab work. CT with IVcontrast of the brain and neck will be performed. Patient does have an allergy to contrast media sohe will receive hydrocortisone 200 mg IV followed by another dose 4 hours later and then Benadryl 1hour prior to procedure IM. Sodium is 129 this will be replenished. Otherwise lab work shows no worrisome abnormality. Signed out to Dr. Nicole at 11:10 PM Procedures Procedures Diagnosis No diagnosis found. Disposition Data Unavailable ED Prescriptions None Physician Attestation ALBAN Nettles 07/18/24 1654 ALBAN Nettles 07/18/24 1659 ALBAN Nettles 07/18/24 1710 ALBAN Nettles 07/18/24 1805 ALBAN Nettles 07/18/24 2311 documented in this encounter Consult Notes * Mara Lucio MD - 07/20/2024 9:20 AM ESTAssociated Order(s): IP CONSULT TO PSYCHIATRY Connected to patient's room via I-pad with help from security installation sales technician; assistance much appreciated. Patient consented to visit via Telehealth video conferencing modality. Patient educated as to likely differences between Telehealth care and face to face care. Patient informed of the risks and benefits of using Telehealth services and procedures and likely risks and benefits of using alternatives to Telehealth services. Patient informed of the right to refuse Telehealth services at any time without jeopardizing his/her right to future care, services or benefits. Patient was informed that he/she is being seen solely by Mara Lucio MD today via secure connection in a locked virtual exam room. Persons present on patient's end: Patient Persons present on provider's end: Mara Lucio MD CHART REVIEWED, PATIENT INTERVIEWED. CHIEF COMPLAINT: Depression, refusing some treatment Time spent on encounter: 30 min. HISTORY OF PRESENT ILLNESS Wood Rios is a 68 y.o. male with psychiatric history significant for depression and medical history significant for but not limited to throat cancer, CAD, [place], HTN, hyponatremia, gallstone pancreatitis, and failure to thrive who is in ED for AMS. Psychiatry was consulted for depression and due to concern about patient refusing some treatment. The patient states that he ended up in the ER after he fell out of bed and sustained head trauma. He reports that he didn't go to the hospital right away, but a few hours later his daughter insisted on bringing him to the hospital because he wasn't acting like his normal self. He feels that he might have been confused previously, but he feels that he is no longer confused. He knows he is at [facility] in [place], [place]. He reports that the only thing he has been refusing in the ED is to talk with the u/s or anyone from mental health. He has not refused any other treatments or testing. He can list his regular medical issues and detail how he regularly cares for those conditions. He admits to getting depressed almost every winter, including this one. He has low mood and feels lazy. He lacks motivation and feels that the lack of sunlight has everything to do with it. He usually starts to feel better after the time change in August. He rates his current symptoms of depression as 5/10 in severity at present. He notes that going for a walk helps him to feel better, and the lack of sunlight makes him feel worse. He notes thathe takes Wellbutrin XL and it was recently increased. Since that increase, he has been having visual hallucinations of little kids with crooked teeth. He doesn't have any VH now, but he did have them yesterday and last night. The patient denies any suicidal ideations, plan, or intent. He is okay with the u/s calling his . Her number is [phone]. REVIEW OF SYSTEMS CONSTITUTIONAL: The patient denies fevers, chills, sweats and body ache. HEENT: Denies CRUZ, blurry vision, eye pain, tinnitus, vertigo, gingival bleeding, sore throat, neck or thyroid masses. RESPIRATORY: Denies cough, sputum, hemoptysis. CARDIAC: Denies chest pain, pressure, palpitations, irregular heartbeats. Denies lower extremity edema. GASTROINTESTINAL: Denies abdominal pain, changes in bowel habits or any bleeding on toilet paper. GENITOURINARY: Denies dysuria, hematuria, nocturia or frequency. NEUROLOGIC: Denies headaches, dizziness, syncope. MUSCULOSKELETAL: Negative for arthritis. Denies muscle weakness. No limitation in range of motion. VASCULAR: Denies claudication and cramping. ENDOCRINOLOGY: Denies heat or cold intolerance. HEMATOLOGY: Denies easy bleeding or blood transfusion. DERMATOLOGY: Denies changes in moles or pigmentation changes. Psychiatric ROS: Depression: See HPI. Hilary: The patient denies elevated/expansive mood, decreased need for sleep, grandiosity, pressuredspeech, flight of ideas, distractibility, increase in goal directed activity, and hypersexuality. Psychosis: The patient denies audio or visual hallucinations, delusions, thought broadcasting, thought insertion, delusions of reference, catatonia, or disorganized speech or behavior. Anxiety: The patient denies any excessive worry, restlessness, fatigue, poor concentration, irritability, muscle tension, or anxiety-related sleep changes. Panic: The patient denies any recent panic episodes. PTSD: The patient denies any h/o trauma and does not endorse any current s/s related to PTSD. OCD: The patient denies intrusive thoughts, repetitive behaviors, counting, checking, washing, symmetry, or grouping and ordering that take up more than 1 hour of the day. Eating Disorder: The patient denies feeling overweight, excessive dieting or exercise to lose weight, overuse of laxatives, binging/purging behaviors, and amenorrhea. SOCIAL HISTORY : The patient was born in [place], [place] and was raised in [place] by his mother and father.He had one brother and one sister. He graduated HS but did not further his studies after that. He describes his childhood as boring because he was always stuck at home and the family didn't have many resources. Marital Status: for 44 years. He has three adult children. Rastafari: Rastafarian. Housing: Lives in a house with his . Work: Mostly retired; still dabbles in [employer], which he did for 44 years. Legal: Denies any current or past legal issues. Trauma: Some neglect from parents as a child. PSYCHIATRIC HISTORY Diagnosis: Seasonal affective disorder Outpatient treatment: The patient is not currently linked with any outpatient MH services. He used to have a therapist but felt that he wasn't getting any benefit from that. His PCP manages his MH medication. Residential treatment: Denies any h/o residential admissions. Inpatient admissions: Denies any h/o psychiatric admissions to hospital. Suicidal self-directed violence: Denies any h/o suicide attempts. Non-suicidal self-directed violence: Denies any h/o self-harming behaviors. Violence history: Denies any h/o violence. Psychotropic medication trials: Wellbutrin XL recently, as above. SUBSTANCE USE HISTORY Alcohol: Denies any recent use. Illicit Substances: Denies any current or past use. Nicotine: Denies any current or past use. Caffeine: Denies any recent use. MEDICAL HISTORY Non-psychiatric medical history: Past Medical History: Diagnosis Date CAD (coronary artery disease) Cancer ([facility]) Gallstone pancreatitis 07/07/2024 History of myocardial infarction 07/07/2024 Hypertension Current medications: aspirin, 81 mg, oral, Daily atorvastatin, 40 mg, oral, Nightly enoxaparin, 40 mg, subcutaneous, q24h OTIS FLUoxetine, 20 mg, oral, Daily metoprolol succinate, 50 mg, oral, Daily pantoprazole, 40 mg, oral, Daily ALLERGIES: Allergies Allergen Reactions Iodinated Contrast Media FAMILY HISTORY: Family History Problem Relation Name Age of Onset Heart attack Mother Heart attack Brother Sister - ovarian cancer MSE: Appearance: AOx4. Appears stated age, well groomed. Pleasant and cooperative. Adequate eye contact.No psychomotor agitation or retardation. No evidence of EPS. Muscle tone/station: WNL. Orientation: To person, place, time, and situation. Attention and Concentration: No deficits in attention and concentration. Speech: Normal rate, rhythm, volume, and tone. Mood: I always get depressed in the winter. Affect: Dysphoric with restricted range, mood congruent. No lability noted. Thought Process: Coherent, linear, logical, and goal-directed. No FOI or FAHDA. No thought blocking. Thought Content: Denies suicidal/homicidal ideation. VH at times, as above. Denies auditory hallucinations. No delusions. No paranoia. Perception/associations: Denies somatic complaints, or tactile disturbances Suicidal Ideations: Pt denies SI, intent, or plan. Low acute risk. Currently is future oriented, motivated for treatment, and compliant with medications. Homicidal Ideations: Pt denies HI, intent, or plan. Low acute risk. No history of violence. No access to firearms. Behavior: No abnormal behavior during interview. Fund of Knowledge: Appropriate for age and level of education Intellect/Memory: Estimated as average based on interview. Immediate, recent, and remote memory is grossly intact. Language: No deficits Judgment/Insight: fair at present. Musculoskeletal Exam: Movement: [x]normal []abnormal [-]dyskinesias [-]tremors [-]tics Station: [x]upright []hyperflexed/stooped []hyperextended Muscle strength [x]appears normal [-]appears abnormal Muscle tone: [x]normal [-]muscle rigidity LABS: Admission on 07/18/2024 Component Date Value Ref Range Status Sodium 07/18/2024 129 (L) 133 - 145 mmol/L Final Potassium 07/18/2024 4.2 3.5 - 5.5 mmol/L Final Chloride 07/18/2024 95 (L) 96 - 110 mmol/L Final CO2 07/18/2024 27 21 - 32 mmol/L Final Anion Gap 07/18/2024 7 3 - 11 Final Glucose 07/18/2024 90 70 - 100 mg/dL Final BUN 07/18/2024 14 5 - 25 mg/dL Final Creatinine 07/18/2024 0.50 (L) 0.70 - 1.30 mg/dL Final eGFR 07/18/2024 112 >=60 mL/min/1.73m2 Final Calculation based on the Chronic Kidney Disease Epidemiology Collaboration (CKD- EPI) equation refitwithout adjustment for race. BUN/Creatinine Ratio 07/18/2024 28.0 Final Calcium 07/18/2024 8.9 8.5 - 10.5 mg/dL Final AST (SGOT) 07/18/2024 24 10 - 42 unit/L Final ALT (SGPT) 07/18/2024 41 10 - 60 unit/L Final Alkaline Phosphatase 07/18/2024 104 42 - 121 unit/L Final Total Protein 07/18/2024 6.6 6.0 - 8.0 g/dL Final Albumin 07/18/2024 3.5 3.2 - 5.0 g/dL Final Total Bilirubin 07/18/2024 0.8 0.0 - 1.4 mg/dL Final Ammonia 07/18/2024 28 11 - 35 mcmol/L Final Glucose POC 07/18/2024 171 (A) 70 - 110 mg/dL Final Ventricular Rate ECG 07/18/2024 76 BPM Final Atrial Rate 07/18/2024 76 BPM Final P-R Interval 07/18/2024 176 ms Final QRS Duration 07/18/2024 88 ms Final Q-T Interval 07/18/2024 384 ms Final QTc 07/18/2024 432 ms Final P Wave Talmage 07/18/2024 28 degrees Final R Talmage 07/18/2024 73 degrees Final T Talmage 07/18/2024 36 degrees Final ECG Interpretation 07/18/2024 Final Value:Normal sinus rhythm Normal ECG When compared with ECG of 16-JUL-2024 23:11, No significant change was found Confirmed by HERNANDEZ SIMPSON ([id number]) on 07/19/2024 10:51:56 PM WBC 07/18/2024 6.0 4.8 - 10.8 K/mcL Final RBC 07/18/2024 3.90 (L) 4.50 - 5.50 M/mcL Final Hemoglobin 07/18/2024 12.4 (L) 13.5 - 17.5 g/dL Final Hematocrit 07/18/2024 36.2 (L) 42.0 - 54.0 % Final MCV 07/18/2024 93.1 79.0 - 98.0 FL Final MCH 07/18/2024 31.9 27.0 - 32.0 pcg Final MCHC 07/18/2024 34.3 32.0 - 37.0 g/dL Final RDW 07/18/2024 14.0 11.0 - 15.0 % Final Platelets 07/18/2024 148 130 - 400 K/mcL Final MPV 07/18/2024 9.2 7.0 - 11.0 FL Final NRBC 07/18/2024 0.0 <1.0 % Final NRBC Absolute 07/18/2024 0.00 <0.10 K/mcL Final Neutrophils Relative 07/18/2024 69.3 % Final Lymphocytes Relative 07/18/2024 14.6 % Final Monocytes Relative 07/18/2024 14.1 % Final Eosinophils Relative 07/18/2024 1.2 % Final Basophils Relative 07/18/2024 0.3 % Final Immature Granulocytes Relative 07/18/2024 0.5 % Final Neutrophils Absolute 07/18/2024 4.13 1.50 - 7.00 K/mcL Final Lymphocytes Absolute 07/18/2024 0.87 (L) 1.00 - 5.00 K/mcL Final Monocytes Absolute 07/18/2024 0.84 0.20 - 1.00 K/mcL Final Eosinophils Absolute 07/18/2024 0.07 0.00 - 0.50 K/mcL Final Basophils Absolute 07/18/2024 0.02 0.00 - 0.20 K/mcL Final Immature Granulocytes Absolute 07/18/2024 0.03 0.00 - 0.03 K/mcL Final Specific [place] Urine 07/18/2024 1.014 1.003 - 1.030 Final pH, Urine 07/18/2024 7.0 5.0 - 8.0 pH Final Leukocytes, Urine 07/18/2024 Negative Negative Final Nitrite, Urine 07/18/2024 Negative Negative Final Protein, Urine 07/18/2024 Negative <=Trace mg/dL Final Glucose, Urine 07/18/2024 Negative Negative mg/dL Final Ketones, Urine 07/18/2024 Negative Negative mg/dL Final Urobilinogen, Urine 07/18/2024 1.0 0.2 - 1.0 mg/dL Final Bilirubin, Urine 07/18/2024 Negative Negative Final Blood, Urine 07/18/2024 Negative Negative Final Extra Tube 07/18/2024 Hold for add-ons. Final Auto resulted. Glucose POCT 07/18/2024 171 (H) 70 - 100 mg/dL Final Sodium 07/19/2024 132 (L) 133 - 145 mmol/L Final Potassium 07/19/2024 4.2 3.5 - 5.5 mmol/L Final Chloride 07/19/2024 100 96 - 110 mmol/L Final CO2 07/19/2024 25 21 - 32 mmol/L Final Anion Gap 07/19/2024 7 3 - 11 Final Glucose 07/19/2024 113 (H) 70 - 100 mg/dL Final BUN 07/19/2024 12 5 - 25 mg/dL Final Creatinine 07/19/2024 0.62 (L) 0.70 - 1.30 mg/dL Final eGFR 07/19/2024 105 >=60 mL/min/1.73m2 Final Calculation based on the Chronic Kidney Disease Epidemiology Collaboration (CKD- EPI) equation refitwithout adjustment for race. BUN/Creatinine Ratio 07/19/2024 19.4 Final Calcium 07/19/2024 9.2 8.5 - 10.5 mg/dL Final Magnesium 07/19/2024 2.0 1.9 - 2.6 mg/dL Final Hemoglobin A1C 07/18/2024 4.9 <6.5 % Final Mean Bld Glu Estim. 07/18/2024 94 mg/dL Final Cholesterol 07/18/2024 89 0 - 200 mg/dL Final Triglycerides 07/18/2024 53 0 - 150 mg/dL Final HDL 07/18/2024 46 >=40 mg/dL Final LDL Calculated 07/18/2024 32 0 - 100 mg/dL Final VLDL Cholesterol Jaimie 07/18/2024 10.6 mg/dL Final Non HDL Chol. (LDL+VLDL) 07/18/2024 43 <145 mg/dL Final Chol/HDL Ratio 07/18/2024 1.9 0.0 - 4.4 Final WBC 07/19/2024 7.2 4.8 - 10.8 K/mcL Final RBC 07/19/2024 4.20 (L) 4.50 - 5.50 M/mcL Final Hemoglobin 07/19/2024 13.6 13.5 - 17.5 g/dL Final Hematocrit 07/19/2024 39.4 (L) 42.0 - 54.0 % Final MCV 07/19/2024 94.3 79.0 - 98.0 FL Final MCH 07/19/2024 32.5 (H) 27.0 - 32.0 pcg Final MCHC 07/19/2024 34.5 32.0 - 37.0 g/dL Final RDW 07/19/2024 13.9 11.0 - 15.0 % Final Platelets 07/19/2024 158 130 - 400 K/mcL Final MPV 07/19/2024 8.8 7.0 - 11.0 FL Final NRBC 07/19/2024 0.0 <1.0 % Final NRBC Absolute 07/19/2024 0.00 <0.10 K/mcL Final Neutrophils Relative 07/19/2024 84.0 % Final Lymphocytes Relative 07/19/2024 9.8 % Final Monocytes Relative 07/19/2024 5.5 % Final Eosinophils Relative 07/19/2024 0.0 % Final Basophils Relative 07/19/2024 0.0 % Final Immature Granulocytes Relative 07/19/2024 0.7 % Final Neutrophils Absolute 07/19/2024 6.07 1.50 - 7.00 K/mcL Final Lymphocytes Absolute 07/19/2024 0.71 (L) 1.00 - 5.00 K/mcL Final Monocytes Absolute 07/19/2024 0.40 0.20 - 1.00 K/mcL Final Eosinophils Absolute 07/19/2024 0.00 0.00 - 0.50 K/mcL Final Basophils Absolute 07/19/2024 0.00 0.00 - 0.20 K/mcL Final Immature Granulocytes Absolute 07/19/2024 0.05 (H) 0.00 - 0.03 K/mcL Final Cholesterol 07/20/2024 89 0 - 200 mg/dL Final Triglycerides 07/20/2024 43 0 - 150 mg/dL Final HDL 07/20/2024 50 >=40 mg/dL Final LDL Calculated 07/20/2024 30 0 - 100 mg/dL Final VLDL Cholesterol Jaimie 07/20/2024 8.6 mg/dL Final Non HDL Chol. (LDL+VLDL) 07/20/2024 39 <145 mg/dL Final Chol/HDL Ratio 07/20/2024 1.8 0.0 - 4.4 Final Sodium 07/20/2024 133 133 - 145 mmol/L Final Potassium 07/20/2024 3.8 3.5 - 5.5 mmol/L Final Chloride 07/20/2024 98 96 - 110 mmol/L Final CO2 07/20/2024 28 21 - 32 mmol/L Final Anion Gap 07/20/2024 7 3 - 11 Final Glucose 07/20/2024 84 70 - 100 mg/dL Final BUN 07/20/2024 17 5 - 25 mg/dL Final Creatinine 07/20/2024 0.60 (L) 0.70 - 1.30 mg/dL Final eGFR 07/20/2024 106 >=60 mL/min/1.73m2 Final Calculation based on the Chronic Kidney Disease Epidemiology Collaboration (CKD- EPI) equation refitwithout adjustment for race. BUN/Creatinine Ratio 07/20/2024 28.3 Final Calcium 07/20/2024 8.6 8.5 - 10.5 mg/dL Final Admission on 07/17/2024, Discharged on 07/17/2024 Component Date Value Ref Range Status Ventricular Rate ECG 07/16/2024 91 BPM Final Atrial Rate 07/16/2024 91 BPM Final P-R Interval 07/16/2024 180 ms Final QRS Duration 07/16/2024 92 ms Final Q-T Interval 07/16/2024 382 ms Final QTc 07/16/2024 469 ms Final P Wave Talmage 07/16/2024 44 degrees Final R Talmage 07/16/2024 93 degrees Final T Talmage 07/16/2024 38 degrees Final ECG Interpretation 07/16/2024 Final Value:Normal sinus rhythm Rightward axis When compared with ECG of 07-JUL-2024 13:53, No significant change was found Confirmed by DEVIN WHEELER ([id number]) on 07/17/2024 9:07:40 PM Sodium 07/17/2024 129 (L) 133 - 145 mmol/L Final Potassium 07/17/2024 3.9 3.5 - 5.5 mmol/L Final Chloride 07/17/2024 94 (L) 96 - 110 mmol/L Final CO2 07/17/2024 30 21 - 32 mmol/L Final Anion Gap 07/17/2024 5 3 - 11 Final Glucose 07/17/2024 87 70 - 100 mg/dL Final BUN 07/17/2024 14 5 - 25 mg/dL Final Creatinine 07/17/2024 0.50 (L) 0.70 - 1.30 mg/dL Final eGFR 07/17/2024 112 >=60 mL/min/1.73m2 Final Calculation based on the Chronic Kidney Disease Epidemiology Collaboration (CKD- EPI) equation refitwithout adjustment for race. BUN/Creatinine Ratio 07/17/2024 28.0 Final Calcium 07/17/2024 8.5 8.5 - 10.5 mg/dL Final Magnesium 07/17/2024 1.8 (L) 1.9 - 2.6 mg/dL Final WBC 07/17/2024 5.3 4.8 - 10.8 K/mcL Final RBC 07/17/2024 3.70 (L) 4.50 - 5.50 M/mcL Final Hemoglobin 07/17/2024 12.2 (L) 13.5 - 17.5 g/dL Final Hematocrit 07/17/2024 35.2 (L) 42.0 - 54.0 % Final MCV 07/17/2024 94.1 79.0 - 98.0 FL Final MCH 07/17/2024 32.6 (H) 27.0 - 32.0 pcg Final MCHC 07/17/2024 34.7 32.0 - 37.0 g/dL Final RDW 07/17/2024 13.8 11.0 - 15.0 % Final Platelets 07/17/2024 139 130 - 400 K/mcL Final MPV 07/17/2024 8.8 7.0 - 11.0 FL Final NRBC 07/17/2024 0.0 <1.0 % Final NRBC Absolute 07/17/2024 0.00 <0.10 K/mcL Final Neutrophils Relative 07/17/2024 69.3 % Final Lymphocytes Relative 07/17/2024 16.0 % Final Monocytes Relative 07/17/2024 13.3 % Final Eosinophils Relative 07/17/2024 0.6 % Final Basophils Relative 07/17/2024 0.2 % Final Immature Granulocytes Relative 07/17/2024 0.6 % Final Neutrophils Absolute 07/17/2024 3.65 1.50 - 7.00 K/mcL Final Lymphocytes Absolute 07/17/2024 0.84 (L) 1.00 - 5.00 K/mcL Final Monocytes Absolute 07/17/2024 0.70 0.20 - 1.00 K/mcL Final Eosinophils Absolute 07/17/2024 0.03 0.00 - 0.50 K/mcL Final Basophils Absolute 07/17/2024 0.01 0.00 - 0.20 K/mcL Final Immature Granulocytes Absolute 07/17/2024 0.03 0.00 - 0.03 K/mcL Final Total Protein 07/17/2024 6.2 6.0 - 8.0 g/dL Final Albumin 07/17/2024 3.2 3.2 - 5.0 g/dL Final Total Bilirubin 07/17/2024 0.7 0.0 - 1.4 mg/dL Final Bilirubin, Direct 07/17/2024 0.3 0.0 - 0.3 mg/dL Final Bilirubin, Indirect 07/17/2024 0.4 0.0 - 1.1 mg/dL Final ALT (SGPT) 07/17/2024 37 10 - 60 unit/L Final AST (SGOT) 07/17/2024 21 10 - 42 unit/L Final Alkaline Phosphatase 07/17/2024 95 42 - 121 unit/L Final VITALS: BP: 105/81 (07/20 414) Heart Rate: 69 (07/20 414) Heart Rate Source: Monitor (07/20 43) Temp: 36.4 ??C (97.5 ??F) (07/20 43) Temp Source: Oral (07/20 43) SpO2: 95 % (07/20 43) ASSESSMENT: Wood Rios is a 68 y.o. male with psychiatric history significant for depression and medical history significant for but not limited to throat cancer, CAD, TN, HTN, hyponatremia, gallstone pancreatitis, and failure to thrive who is in ED for AMS. Psychiatry was consulted for depression and due to concern about patient refusing some treatment. DSM-5 DIAGNOSIS: Capacity evaluation MDD, recurrent, moderate, with seasonal coponent Throat cancer, CAD, TN, HTN, hyponatremia, gallstone pancreatitis, and failure to thrive In ED for AMS TREATMENT PLAN: Pt has verbalized understanding and given consent/agreement with medications and plan offered. LEVEL OF CARE: Continue current level of treatment. RECOMMENDATIONS: Discontinue Wellbutrin XL. This medication was recently increased, and the patient subsequently experienced new-onset VH. This is a phenomenon that sometimes occurs with the use of Wellbutrin XL as that medication has dopiminergic properties. Recommend patient to not restart that medication and to see PCP for switch to a new antidepressant for management of his depression. Of note, the patient retains/has regained medical decision-making capacity. He should be permitted to make his own medical decisions at present. Called the patient's and discussed the recommendations above, per patient's request. She does not agree that the patient has capacity despite having the perimeters of capacity explained multipletimes in multiple ways. Medication Education: Risks, benefits, alternatives, and potential side effects were discussed withthe patient. Patient voiced understanding and agreed with medication regimen described above. LABS: Reviewed and discussed most recent labs results. MEDICATION CONTRACT: Patient agreed to take medication only as prescribed and acknowledges that services may be terminated if prescription abuse is observed. SAFETY PLAN: Patient is to alert team if symptoms worsen. Team will monitor for development of suicidal ideations or an acute medication reaction. - Call 911 or present to nearest Emergency Room in case of crisis / suicidal thoughts upon discharge. EDUCATION/CONSENT: Discussed and explained all diagnoses including differential diagnosis and treatment options. Discussed risks, benefits, potential side effects, contraindications, potential drug-drug interactions, alternatives to current medications and medication allergies as noted above. Discussed continuing to monitor for side effects and treatment efficacy prospectively and delineated patient's involvement and responsibility in monitoring for side effects and efficacy. Alban amaya expressed understanding of these recommendations. BARRIERS TO LEARNING: Patient demonstrates a readiness to learn. Patient verbalizes understanding and agrees to plan. No barriers to communication noted. MEDICATION RECONCILIATION: Medications were reviewed and reconciled with the patient. PREVENTATIVE RECOMMENDATIONS: Preventative Health Education Counseling: discussed proper diet/nutrition, exercise, and sleep hygiene. The patient was encouraged to avoid nicotine, alcohol and illicit drugs at all times. The patient was made aware that records from the u/s can be sent to his/her PCP at any time that he/she requests. * Alyssa Vargas, RD - 07/19/2024 3:00 PM ESTAssociated Order(s): IP CONSULT TO NUTRITION SERVICES 07/19/2024 @ 3:05 PM EST Nutrition Consult Note/Nutrition Assessment Reason for RD Intervention: Assessment Type: Provider Consult Reason for Assessment: Tube Feeding Anthropometrics: Height: 175.3 cm (69.02 ) Weight: 77.1 kg (169 lb 15.6 oz) Weight Method: Stated BMI (Calculated): 25.1 BMI Class: Overweight IBW (lbs): 160 % IBW: 106.23 Recent Weight Change: Yes Other (Comment): 230 pounds March 2024 (4 months ago), 26% loss of body weight in 4 months- significant ABW Needed: No Current Diet and Supplements: Dietary Orders (From admission, onward) Start Ordered 07/19/24 1137 Adult diet [facility]; General, Modified Consistency Options for Liquids and Solids; Regular; Full Liquid Diet effective now Question Answer Comment Location [facility] Diet Type (req) General Diet Type (req) Modified Consistency Options for Liquids and Solids General Diet Regular Modified Consistency Options for Liquids and Solids Full Liquid 07/19/24 1136 History of presenting illness: Patient is a 68 y.o. male with a history of Past Medical History: Diagnosis Date CAD (coronary artery disease) Cancer (CMS/HCC) Gallstone pancreatitis 07/07/2024 History of myocardial infarction 07/07/2024 Hypertension Past Surgical History: Procedure Laterality Date CHOLECYSTECTOMY admitted 07/18/2024 with Weakness. Food/Nutrition History: Previously prescribed diets: Enteral nutrition order Tube Feeding Formula/Solution: Isosource 1.5- 6 cartons per day (1.5 carton 3 times per day). to provide 2250 caloires, 102 g protein, 1146 ml free water. Feeding Tube Flush: pt takes about 600 ml water with each bolus (1800 ml per day) Previous Diet / Nutrition Education / Counseling: pt is followed by [facility] at [facility]. Follows bascially a full liquid diet (can tolerate yogurt, soup, mac and cheese, meatloaf. can not tolerate mashed potatoes, gaterade) Appetite PREMISES TECHNICIAN: Poor Intake PREMISES TECHNICIAN: Decreased Weight History: Wt Readings from Last 10 Encounters: 07/19/24 77.1 kg (169 lb 15.6 oz) 07/16/24 77.1 kg (170 lb) 07/07/24 77.4 kg (170 lb 9.6 oz) 06/10/24 78.9 kg (174 lb) 02/15/24 93.3 kg (205 lb 9.6 oz) 09/08/22 100 kg (221 lb) 01/02/22 102 kg (224 lb 6.4 oz) 09/15/21 99.3 kg (219 lb) Subjective Assessment: Pt admitted with altered mental status, weakness, decreased po intake, having nightmares and hallucinations. Pt had a fall last week likely thought to be from hyponatremia. Pt has a history of tonsillar cancer. Underwent chemo and radiation 04/13 to 05/14. Pt was 230 pound before treatments in March and is down to 170 pounds now. Pt takes small amounts of PO as able. Pt mainly gets nutrition from G tube feeds. Pt initially started taking 1 carton of Isosource daily and now takes 6 cartons daily (split into 1.5 cartons 3 times per day). Pt splits water flushes in to 300 ml 6 times per day. Pt is also supposed to be drinking 1/2 gallon (about 1800 ml) fluid per day. Pt states he has not been able to drink that much recently. Pt [facility] and has been following basicallya full liquid diet with some soft solids. Nutrition-Related Lab Values: Results from last 7 days Lab Units 07/19/24 0643 07/18/24 1805 07/18/24 1647 SODIUM mmol/L 132* -- 129* POTASSIUM mmol/L 4.2 -- 4.2 MAGNESIUM mg/dL 2.0 -- -- CHLORIDE mmol/L 100 -- 95* CO2 mmol/L 25 -- 27 BUN mg/dL 12 -- 14 CREATININE mg/dL 0.62* -- 0.50* EGFR mL/min/1.73m2 105 -- 112 CALCIUM mg/dL 9.2 -- 8.9 BILIRUBIN TOTAL mg/dL -- -- 0.8 ALK PHOS unit/L -- -- 104 ALT unit/L -- -- 41 AST unit/L -- -- 24 POCT GLUCOSE -- < > -- GLUCOSE POC -- < > -- GLUCOSE mg/dL 113* -- 90 WBC AUTO K/mcL 7.2 -- 6.0 < > = values in this interval not displayed. No results found for: LIPASE Results from last 7 days Lab Units 07/18/24 1647 CHOLESTEROL mg/dL 89 TRIGLYCERIDES mg/dL 53 HDL mg/dL 46 Results from last 7 days Lab Units 07/18/24 1647 HEMOGLOBIN A1C % 4.9 Medications: aspirin, 81 mg, oral, Daily buPROPion XL, 300 mg, oral, Daily enoxaparin, 40 mg, subcutaneous, q24h OTIS CONTINUOUS: Energy Needs: kcal, gm protein, mL fluid per day. Total Energy Estimated Needs: based on estimated weight: [id number] (30-35 jaimie/kg), 92-116 g protein (1.2-1.5 g/kg), [id number] ml fluid (30-35 ml/kg) Height: 175.3 cm (69.02 ) Weight Used for Equation Calculations: 77.1 kg (169 lb 15.6 oz) [place] Equation: [address] [place] Jeor Equation (Overweight or Obese Patients): 1542 Temp: 36.5 ??C (97.7 ??F) Food/Nutrition-Current Status: Intake Type: P.O. (Full liquids. Tube feeds from home.) Current Diet Status: Appropriate Current Supplement Status: Appropriate (not ordered) Appetite: Poor Intake Amount (%): Bits/Sips Intake Assessment: Inadequate (inadequate PO, supplementing with tube feeds) Main IVF: None Propofol?: No Nutrition Focused Physical Findings: Overall Appearance: pt lying in bed, flushing his tube with water Digestive System (Mouth to Rectum): Swallowing difficulty, Appetite change, Tast alterations Nerves and Cognition: Alert, Oriented Skin: intact Loss of Fat Location: Orbital, Buccal, Triceps, Ribs Loss of Fat Amt-Orbital: Mild Loss of Fat Amt-Buccal: Mild Loss of Fat Amt-Triceps: Mild Loss of Fat Amt-Ribs: Mild Loss of Muscle Location: Temples, Clavicle, Shoulders, Scapula, Interosseous, Thigh, Calf Loss of Muscle Amt-Temples: Mild Loss of Muscle Amt-Clavicle: Mild Loss of Muscle Amt-Shoulders: Mild Loss of Muscle Amt-Inter Musc: Mild Loss of Muscle Amt-Scapula: Mild Loss of Muscle Amt-Thigh: Moderate Loss of Muscle Amt-Calf: Mild Nutrition Diagnosis: Code Type: Moderate-Chronic (E44.0) (patient meets criteria for moderate chronic malnutrition (in the setting of cancer) as evidenced by 26% loss of body weight in 4 months, mild fat loss (orbits, buccal, triceps, ribs), mild muscel loss (clavicle, shoulder, interosseus, scapula) mild/moderate muscle loss (buddhist,calf,thigh)) Moderate-Chronic Criteria: Weight Loss 10%/6mos, Mild Body Fat Depletion, Mild Muscle Mass Depletion Status: New Diagnosis: Malnutrition Etiology: Increased energy needs Symptoms: as evidenced by mild fat loss, mild to moderate muscle loss, and 26% loss of body weight in 4 months Additional Nutrition Diagnosis?: Yes Status: New Diagnosis: Swallowing Difficulty Etiology: Physiologic causes Symptoms: as evidenced by need for full liquid diet and supplemental tube feeds Nutrition Interventions: Enteral Nutrition Enteral Nutrition: Access Type: G-tube Formula: Other (Comment) (feeds from home: Isosource 1.5- 6 cartons daily ( 1.5 cartons TID), 600 ml water flush TID.) Feeding Type: Bolus Water Flush: 300 mL Water Flush Frequency: (6 times per day) Goals: EN: Patient tolerating goal TF. , Monitor/control glucose levels, Electrolytes within normal range., Maintain weight., Stooling appropriately., and Maintain skin integrity. Coordination of Patient Care: Discussed with RN via [facility] Secure Chat/Haiku. and Care plan discussed with patient/family. Monitoring/Evaluation: Fluid/Beverage Intake, Weight, Renal/Electrolyte Profile, Gastrointestinal Profile, Enteral Nutrition Intake Nutrition Recommendations/Plan of Care: Follow Up: Nutrition Priority Level: High Follow up Date: 07/21/24 Please consult nutrition if needed sooner. Nutritional Discharge Recommendations: RD remains available and will continue to follow. Signature: Alyssa Vargas RD documented in this encounter Plan of Treatment Upcoming Encounters Date Type Department Care Team (Late st Contact Info) Description 08/02/2024 12:30 PM EST Treatment [facility] Occupational Therapy [address] [id number] Leticia Lau, OTR/L documented as of this encounter Procedures Procedure Name Priority Date/Time Associated Diagnosis Comments LIPID PANEL WITH REFLEX TO DIRECT LDL Routine 07/20/2024 6:12 AM EST BASIC METABOLIC PANEL Routine 07/20/2024 6:12 AM EST MR BRAIN WO CONTRAST Routine 07/19/2024 8:56 AM EST CBC WITH AUTO DIFFERENTIAL Routine 07/19/2024 6:43 AM EST CBC AND DIFFERENTIAL Routine 07/19/2024 6:43 AM EST MAGNESIUM Routine 07/19/2024 6:43 AM EST BASIC METABOLIC PANEL Routine 07/19/2024 6:[address] NECK SOFT TISSUE W CONTRAST STAT 07/18/2024 11:[address] HEAD WO AND W CONTRAST STAT 07/18/2024 11:45 PM EST URINALYSIS WITH REFLEX MICROSCOPIC AND CULTURE STAT 07/18/2024 8:43 PM EST CONTRERAS URINE CULTURE TUBE STAT 07/18/2024 8:43 PM EST URINALYSIS WITH REFLEX MICROSCOPIC AND CULTURE STAT 07/18/2024 8:43 PM EST ECG 12-LEAD STAT 07/18/2024 6:26 PM EST POC GLUCOSE STAT 07/18/2024 6:08 PM EST POCT GLUCOSE BLOOD Routine 07/18/2024 6: 05 PM EST LIPID PANEL WITH REFLEX TO DIRECT LDL Add-On 07/18/2024 4:47 PM EST CBC WITH AUTO DIFFERENTIAL STAT 07/18/2024 4:47 PM EST CBC AND DIFFERENTIAL STAT 07/18/2024 4:47 PM EST HEMOGLOBIN A1C Add-On 07/18/2024 4:47 PM EST AMMONIA STAT 07/18/2024 4:47 PM EST COMPREHENSIVE METABOLIC PANEL STAT 07/18/2024 4:47 PM EST ECG ANNOTATED 07/18/2024 documented in this encounter Results * (ABNORMAL) Basic metabolic panel (07/20/2024 6:12 AM EST) Sodium 133 133 - 145 mmol/L LAB CHEMISTRY METHOD 07/20/2024 7:20 AM [facility] Potassium 3.8 3.5 - 5.5 mmol/L LAB CHEMISTRY METHOD 07/20/2024 7:20 AM [facility] Chloride 98 96 - 110 mmol/L LAB CHEMISTRY METHOD 07/20/2024 7:20 AM [facility] CO2 28 21 - 32 mmol/L LAB CHEMISTRY METHOD 07/20/2024 7:20 AM [facility] Anion Gap 7 3 - 11 LAB CHEMISTRY METHOD 07/20/2024 7:20 AM [facility] Glucose 84 70 - 100 mg/dL LAB CHEMISTRY METHOD 07/20/2024 7:20 AM [facility] BUN 17 5 - 25 mg/dL LAB CHEMISTRY METHOD 07/20/2024 7:20 AM [facility] Creatinine 0.60(L) 0.70 - 1.30 mg/dL LAB CHEMISTRY METHOD 07/20/2024 7:20 AM [facility] eGFR 106 >=60 mL/min/1. 73m2 LAB CHEMISTRY METHOD 07/20/2024 7:20 AM [facility] Comment:Calculation based on the??Chronic Kidney Disease Epidemiology Collaboration (CKD-EPI) equation refit??without adjustment for race. BUN/Creatinine Ratio 28.3 LAB CHEMISTRY METHOD 07/20/2024 7:20 AM [facility] Calcium 8.6 8.5 - 10.5 mg/dL LAB CHEMISTRY METHOD 07/20/2024 7:20 AM [facility] Blood Venous blood specimen / Unknown Venipuncture / Unknown 07/20/2024 6:12 AM EST 07/20/2024 6:30 AM EST Flakita Dobson NP LAB BLOOD ORDERABLES [facility] [address] [place] [address], * Lipid panel with reflex to direct LDL (07/20/2024 6:12 AM EST) Cholesterol 89 0 - 200 mg/dL LAB CHEMISTRY METHOD 07/20/2024 8:02 AM [facility] Triglycerides 43 0 - 150 mg/dL LAB CHEMISTRY METHOD 07/20/2024 8:02 AM [facility] HDL 50 >=40 mg/dL LAB CHEMISTRY METHOD 07/20/2024 8:02 AM [facility] LDL Calculated 30 0 - 100 mg/dL LAB CHEMISTRY METHOD 07/20/2024 8:02 AM [facility] VLDL Cholesterol Jaimie 8.6 mg/dL LAB CHEMISTRY METHOD 07/20/2024 8:02 AM [facility] Non HDL Chol. (LDL+VLDL) 39 <145 mg/dL LAB CHEMISTRY METHOD 07/20/2024 8:02 AM [facility] Chol/HDL Ratio 1.8 0.0 - 4.4 LAB CHEMISTRY METHOD 07/20/2024 8:02 AM [facility] Blood Venous blood specimen / Unknown Venipuncture / Unknown 07/20/2024 6:12 AM EST 07/20/2024 6:30 AM EST Flakita Dobson NP LAB BLOOD ORDERABLES [facility] ([facility]) [facility] [address] [place] [address], * MR Brain wo Contrast (07/19/2024 8:56 [...] Signed Date: 07/19/2024 09:51 ET Workstation ID: [id number] Transcribed By: Self Edit Transcribed Date: 07/19/2024 [...] Signed Date: 07/19/2024 09:51 ET Workstation ID: [id number] Transcribed By: Self Edit Transcribed Date: 07/19/2024 09:39 ET Cipriano Almanza MD [facility] [place] * (ABNORMAL) CBC auto differential (07/19/2024 6:43 AM EST) WBC 7.2 4.8 - 10.8 /[facility] LAB HEMETOLOGY METHOD 07/19/2024 7:08 AM EST [facility] RBC 4.20(L) 4.50 - 5.50 M/mcL LAB HEMETOLOGY METHOD 07/19/2024 7:08 AM [facility] Hemoglobin 13.6 13.5 - 17.5 g/dL LAB HEMETOLOGY METHOD 07/19/2024 7:08 AM [facility] Hematocrit 39.4(L) 42.0 - 54.0 % LAB HEMETOLOGY METHOD 07/19/2024 7:08 AM [facility] MCV 94.3 79.0 - 98.0 FL LAB HEMETOLOGY METHOD 07/19/2024 7:08 AM [facility] MCH 32.5(H) 27.0 - 32.0 pcg LAB HEMETOLOGY METHOD 07/19/2024 7:08 AM [facility] MCHC 34.5 32.0 - 37.0 g/dL LAB HEMETOLOGY METHOD 07/19/2024 7:08 AM [facility] RDW 13.9 11.0 - 15.0 % LAB HEMETOLOGY METHOD 07/19/2024 7:08 AM [facility] Platelets 158 130 - 400 K/mcL LAB HEMETOLOGY METHOD 07/19/2024 7:08 AM [facility] MPV 8.8 7.0 - 11.0 FL LAB HEMETOLOGY METHOD 07/19/2024 7:08 AM [facility] NRBC 0.0 <1.0 % LAB HEMETOLOGY METHOD 07/19/2024 7:08 AM [facility] NRBC Absolute 0.00 <0.10 K/mcL LAB HEMETOLOGY METHOD 07/19/2024 7:08 AM [facility] Neutrophils Relative 84.0 % LAB HEMETOLOGY METHOD 07/19/2024 7:08 AM [facility] Lymphocytes Relative 9.8 % LAB HEMETOLOGY METHOD 07/19/2024 7:08 AM [facility] Monocytes Relative 5.5 % LAB HEMETOLOGY METHOD 07/19/2024 7:08 AM [facility] Eosinophils Relative 0.0 % LAB HEMETOLOGY METHOD 07/19/2024 7:08 AM [facility] Basophils Relative 0.0 % LAB HEMETOLOGY METHOD 07/19/2024 7:08 AM [facility] Immature Granulocytes Relative 0.7 % LAB HEMETOLOGY METHOD 07/19/2024 7:08 AM [facility] Neutrophils Absolute 6.07 1.50 - 7.00 K/mcL LAB HEMETOLOGY METHOD 07/19/2024 7:08 AM [facility] Lymphocytes Absolute 0.71(L) 1.00 - 5.00 K/mcL LAB HEMETOLOGY METHOD 07/19/2024 7:08 AM [facility] Monocytes Absolute 0.40 0.20 - 1.00 K/mcL LAB HEMETOLOGY METHOD 07/19/2024 7:08 AM [facility] Eosinophils Absolute 0.00 0.00 - 0.50 K/mcL LAB HEMETOLOGY METHOD 07/19/2024 7:08 AM [facility] Basophils Absolute 0.00 0.00 - 0.20 K/mcL LAB HEMETOLOGY METHOD 07/19/2024 7:08 AM [facility] Immature Granulocytes Absolute 0.05(H) 0.00 - 0.03 K/mcL LAB HEMETOLOGY METHOD 07/19/2024 7:08 AM [facility] Blood Venous blood specimen / Unknown Venipuncture / Unknown 07/19/2024 6:43 AM EST 07/19/2024 6:55 AM EST Cipriano Almanza MD LAB BLOOD ORDERABLES [facility] [address] [place] [address], [place] [phone] * Magnesium (07/19/2024 6:43 AM EST) [facility] Magnesium 2.0 1.9 - 2.6 mg/dL LAB CHEMISTRY METHOD 07/19/2024 7:18 AM EST [facility] Blood Venous blood specimen / Unknown Venipuncture / Unknown 07/19/2024 6:43 AM EST 07/19/2024 6:55 AM EST Cipriano Almanza MD LAB BLOOD ORDERABLES [facility] [address] [place] [address], [place] [phone] * (ABNORMAL) Basic metabolic panel (07/19/2024 6:43 AM EST) [facility] Sodium 132(L) 133 - 145 mmol/L LAB CHEMISTRY METHOD 07/19/2024 7:18 AM [facility] Potassium 4.2 3.5 - 5.5 mmol/L LAB CHEMISTRY METHOD 07/19/2024 7:18 AM [facility] Chloride 100 96 - 110 mmol/L LAB CHEMISTRY METHOD 07/19/2024 7:18 AM [facility] CO2 25 21 - 32 mmol/L LAB CHEMISTRY METHOD 07/19/2024 7:18 AM [facility] Anion Gap 7 3 - 11 LAB CHEMISTRY METHOD 07/19/2024 7:18 AM [facility] Glucose 113(H) 70 - 100 mg/dL LAB CHEMISTRY METHOD 07/19/2024 7:18 AM [facility] BUN 12 5 - 25 mg/dL LAB CHEMISTRY METHOD 07/19/2024 7:18 AM [facility] Creatinine 0.62(L) 0.70 - 1.30 mg/dL LAB CHEMISTRY METHOD 07/19/2024 7:18 AM EST [facility] eGFR 105 >=60 mL/min/1. 73m2 LAB CHEMISTRY METHOD 07/19/2024 7:18 AM EST [facility] Comment:Calculation based on the??Chronic Kidney Disease Epidemiology Collaboration (CKD-EPI) equation refit??without adjustment for race. BUN/Creatinine Ratio 19.4 LAB CHEMISTRY METHOD 07/19/2024 7:18 AM EST [facility] Calcium 9.2 8.5 - 10.5 mg/dL LAB CHEMISTRY METHOD 07/19/2024 7:18 AM EST [facility] Blood Venous blood specimen / Unknown Venipuncture / Unknown 07/19/2024 6:43 AM EST 07/19/2024 6:55 AM EST Cipriano Almanza MD LAB BLOOD ORDERABLES [facility] [address] [place] [address], * CT Neck Soft Tissue w Contrast [...] Antonio MD on 07/19/2024 00:46:13 Emmett DELGADO [facility] [place] * CT Head wo and [...] Antonio MD on 07/19/2024 00:40:[address] PROCEDURES * Contreras urine culture tube (07/18/2024 8:43 PM EST) Pathologist [facility] Extra Tube Hold for add-ons. 07/18/2024 10:01 PM [facility] Comment:Auto resulted. Urine Urine specimen obtained by clean catch procedure / Unknown Non-blood Collection / Unknown 07/18/2024 8:43 PM EST 07/18/2024 8:56 PM EST Jesus Alberto Farah MD LAB URINE ORDERAB LES [facility] [address] [place] [address], * Urinalysis with reflex microscopic and culture (07/18/2024 8:43 PM EST) [facility] Specific [place] Urine 1.014 1.003 - 1.030 LAB URINALYSIS - AUTOMATED METHOD 07/18/2024 9:36 PM [facility] pH, Urine 7.0 5.0 - 8.0 pH LAB URINALYSIS - AUTOMATED METHOD 07/18/2024 9:36 PM [facility] Leukocytes, Urine Negative Negative LAB URINALYSIS - AUTOMATED METHOD 07/18/2024 9:36 PM [facility] Nitrite, Urine Negative Negative LAB URINALYSIS - AUTOMATED METHOD 07/18/2024 9:36 PM EST [facility] Protein, Urine Negative <=Trace mg/dL LAB URINALYSIS - AUTOMATED METHOD 07/18/2024 9:36 PM [facility] Glucose, Urine Negative Negative mg/dL LAB URINALYSIS - AUTOMATED METHOD 07/18/2024 9:36 PM [facility] Ketones, Urine Negative Negative mg/dL LAB URINALYSIS - AUTOMATED METHOD 07/18/2024 9:36 PM [facility] Urobilinogen, Urine 1.0 0.2 - 1.0 mg/dL LAB URINALYSIS - AUTOMATED METHOD 07/18/2024 9:36 PM [facility] Bilirubin, Urine Negative Negative LAB URINALYSIS - AUTOMATED METHOD 07/18/2024 9:36 PM [facility] Blood, Urine Negative Negative LAB URINALYSIS - AUTOMATED METHOD 07/18/2024 9:36 PM [facility] Urine Urine specimen obtained by clean catch procedure / Unknown Non-blood Collection / Unknown 07/18/2024 8:43 PM EST 07/18/2024 8:56 PM EST Jesus Alberto Farah MD LAB URINE ORDERAB LES [facility] [address] [place] [address], * ECG 12 lead (07/18/2024 6:26 PM EST) Ventricular Rate ECG 76 BPM GEMUSE Atrial Rate 76 BPM GEMUSE P-R Interval 176 ms GEMUSE QRS Duration 88 ms GEMUSE Q-T Interval 384 ms GEMUSE QTc 432 ms GEMUSE P Wave [place] 28 degrees GEMUSE R [place] 73 degrees GEMUSE T [place] 36 degrees GEMUSE ECG Interpretation Normal sinus rhythm Normal ECG When compared with ECG of 16-JUL-2024 23:11, No significant change was found Confirmed by HERNANDEZ SIMPSON ([id number]) on 07/19/2024 10:51:56 PM GEMUSE 07/18/2024 6:26 PM EST 07/19/2024 10:51 PM EST Jesus Alberto Farah MD ECG ORDERABLES GEMUSE * (ABNORMAL) POC glucose manually resulted (07/18/2024 6:08 PM EST) Glucose POC 171(A) 70 - 110 mg/dL Blood Capillary blood specimen / Unknown 07/18/2024 6:08 PM EST Jesus Alberto Farah MD POINT OF CARE KARLA T ENTER/EDIT ORDERABLES * (ABNORMAL) POCT Glucose, blood (07/18/2024 6:05 PM EST) Glucose POCT 171(H) 70 - 100 mg/dL 07/18/2024 6:07 PM EST [facility] Blood Capillary blood specimen / Unknown 07/18/2024 6:05 PM EST 07/18/2024 6:08 PM EST Jesus Alberto Farah MD LAB POINT OF CARE TEST DOCKED DEVICE UNSOLICITED RESULTS Performing Organization Address [facility]/ZIP Co de Phone Number [facility] [address] [place] [address], * Lipid panel with reflex to direct LDL (07/18/2024 4:47 PM EST) Cholesterol 89 0 - 200 mg/dL LAB CHEMISTRY METHOD 07/19/2024 7:08 AM EST [facility] Triglycerides 53 0 - 150 mg/dL LAB CHEMISTRY METHOD 07/19/2024 7:08 AM EST [facility] HDL 46 >=40 mg/dL LAB CHEMISTRY METHOD 07/19/2024 7:08 AM EST [facility] LDL Calculated 32 0 - 100 mg/dL LAB CHEMISTRY METHOD 07/19/2024 7:08 AM [facility] VLDL Cholesterol Jaimie 10.6 mg/dL LAB CHEMISTRY METHOD 07/19/2024 7:08 AM [facility] Non HDL Chol. (LDL+VLDL) 43 <145 mg/dL LAB CHEMISTRY METHOD 07/19/2024 7:08 AM [facility] Chol/HDL Ratio 1.9 0.0 - 4.4 LAB CHEMISTRY METHOD 07/19/2024 7:08 AM [facility] Blood Venous blood specimen / Unknown Venipuncture / Unknown 07/18/2024 4:47 PM EST 07/18/2024 4:55 PM EST Cipriano Almanza MD LAB BLOOD ORDERABLES Performing Organization Address [facility]/ZIP Co de Phone Number [facility] [address] [place] [address], [place] [phone] * Hemoglobin A1c (07/18/2024 4:47 PM EST) Hemoglobin A1C 4.9 <6.5 % LAB CHEMISTRY METHOD 07/19/2024 11:21 AM [facility] Mean Bld Glu Estim. 94 mg/dL LAB CHEMISTRY METHOD 07/19/2024 11:21 AM [facility] Blood Venous blood specimen / Unknown Venipuncture / Unknown 07/18/2024 4:47 PM EST 07/18/2024 4:55 PM EST Cipriano Almanza MD LAB BLOOD ORDERABLES [facility] [address] [place] [address], [place] [phone] * (ABNORMAL) CBC auto differential (07/18/2024 4:47 PM EST) WBC 6.0 4.8 - 10.8 K/mcL LAB HEMETOLOGY METHOD 07/18/2024 5:05 PM [facility] RBC 3.90(L) 4.50 - 5.50 M/mcL LAB HEMETOLOGY METHOD 07/18/2024 5:05 PM [facility] Hemoglobin 12.4(L) 13.5 - 17.5 g/dL LAB HEMETOLOGY METHOD 07/18/2024 5:05 PM [facility] Hematocrit 36.2(L) 42.0 - 54.0 % LAB HEMETOLOGY METHOD 07/18/2024 5:05 PM [facility] MCV 93.1 79.0 - 98.0 FL LAB HEMETOLOGY METHOD 07/18/2024 5:05 PM [facility] MCH 31.9 27.0 - 32.0 pcg LAB HEMETOLOGY METHOD 07/18/2024 5:05 PM [facility] MCHC 34.3 32.0 - 37.0 g/dL LAB HEMETOLOGY METHOD 07/18/2024 5:05 PM [facility] RDW 14.0 11.0 - 15.0 % LAB HEMETOLOGY METHOD 07/18/2024 5:05 PM [facility] Platelets 148 130 - 400 K/mcL LAB HEMETOLOGY METHOD 07/18/2024 5:05 PM [facility] MPV 9.2 7.0 - 11.0 FL LAB HEMETOLOGY METHOD 07/18/2024 5:05 PM [facility] NRBC 0.0 <1.0 % LAB HEMETOLOGY METHOD 07/18/2024 5:05 PM [facility] NRBC Absolute 0.00 <0.10 K/mcL LAB HEMETOLOGY METHOD 07/18/2024 5:05 PM [facility] Neutrophils Relative 69.3 % LAB HEMETOLOGY METHOD 07/18/2024 5:05 PM [facility] Lymphocytes Relative 14.6 % LAB HEMETOLOGY METHOD 07/18/2024 5:05 PM [facility] Monocytes Relative 14.1 % LAB HEMETOLOGY METHOD 07/18/2024 5:05 PM [facility] Eosinophils Relative 1.2 % LAB HEMETOLOGY METHOD 07/18/2024 5:05 PM [facility] Basophils Relative 0.3 % LAB HEMETOLOGY METHOD 07/18/2024 5:05 PM [facility] Immature Granulocytes Relative 0.5 % LAB HEMETOLOGY METHOD 07/18/2024 5:05 PM [facility] Neutrophils Absolute 4.13 1.50 - 7.00 K/mcL LAB HEMETOLOGY METHOD 07/18/2024 5:05 PM [facility] Lymphocytes Absolute 0.87(L) 1.00 - 5.00 K/mcL LAB HEMETOLOGY METHOD 07/18/2024 5:05 PM [facility] Monocytes Absolute 0.84 0.20 - 1.00 K/mcL LAB HEMETOLOGY METHOD 07/18/2024 5:05 PM [facility] Eosinophils Absolute 0.07 0.00 - 0.50 K/mcL LAB HEMETOLOGY METHOD 07/18/2024 5:05 PM [facility] Basophils Absolute 0.02 0.00 - 0.20 K/mcL LAB HEMETOLOGY METHOD 07/18/2024 5:05 PM [facility] Immature Granulocytes Absolute 0.03 0.00 - 0.03 K/mcL LAB HEMETOLOGY METHOD 07/18/2024 5:05 PM [facility] Blood Venous blood specimen / Unknown Venipuncture / Unknown 07/18/2024 4:47 PM EST 07/18/2024 4:55 PM EST Jesus Alberto Farah MD LAB BLOOD ORDERAB LES Performing Organization Address [facility]/ZIP Co de Phone Number [facility] [address] [place] [address], * Ammonia (07/18/2024 4:47 PM EST) Ammonia 28 11 - 35 mcmol/L LAB CHEMISTRY METHOD 07/18/2024 5:30 PM EST [facility] Blood Venous blood specimen / Unknown Venipuncture / Unknown 07/18/2024 4:47 PM EST 07/18/2024 4:54 PM EST Jesus Alberto Farah MD LAB BLOOD ORDERAB LES Performing Organization Address [facility]/ZIP Co de Phone Number [facility] [address] [place] [address], [place] [phone] * (ABNORMAL) Comprehensive metabolic panel (07/18/2024 4:47 PM EST) [facility] Sodium 129(L) 133 - 145 mmol/L LAB CHEMISTRY METHOD 07/18/2024 5:38 PM [facility] Potassium 4.2 3.5 - 5.5 mmol/L LAB CHEMISTRY METHOD 07/18/2024 5:38 PM [facility] Chloride 95(L) 96 - 110 mmol/L LAB CHEMISTRY METHOD 07/18/2024 5:38 PM [facility] CO2 27 21 - 32 mmol/L LAB CHEMISTRY METHOD 07/18/2024 5:38 PM [facility] Anion Gap 7 3 - 11 LAB CHEMISTRY METHOD 07/18/2024 5:38 PM [facility] Glucose 90 70 - 100 mg/dL LAB CHEMISTRY METHOD 07/18/2024 5:38 PM [facility] BUN 14 5 - 25 mg/dL LAB CHEMISTRY METHOD 07/18/2024 5:38 PM [facility] Creatinine 0.50(L) 0.70 - 1.30 mg/dL LAB CHEMISTRY METHOD 07/18/2024 5:38 PM [facility] eGFR 112 >=60 mL/min/1. 73m2 LAB CHEMISTRY METHOD 07/18/2024 5:38 PM [facility] Comment:Calculation based on the??Chronic Kidney Disease Epidemiology Collaboration (CKD-EPI) equation refit??without adjustment for race. BUN/Creatinine Ratio 28.0 LAB CHEMISTRY METHOD 07/18/2024 5:38 PM [facility] Calcium 8.9 8.5 - 10.5 mg/dL LAB CHEMISTRY METHOD 07/18/2024 5:38 PM [facility] AST (SGOT) 24 10 - 42 unit/L LAB CHEMISTRY METHOD 07/18/2024 5:38 PM [facility] ALT (SGPT) 41 10 - 60 unit/L LAB CHEMISTRY METHOD 07/18/2024 5:38 PM [facility] Alkaline Phosphatase 104 42 - 121 unit/L LAB CHEMISTRY METHOD 07/18/2024 5:38 PM [facility] Total Protein 6.6 6.0 - 8.0 g/dL LAB CHEMISTRY METHOD 07/18/2024 5:38 PM [facility] Albumin 3.5 3.2 - 5.0 g/dL LAB CHEMISTRY METHOD 07/18/2024 5:38 PM [facility] Total Bilirubin 0.8 0.0 - 1.4 mg/dL LAB CHEMISTRY METHOD 07/18/2024 5:38 PM [facility] Blood Venous blood specimen / Unknown Venipuncture / Unknown 07/18/2024 4:47 PM EST 07/18/2024 4:55 PM EST Jesus Alberto Farah MD LAB BLOOD ORDERAB LES [facility] [address] [place] [address], [place] [phone] * ECG-Annotated (07/18/2024) Provider Onbase MD ECG ORDERABLES documented in this encounter Visit Diagnoses Diagnosis Weakness- Primary Other malaise and fatigue Dysphagia, unspecified type Unstable gait Abnormality of gait Moderate malnutrition (CMS/HCC) documented in this encounter Admitting Diagnoses Diagnosis Weakness Other malaise and fatigue documented in this encounter Administered Medications Inactive Administered Medications - up to 3 most recent administrations Medication Order MAR Action Action Date Dose Rate Site aluminum-magnesium hydroxide-simethicone (MAALOX) 200-200-20 mg/5 mL suspension 10 mL 10 mL, oral, Every 6 hours PRN, indigestion, heartburn, Starting on Wed07/19/24 at 1812 aspirin EC tablet 81 mg 81 mg, oral, Daily, First dose (after last modification) on Wed07/19/24 at 0900, Do not crush, chew, or split. Given 07/20/2024 9:05 AM EST 81 mg Given 07/19/2024 9:45 AM EST 81 mg atorvastatin (LIPITOR) tablet 40 mg 40 mg, oral, Nightly, First dose on Wed07/19/24 at 2100 Given 07/19/2024 8:44 PM EST 40 mg buPROPion XL (WELLBUTRIN XL) 24 hr tablet 300 mg 300 mg, oral, Daily, First dose on Wed07/19/24 at 0900, Do not crush, chew, or split. Given 07/19/2024 9:46 AM EST 300 mg diphenhydrAMINE (BENADRYL) injection 50 mg 50 mg, intramuscular, Once, On Wed07/18/24 at 2206, For 1 dose Given 07/18/2024 10:17 PM EST 50 mg Left Deltoid enoxaparin (LOVENOX) injection 40 mg 40 mg, subcutaneous, Every 24 hours scheduled, First dose on Wed07/19/24 at 0900, Indication: VTE/PE Prophylaxis Given 07/20/2024 9:06 AM EST 40 mg Right Lower Abdomen FLUoxetine (PROzac) capsule 20 mg 20 mg, oral, Daily, First dose on Wed07/19/24 at 1841, Indications: anxiety with depression Given 07/20/2024 9:05 AM EST 20 mg Given 07/19/2024 7:03 PM EST 20 mg hydrocortisone sod succ (PF) (SOLU-CORTEF) injection 200 mg 200 mg, intravenous, Once, On Wed07/18/24 at 1710, For 1 dose Given 07/18/2024 5:25 PM EST 200 mg hydrocortisone sod succ (PF) (SOLU-CORTEF) injection 200 mg 200 mg, intravenous, Once, On Wed07/18/24 at 2105, For 1 dose Given 07/18/2024 9:23 PM EST 200 mg iopamidoL (ISOVUE-370) 370 mg iodine /mL (76 %) injection 90 mL 90 mL, intravenous, Once in imaging, Starting on Wed07/19/24 at 0023, For 1 dose Given 07/19/2024 12:24 AM EST 90 mL metoprolol succinate (TOPROL-XL) 24 Hour tablet 50 mg 50 mg, oral, Daily, First dose on Wed07/19/24 at 1841, Do not crush or chew. Given 07/20/2024 9:05 AM EST 50 mg Given 07/19/2024 7:03 PM EST 50 mg pantoprazole (PROTONIX) EC tablet 40 mg 40 mg, oral, Daily, First dose on Wed07/19/24 at 1841, Do not crush, chew, or split. Given 07/20/2024 9:05 AM EST 40 mg Given 07/19/2024 7:03 PM EST 40 mg sodium chloride 0.9 % bolus 1,000 mL 1,000 mL, intravenous, at 1,000 mL/hr, Administer over 1 Hours, Once, On Wed07/18/24 at 1806, For 1 dose New Bag 07/18/2024 6:39 PM EST 1,000 mL 1000 mL/hr sodium chloride 0.9 % flush 10 mL 10 mL, intravenous, Once, On Wed07/19/24 at 0025, For 1 dose Given 07/19/2024 12:24 AM EST 10 mL documented in this encounter Discontinued Medications Medication Sig Discontinue Reason Start Date End Da te atorvastatin (LIPITOR) 40 mg tablet Take 1 tablet (40 mg total) via g-tube at bedtime. Entered in Error 09/08/2023 07/19/2024 FLUoxetine (PROzac) 20 mg capsule Take 1 capsule (20 mg total) by mouth 1 (one) time each day. 02/15/2024 07/19/2024 buPROPion XL (WELLBUTRIN XL) 150 mg 24 hr tablet Take 1 tablet (150 mg total) by mouth 1 (one) time each day at the same time. Formulary change 07/19/2024 buPROPion XL (WELLBUTRIN XL) 300 mg 24 hr tablet Take 1 tablet (300 mg total) by mouth 1 (one) time each day. Side effects 06/05/2024 07/19/2024 aspirin 325 mg capsule 81 mg by nasogastric tube route 1 (one) time each day. Side effects 04/13/2014 07/19/2024 documented as of this encounter Historical Medications * This list may reflect changes made after this encounter. Medication Sig Dispensed Refills Start Date End Date FLUoxetine (PROzac) 20 mg capsuleIndications:anx iety with depression Take 1 capsule (20 mg total) by mouth 1 (one) time each day. buPROPion XL (WELLBUTRIN XL) 150 mg 24 hr tablet Take 1 tablet (150 mg total) by mouth 1 (one) time each day at the same time. 07/19/2024 atorvastatin (LIPITOR) 40 mg tablet Take 1 tablet (40 mg total) via g-tube at bedtime. 09/08/2023 07/19/2024 aspirin 325 mg capsule 81 mg by nasogastric tube route 1 (one) time each day. 04/13/2014 07/19/2024 added in this encounter Active and Recently Administered Medications Times are shown in EST. Scheduled Medication Order 07/18/2024 07/19/2024 07/20/2024 aspirin EC tablet 81 mg 81 mg, oral, Daily, First dose (after last modification) on Wed07/19/24 at 0900, Do not crush, chew, or split. 0945 (Given - Provider: Flower Olivas RN) 0905 (Given - Provider: Hernandez Cabezas RN) atorvastatin (LIPITOR) tablet 40 mg 40 mg, oral, Nightly, First dose on Wed07/19/24 at 2100 2044 (Given - Provider: Jennifer Gutierrez RN) buPROPion XL (WELLBUTRIN XL) 24 hr tablet 300 mg (CANCELED) 300 mg, oral, Daily, First dose on Wed07/19/24 at 0900, Do not crush, chew, or split. 0946 (Given - Provider: Flower Olivas RN) diphenhydrAMINE (BENADRYL) injection 50 mg (COMPLETED) 50 mg, intramuscular, Once, On Wed07/18/24 at 2206, For 1 dose 2216 (Given - Provider: Vianey Benoit RN) enoxaparin (LOVENOX) injection 40 mg 40 mg, subcutaneous, Every 24 hours scheduled, First dose on Wed07/19/24 at 0900, Indication: VTE/PE Prophylaxis 0944 (Not Given - Provider: Flower Olivas RN - Reason: See Provider Order - Comment: Order was discontinued) 905 (Given - Provider: Hernandez Cabezas RN) FLUoxetine (PROzac) capsule 20 mg 20 mg, oral, Daily, First dose on Wed07/19/24 at 1841, Indications: anxiety with depression 1902 (Given - Provider: Flower Olivas RN) 904 (Given - Provider: Hernandez Cabezas RN) hydrocortisone sod succ (PF) (SOLU-CORTEF) injection 200 mg (COMPLETED) 200 mg, intravenous, Once, On Wed07/18/24 at 1710, For 1 dose 172 (Given - Provider: Santa Fay RN) hydrocortisone sod succ (PF) (SOLU-CORTEF) injection 200 mg (COMPLETED) 200 mg, intravenous, Once, On Wed07/18/24 at 2105, For 1 dose 2122 (Given - Provider: Vianey Benoit RN) iopamidoL (ISOVUE-370) 370 mg iodine /mL (76 %) injection 90 mL (COMPLETED) 90 mL, intravenous, Once in imaging, Starting on Wed07/19/24 at 0023, For 1 dose 0024 (Given - Provider: Gabriel Vredin) metoprolol succinate (TOPROL-XL) 24 Hour tablet 50 mg 50 mg, oral, Daily, First dose on Wed07/19/24 at 1841, Do not crush or chew. 190 (Given - Provider: Flower Olivas RN) 904 (Given - Provider: Hernandez Raulito, RN) pantoprazole (PROTONIX) EC tablet 40 mg 40 mg, oral, Daily, First dose on Wed07/19/24 at 1841, Do not crush, chew, or split. 1903 (Given - Provider: Flower Olivas RN) 09 (Given - Provider: Hernandez Cabezas, TATUM) sodium chloride 0.9 % bolus 1,000 mL (COMPLETED) 1,000 mL, intravenous, at 1,000 mL/hr, Administer over 1 Hours, Once, On Wed07/18/24 at 1806, For 1 dose 1839 (New Bag - Provider: Magali Vasquez RN - Comment: Floating, no WOW available in pod)204 (Stopped - Provider: Vianey Benoit RN) sodium chloride 0.9 % flush 10 mL (COMPLETED) 10 mL, intravenous, Once, On Wed07/19/24 at 0025, For 1 dose 0024 (Given - Provider: Gabriel Verdin) PRN Medication Order 07/18/2024 07/19/2024 07/20/2024 aluminum-magnesium hydroxide-simethicone (MAALOX) 200-200-20 mg/5 mL suspension 10 mL 10 mL, oral, Every 6 hours PRN, indigestion, heartburn, Starting on Wed07/19/24 at 1812 documented in this encounter Orders Medications Ordered That Eben ht Not Have Been Administered Count Last Ordered Date First Ordered Date aluminum-magnesium hydroxide -simethicone (MAALOX) 200-200-20 mg/5 mL suspension 10 mL 2 07/19/2024 aspirin EC tablet 81 mg 1 07/19/2024 enoxaparin (LOVENOX) injection 40 mg 1 06/22 FLUoxetine (PROzac) capsule 20 mg 1 025 methylPREDNISolone sodium patterson cc (SOLU-Medrol) injection 125 mg 1 07/18/2024 Consult Count Last Ordered Date First Orde red Date POST ACUTE HOME HEALTH CARE REQUEST 07/20 IP CONSULT TO NUTRITION SERVICES 07/19/19 IP CONSULT TO PSYCHIATRY 07/19/2024 Admission Count Last Ordered Date First Orde red Date INITIATE OBS ADM REQ 07/19/2024 Transfer Count Last Ordered Date First Orde red Date ED TO FLOOR BED REQUEST 07/19/2024 Discharge Count Last Ordered Date First Orde red Date DISCHARGE PATIENT 1 07/20/2024 documented in this encounter 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
--- OUTSIDE RECORDS SUMMARY | 2024-07-25 14:00 | XMS_ITS ---
Author Organization [id number] [facility] Address [address] [place] [address] Phone Care Team Providers Care Apprise Counselor Name Role Phone Min Mckenzie MD Primary Care Provider [phone] Community Health Worker Program Status:Closed (Closed) Start date:07/20/2024 Enrollment date:07/20/2024 End date:07/20/2024 Close reason:No Care Coordination Needs Identified Overview Community Health Worker Program Continued Care and Services Coordination
--- OUTSIDE RECORDS SUMMARY | 2024-07-25 14:00 | XMS_ITS | Encounter Summary ---
[facility] Address [address] [place] [id number] Care Team Providers Care Type Rolling Machine Operator Name Role Phone Min Mckenzie MD Primary Care Provider [phone] Reason for Visit * Reason Comments Head Injury * Auth/Cert (Routine) Specialty Diagnoses / Procedures Referred By Contac t Referred To Contact Diagnoses Hyponatremia Failure to thrive in adult Generalized weakness Procedures [id number] Robbi Currie MD [address] [place] [id number] [id number] Referral ID Status Reason Start Date Expiration Date Visits Re quested Visits Authorized [id number] 1 1 Encounter Details Date Type Department Care Team (Latest Contact Info) Description 07/07/2024 1:55 PM EST - 07/08/2024 4:06 PM EST Hospital Encounter [facility] Urology Unit [address] [place] [phone] Julio Kruger MD [address] [place] [id number] Robbi Currie MD [address] [place] [phone] Karel Manzanares MD [address] [place] [address] Hyponatremia (Primary Dx); Generalized weakness Discharge Disposition: Home-Health Care Svc Social History Tobacco Use Types Packs/Day Years Used Date Smoking Tobacco: Never Smokeless Tobacco: Never Alcohol Use Standard Drinks/Week Comments Yes 0 (1 standard drink = 0.6 oz pur e alcohol) Interpersonal Safety Answer Date Record ed Physical [...] Sign Reading Time Taken Comments Blood Pressure 146/88 07/08/2024 7:58 AM EST Pulse 81 07/08/2024 7:58 AM EST Temperature 36 ??C (96.8 ??F) 07/08/2024 7:58 AM EST Respiratory Rate 18 07/08/2024 7:58 AM EST Oxygen Saturation 100% 07/08/2024 7:58 AM EST Inhaled Oxygen Concentration - - Weight 77.4 kg (170 lb 9.6 oz) 07/07/2024 9:00 P M EST Height 175.3 cm (5' 9 ) 07/07/2024 9:00 PM EST Body Mass Index 25.19 07/07/2024 9:00 PM EST documented in this encounter Discharge Summaries * Karel Manzanares MD - 07/08/2024 1:57 PM EST Images from the original note were not included. GOODSPRING DISCHARGE SUMMARY Patient Information Wood Rios : 1955 [68 y.o.] Admitting Provider Robbi Currie MD Discharge Provider Karel Manzanares MD, Karel Manzanares MD Primary Care Physician Min Mckenzie MD Admission Date 07/07/2024 Discharge Date 07/08/2024 Summary of Hospital Problems Primary Discharge Diagnosis: Failure to thrive in adult Secondary Discharge Diagnosis: hyponatremia Discharge Destination: home Code Status at Discharge: Full Code - Default Hospital Course Summary LOS: 1 day H&P as on 07/07/2024 Mr. Rios is a 68-year-old male with PMH tonsil cancer ongoing chemotherapy and radiation, hyperlipidemia, hypertension, depression, anxiety, GERD, CAD amongst others seen today for complaint of weakness. Patient reports that he fell yesterday when getting out of bed and hit his head. He struckhis forehead on the eyebrow possibly on his nightstand. He is unsure if he lost consciousness. His heard the fall and found him on the ground tremulous and confused. He reportedly has been more confused over the last couple of months and has had difficulty with remembering things. He only reported a headache in the ED earlier today which is now resolved. He states that he had a cold 2 weeks ago that he is recovering from and still has some sinus congestion. He denies any dizziness or lightheadedness, chest pain, shortness of breath, productive cough, nausea, vomiting, abdominal pain, diarrhea, leg swelling. Vitals are as follows: 36.4, heart rate of 103, respiratory rate of 16, blood pressure 132/82 and pulse ox of 94% on room air. Labs are notable for sodium of 126, creatinine of 0.58, troponin of 4, creatinine kinase of 43, hemoglobin of 12.5, hematocrit of 36.3, respiratory panel negative, UA unremarkable. CT of the brain without contrast showed no acute intracranial abnormality with fluid with aerosolized secretions in the right sphenoid and maxillary sinuses which may represent sinusitis in the proper clinical setting. Patient was given 1 L of LR in the ED. He also had a small laceration above the left eyebrow for which Steri-Strips were placed and the bleeding resolved. Patient be transferred to the care of [facility] staff for further management of their failure to thrive. Hospital course Patient admitted to medical floors for further management of generalized weakness, hyponatremia, failure to thrive, altered mental status.. Patient was seen by the bedside this morning. Patient is alert and awake, not confused and answering all questions appropriately. Patient denies any nausea or vomiting. Reports feeling better and notin acute distress. Patient presenting with low sodium levels, 126. Patient received IV fluids upon presentation, sodium level subsequently improved to 132 on the day of discharge. Patient overall feeling better. Has history of tonsil cancer, completed chemotherapy, radiation. Patient tolerates full liquid dietand is on tube feeding diet at home. Patient had DEBLOCKER evaluation here in the hospital, recommending to continue full liquid diet. Will get PT evaluation prior to DC. Patient will need a repeat BMP in a week to check sodium level.Patient is stable for discharge today. Recommend outpatient PCP follow-up for transition of care. Total time spent 35 minutes doing chart review, interviewing patient, gathering information, performing physical exam, formulating plan, explaining management plan to patient, , coordinating care with RN, documentation and placing orders. This dictation was performed using voice recognition software. Word substitution may have occurred and may have gone unnoticed and uncorrected Follow-Up Instructions and Recommendations Min Mckenzie MD [phone] [facility] [phone] Schedule an appointment as soon as possible for a visit in 3 day(s) for transition of care visit, If symptoms worsen Discharge Procedure Orders Basic metabolic panel Standing Status: Future Standing Exp. Date: 07/08/25 Discharge Diet: Return to previous diet Order Specific Question Answer Comments General Instructions for your diet at home Return to previous diet Notify provider - General Order Specific Question Answer Comments Reason(s) If you are unable to obtain your medications/prescriptions Reason(s) If your symptoms return or worsen Reason(s) If you experience severe uncontrolled pain or pain not relieved by medication Reason(s) If you experience a fever above 101 degree Fahrenheit (38.3 degrees Celsius) or chills Reason(s) If you experience severe lightheadedness or dizziness Reason(s) If you experience increased confusion, irritability, slurred or incoherent speech Reason(s) If you experience increasing drowsiness or extreme fatigue Reason(s) If you experience difficulty breathing, headache, or visual disturbances Reason(s) If you experience an inability to eat, drink, or take medication Reason(s) If you experience persistent nausea or vomiting Reason(s) If you experience decreased urine output, increased heart rate, facial flushing and/or any other signs of dehydration Reason(s) If you experience skin that becomes itchy, red, swollen and/or a new rash Reason(s) If you experience unusual weight gain or loss Restrict your activities and rest today, may resume normal activity tomorrow There are no outpatient Patient Instructions on file for this admission. Discharge Medications Your medication list CONTINUE taking these medications Instructions Last Dose Given Next Dose Due atorvastatin 40 mg tablet Commonly known as: LIPITOR Take 1 tablet (40 mg total) by mouth at bedtime. buPROPion XL 300 mg 24 hr tablet Commonly known as: WELLBUTRIN XL Take 1 tablet (300 mg total) by mouth 1 (one) time each day. FLUoxetine 20 mg capsule Commonly known as: [...] day. Physical Exam at time of Discharge Physical Exam Constitutional: General: He is not in acute distress. Appearance: Normal appearance. He is not ill-appearing. HENT: Head: Normocephalic and atraumatic. Eyes: Conjunctiva/sclera: Conjunctivae normal. Cardiovascular: Rate and Rhythm: Normal rate and regular rhythm. Pulses: Normal pulses. Heart sounds: Normal heart sounds. Pulmonary: Effort: Pulmonary effort is normal. No respiratory distress. Breath sounds: Normal breath sounds. Abdominal: General: Bowel sounds are normal. There is no distension. Palpations: Abdomen is soft. Tenderness: There is no abdominal tenderness. Neurological: Mental Status: He is alert. Mental status is at baseline. Psychiatric: Mood and Affect: Mood normal. Behavior: Behavior normal. Vitals Visit Vitals BP (!) 146/88 (BP Location: Left arm, Patient Position: Lying) Pulse 81 Temp 36 ??C (96.8 ??F) (Temporal) Resp 18 Temp (24hrs), Av.5 ??C (97.7 ??F), Min:36 ??C (96.8 ??F), Max:36.9 ??C (98.4 ??F) Body mass index is 25.19 kg/m??. No results found for: PTWT , PTHT documented in this encounter Discharge Instructions * Attachments The following attachments cannot be sent through Care Everywhere. * Hyponatremia (Citizen Of [place]) * Weakness: Generalized (Citizen Of [place]) documented in this encounter Medications at Time [...] mouth 1 (one) time each day. 09/08/2023 buPROPion XL (WELLBUTRIN XL) 300 mg 24 hr tablet Take 1 tablet (300 mg total) by mouth 1 (one) time each day. 06/05/2024 07/19/2024 FLUoxetine (PROzac) 20 mg capsule Take 1 capsule (20 mg total) by mouth 1 (one) time each day. 02/15/2024 07/19/2024 aspirin 325 mg capsule 81 mg by nasogastric tube route 1 (one) time each day. 04/13/2014 07/19/2024 atorvastatin (LIPITOR) 40 mg tablet Take 1 tablet (40 mg total) via g-tube at bedtime. 09/08/2023 07/19/2024 documented as of this encounter Discharge Disposition Disposition Code Departure Means Destination Comment s Home-Health Care Svc documented in this encounter Progress Notes * Suzanne Keenan RN - 07/08/2024 2:51 PM EST Discharge packet dicussed at bedside. All medications, follow up appointments and post dc instructions reviewed and understood with patient. All questions answered and necessary teaching done. Port de-accessed. * Karel Manzanares MD - 07/08/2024 1:57 PM EST H&P as on 07/07/2024 Mr. Rios is a 68-year-old male with PMH tonsil cancer ongoing chemotherapy and radiation, hyperlipidemia, hypertension, depression, anxiety, GERD, CAD amongst others seen today for complaint of weakness. Patient reports that he fell yesterday when getting out of bed and hit his head. He struckhis forehead on the eyebrow possibly on his nightstand. He is unsure if he lost consciousness. His heard the fall and found him on the ground tremulous and confused. He reportedly has been more confused over the last couple of months and has had difficulty with remembering things. He only reported a headache in the ED earlier today which is now resolved. He states that he had a cold 2 weeks ago that he is recovering from and still has some sinus congestion. He denies any dizziness or lightheadedness, chest pain, shortness of breath, productive cough, nausea, vomiting, abdominal pain, diarrhea, leg swelling. Vitals are as follows: 36.4, heart rate of 103, respiratory rate of 16, blood pressure 132/82 and pulse ox of 94% on room air. Labs are notable for sodium of 126, creatinine of 0.58, troponin of 4, creatinine kinase of 43, hemoglobin of 12.5, hematocrit of 36.3, respiratory panel negative, UA unremarkable. CT of the brain without contrast showed no acute intracranial abnormality with fluid with aerosolized secretions in the right sphenoid and maxillary sinuses which may represent sinusitis in the proper clinical setting. Patient was given 1 L of LR in the ED. He also had a small laceration above the left eyebrow for which Steri-Strips were placed and the bleeding resolved. Patient be transferred to the care of [facility] staff for further management of their failure to thrive. Hospital course Patient admitted to medical floors for further management of generalized weakness, hyponatremia, failure to thrive, altered mental status.. Patient was seen by the bedside this morning. Patient is alert and awake, not confused and answering all questions appropriately. Patient denies any nausea or vomiting. Reports feeling better and notin acute distress. Patient presenting with low sodium levels, 126. Patient received IV fluids upon presentation, sodium level subsequently improved to 132 on the day of discharge. Patient overall feeling better. Has history of tonsil cancer, completed chemotherapy, radiation. Patient tolerates full liquid dietand is on tube feeding diet at home. Patient had DEBLOCKER evaluation here in the hospital, recommending to continue full liquid diet. Will get PT evaluation prior to DC. Patient will need a repeat BMP in a week to check sodium level.Patient is stable for discharge today. Recommend outpatient PCP follow-up for transition of care. Total time spent 35 minutes doing chart review, interviewing patient, gathering information, performing physical exam, formulating plan, explaining management plan to patient, , coordinating care with RN, documentation and placing orders. This dictation was performed using voice recognition software. Word substitution may have occurred and may have gone unnoticed and uncorrected * Mara Jordan RN - 07/08/2024 12:45 PM EST 07/08/24 1242 Initial Transition Plan Initial Transition Plan Home Discharge Planning Living Arrangements Spouse/significant other Type of Residence Private residence Assistive Devices None (has gtube and tube feeds all set up can't remember company) Support Systems Spouse/significant other Medication Coverage Has Med Coverage Under Insurance Plan Yes Medication Affordability No concerns related to payment for meds Informed Choice Informed Choice Given? Yes Transportation Transportation at discharge Family What day is the transport expected? 07/08/24 What time is the transport expected? 1400 Final Discharge Disposition Home or Self Care Patient discharging home no services. providing transportation * Oralia Wilson, PT - 07/08/2024 12:40 PM EST [facility] ACUTE CARE PT EVALUATION Wood Rios 1955 Ambulation: Walking Assistance: Close supervision Device: No device Distance Ambulated (ft): (160ft + 140ft with rest. Supervision to INdep in the hallway. PT pushed the IV pole while he walked.) PLOF: Level of [place]: Independent with mobility and functional transfers Lives With: Spouse Receives Help From: Family Home Adaptive Equipment: None Home Living Comments: one level home wiht 3 steps to enter with rail DME Needs: none PT Discharge Recommendation: Home independent Diagnosis: ICD-10-CM ICD-9-CM 1. Hyponatremia E87.1 276.1 Basic metabolic panel 2. Generalized weakness R53.1 780.79 Past Medical History: Diagnosis Date CAD (coronary artery disease) Cancer (CMS/HCC) Gallstone pancreatitis 07/07/2024 History of myocardial infarction 07/07/2024 Hypertension Past Surgical History: Procedure Laterality Date CHOLECYSTECTOMY PT Received On: 07/08/2024 SUBJECTIVE I fell at home, I think I rolled out of bed Pt reports no hx of falls during gait PT Time Calculation: PT Time Calculation PT Start Time: 1240 PT Stop Time: 1310 PT Time Calculation (min): 30 min OBJECTIVE Precautions: Precautions Swallow Precautions: Modified Diet Cognition: Cognition Overall Cognitive Status: Within Functional Limits Arousal/Alertness: Appropriate responses to stimuli Orientation Level: Oriented X4 Following Commands: Follows all commands and directions without difficulty Safety Judgment: Good awareness of safety precautions Vital Signs: Oxygen Therapy Oxygen Therapy: None (Room air) Pain Assessment: Pain Assessment: No/denies pain Pain Score: 0 - No pain Home Living: Home Living Lives With: Spouse Home Adaptive Equipment: None Home Living Comments: one level home wiht 3 steps to enter with rail Prior Function: Prior Function Level of [place]: Independent with mobility and functional transfers Ambulation Status: Household ambulator, Community ambulator Receives Help From: Family Indoor Mobility Assistance: Independent Prior Device Use: No prior device use Functional Assessments: Dynamic Standing Balance Dynamic Standing-Level of Assistance: Close supervision Dynamic Standing-Balance: Ambulation Dynamic Standing-Comments: fair+ to good without AD Bed Mobility Sitting to Lying Assistance: Independent Lying to Sitting Assistance: Independent Transfers Sit to Stand Assistance: Supervision Ambulation Walking Assistance: Close supervision Device: No device Distance Ambulated (ft): (160ft + 140ft with rest. Supervision to INdep in the hallway. PT pushed the IV pole while he walked.) Comments: steady gait Extremity Assessments: RLE Assessment RLE Assessment: Within Functional Limits LLE Assessment LLE Assessment: Within Functional Limits Education: Education Documentation Mobility Training, taught by Oralia Wilson, PT at 07/08/2024 12:40 PM. Learner: Patient Readiness: Acceptance Method: Explanation Response: Verbalizes Understanding Comment: supervision on entrance steps. Education Comments No comments found. ASSESSMENT Pt ambulated safely without AD therefore safe to go home. PT Assessment: PT Assessment PT Assessment Results: At baseline Evaluation/Treatment Tolerance: Patient tolerated treatment well Medical Staff Made Aware: Yes Comments: nurse PLAN PT Plan: During acute care stay: PT Plan: No skilled PT PT Discharge Recommendations: Home independent PT Evaluation Time Entry G RHB Caroline PT Evaluation Time Entry PT Evaluation (Low) Time Entry: 30 * Asia Gutierrez RD - 07/08/2024 12:09 PM EST Nutrition Brief Note Consulted to see patient for TF- discharge orders entered and pt leaving after PT sees him. Pt admitted last night for altered mental status, fall. History of tonsillar cancer status post chemo-radiation. Has G tube for feedings. Takes 1 carton Isosource 1.5 (250 mL) every 2 hours (6x/day). Has been providing boluses to himself in room. Seen by DEBLOCKER who recommended full liquids, which is mostly what hetakes at home. Started on normal saline at 100 mL/hr for hyponatremia. Provides: 1500 mL formula, 2250 kcal (29 kcal/kg), 102 gm protein (1.32 g/kg), 1140 mL free water. Energy needs: Calories: 4718-3143 kcal (25-30 kcal/kg actual weight) Protein: 92 g (1.2 g/kg actual weight) Fluid: 0960-2900 mL (25-30 mL/kg actual weight) While IV fluids running, recommend patency flushes of 30 mL h2o before and after bolus. Once IV fluids stopped, would recommend water flushes of 75 mL water before and after each bolus. This will provide 2040 mL free water (26 mL/kg). Adjust water flushes based on PO intake. Dietary Orders (From admission, onward) Start Ordered 07/07/242022 Adult diet [facility]; Modified Consistency Options for Liquidsand Solids, Diabetic; Full Liquid; 75 gm carb/Meal; Self- Select Meals Diet effective now Question Answer Comment Location [facility] Diet Type (req) Modified Consistency Options for Liquids and Solids Diet Type (req) Diabetic Modified Consistency Options for Liquids and Solids Full Liquid Diabetic 75 gm carb/Meal Is the patient able to participate in meal ordering? Self-Select Meals 07/07/242021 * Briseyda Cochran, RYLEE - 07/08/2024 9:13 AM EST Images from the original note were not included. Speech Language Pathology [facility] DEBLOCKER BEDSIDE SWALLOW EVALUATION NAME: Wood Rios DATE OF : 1955 ROOM: [address] [place] [address] DEBLOCKER Received On: 07/08/24 Thermit Welding Machine Operator Required: No TIME IN: 08 TIME OUT: 829 TOTAL TIME: 25 min MISSED TIME REASON: FAMILY/CAREGIVER PRESENT: No SUBJECTIVE SUBJECTIVE: Orders acknowledged/received, chart reviewed, and patient cleared by TATUM Hernández for swallow evaluation. Patient was alert and sitting upright in bed on room air w/ full liquid breakfast tray. Pt reported difficulty swallowing secondary to throat cancer but has an OP DEBLOCKER who has performed an MBS and given swallowing strategies. Pt currently gets tube feedings and reported full liquid diet is the best diet for him. RN reported that he has been tolerating diet without difficulty and reported that he takes his meds whole. Principal Problem: Failure to thrive in adult Date Noted: 07/07/2024 Resolved Problems: * No resolved hospital problems. * Hyponatremia [E87.1] Failure to thrive in adult [R62.7] Generalized weakness [R53.1] No admission procedures for hospital encounter. PAST MEDICAL HISTORY: Past Medical History: Diagnosis Date CAD (coronary artery disease) Cancer (CMS/HCC) Gallstone pancreatitis 07/07/2024 History of myocardial infarction 07/07/2024 Hypertension PAST SURGICAL HISTORY: Past Surgical History: Procedure Laterality Date CHOLECYSTECTOMY PRIOR LEVEL OF FUNCTIONING: Pt reported that he has had difficulty w/ swallowing since his throat cancer diagnosis. Pt reported that an OP DEBLOCKER performed an MBS at [facility] which showed incomplete epiglottic inversion and recommended double swallow and supraglottic swallow during meals. Pt reported he does the Evelyn and Ana maneuvers and tongue exercises to strengthen the muscles. He reported he has 2 more sessions and then they will repeat the MBS. Pt reported that he gets tube feedings and does mostly liquids, like soup and yogurt, via PO. Pt reported that he preferred a full liquid diet. IMAGING RESULTS: MRI Brain No results found for this or any previous visit. CT Head Results for orders placed during the hospital encounter of 07/07/24 CT Head wo Contrast Narrative PROCEDURE: HEAD CT INDICATION: Dizziness TECHNIQUE: CT of the head without intravenous contrast. Multiplanar reformats. The examination was performed utilizing dose reduction techniques. Total DLP comparison 70 COMPARISON: No priors available. FINDINGS: No acute territorial infarct, mass effect, or intracranial hemorrhage. Mild scattered periventricular and subcortical white matter hypodensities are most likely related to chronic small vessel ischemic change. Ventricles, sulci, and cisterns are normal in size and configuration. No hydrocephalus or volume loss. Fluid with aerosolized secretions in the right sphenoid and maxillary sinuses. Remainder the sinuses and mastoid air cells are clear. No scalp hematoma or skull fracture. Impression No acute intracranial abnormality. Fluid with aerosolized secretions in the right sphenoid and maxillary sinuses may represent sinusitis in the proper clinical setting -------- FINAL REPORT -------- Dictated By: HUGH BALDERAS Dictated Date: 07/07/2024 14:59 ET Assigned Physician: HUGH BALDERAS Reviewed and Electronically Signed By: HUGH BALDERAS Signed Date: 07/07/2024 15:01 ET Workstation ID: [id number] Transcribed By: Self Edit Transcribed Date: 07/07/2024 14:59 ET Chest Portable No results found for this or any previous visit. Chest 2 View No results found for this or any previous visit. Chest CT No results found for this or any previous visit. NIH Stroke Scale: ALLERGIES: Allergies Allergen Reactions Iodinated Contrast Media OBJECTIVE OXYGEN THERAPY: Oxygen Therapy: None (Room air) DYSPHAGIA SYMPTOMS REPORTED BY PATIENT: Other: difficulty w/ swallowing secondary to throat cancer NPO: no CURRENT DIET TEXTURES ORDERED: Full Liquid Diet IDDSI Level 0 Thin FEEDING METHOD: Independent MENTAL STATUS: Alert , Responsive, and Cooperative SWALLOW BASELINE ASSESSMENT: Respiratory Status: Room air History of Intubation: No Behavior/Cognition: Alert, Cooperative, Pleasant mood Dentition: Adequate Patient Positioning: Upright in bed Baseline Vocal Quality: Within Functional Limits Volitional Cough: Strong MOTOR SPEECH: Labial ROM: Within Functional Limits Labial Symmetry: Within Functional Limits Lingual Appearance: Dry Lingual ROM: Other (Comment) (reduced) Lingual Symmetry: Within Functional Limits Facial ROM: Within Functional Limits Facial Symmetry: Within Functional Limits Velum: Within Functional Limits Mandible: Within Functional Limits Vocal Quality: Within Functional Limits Intelligibility: Intelligible 100% CONSISTENCIES ASSESSED: Yes Thin Presentation: Cup, Straw, Self Fed Oral: Within functional limits Pharyngeal: Multiple swallows, Throat clearing - immediate, Other (Comment) (pt did double swallow and throat clear after meals per DEBLOCKER's recommendations from MBS at [facility]) Amount: x1 cup of water Comments: Pt was indep. using double swallow and supraglottic swallow during meal. Pt reported thathe had an MBS done, couldn't not recall date, at [facility] and he reported that he has difficulty w/ closing his epiglottis. Pt reported he practices the Mdenelsohn and Ana maneuvers to strengthen his muscles based on recommendations from DEBLOCKER. He reported he has two more sessions w/ DEBLOCKER and then they will do a repeat MBS. Puree Presentation: Self Fed, Spoon Oral: Within functional limits Pharyngeal: Multiple swallows, Throat clearing - immediate (per DEBLOCKER recommendations following swallowing strategies) Comments: Pt was indep. using double swallow and supraglottic swallow during meal. ASSESSMENT/RECOMMENDATIONS ASPIRATION RISK: Diet Solids Recommendation: No solids, see liquids Diet Liquids Recommendation: Thin liquids Liquid Administration Via: Cup, Straw Compensatory Swallowing Strategies: Upright as possible for all oral intake, Remain upright for 20-30 minutes after meals, Alternate solids and liquids, Swallow 2 times per bite/sip, Small bites/sips, Eat/feed slowly, Super glottic swallow maneuver, Ana maneuver, Slow rate of intake Recommended Medication Route: PO Recommended Medication Administration: (per pt's preference) DEBLOCKER ASSESSMENT: DEBLOCKER Assessment Results: Swallowing impairments Dysphagia Diagnosis: (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) Evaluation/Treatment Tolerance: Patient tolerated treatment well Medical Staff Made Aware: Yes Comments: Message sent to MD and RN CURRENT DIET: Dietary Orders (From admission, onward) Start Ordered 07/07/242022 Adult diet [facility]; Modified Consistency Options for Liquidsand Solids, Diabetic; Full Liquid; 75 gm carb/Meal; Self- Select Meals Diet effective now Question Answer Comment Location [facility] Diet Type (req) Modified Consistency Options for Liquids and Solids Diet Type (req) Diabetic Modified Consistency Options for Liquids and Solids Full Liquid Diabetic 75 gm carb/Meal Is the patient able to participate in meal ordering? Self-Select Meals 07/07/242021 PLAN OF CARE DEBLOCKER PLAN Treatment/Interventions: Cognitive linguistic functioning DEBLOCKER Plan: No skilled DEBLOCKER No Skilled DEBLOCKER: Independent with swallowing DEBLOCKER - Evaluation Status: Complete DEBLOCKER Discharge Recommendations: Other (Comment) (continue w/ OP DEBLOCKER) Diet Recommendations: Full liquid diet DISCHARGE RECOMMENDATIONS Ongoing Skilled Speech-Language Pathology (DEBLOCKER) services at next level of care. EDUCATION Education Documentation Modified Diet Training, taught by BriseydaRYLEE Cabrera at 07/08/2024 9:12 AM. Learner: Patient Readiness: Acceptance Method: Explanation Response: Verbalizes Understanding Comment: Pt was provided education about changes to swallow w/ throat cancer, importance of use of strategies and general swallowing strategies. Teach proper swallowing techniques, taught by RYLEE Yanes at 07/08/2024 9:12 AM. Learner: Patient Readiness: Acceptance Method: Explanation Response: Verbalizes Understanding Comment: Pt was provided education about changes to swallow w/ throat cancer, importance of use of strategies and general swallowing strategies. Education Comments No comments found. GOALS Encounter Problems Encounter Problems (Active) There are no active problems. Encounter Problems (Resolved) There are no resolved problems. Associated attestation - Magali Jackson SLP - 07/08/2024 6:35 PM EST I attest that I, Tali Jackson M.S.,[facility], was physically involved in the ongoing assessment, decision making, and interventions provided during today's patient care session. I have reviewed all documentation for today's 07/08/24, entered by Speech Therapy Fellow, Briseyda Cochran, and further attest that it is an accurate clinical record of today's encounter, including accurate and appropriate charges. * Dolores Parrish RN - 07/08/2024 6:05 AM EST Goals: Problem: Falls: Fall Risk (Adult IP BH) Goal: (Goal) Patient will experience maximum safety and reduce risk for falls. Outcome: Progressing Identify possible barriers to meeting goals/advancing plan of care: Stability of the patient: Moderately Stable - Low risk of patient condition declining or worsening End of Shift Summary: Patient is alert. No complain of pain. Bed is in low position, bed alarm is on, call elizabeth is within reach. Will continue to monitor. * Savannah Goel RN - 07/07/2024 8:30 PM EST ED RN HANDOFF (All Richter Below Must Be Completed) Reason/Diagnosis for Admission: hyponatremia, generalized weakness Type of Admission: Medsurg Already in a Hospital Bed: Yes Room Considerations/Precautions (ex: fever, diarrhea, or any infectious concerns): No Poultry Tender: No If YES, Cardiac Rhythm: n/a Reason for Poultry Tender: n/a VS: Visit Vitals BP 136/78 (BP Location: Left arm, Patient Position: Lying) Pulse (S) 84 Comment: nsr Temp 36.7 ??C (98 ??F) (Oral) Resp 16 Ht 1.76 m (69.29 ) Wt 78.9 kg (174 lb) SpO2 96% BMI 25.48 kg/m?? Smoking Status Never BSA 1.95 m?? Current Mental Status: A/O x 4 Current Ambulation Status: standby assist IV Access: Yes Field IV present: No Hx of Violence: No Fall Risk: Yes Yellow Bracelet Applied Yes Yellow Socks Applied Yes Patient Belongings inventoried and BL completed: Yes Patient belongings stored in the security closet: No Patient Medications stored in Pharmacy: No ED Summary of Care: Pt with fall at home [employer], found confused by family. Pt with small lac to L eyebrow. Pt head CT performed but read not available at this time. Pt with baseline tremors, hx of oropharyngeal CA and forgetfulness since chemo though is aaox4 with directed communication. Pt found to be hyponatremic, rec'd 1L LR, now with maintenance NS infusing through port. Submitted by and Phone Extension: [place] [phone] * Elaine Chu RN - 07/07/2024 4:50 PM EST No need to straight cath pt was able to provide clean catch sample on his own. Ua sent. Plan of care ongoing. Pt placed in a hospital bed, lowered to floor and locked, with alarm on and 3 side rails up, call elizabeth in reach. * Carmen Combs RN - 07/07/2024 1:40 PM EST Pt presents from home, reported fall from bed last night, found on ground by family- family found pt on ground shaking . Pt unable to recall events, unknown head strike. Denies blood thinners. Referred by PCP, requesting CT Scan. Alert and oriented x 3, baseline tremor per family. * DANNY Maki - 07/07/2024 1:40 PM EST Emergency Medicine Note Patient Name: Wood Rios Initial Evaluation: 07/07/2024 : 1955 Patient's PCP: Min Mckenzie MD Emergency Physician: DANNY Maki History of Present Illness Chief Complaint: Chief Complaint Patient presents with Head Injury HPI: This is a 68-year-old male with a past medical history significant for coronary artery disease, hypertension, cancer of the throat status post radiation and chemotherapy, presenting today with increased confusion, tremulousness, and a fall at around 4 AM that was unwitnessed where he struck the left forehead just at the eyebrow most likely on the nightstand, unclear loss of consciousness though patient's heard the fall and immediately came to the room where patient was alert though very tremulous and confused. Patient has been increasingly confused over the past couple months difficulty remembering things. He is weaker than usual. Patient himself reports that he feels fine only reporting right sided occipital headache. It is reported he had a small laceration to the left eyebrowthat was bleeding initially, Steri-Strip was applied and bleeding has since stopped. Patient deniesany dizziness, lightheadedness, chest pain, shortness of breath, palpitations, cough, congestion, abdominal pain, nausea, vomiting, diarrhea, bowel or bladder abnormalities, lower extremity pain or swelling. He does report recent viral syndrome 2 weeks ago that he has since recovered from. ROS: I have performed a ROS with the pertinent positives and negatives documented in the history ofpresent illness. Previous History Past Medical History: Diagnosis Date CAD (coronary artery disease) Cancer (CMS/HCC) Hypertension Past Surgical History: Procedure Laterality Date CHOLECYSTECTOMY Social History Tobacco Use Smoking status: Never Smokeless tobacco: Never Substance Use Topics Alcohol use: Yes Drug use: No Family History Problem Relation Name Age of Onset Heart attack Mother Heart attack Brother is allergic to iodinated contrast media. No current facility-administered medications on file prior to encounter. No current outpatient medications on file prior to encounter. Physical Exam ED Triage Vitals [07/07/24 1346] Temp Heart Rate Resp BP 36.4 ??C (97.5 ??F) 103 16 132/82 SpO2 Temp src Heart Rate Source Patient Position 94 % -- -- -- BP Location FiO2 (%) -- -- GENERAL: Nontoxic, no acute distress. SKIN: Appropriate color for ethnicity, warm, dry. No rashes. HEENT: No stridor, no lymphadenopathy. Approximately 1 cm superficial laceration to the left forehead and eyebrow without active bleeding, well-approximated unable, no active bleeding, less than 1 mmin depth. Normocephalic. NECK: Soft, supple, full ROM, Midline structures, nontender, no step-off, no deformity. Midline cervical spine tenderness to palpation. CHEST: Heart regular rate and rhythm, no rubs, no gallops or murmurs. PULMONARY: Clear to auscultation bilaterally without any adventitious lung sounds. No increased work of breathing. ABDOMINAL: Soft, nondistended nontender with positive bowel sounds. No rebound, no guarding. MUSCULOSKELETAL: Normal tone full range of motion, 5 x 5 motor. NEURO: A&O to self and place., CN II-XII intact, sensation grossly intact, EOMI, DTRs intact, no facial droop, no aphasia, no slurred speech, no extremity drift. PERRL. Names objects appropriately, follows simple commands. Tremulous with finger-nose testing bilaterally. PSYCHIATRIC: Normal affect, fluid speech, good eye contact and appropriate demeanor. Results Labs Reviewed COMPREHENSIVE METABOLIC PANEL - Abnormal Result Value Sodium 126 (*) Potassium 4.3 Chloride 95 (*) CO2 26 Anion Gap 5 Glucose 133 (*) BUN 15 Creatinine 0.58 (*) eGFR 108 BUN/Creatinine Ratio 25.9 Calcium 8.7 AST (SGOT) 29 ALT (SGPT) 65 (*) Alkaline Phosphatase 107 Total Protein 6.3 Albumin 3.2 Total Bilirubin 0.7 CBC WITH AUTO DIFFERENTIAL - Abnormal WBC 6.5 RBC 3.90 (*) Hemoglobin 12.5 (*) Hematocrit 36.3 (*) MCV 92.6 MCH 31.9 MCHC 34.4 RDW 13.7 Platelets 232 MPV 8.8 NRBC 0.0 NRBC Absolute 0.00 Neutrophils Relative 69.2 Lymphocytes Relative 14.9 Monocytes Relative 14.5 Eosinophils Relative 0.6 Basophils Relative 0.3 Immature Granulocytes Relative 0.5 Neutrophils Absolute 4.50 Lymphocytes Absolute 0.97 (*) Monocytes Absolute 0.94 Eosinophils Absolute 0.04 Basophils Absolute 0.02 Immature Granulocytes Absolute 0.03 URINALYSIS WITH REFLEX MICROSCOPIC AND CULTURE - Abnormal Specific Dixon Urine 1.013 pH, Urine 7.5 Leukocytes, Urine Trace (*) Nitrite, Urine Negative Protein, Urine Negative Glucose, Urine Negative Ketones, Urine Negative Urobilinogen, Urine 2.0 (*) Bilirubin, Urine Negative Blood, Urine Negative RBC, Urine 0.9 WBC, Urine 3.7 Squamous Epithelial, Urine 29 Bacteria, Urine Negative Hyaline Casts, Urine 0.4 RESPIRATORY VIRUS PANEL MOLECULAR STUDY - Normal Adenovirus Detection by PCR Not Detected Influenza A PCR Not Detected Influenza B PCR Not Detected Coronavirus 229E Not Detected Coronavirus HKU1 Not Detected Coronavirus OC43 Not Detected Coronavirus NL63 Not Detected Parainfluenza Virus 1 Not Detected Parainfluenza Virus 2 Not Detected Parainfluenza Virus 3 Not Detected Parainfluenza Virus 4 Not Detected RSV PCR Not Detected Human Metapneumovirus A and B Not Detected Rhinovirus/Enterovirus Not Detected Bordetella pertussis Not Detected Bordetella parapertussis Not Detected Mycoplasma pneumo by PCR Not Detected Chlamydia pneumoniae Not Detected SARS COV-2 Not Detected Narrative: Testing was performed using the [employer]text Respiratory Pathogen PCR Assay. All results must [...] that are below the limit of detection. TROPONIN I HIGH SENSITIVITY - Normal High Sensitivity Troponin I 4 Narrative: High levels of biotin in samples may falsely decrease hsTroponin values. Use caution when interpreting hsTroponin results in patients taking biotin who exhibit renal impairment (eGFR <60) or in patients taking more than 20 mg/day of biotin. CREATINE KINASE - Normal Total CK 43 CULTURE URINE CBC AND DIFFERENTIAL Narrative: The following orders were created for panel order CBC and differential. Procedure Abnormality Status --------- ------ CBC auto differential[[id number]] Abnormal Final result Please view results for these tests on the individual orders. URINALYSIS WITH REFLEX MICROSCOPIC AND CULTURE Narrative: The following orders were created for panel order Urinalysis with reflex microscopic and culture. Procedure Abnormality Status --------- ------ Urinalysis with reflex ...[[id number]] Abnormal Final result Contreras urine culture tube[[id number]] Final result Please view results for these tests on the individual orders. Abnormal Labs Reviewed COMPREHENSIVE METABOLIC PANEL - Abnormal; Notable for the following components: Result Value Sodium 126 (*) Chloride 95 (*) Glucose 133 (*) Creatinine 0.58 (*) ALT (SGPT) 65 (*) All other components within normal limits CBC WITH AUTO DIFFERENTIAL - Abnormal; Notable for the following components: RBC 3.90 (*) Hemoglobin 12.5 (*) Hematocrit 36.3 (*) Lymphocytes Absolute 0.97 (*) All other components within normal limits URINALYSIS WITH REFLEX MICROSCOPIC AND CULTURE - Abnormal; Notable for the following components: Leukocytes, Urine Trace (*) Urobilinogen, Urine 2.0 (*) All other components within normal limits XR Chest 2 Views (Results Pending) CT Head wo Contrast (Results Pending) I have discussed the incidental/abnormal imaging and/or lab abnormalities with the patient and haveinstructed them the need for further evaluation and workup with their primary care doctor. I have provided the patient with a paper copy of the abnormality. The laboratory results, imaging results and other diagnostic exam results were reviewed in the EMR. EKG Interpretation Critical Care Time None Differential Diagnosis ICH Skull fracture Cervical spine injury Electrolyte derangement UTI ACS Pneumonia Infectious process ? Medical Decision Making Medications lactated Ringer's bolus 1,000 mL (0 mL intravenous Stopped 07/07/24 1553) 2-octyl cyanoacrylate liquid 1 Application (1 Application topical (top) Given 07/07/24 1628) ED Course as of 07/07/242002Jul 07, 2024 1515 Sodium(!): 126 [KV] 1522 Patient seen and evaluated, previously evaluated by my attending physician Dr. Kruger who has placed initial orders for the patient. Presents with increasing weakness and confusion over the past 2 months, a fall this morning at 4 AM that was unwitnessed with head strike. CT head and cervicalspine obtained, lab workup, chest x-ray, EKG. He is receiving lactated Ringer's. He does have a sodium of 126. Troponin of 4. Dermabond was applied to small superficial laceration over the left eyebrow. [YB] 1619 Sodium(!): 126 [KV] 1950 Other than hyponatremia, workup has been unremarkable, CT head has not been read yet. Will admit for symptomatic hyponatremia, I did call radiology who advises me that the radiologist dictated the note but did not sign it so it is unavailable at this time, they are working on a solution to this. [YB] ED Course User Index [KV] Julio Kruger MD [YB] DANNY Maki Clinical Impressions as of 07/07/242002 Hyponatremia Generalized weakness Procedures Procedures Diagnosis 1. Hyponatremia 2. Generalized weakness Disposition Admit to Inpatient ED Prescriptions None Physician Attestation This is a split/shared visit with Julio Kruger MD. I personally performed the medical decision making (MDM) for the care of this patient on 07/07/24 as documented below Evaluated with shakiness worse in the past 2 weeks going on for the past 2 months in the setting ofbeing treated for oropharyngeal cancer, has had chemotherapy, radiation therapy, family also reports some degree of mental status changes, blood work revealed hyponatremia, he is able to eat though he is has not been eating has been relying more on G-tube for hydration, sodium levels 126 will give fluids, he is did have a fall both a CT of the head, otherwise anticipating admission DANNY Maki 07/07/24 8:03 PM EST DANNY Maki PA 07/07/24 1427 DANNY Maki 07/07/24 1522 Julio Kruger MD 07/07/24 1621 Julio Kruger MD 07/07/24 1907 DANNY Maki 07/07/242002 documented in this encounter H&P Notes * DANNY Holt - 07/07/2024 10:52 PM EST Images from the original note were not included. SAM HISTORY AND PHYSICAL Please contact author [DANNY Holt] via IndaBox/SyndicateRoom. Patient: Wood Rios Admission Date/Time: 07/07/2024 1:55 PM : 1955 [68 y.o.] Patient's PCP: Min Mckenzie MD Attending Provider: Robbi Currie MD CHIEF COMPLAINT Weakness, fall, confusion HISTORY OF PRESENT ILLNESS Mr. Rios is a 68-year-old male with PMH tonsil cancer ongoing chemotherapy and radiation, hyperlipidemia, hypertension, depression, anxiety, GERD, CAD amongst others seen today for complaint of weakness. Patient reports that he fell yesterday when getting out of bed and hit his head. He struck his forehead on the eyebrow possibly on his nightstand. He is unsure if he lost consciousness. His heard the fall and found him on the ground tremulous and confused. He reportedly has been more confused over the last couple of months and has had difficulty with remembering things. He only reported a headache in the ED earlier today which is now resolved. He states that he had a cold 2 weeks ago that he is recovering from and still has some sinus congestion. He denies any dizziness or lightheadedness, chest pain, shortness of breath, productive cough, nausea, vomiting, abdominal pain, diarrhea, leg swelling. Vitals are as follows: 36.4, heart rate of 103, respiratory rate of 16, blood pressure 132/82 and pulse ox of 94% on room air. Labs are notable for sodium of 126, creatinine of 0.58, troponin of 4, creatinine kinase of 43, hemoglobin of 12.5, hematocrit of 36.3, respiratory panel negative, UA unremarkable. CT of the brain without contrast showed no acute intracranial abnormality with fluid with aerosolized secretions in the right sphenoid and maxillary sinuses which may represent sinusitis in the proper clinical setting. Patient was given 1 L of LR in the ED. He also had a small laceration above the left eyebrow for which Steri-Strips were placed and the bleeding resolved. Patient be transferred to the care of [place] staff for further management of their failure to thrive. Review of Systems Review of Systems 10 point ROS negative as otherwise stated in the HPI MEDICAL HISTORY Past Medical History Past Medical History: Diagnosis Date ??? CAD (coronary artery disease) ??? Cancer (CMS/HCC) ??? Gallstone pancreatitis 07/07/2024 ??? History of myocardial infarction 07/07/2024 ??? Hypertension Past Surgical History Past Surgical History: Procedure Laterality Date ??? CHOLECYSTECTOMY Social History reports that he has never smoked. He has never used smokeless tobacco. He reports current alcohol use. He reports that he does not use drugs. Family History family history includes Heart attack in his brother and mother. Allergies is allergic to iodinated contrast media. Home Medications No current facility-administered medications on file prior to encounter. Current Outpatient Medications on File Prior to Encounter Medication Sig Dispense Refill ??? atorvastatin (LIPITOR) 40 mg tablet Take 1 tablet (40 mg total) by mouth at bedtime. ??? buPROPion XL (WELLBUTRIN XL) 300 mg 24 hr tablet Take 1 tablet (300 mg total) by mouth 1 (one) time each day. ??? FLUoxetine (PROzac) 20 mg capsule Take 1 capsule (20 mg total) by mouth 1 (one) time each day. ??? metoprolol succinate (TOPROL-XL) 50 mg 24 hr tablet Take 1 tablet (50 mg total) by mouth 1 (one) time each day. ??? pantoprazole (PROTONIX) 40 mg EC tablet Take 1 tablet (40 mg total) by mouth 1 (one) time each day. OBJECTIVE Vitals Visit Vitals BP 134/73 (BP Location: Left arm) Pulse 94 Temp 36.9 ??C (98.4 ??F) (Oral) Resp 18 Temp (24hrs), Av.7 ??C (98 ??F), Min:36.4 ??C (97.5 ??F), Max:36.9 ??C (98.4 ??F) Body mass index is 25.19 kg/m??. No results found for: PTWT , PTHT Physical Examination Physical Exam General: Older male sitting upright in the stretcher in no acute distress, calm Skin: Appropriate tone for ethnicity, warm, dry, no rashes or wounds HEENT: normocephalic, atraumatic, sclera nonicteric, EOMI, JULISSA, tongue protrudes midline, dry mucous membranes, uvula midline, Pulmonary: Lungs clear to auscultation in all lung richter bilaterally. No wheezes railes or rhonchiappreciated, no respiratory distress, no accessory muscle use. Cardiac: S1 and S2 appreciated, no murmurs, rubs or gallops, no peripheral edema Abdomen: Soft, non-tender, nondistended, no guarding or rebound tenderness appreciated. Bowel sounds normoactive. MSK: Full range of motion in upper and lower extremities with strength 5/5 and equal bilaterally flexion, plantarflexion, handgrip strength. Neuro: Alert and oriented x4 person place time and year. Cranial nerves 2-12 intact. No focal neurological deficits appreciated. No facial droop. tremulous with finger to nose testing, intentional tremor noted Psych: Normal affect. ECG: Was ECG Performed? Yes . Sinus Rhythm? Yes. Signs of acute ischemia? No Further Interpretation: 99bpm NSR LAB RESULTS (most recent) HEMATOLOGY Lab Results Component Value Date WBC 6.5 07/07/2024 HGB 12.5 (L) 07/07/2024 HCT 36.3 (L) 07/07/2024 MCV 92.6 07/07/2024 PLT 232 07/07/2024 CHEMISTRY Lab Results Component Value Date GLUCOSE 128 (H) 07/08/2024 NA 130 (L) 07/08/2024 K 3.9 07/08/2024 CO2 28 07/08/2024 CL 97 07/08/2024 BUN 12 07/08/2024 CREATININE 0.59 (L) 07/08/2024 EGFR 107 07/08/2024 CALCIUM 8.2 (L) 07/08/2024 ANIONGAP 5 07/08/[address] Head wo Contrast Final Result No acute intracranial abnormality. Fluid with aerosolized secretions in the right sphenoid and maxillary sinuses may represent sinusitis in the proper clinical setting -------- FINAL REPORT -------- Dictated By: HUGH BALDERAS Dictated Date: 07/07/2024 14:59 ET Assigned Physician: HUGH BALDERAS Reviewed and Electronically Signed By: HUGH BALDERAS Signed Date: 07/07/2024 15:01 ET Workstation ID: [id number] Transcribed By: Self Edit Transcribed Date: 07/07/2024 14:59 ET XR Chest 2 Views (Results Pending) ASSESSMENT & PLAN Failure to thrive Generalized weakness status post fall\ Altered mental status -Patient was seen today with complaint of weakness, fall, confusion -Vitals are stable -Labs are notable for sodium of 126, creatinine of 0.58, troponin of 4, creatinine kinase of 43, hemoglobin of 12.5, hematocrit of 36.3, respiratory panel negative, UA unremarkable. -CT of the brain without contrast showed no acute intracranial abnormality with fluid with aerosolized secretions in the right sphenoid and maxillary sinuses which may represent sinusitis in the proper clinical setting. Patient was given 1 L of LR in the ED. -He also had a small laceration above the left eyebrow for which Steri-Strips were placed and the bleeding resolved. -there is a history of confusion over the last few months, currently he is aox4 and able to providehistory with exception of details of his fall last night. He does have an intentional tremor. Pre previous notes his ENT was possibly ordering an MRI given his altered mentation. He does have mild anemia we will check a panel and B12. Will hold off on MRI at this time. -AM Labs Hyponatremia -Initial sodium 126 -Suspect hypovolemic hyponatremia, he has not been taking much po, (I don't think the SSRI is contributing at this time) -urine osmolality, serum osmolality, urine sodium ordered -Continue with IV fluid and trend BMP Tonsil cancer -status post chemotherapy and radiation, follows with Dr. Junior -has a gtube in place, can only tolerate liquids po Depression -Continue bupropion and fluoxetine Hypertension -He states he is no longer taking losartan or hydrochlorothiazide. In review of his pcp notes it was d/c in May. -Continue metoprolol Hyperlipidemia -Continue statin Admission checklist [x] Code status: Full Code - Default [x] VTE Prophylaxis: Lovenox subq [x] Diet order on admission: Dietary Orders (From admission, onward) Start Ordered 07/07/242022 Adult diet [facility]; [facility] Consistency Options for Liquidsand Solids, Diabetic; Full Liquid; 75 gm carb/Meal; Self- Select Meals Diet effective now Question Answer Comment Location [facility] Diet Type (req) Modified Consistency Options for Liquids and Solids Diet Type (req) Diabetic Modified Consistency Options for Liquids and Solids Full Liquid Diabetic 75 gm carb/Meal Is the patient able to participate in meal ordering? Self-Select Meals 07/07/242021 [x] Lines, tubes, drains: IV access [x] Medication reconciliation Health Care proxy with Phone number monse Posadas, Associated attestation - Robbi Currie MD - 07/08/2024 7:42 AM EST This is a split/shared visit with DANNY Holt. 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 After discussion with the ER provider, the patient will be admitted to the hospital. The patient has reportedly had worsening confusion and memory issues over the past few months. He has also been consuming less nutrition recently. Will check a B12 level to ensure that deficiency is not the source of his symptoms. His hyponatremia is likely hypovolemic hyponatremia and we will fluid resuscitate the patient following his sodium serially. Speech therapy evaluate the patient's swallowing to improve his oral intake. Will provide him with feedings through his G-tube. At this time is not clear why the patient has recently been deteriorating. Robbi Currei MD 07/08/24 7:37 AM EST documented in this encounter Plan of Treatment Upcoming Encounters Date Type Department Care Team (Late st Contact Info) Description 08/02/2024 12:30 PM EST Treatment [facility] Occupational Therapy [address] [phone] Leticia Lau P, OTR/L Scheduled Orders Name Type Priority Associated Diagnoses Orde r Schedule Basic metabolic panel Lab Routine Hyponatremia Expected: 07/15/2024, Expires: 07/08/2025 documented as of this encounter Procedures Procedure Name Priority Date/Time Associated Diagnosis Comments XR CHEST 2 VIEWS STAT 07/08/2024 8:44 [...] AND TIBC Add-On 07/08/2024 12:02 AM EST OSMOLALITY STAT 07/08/2024 12:02 AM EST FERRITIN Add-On 07/08/2024 12:02 AM EST BASIC METABOLIC PANEL Routine 07/08/2024 12:02 AM EST URINALYSIS WITH REFLEX MICROSCOPIC AND CULTURE STAT 07/07/2024 4:42 PM EST CONTRERAS URINE CULTURE TUBE STAT 07/07/2024 4:42 PM EST URINALYSIS WITH REFLEX MICROSCOPIC AND CULTURE STAT 07/07/2024 4:42 PM EST CULTURE URINE STAT 07/07/2024 4:42 PM EST RESPIRATORY VIRUS PANEL MOLECULAR STUDY STAT 07/07/2024 3:[address] HEAD WO CONTRAST STAT 07/07/2024 2:52 PM EST TROPONIN I HIGH SENSITIVITY STAT 07/07/2024 2:11 PM EST CBC WITH AUTO DIFFERENTIAL STAT 07/07/2024 2:11 PM EST CBC AND DIFFERENTIAL STAT 07/07/2024 2:11 PM EST CREATINE KINASE Add-On 07/07/2024 2:11 PM EST COMPREHENSIVE METABOLIC PANEL STAT 07/07/2024 2:11 PM EST ECG 12-LEAD STAT 07/07/2024 1:53 PM EST ECG ANNOTATED 07/07/2024 documented in this encounter Results * XR Chest 2 Views (07/08/2024 8:44 AM EST) Anatomical Region Laterality Modality Body Radiographic Ifeoma ging 07/08/2024 9:07 AM EST Impressions 07/08/2024 9:10 AM EST Elevated right hemidiaphragm, stable. Lungs are clear. New right central venous Port tip is in mid to distal SVC. -------- FINAL REPORT -------- Dictated By: Rishi Wright Dictated Date: 07/08/2024 09:07 ET Assigned Physician: Rishi Wright Reviewed and Electronically Signed By: Rishi Wright Signed Date: 07/08/2024 09:10 ET Workstation ID: [id number] Transcribed By: Self Edit Transcribed Date: 07/08/2024 09:07 ET Narrative 07/08/2024 9:10 AM EST EXAMINATION: Chest 2 views. CLINICAL INDICATIONS: Delirium, recent fall. History of CVA throughout obliqueness. COMPARISON: Chest 2 views 01/02/2022. FINDINGS: The lungs are hypoexpanded with moderate elevated right hemidiaphragm. Heart size and vascularity is normal. There is a right central venous port with its tip in mid to distal SVC. Mild indentation of right tracheal border is unchanged to previous study. Procedure Note Rishi Wright MD - 07/08/2024 EXAMINATION: Chest 2 views. CLINICAL INDICATIONS: Delirium, recent fall. History of CVA throughoutobliqueness. COMPARISON: Chest 2 views 01/02/2022. FINDINGS: The lungs are hypoexpanded with moderate elevated righthemidiaphragm. Heart size and vascularity is normal. There is a rightcentral venous port with its tip in mid to distal SVC. Mild indentation ofright tracheal border is unchanged to previous study. IMPRESSION: Elevated right hemidiaphragm, stable. Lungs are clear. New right central venous Port tip is in mid to distal SVC. -------- FINAL REPORT -------- Dictated By: Rishi Wright Dictated Date: 07/08/2024 09:07 ET Assigned Physician: Rishi Wright Reviewed and Electronically Signed By: Rishi Wright Signed Date: 07/08/2024 09:10 ET Workstation ID: [id number] Transcribed By: Self Edit Transcribed Date: 07/08/2024 09:07 ET Robbi Currie MD IMG XR PROCEDURES * Sodium, urine, random (07/08/2024 6:49 AM EST) Sodium, Ur 78 mmol/L LAB CHEMISTRY METHOD 07/08/2024 8:28 AM EST [facility] Urine Urine specimen from urethra / Unknown Non-blood Collection / Unknown 07/08/2024 6:49 AM EST 07/08/2024 7:03 AM EST Fidelina DELGADO LAB URINE ORDERABLES [facility] [address] [place] [address], * Osmolality, urine (07/08/2024 6:49 AM EST) Osmolality, Urine 367 300 - 1,300 mOsm/kg LAB CHEMISTRY METHOD 07/08/2024 7:53 AM EST [facility] Urine Urine specimen obtained by clean catch procedure / Unknown Non-blood Collection / Unknown 07/08/2024 6:49 AM EST 07/08/2024 7:03 AM EST Fidelina DELGADO LAB URINE ORDERABLES [facility] [address] [place] [address], * (ABNORMAL) CBC auto differential (07/08/2024 6:12 AM EST) WBC 4.8 4.8 - 10.8 K/mcL LAB HEMETOLOGY METHOD 07/08/2024 6:44 AM [facility] RBC 3.70(L) 4.50 - 5.50 M/mcL LAB HEMETOLOGY METHOD 07/08/2024 6:44 AM [facility] Hemoglobin 12.1(L) 13.5 - 17.5 g/dL LAB HEMETOLOGY METHOD 07/08/2024 6:44 AM [facility] Hematocrit 34.8(L) 42.0 - 54.0 % LAB HEMETOLOGY METHOD 07/08/2024 6:44 AM [facility] MCV 94.6 79.0 - 98.0 FL LAB HEMETOLOGY METHOD 07/08/2024 6:44 AM [facility] MCH 32.9(H) 27.0 - 32.0 pcg LAB HEMETOLOGY METHOD 07/08/2024 6:44 AM [facility] MCHC 34.8 32.0 - 37.0 g/dL LAB HEMETOLOGY METHOD 07/08/2024 6:44 AM [facility] RDW 13.6 11.0 - 15.0 % LAB HEMETOLOGY METHOD 07/08/2024 6:44 AM [facility] Platelets 161 130 - 400 K/mcL LAB HEMETOLOGY METHOD 07/08/2024 6:44 AM [facility] MPV 8.8 7.0 - 11.0 FL LAB HEMETOLOGY METHOD 07/08/2024 6:44 AM [facility] NRBC 0.0 <1.0 % LAB HEMETOLOGY METHOD 07/08/2024 6:44 AM [facility] NRBC Absolute 0.00 <0.10 K/mcL LAB HEMETOLOGY METHOD 07/08/2024 6:44 AM [facility] Neutrophils Relative 72.7 % LAB HEMETOLOGY METHOD 07/08/2024 6:44 AM [facility] Lymphocytes Relative 15.3 % LAB HEMETOLOGY METHOD 07/08/2024 6:44 AM [facility] Monocytes Relative 11.4 % LAB HEMETOLOGY METHOD 07/08/2024 6:44 AM [facility] Eosinophils Relative 0.0 % LAB HEMETOLOGY METHOD 07/08/2024 6:44 AM [facility] Basophils Relative 0.2 % LAB HEMETOLOGY METHOD 07/08/2024 6:44 AM [facility] Immature Granulocytes Relative 0.4 % LAB HEMETOLOGY METHOD 07/08/2024 6:44 AM [facility] Neutrophils Absolute 3.51 1.50 - 7.00 K/mcL LAB HEMETOLOGY METHOD 07/08/2024 6:44 AM [facility] Lymphocytes Absolute 0.74(L) 1.00 - 5.00 K/mcL LAB HEMETOLOGY METHOD 07/08/2024 6:44 AM [facility] Monocytes Absolute 0.55 0.20 - 1.00 K/mcL LAB HEMETOLOGY METHOD 07/08/2024 6:44 AM [facility] Eosinophils Absolute 0.00 0.00 - 0.50 K/mcL LAB HEMETOLOGY METHOD 07/08/2024 6:44 AM EST [facility] Basophils Absolute 0.01 0.00 - 0.20 K/mcL LAB HEMETOLOGY METHOD 07/08/2024 6:44 AM EST [facility] Immature Granulocytes Absolute 0.02 0.00 - 0.03 K/mcL LAB HEMETOLOGY METHOD 07/08/2024 6:44 AM EST [facility] Blood Venous blood specimen / Unknown Venipuncture / Unknown 07/08/2024 6:12 AM EST 07/08/2024 6:29 AM EST Robbi Currie MD LAB BLOOD ORDERABLE S [facility] [address] [place] [address], * (ABNORMAL) Basic metabolic panel (07/08/2024 6:12 AM EST) Sodium 132(L) 133 - 145 mmol/L LAB CHEMISTRY METHOD 07/08/2024 7:30 AM [facility] Potassium 3.9 3.5 - 5.5 mmol/L LAB CHEMISTRY METHOD 07/08/2024 7:30 AM [facility] Chloride 100 96 - 110 mmol/L LAB CHEMISTRY METHOD 07/08/2024 7:30 AM [facility] CO2 25 21 - 32 mmol/L LAB CHEMISTRY METHOD 07/08/2024 7:30 AM [facility] Anion Gap 7 3 - 11 LAB CHEMISTRY METHOD 07/08/2024 7:30 AM [facility] Glucose 81 70 - 100 mg/dL LAB CHEMISTRY METHOD 07/08/2024 7:30 AM [facility] BUN 9 5 - 25 mg/dL LAB CHEMISTRY METHOD 07/08/2024 7:30 AM [facility] Creatinine 0.53(L) 0.70 - 1.30 mg/dL LAB CHEMISTRY METHOD 07/08/2024 7:30 AM EST [facility] eGFR 111 >=60 mL/min/1. 73m2 LAB CHEMISTRY METHOD 07/08/2024 7:30 AM [facility] Comment:Calculation based on the??Chronic Kidney Disease Epidemiology Collaboration (CKD-EPI) equation refit??without adjustment for race. BUN/Creatinine Ratio 17.0 LAB CHEMISTRY METHOD 07/08/2024 7:30 AM [facility] Calcium 8.4(L) 8.5 - 10.5 mg/dL LAB CHEMISTRY METHOD 07/08/2024 7:30 AM [facility] Blood Venous blood specimen / Unknown Venipuncture / Unknown 07/08/2024 6:12 AM EST 07/08/2024 6:28 AM EST Robbi Currie MD LAB BLOOD ORDERABLE S Performing Organization Address City/[facility]/ZIP Co de Phone Number [facility] [address] [place] [address], [place] [phone] * (ABNORMAL) Vitamin B12 and folate (07/08/2024 12:02 AM EST) [facility] Vitamin B-12 1,178(H) 250 - 900 pcg/mL LAB CHEMISTRY METHOD 07/08/2024 3:58 AM EST [facility] Folate 18.1(H) 2.8 - 17.0 ng/ml LAB CHEMISTRY METHOD 07/08/2024 3:58 AM EST [facility] Blood Venous blood specimen / Unknown Venipuncture / Unknown 07/08/2024 12:02 AM EST 07/08/2024 12:45 AM EST Fidelina DELGADO LAB BLOOD ORDERABLES Performing Organization Address [facility]/ZIP Co de Phone Number [facility] [address] [place] [address], [place] [phone] * (ABNORMAL) Iron and TIBC (07/08/2024 12:02 AM EST) Iron 61 50 - 160 mcg/dL LAB CHEMISTRY METHOD 07/08/2024 3:16 AM EST [facility] TIBC 228(L) 250 - 450 mcg/dL LAB CHEMISTRY METHOD 07/08/2024 3:16 AM EST [facility] Iron Saturation 27 20 - 50 % LAB CHEMISTRY METHOD 07/08/2024 3:16 AM EST [facility] Blood Venous blood specimen / Unknown Venipuncture / Unknown 07/08/2024 12:02 AM EST 07/08/2024 12:45 AM EST Fidelina DELGADO LAB BLOOD ORDERABLES Performing Organization Address City/[facility]/ZIP Co de Phone Number [facility] [address] [place] [address], [place] [phone] * (ABNORMAL) Ferritin (07/08/2024 12:02 AM EST) Ferritin 617(H) 26 - 388 ng/mL LAB CHEMISTRY METHOD 07/08/2024 3:58 AM EST [facility] Blood Venous blood specimen / Unknown Venipuncture / Unknown 07/08/2024 12:02 AM EST 07/08/2024 12:45 AM EST Fidelina DELGADO LAB BLOOD ORDERABLES [facility] [address] [place] [address], [place] [phone] * (ABNORMAL) Osmolality (07/08/2024 12:02 AM EST) Osmolality [place] 272(L) 280 - 300 mOsm/kg LAB CHEMISTRY METHOD 07/08/2024 1:19 AM EST [facility] Blood Venous blood specimen / Unknown Venipuncture / Unknown 07/08/2024 12:02 AM EST 07/08/2024 12:45 AM EST Fidelina DELGADO LAB BLOOD ORDERABLES [facility] [address] [place] [address], * (ABNORMAL) Basic metabolic panel (07/08/2024 12:02 AM EST) Sodium 130(L) 133 - 145 mmol/L LAB CHEMISTRY METHOD 07/08/2024 1:29 AM [facility] Potassium 3.9 3.5 - 5.5 mmol/L LAB CHEMISTRY METHOD 07/08/2024 1:29 AM [facility] Chloride 97 96 - 110 mmol/L LAB CHEMISTRY METHOD 07/08/2024 1:29 AM [facility] CO2 28 21 - 32 mmol/L LAB CHEMISTRY METHOD 07/08/2024 1:29 AM [facility] Anion Gap 5 3 - 11 LAB CHEMISTRY METHOD 07/08/2024 1:29 AM [facility] Glucose 128(H) 70 - 100 mg/dL LAB CHEMISTRY METHOD 07/08/2024 1:29 AM [facility] BUN 12 5 - 25 mg/dL LAB CHEMISTRY METHOD 07/08/2024 1:29 AM [facility] Creatinine 0.59(L) 0.70 - 1.30 mg/dL LAB CHEMISTRY METHOD 07/08/2024 1:29 AM [facility] eGFR 107 >=60 mL/min/1. 73m2 LAB CHEMISTRY METHOD 07/08/2024 1:29 AM [facility] Comment:Calculation based on the??Chronic Kidney Disease Epidemiology Collaboration (CKD-EPI) equation refit??without adjustment for race. BUN/Creatinine Ratio 20.3 LAB CHEMISTRY METHOD 07/08/2024 1:29 AM EST [facility] Calcium 8.2(L) 8.5 - 10.5 mg/dL LAB CHEMISTRY METHOD 07/08/2024 1:29 AM EST [facility] Blood Venous blood specimen / Unknown Venipuncture / Unknown 07/08/2024 12:02 AM EST 07/08/2024 12:45 AM EST Fidelina DELGADO LAB BLOOD ORDERABLES [facility] [address] [place] [address], * (ABNORMAL) Culture urine (07/07/2024 4:42 PM EST) Culture, Urine 10,000-49,000 CFU/mL Escherichia coli(A) SNEHAL 07/09/2024 10:09 AM EST [facility] Urine Urine specimen obtained by [...] coli Trimethoprim/Sulfamethoxazole SNEHAL <=20 ug/ml: Susceptible Julio Kruger MD LAB MICROBIOLOGY - GENERAL ORDERABLES Performing Organization Address [facility]/ZIP Co de Phone Number [facility] [address] [place] [address], [place] [phone] * Contreras urine culture tube (07/07/2024 4:42 PM EST) [facility] Extra Tube Hold for add-ons. 07/07/2024 6:02 PM [facility] Comment:Auto resulted. Urine Urine specimen obtained by clean catch procedure / Unknown Non-blood Collection / Unknown 07/07/2024 4:42 PM EST 07/07/2024 4:57 PM EST Julio Kruger MD LAB URINE ORDERAB LES Performing Organization Address [facility]/ZIP Co de Phone Number [facility] [address] [place] [address], [place] [phone] * (ABNORMAL) Urinalysis with reflex microscopic and culture (07/07/2024 4:42 PM EST) [facility] Specific Dixon Urine 1.013 1.003 - 1.030 LAB URINALYSIS - AUTOMATED METHOD 07/07/2024 5:45 PM [facility] pH, Urine 7.5 5.0 - 8.0 pH LAB URINALYSIS - AUTOMATED METHOD 07/07/2024 5:45 PM [facility] Leukocytes, Urine Trace(A) Negative LAB URINALYSIS - AUTOMATED METHOD 07/07/2024 5:45 PM [facility] Nitrite, Urine Negative Negative LAB URINALYSIS - AUTOMATED METHOD 07/07/2024 5:45 PM [facility] Protein, Urine Negative <=Trace mg/dL LAB URINALYSIS - AUTOMATED METHOD 07/07/2024 5:45 PM [facility] Glucose, Urine Negative Negative mg/dL LAB URINALYSIS - AUTOMATED METHOD 07/07/2024 5:45 PM [facility] Ketones, Urine Negative Negative mg/dL LAB URINALYSIS - AUTOMATED METHOD 07/07/2024 5:45 PM [facility] Urobilinogen, Urine 2.0(A) 0.2 - 1.0 mg/dL LAB URINALYSIS - AUTOMATED METHOD 07/07/2024 5:45 PM [facility] Bilirubin, Urine Negative Negative LAB URINALYSIS - AUTOMATED METHOD 07/07/2024 5:45 PM [facility] Blood, Urine Negative Negative LAB URINALYSIS - AUTOMATED METHOD 07/07/2024 5:45 PM [facility] RBC, Urine 0.9 0 - 4 /HPF LAB URINALYSIS - AUTOMATED METHOD 07/07/2024 5:45 PM [facility] WBC, Urine 3.7 0 - 4 /HPF LAB URINALYSIS - AUTOMATED METHOD 07/07/2024 5:45 PM [facility] Squamous Epithelial, Urine 29 0 - 60 /LPF LAB URINALYSIS - AUTOMATED METHOD 07/07/2024 5:45 PM [facility] Bacteria, Urine Negative Negative /HPF LAB URINALYSIS - AUTOMATED METHOD 07/07/2024 5:45 PM [facility] Hyaline Casts, Urine 0.4 0 - 3 /LPF LAB URINALYSIS - AUTOMATED METHOD 07/07/2024 5:45 PM [facility] Urine Urine specimen obtained by clean catch procedure / Unknown Non-blood Collection / Unknown 07/07/2024 4:42 PM EST 07/07/2024 4:57 PM EST Julio Kruger MD LAB URINE ORDERAB LES [facility] [address] [place], [place] [address] [phone] * Respiratory virus panel molecular study (07/07/2024 3:14 PM EST) Pathologist [facility] Adenovirus Detection by PCR Not Detected Not Detected LAB MICROBIOLOGY METHOD 07/07/2024 4:35 PM EST [facility] Influenza A PCR Not Detected Not Detected LAB MICROBIOLOGY METHOD 07/07/2024 4:35 PM EST [facility] Influenza B PCR Not Detected Not Detected LAB MICROBIOLOGY METHOD 07/07/2024 4:35 PM EST [facility] Coronavirus 229E Not Detected Not Detected LAB MICROBIOLOGY METHOD 07/07/2024 4:35 PM EST [facility] Coronavirus HKU1 Not Detected Not Detected LAB MICROBIOLOGY METHOD 07/07/2024 4:35 PM EST [facility] Coronavirus OC43 Not Detected Not Detected LAB MICROBIOLOGY METHOD 07/07/2024 4:35 PM [facility] Coronavirus NL63 Not Detected Not Detected LAB MICROBIOLOGY METHOD 07/07/2024 4:35 PM EST [facility] Parainfluenza Virus 1 Not Detected Not Detected LAB MICROBIOLOGY METHOD 07/07/2024 4:35 PM EST [facility] Parainfluenza Virus 2 Not Detected Not Detected LAB MICROBIOLOGY METHOD 07/07/2024 4:35 PM [facility] Parainfluenza Virus 3 Not Detected Not Detected LAB MICROBIOLOGY METHOD 07/07/2024 4:35 PM EST [facility] Parainfluenza Virus 4 Not Detected Not Detected LAB MICROBIOLOGY METHOD 07/07/2024 4:35 PM [facility] RSV PCR Not Detected Not Detected LAB MICROBIOLOGY METHOD 07/07/2024 4:35 PM EST [facility] Human Metapneumovirus A and B Not Detected Not Detected LAB MICROBIOLOGY METHOD 07/07/2024 4:35 PM [facility] Rhinovirus/Entero virus Not Detected Not Detected LAB MICROBIOLOGY METHOD 07/07/2024 4:35 PM EST [facility] Bordetella pertussis Not Detected Not Detected LAB MICROBIOLOGY METHOD 07/07/2024 4:35 PM EST [facility] Bordetella parapertussis Not Detected Not Detected LAB MICROBIOLOGY METHOD 07/07/2024 4:35 PM EST [facility] Mycoplasma pneumo by PCR Not Detected Not Detected LAB MICROBIOLOGY METHOD 07/07/2024 4:35 PM EST [facility] Chlamydia pneumoniae Not Detected Not Detected LAB MICROBIOLOGY METHOD 07/07/2024 4:35 PM EST [facility] SARS COV-2 Not Detected Not Detected LAB MICROBIOLOGY METHOD 07/07/2024 4:35 PM EST [facility] Swab Both anterior nares / Unknown Non-blood Collection / Unknown 07/07/2024 3:14 PM EST 07/07/2024 3:42 PM EST Narrative [facility] - 07/07/2024 4:35 PM EST Testing was performed using the [employer] Respiratory Pathogen PCR Assay. All results must [...] Kruger MD LAB MICROBIOLOGY - GENERAL ORDERABLES [facility] [address] [place] [address], * CT Head wo Contrast (07/07/2024 2:52 [...] Signed Date: 07/07/2024 15:01 ET Workstation ID: [id number] Transcribed By: Self Edit Transcribed Date: 07/07/2024 [...] Signed Date: 07/07/2024 15:01 ET Workstation ID: [id number] Transcribed By: Self Edit Transcribed Date: 07/07/2024 14:59 ET Julio Kruger MD IMG CT PROCEDURES * Creatine kinase (07/07/2024 2:11 PM EST) Pathologist [facility] Total CK 43 22 - 269 unit/L LAB CHEMISTRY METHOD 07/07/2024 2:49 PM EST [facility] Blood Venous blood specimen / Unknown Venipuncture / Unknown 07/07/2024 2:11 PM EST 07/07/2024 2:20 PM EST Sienna DELGADO LAB BLOOD ORDERABLES Performing Organization Address [facility] de Phone Number [facility] [address] [place] [address], [place] [phone] * Troponin I high sensitivity (07/07/2024 2:11 PM EST) [facility] High Sensitivity Troponin I 4 <=79 ng/L LAB CHEMISTRY METHOD 07/07/2024 2:54 PM EST [facility] Blood Venous blood specimen / Unknown Venipuncture / Unknown 07/07/2024 2:11 PM EST 07/07/2024 2:20 PM EST Narrative [facility] - 07/07/2024 2:54 PM EST High levels of biotin in samples may falsely decrease hsTroponin values. ??Use caution when interpreting hsTroponin results in patients taking biotin who exhibit renal impairment (eGFR <60) or in patients taking more than 20 mg/day of biotin. Reilly Núñez MD LAB BLOOD ORDERABLE S Performing Organization Address [facility]/ZIP Co de Phone Number [facility] [address] [place] [address], * (ABNORMAL) CBC auto differential (07/07/2024 2:11 PM EST) [facility] WBC 6.5 4.8 - 10.8 K/mcL LAB HEMETOLOGY METHOD 07/07/2024 2:32 PM [facility] RBC 3.90(L) 4.50 - 5.50 M/mcL LAB HEMETOLOGY METHOD 07/07/2024 2:32 PM EST [facility] Hemoglobin 12.5(L) 13.5 - 17.5 g/dL LAB HEMETOLOGY METHOD 07/07/2024 2:32 PM [facility] Hematocrit 36.3(L) 42.0 - 54.0 % LAB HEMETOLOGY METHOD 07/07/2024 2:32 PM [facility] MCV 92.6 79.0 - 98.0 FL LAB HEMETOLOGY METHOD 07/07/2024 2:32 PM [facility] MCH 31.9 27.0 - 32.0 pcg LAB HEMETOLOGY METHOD 07/07/2024 2:32 PM [facility] MCHC 34.4 32.0 - 37.0 g/dL LAB HEMETOLOGY METHOD 07/07/2024 2:32 PM [facility] RDW 13.7 11.0 - 15.0 % LAB HEMETOLOGY METHOD 07/07/2024 2:32 PM [facility] Platelets 232 130 - 400 K/mcL LAB HEMETOLOGY METHOD 07/07/2024 2:32 PM [facility] MPV 8.8 7.0 - 11.0 FL LAB HEMETOLOGY METHOD 07/07/2024 2:32 PM [facility] NRBC 0.0 <1.0 % LAB HEMETOLOGY METHOD 07/07/2024 2:32 PM [facility] NRBC Absolute 0.00 <0.10 K/mcL LAB HEMETOLOGY METHOD 07/07/2024 2:32 PM [facility] Neutrophils Relative 69.2 % LAB HEMETOLOGY METHOD 07/07/2024 2:32 PM [facility] Lymphocytes Relative 14.9 % LAB HEMETOLOGY METHOD 07/07/2024 2:32 PM [facility] Monocytes Relative 14.5 % LAB HEMETOLOGY METHOD 07/07/2024 2:32 PM [facility] Eosinophils Relative 0.6 % LAB HEMETOLOGY METHOD 07/07/2024 2:32 PM [facility] Basophils Relative 0.3 % LAB HEMETOLOGY METHOD 07/07/2024 2:32 PM [facility] Immature Granulocytes Relative 0.5 % LAB HEMETOLOGY METHOD 07/07/2024 2:32 PM [facility] Neutrophils Absolute 4.50 1.50 - 7.00 K/mcL LAB HEMETOLOGY METHOD 07/07/2024 2:32 PM [facility] Lymphocytes Absolute 0.97(L) 1.00 - 5.00 K/mcL LAB HEMETOLOGY METHOD 07/07/2024 2:32 PM [facility] Monocytes Absolute 0.94 0.20 - 1.00 K/mcL LAB HEMETOLOGY METHOD 07/07/2024 2:32 PM [facility] Eosinophils Absolute 0.04 0.00 - 0.50 K/mcL LAB HEMETOLOGY METHOD 07/07/2024 2:32 PM [facility] Basophils Absolute 0.02 0.00 - 0.20 K/mcL LAB HEMETOLOGY METHOD 07/07/2024 2:32 PM [facility] Immature Granulocytes Absolute 0.03 0.00 - 0.03 K/mcL LAB HEMETOLOGY METHOD 07/07/2024 2:32 PM [facility] Blood Venous blood specimen / Unknown Venipuncture / Unknown 07/07/2024 2:11 PM EST 07/07/2024 2:20 PM EST Julio Kruger MD LAB BLOOD ORDERAB LES [facility] [address] [place] [address], * (ABNORMAL) Comprehensive metabolic panel (07/07/2024 2:11 PM EST) Pathologist [facility] Sodium 126(L) 133 - 145 mmol/L LAB CHEMISTRY METHOD 07/07/2024 2:53 PM [facility] Potassium 4.3 3.5 - 5.5 mmol/L LAB CHEMISTRY METHOD 07/07/2024 2:53 PM [facility] Chloride 95(L) 96 - 110 mmol/L LAB CHEMISTRY METHOD 07/07/2024 2:53 PM [facility] CO2 26 21 - 32 mmol/L LAB CHEMISTRY METHOD 07/07/2024 2:53 PM EST [facility] Anion Gap 5 3 - 11 LAB CHEMISTRY METHOD 07/07/2024 2:53 PM [facility] Glucose 133(H) 70 - 100 mg/dL LAB CHEMISTRY METHOD 07/07/2024 2:53 PM [facility] BUN 15 5 - 25 mg/dL LAB CHEMISTRY METHOD 07/07/2024 2:53 PM [facility] Creatinine 0.58(L) 0.70 - 1.30 mg/dL LAB CHEMISTRY METHOD 07/07/2024 2:53 PM [facility] eGFR 108 >=60 mL/min/1. 73m2 LAB CHEMISTRY METHOD 07/07/2024 2:53 PM [facility] Comment:Calculation based on the??Chronic Kidney Disease Epidemiology Collaboration (CKD-EPI) equation refit??without adjustment for race. BUN/Creatinine Ratio 25.9 LAB CHEMISTRY METHOD 07/07/2024 2:53 PM EST [facility] Calcium 8.7 8.5 - 10.5 mg/dL LAB CHEMISTRY METHOD 07/07/2024 2:53 PM [facility] AST (SGOT) 29 10 - 42 unit/L LAB CHEMISTRY METHOD 07/07/2024 2:53 PM [facility] ALT (SGPT) 65(H) 10 - 60 unit/L LAB CHEMISTRY METHOD 07/07/2024 2:53 PM EST [facility] Alkaline Phosphatase 107 42 - 121 unit/L LAB CHEMISTRY METHOD 07/07/2024 2:53 PM [facility] Total Protein 6.3 6.0 - 8.0 g/dL LAB CHEMISTRY METHOD 07/07/2024 2:53 PM [facility] Albumin 3.2 3.2 - 5.0 g/dL LAB CHEMISTRY METHOD 07/07/2024 2:53 PM [facility] Total Bilirubin 0.7 0.0 - 1.4 mg/dL LAB CHEMISTRY METHOD 07/07/2024 2:53 PM [facility] Blood Venous blood specimen / Unknown Venipuncture / Unknown 07/07/2024 2:11 PM EST 07/07/2024 2:20 PM EST Julio Kruger MD LAB BLOOD ORDERAB LES [facility] [address] [place] [address], * ECG 12 lead (07/07/2024 1:53 PM EST) Ventricular Rate ECG 99 BPM GEMUSE Atrial Rate 99 BPM GEMUSE P-R Interval 180 ms GEMUSE QRS Duration 90 ms GEMUSE Q-T Interval 360 ms GEMUSE QTc 462 ms GEMUSE P Wave [place] 47 degrees GEMUSE R [place] 87 degrees GEMUSE T [place] 31 degrees GEMUSE ECG Interpretation Normal sinus rhythm Normal ECG No previous ECGs available Confirmed by MARCELA SINGH ([id number]) on 07/07/2024 5:41:11 PM GEMUSE 07/07/2024 1:53 PM EST 07/07/2024 5:41 PM EST Julio Kruger MD ECG ORDERABLES MILLY * ECG-Annotated (07/07/2024) Provider Onbase ECG ORDERABLES documented in this encounter Visit Diagnoses Diagnosis Failure to thrive in adult- Primary Adult failure to thrive Hyponatremia Hyposmolality and/or hyponatremia Generalized weakness Hyponatremia Hyposmolality and/or hyponatremia documented in this encounter Admitting Diagnoses Diagnosis Failure to thrive in adult Adult failure to thrive Hyponatremia Hyposmolality and/or hyponatremia documented in this encounter Administered Medications Inactive Administered Medications - up to 3 most recent administrations Medication Order MAR Action Action Date Dose Rate Site 2-octyl cyanoacrylate liquid 1 Application 1 Application, topical (top), Once, On Wed07/07/24 at 1530, For 1 dose Given 07/07/2024 4:28 PM EST 1 Application enoxaparin (LOVENOX) injection 40 mg 40 mg, subcutaneous, Every 24 hours scheduled, First dose on 07/08/24 at 0900, Indication: VTE/PE Prophylaxis Given 07/08/2024 9:39 AM EST 40 mg Left Lower Abdomen lactated Ringer's bolus 1,000 mL 1,000 mL, intravenous, at 1,000 mL/hr, Administer over 1 Hours, Once, On Wed07/07/24 at 1425, For 1 dose New Bag 07/07/2024 2:46 PM EST 1,000 mL 1000 mL/hr ondansetron (PF) (ZOFRAN) injection 4 mg 4 mg, intravenous, Every 8 hours PRN, vomiting, nausea, Starting on Wed07/07/24 at 2022, -ONLY give IV if patient is unable to take orally. -If inadequate response within 30 minutes, proceed to next-line agent or contact provider if no further options ordered. ondansetron ODT (ZOFRAN-ODT) disintegrating tablet 4 mg 4 mg, oral, Every 8 hours PRN, vomiting, nausea, Starting on Wed07/07/24 at 2021, -Give IV if patient is unable to take orally. -If inadequate response within 30 minutes, proceed to next-line agent or contact provider if no further options ordered. For ODT tablets: -Do not remove from blister pack until just before administering. -Patient should allow tablet to dissolve on tongue. prochlorperazine (COMPAZINE) injection 10 mg 10 mg, intravenous, Every 6 hours PRN, nausea, vomiting, Starting on Wed07/07/24 at 2021, 2nd Line Option: -ONLY give IV if patient is unable to take orally. -Give IM if patient does not have IV Access -If inadequate response within 30 minutes, proceed to next-line agent or contact provider if no further options ordered. prochlorperazine (COMPAZINE) suppository 25 mg 25 mg, rectal, Every 12 hours PRN, nausea, vomiting, Starting on Wed07/07/24 at 2021, 2nd Line Option: -ONLY give AK if patient is unable to take orally and cannot receive IV/IM. -If inadequate response within 30 minutes, proceed to next-line agent or contact provider if no further options ordered. sodium chloride 0.9 % flush 10 mL 10 mL, intravenous, 2 times daily, First dose on Wed07/07/24 at 2100 Given 07/08/2024 9:39 AM EST 10 mL Given 07/07/2024 8:33 PM EST 10 mL sodium chloride 0.9 % flush 10 mL 10 mL, intravenous, As needed, line care, Starting on Wed07/07/24 at 2021 sodium chloride 0.9 % infusion 100 mL/hr, intravenous, Continuous, Starting on Wed07/07/24 at 2022, For 20 hours New Bag 07/08/2024 6:36 AM EST 100 mL/hr 100 mL/hr New Bag 07/07/2024 8:33 PM EST 100 mL/hr 100 mL/hr Ri ght Chest documented in this encounter Historical Medications * This list [...] mouth 1 (one) time each day. 09/08/2023 buPROPion XL (WELLBUTRIN XL) 300 mg 24 hr tablet Take 1 tablet (300 mg total) by mouth 1 (one) time each day. 06/05/2024 07/19/2024 FLUoxetine (PROzac) 20 mg capsule Take 1 capsule (20 mg total) by mouth 1 (one) time each day. 02/15/2024 07/19/2024 added in this encounter Active and Recently Administered Medications Times are shown in EST. Scheduled Medication Order 07/06/2024 07/07/2024 07/08/2024 2-octyl cyanoacrylate liquid 1 Application (COMPLETED) 1 Application, topical (top), Once, On Wed07/07/24 at 1530, For 1 dose 1628 (Given - Provider: Elaine Chu RN) enoxaparin (LOVENOX) injection 40 mg 40 mg, subcutaneous, Every 24 hours scheduled, First dose on Wed07/08/24 at 0900, Indication: VTE/PE Prophylaxis 0939 (Given - Provid er: Betty Conley RN) lactated Ringer's bolus 1,000 mL (COMPLETED) 1,000 mL, intravenous, at 1,000 mL/hr, Administer over 1 Hours, Once, On Wed07/07/24 at 1425, For 1 dose 1446 (New Bag - Provider: Silvia Lockett RN)1553 (Stopped - Provider: Elaine Chu RN) sodium chloride 0.9 % flush 10 mL(Linked Group 1) 10 mL, intravenous, 2 times daily, First dose on Wed07/07/24 at 2100 2032 (Given - Provider: Elaine Chu RN) 0939 (Given - Provider: Betty Conley RN) Continuous Medication Order 07/06/2024 07/07/2024 07/08/2024 sodium chloride 0.9 % infusion 100 mL/hr, intravenous, Continuous, Starting on Wed07/07/24 at 2022, For 20 hours 2032 (New Bag - Provider: Elaine Chu, TATUM) 0636 (New Bag - Provider: Dolores Parrish, TATUM)1810 (Due: Stopped) PRN Medication Order 07/06/2024 07/07/2024 07/08/2024 acetaminophen (TYLENOL) 650 mg/20.3 mL solution 650 mg 650 mg, oral, Every 4 hours PRN, mild pain, headaches, fever - temperature GREATER than 38 C (100.4 F), Starting on Wed07/07/24 at 2021 ondansetron (PF) (ZOFRAN) injection 4 mg(Linked Group 2) 4 mg, intravenous, Every 8 hours PRN, vomiting, nausea, Starting on Wed07/07/24 at 2021, -ONLY give IV if patient is unable to take orally. -If inadequate response within 30 minutes, proceed to next-line agent or contact provider if no further options ordered. ondansetron ODT (ZOFRAN-ODT) disintegrating tablet 4 mg(Linked Group 2) 4 mg, oral, Every 8 hours PRN, vomiting, nausea, Starting on Wed07/07/24 at 2021, -Give IV if patient is unable to take orally. -If inadequate response within 30 minutes, proceed to next-line agent or contact provider if no further options ordered. For ODT tablets: -Do not remove from blister pack until just before administering. -Patient should allow tablet to dissolve on tongue. prochlorperazine (COMPAZINE) injection 10 mg(Linked Group 3) 10 mg, intravenous, Every 6 hours PRN, nausea, vomiting, Starting on Wed07/07/24 at 2021, 2nd Line Option: -ONLY give IV if patient is unable to take orally. -Give IM if patient does not have IV Access -If inadequate response within 30 minutes, proceed to next-line agent or contact provider if no further options ordered. prochlorperazine (COMPAZINE) suppository 25 mg(Linked Group 3) 25 mg, rectal, Every 12 hours PRN, nausea, vomiting, Starting on Wed07/07/24 at 2021, 2nd Line Option: -ONLY give AK if patient is unable to take orally and cannot receive IV/IM. -If inadequate response within 30 minutes, proceed to next-line agent or contact provider if no further options ordered. sodium chloride 0.9 % flush 10 mL(Linked Group 1) 10 mL, intravenous, As needed, line care, Starting on Wed07/07/24 at 2021 Linked Groups Order Group 1: Insert peripheral IV (CANCELED) STAT, Once, On Wed07/07/24 at 2022, For 1 occurrence And Maintain IV access (CANCELED) Until discontinued, Starting on Wed07/07/24 at 2022, Until Specified And Saline lock IV (CANCELED) Routine, Once, On Wed07/07/24 at 2022, For 1 occurrence And sodium chloride 0.9 % flush 10 mLJump to med 10 mL, intravenous, 2 times daily, First dose on Wed07/07/24 at 2100 And sodium chloride 0.9 % flush 10 mLJump to med 10 mL, intravenous, As needed, line care, Starting on Wed07/07/24 at 2021 Group 2: ondansetron ODT (ZOFRAN-ODT) disintegrating tablet 4 mgJump to med 4 mg, oral, Every 8 hours PRN, vomiting, nausea, Starting on Wed07/07/24 at 2021, -Give IV if patient is unable to take orally. -If inadequate response within 30 minutes, proceed to next-line agent or contact provider if no further options ordered. For ODT tablets: -Do not remove from blister pack until just before administering. -Patient should allow tablet to dissolve on tongue. Or ondansetron (PF) (ZOFRAN) injection 4 mgJump to med 4 mg, intravenous, Every 8 hours PRN, vomiting, nausea, Starting on Wed07/07/24 at 2021, -ONLY give IV if patient is unable to take orally. -If inadequate response within 30 minutes, proceed to next-line agent or contact provider if no further options ordered. Group 3: prochlorperazine (COMPAZINE) injection 10 mgJump to med 10 mg, intravenous, Every 6 hours PRN, nausea, vomiting, Starting on Wed07/07/24 at 2021, 2nd Line Option: -ONLY give IV if patient is unable to take orally. -Give IM if patient does not have IV Access -If inadequate response within 30 minutes, proceed to next-line agent or contact provider if no further options ordered. Or prochlorperazine (COMPAZINE) suppository 25 mgJump to med 25 mg, rectal, Every 12 hours PRN, nausea, vomiting, Starting on Wed07/07/24 at 2021, 2nd Line Option: -ONLY give AK if patient is unable to take orally and cannot receive IV/IM. -If inadequate response within 30 minutes, proceed to next-line agent or contact provider if no further options ordered. documented in this encounter Orders Medications Ordered That Eben ht Not Have Been Administered Count Last Ordered Date First Ordered Date acetaminophen (TYLENOL) 650 mg/20.3 mL solution 650 mg 1 07/07/2024 ondansetron (PF) (ZOFRAN) injection 4 mg 1 07/07/2024 ondansetron ODT (ZOFRAN-ODT) disintegrating tablet 4 mg 1 07/07/2024 prochlorperazine (COMPAZINE) injection 10 mg 1 07/07/2024 prochlorperazine (COMPAZINE) suppository 25 mg 1 07/07/2024 sodium chloride 0.9 % flush 10 mL 1 025 Diet Count Last Ordered Date First Orde red Date ADULT DISCHARGE DIET 1 07/08/2024 Nursing Count Last Ordered Date First Orde red Date ACTIVITY 1 07/08/2024 NOTIFY PROVIDER - INDICATE REASON 1 025 STRAIGHT CATH 1 07/07/2024 Consult Count Last Ordered Date First Orde red Date IP CONSULT TO NUTRITION SERVICES 2 07/08/19 25 07/07/2024 DEBLOCKER Count Last Ordered Date First Orde red Date DEBLOCKER SWALLOW EVAL AND TREAT 1 07/07/2024 Admission Count Last Ordered Date First Orde red Date ADMIT TO INPATIENT 1 07/07/2024 Transfer Count Last Ordered Date First Orde red Date ED TO FLOOR BED REQUEST 1 07/07/2024 Discharge Count Last Ordered Date First Orde red Date DISCHARGE PATIENT 1 07/08/2024 documented in this encounter Additional Health Concerns Infection Onset Date Last Indicated Resolved Time Respiratory Rule-Out 07/07/2024 07/07/2024 025 4:35 PM EST documented as of this encounter 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
--- OUTSIDE RECORDS SUMMARY | 2024-07-25 14:01 | XMS_ITS | Encounter Summary ---
[facility] Organization [facility] Address [address] [place] [address] Care Team Providers Care Automatic Spinning Lathe Setter Name Role Phone Min Mckenzie MD Primary Care Provider Reason for Visit * Reason Comments Altered Mental Status Last week confused related to electrolyte issues. Pt was admitted did well until today . Here with his Encounter Details Date Type Department Care Team (Late st Contact Info) Description 07/17/2024 12:22 AM EST - 07/17/2024 9:00 AM EST Emergency [facility] Emergency [address] [place] [id number] Adverse effect of antidepressant drug, initial encounter (Primary Dx) Discharge Disposition: Home or Self Care Social History Tobacco Use Types Packs/Day Years [...] Sign Reading Time Taken Comments Blood Pressure 137/80 07/17/2024 8:11 AM EST Pulse 109 07/17/2024 8:11 AM EST Temperature 37 ??C (98.6 ??F) 07/17/2024 8:11 AM EST Respiratory Rate 16 07/17/2024 8:11 AM EST Oxygen Saturation 95% 07/17/2024 8:11 AM EST Inhaled Oxygen Concentration - - Weight 77.1 kg (170 lb) 07/16/2024 10:46 PM EST Height 175.3 cm (5' 9 ) 07/16/2024 10:46 PM EST Body Mass Index 25.1 07/16/2024 10:46 PM EST documented in this encounter Discharge Instructions * Discharge Instructions* DANNY Snyder - 07/17/2024 7:06 AM EST Thank you for choosing [facility]'s Emergency Department for your care today. Thankfully your laboratory evaluation today is reassuring. Your magnesium and sodium was slightly low, however not as low as during your previous admission. Your magnesium was replaced with oral supplementation, and your low sodium was treated with IV fluids. At this time there is no indication foradmission to the hospital or continued ED observation, and it is safe to discharge you home. Your electrolyte abnormalities were not significant enough to have likely caused your recent increase in hallucinations and abnormal dreams. It is more likely that these symptoms are secondary to the recentincrease in your Wellbutrin medication. Please contact your PCP today to discuss safe augmentation or discontinuation of your Wellbutrin as deemed appropriate. Please stay well hydrated and get plenty of rest. Please follow up with your primary care physician for re-evaluation, discussion of your medications, additional management of your symptoms, and continued preventative care. Please return to the emergency department if you develop a sudden severe change in your symptoms, afever over 100.4,, or severe or recurrent vomiting, or if you experience any other new or worseningsymptoms or concerns. * Attachments The following attachments cannot be sent through Care Everywhere. * Medication Side Effects (Ghanaian) * Bupropion Oral Tablet (BUPROPION - ORAL) (Ghanaian) documented in this encounter Medications at Time [...] mouth 1 (one) time each day. 09/08/2023 aspirin 325 mg capsule 81 mg by nasogastric tube route 1 (one) time each day. 04/13/2014 07/19/2024 atorvastatin (LIPITOR) 40 mg tablet Take 1 tablet (40 mg total) via g-tube at bedtime. 09/08/2023 07/19/2024 buPROPion XL (WELLBUTRIN XL) 300 mg 24 hr tablet Take 1 tablet (300 mg total) by mouth 1 (one) time each day. 06/05/2024 07/19/2024 FLUoxetine (PROzac) 20 mg capsule Take 1 capsule (20 mg total) by mouth 1 (one) time each day. 02/15/2024 07/19/2024 documented as of this encounter Discharge Disposition Disposition Code Departure Means Destination Comment s Home or Self Care documented in this encounter Progress Notes * Radha Mendieta RN - 07/17/2024 4:35 AM EST [place] (DAUGHTER) TEL: [phone] Radha Mendieta RN 07/17/24 6046 * Dawna Andino RN - 07/16/2024 10:37 PM EST Pt has been shaking all day today per and having visual hallucinations. Pt's states the pt was here last week after falling our of bed and needed a laceration sutured.It was found the pt was hyponatremic and was admitted to the hospital. Pt currently has throat cancer, finished treatment and is awaiting a pet scan. Pt has a g-tube. Pt states they have increased the pt's Wellbutrin and also changed some of his anxiety meds. Pt's states the symptoms seem to have started after the Wellbutrin increase. * DANNY Snyder - 07/16/2024 10:29 PM EST Emergency Medicine Note Patient Name: Wood Rios Initial Evaluation: 07/16/2024 : 1955 Patient's PCP: Min Mckenzie MD Emergency Physician: DANNY Snyder History of Present Illness Chief Complaint: Chief Complaint Patient presents with ??? Altered Mental Status Last week confused related to electrolyte issues. Pt was admitted did well until today . 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 intake, nightmares, and visual hallucinations while falling asleep. The patient was seen at this facility last week after suffering a fall out of bed, patient was found to be hyponatremic and admitted. The patient was discharged on the , was reportedly doing well until today when the patient's noted increasing visual hallucinations and animated motions while sleeping. The patient's also advises that the patient's Wellbutrin was increased from 150 mg to 300 mg 2 weeks ago, prior to the initial fall and admission. The patient's reports following discharge from [facility] on the the patient was seen in follow-up by his PCP, at that time the patient was continued on 300 mg of Wellbutrin, but the patient's fluoxetine was changed to duloxetine. The patient and patient's deny any recurrent fall or trauma. Thepatient was supposed to follow-up with repeat laboratory evaluation on Wednesday however by the endof the PCP follow-up appointment the laboratory was closed and patient has not been able to get back to the laboratory for repeat labs prior to symptom onset today. ROS: I have performed a ROS with the pertinent positives and negatives documented in the history ofpresent illness. Previous History Past Medical History: Diagnosis Date ??? CAD (coronary artery disease) ??? Cancer (CMS/HCC) ??? Gallstone pancreatitis 07/07/2024 ??? History of myocardial infarction 07/07/2024 ??? Hypertension Past Surgical History: Procedure Laterality Date ??? CHOLECYSTECTOMY Social History Tobacco Use ??? Smoking status: Never ??? Smokeless tobacco: Never Substance Use Topics ??? Alcohol use: Yes ??? Drug use: No Family History Problem Relation Name Age of Onset ??? Heart attack Mother ??? Heart attack Brother is allergic to iodinated [...] 1 (one) time each day. Physical Exam Vitals: 07/16/24 2246 07/17/24 0111 BP: (!) 140/93 (!) 148/83 BP Location: Right arm Left arm Patient Position: Sitting Lying Pulse: 95 88 Resp: 18 18 Temp: 36.6 ??C (97.9 ??F) 36.8 ??C (98.2 ??F) TempSrc: Oral Oral SpO2: 97% 94% Weight: 77.1 kg (170 lb) Height: 1.753 m (69 ) CONSTITUTIONAL: The patient appears non-toxic, well nourished and in no acute distress. Vital signsreviewed as documented. HEAD: Atraumatic, normocephalic. EYES: EOMs grossly intact, pupils equal, conjunctiva clear, no exudate. ENT: Nares patent, no discharge. Airway patent, no audible stridor, visible mucosa is pink and moist without noted lesions. NECK: Trachea is midline, no obvious masses or gross abnormalities. CHEST: Symmetric movement, normal appearance. LUNGS: LS present and CTAB, no w/r/r. Non-labored work of breathing. CARDIAC: Regular Rhythm, S1/S2 appreciated, no murmurs, rubs or gallops. ABDOMEN: Abdomen soft/non-tender x4 quadrants, no masses or organomegaly. : Deferred. EXTREMITIES: Normal tone, moves all extremities spontaneously without reported pain. No obvious injury or deformity noted. NEURO: Alert and oriented x3, CN II-XII appear grossly intact. Cerebellar Functioning grossly intact. Speech clear and appropriate. PSYCH: normal affect, with appropriate eye contact and fluid, appropriate speech. No reported suicidality or homicidality. SKIN: Warm, dry, color appropriate, normal turgor. No rashes noted. Results Labs Reviewed CBC AND DIFFERENTIAL Narrative: The following orders were created for panel order CBC and differential. Procedure Abnormality Status --------- ------ CBC auto differential[[id number]] In process Please view results for these tests on the individual orders. BASIC METABOLIC PANEL MAGNESIUM CBC WITH AUTO DIFFERENTIAL HEPATIC FUNCTION PANEL POCT GLUCOSE, BLOOD Abnormal Labs Reviewed - No abnormal labs to display XR Chest 2 Views (Results Pending) I have discussed any resulted incidental/abnormal imaging and/or lab abnormalities with the patientand have instructed them of the need for further evaluation and workup with their primary care doctor. The laboratory results, imaging results and other diagnostic exam results were reviewed in the EMR. EKG Interpretation Critical Care Time None Medical Decision Making Patient is a 68-year-old male with history of tonsillar CA and recent episode of hyponatremia presenting to the ED for evaluation of worsening weakness, p.o. intake, and visual hallucinations and nightmares. The patient's exam reveals Rales in the right base, otherwise clear to auscultation, exam is otherwise benign. Will obtain chest x-ray and laboratory evaluation, and adjust care plan accordingly. ED Course as of 07/17/24 0735 WedJul 17, 2024 0432 The patient's chest x-ray is unchanged from previous, appears consistent with elevated hemidiaphragm, no concern for effusion. The patient's laboratory evaluation reveals hyponatremia of 129, better than previous admission but worse than at time of discharge. Will initiate IV fluid hydration. The laboratory evaluation also shows hypomagnesemia, will replete orally. The patient symptoms may be related to his recent medication changes, will discuss findings with patient and spouse, and determine plan of care. [RM] 4719 At this time the patient's is comfortable with plan to provide IV fluid hydration, and then attempt ambulation trial with plan to discharge and have the patient follow-up with PCP by calling today to discuss discontinuing Wellbutrin. [RM] 0703 The patient's fluids are done infusing, patient will be ambulated and pending steady gait the patient will be discharged to follow-up with PCP Dr. Mckenzie to discontinue Wellbutrin as indicated. [RM] 0710 The patient was able to successfully ambulate approximately 50 feet without somatic complaint or unsteady gait. Patient will be discharged to follow-up with Dr. Mckenzie as discussed previously. Boththe patient and patient's spouse are comfortable with this plan of care. [RM] ED Course User Index [RM] DANNY Snyder Clinical Impressions as of 07/17/24 0735 Adverse effect of antidepressant drug, initial encounter Medications - No data to display Procedures Procedures Diagnosis No diagnosis found. Disposition Data Unavailable ED Prescriptions None Physician Attestation DANNY Snyder 07/17/24 025 DANNY Snyder 07/17/24 0735 documented in this encounter Plan of Treatment Upcoming Encounters Date Type Department Care Team (Late st Contact Info) Description 08/02/2024 12:30 PM EST Treatment [facility] Occupational Therapy [address] [address] Leticia Lau P, OTR/L documented as of this encounter Procedures Procedure Name Priority Date/Time Associated Diagnosis Comments HEPATIC FUNCTION PANEL STAT 07/17/2024 3:33 AM EST XR CHEST 2 VIEWS STAT 07/17/2024 3:06 AM EST CBC WITH AUTO DIFFERENTIAL STAT 07/17/2024 2:25 AM EST CBC AND DIFFERENTIAL STAT 07/17/2024 2:25 AM EST MAGNESIUM STAT 07/17/2024 2:25 AM EST BASIC METABOLIC PANEL STAT 07/17/2024 2:25 AM EST ECG ANNOTATED 07/17/2024 ECG 12-LEAD STAT 07/16/2024 11:11 PM EST documented in this encounter Results * Hepatic Function Panel (07/17/2024 3:33 AM EST) Total Protein 6.2 6.0 - 8.0 g/dL LAB CHEMISTRY METHOD 07/17/2024 4:02 AM [facility] Albumin 3.2 3.2 - 5.0 g/dL LAB CHEMISTRY METHOD 07/17/2024 4:02 AM [facility] Total Bilirubin 0.7 0.0 - 1.4 mg/dL LAB CHEMISTRY METHOD 07/17/2024 4:02 AM [facility] Bilirubin, Direct 0.3 0.0 - 0.3 mg/dL LAB CHEMISTRY METHOD 07/17/2024 4:02 AM [facility] Bilirubin, Indirect 0.4 0.0 - 1.1 mg/dL LAB CHEMISTRY METHOD 07/17/2024 4:02 AM [facility] ALT (SGPT) 37 10 - 60 unit/L LAB CHEMISTRY METHOD 07/17/2024 4:02 AM [facility] AST (SGOT) 21 10 - 42 unit/L LAB CHEMISTRY METHOD 07/17/2024 4:02 AM [facility] Alkaline Phosphatase 95 42 - 121 unit/L LAB CHEMISTRY METHOD 07/17/2024 4:02 AM [facility] Blood Venous blood specimen / Unknown Venipuncture / Unknown 07/17/2024 3:33 AM EST 07/17/2024 3:38 AM EST Han DELGADO LAB BLOOD ORDERABLES [facility] [address] [place] [address], * XR Chest 2 Views (07/17/2024 3:06 AM EST) Anatomical Region Laterality Modality Body [...] Signed Date: 07/17/2024 08:02 ET Workstation ID: [id number] Transcribed By: Self Edit Transcribed Date: 07/17/2024 [...] Signed Date: 07/17/2024 08:02 ET Workstation ID: [id number] Transcribed By: Self Edit Transcribed Date: 07/17/2024 08:00 ET Han DELGADO IMG XR PROCEDURES * (ABNORMAL) CBC auto differential (07/17/2024 2:25 AM EST) [facility] WBC 5.3 4.8 - 10.8 K/mcL LAB HEMETOLOGY METHOD 07/17/2024 2:52 AM [facility] RBC 3.70(L) 4.50 - 5.50 M/mcL LAB HEMETOLOGY METHOD 07/17/2024 2:52 AM [facility] Hemoglobin 12.2(L) 13.5 - 17.5 g/dL LAB HEMETOLOGY METHOD 07/17/2024 2:52 AM [facility] Hematocrit 35.2(L) 42.0 - 54.0 % LAB HEMETOLOGY METHOD 07/17/2024 2:52 AM [facility] MCV 94.1 79.0 - 98.0 FL LAB HEMETOLOGY METHOD 07/17/2024 2:52 AM [facility] MCH 32.6(H) 27.0 - 32.0 pcg LAB HEMETOLOGY METHOD 07/17/2024 2:52 AM [facility] MCHC 34.7 32.0 - 37.0 g/dL LAB HEMETOLOGY METHOD 07/17/2024 2:52 AM [facility] RDW 13.8 11.0 - 15.0 % LAB HEMETOLOGY METHOD 07/17/2024 2:52 AM [facility] Platelets 139 130 - 400 K/mcL LAB HEMETOLOGY METHOD 07/17/2024 2:52 AM [facility] MPV 8.8 7.0 - 11.0 FL LAB HEMETOLOGY METHOD 07/17/2024 2:52 AM [facility] NRBC 0.0 <1.0 % LAB HEMETOLOGY METHOD 07/17/2024 2:52 AM [facility] NRBC Absolute 0.00 <0.10 K/mcL LAB HEMETOLOGY METHOD 07/17/2024 2:52 AM [facility] Neutrophils Relative 69.3 % LAB HEMETOLOGY METHOD 07/17/2024 2:52 AM [facility] Lymphocytes Relative 16.0 % LAB HEMETOLOGY METHOD 07/17/2024 2:52 AM [facility] Monocytes Relative 13.3 % LAB HEMETOLOGY METHOD 07/17/2024 2:52 AM [facility] Eosinophils Relative 0.6 % LAB HEMETOLOGY METHOD 07/17/2024 2:52 AM [facility] Basophils Relative 0.2 % LAB HEMETOLOGY METHOD 07/17/2024 2:52 AM [facility] Immature Granulocytes Relative 0.6 % LAB HEMETOLOGY METHOD 07/17/2024 2:52 AM [facility] Neutrophils Absolute 3.65 1.50 - 7.00 K/mcL LAB HEMETOLOGY METHOD 07/17/2024 2:52 AM [facility] Lymphocytes Absolute 0.84(L) 1.00 - 5.00 K/mcL LAB HEMETOLOGY METHOD 07/17/2024 2:52 AM [facility] Monocytes Absolute 0.70 0.20 - 1.00 K/mcL LAB HEMETOLOGY METHOD 07/17/2024 2:52 AM [facility] Eosinophils Absolute 0.03 0.00 - 0.50 K/mcL LAB HEMETOLOGY METHOD 07/17/2024 2:52 AM [facility] Basophils Absolute 0.01 0.00 - 0.20 K/mcL LAB HEMETOLOGY METHOD 07/17/2024 2:52 AM EST [facility] Immature Granulocytes Absolute 0.03 0.00 - 0.03 K/mcL LAB HEMETOLOGY METHOD 07/17/2024 2:52 AM EST [facility] Blood Venous blood specimen / Unknown Venipuncture / Unknown 07/17/2024 2:25 AM EST 07/17/2024 2:36 AM EST Neo Ordonez MD LAB BLOOD ORDERABLES Performing Organization Address [facility]/ZIP Co de Phone Number [facility] [address] [place] [address], * (ABNORMAL) Magnesium (07/17/2024 2:25 AM EST) Magnesium 1.8(L) 1.9 - 2.6 mg/dL LAB CHEMISTRY METHOD 07/17/2024 3:09 AM EST [facility] Blood Venous blood specimen / Unknown Venipuncture / Unknown 07/17/2024 2:25 AM EST 07/17/2024 2:36 AM EST Neo Ordonez MD LAB BLOOD ORDERABLES Performing Organization Address [facility]/ZIP Co de Phone Number [facility] [address] [place] [address], * (ABNORMAL) Basic metabolic panel (07/17/2024 2:25 AM EST) Sodium 129(L) 133 - 145 mmol/L LAB CHEMISTRY METHOD 07/17/2024 3:19 AM EST [facility] Potassium 3.9 3.5 - 5.5 mmol/L LAB CHEMISTRY METHOD 07/17/2024 3:19 AM [facility] Chloride 94(L) 96 - 110 mmol/L LAB CHEMISTRY METHOD 07/17/2024 3:19 AM EST [facility] CO2 30 21 - 32 mmol/L LAB CHEMISTRY METHOD 07/17/2024 3:19 AM [facility] Anion Gap 5 3 - 11 LAB CHEMISTRY METHOD 07/17/2024 3:19 AM [facility] Glucose 87 70 - 100 mg/dL LAB CHEMISTRY METHOD 07/17/2024 3:19 AM [facility] BUN 14 5 - 25 mg/dL LAB CHEMISTRY METHOD 07/17/2024 3:19 AM [facility] Creatinine 0.50(L) 0.70 - 1.30 mg/dL LAB CHEMISTRY METHOD 07/17/2024 3:19 AM [facility] eGFR 112 >=60 mL/min/1. 73m2 LAB CHEMISTRY METHOD 07/17/2024 3:19 AM [facility] Comment:Calculation based on the??Chronic Kidney Disease Epidemiology Collaboration (CKD-EPI) equation refit??without adjustment for race. BUN/Creatinine Ratio 28.0 LAB CHEMISTRY METHOD 07/17/2024 3:19 AM [facility] Calcium 8.5 8.5 - 10.5 mg/dL LAB CHEMISTRY METHOD 07/17/2024 3:19 AM [facility] Blood Venous blood specimen / Unknown Venipuncture / Unknown 07/17/2024 2:25 AM EST 07/17/2024 2:36 AM EST Neo Ordonez MD LAB BLOOD ORDERABLES [facility] [address] [place] [address], * ECG-Annotated (07/17/2024) Provider Onbase ECG ORDERABLES * ECG 12 lead (07/16/2024 11:11 PM EST) Ventricular Rate ECG 91 BPM GEMUSE Atrial Rate 91 BPM GEMUSE P-R Interval 180 ms GEMUSE QRS Duration 92 ms GEMUSE Q-T Interval 382 ms GEMUSE QTc 469 ms GEMUSE P Wave Victor 44 degrees GEMUSE R Victor 93 degrees GEMUSE T Victor 38 degrees GEMUSE ECG Interpretation Normal sinus rhythm Rightward axis When compared with ECG of 07-JUL-2024 13:53, No significant change was found Confirmed by DEVIN WHEELER ([id number]) on 07/17/2024 9:07:40 PM GEMUSE 07/16/2024 11:1 1 PM EST 07/17/2024 9:07 PM EST Neo Ordonez MD ECG ORDERABLES GEMUSE documented in this encounter Visit Diagnoses Diagnosis Adverse effect of antidepressant drug, initial encounter- Primary documented in this encounter Administered Medications Inactive Administered Medications - up to 3 most recent administrations Medication Order MAR Action Action Date Dose Rate Site magnesium oxide (MAG-OX) tablet 400 mg 400 mg, oral, Once, On Wed07/17/24 at 0433, For 1 dose Given 07/17/2024 5:48 AM EST 400 mg sodium chloride 0.9 % bolus 1,000 mL 1,000 mL, intravenous, at 1,000 mL/hr, Administer over 1 Hours, Once, On Wed07/17/24 at 0431, For 1 dose New Bag 07/17/2024 5:48 AM EST 1,000 mL 100 0 mL/hr documented in this encounter Active and Recently Administered Medications Times are shown in EST. Scheduled Medication Order 07/15/2024 07/16/2024 07/17/2024 magnesium oxide (MAG-OX) tablet 400 mg (COMPLETED) 400 mg, oral, Once, On Wed07/17/24 at 0433, For 1 dose 0548 (Given - Provid er: Radha Mendieta RN) sodium chloride 0.9 % bolus 1,000 mL (COMPLETED) 1,000 mL, intravenous, at 1,000 mL/hr, Administer over 1 Hours, Once, On Wed07/17/24 at 0431, For 1 dose 0548 (New Bag - Prov ider: Radha Mendieta RN)0650 (Stopped - Provider: Radha Mendieta RN) documented in this encounter Care Teams Automatic Spinning Lathe Setter Relationship Specialty Start Date End Date Min Mckenzie MD [address] [place] [address] PCP - General Internal Medicine 05/03/13 documented as of this encounter
--- OUTSIDE RECORDS SUMMARY | 2024-07-25 14:01 | XMS_ITS | Encounter Summary ---
Author Organization [facility] Address [address] [place] [address] Care Team Providers Care Sizer Hand Name Role Phone Min Mckenzie MD Primary Care Provider Encounter Details Date Type Department Care Team ([facility] st Contact Info) Description 07/20/2024 Community Care Management [facility] [address] [place] [address] Clara Psator Social History Tobacco Use Types Packs/Day Years [...] care for your loved ones. For example, childcare worker or elderly care for an older [...] Info) Description 08/02/2024 12:30 PM EST Treatment [facility] Occupational Therapy [address] [address] Leticia Lau P, OTR/L documented as of this encounter Visit Diagnoses Not on filedocumented in this encounter Care Teams Sizer Hand Relationship Specialty Start Date End Date Min Mckenzie MD [address] [place] [id number] PCP - General Internal Medicine 05/03/13 documented as of this encounter
--- OUTSIDE RECORDS SUMMARY | 2024-07-25 14:01 | XMS_ITS | Encounter Summary ---
Author Organization [facility] Address [address] [place] [address] Care Team Providers Care Sql Server Developer Name Role Phone Min Mckenzie MD Primary Care Provider [phone] Encounter Details Date Type Department Care Team ([facility] st Contact Info) Description 07/20/2024 Telephone [facility] [address] [place] [address] Clara Pastor Social History Tobacco [...] your loved ones. For example, child care lead teacher or elderly care for an older adult? [...] Info) Description 08/02/2024 12:30 PM EST Treatment [facility] Occupational Therapy [address] [address] Leticia Lau P, OTR/L documented as of this encounter Visit Diagnoses Not on filedocumented in this encounter Care Teams Sql Server Developer Relationship Specialty Start Date End Date Min Mckenzie MD [address] [place] [id number] PCP - General Internal Medicine 05/03/13 documented as of this encounter
--- OUTSIDE RECORDS SUMMARY | 2024-07-25 14:01 | XMS_ITS ---
Author Organization [address] [facility] Address [address] [place] [address] Phone Care Team Providers Care Acquisition Professional Name Role Phone Min Mckenzie MD Primary Care Provider [phone] Community Health Worker Program Status:Closed (Closed) Start date:07/20/2024 Enrollment date:07/20/2024 End date:07/20/2024 Close reason:Not interested at this time Overview Community Health Worker Program Continued Care and Services Coordination
--- NOTE | 2024-07-25 14:02 | A.OFFVIS_ITS ---
Vital Signs 07/25/24 14:03 Height 5 ft 9 in Weight 173 lb 1.006 oz BMI 25.6 BP 140/68 H Blood Pressure Location Rt brachial Position Sitting Pulse 119 H Pulse Source Pulse Oximeter Pulse Oximetry (%) 96 Oxygen Delivery Method Room Air Intake Visit Reasons: COPD Allergies Iodinated Contrast Media [IV Dye, Iodine Containing] Allergy (Intermediate, Verified 07/25/24 14:05) HIVES IV contrast Allergy (Unknown, Uncoded 07/25/24 14:05) rash HPI Comments Details: The patient is a 68-year-old gentleman with a known history of sleep apnea on CPAP for many years. He has had up to 3 machines. The therapy has been affecting beneficial. He does use a fullface mask and this is comfortable for him. He does use it for more than 4 hours a night. He was previously getting it through [email or web address]. Will go ahead and request a download from his [employer] company, [employer] and will send a prescription also for supplies. The patient does complaint of some dyspnea on exertion. Usually when going up a flight as stairs or up at incline in the [id number] severity. We did review his last chest x-ray that was from December 2021 done at [facility]. It appears that he has a moderately elevated right hemidiaphragm resulting in some atelectasis in that area. The x-ray was not compare to there is no history. On further questioning he did have a serious accident with on a heavy machinery where he injured that lower chest area with the machinery. This could be secondary to that. Although is not clear at this moment. Will go ahead and request the chest x-ray. If is still unclear of for looks worse than before we can also consider getting a CAT scan some PFTs. 12/30/2022 the patient is here for a pulmonary follow-up visit. Since we last spoke the patient states that he has been having some hemoptysis. Has been happening for the last few months. It started to settle down. He has not seen as frequent episodes in the blood appears to be darker. It is typically mixed in with saliva. Denies any epistaxis. He was evaluated by his primary care doctor initially with a chest x-ray and subsequently with a CT scan of the chest done at [facility]. I personally viewed. Again, he has the right hemidiaphragm elevated likely secondary to trauma. He does have atelectasis in that area. Difficult to assess that area since is abnormal. No other findings of any parenchymal disease or alveolar hemorrhage. Explained to him that the most common reason for coughing up blood is bronchitis. It could also be a posterior nasopharynx bleeding episode that is not resulting in any significant epistaxis. Either way will go ahead and treat him with doxycycline for the possibility of a smoldering respiratory infection causing some bleeding. However, if the patient is no better and continues having the blood or if he gets worse will go ahead and plan for bronchoscopy to better address the airways. The patient has been using his CPAP. I did download the machine. His AHI is down 0.7. He does use it about 9 hours a night. The therapy has been affecting beneficial. He is to continue using it as prescribed. He was asking about the hypoglossal nerve stimulator. I do not advise it for him. At this point the patient will follow-up in 2-3 months or sooner if he starts developing worsening hemoptysis again plan for bronchoscopy. 03/17/2023 the patient is here for a pulmonary sick visit. Apparently he was hospitalized recently after developing severe abdominal discomfort and found to have a perforated gallbladder. The patient did require surgery. He was hospitalized at [facility] for period of time. He was on oxygen while at [facility]. He was given antibiotics and the patient was subsequently discharged. Still having some shortness of breath with activity. Still not feeling completely strong. In addition to that has had this worsening cough and persistent cough that has been bothering him day and night. Typically the cough is nonproductive. On examination he does have some expiratory wheezing. Explained to him that he may have had some micro aspirations relating to aspiration related reactive airways disease and inflammatory changes. The patient did receive a nebulizer treatment in the office with improvement in respiratory symptoms. His cough subsided significantly. He already completed multiple courses of antibiotics. In addition to that will try to avoid prednisone in view of his recent surgery to allow good healing. However, the patient's symptoms worsen he will call and I will send him additional medications. For now will keep him on a short-acting beta agonist that he can use as needed. also to note, during the office visit we did go for a walking oximetry. The patient has pulse ox with activity range around 92-92%. The patient is still not his baseline but he does not qualify for oxygen. We talked about the importance of deep breathing and walking to try to further expand his lungs and improve his lung capacity. 06/22/2023 the patient is here for a follow-up visit. Since we last spoke he was rehospitalized after having more complications due to the perforated gallbladder. He states he required multiple procedures and currently being followed closely by his surgeons. He has been using the CPAP. The CPAP therapy continues to be affecting beneficial. He even use it while in hospital. His major complaints at this point is that he has had some episodic hemoptysis. Sometimes is clear mucus and sometimes he notices that the blood. Seems like it has been better for the last few days. I did ask him about any bleeding elsewhere he denies any epistaxis and denies any bleeding from any other orifice. The blood appears to be bright red when it does come out. The patient did cough in the office but is mucus was clear without any specks of blood which is reassuring. His exam is also reassuring. I did also having undergo a chest x-ray demonstrating no acute disease. 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 The patient will monitor closely his symptoms if the hemoptysis returns or worsens he will call the office for an earlier assessment. Currently he is not on any blood thinners. 10/18/2023 the patient is here for pulmonary follow-up visit. He is still having issues after his hospitalization at [facility]. Still having episodes of hemoptysis. The patient complains of a sore throat. Hurts in some areas in the neck area. He is concerned after a lot of manipulations with the 82 to when he was intubated in the ICU and is also concerned with the fact that his father of head and neck cancer. I did during exam no evidence of any significant abnormalities noted in the posterior pharynx or in the gingiva to explain the bleeding. No evidence of any epistaxis. Will go ahead and request a CT scan of the neck to better address the neck pain in addition to the hemoptysis. We also talked about considering bronchoscopy to better evaluate that area as well. Will wait after the CT scan to perform bronchoscopy if he is still having episodes of bleeding. Will continue with the current respiratory therapy from now. He is using CPAP every night CPAP therapy continues to be affecting beneficial. He does use it every night for more than 4 hours a night. Will follow-up 6-[address] scan. If he has any worsening symptoms he will call prior to that. 01/04/2024 the patient is here for pulmonary follow-up visit. Overall the patient has been doing fair. He still complains of his difficulty swallowing addition to that he has had the persistent hemoptysis. Sometimes he has bright red blood. He feels is coming from the throat. He feels is related to his intubation. Therefore, we had him undergo CT scan of the neck. His oropharynx appears to be intact. In the area of the larynx in the vocal cords this is a little bit less clarity. Therefore, will go ahead and perform bronchoscopy at this point to better assess the area of the larynx for any injury and also to assess the trachea proximal trachea for any irritations or areas of bleeding. In the meantime also reassess the nasopharynx and the lower respiratory tract also assessing for any further areas of irritation and bleeding. In the meantime the patient has been using the CPAP the CPAP therapy has been affecting beneficial. Continues use it more than 4 hours a night. We will undergo the bronchoscopy tomorrow since we have an opening available. The patient will be kept NPO. She does take a baby aspirin which she is okay for him to continue. 05/05/2024 the patient is here for a pulmonary follow-up visit. The patient has had a very eventful few months. He was diagnosed with laryngeal cancer and subsequently after that completed radiation. Having significant stomatitis and irritation to the larynx. The patient is having hard time tolerating the CPAP. He is having significant congestion and mucus production and also gagging vomiting. Therefore he can not use the fullface mask. Will go ahead and treat him with chlorhexidine mouthwash in addition to some liquid Augmentin to see if we can clear any infectious processes in order for him to feel better. If he is starting to feel better he can start taking naps during the daytime with CPAP to see if he tolerates it better. And if he does so further then he can continue to use CPAP at nighttime. In the meantime while he is off the CPAP will have him get an overnight oximetry to make sure that he is not having significant hypoxia at nighttime. In the next few months he is going to undergo a PET scan to see his response to therapy. Will follow-up in 3 or 4 months. If he has any issues prior to that he will call for an earlier assessment. 07/25/2024 the patient is here for a pulmonary follow-up visit. The patient overall is doing ok. He finishes radiation therapy and starting to swallow little bit better. Although still hurts. He needs to follow through with the saltwater rinses he also has the magic mouthwash that he is not using. He is not drinking enough water at times and he is already getting dehydrated. The patient does have a PET scan scheduled soon will see the results of his therapy hopefully his stable. In the meantime he has been using the CPAP for the last 4 days. Finally was able to use it because the cough has been better. He slept for more than 10 hours the 1st night and he felt that it helped. Current settings are 8-12 APAP. His AHI was 5.3 therefore I will increase his maximum pressure from 12-13 just to see if we can improve his AHI little bit more without aggravating his irritation of the throat. If he does not tolerate the slight increase in pressure he can always call and I can decrease it again. He will follow-up in 3-4 months if he has any issues he will call for an earlier evaluation. For now he also try some benzonatate cough drops to see if this provides some relief. [facility] Medical History (Updated 05/07/24 @ 20:01 by Taj Jernigan MD) Dysphagia Bleeding from mouth Tonsillar cancer Neck pain Dyspnea Elevated diaphragm WILIAM (obstructive sleep apnea) Hypogonadism in male Urgency incontinence Renal stones BPH (benign prostatic hyperplasia) Hypogonadism Family History Other CVD (cardiovascular disease) Cancer Pancreatic cancer Social History Patient Tobacco Use Status: Never used Tobacco Review of Systems Const Denies chills, Reports daytime sleepiness, Reports fatigue, Denies fever(s) and Reports weight loss ENT Reports change in voice, Reports dysphagia, Denies nasal congestion, Reports neck pain and Reports sore throat Card Reports no additional complaints, Denies syncope and Reports dyspnea on exertion Resp Reports change in phlegm color, Reports chest congestion, Reports cough, Reports hemoptysis, Reports dyspnea on exertion and Denies wheezing GI Denies abdominal pain, Reports dysphagia and Denies heartburn Musc Reports no additional complaints and Reports neck pain Skin/Breast Denies rash Neuro Denies syncope Endo Reports fatigue Darwin/Lymph Denies lymphadenopathy Aller/Immun Denies wheezing Physical Exam Vital Signs: Last Vital Signs Pulse 119 H 07/25/24 14:03 BP 140/68 H 07/25/24 14:03 Pulse Ox 96 07/25/24 14:03 Oxygen Delivery Method Room Air 07/25/24 14:03 BMI result Body Mass Index 25.6 Const General: comfortable HEENT Head: Yes normocephalic Mouth: Normal oral and palatal mucosa present Teeth and gingiva: dentures Throat: Yes posterior oropharynx normal Eyes General: appearance normal, both eyes and all related structures Neck Neck: Yes trachea midline Chest Chest palpation & inspection: normal inspection of the chest Resp Effort & Inspection: normal respiratory effort Auscultation: no wheezes and diminished lung sounds Cardio Rate: regular rate Rhythm: regular rhythm Heart sounds: S1 normal heart sound present and S2 normal heart sound present Skin General skin exam: no rashes or lesions noted Extrem General: Yes no clubbing, cyanosis or edema Assessment & Plan Assessment & Plan (1) Cough: Code(s): R05.9 - Cough, unspecified Category: Medical Qualifiers: Cough type: subacute Qualified Code(s): R05.2 - Subacute cough (2) Neck pain: Code(s): M54.2 - Cervicalgia Category: Medical (3) WILIAM (obstructive sleep apnea): Code(s): G47.33 - Obstructive sleep apnea (adult) (pediatric) Category: Medical (4) 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 - Disorders of diaphragm Category: Medical (5) Dyspnea: Code(s): R06.00 - Dyspnea, unspecified Category: Medical Qualifiers: Dyspnea type: dyspnea on exertion Qualified Code(s): R06.09 - Other forms of dyspnea (6) Tonsillar cancer: Code(s): C09.9 - Malignant neoplasm of tonsil, unspecified Category: Medical (7) Dysphagia: Code(s): R13.10 - Dysphagia, unspecified Category: Medical Qualifiers: Dysphagia type: oral phase Qualified Code(s): R13.11 - Dysphagia, oral phase Plan contnue APAP until better, increased 8-12-->8-13; trial N30i small mask continue ROVERTO as needed start benzonates increase PO intake F/U 3-4 months Medications: New benzonatate 200 mg PO BID PRN 60 caps 3RF cough 30 days Coding Level of Care Code Est Pt Level 4 (96818) Complex EM visit Add On G2211 Diagnoses Subacute cough R05.2 Cough type: subacute Neck pain M54.2 WILIAM (obstructive sleep apnea) G47.33 Elevated diaphragm J98.6 Dyspnea on exertion R06.09 Dyspnea type: dyspnea on exertion Tonsillar cancer C09.9 Oral phase dysphagia R13.11 Dysphagia type: oral phase Time Spent (min) 17
[2024-07-25 14:03] VITALS: BP 140/68; PULSE 119; O2SAT 96; BMI 25.6
== END 2024-07-25 14:39 | disposition home or self-care (01) ==
PROVIDERS: PCP Internal Medicine; Visit Provider Hospitalist
DX: R05.2 Subacute cough (principal); M54.2 Cervicalgia; G47.33 Obstructive sleep apnea (adult) (pediatric); J98.6 Disorders of diaphragm; R06.09 Other forms of dyspnea; C09.9 Malignant neoplasm of tonsil, unspecified; R13.11 Dysphagia, oral phase
CPT/HCPCS: 99214; G2211

== ENCOUNTER → 2024-07-25 13:51 | Outpatient (BNVA) | payer OTHER, SELFPAY | PROVIDERS: PCP Internal Medicine; Visit Provider Hospitalist | DX: J44.9 Chronic obstructive pulmonary disease, unspecified (principal); G47.33 Obstructive sleep apnea (adult) (pediatric); R05.2 Subacute cough; J98.6 Disorders of diaphragm; R06.09 Other forms of dyspnea; C09.9 Malignant neoplasm of tonsil, unspecified; R13.11 Dysphagia, oral phase; Z99.89 Dependence on other enabling machines and devices | CPT/HCPCS: 99212 ==

== ENCOUNTER → 2024-09-18 14:30 | Outpatient (BNV) | payer OTHER, SELFPAY | PROVIDERS: PCP Internal Medicine; Visit Provider Radiology Diagnostic Radiology | DX: R13.10 Dysphagia, unspecified (principal) | CPT/HCPCS: 74230 ==

== ENCOUNTER 2024-09-18 14:32 | Outpatient (REF) | payer OTHER, SELFPAY ==
--- NOTE | ~2024-09-18 | FL_ITS ---
EXAMINATION: Modified Barium Swallow CLINICAL INFORMATION: Dysphagia. COMPARISON: None. TECHNIQUE: Modified barium swallow was performed under lateral fluoroscopy with patient in standing position. Barium mixed with solids and liquids of different consistencies was administered by the speech pathologist. Examination was recorded in the fluoroscopy suite. FINDINGS: There was flash laryngeal penetration to the level of the true vocal cords on thin liquids. The patient had sensation and appropriate cough response. There was no subglottic aspiration observed during this examination. 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 FLUOROSCOPY TIME: 2 minutes, 2 seconds Number of Spot Images: N/A DOSE AREA PRODUCT: 1134 uGy-m2 (microgray-meter squared) FL/FL Modified Barium Swallow IMPRESSION: 1. There was flash laryngeal penetration to the level of the true vocal cords on thin liquids. The patient had sensation and appropriate cough response. There was no subglottic aspiration observed during this examination. 2. Mild cricopharyngeal achalasia. Refer to the full speech therapy report to follow for further detail. Electronically signed by: Han Monreal MD 09/18/2024 04:25 PM EDT
--- OUTSIDE RECORDS SUMMARY | 2024-09-18 16:25 | XMS_ITS | Encounter Summary ---
Author Organization [facility] Address [address] [place] [address] Care Team Providers Care Material Specialist Name Role Phone Min Mckenzie MD Primary Care Provider [phone] Encounter Details Date Type Department Care Team ([facility] st Contact Info) Description 07/20/2024 Community Care Management [facility] [address] [place] [address] Clara Pastor Social History Tobacco [...] care for your loved ones. For example, children's nursery assistant or elderly care for an older [...] Assigned at Male 07/18/2024 4:21 PM EST Legal Sex Male 1:33 PM EST Gender Identity Male 07/18/2024 4:21 PM EST Sexual Orientation Straight 07/18/2024 4: 21 PM EST documented as of this encounter Functional Status * Are you deaf or do you have serious difficulty hearing? Answer Date of Assessment Author No 07/18/2024 4:16 PM EST Hiral Vasquez RN * Are you blind or do you have serious difficulty seeing, even when wearing glasses? Answer Date of Assessment Author No 07/18/2024 4:16 PM EST Hiral Vasquez RN * Do you have serious difficulty walking or climbing stairs? Answer Date of Assessment Author No 07/18/2024 4:16 PM EST Hiral Vasquez RN * Do you have serious difficulty dressing or bathing? Answer Date of Assessment Author No 07/18/2024 4:16 PM Hiral Weldon RN * Because of a physical, mental, or emotional condition, do you have serious difficulty doing errandsalone such as visiting the doctor? Answer Date of Assessment Author No 07/18/2024 4:16 PM Hiral Weldon RN documented as of this encounter Mental Status * Because of a physical, mental, or emotional condition, do you have serious difficulty concentrating, remembering, or making decisions? (5 years old or older) Answer Entry Date Author No 07/18/2024 4:16 PM Hiral Weldon RN documented in this encounter Plan of Treatment Upcoming Encounters Date Type Department Care Team (Late st Contact Info) Description 09/20/2024 12:30 PM EDT Treatment [facility] [address] [place] [phone] Leticia Lau P, OTR/L documented as of this encounter Visit Diagnoses Not on filedocumented in this encounter Care Teams Material Specialist Relationship Specialty Start Date End Date Min Mckenzie MD [address] [place] [phone] PCP - General Internal Medicine 05/03/13 documented as of this encounter
--- OUTSIDE RECORDS SUMMARY | 2024-09-18 16:25 | XMS_ITS | Patient Health Record ---
Author Organization [facility] Mahogany anita Lin Address [address] [place] [address] Care Team Providers Care Taxation Inspector Name Role Phone Min Mckenzie MD Primary Care Provider Josemanuel Tanner [phone] Allergies Allergen (clinical drug ingredient) Drug/Non Drug Allergy documented on EMR Reaction Allergy Type Onset Date Status tartrazine Dye, Tartrazine Unknown Drug Allergy Active Reason For Referral No Information Medications Medication SIG (Take, Route, Frequency, Duration) Notes [...] Once a day for 30 day(s) Active Social History Tobacco Use: Social History Observation Description Date Details (start date - stop date) Never Smoker NA - NA Tobacco Use/Smoking Question Answer Notes Are you [...] Are you an other tobacco user? No Problems Problem Type SNOMED Code ICD Code Onset Dates Problem Status W/U Status Risk Notes Problem Localized, primary osteoarthritis of the ankle and/or foot (741792346) Primary osteoarthrit is, right ankle and foot (M19.071) Active confirmed Plan Of Treatment Pending Test Test Name Order Date X ray : Foot, right 3V 02/18/2021 Insurance Providers Payer Name Payer Address Payer Phone Subscriber Number Group Number Insured Name Patient Relationship to Insured Coverage Start Date Coverage End Date [facility] [employer] Claims [address] [place] [id number] Wood Rios Self - patient is the insured Medical (General) History Medical History History ICD Code Cancer Depression Heart disease High blood pressure Kidney disease Reflux ( GERD) Surgical History Surgery Date(Month/Year) cancer surgery 2013
--- OUTSIDE RECORDS SUMMARY | 2024-09-18 16:26 | XMS_ITS | Clinical Summary ---
Author Organization [address] [facility] Address [address] [place] [address] Phone Care Team Providers Care Dub Room Engineer Name Role Phone Min Mckenzie MD Primary Care Provider [phone] Allergies Active Allergy Reactions Criticality Noted Date Comments Iodinated Contrast Media 07/26/2017 Medications pantoprazole (PROTONIX) 40 mg EC tablet Take [...] mouth 1 (one) time each day. Active Active Problems Problem Noted Date Diagnosed Date [...] Encounters Date Type Department Care Team Description 09/06/2024 2:30 PM EDT Treatment [facility] [address] [phone] Leticia Lau, OTR/L Lymphedema of face (Primary Dx) 08/24/2024 3:00 PM EST Treatment [facility] [address] [phone] Leticia Lau, OTR/L Lymphedema of face (Primary Dx) 08/16/2024 2:00 PM EST Treatment [facility] [address] [phone] Leticia Lau, OTR/L Lymphedema of face (Primary Dx) 08/09/2024 2:30 PM EST Treatment [facility] [address] [phone] Leticia Lau, OTR/L Lymphedema of face (Primary Dx) 08/02/2024 12:30 PM EST Treatment [facility] [address] [phone] Leticia Lau, OTR/L Lymphedema of face (Primary Dx) 08/02/2024 Plan of Care Documentation [facility] [address] [phone] 07/20/2024 [facility] [address] [place] [phone] Clara Pastor 07/20/2024 [facility] [address] [place] [phone] Clara Pastor 07/20/2024 [facility] [address] [place] [phone] Clara Pastor 07/18/2024 4:00 PM EST - 07/20/2024 12:19 PM [facility] Emergency [facility] [address] [place] [phone] Jesus Alberto Farah MD Millay, Scot A, MD Ishtiaq, Rizwan, MD Bukalo, Nermina, MD Bell, Alistair A, MD Dysphagia, unspecified type (Primary Dx); Unstable gait Discharge Disposition: Home-Health Care Svc 07/17/2024 12:22 AM EST - 07/17/2024 9:00 AM [facility] Emergency [facility] [address] [place] [phone] Adverse effect of antidepressant drug, initial encounter (Primary Dx) Discharge Disposition: Home or Self Care 07/07/2024 1:55 PM EST - 07/08/2024 4:06 PM EST Hospital Encounter [facility] [address] [place] [phone] Julio Kruger MD Jones, Christopher, MD Seralathan, Manikandan, MD Hyponatremia (Primary Dx); Generalized weakness Discharge Disposition: Home-Health Care Svc from Last 3 Months Surgical History Surgery [...] your loved ones. For example, child and adolescent psychiatrist or elderly care for an older adult? [...] Orientation Straight 07/18/2024 4: 21 PM EST Obstetrics History Last Filed Vital Signs Vital [...] Info) Description 09/20/2024 12:30 PM EDT Treatment [facility] [address] [phone] Leticia Lau P, OTR/L Health Maintenance Due Date Last Done [...] age to complete this topic Pneumococcal Vaccine: 50+ Years Completed 02/04/2023, 08/13/2009 HIB Vaccines Aged [...] patient's age to complete this topic Meningococcal B Vacine Aged Out No lo nger eligible based on patient's age to complete this topic RSV Immunization Patients Under 20 months Aged Out No longer eligible based on patient's age to complete this topic Varicella Vaccines Aged Out No longer eligible based on patient's age to complete this topic Goals Goal Patient Goal Type Associated Problems Recent Progress Patient-Stated? Author to do something with my glants General Yes Leticia Lau, OTR/L Note: Patient will be able to demo HEP to increase lymph flow Patient will be able to demo self massage to increase lymph flow Patient will have appropriate compression in place Patient presents with decreased pain in neck / area of saliva glands Procedures Procedure Name Priority Date/Time Associated Diagnosis [...] EST XR CHEST 2 VIEWS STAT 07/17/2024 3:0 6 AM EST CBC WITH AUTO DIFFERENTIAL STAT [...] 07/07/2024 1:53 PM EST ECG ANNOTATED 07/07/2024 from Last 3 Months Results * Lipid panel with reflex to direct LDL (07/20/2024 6:12 AM EST) Only the most recent of2 resultswithin the time period is included. Cholesterol 89 0 - 200 mg/dL LAB CHEMISTRY METHOD 07/20/2024 8:02 AM EST [facility] Triglycerides 43 0 - 150 mg/dL LAB CHEMISTRY METHOD 07/20/2024 8:02 AM EST [facility] HDL 50 >=40 mg/dL LAB CHEMISTRY METHOD 07/20/2024 8:02 AM EST [facility] LDL Calculated 30 0 - 100 mg/dL LAB CHEMISTRY METHOD 07/20/2024 8:02 AM [facility] VLDL Cholesterol Thomas 8.6 mg/dL LAB CHEMISTRY METHOD 07/20/2024 8:02 AM [facility] Non HDL Chol. (LDL+VLDL) 39 <145 mg/dL LAB CHEMISTRY METHOD 07/20/2024 8:02 AM [facility] Chol/HDL Ratio 1.8 0.0 - 4.4 LAB CHEMISTRY METHOD 07/20/2024 8:02 AM [facility] Blood Venous blood specimen / Unknown Venipuncture / Unknown 07/20/2024 6:12 AM EST 07/20/2024 6:30 AM EST us Flakita Dobson DIRECT SUPPORT STAFF MEMBER LAB BLOOD ORDERABLES Final Res ult [facility] [address] [place] [address], * (ABNORMAL) Basic metabolic panel (07/20/2024 6:12 AM EST) Only the most recent of5 resultswithin the time period is included. Sodium 133 133 - 145 mmol/L LAB CHEMISTRY METHOD 07/20/2024 7:20 AM [facility] Potassium 3.8 3.5 - 5.5 mmol/L LAB CHEMISTRY METHOD 07/20/2024 7:20 AM [facility] Chloride 98 96 - 110 mmol/L LAB CHEMISTRY METHOD 07/20/2024 7:20 AM [facility] CO2 28 21 - 32 mmol/L LAB CHEMISTRY METHOD 07/20/2024 7:20 AM [facility] Anion Gap 7 3 - 11 LAB CHEMISTRY METHOD 07/20/2024 7:20 AM [facility] Glucose 84 70 - 100 mg/dL LAB CHEMISTRY METHOD 07/20/2024 7:20 AM [facility] BUN 17 5 - 25 mg/dL LAB CHEMISTRY METHOD 07/20/2024 7:20 AM EST [facility] Creatinine 0.60(L) 0.70 - 1.30 mg/dL LAB CHEMISTRY METHOD 07/20/2024 7:20 AM EST [facility] eGFR 106 >=60 mL/min/1. 73m2 LAB CHEMISTRY METHOD 07/20/2024 7:20 AM EST [facility] Comment:Calculation based on the??Chronic Kidney Disease Epidemiology Collaboration (CKD-EPI) equation refit??without adjustment for race. BUN/Creatinine Ratio 28.3 LAB CHEMISTRY METHOD 07/20/2024 7:20 AM EST [facility] Calcium 8.6 8.5 - 10.5 mg/dL LAB CHEMISTRY METHOD 07/20/2024 7:20 AM EST [facility] Blood Venous blood specimen / Unknown Venipuncture / Unknown 07/20/2024 6:12 AM EST 07/20/2024 6:30 AM EST us Flakita Dobson DIRECT SUPPORT STAFF MEMBER LAB BLOOD ORDERABLES Final Res ult [facility] [address] [place] [address], * MR Brain wo Contrast (07/19/2024 8:56 [...] Aguilar Reviewed and Electronically Signed By: Yasmani Augilar Signed Date: 07/19/2024 09:51 ET Workstation ID: [id number] Transcribed By: Self Edit Transcribed Date: 07/19/2024 [...] Signed Date: 07/19/2024 09:51 ET Workstation ID: [id number] Transcribed By: Self Edit Transcribed Date: 07/19/2024 09:39 ET us Cipriano Almanza MD IM MRI PROCEDURES Final Resul t * (ABNORMAL) CBC auto differential (07/19/2024 6:43 AM EST) Only the most recent of5 resultswithin the time period is included. WBC 7.2 4.8 - 10.8 K/mcL LAB HEMETOLOGY METHOD 07/19/2024 7:08 AM [facility] RBC 4.20(L) 4.50 - 5.50 M/mcL LAB HEMETOLOGY METHOD 07/19/2024 7:08 AM [facility] Hemoglobin 13.6 13.5 - 17.5 g/dL LAB HEMETOLOGY METHOD 07/19/2024 7:08 AM [facility] Hematocrit 39.4(L) 42.0 - 54.0 % LAB HEMETOLOGY METHOD 07/19/2024 7:08 AM [facility] MCV 94.3 79.0 - 98.0 FL LAB HEMETOLOGY METHOD 07/19/2024 7:08 AM [facility] MCH 32.5(H) 27.0 - 32.0 pcg LAB HEMETOLOGY METHOD 07/19/2024 7:08 AM [facility] MCHC 34.5 32.0 - 37.0 g/dL LAB HEMETOLOGY METHOD 07/19/2024 7:08 AM [facility] RDW 13.9 11.0 - 15.0 % LAB HEMETOLOGY METHOD 07/19/2024 7:08 AM [facility] Platelets 158 130 - 400 K/mcL LAB HEMETOLOGY METHOD 07/19/2024 7:08 AM [facility] MPV 8.8 7.0 - 11.0 FL LAB HEMETOLOGY METHOD 07/19/2024 7:08 AM [facility] NRBC 0.0 <1.0 % LAB HEMETOLOGY METHOD 07/19/2024 7:08 AM [facility] NRBC Absolute 0.00 <0.10 K/mcL LAB HEMETOLOGY METHOD 07/19/2024 7:08 AM [facility] Neutrophils Relative 84.0 % LAB HEMETOLOGY METHOD 07/19/2024 7:08 AM [facility] Lymphocytes Relative 9.8 % LAB HEMETOLOGY METHOD 07/19/2024 7:08 AM [facility] Monocytes Relative 5.5 % LAB HEMETOLOGY METHOD 07/19/2024 7:08 AM [facility] Eosinophils Relative 0.0 % LAB HEMETOLOGY METHOD 07/19/2024 7:08 AM [facility] Basophils Relative 0.0 % LAB HEMETOLOGY METHOD 07/19/2024 7:08 AM [facility] Immature Granulocytes Relative 0.7 % LAB HEMETOLOGY METHOD 07/19/2024 7:08 AM [facility] Neutrophils Absolute 6.07 1.50 - 7.00 K/mcL LAB HEMETOLOGY METHOD 07/19/2024 7:08 AM [facility] Lymphocytes Absolute 0.71(L) 1.00 - 5.00 K/mcL LAB HEMETOLOGY METHOD 07/19/2024 7:08 AM [facility] Monocytes Absolute 0.40 0.20 - 1.00 K/mcL LAB HEMETOLOGY METHOD 07/19/2024 7:08 AM EST [facility] Eosinophils Absolute 0.00 0.00 - 0.50 K/[facility] LAB HEMETOLOGY METHOD 07/19/2024 7:08 AM EST [facility] Basophils Absolute 0.00 0.00 - 0.20 K/[facility] LAB HEMETOLOGY METHOD 07/19/2024 7:08 AM EST [facility] Immature Granulocytes Absolute 0.05(H) 0.00 - 0.03 K/[facility] LAB HEMETOLOGY METHOD 07/19/2024 7:08 AM EST [facility] Blood Venous blood specimen / Unknown Venipuncture / Unknown 07/19/2024 6:43 AM EST 07/19/2024 6:55 AM EST us Cipriano Almanza MD LAB BLOOD ORDERABLES Final Res ult Performing Organization Address City/[facility]/ZIP Co de Phone Number [facility] [address] [place] [address], [place] [phone] * Magnesium (07/19/2024 6:43 AM EST) Only the most recent of2 resultswithin the time period is included. Magnesium 2.0 1.9 - 2.6 mg/dL LAB CHEMISTRY METHOD 07/19/2024 7:18 AM EST [facility] Blood Venous blood specimen / Unknown Venipuncture / Unknown 07/19/2024 6:43 AM EST 07/19/2024 6:55 AM EST us Cipriano Almanza MD LAB BLOOD ORDERABLES Final Res ult [facility] [address] [place] [address], [place] [phone] * CT Neck Soft Tissue w Contrast [...] Jayden Antonio MD on 07/19/2024 00:46:[address] PROCEDURES Final Resu lt * CT Head wo and w Contrast [...] Antonio MD on 07/19/2024 00:40:46 Emmett DELGADO [facility] CT PROCEDURES Final Resu lt * Urinalysis with reflex microscopic and culture (07/18/2024 8:43 PM EST) Only the most recent of2 resultswithin the time period is included. Specific [place] Urine 1.014 1.003 - 1.030 LAB URINALYSIS - AUTOMATED METHOD 07/18/2024 9:36 PM EST [facility] pH, Urine 7.0 5.0 - 8.0 pH LAB URINALYSIS - AUTOMATED METHOD 07/18/2024 9:36 PM EST [facility] Leukocytes, Urine Negative Negative LAB URINALYSIS - AUTOMATED METHOD 07/18/2024 9:36 PM [facility] Nitrite, Urine Negative Negative LAB URINALYSIS - AUTOMATED METHOD 07/18/2024 9:36 PM [facility] Protein, Urine Negative <=Trace mg/dL LAB URINALYSIS - AUTOMATED METHOD 07/18/2024 9:36 PM [facility] Glucose, Urine Negative Negative mg/dL LAB URINALYSIS - AUTOMATED METHOD 07/18/2024 9:36 PM [facility] Ketones, Urine Negative Negative mg/dL LAB URINALYSIS - AUTOMATED METHOD 07/18/2024 9:36 PM [facility] Urobilinogen, Urine 1.0 0.2 - 1.0 mg/dL LAB URINALYSIS - AUTOMATED METHOD 07/18/2024 9:36 PM [facility] Bilirubin, Urine Negative Negative LAB URINALYSIS - AUTOMATED METHOD 07/18/2024 9:36 PM [facility] Blood, Urine Negative Negative LAB URINALYSIS - AUTOMATED METHOD 07/18/2024 9:36 PM [facility] Urine Urine specimen obtained by clean catch procedure / Unknown Non-blood Collection / Unknown 07/18/2024 8:43 PM EST 07/18/2024 8:56 PM EST us Jesus Alberto Farah MD LAB URINE ORDERABLES Kamila rodriguez Result [facility] [address] [place] [address], [place] [phone] * Contreras urine culture tube (07/18/2024 8:43 PM EST) Only the most recent of2 resultswithin the time period is included. Extra Tube Hold for add-ons. 07/18/2024 10:01 PM [facility] Comment:Auto resulted. Urine Urine specimen obtained by clean catch procedure / Unknown Non-blood Collection / Unknown 07/18/2024 8:43 PM EST 07/18/2024 8:56 PM EST us Jesus Alberto Farah MD LAB URINE ORDERABLES Kamila l Result Performing Organization Address City/[facility]/ZIP Co de Phone Number [facility] [address] [place] [address], [place] [phone] * ECG 12 lead (07/18/2024 6:26 PM EST) Only the most recent of3 resultswithin the time period is included. Ventricular Rate ECG 76 BPM GEMUSE Atrial Rate 76 BPM GEMUSE P-R Interval 176 ms GEMUSE QRS Duration 88 ms GEMUSE Q-T Interval 384 ms GEMUSE QTc 432 ms GEMUSE P Wave [place] 28 degrees GEMUSE R [place] 73 degrees GEMUSE T [place] 36 degrees GEMUSE ECG Interpretation Normal sinus rhythm Normal ECG When compared with ECG of 16-JUL-2024 23:11, No significant change was found Confirmed by HERNANDEZ SIMPSON ([id number]) on 07/19/2024 10:51:56 PM GEMUSE 07/18/2024 6:26 PM EST 07/19/2024 10:51 PM EST us Jesus Alberto Farah MD ECG ORDERABLES Final Res ult Performing Organization Address City/[facility]/ZIP Co de Phone Number GEMUSE * (ABNORMAL) POC glucose manually resulted (07/18/2024 6:08 PM EST) Glucose POC 171(A) 70 - 110 mg/dL Blood Capillary blood specimen / Unknown 07/18/2024 6:08 PM EST us Jesus Alberto Farah MD POINT OF CARE TEST ENTER/ EDIT ORDERABLES Final Result * (ABNORMAL) POCT Glucose, blood (07/18/2024 6:05 PM EST) Glucose POCT 171(H) 70 - 100 mg/dL 07/18/2024 6:07 PM EST [facility] Blood Capillary blood specimen / Unknown 07/18/2024 6:05 PM EST 07/18/2024 6:08 PM EST us Jesus Alberto Farah MD LAB POINT OF CARE TEST DOCKED DEVICE UNSOLICITED RESULTS Final Result Performing Organization Address [facility] de Phone Number [facility] [address] [place] [address], [place] [phone] * Hemoglobin A1c (07/18/2024 4:47 PM EST) [facility] Hemoglobin A1C 4.9 <6.5 % LAB CHEMISTRY METHOD 07/19/2024 11:21 AM EST [facility] Mean Bld Glu Estim. 94 mg/dL LAB CHEMISTRY METHOD 07/19/2024 11:21 AM EST [facility] Blood Venous blood specimen / Unknown Venipuncture / Unknown 07/18/2024 4:47 PM EST 07/18/2024 4:55 PM EST us Cipriano Almanza MD LAB BLOOD ORDERABLES Final Res ult Performing Organization Address [facility] de Phone Number [facility] [address] [place] [address], [place] [phone] * Ammonia (07/18/2024 4:47 PM EST) Ammonia 28 11 - 35 mcmol/L LAB CHEMISTRY METHOD 07/18/2024 5:30 PM EST [facility] Blood Venous blood specimen / Unknown Venipuncture / Unknown 07/18/2024 4:47 PM EST 07/18/2024 4:54 PM EST us Jesus Alberto Farah MD LAB BLOOD ORDERABLES Kamila l Result Performing Organization Address City/[facility] Co de Phone Number [facility] [address] [place] [address], * (ABNORMAL) Comprehensive metabolic panel (07/18/2024 4:47 PM EST) Only the most recent of2 resultswithin the time period is included. Sodium 129(L) 133 - 145 mmol/L LAB CHEMISTRY METHOD 07/18/2024 5:38 PM [facility] Potassium 4.2 3.5 - 5.5 mmol/L LAB CHEMISTRY METHOD 07/18/2024 5:38 PM [facility] Chloride 95(L) 96 - 110 mmol/L LAB CHEMISTRY METHOD 07/18/2024 5:38 PM [facility] CO2 27 21 - 32 mmol/L LAB CHEMISTRY METHOD 07/18/2024 5:38 PM EST [facility] Anion Gap 7 3 - 11 LAB CHEMISTRY METHOD 07/18/2024 5:38 PM [facility] Glucose 90 70 - 100 mg/dL LAB CHEMISTRY METHOD 07/18/2024 5:38 PM [facility] BUN 14 5 - 25 mg/dL LAB CHEMISTRY METHOD 07/18/2024 5:38 PM [facility] Creatinine 0.50(L) 0.70 - 1.30 mg/dL LAB CHEMISTRY METHOD 07/18/2024 5:38 PM [facility] eGFR 112 >=60 mL/min/1. 73m2 LAB CHEMISTRY METHOD 07/18/2024 5:38 PM [facility] Comment:Calculation based on the??Chronic Kidney Disease Epidemiology Collaboration (CKD-EPI) equation refit??without adjustment for race. BUN/Creatinine Ratio 28.0 LAB CHEMISTRY METHOD 07/18/2024 5:38 PM [facility] Calcium 8.9 8.5 - 10.5 mg/dL LAB CHEMISTRY METHOD 07/18/2024 5:38 PM [facility] AST (SGOT) 24 10 - 42 unit/L LAB CHEMISTRY METHOD 07/18/2024 5:38 PM [facility] ALT (SGPT) 41 10 - 60 unit/L LAB CHEMISTRY METHOD 07/18/2024 5:38 PM [facility] Alkaline Phosphatase 104 42 - 121 unit/L LAB CHEMISTRY METHOD 07/18/2024 5:38 PM [facility] Total Protein 6.6 6.0 - 8.0 g/dL LAB CHEMISTRY METHOD 07/18/2024 5:38 PM [facility] Albumin 3.5 3.2 - 5.0 g/dL LAB CHEMISTRY METHOD 07/18/2024 5:38 PM [facility] Total Bilirubin 0.8 0.0 - 1.4 mg/dL LAB CHEMISTRY METHOD 07/18/2024 5:38 PM [facility] Blood Venous blood specimen / Unknown Venipuncture / Unknown 07/18/2024 4:47 PM EST 07/18/2024 4:55 PM EST Jesus Alberto Farah MD LAB BLOOD ORDERABLES Kamila l Result [facility] [address] [place] [address], * ECG-Annotated (07/18/2024) Only the most recent of3 resultswithin the time period is included. us Provider Onbase ECG ORDERABLES Final Result * Hepatic Function Panel (07/17/2024 3:33 AM EST) Total Protein 6.2 6.0 - 8.0 g/dL LAB CHEMISTRY METHOD 07/17/2024 4:02 AM [facility] Albumin 3.2 3.2 - 5.0 g/dL LAB CHEMISTRY METHOD 07/17/2024 4:02 AM EST [facility] Total Bilirubin 0.7 0.0 - 1.4 mg/dL LAB CHEMISTRY METHOD 07/17/2024 4:02 AM [facility] Bilirubin, Direct 0.3 0.0 - 0.3 mg/dL LAB CHEMISTRY METHOD 07/17/2024 4:02 AM [facility] Bilirubin, Indirect 0.4 0.0 - 1.1 mg/dL LAB CHEMISTRY METHOD 07/17/2024 4:02 AM [facility] ALT (SGPT) 37 10 - 60 unit/L LAB CHEMISTRY METHOD 07/17/2024 4:02 AM [facility] AST (SGOT) 21 10 - 42 unit/L LAB CHEMISTRY METHOD 07/17/2024 4:02 AM [facility] Alkaline Phosphatase 95 42 - 121 unit/L LAB CHEMISTRY METHOD 07/17/2024 4:02 AM [facility] Blood Venous blood specimen / Unknown Venipuncture / Unknown 07/17/2024 3:33 AM EST 07/17/2024 3:38 AM EST us Han DELGADO LAB BLOOD ORDERABLES Final Resul t [facility] [address] [place] [address], * XR Chest 2 Views (07/17/2024 3:06 [...] Signed Date: 07/17/2024 08:02 ET Workstation ID: [id number] Transcribed By: Self Edit Transcribed Date: 07/17/2024 [...] Signed Date: 07/17/2024 08:02 ET Workstation ID: [id number] Transcribed By: Self Edit Transcribed Date: 07/17/2024 08:00 ET Han DELGADO IMG XR PROCEDURES Final Result * Sodium, urine, random (07/08/2024 6:49 AM EST) Sodium, Ur 78 mmol/L LAB CHEMISTRY METHOD 07/08/2024 8:28 AM EST [facility] Urine Urine specimen from urethra / Unknown Non-blood Collection / Unknown 07/08/2024 6:49 AM EST 07/08/2024 7:03 AM EST Fidelina DELGADO LAB URINE ORDERABLES Final Re sult Performing Organization Address [facility]/ZIP Co de Phone Number [facility] [address] [place] [address], [place] [phone] * Osmolality, urine (07/08/2024 6:49 AM EST) Pathologist [facility] Osmolality, Urine 367 300 - 1,300 mOsm/kg LAB CHEMISTRY METHOD 07/08/2024 7:53 AM EST [facility] Urine Urine specimen obtained by clean catch procedure / Unknown Non-blood Collection / Unknown 07/08/2024 6:49 AM EST 07/08/2024 7:03 AM EST Fidelina DELGADO LAB URINE ORDERABLES Final Re sult Performing Organization Address City/[facility]/ZIP Co de Phone Number [facility] [address] [place] [address], [place] [phone] * (ABNORMAL) Vitamin B12 and folate (07/08/2024 12:02 AM EST) Vitamin B-12 1,178(H) 250 - 900 pcg/mL LAB CHEMISTRY METHOD 07/08/2024 3:58 AM EST [facility] Folate 18.1(H) 2.8 - 17.0 ng/ml LAB CHEMISTRY METHOD 07/08/2024 3:58 AM EST [facility] Blood Venous blood specimen / Unknown Venipuncture / Unknown 07/08/2024 12:02 AM EST 07/08/2024 12:45 AM EST Fidelina DELGADO LAB BLOOD ORDERABLES Final Re sult Performing Organization Address [facility]/ZIP Co de Phone Number [facility] [address] [place] [address], [place] [phone] * (ABNORMAL) Iron and TIBC (07/08/2024 12:02 [...] AM EST Fidelina DELGADO LAB BLOOD ORDERABLES Final Re sult Performing Organization Address [facility] de Phone Number [facility] [address] [place] [address], [place] [phone] * (ABNORMAL) Osmolality (07/08/2024 12:02 AM EST) Osmolality [place] 272(L) 280 - 300 mOsm/kg LAB CHEMISTRY METHOD 07/08/2024 1:19 AM EST [facility] Blood Venous blood specimen / Unknown Venipuncture / Unknown 07/08/2024 12:02 AM EST 07/08/2024 12:45 AM EST Fidelina DELGADO LAB BLOOD ORDERABLES Final Re sult [facility] [address] [place] [address], [place] [phone] * (ABNORMAL) Ferritin (07/08/2024 12:02 AM EST) [facility] Ferritin 617(H) 26 - 388 ng/mL LAB CHEMISTRY METHOD 07/08/2024 3:58 AM EST [facility] Blood Venous blood specimen / Unknown Venipuncture / Unknown 07/08/2024 12:02 AM EST 07/08/2024 12:45 AM EST us Fidelina DELGADO LAB BLOOD ORDERABLES Final Re sult [facility] [address] [place] [address], [place] [phone] * (ABNORMAL) Culture urine (07/07/2024 4:42 PM EST) [facility] Culture, Urine 10,000-49,000 CFU/mL Escherichia coli(A) SNEHAL [...] Susceptible Julio Kruger MD LAB MICROBIOLOGY - GENERA L ORDERABLES Final Result [facility] [address] [place] [address], * Respiratory virus panel molecular study (07/07/2024 3:14 PM EST) Pathologist [facility] Adenovirus Detection by PCR Not Detected Not [...] PM EST [facility] Coronavirus NL63 Not Detected Not Detected LAB MICROBIOLOGY METHOD 07/07/2024 4:35 PM EST [facility] Parainfluenza Virus 1 Not Detected Not Detected LAB MICROBIOLOGY METHOD 07/07/2024 4:35 PM EST [facility] Parainfluenza Virus 2 Not Detected Not Detected LAB MICROBIOLOGY METHOD 07/07/2024 4:35 PM EST [facility] Parainfluenza Virus 3 Not Detected Not Detected LAB MICROBIOLOGY METHOD 07/07/2024 4:35 PM EST [facility] Parainfluenza Virus 4 Not Detected Not Detected LAB MICROBIOLOGY METHOD 07/07/2024 4:35 PM EST [facility] RSV PCR Not Detected Not Detected LAB MICROBIOLOGY METHOD 07/07/2024 4:35 PM [facility] Human Metapneumovirus A and B Not Detected Not Detected LAB MICROBIOLOGY METHOD 07/07/2024 4:35 PM EST [facility] Rhinovirus/Entero virus Not Detected Not Detected LAB MICROBIOLOGY METHOD 07/07/2024 4:35 PM EST [facility] Bordetella pertussis Not Detected Not Detected LAB MICROBIOLOGY METHOD 07/07/2024 4:35 PM [facility] Bordetella parapertussis Not Detected Not Detected LAB MICROBIOLOGY METHOD 07/07/2024 4:35 PM [facility] Mycoplasma pneumo by PCR Not Detected Not Detected LAB MICROBIOLOGY METHOD 07/07/2024 4:35 PM [facility] Chlamydia pneumoniae Not Detected Not Detected LAB MICROBIOLOGY METHOD 07/07/2024 4:35 PM [facility] SARS COV-2 Not Detected Not Detected LAB MICROBIOLOGY METHOD 07/07/2024 4:35 PM [facility] Swab Both anterior nares / Unknown Non-blood Collection / Unknown 07/07/2024 3:14 PM EST 07/07/2024 3:42 PM EST [facility] - 07/07/2024 4:35 PM EST Testing was performed using the [employer] Respiratory Pathogen PCR Assay. All results must [...] detection. Julio Kruger MD LAB MICROBIOLOGY - GENERA L ORDERABLES Final Result Performing Organization Address City/State/[facility] Co de Phone Number MILANA MERRITT DC ([facility] [address] [place] [address], * CT Head wo Contrast (07/07/2024 2:52 [...] Signed Date: 07/07/2024 15:01 ET Workstation ID: [id number] Transcribed By: Self Edit Transcribed Date: 07/07/2024 [...] Signed Date: 07/07/2024 15:01 ET Workstation ID: [id number] Transcribed By: Self Edit Transcribed Date: 07/07/2024 14:59 ET Julio Kruger MD IMG CT PROCEDURES Final R esult * Troponin I high sensitivity (07/07/2024 2:11 PM EST) [facility] High Sensitivity Troponin I 4 <=79 ng/L [...] taking more than 20 mg/day of biotin. us Reilly Núñez MD LAB BLOOD ORDERABLES Final Result [facility] [address] [place] [address], * Creatine kinase (07/07/2024 2:11 PM EST) Total CK 43 22 - 269 unit/L LAB CHEMISTRY METHOD 07/07/2024 2:49 PM EST [facility] Blood Venous blood specimen / Unknown Venipuncture / Unknown 07/07/2024 2:11 PM EST 07/07/2024 2:20 PM EST Sienna DELGADO LAB BLOOD ORDERABLES Final Resul t [facility] [address] [place] [address], [place] [phone] from Last 3 Months Insurance [facility] MEDIC[facility] Member Subscriber Plan / Payer (Ef fective 2022-Present) Name:Wood Rios Relation to Subscriber:Self Name:Wood Rios Payer ID:[id number] Group ID:[id number] Type:Not on file Address: [address] [place] [id number] Advance Directives * Full Code - Default [...] currently active code status orders. Care Teams Dub Room Engineer Relationship Specialty Start Date End Date Min Mckenzie MD [address] [place] [id number] PCP - General Internal Medicine 05/03/13
== END 2024-09-18 14:33 | disposition home or self-care (01) ==
LOC: HO.XRAY 14:32
PROVIDERS: PCP Internal Medicine; Visit Provider Hospitalist
DX: R13.10 Dysphagia, unspecified (principal)
CPT/HCPCS: 74230

== ENCOUNTER 2024-10-23 14:41 | Outpatient (AMB) | payer OTHER, SELFPAY ==
--- NOTE | 2024-10-23 14:41 | A.OFFVIS_ITS ---
Vital Signs 10/23/24 14:42 Height 5 ft 9 in Weight 180 lb 12.465 oz BMI 26.7 BP 112/56 L Blood Pressure Location Rt brachial Position Sitting Pulse 54 Pulse Source Pulse Oximeter Pulse Oximetry (%) 99 Oxygen Delivery Method Room Air Intake Visit Reasons: Subacute Cough Cost Specialist Required: No Allergies Iodinated Contrast Media [IV Dye, Iodine Containing] Allergy (Intermediate, Verified 10/23/24 14:44) HIVES IV contrast Allergy (Unknown, Uncoded 07/25/24 14:05) rash HPI Comments Details: The patient is a 69-year-old gentleman with a known history of sleep apnea on CPAP for many years. He has had up to 3 machines. The therapy has been affecting beneficial. He does use a fullface mask and this is comfortable for him. He does use it for more than 4 hours a night. He was previously getting it through [employer]. Will go ahead and request a download from his [employer], [employer] and will send a prescription also for supplies. The patient does complaint of some dyspnea on exertion. Usually when going up a flight as stairs or up at incline in the [id number]-[id number] severity. We did review his last chest x-ray that was from December 2021 done at [facility]. It appears that he has a moderately elevated right hemidiaphragm resulting in some atelectasis in that area. The x-ray was not compare to there is no history. On further questioning he did have a serious accident with on a heavy machinery where he injured that lower chest area with the machinery. This could be secondary to that. Although is not clear at this moment. Will go ahead and request the chest x-ray. If is still unclear of for looks worse than before we can also consider getting a CAT scan some PFTs. 12/30/2022 the patient is here for a pulmonary follow-up visit. Since we last spoke the patient states that he has been having some hemoptysis. Has been happening for the last few months. It started to settle down. He has not seen as frequent episodes in the blood appears to be darker. It is typically mixed in with saliva. Denies any epistaxis. He was evaluated by his primary care doctor initially with a chest x-ray and subsequently with a CT scan of the chest done at [facility]. I personally viewed. Again, he has the right hemidiaphragm elevated likely secondary to trauma. He does have atelectasis in that area. Difficult to assess that area since is abnormal. No other findings of any parenchymal disease or alveolar hemorrhage. Explained to him that the most common reason for coughing up blood is bronchitis. It could also be a posterior nasopharynx bleeding episode that is not resulting in any significant epistaxis. Either way will go ahead and treat him with doxycycline for the possibility of a smoldering respiratory infection causing some bleeding. However, if the patient is no better and continues having the blood or if he gets worse will go ahead and plan for bronchoscopy to better address the airways. The patient has been using his CPAP. I did download the machine. His AHI is down 0.7. He does use it about 9 hours a night. The therapy has been affecting beneficial. He is to continue using it as prescribed. He was asking about the hypoglossal nerve stimulator. I do not advise it for him. At this point the patient will follow-up in 2-3 months or sooner if he starts developing worsening hemoptysis again plan for bronchoscopy. 03/17/2023 the patient is here for a pulmonary sick visit. Apparently he was hospitalized recently after developing severe abdominal discomfort and found to have a perforated gallbladder. The patient did require surgery. He was hospitalized at [facility] for period of time. He was on oxygen while at [facility]. He was given antibiotics and the patient was subsequently discharged. Still having some shortness of breath with activity. Still not feeling completely strong. In addition to that has had this worsening cough and persistent cough that has been bothering him day and night. Typically the cough is nonproductive. On examination he does have some expiratory wheezing. Explai tomás to him that he may have had some micro aspirations relating to aspiration related reactive airways disease and inflammatory changes. The patient did receive a nebulizer treatment in the office with improvement in respiratory symptoms. His cough subsided significantly. He already completed multiple courses of antibiotics. In addition to that will try to avoid prednisone in view of his recent surgery to allow good healing. However, the patient's symptoms worsen he will call and I will send him additional medications. For now will keep him on a short-acting beta agonist that he can use as needed. also to note, during the office visit we did go for a walking oximetry. The patient has pulse ox with activity range around 92-92%. The patient is still not his baseline but he does not qualify for oxygen. We talked about the importance of deep breathing and walking to try to further expand his lungs and improve his lung capacity. 06/22/2023 the patient is here for a follow-up visit. Since we last spoke he was rehospitalized after having more complications due to the perforated gallbladder. He states he required multiple procedures and currently being followed closely by his surgeons. He has been using the CPAP. The CPAP therapy continues to be affecting beneficial. He even use it while in hospital. His major complaints at this point is that he has had some episodic hemoptysis. Sometimes is clear mucus and sometimes he notices that the blood. Seems like it has been better for the last few days. I did ask him about any bleeding elsewhere he denies any epistaxis and denies any bleeding from any other orifice. The blood appears to be bright red when it does come out. The patient did cough in the office but is mucus was clear without any specks of blood which is reassuring. His exam is also reassuring. I did also having undergo a chest x-ray demonstrating no acute disease. 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 The patient will monitor closely his symptoms if the hemoptysis returns or worsens he will call the office for an earlier assessment. Currently he is not on any blood thinners. 10/18/2023 the patient is here for pulmonary follow-up visit. He is still having issues after his hospitalization at [facility]. Still having episodes of hemoptysis. The patient complains of a sore throat. Hurts in some areas in the neck area. He is concerned after a lot of manipulations with the 82 to when he was intubated in the ICU and is also concerned with the fact that his father of head and neck cancer. I did during exam no evidence of any significant abnormalities noted in the posterior pharynx or in the gingiva to explain the bleeding. No evidence of any epistaxis. Will go ahead and request a CT scan of the neck to better address the neck pain in addition to the hemoptysis. We also talked about considering bronchoscopy to better evaluate that area as well. Will wait after the CT scan to perform bronchoscopy if he is still having episodes of bleeding. Will continue with the current respiratory therapy from now. He is using CPAP every night CPAP therapy continues to be affecting beneficial. He does use it every night for more than 4 hours a night. Will follow-up 6-[address] scan. If he has any worsening symptoms he will call prior to that. 01/04/2024 the patient is here for pulmonary follow-up visit. Overall the patient has been doing fair. He still complains of his difficulty swallowing addition to that he has had the persistent hemoptysis. Sometimes he has bright red blood. He feels is coming from the throat. He feels is related to his intubation. Therefore, we had him undergo CT scan of the neck. His oropharynx appears to be intact. In the area of the larynx in the vocal cords this is a little bit less clarity. Therefore, will go ahead and perform bronchoscopy at this point to better assess the area of the larynx for any injury and also to assess the trachea proximal trachea for any irritations or areas of bleeding. In the meantime also reassess the nasopharynx and the lower respiratory tract also assessing for any further areas of irritation and bleeding. In the meantime the patient has been using the CPAP the CPAP therapy has been affecting beneficial. Continues use it more than 4 hours a night. We will undergo the bronchoscopy tomorrow since we have an opening available. The patient will be kept NPO. She does take a baby aspirin which she is okay for him to continue. 05/05/2024 the patient is here for a pulmonary follow-up visit. The patient has had a very eventful few months. He was diagnosed with laryngeal cancer and s ubsequently after that completed radiation. Having significant stomatitis and irritation to the larynx. The patient is having hard time tolerating the CPAP. He is having significant congestion and mucus production and also gagging vomiting. Therefore he can not use the fullface mask. Will go ahead and treat him with chlorhexidine mouthwash in addition to some liquid Augmentin to see if we can clear any infectious processes in order for him to feel better. If he is starting to feel better he can start taking naps during the daytime with CPAP to see if he tolerates it better. And if he does so further then he can continue to use CPAP at nighttime. In the meantime while he is off the CPAP will have him get an overnight oximetry to make sure that he is not having significant hypoxia at nighttime. In the next few months he is going to undergo a PET scan to see his response to therapy. Will follow-up in 3 or 4 months. If he has any issues prior to that he will call for an earlier assessment. 07/25/2024 the patient is here for a pulmonary follow-up visit. The patient overall is doing ok. He finishes radiation therapy and starting to swallow little bit better. Although still hurts. He needs to follow through with the saltwater rinses he also has the magic mouthwash that he is not using. He is not drinking enough water at times and he is already getting dehydrated. The p atient does have a PET scan scheduled soon will see the results of his therapy hopefully his stable. In the meantime he has been using the CPAP for the last 4 days. Finally was able to use it because the cough has been better. He slept for more than 10 hours the 1st night and he felt that it helped. Current settings are 8-12 APAP. His AHI was 5.3 therefore I will increase his maximum pressure from 12-13 just to see if we can improve his AHI little bit more without aggravating his irritation of the throat. If he does not tolerate the slight increase in pressure he can always call and I can decrease it again. He will follow-up in 3-4 months if he has any issues he will call for an earlier evaluation. For now he also try some benzonatate cough drops to see if this provides some relief. 10/23/2024 the patient is here for pulmonary follow-up visit. Overall he is doing better. He is trying to eat more and also has been gaining weight. Now use be careful not to gain additional weight since he is taking p.o. calories and also via the G-tube. He is going to have that assess further hopefully he can stop or decrease the amount of gastric feeding if his calorie count is reasonable. His voice is better. The patient also has been using CPAP every night. CPAP therapy has been affecting beneficial. Although he has been seen that the pressure is drastically decreased in sometimes he feels like he is not getting enough air. Will go ahead and increase the pressures at this time. In addition to that he feels like it is getting flutter with water. I did decrease the humidity. I did ask him to decrease the temperature consent can do it online. He did have a PET scan back in August 2024. No significant FDG activity of the tonsillar area where he had the mask. He does have some reactive changes though. No evidence of any pulmonary nodules or abnormal FDG activity in the chest cavity. Respiratory status is stable. He will follow-up in 6 months. If he has any issues with the change in pressures from CPAP and will call. [facility] Medical History (Updated 05/07/24 @ 20:01 by Taj Jernigan MD) Dysphagia Bleeding from mouth Tonsillar cancer Neck pain Dyspnea Elevated diaphragm WILIAM (obstructive sleep apnea) Hypogonadism in male Urgency incontinence Renal stones BPH (benign prostatic hyperplasia) Hypogonadism Family History Other CVD (cardiovascular disease) Cancer Pancreatic cancer Social History Patient Tobacco Use Status: Never used Tobacco Review of Systems Const Denies chills, Denies fatigue, Denies fever(s), Reports weight gain and Denies weight loss ENT Denies dizziness Card Denies chest pain, Denies leg edema, Denies lightheadedness, Denies palpitations, Denies dyspnea on exertion, Denies orthopnea and Denies other Resp Denies cough, Denies dyspnea on exertion and Denies wheezing GI Denies hematochezia and Denies change in stool character Musc Denies abnormal gait, Denies muscle weakness, Denies numbness, Denies radiating pain into limb and Denies tingling Skin/Breast Denies rash Neuro Denies abnormal gait, Denies dizziness, Denies numbness and Denies tingling Endo Denies fatigue and Denies palpitations Darwin/Lymph Denies lymphadenopathy Aller/Immun Denies wheezing Physical Exam Vital Signs: Last Vital Signs Pulse 54 10/23/24 14:42 BP 112/56 L 10/23/24 14:42 Pulse Ox 99 10/23/24 14:42 Oxygen Delivery Method Room Air 10/23/24 14:42 BMI result Body Mass Index 26.7 Const General: comfortable HEENT Head: Yes normocephalic Mouth: Normal oral and palatal mucosa present Teeth and gingiva: dentures Throat: Yes posterior oropharynx normal Eyes General: appearance normal, both eyes and all related structures Neck Neck: Yes trachea midline Chest Chest palpation & inspection: normal inspection of the chest Resp Effort & Inspection: normal respiratory effort Auscultation: no wheezes and diminished lung sounds Cardio Rate: regular rate Rhythm: regular rhythm Heart sounds: S1 normal heart sound present and S2 normal heart sound present Skin General skin exam: no rashes or lesions noted Extrem General: Yes no clubbing, cyanosis or edema Assessment & Plan Assessment & Plan (1) Cough: Code(s): R05.9 - Cough, unspecified Category: Medical Qualifiers: Cough type: subacute Qualified Code(s): R05.2 - Subacute cough (2) WILIAM (obstructive sleep apnea): Code(s): G47.33 - Obstructive sleep apnea (adult) (pediatric) Category: Medical (3) 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 - Disorders of diaphragm Category: Medical (4) Dyspnea: Code(s): R06.00 - Dyspnea, unspecified Category: Medical Qualifiers: Dyspnea type: dyspnea on exertion Qualified Code(s): R06.09 - Other forms of dyspnea (5) Tonsillar cancer: Code(s): C09.9 - Malignant neoplasm of tonsil, unspecified Category: Medical (6) Dysphagia: Code(s): R13.10 - Dysphagia, unspecified Category: Medical Qualifiers: Dysphagia type: oral phase Qualified Code(s): R13.11 - Dysphagia, oral phase Plan contnue APAP until better, increased 8-12-->8-13->9-15; FM continue ROVERTO as needed increase PO intake F/U 6 months Coding Level of Care Code Est Pt Level 4 (10464) Complex EM visit Add On G2211 Diagnoses Subacute cough R05.2 Cough type: subacute WILIAM (obstructive sleep apnea) G47.33 Elevated diaphragm J98.6 Dyspnea on exertion R06.09 Dyspnea type: dyspnea on exertion Tonsillar cancer C09.9 Oral phase dysphagia R13.11 Dysphagia type: oral phase Time Spent (min) 17
[2024-10-23 14:42] VITALS: BP 112/56; PULSE 54; O2SAT 99; BMI 26.7
--- OUTSIDE RECORDS SUMMARY | 2024-10-23 16:14 | XMS_ITS | Clinical Summary ---
Author Organization [facility] Address [address] [place] [address] Phone Care Team Providers Care Shift Foreman Name Role Phone Min Mckenzie MD Primary Care Provider [phone] Allergies Active Allergy Reactions Criticality Noted Date [...] Problem Noted Date Diagnosed Date Moderate malnutrition (CMS/HCC V24) 07/20/2024 Weakness 07/19/2024 Hyponatremia 07/08/2024 Failure to thrive in adult 07/07/2024 S/P cholecystectomy 07/07/2024 WILIAM on CPAP 07/07/2024 Hyperlipidemia 07/07/2024 GERD (gastroesophageal reflux disease) JULIET (generalized anxiety disorder) 07/07/2024 Decreased testosterone level 07/07/2024 Atherosclerosis of coronary artery 07/07/2024 Overview (07/07/2024): 1992 angioplasty with atherectomy. 2004 angioplasty with stent Benign prostatic hyperplasia 07/07/2024 Tonsil cancer ([facility] V24, [facility] V28) 024 Depression, major, in remission ([facility] V24) Essential hypertension 09/08/2022 Resolved Problems Problem Noted Date Diagnosed Date Resolved Date History of myocardial infarction 07/07/2024 07/07/2024 Gallstone pancreatitis 07/07/202407/07 Encounters Date Type Department Care Team Description 09/20/2024 12:30 PM EDT Treatment [facility] [address] [place] [phone] Gijroel, Leticia P, OTR/L Lymphedema of face (Primary Dx) 09/06/2024 2:30 PM EDT Treatment [facility] [address] [place] [phone] Gijroel, Leticia P, OTR/L Lymphedema of face (Primary Dx) 08/24/2024 3:00 PM EST Treatment [facility] [address] [place] [phone] Gijroel, Leticia P, OTR/L Lymphedema of face (Primary Dx) 08/16/2024 2:00 PM EST Treatment [facility] [address] [place] [phone] Giike, Leticia P, OTR/L Lymphedema of face (Primary Dx) 08/09/2024 2:30 PM EST Treatment [facility] [address] [place] [phone] Gijroel Leticia P, OTR/L Lymphedema of face (Primary Dx) 08/02/2024 12:30 PM EST Treatment [facility] [address] [place] [phone] Giike Leticia P, OTR/L Lymphedema of face (Primary Dx) 08/02/2024 Plan of Care Documentation [facility] [address] [place] [phone] from Last 3 Months Surgical History Surgery Date Site/Laterality Comments CHOLECYSTECTOMY Medical History Medical History Date Comments Cancer ([facility] V24, [facility] V28) CAD (coronary artery disease) Hypertension History of [...] care for your loved ones. For example, assistant child care teacher or elderly care for an older [...] 07/19/2024 2:33 PM EST Plan of Treatment Health Maintenance Due Date Last Done Comments Zoster Vaccines (1 of 2) 06/30/2012 05/05/2012 Colorectal Cancer Screening: Colonoscopy 05/30/2022 Depression Screening 05/30/2022 Hepatitis C Screening 05/30/2022 Medicare Annual Wellness Visit 05/30/2022 COVID-19 Vaccine ( season) 2024 07/10/2021, 01/07/2021 Influenza Vaccine (Season Ended) 2025 07/10/2021, 03/05/2020, 02/19/2019, Additional history exists Falls Risk Assessment 07/17/2025 07/17/2024 Hypertension/CHF/CAD Annual BMP Blood Test 07/20/2025 07/20/2024, 07/19/2024, 07/18/2024, Additional history exists Social Influencers of Health Screening 07/20/2025 07/20/2024 Cholesterol Screening (Lipid Panel) 07/20/2029 07/20/2024, 07/18/2024 RSV Immunization Adult Patients (1 - 1-dose 75+ series) 2032 DTaP,Tdap,and [...] age to complete this topic Meningococcal B Vaccine Aged Out No l onger eligible based on patient's age to complete [...] in neck / area of saliva glands 09/20/2024 Patient met all his goals. Has solaris head/ neck wrap , independent in HEP and self massage and has no remaining pain in sub mandible area Procedures Procedure Name Priority Date/Time Associated Diagnosis Comments BASIC METABOLIC PANEL Routine 07/20/2024 6:12 AM EST LIPID PANEL WITH REFLEX TO DIRECT LDL Routine 07/20/2024 6:12 AM EST from Last 3 Months or Most Recently Relevant to Health Maintenance Results * Lipid panel with reflex to direct LDL (07/20/2024 6:12 AM EST) Cholesterol 89 0 - 200 mg/dL LAB CHEMISTRY METHOD 07/20/2024 8:[address] [facility] Triglycerides 43 0 - 150 mg/dL LAB CHEMISTRY METHOD 07/20/2024 8:[address] [facility] HDL 50 >=40 mg/dL LAB CHEMISTRY METHOD 07/20/2024 8:[address] [facility] LDL Calculated 30 0 - 100 mg/dL LAB CHEMISTRY METHOD 07/20/2024 8:[address] [facility] VLDL Cholesterol Thomas 8.6 mg/dL LAB CHEMISTRY METHOD 07/20/2024 8:[address] [facility] Non HDL Chol. (LDL+VLDL) 39 <145 mg/dL LAB CHEMISTRY METHOD 07/20/2024 8:[address] [facility] Chol/HDL Ratio 1.8 0.0 - 4.4 LAB CHEMISTRY METHOD 07/20/2024 8:[address] [facility] Blood Venous blood specimen / Unknown Venipuncture / Unknown 07/20/2024 6:12 AM EST 07/20/2024 6:30 AM EST us Flakita Dobson NP LAB BLOOD ORDERABLES Final Res ult [facility] [address] [place] [address], [place] [phone] * (ABNORMAL) Basic metabolic panel (07/20/2024 6:12 AM EST) Sodium 133 133 - 145 mmol/L LAB CHEMISTRY METHOD 07/20/2024 7:[address] [facility] Potassium 3.8 3.5 - 5.5 mmol/L LAB CHEMISTRY METHOD 07/20/2024 7:[address] [facility] Chloride 98 96 - 110 mmol/L LAB CHEMISTRY METHOD 07/20/2024 7:[address] [facility] CO2 28 21 - 32 mmol/L LAB CHEMISTRY METHOD 07/20/2024 7:[address] [facility] Anion Gap 7 3 - 11 LAB CHEMISTRY METHOD 07/20/2024 7:[address] [facility] Glucose 84 70 - 100 mg/dL LAB CHEMISTRY METHOD 07/20/2024 7:[address] [facility] BUN 17 5 - 25 mg/dL LAB CHEMISTRY METHOD 07/20/2024 7:[address] [facility] Creatinine 0.60(L) 0.70 - 1.30 mg/dL LAB CHEMISTRY METHOD 07/20/2024 7:[address] [facility] eGFR 106 >=60 mL/min/1. 73m2 LAB CHEMISTRY METHOD 07/20/2024 7:[address] [facility] Comment:Calculation based on the??Chronic Kidney Disease Epidemiology Collaboration (CKD-EPI) equation refit??without adjustment for race. BUN/Creatinine Ratio 28.3 LAB CHEMISTRY METHOD 07/20/2024 7:[address] [facility] Calcium 8.6 8.5 - 10.5 mg/dL LAB CHEMISTRY METHOD 07/20/2024 7:[address] [facility] Blood Venous blood specimen / Unknown Venipuncture / Unknown 07/20/2024 6:12 AM EST 07/20/2024 6:30 AM EST us Flakita Dobson LPN [employer] LAB BLOOD ORDERABLES Final Res ult [facility] [place] [facility] [address] [place] [address], [place] [phone] from Last 3 Months or Most Recently Relevant to Health Maintenance Insurance [facility] Member Subscriber Plan / Payer (Ef fective 2022-Present) Name:Jessaluis m Wood Girish Relation to Subscriber:Self Name:Karispatsy Wood Stout Payer ID:[id number] Group ID:[id number] Type:Not on file Address: [address] [place] [id number] Advance Directives * Full Code - Default [...] currently active code status orders. Care Teams Shift Foreman Relationship Specialty Start Date End Date Min Mckenzie MD [address] [place] [address] PCP - General Internal Medicine 05/03/13
--- OUTSIDE RECORDS SUMMARY | 2024-10-23 16:14 | XMS_ITS | Patient Health Record ---
Author Organization [facility] Address [address] [place] [address] Care Team Providers Care Websphere Commerce Consultant Name Role Phone Min Mckenzie MD Primary Care Provider Josemanuel Tanner [phone] Allergies Allergen (clinical drug ingredient) Drug/Non Drug [...] Problem Status W/U Status Risk Notes Problem Primary osteoarthritis , right ankle and foot (M19.071) Active confirmed Plan Of Treatment Pending Test Test Name Order Date X ray : Foot, right 3V 02/18/2021 Insurance Providers Payer Name Payer Address Payer Phone Subscriber Number Group Number Insured Name Patient Relationship to Insured Coverage Start Date Coverage End Date [facility] [employer] Claims [address] [place] [id number] [phone] [id number] Wood Rios Self - patient is the insured Medical (General) History Medical History History ICD Code Cancer Depression Heart disease High blood pressure Kidney disease Reflux ( GERD) Surgical History Surgery Date(Month/Year) cancer surgery 2013
--- OUTSIDE RECORDS SUMMARY | 2024-10-23 16:14 | XMS_ITS | Encounter Summary ---
Author Organization [facility] Address [address] [place] [address] Care Team Providers Care Waste Cotton Cleaner Name Role Phone Min Mckenzie MD Primary Care Provider [phone] Encounter Details Date Type Department Care Team ([facility] st Contact Info) Description 07/20/2024 Community Care Management [facility] [address] [place] [address] Clara Pastor Social History Tobacco [...] for your loved ones. For example, children's tutor or elderly care for an older adult? [...] Assessment Author No 07/18/2024 4:16 PM EST iHral Vasquez RN * Are you blind or [...] documented in this encounter Plan of Treatment Not on file documented as of this encounter Visit Diagnoses Not on filedocumented in this encounter Care Teams Waste Cotton Cleaner Relationship Specialty Start Date End Date Min Mckenzie MD [address] [place] [address] PCP - General Internal Medicine 05/03/13 documented as of this encounter
== END 2024-10-23 15:10 | disposition home or self-care (01) ==
LOC: HO.HPS 14:41
PROVIDERS: PCP Internal Medicine; Visit Provider Hospitalist
DX: R05.2 Subacute cough (principal); G47.33 Obstructive sleep apnea (adult) (pediatric); J98.6 Disorders of diaphragm; R06.09 Other forms of dyspnea; C09.9 Malignant neoplasm of tonsil, unspecified; R13.11 Dysphagia, oral phase
CPT/HCPCS: 99214; G2211

== ENCOUNTER 2024-10-23 14:41 | Outpatient (REF) | payer OTHER, SELFPAY ==
--- OUTSIDE RECORDS SUMMARY | 2024-10-23 16:46 | XMS_ITS | Encounter Summary ---
Author Organization [facility] Address [address] [place] [address] Care Team Providers Care Fixed Capital Clerk Name Role Phone Min Mckenzie Primary Care Provider Deny Brink MD Unavailable [phone] CycRomel baires NP Unavailable [phone] Encounter Details Date Type Department Care Team Description 07/23/2020 SCAN Medical Records [address] [place] [id number] Wood Ordoñez MD Social History Tobacco Use Types Packs/Day Years Used Date Smoking Tobacco: Never Smokeless Tobacco: Never Alcohol Use Standard Drinks/Week Comments Yes 0 (1 standard drink = 0.6 oz pur e alcohol) occ Physical Activity Answer Date Recorded On average, how many days pe r week do you engage in moderate to strenuous exercise (like walking fast, running, jogging, dancing, swimming, biking, or other activities that cause a light or heavy sweat)? 0 days 07/17/2020 On average, how many minutes do you engage in exercise at this level? Not asked Sex Assigned at Date Recorded Not on file documented as of this encounter Plan of Treatment Not on file documented as of this encounter Procedures Procedure Name Priority Date/Time Associated Diagnosis Comments EMG INTERNAL/EXTERNAL Routine 07/23/2020 documented in this encounter Results * EMG INTERNAL/EXTERNAL (07/23/2020) Provider Abstract PHYSIATRY documented in this encounter Visit Diagnoses Not on filedocumented in this encounter Care Teams Fixed Capital Clerk Relationship Specialty Start Date End Date Min Mckenzie PCP - General Internal Medicine 07/26/17 Deny Cohen MD Specialist Cardiology 07/17/20 Romel Meyers NP Nurse Practitioner Cardiology 09/15/21 documented as of this encounter
--- OUTSIDE RECORDS SUMMARY | 2024-10-23 16:46 | XMS_ITS | Encounter Summary ---
Author Organization [facility] Address [address] [place] [address] Care Team Providers Care Sales Product Specialist Name Role Phone Min Mckenzie MD Primary Care Provider [phone] Encounter Details Date Type Department Care Team ([facility] st Contact Info) Description 07/20/2024 Community Care Management [facility] [address] [place] [address] Clara Pastor Social History Tobacco [...] for your loved ones. For example, children's court magistrate or elderly care for an older adult? [...] on filedocumented in this encounter Care Teams Sales Product Specialist Relationship Specialty Start Date End Date Min Mckenzie MD [address] [place] [address] PCP - General Internal Medicine 05/03/13 documented as of this encounter
--- OUTSIDE RECORDS SUMMARY | 2024-10-23 16:46 | XMS_ITS | Clinical Summary ---
Author Organization [facility] Address [address] [facility] [place] [address] Care Team Providers Care Water And Sewer Systems Supervisor Name Role Phone Min Mckenzie Primary Care Provider Deny Brink MD Unavailable [phone] CyczRomel NP Unavailable [phone] Allergies Active Allergy Reactions Severity Noted Date Comments Iv Contrast Dye 07/26/2017 Medications Medication Sig Dispensed Refills Start Date End Date Status pantoprazole (PROTONIX) 40 MG tablet Take 40 mg by mouth daily. 0 Active Testosterone 20.25 MG/1.25GM (1.62%) Gel Place onto the skin. 0 Active aspirin 81 MG tablet Take 81 mg by mouth daily. 0 Active atorvastatin (LIPITOR) 40 MG tablet Take 40 mg by mouth daily. 0 Active Mcdowell-3 Fatty Acids (FISH OIL) 1000 MG Cap Take 1 Cap by mouth daily. 0 Active gemfibrozil (LOPID) 600 MG tablet Take 600 mg by mouth 2 times daily (before meals). 0 Active metoprolol (TOPROL-XL) 50 MG 24 hr tablet Take 50 mg by mouth daily. 0 Active Multiple Vitamins-Minerals (MULTIVITAMIN ADULT) Tab Take by mouth. 0 Active nitroGLYCERIN (NITROSTAT) 0.4 MG SL tabletIndications:CAD in [place] artery Place 1 Tablet under the tongue every 5 minutes as needed for Chest pain. 20 Tablet 11 09/15/2021 Active losartan (COZAAR) 50 MG tabletIndications:Esse ntial hypertension Take 1 Tablet by mouth daily for 360 days. 90 Tablet 3 09/08/2022 Active Magnesium Oxide -Mg Supplement 400 (240 Mg) MG TabIndications:CAD in [place] artery TAKE 1 TABLET BY MOUTH EVERY DAY 90 Tablet 0 12/14/2023 Active Active Problems Problem Noted Date Essential hypertension 09/08/2022 Vasovagal syncope 09/15/2021 Obesity 09/15/2021 CAD in [place] artery 07/17/2020 Obstructive sleep apnea syndrome 018 Family History Medical History Relation Name Comments NM Brother NM Mother Relation Name Status Comments Brother Alive [...] Assigned at Date Recorded Not on file Last Filed Vital Signs Vital Sign Reading Time Taken Comments Blood Pressure 120/82 02/15/2024 9:12 AM EDT Pulse 59 02/15/2024 9:12 AM EDT Temperature 35.8 ??C (96.4 ??F) 01/02/2022 8:18 AM ED T Respiratory Rate 20 01/02/2022 8:18 AM EDT Oxygen Saturation 97% 02/15/2024 9:12 AM EDT Inhaled Oxygen Concentration - - Weight 93.3 kg (205 lb 9.6 oz) 02/15/2024 9:12 A M EDT Height 175.3 cm (5' 9 ) 02/15/2024 9:12 AM EDT Body Mass Index 30.36 02/15/2024 9:12 AM EDT Plan of Treatment Health Maintenance Due Date Last Done Comments HEPATITIS C SCREENING 09/19/1975 CHOLESTEROL SCREENING 1977 COLON CANCER SCREENING 09/19/2007 SHINGLES VACCINE (1 of 2) 09/19/2007 PNEUMOCOCCAL VACCINE (1 - PCV) 2022 Covid-19 Vaccine (2 - 2022-2 4 season) 2024 07/10/2021 BMI CHECK/ADVISE 06/21/2024 02/15/2024, , 01/02/2022, Additional history exists INFLUENZA (Season Ended) 2025 02/28/2015 DTAP/TDAP/TD (3 - Td or Tdap) 11/29/2028 11/29/2018, 08/13/2009 Care Teams Water And Sewer Systems Supervisor Relationship Specialty Start Date End Date Min Mckenzie PCP - General Internal Medicine 07/26/17 Deny Cohen MD Specialist Cardiology 07/17/20 Romel Meyers NP Nurse Practitioner Cardiology 09/15/21
--- OUTSIDE RECORDS SUMMARY | 2024-10-23 16:46 | XMS_ITS | Encounter Summary ---
Author Organization [facility] Address [address] [place] [address] Care Team Providers Care Children'S Choir Director Name Role Phone Min Mckenzie Primary Care Provider Deny Brink MD Unavailable [phone] Romel Meyers NP Unavailable [phone] Encounter Details Date Type Department Care Team Description 09/08/2023 Container Washer Report Medical Records [address] [place] [id number] Min Mckenzie Social History Tobacco Use Types Packs/Day Years [...] on filedocumented in this encounter Care Teams Children'S Choir Director Relationship Specialty Start Date End Date Min Mckenzie PCP - General Internal Medicine 07/26/17 Deny Cohen MD Specialist Cardiology 07/17/20 Romel Meyers NP Nurse Practitioner Cardiology 09/15/21 documented as of this encounter
--- OUTSIDE RECORDS SUMMARY | 2024-10-23 16:46 | XMS_ITS | Encounter Summary ---
Author Organization [facility] Address [address] [place] [address] Care Team Providers Care Hydroelectric Machinery Mechanic Name Role Phone Min Mckenzie Primary Care Provider Deny Brink MD Unavailable CyczRomel NP Unavailable [phone] Encounter Details Date Type Department Care Team Description 09/16/2023 SCAN Medical Records [address] [place] [id number] Min Mckenzie Social History Tobacco Use Types [...] Procedure Name Priority Date/Time Associated Diagnosis Comments OUTSIDE LAB Routine 09/16/2023 documented in this encounter Results * OUTSIDE LAB (09/16/2023) Provider Default LAB documented in this encounter Visit Diagnoses Not on filedocumented in this encounter Care Teams Hydroelectric Machinery Mechanic Relationship Specialty Start Date End Date Min Mckenzie PCP - General Internal Medicine 07/26/17 Deny Cohen MD Specialist Cardiology 07/17/20 Romel Meyers NP Nurse Practitioner Cardiology 09/15/21 documented as of this encounter
--- OUTSIDE RECORDS SUMMARY | 2024-10-23 16:46 | XMS_ITS | Encounter Summary ---
Author Organization [facility] Address [address] [place] [address] Care Team Providers Care Occupational Therapy Manager Name Role Phone Min Mckenzie Primary Care Provider Deny Brink MD Unavailable [phone] Romel Meyers NP Unavailable [phone] Encounter Details Date Type Department Care Team Description 08/16/2019 SCAN Medical Records [address] [place] [address] Suzanen García Social History Tobacco Use Types Packs/Day Years [...] Name Priority Date/Time Associated Diagnosis Comments OUTSIDE CT Routine 08/16/2019 documented in this encounter Results * OUTSIDE CT (08/16/2019) Provider Abstract RADIOLOGY documented in this encounter Visit Diagnoses Not on filedocumented in this encounter Care Teams Occupational Therapy Manager Relationship Specialty Start Date End Date Min Mckenzie PCP - General Internal Medicine 07/26/17 Deny Cohen MD Specialist Cardiology 07/17/20 Romel Meyers NP Nurse Practitioner Cardiology 09/15/21 documented as of this encounter
--- OUTSIDE RECORDS SUMMARY | 2024-10-23 16:46 | XMS_ITS | Clinical Summary ---
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, [facility] V28) 024 Depression, major, in remission ([facility] V24) Essential hypertension 09/08/2022 Resolved Problems Problem Noted Date Diagnosed Date Resolved Date History of myocardial infarction 07/07/2024 07/07/2024 Gallstone pancreatitis 07/07/202407/07 Encounters Date Type Department Care Team Description 09/20/2024 12:30 PM EDT Treatment [facility] [address] [place] [phone] Gijroel, Leticia P, OTR/L Lymphedema of face (Primary Dx) 09/06/2024 2:30 PM EDT Treatment [facility] [address] [place] [phone] Gijroel, Leticia P, OTR/L Lymphedema of face (Primary Dx) 08/24/2024 3:00 PM EST Treatment [facility] [address] [place] [phone] Gijroel, Leticia P, OTR/L Lymphedema of face (Primary Dx) 08/16/2024 2:00 PM EST Treatment [facility] [address] [place] [phone] Giike, Leticia P, OTR/L Lymphedema of face (Primary Dx) 08/09/2024 2:30 PM EST Treatment [facility] [address] [place] [phone] Gijroel Leticia P, OTR/L Lymphedema of face (Primary Dx) 08/02/2024 12:30 PM EST Treatment [facility] [address] [place] [phone] Giike Leticia P, OTR/L Lymphedema of face (Primary Dx) 08/02/2024 Plan of Care Documentation [facility] [address] [place] [phone] from Last 3 Months Surgical History Surgery Date Site/Laterality Comments CHOLECYSTECTOMY Medical History Medical History Date Comments Cancer ([facility] V24, [facility] V28) CAD (coronary artery disease) Hypertension History [...] your loved ones. For example, child care group leader or elderly care for an older adult? [...] mg/dL LAB CHEMISTRY METHOD 07/20/2024 8:02 AM [facility] Triglycerides 43 0 - 150 mg/dL LAB CHEMISTRY METHOD 07/20/2024 8:02 AM [facility] HDL 50 >=40 mg/dL LAB CHEMISTRY METHOD 07/20/2024 8:02 AM [facility] LDL Calculated 30 0 - 100 mg/dL LAB CHEMISTRY METHOD 07/20/2024 8:02 AM [facility] VLDL Cholesterol Thomas 8.6 mg/dL LAB CHEMISTRY METHOD 07/20/2024 8:02 AM [facility] Non HDL Chol. (LDL+VLDL) 39 <145 mg/dL LAB CHEMISTRY METHOD 07/20/2024 8:02 AM [facility] Chol/HDL Ratio 1.8 0.0 - 4.4 LAB CHEMISTRY METHOD 07/20/2024 8:02 AM [facility] Blood Venous blood specimen / Unknown Venipuncture / Unknown 07/20/2024 6:12 AM EST 07/20/2024 6:30 AM EST us Flakita Dobson NP LAB BLOOD ORDERABLES Final Res ult [facility] [address] [place] [address], [place] [phone] * (ABNORMAL) Basic metabolic panel (07/20/2024 6:12 AM EST) Sodium 133 133 - 145 mmol/L LAB CHEMISTRY METHOD 07/20/2024 7:20 AM [facility] Potassium 3.8 3.5 - 5.5 mmol/L LAB CHEMISTRY METHOD 07/20/2024 7:20 AM [facility] Chloride 98 96 - 110 mmol/L LAB CHEMISTRY METHOD 07/20/2024 7:20 AM [facility] CO2 28 21 - 32 mmol/L LAB CHEMISTRY METHOD 07/20/2024 7:20 AM [facility] Anion Gap 7 3 - 11 LAB CHEMISTRY METHOD 07/20/2024 7:20 AM [facility] Glucose 84 70 - 100 mg/dL LAB CHEMISTRY METHOD 07/20/2024 7:20 AM [facility] BUN 17 5 - 25 mg/dL LAB CHEMISTRY METHOD 07/20/2024 7:20 AM [facility] Creatinine 0.60(L) 0.70 - 1.30 mg/dL LAB CHEMISTRY METHOD 07/20/2024 7:20 AM [facility] eGFR 106 >=60 mL/min/1. 73m2 LAB CHEMISTRY METHOD 07/20/2024 7:20 AM [facility] Comment:Calculation based on the??Chronic Kidney Disease Epidemiology Collaboration (CKD-EPI) equation refit??without adjustment for race. BUN/Creatinine Ratio 28.3 LAB CHEMISTRY METHOD 07/20/2024 7:20 AM [facility] Calcium 8.6 8.5 - 10.5 mg/dL LAB CHEMISTRY METHOD 07/20/2024 7:20 AM [facility] Blood Venous blood specimen / Unknown Venipuncture / Unknown 07/20/2024 6:12 AM EST 07/20/2024 6:30 AM EST us Flakita Dobson LEGAL BILLING COORDINATOR LAB BLOOD ORDERABLES Final Res ult [facility] [place] [facility] [address] [place] [address], [place] [phone] from Last 3 Months or Most Recently Relevant to Health Maintenance Insurance [facility]IC[facility] Member Subscriber Plan / Payer (Ef fective 2022-Present) Name:Jessaluis m Wood Girish Relation to Subscriber:Self Name:Karispatsy Wood Stout Payer ID:[id number] Group ID:[id number] Type:Not on file Address: [address] [place] [id number] Advance Directives * Full Code - Default [...] currently active code status orders. Care Teams Hr Coordinator Relationship Specialty Start Date End Date Min Mckenzie MD [address] [place] [address] PCP - General Internal Medicine 05/03/13
--- OUTSIDE RECORDS SUMMARY | 2024-10-23 16:46 | XMS_ITS | Encounter Summary ---
Author Organization [facility] Address [address] [place] [address] Care Team Providers Care It Systems Analyst Name Role Phone Min Mckenzie Primary Care Provider Deny Brink MD Unavailable [phone] CyczRomel NP Unavailable [phone] Reason for Visit * Reason Onset Date Comments DME Request 11/17/2017 Encounter Details Date Type Department Care Team Description 11/17/2017 Telephone Pulmonology - [address] [place] [address] Taj Jernigan MD DME Request Social History Tobacco Use Types Packs/Day Years [...] on file documented as of this encounter Miscellaneous Notes * Telephone Encounter - Shannon Kwong - 11/17/2017 1:45 PM EDT Pts spouse is calling requesting an order for CPA supplies be sent to [employer]. Was a previous BHIR pt. Please send last OV also. Thanks. documented in this encounter Plan of Treatment Not on file documented as of this encounter Visit Diagnoses Not on filedocumented in this encounter Care Teams It Systems Analyst Relationship Specialty Start Date End Date Min Mckenzie PCP - General Internal Medicine 07/26/17 Deny Cohen MD Specialist Cardiology 07/17/20 Romel Meyers NP Nurse Practitioner Cardiology 09/15/21 documented as of this encounter
--- OUTSIDE RECORDS SUMMARY | 2024-10-23 16:46 | XMS_ITS | Encounter Summary ---
Author Organization [facility] Address [address] [place] [address] Care Team Providers Care Fisher Swordfish Name Role Phone Min Mckenzie Primary Care Provider Deny Brink MD Unavailable [phone] Romel Meyers NP Unavailable [phone] Encounter Details Date Type Department Care Team Description 07/28/2017 Release of Information Medical Records [address] [place] [id number] Abstract, Provider Social History Tobacco Use Types Packs/Day Years [...] on filedocumented in this encounter Care Teams Fisher Swordfish Relationship Specialty Start Date End Date Min Mckenzie PCP - General Internal Medicine 07/26/17 Deny Cohen MD Specialist Cardiology 07/17/20 Romel Meyers NP Nurse Practitioner Cardiology 09/15/21 documented as of this encounter
--- OUTSIDE RECORDS SUMMARY | 2024-10-23 16:46 | XMS_ITS | Encounter Summary ---
Author Organization [facility] Address [address] [place] [address] Care Team Providers Care Global Compensation Manager Name Role Phone Min Mckenzie Primary Care Provider Deny Brink MD Unavailable [phone] Romel Meyers NP Unavailable [phone] Reason for Visit * Reason Onset Date Comments Follow-up Appt Unavailable 11/11/2022 Trans cathryn of Care Encounter Details Date Type Department Care Team Description 11/11/2022 Telephone Pulmonology - [facility] [address] [facility] [address] [place] [address] Karen Warner MD [address] [place] [phone] Follow-up Appt Unavailable (Transfer of Care) Social History Tobacco Use Types Packs/Day Years [...] encounter Miscellaneous Notes * Telephone Encounter - Devi Daly - 11/11/2022 11:50 AM EDT Patient change provider for pulmo to Dr. Jernigan. documented in this encounter Plan of Treatment Not on file documented as of this encounter Visit Diagnoses Not on filedocumented in this encounter Care Teams Global Compensation Manager Relationship Specialty Start Date End Date Min Mckenzie PCP - General Internal Medicine 07/26/17 Deny Cohen MD Specialist Cardiology 07/17/20 Romel Meyers NP Nurse Practitioner Cardiology 09/15/21 documented as of this encounter
--- OUTSIDE RECORDS SUMMARY | 2024-10-23 16:46 | XMS_ITS | Encounter Summary ---
Author Organization [facility] Address [address] [place] [address] Care Team Providers Care Registered Nurse Behavioral Health Name Role Phone Mni Mckenzie Primary Care Provider Deny Brink MD Unavailable [phone] Romel Meyers NP Unavailable [phone] Encounter Details Date Type Department Care Team Description 07/10/2021 SCAN Medical Records [address] [place] [id number] Abstract, Provider Social History Tobacco Use Types [...] Date/Time Associated Diagnosis Comments OUTSIDE LAB Routine 07/10/2021 documented in this encounter Results * OUTSIDE LAB (07/10/2021) Provider Abstract LAB documented in this encounter Visit Diagnoses Not on filedocumented in this encounter Care Teams Registered Nurse Behavioral Health Relationship Specialty Start Date End Date Min Mckenzie PCP - General Internal Medicine 07/26/17 Deny Cohen MD Specialist Cardiology 07/17/20 Romel Meyers NP Nurse Practitioner Cardiology 09/15/21 documented as of this encounter
--- OUTSIDE RECORDS SUMMARY | 2024-10-23 16:46 | XMS_ITS | Encounter Summary ---
Author Organization [facility] Address [address] [place] [address] Care Team Providers Care Trolley Wire Installer Name Role Phone Min Mckenzie Primary Care Provider Deny Brink MD Unavailable [phone] CyczRomel NP Unavailable [phone] Encounter Details Date Type Department Care Team Description 03/20/2023 Hospital Medical Records [address] [place] [address] Social History Tobacco Use Types Packs/Day Years [...] Name Priority Date/Time Associated Diagnosis Comments OUTSIDE PLAIN FILM Routine 03/21/2023 OUTSIDE EKG Routine 03/20/2023 documented in this encounter Results * OUTSIDE PLAIN FILM (03/21/2023) Provider Default RADIOLOGY * OUTSIDE EKG (03/20/2023) Provider Default CARDIOLOGY documented in this encounter Visit Diagnoses Not on filedocumented in this encounter Care Teams Trolley Wire Installer Relationship Specialty Start Date End Date Min Mckenzie PCP - General Internal Medicine 07/26/17 Deny Cohen MD Specialist Cardiology 07/17/20 Romel Meyers NP Nurse Practitioner Cardiology 09/15/21 documented as of this encounter
--- OUTSIDE RECORDS SUMMARY | 2024-10-23 16:46 | XMS_ITS | Encounter Summary ---
Author Organization [facility] Address [address] [place] [address] Care Team Providers Care Senior Firewall Engineer Name Role Phone Min Mckenzie Primary Care Provider Dane e Deny Cohen MD Unavailable [phone] Romel Meyers NP Unavailable [phone] Reason for Visit * Reason Comments E-prescribe Rx Request Encounter Details Date Type Department Care Team Description 12/13/2023 Refill Cardio [facility] [address] [place] [address] [address] [place] [address] Deny Cohen MD [address] [place] [address] [id number] E-prescribe Rx Request Social History Tobacco Use Types Packs/Day [...] encounter Miscellaneous Notes * Telephone Encounter - Constance Ashby C.M.A. - 12/14/2023 8:53 AM EDT Lien 09/10 Upcv 02/15/24 documented in this encounter Plan of Treatment Not on file documented as of this encounter Visit Diagnoses Diagnosis CAD in [place] artery Coronary atherosclerosis of [place] coronary artery documented in this encounter Care Teams Senior Firewall Engineer Relationship Specialty Start Date End Date Min Mckenzie PCP - General Internal Medicine 07/26/17 Deny Cohen MD Specialist Cardiology 07/17/20 Romel Meyers NP Nurse Practitioner Cardiology 09/15/21 documented as of this encounter
[2024-10-23 17:11] LABS: Hemoglobin 13.3 g/dl (14.0-18.0); Mean Corpuscular HGB Conc 34.1 g/dl (31.0-36.0); Mean Corpuscular Volume 93.8 fL (80.0-98.0); Mean Platelet Volume 9.7 fL (9.4-12.4); Platelet Count 109 X10*3/uL (160-400); Red Blood Count 4.16 X10*6/uL (4.60-5.80); Red Cell Distribution Width 12.7 % (11.0-16.0); White Blood Count 5.2 X10*3/uL (4.8-10.8)
[2024-10-26 16:18] LABS: Testosterone, Total 490 ng/dL (250-1100)
== END 2024-10-23 14:42 | disposition home or self-care (01) ==
LOC: HO.LAB 14:41
PROVIDERS: PCP Internal Medicine; Visit Provider Urology
DX: J44.9 Chronic obstructive pulmonary disease, unspecified (principal); R05.2 Subacute cough; E29.1 Testicular hypofunction; Z12.5 Encounter for screening for malignant neoplasm of prostate; R13.11 Dysphagia, oral phase; C09.9 Malignant neoplasm of tonsil, unspecified; R06.09 Other forms of dyspnea; J98.6 Disorders of diaphragm; G47.33 Obstructive sleep apnea (adult) (pediatric)
CPT/HCPCS: 36415; 84153; 84403; 85027; 99212

== ENCOUNTER 2024-11-22 09:07 | Outpatient (REF) | payer OTHER, SELFPAY | END 2024-11-22 09:08 | disposition home or self-care (01) | LOC: HO.LAB 09:07 | PROVIDERS: PCP Internal Medicine; Visit Provider Urology | DX: N39.0 Urinary tract infection, site not specified (principal); N52.9 Male erectile dysfunction, unspecified; E29.1 Testicular hypofunction; N20.0 Calculus of kidney; N40.0 Benign prostatic hyperplasia without lower urinary tract symptoms; Z13.9 Encounter for screening, unspecified | CPT/HCPCS: 81003; 87086; 87088; 87186; 99212 ==

== ENCOUNTER 2024-11-22 09:07 | Outpatient (AMB) | payer OTHER, SELFPAY ==
--- NOTE | 2024-11-22 09:13 | MHC.OFFVIS ---
Intake Visit Reasons: follow up/labs Intake Note: Patient is present for LABS F/U Urology Medication:TESTOSTERONE Antibiotic Allergy:NONE Blood Thinner:NONE Lockstitch Shoulder Joiner Required: No Allergies Iodinated Contrast Media [IV Dye, Iodine Containing] Allergy (Intermediate, Verified 11/22/24 09:14) HIVES IV contrast Allergy (Unknown, Uncoded 11/22/24 09:14) rash HPI Comments Details: Wood is a pleasant male. He is seen for the following urologic conditions - hypogonadism - nephrolithiasis - lower urinary tract symptoms Six month follow-up labs Continue good response to AndroGel Had stopped during radiation and chemotherapy Encouraged him to continue Concerned about urine smell in concentration UA today - positive leukocytes, positive nitrites - treat 7 days antibiotics Lower urinary tract symptoms Progressive urinary frequency and urgency Tamsulosin 0.4 mg stone Hypogonadism Longstanding Prior treatment for rectal cancer that involved radiation Current therapy AndroGel 2 pumps daily Laboratories - 01/08 T 480, PSA 0.16, 08/12 T 460 P 0.2, 08/13 T494 PSA 0.34. 01/10 314 60 0.44, 08/14 615 0.5 48, 04/13 T 633 0.5, 11/12 490 1.2 39 Nephrolithiasis History of stones Prior ultrasound with simple cysts Imaging - 07/13 renal ultrasound bilateral cysts, 2 mm stone left side Continue with encouragement of lemon hydration therapy Erectile dysfunction Good response to Viagra Continue periodic surveillance [facility] Medical History (Updated 11/22/24 @ 09:56 by Norman Winter MD) Dysphagia Bleeding from mouth Tonsillar cancer Neck pain Dyspnea Elevated diaphragm WILIAM (obstructive sleep apnea) Hypogonadism in male Urgency incontinence Renal stones BPH (benign prostatic hyperplasia) Hypogonadism Family History Other CVD (cardiovascular disease) Cancer Pancreatic cancer Social History Patient Tobacco Use Status: Never used Tobacco Review of Systems Const Denies chills and Denies fever(s) Card Reports no additional complaints and Denies syncope Resp Denies cough GI Denies abdominal pain and Denies heartburn Reports as per HPI and Denies change in libido Neuro Denies syncope Psych Denies change in libido Endo Denies change in libido Physical Exam Const General: cooperative, healthy appearing, comfortable and no acute distress Orientation/consciousness: patient oriented x3 HEENT Face and sinus: Yes normal facial exam Mouth: moist mucous membranes Neck Neck: Yes normal visual inspection, Yes full ROM and Yes trachea midline Chest Chest palpation & inspection: normal inspection of the chest Resp Effort & Inspection: normal respiratory effort, able to speak in complete sentences and no respiratory distress GI Inspection: Yes normal to inspection Back/Spine/Pelvis Cervical Spine: normal cervical lordosis Thoracic/Lumbar Spine: thoracic and lumbar spine normal to inspection Skin General skin exam: no rashes or lesions noted Neuro General: patient oriented x3, gait normal, tone normal and moves all extremities Extrem General: Yes normal to inspection and Yes capillary refill normal Assessment & Plan Assessment & Plan (1) Hypogonadism: Category: Medical (2) Erectile dysfunction: Code(s): N52.9 - Male erectile dysfunction, unspecified Category: Medical (3) Chronic UTI (urinary tract infection): Code(s): N39.0 - Urinary tract infection, site not specified Category: Medical Plan Six-month follow-up lab work Orders: Orders Prostate Specific Antigen 6 Months E29.1 - Testicular hypofunction Testosterone, Total 6 Months E29.1 - Testicular hypofunction Complete Blood Count no Diff 6 Months E29.1 - Testicular hypofunction Medications: New levofloxacin 500 mg PO DAILY 7 tabs 0RF 7 days E29.1 - Testicular hypofunction Refilled testosterone apply 2 pumps over max area of EACH upper arm and shoulder 2 pumps topical DAILY 75 grams 5RF 28 days E29.1 - Testicular hypofunction, R79.89 - Other specified abnormal findings of blood chemistry Patient Instructions: This note is constructed using voice recognition software. While every effort has been made to ensure accuracy rn endocrinology errors may have been included. Imaging studies, laboratory and physical exam results were discussed and reviewed in detail. No major barriers to patient understanding were identified. An opportunity to ask questions regarding the treatment plan was provided. All questions were answered. The patient expressed understanding and agreement with the above treatment plan. The patient is aware they should contact our office by phone for worsening of their current condition or the appearance of new urologic symptoms. Compliance is encouraged with any medications and followup testing that is ordered. It is a privilege to participate in the urologic care of your patient. If you have any questions or concerns regarding treatment for the above conditions, or other urologic issues, please do not hesitate to contact me. The office telephone contact is [phone]. Sincerely, Dr Norman Winter MD, [facility] - Urology Compassionate Specialist Care for the Genitourinary System Coding Level of Care Code Est Pt Level 4 (59716) Diagnoses Hypogonadism Erectile dysfunction N52.9 Chronic UTI (urinary tract infection) N39.0
== END 2024-11-22 09:59 | disposition home or self-care (01) ==
LOC: HO.HUSH 09:12
PROVIDERS: PCP Internal Medicine; Visit Provider Urology
DX: Z13.9 Encounter for screening, unspecified (principal)
CPT/HCPCS: 99214

== ENCOUNTER 2025-05-04 14:36 | Outpatient (REF) | payer MEDICARE, MEDICAID, SELFPAY ==
[2025-05-04 16:23] LABS: Hematocrit 41.9 % (42.0-52.0); Hemoglobin 14.4 g/dl (14.0-18.0); Mean Corpuscular HGB Conc 34.4 g/dl (31.0-36.0); Mean Corpuscular Hemoglobin 32.1 pg (27.0-33.0); Mean Corpuscular Volume 93.3 fL (80.0-98.0); NRBC Abs Auto 0.000 X10*3/uL (0.0-0.012); NRBC Pct Auto 0.0 /100WBC (0.0-0.2); Platelet Count 132 X10*3/uL (160-400); Red Blood Count 4.49 X10*6/uL (4.60-5.80); White Blood Count 5.7 X10*3/uL (4.8-10.8)
[2025-05-04 17:01] LABS: Prostate Specific Antigen 0.55 ng/mL (<0.05-4.0)
== END 2025-05-04 14:37 | disposition home or self-care (01) ==
LOC: HO.LAB 14:36
PROVIDERS: PCP Internal Medicine; Visit Provider Urology
DX: J44.9 Chronic obstructive pulmonary disease, unspecified (principal); J98.6 Disorders of diaphragm; G47.33 Obstructive sleep apnea (adult) (pediatric); E29.1 Testicular hypofunction; C09.9 Malignant neoplasm of tonsil, unspecified; R13.11 Dysphagia, oral phase; Z12.5 Encounter for screening for malignant neoplasm of prostate
CPT/HCPCS: 36415; 84153; 84403; 85027; 99212

== ENCOUNTER 2025-05-04 14:36 | Outpatient (AMB) | payer MEDICARE, MEDICAID, SELFPAY ==
[2025-05-04 14:42] VITALS: BP 104/62; PULSE 56; O2SAT 97; BMI 26.6
--- NOTE | 2025-05-04 14:42 | MHC.OFFVIS ---
Vital Signs 05/04/25 14:42 Height 5 ft 9 in Weight 180 lb BMI 26.6 BP 104/62 Blood Pressure Location Rt brachial Position Sitting Pulse 56 Pulse Source Pulse Oximeter Pulse Oximetry (%) 97 Oxygen Delivery Method Room Air Intake Visit Reasons: Subacute cough Allergies Iodinated Contrast Media (IV Dye, Iodine Containing) Allergy (Intermediate, Verified 11/22/24 09:14) HIVES IV contrast Allergy (Unknown, Uncoded 11/22/24 09:14) rash HPI Comments Details: The patient is a 69-year-old gentleman with a known history of sleep apnea on CPAP for many years. He has had up to 3 machines. The therapy has been affecting beneficial. He does use a fullface mask and this is comfortable for him. He does use it for more than 4 hours a night. He was previously getting it through [employer]. Will go ahead and request a download from his [employer] company, [employer] and will send a prescription also for supplies. The patient does complaint of some dyspnea on exertion. Usually when going up a flight as stairs or up at incline in the [id number] severity. We did review his last chest x-ray that was from December 2021 done at [facility]. It appears that he has a moderately elevated right hemidiaphragm resulting in some atelectasis in that area. The x-ray was not compare to there is no history. On further questioning he did have a serious accident with on a heavy machinery where he injured that lower chest area with the machinery. This could be secondary to that. Although is not clear at this moment. Will go ahead and request the chest x-ray. If is still unclear of for looks worse than before we can also consider getting a CAT scan some PFTs. 12/30/2022 the patient is here for a pulmonary follow-up visit. Since we last spoke the patient states that he has been having some hemoptysis. Has been happening for the last few months. It started to settle down. He has not seen as frequent episodes in the blood appears to be darker. It is typically mixed in with saliva. Denies any epistaxis. He was evaluated by his primary care doctor initially with a chest x-ray and subsequently with a CT scan of the chest done at [facility]. I personally viewed. Again, he has the right hemidiaphragm elevated likely secondary to trauma. He does have atelectasis in that area. Difficult to assess that area since is abnormal. No other findings of any parenchymal disease or alveolar hemorrhage. Explained to him that the most common reason for coughing up blood is bronchitis. It could also be a posterior nasopharynx bleeding episode that is not resulting in any significant epistaxis. Either way will go ahead and treat him with doxycycline for the possibility of a smoldering respiratory infection causing some bleeding. However, if the patient is no better and continues having the blood or if he gets worse will go ahead and plan for bronchoscopy to better address the airways. The patient has been using his CPAP. I did download the machine. His AHI is down 0.7. He does use it about 9 hours a night. The therapy has been affecting beneficial. He is to continue using it as prescribed. He was asking about the hypoglossal nerve stimulator. I do not advise it for him. At this point the patient will follow-up in 2-3 months or sooner if he starts developing worsening hemoptysis again plan for bronchoscopy. 03/17/2023 the patient is here for a pulmonary sick visit. Apparently he was hospitalized recently after developing severe abdominal discomfort and found to have a perforated gallbladder. The patient did require surgery. He was hospitalized at [facility] for period of time. He was on oxygen while at [facility]. He was given antibiotics and the patient was subsequently discharged. Still having some shortness of breath with activity. Still not feeling completely strong. In addition to that has had this worsening cough and persistent cough that has been bothering him day and night. Typically the cough is nonproductive. On examination he does have some expiratory wheezing. Explained to him that he may have had some micro aspirations relating to aspiration related reactive airways disease and inflammatory changes. The patient did receive a nebulizer treatment in the office with improvement in respiratory symptoms. His cough subsided significantly. He already completed multiple courses of antibiotics. In addition to that will try to avoid prednisone in view of his recent surgery to allow good healing. However, the patient's symptoms worsen he will call and I will send him additional medications. For now will keep him on a short-acting beta agonist that he can use as needed. also to note, during the office visit we did go for a walking oximetry. The patient has pulse ox with activity range around 92-92%. The patient is still not his baseline but he does not qualify for oxygen. We talked about the importance of deep breathing and walking to try to further expand his lungs and improve his lung capacity. 06/22/2023 the patient is here for a follow-up visit. Since we last spoke he was rehospitalized after having more complications due to the perforated gallbladder. He states he required multiple procedures and currently being followed closely by his surgeons. He has been using the CPAP. The CPAP therapy continues to be affecting beneficial. He even use it while in hospital. His major complaints at this point is that he has had some episodic hemoptysis. Sometimes is clear mucus and sometimes he notices that the blood. Seems like it has been better for the last few days. I did ask him about any bleeding elsewhere he denies any epistaxis and denies any bleeding from any other orifice. The blood appears to be bright red when it does come out. The patient did cough in the office but is mucus was clear without any specks of blood which is reassuring. His exam is also reassuring. I did also having undergo a chest x-ray demonstrating no acute disease. 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 The patient will monitor closely his symptoms if the hemoptysis returns or worsens he will call the office for an earlier assessment. Currently he is not on any blood thinners. 10/18/2023 the patient is here for pulmonary follow-up visit. He is still having issues after his hospitalization at [facility]. Still having episodes of hemoptysis. The patient complains of a sore throat. Hurts in some areas in the neck area. He is concerned after a lot of manipulations with the 80 to when he was intubated in the ICU and is also concerned with the fact that his father of head and neck cancer. I did during exam no evidence of any significant abnormalities noted in the posterior pharynx or in the gingiva to explain the bleeding. No evidence of any epistaxis. Will go ahead and request a CT scan of the neck to better address the neck pain in addition to the hemoptysis. We also talked about considering bronchoscopy to better evaluate that area as well. Will wait after the CT scan to perform bronchoscopy if he is still having episodes of bleeding. Will continue with the current respiratory therapy from now. He is using CPAP every night CPAP therapy continues to be affecting beneficial. He does use it every night for more than 4 hours a night. Will follow-up 6-[address] scan. If he has any worsening symptoms he will call prior to that. 01/04/2024 the patient is here for pulmonary follow-up visit. Overall the patient has been doing fair. He still complains of his difficulty swallowing addition to that he has had the persistent hemoptysis. Sometimes he has bright red blood. He feels is coming from the throat. He feels is related to his intubation. Therefore, we had him undergo CT scan of the neck. His oropharynx appears to be intact. In the area of the larynx in the vocal cords this is a little bit less clarity. Therefore, will go ahead and perform bronchoscopy at this point to better assess the area of the larynx for any injury and also to assess the trachea proximal trachea for any irritations or areas of bleeding. In the meantime also reassess the nasopharynx and the lower respiratory tract also assessing for any further areas of irritation and bleeding. In the meantime the patient has been using the CPAP the CPAP therapy has been affecting beneficial. Continues use it more than 4 hours a night. We will undergo the bronchoscopy tomorrow since we have an opening available. The patient will be kept NPO. She does take a baby aspirin which she is okay for him to continue. 05/05/2024 the patient is here for a pulmonary follow-up visit. The patient has had a very eventful few months. He was diagnosed with laryngeal cancer and subsequently after that completed radiation. Having significant stomatitis and irritation to the larynx. The patient is having hard time tolerating the CPAP. He is having significant congestion and mucus production and also gagging vomiting. Therefore he can not use the fullface mask. Will go ahead and treat him with chlorhexidine mouthwash in addition to some liquid Augmentin to see if we can clear any infectious processes in order for him to feel better. If he is starting to feel better he can start taking naps during the daytime with CPAP to see if he tolerates it better. And if he does so further then he can continue to use CPAP at nighttime. In the meantime while he is off the CPAP will have him get an overnight oximetry to make sure that he is not having significant hypoxia at nighttime. In the next few months he is going to undergo a PET scan to see his response to therapy. Will follow-up in 3 or 4 months. If he has any issues prior to that he will call for an earlier assessment. 07/25/2024 the patient is here for a pulmonary follow-up visit. The patient overall is doing ok. He finishes radiation therapy and starting to swallow little bit better. Although still hurts. He needs to follow through with the saltwater rinses he also has the magic mouthwash that he is not using. He is not drinking enough water at times and he is already getting dehydrated. The patient does have a PET scan scheduled soon will see the results of his therapy hopefully his stable. In the meantime he has been using the CPAP for the last 4 days. Finally was able to use it because the cough has been better. He slept for more than 10 hours the 1st night and he felt that it helped. Current settings are 8-12 APAP. His AHI was 5.3 therefore I will increase his maximum pressure from 12-13 just to see if we can improve his AHI little bit more without aggravating his irritation of the throat. If he does not tolerate the slight increase in pressure he can always call and I can decrease it again. He will follow-up in 3-4 months if he has any issues he will call for an earlier evaluation. For now he also try some benzonatate cough drops to see if this provides some relief. 10/23/2024 the patient is here for pulmonary follow-up visit. Overall he is doing better. He is trying to eat more and also has been gaining weight. Now use be careful not to gain additional weight since he is taking p.o. calories and also via the G-tube. He is going to have that assess further hopefully he can stop or decrease the amount of gastric feeding if his calorie count is reasonable. His voice is better. The patient also has been using CPAP every night. CPAP therapy has been affecting beneficial. Although he has been seen that the pressure is drastically decreased in sometimes he feels like he is not getting enough air. Will go ahead and increase the pressures at this time. In addition to that he feels like it is getting flutter with water. I did decrease the humidity. I did ask him to decrease the temperature consent can do it online. He did have a PET scan back in August 2024. No significant FDG activity of the tonsillar area where he had the mask. He does have some reactive changes though. No evidence of any pulmonary nodules or abnormal FDG activity in the chest cavity. Respiratory status is stable. He will follow-up in 6 months. If he has any issues with the change in pressures from CPAP and will call. 05/04/2025 the patient is here for pulmonary follow-up visit. The patient overall has been recovering well from his head and neck cancer. He did follow-up with ENT and underwent a laryngoscopy and he is very reassured with the findings. Now she is going to undergo an additional imaging studies I believe and hopefully we can also get imaging studies of the chest. The patient is swallowing better and overall he is recovering very well from that. From a respiratory status the patient is doing well he is not using any inhalers at this time. In the meantime the CPAP therapy has been affecting beneficial he does use it for more than 4 hours a night. However he fights with the mask. The mask has not been working well he initially had a fullface mask causing irritation of the bridge of the nose and then he tried the Lillian view but it leaks a lot. I do believe that he will do better with an F 30 I mask that may be seal better around his nose and the tubing will be on the top of the head where he tends to sleep in a prone position. He has also seen that the machine that he has currently is demonstrating that the angina is about to and he needs a replacement. Will go ahead and request a replacement APAP from his current DME company [employer] this time. FORMERLY [facility], [facility] Medical History (Updated 11/22/24 @ 09:56 by Norman Winter MD) Dysphagia Bleeding from mouth Tonsillar cancer Neck pain Dyspnea Elevated diaphragm WILIAM (obstructive sleep apnea) Hypogonadism in male Urgency incontinence Renal stones BPH (benign prostatic hyperplasia) Hypogonadism Family History Other CVD (cardiovascular disease) Cancer Pancreatic cancer Social History Patient Tobacco Use Status: Never used Tobacco Review of Systems Const Denies chills, Denies fatigue, Denies fever(s), Reports weight gain and Denies weight loss ENT Denies dizziness Card Denies chest pain, Denies leg edema, Denies lightheadedness, Denies palpitations, Denies dyspnea on exertion, Denies orthopnea and Denies other Resp Denies cough, Denies dyspnea on exertion and Denies wheezing GI Denies hematochezia and Denies change in stool character Musc Denies abnormal gait, Denies muscle weakness, Denies numbness, Denies radiating pain into limb and Denies tingling Skin/Breast Denies rash Neuro Denies abnormal gait, Denies dizziness, Denies numbness and Denies tingling Endo Denies fatigue and Denies palpitations Darwin/Lymph Denies lymphadenopathy Aller/Immun Denies wheezing Physical Exam Vital Signs: Last Vital Signs Pulse 56 05/04/25 14:42 BP 104/62 05/04/25 14:42 Pulse Ox 97 05/04/25 14:42 Oxygen Delivery Method Room Air 05/04/25 14:42 BMI result Body Mass Index 26.6 Const General: comfortable HEENT Head: Yes normocephalic Mouth: Normal oral and palatal mucosa present Teeth and gingiva: dentures Throat: Yes posterior oropharynx normal Eyes General: appearance normal, both eyes and all related structures Neck Neck: Yes trachea midline Chest Chest palpation & inspection: normal inspection of the chest Resp Effort & Inspection: normal respiratory effort Auscultation: no wheezes and diminished lung sounds Cardio Rate: regular rate Rhythm: regular rhythm Heart sounds: S1 normal heart sound present and S2 normal heart sound present Skin General skin exam: no rashes or lesions noted Extrem General: Yes no clubbing, cyanosis or edema Assessment & Plan Assessment & Plan (1) Cough: Code(s): R05.9 - Cough, unspecified Category: Medical Qualifiers: Cough type: subacute Qualified Code(s): R05.2 - Subacute cough (2) WILIAM (obstructive sleep apnea): Code(s): G47.33 - Obstructive sleep apnea (adult) (pediatric) Category: Medical (3) 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 - Disorders of diaphragm Category: Medical (4) Dyspnea: Code(s): R06.00 - Dyspnea, unspecified Category: Medical Qualifiers: Dyspnea type: dyspnea on exertion Qualified Code(s): R06.09 - Other forms of dyspnea (5) Tonsillar cancer: Code(s): C09.9 - Malignant neoplasm of tonsil, unspecified Category: Medical (6) Dysphagia: Code(s): R13.10 - Dysphagia, unspecified Category: Medical Qualifiers: Dysphagia type: oral phase Qualified Code(s): R13.11 - Dysphagia, oral phase Plan contnue APAP until better, increased 8-12-->8-13->9-15; Trial N30i with chin strap or F30i continue ROVERTO as needed F/U 6 months Coding Level of Care Code Est Pt Level 4 (23674) Complex EM visit Add On G2211 Diagnoses Subacute cough R05.2 Cough type: subacute WILIAM (obstructive sleep apnea) G47.33 Elevated diaphragm J98.6 Dyspnea on exertion R06.09 Dyspnea type: dyspnea on exertion Tonsillar cancer C09.9 Oral phase dysphagia R13.11 Dysphagia type: oral phase Time Spent (min) 16
--- OUTSIDE RECORDS SUMMARY | 2025-05-04 21:42 | XMS_ITS | Clinical Summary ---
Author Organization [facility] Address [address] [place] [id number] Phone Care Team Providers Care Roping Machine Tender Name Role Phone Min Mckenzie MD Primary Care Provider [phone] Social History Tobacco Use Types Packs/Day Years Used Date Smoking Tobacco: Never Assessed Education Answer Date Recorded Are you interested in more education? Not on jahaira e 10/16/2022 Are you concerned about learning? Not on file 10/16/2022 No 10/16/2022 No 10/16/2022 Digital Access Answer Date Recorded No 11/17/2022 No 11/17/2022 No 11/17/2022 Reliable internet access at home? Not on file 11/17/2022 Device with a working camera? Not on file Sex and Gender Information Value Date Recorded Sex Assigned at Not on file Legal Sex Male 7:04 PM EDT Gender Identity Not on file Sexual Orientation Not on file Plan of Treatment Health Maintenance Due Date Last Done Comments Adult Td,Tdap Booster 1957 LIPID PANEL 1957 DEPRESSION SCREENING 1969 SMOKING Hx and SMOKELESS TOB ACCO SCREENING 1970 HEPATITIS C SCREENING 09/19/1975 COLOGUARD 2002 COLONOSCOPY 2002 COLORECTAL CANCER SCREENING 2002 FIT TEST 2002 FOBT 2002 SIGMOIDOSCOPY 2002 VIRTUAL COLONOSCOPY 2002 PNEUMOCOCCAL VACCINES (50+ y ears) (1 of 1 - PCV) 09/19/2007 ZOSTER VACCINES (1 of 2) 09/19/2007 INFLUENZA VACCINE (#1) 2025 02/28/2015 COVID-19 VACCINE (2 - 2024-2 6 season) 2025 01/07/2021 RSV VACCINE (1 - 1-dose 75+ series) 2032 HEPATITIS A VACCINES Aged Out No long er eligible based on patient's age to complete this topic HIB VACCINES Aged Out No longer eligi ble based on patient's age to complete this topic IPV VACCINES Aged Out No longer eligi ble based on patient's age to complete this topic MENINGOCOCCAL VACCINES (ACWY) Aged Out No longer eligible based on patient's age to complete this topic MENINGOCOCCAL VACCINES (B) Aged Out N o longer eligible based on patient's age to complete this topic Medical Devices Not on file Insurance [facility]ACEMENT [address] [place] [id number] [facility] REPL[facility] Member Subscriber [facility] Name:Wood Rios Relation to Subscriber:Self Name:Wood Rios Payer ID:[id number] (NAIC) Group ID:Not on file Type:Medicare Address: [address] [place] [address] [facility] REPLACEMENT Member Subscriber Plan / [facility] Name:Wood Rios Relation to Subscriber:Self Name:Wood Rios Payer ID:[id number] (NAIC) Group ID:Not on file Type:Medicare Address: [address] [place] [address] [facility] MEDIC[facility] REPLACEMENT [place] [id number] Care Teams Roping Machine Tender Relationship Specialty Start Date End Date Min Mckenzie MD [address] [place] [id number] PCP - General Internal Medicine 04/29/17 Additional Source Comments The information contained in this document represents components of the legal health record. It is not the complete legal health record.[facility]
--- OUTSIDE RECORDS SUMMARY | 2025-05-04 21:42 | XMS_ITS | Continuity of Care Document ---
Author Organization [place] - [facility], [facility] Address [address] [place] [address] Care Team Providers Care Traveling Sales Executive Name Role Phone ALICIA HIGGINS Primary Care Provider [phone] Assessment Encounter Date Assessment Date Assessment LastModified by Organization Details LastModified Time 04/13/2025 04/13/2025 69 yo M presents for RCS. 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 Overall improved swallowing since his last visit. August 2024 PET which showed interval resolution of previous left tonsillar FDG avid mass and left neck FDG avid adenopathy with likely only residual mucosal physiologic reactive uptake in the left oropharynx. On exam today, there is scarring in the oropharynx. the base of tongue is smooth. No mucus pooling. Improving lymphedema. Continues to improve overall. There is some mild crusting in the nose for which I recommended saline and mupirocin. I do not see any oral ulcers; prescribed dexamethasone seems to have helped. Follow up 3 months. [email or web address] Not available 04/18/2025 09:53:58 Plan of Treatment Reminders Order Date Submit Date Provider Last Modified By Organization Details Last Modified Time Details Appointments Establish ed 15 2025 02:00P M SHITAL VAZQUEZ MD Not available Not available Not available Lab None recorded. Referral None recorded. Procedures None recorded. Surgeries None recorded. Imaging None recorded. Medication Orders mupirocin 2 % topical ointment 2024 025 [id number], [address] , [place], [place], [phone], 04/13/2025 15:20:25 Patient TargetsNo targets recorded. Patient InstructionsNo instructions recorded. Reason for Referral None Reported. 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 SHITAL VAZQUEZ MD [address], [place], [address] , [place] - [facility] 4 12:16:59 Malignant neoplasm of oropharyn x 440253603 Active 2023 SHITAL VAZQUEZ MD [address], [place], [address] , [place] - [facility] 4 17:34:01 Esophagea l dysphagia 12738573 Active 2024 SHITAL VAZQUEZ MD [address], [place], [address] , [place] - [facility] 5 16:40:43 Oropharyn geal dysphagia 33826206 Active 2024 SHITAL VAZQUEZ MD [address], [place], [address] , [place] - [facility] 5 16:40:50 Sensorine ural hearing loss of bilateral ears 789205377 Active 2024 ROVERTO KELLY [address], [place], [address] , [place] - [facility] 5 15:40:45 Rhinitis 29862652 Active 2024 SHITAL VAZQUEZ MD [address], [place], [address] , [place] - [facility] 5 15:19:40 Problem Notes None recorded. Procedures Surgical History Date Name Laterality Status Provider Name and Address Organization Details Recorded Time 04/13/20 25 Fiberoptic Laryngoscopy (Comprehensive) completed SHITAL VAZQUEZ MD [address] [facility],[address], [address], [facility] 04/18/2025 09:52:58 01/13/20 25 Comp Audio with Tymps - 67434 & 31012 completed SHITAL VAZQUEZ MD [address] [facility],[address], [address], [facility] - [facility] 01/12/2025 13:38:23 01/13/20 25 Fiberoptic Laryngoscopy (Comprehensive) completed SHITAL VAZQUEZ MD [address] [facility],[address], [address], [facility] - [facility] 01/12/2025 13:38:23 09/26/19 25 Comp Audio with Tymps - 01067 & 25299 completed ROVERTO KELLY [address] [facility],[address], [address], [facility] - [facility] 09/25/2024 15:40:35 09/26/19 25 Fiberoptic Laryngoscopy (Comprehensive) completed SHITAL VAZQUEZ MD [address] [facility],[address], [address], [facility] 09/28/2024 11:16:19 06/26/19 25 Fiberoptic Laryngoscopy (Comprehensive) completed SHITAL VAZQUEZ MD [address] [facility],[address], [address], [facility] - [facility] 07/05/2024 09:09:15 01/21/20 24 Fiberoptic Laryngoscopy (Comprehensive) completed SHITAL VAZQUEZ MD [address] [facility],[address], [address], [facility] 01/24/2024 06:58:46 01/21/20 24 Biopsy Oropharynx completed SHITAL VAZQUEZ MD [address] [facility],[address], [address], [facility] - [facility] 01/24/2024 06:59:26 operation on gallbladder completed Carina Pittman [place] - [facility] 01/21/2024 11:30:07 Imaging Results None recorded. Procedure Notes None recorded. Medical Equipment None Reported. Allergies Allergen ID Allergen Name Allergen Category Reaction Reaction Severity Criticality Documentation Date Start Date Code Code System Note Provider Name and Address Organization Details Recorded Time 877119 Iodinated contrast media (substanc e) medicatio n Not available Not available Not available 01/21/2024 84590 2003 SNOMED Carina welsh [place] - [facility] 11:26:47 Medications Name Sig Start Date Stop Date Status Note LastModified by Organization Details LastModified Time m-dryl/li docaine visc2%/an tacid 06/26 completed Not Available Not Available Not Available losartan 50 mg tablet TAKE 1 TABLET BY MOUTH DAILY active Not Available Not Available No t Available fluoxetin e 40 mg capsule TAKE 1 CAPSULE BY MOUTH DAILY active Not Available Not Available No t Available atorvasta tin 40 mg tablet TAKE 1 TABLET BY MOUTH DAILY AT BEDTIME active Not Available Not Available No t Available acyclovir 200 mg/5 mL oral suspensio n SHAKE LIQUID AND TAKE 10 ML BY MOUTH THREE TIMES DAILY FOR 7 DAYS THEN SHAKE LIQUID AND TAKE 10 ML BY MOUTH TWICE DAILY FOR 21 DAYS 06/26 completed Not Available Not Available Not Available prednison e 10 mg tablet 01/20 completed Not Available Not Available Not Available cetirizin e 10 mg tablet TAKE 1 TABLET BY MOUTH [address] SCAN 09/25 completed Not Available Not Available Not Available lisinopri l 20 mg-hydroc hlorothia zide 12.5 mg tablet 01/20 completed Medicati on ID: [id number] D uration Value: 30 Brand Name: lisinopr il-hydro chloroth iazide S end Method: E-Prescr ibed Sub s Allowed: subs OK Speci al Instruct ion: take 1 tablet by mouth once daily Me dication GenericN cain: lisinopr il-hydro chloroth iazide Not Available Not Available Not Available ibuprofen 800 mg tablet TAKE 1 TABLET BY MOUTH EVERY 8 HOURS FOR PAIN 06/26 completed Not Available Not Available Not Available benzonata te 200 mg capsule TAKE 1 CAPSULE BY MOUTH TWICE DAILY NEEDED FOR COUGH active Not Available Not Available No t Available metoprolo l succinate ER 50 mg tablet,ex tended release 24 hr TAKE 1 TABLET BY MOUTH DAILY active Not Available Not Available No t Available amoxicill in 600 mg-potass ium clavulana te 42.9 mg/5 mL oral suspensio n SHAKE LIQUID AND TAKE 10 ML BY MOUTH EVERY 12 HOURS FOR 10 DAYS 09/25 completed Not Available Not Available Not Available prochlorp erazine maleate 5 mg tablet TAKE 1 OR 2 TABLET BY MOUTH EVERY 6 HOURS NEEDED NAUSEA 06/26 completed Not Available Not Available Not Available fluconazo le 200 mg tablet TAKE 1 TABLET BY MOUTH DAILY FOR 14 DAYS active Not Available Not Available No t Available sucralfat e 1 gram tablet TAKE 1 TABLET VIA GTUBE FOUR TIMES DAILY DISSOLVE IN 10 ML WARM WATER AND THEN IN 30 ML WATER AND INSTILL IN VIA GTUBE 06/26 completed Not Available Not Available Not Available methylpre dnisolone 32 mg tablet TAKE 1 TABLET BY MOUTH [address] SCAN; THEN TAKE 1 TABLET BY MOUTH [address] SCAN 01/20 completed Not Available Not Available Not Available olanzapin e 5 mg tablet TAKE 1 TABLET BY MOUTH DAILY AT BEDTIME FOR 4 DAYS. BEGIN THE NIGHT OF TREATMEN T. REPEAT WITH EACH TREATMEN T 06/26 completed Not Available Not Available Not Available oxycodone 5 mg/5 mL oral solution TAKE 15 ML BY MOUTH EVERY 4 HOURS FOR 7 DAYS NEEDED FOR PAIN 06/26 completed Not Available Not Available Not Available diphenoxy late-atro pine 2.5 mg-0.025 mg tablet TAKE 2 TABLETS BY MOUTH FOUR TIMES DAILY NEEDED FOR LOOSE STOOLS 06/26 completed Not Available Not Available Not Available acyclovir 400 mg tablet TAKE 1 TABLET BY MOUTH THREE TIMES DAILY 06/26 completed Not Available Not Available Not Available aspirin 81 mg tablet,de layed release 09/25 completed Medicati on ID: [id number] B rand Name: aspirin Send Method: E-Prescr ibed Sub s Allowed: subs OK Medic ationGen ericName : aspirin Not Available Not Available Not Available doxycycli ne monohydra te 100 mg tablet TAKE 1 TABLET BY MOUTH TWICE DAILY FOR 14 DAYS 01/20 completed Not Available Not Available Not Available tramadol 50 mg tablet TAKE 1 TABLET BY MOUTH EVERY 4 HOURS NEEDED FOR PAIN 06/26 completed Not Available Not Available Not Available amoxicill in 500 mg tablet TAKE 1 TABLET BY MOUTH EVERY 8 HOURS UNTIL ALL TAKEN 01/20 completed Not Available Not Available Not Available ondansetr on 8 mg disintegr ating tablet DISSOLVE 1 TABLET ON THE TONGUE EVERY 8 HOURS NEEDED FOR NAUSEA OR VOMITING 06/26 completed Not Available Not Available Not Available lidocaine -prilocai ne 2.5 %-2.5 % topical cream APPLY A DIME SIZED AMOUNT OVER PORT AND COVER WITH PLASTIC . 1 HOUR BEFORE PORT USE 06/26 completed Not Available Not Available Not Available dexametha sone 0.5 mg/5 mL oral solution 01/20 completed Not Available Not Available Not Available magnesium oxide 400 mg (241.3 mg magnesium ) tablet TAKE 1 TABLET BY MOUTH EVERY DAY 06/26 completed Not Available Not Available Not Available tamsulosi n 0.4 mg capsule TAKE 1 CAPSULE BY MOUTH AT BEDTIME 01/20 completed Not Available Not Available Not Available gemfibroz il 600 mg tablet TAKE 1 TABLET BY MOUTH TWICE DAILY 06/26 completed Not Available Not Available Not Available cephalexi n 500 mg capsule TAKE 1 CAPSULE BY MOUTH THREE TIMES DAILY 06/26 completed Not Available Not Available Not Available pantopraz ole 40 mg tablet,de layed release TAKE 1 TABLET BY MOUTH DAILY active Not Available Not Available No t Available Medrol 16 mg tablet 01/20 completed Medicati on ID: [id number] D uration Value: 2 Prescri bed By Name: Lizzette Owen nd Name: Medrol S end Method: E-Prescr ibed Sub s Allowed: subs OK Speci al Instruct ion: Take 2 tabs by mouth 12 hours before MRI, then 1 tab by mouth 2 hours before MRI Medi cationGe nericNam e: Medrol Not Available Not Available Not Available dexametha sone 4 mg tablet TAKE 2 TABLETS BY MOUTH DAILY FOR 3 DAYS. BEGIN THE DAY AFTER CHEMOTHE RAPY. REPEAT WITH EACH TREATMEN T. TAKE WITH FOOD 06/26 completed Not Available Not Available Not Available prednison e 50 mg tablet 01/20 completed Not Available Not Available Not Available hydrochlo rothiazid e 12.5 mg capsule TAKE 1 CAPSULE BY MOUTH DAILY. 06/26 completed Not Available Not Available Not Available lidocaine HCl 2 % mucosal solution 06/26 completed Not Available Not Available Not Available mupirocin 2 % topical ointment APPLY A SMALL AMOUNT TO THE AFFECTED AREA BY TOPICAL ROUTE 2 TIMES PER DAY for 2 weeks 2024 active Not Available Not Available Not Avai lable famotidin e 40 mg/5 mL (8 mg/mL) oral suspensio n SHAKE LIQUID AND TAKE 5 ML BY MOUTH TWICE DAILY 06/26 completed Not Available Not Available Not Available fentanyl 25 mcg/hr transderm al patch 06/26 completed Not Available Not Available Not Available levofloxa carmela 500 mg tablet TAKE 1 TABLET BY MOUTH DAILY FOR 7 DAYS 01/09 completed Not Available Not Available Not Available SSD 1 % topical cream APPLY TOPICALL Y TO THE AFFECTED AREA TWICE DAILY TO AREAS OF BROKEN SKIN 06/26 completed Not Available Not Available Not Available dexametha sone 0.5 mg tablet active Not Available Not Available No t Available fluconazo le 40 mg/mL oral suspensio n SHAKE LIQUID AND TAKE 5 ML BY MOUTH DAILY FOR 14 DAYS 06/26 completed Not Available Not Available Not Available fluoxetin e 20 mg capsule TAKE 1 CAPSULE BY MOUTH DAILY active Not Available Not Available No t Available finasteri de 5 mg tablet 01/20 completed Medicati on ID: [id number] D uration Value: 30 Brand Name: Lexara Send Method: E-Prescr ibed Sub s Allowed: subs OK Speci al Instruct ion: take 1 tablet by mouth once daily at bedtime Medicati onGeneri cName: finaster chidi Not Available Not Available Not Available amoxicill in 875 mg-potass ium clavulana te 125 mg tablet TAKE 1 TABLET BY MOUTH TWICE DAILY FOR 10 DAYS 01/20 completed Not Available Not Available Not Available amoxicill in 500 mg-potass ium clavulana te 125 mg tablet TAKE 1 TABLET BY MOUTH EVERY 8 HOURS FOR 7 DAYS 01/20 completed Not Available Not Available Not Available Ventolin HFA 90 mcg/actua tion aerosol inhaler INHALE 2 PUFFS INTO THE LUNGS EVERY 6 HOURS NEEDED FOR SHORTNES S OF BREATH OR WHEEZING 01/20 completed Not Available Not Available Not Available oxycodone 5 mg tablet TAKE 1 TABLET BY MOUTH EVERY 4 HOURS NEEDED FOR MODERATE PAIN FOR 3 DAYS 01/20 completed Not Available Not Available Not Available Benadryl 25 mg capsule 01/20 completed Medicati on ID: [id number] D uration Value: 2 Prescri bed By Name: Lizzette Owen nd Name: Carmenryl Send Method: E-Prescr ibed Sub s Allowed: subs OK Speci al Instruct ion: take 2 cap 12 hours before MRI, then 2 cap 2 hours before MRI Medi cationGe nericNam e: Benadryl Not Available Not Available Not Available neomycin 3.5 mg/g-poly myxin B 10,000 unit/g-de xameth 0.1 % eye oint APPLY TOPICALL Y TO AFFECTED EYELIDS EVERY NIGHT AT BEDTIME 01/20 completed Not Available Not Available Not Available bupropion HCl XL 300 mg 24 hr tablet, extended release TAKE 1 TABLET BY MOUTH DAILY 09/25 completed Not Available Not Available Not Available bupropion HCl XL 150 mg 24 hr tablet, extended release TAKE 1 TABLET BY MOUTH EVERY 24 HOURS 06/26 completed Not Available Not Available Not Available duloxetin e 30 mg capsule,d elayed release TAKE 1 CAPSULE BY MOUTH DAILY 09/25 completed Not Available Not Available Not Available fentanyl 12 mcg/hr transderm al patch 06/26 completed Not Available Not Available Not Available chlorhexi dine gluconate 0.12 % mouthwash SWISH 15 ML BY MOUTH TWICE DAILY 06/26 completed Not Available Not Available Not Available Senexon-S 8.6 mg-50 mg tablet TAKE 1 TABLET BY MOUTH TWO TIMES A DAY FOR 3 DAYS 01/20 completed Not Available Not Available Not Available testoster one 20.25 mg/1.25 gram per pump act.(1.62 %) transderm al gel APPLY MAX OF 2 PUMPS TOPICALL Y TO EACH UPPER ARM AND SHOULDER EVERY DAY 01/20 completed Not Available Not Available Not Available naloxone 4 mg/actuat ion nasal spray CALL 911. SPR CONTENTS OF ONE SPRAYER (0.1ML) INTO ONE NOSTRIL. REPEAT IN 2-3 MIN IF SYMPTOMS OF OPIOID EMERGENC Y PERSIST, ALTERNAT E NOSTRILS 06/26 completed Not Available Not Available Not Available Vitals Date Recorded Body height Body mass index (BMI) Body weight Provider Name and Address Organization Details Last Updated DateTime 04/13/2025 175.26 cm 26.4 kg/m2 12406.03 g SNOW KELLER, [address], [address], [place] - [facility] 04/13/2025 13:05:15 Social History None recorded. Functional Status None recorded. Mental Status None recorded. Family History Nothing Reported. Medical History Condition Response Hypertension Y Anxiety Y Depression Y Past Encounters Encounter ID Performer Location Encounter Start Date Encounter Closed Date Diagnosis/Indication Diagnosis SNOMED-CT Code Diagnosis ICD10 Code Diagnosis IMO Codes Diagnosis Note [id number] SHITAL VAZQUEZ MD [facility] [address] [address] 04/13/2025 12:58:23 04/13/2025 13:22:11 Oropharyngeal dysphagia 38136576 R13.12 History of malignant neoplasm of oropharynx 4339697548 9355987 Z85.818 Rhinitis 67637486 J34.81 [id number] Health Concerns Section Related Observation LastModified by Organization Detai ls LastModified Time None Recorded Concern Status LastModified by Organization Details LastModified Time None Recorded Payers Encounter Date Sequence Insurance Name Policy Number Policy Riojas Covered Member ID Riojas Member ID Guarantor Name 04/13/2025 1 [place] [employer] Wood Rios [id number] Wood Rios 04/13/2025 2 [place] [facility] Wood Rios [id number] Wood Rios Notes Date Note Type Note Provider Name and Address Organization Details Recorded Time 04/13/2025 text/html 69 yo M presents for RCS dexamethasone for oral sores, feels better no ear pain swallowing acceptable endo with dilation August 23/2025 TSH was 1.73 and the T4 was 1.12 SHITAL VAZQUEZ MD [address] [place] [address], [place], [address], [facility] - [facility] 04/18/2025 09:54:42
--- OUTSIDE RECORDS SUMMARY | 2025-05-04 21:42 | XMS_ITS | Data Portability ---
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 Overall improved swallowing since his last visit. Since his last visit, he had PET which showed interval resolution of previous left tonsillar FDG avid mass and left neck FDG avid adenopathy with likely only residual mucosal physiologic reactive uptake in the left oropharynx and EGD with normal findings, but had dilation. On exam today, the base of tongue is smooth. There is less mucus pooling in the vallecula and hypopharynx. There is a pocket at the left oropharynx from scarring and I recommended using salt water gargles daily. We did check hearing showing a symmetric HF sensorineural loss. There could be some partial mastoid effusion (seen on previous MRI) contributing to persistent feeling of blockage on the left. [email or web address] Not available 09/28/2024 11:21:17 01/12/2025 01/12/2025 69 yo M presents for [facility]. Patient has completed chemoradiation in April for [...] of tongue is smooth. No mucus pooling. No evidence of thrush. Improving lymphedema. Continues to improve overall. Follow up 3 months. [email or web address] Not available 01/13/2025 06:44:54 04/13/2025 04/13/2025 69 yo M presents for [...] Organization Details Last Modified Time Details Appointments Zhen Kam 2025 02:00P M SHITAL VAZQUEZ MD Not available Not available Not available Lab surgi jaimie patho logy study - left tonsi l hyper troph y, shanda rning for SCC 2023 024 JAC [facility] (Centralized Electronic Ordering - All Locations), Patient Can Go To The Location Of Their Choice, [id number] 01/27/2024 15:06:12 Referral gastr jake kaur ist refer ral - Refer ral for Oroph aryng eal dysph agia. Thank you. 2024 025 [email or web address] [facility] Gastroenterology Scheduling Department, [address] [place] [address], [address], 08/07/2024 11:52:17 Procedures None recor ded. Surgeries tonsi llect margarito (SURG ) 2023 024 davis Not available 01/24/2024 07:22:15 Imaging None recor ded. Medication Orders mupir ocin 2 % topic al ointm ent 2024 025 [id number], [address], [place], [id number], 04/13/2025 15:20:25 Patient TargetsNo targets recorded. Patient InstructionsNo instructions recorded. Reason for Referral People Manager Referral for Oropharyngeal dysphagia Referral for Oropharyngeal dysphagia. Thank you. Referring Physician: Shital Vazquez, Otolaryngology, Encounter Date: 06/26/2024 Results Created Date Observation Date Name Description Value Unit Range Abnormal Flag Note LastModifiedBy Organization Detail LastModifiedTime 01/24/20 24 12/21/2023 CT, neck, soft tissu e, w/ contr ast No observ ation record ed. [email or web address] Not Available 10/2023 10:21:56 02/10/20 24 02/10/2024 PET-C T, skull base to mid-t high scan [facility] PET/CT Imagin g Access ion Number : [id number] Patien t Name: Augie scar, Jorge Luis griggs Medica l Record Number : [id number] Date of : 1955 Date of Exam: 2023 Referr ing Physic jaime: Shital King [facility] [place] [address], [address] [place] [address] Exam: PT Skull Base to Mid Thigh CPT 94010 Room Descri ption: [facility] o Pt4 PET/CT Histor y: Oropha rynx carcin dulce maria. Compar hayley: Outsid e images not availa ble at this time. CT abdome n and pelvis with contra st 023. PET techni que: Beginn ing approx imatel y 60 minute s follow ing the intrav enous admini strati on of 13 mCi of F-18 fluoro deoxyg lucose in the right antecu bital fossa, emissi on images were obtain ed from the skull base to the mid thighs . Follow ing this CT was obtain ed at the same levels withou t IV or oral contra st with the patien t mainta ining quiet breath ing. Follow ing attenu ation correc tion using the CT images , axial sagitt al and tillman l images were recons tructe d. SUV values normal ized by body mass. The blood glucos e at the time of inject ion was 105 mg/dL. Findin gs: Metal [employer] al Refere nce Values : Ascend ing aortic blood pool: SUV mean 1.8, SUV max 2.2. Right hepati c lobe: SUV mean 2.4, SUV max 3. Head/n curtis: Intens kina avid left oropha ryngea l wall lesion extend ing to the left palati ne tonsil measur ing up to 2.1 cm, SUV max 15 image 41. Multip le mildly avid adjace nt level 2 cervic al lymph nodes. For exampl e a level 2A lymph node measur ing up to 1.2 cm, SUV max 3.1, image 42. More inferi gregory there are mildly avid cervic al lymph nodes measur ing up to 0.9 cm, SUV max 5.6, image 44. Chest: Mild bibasi lar atelec tasis. Small pulmon melissa cyst at the left lung base. No pleura l or perica rdial effusi on. Heavy tillman ry artery calcif icatio n. No enlarg ed or FDG-av id suprac lavicu lar, medias tinal, hilar, or axilla ry lymph nodes. Abdome n/pelv is: Postsu rgical change s from prior coloni c anasto mosis in the pelvis and small bowel anasto mosis in the right lower quadra nt. Hepati c steato sis. The spleen , pancre as, and adrena ls appear normal . Right renal cysts, better charac terize d on the recent CT. Left renal cyst. No ascite s. No enlarg ed or FDG-av id lymph nodes in the abdome n or pelvis . Small fat-co ntaini ng inguin al hernia s. Osseou s struct ures: No focal avid bony lesion . Small degene rative change s of the visual ized spine. Sclero tic focus at T11, nonspe cific. Impres pedro: 1. Intens kina avid oropha ryngea l lesion extend ing to the right palant ine tonsil measur ing up to 2.1 cm, consis tent with primar y neopla sm. 2. Multip le mildly avid left level 2 cervic al lymph nodes, consis tent with metast asis. 3. No other eviden ce of FDG avid distan t metast atic diseas e in the chest, abdome n, or pelvis . Electr onical ly Signed By: Tresa Osorio MD [facility] [address] [facility] [address], [place], [address], 02/10/2024 16:04:14 04/10/20 24 04/05/2024 [place], modif ied brent talbert ow study No observ ation record ed. [facility] (Medical Records) [address] [facility], [place], [address], 06/01/2024 12:07:35 09/27/19 audio gram No observ ation record ed. BARCODE Not Available 2024 10:29:28 10/11/19 25 06/11/2016 audio gram No observ ation record ed. [email or web address] Not Available 2024 15:56:21 Result Notes Documentation Provider Name and Address Organization Details Recorded Time Pet-ct, Skull Base To Mid-thigh Scan : [facility] PET/CT Imaging Accession Number: [id number] Patient Name: Wood Rios Date of : 1955 Date of Exam: 02-10-2024 Referring Physician: Shital Vazquez [facility] [address] [facility] 100 [place] [address] Exam: PT Skull Base to Mid Thigh CPT 76432 Room Description: [facility] Pt4 PET/CT History: Oropharynx carcinoma. Comparison: Outside [...] abdomen, or pelvis. Electronically Signed By: Suzanne VAZQUEZ MD [address] [place] [address], [phone], [facility] - [facility] 02/10/2024 16:04:14 Problems Name Problem SNOMED Code Status Onset Date Resolution Date Notes Provider Name and Address Organization Details Recorded Time Sensorine ural hearing loss 05394889 Active 2015 Sensorineu ral hearing loss, unilateral , right ear, with unrestrict ed hearing on the contralate ral side; Note: Date Diagnosed: 06/11/2016 1:39 PM (H90.41) Not Available [facility] 4 03:10:02 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 2023 SHITAL VAZQUEZ MD [address] [facility],[place] [address], [place], [address] , [facility] - [facility] [place] 4 12:16:59 Malignant neoplasm of oropharyn x 184235488 Active 2023 SHITAL VAZQUEZ MD [address] [facility],[place] [address], [place], [address] , [facility] - [facility] [place] 4 17:34:01 Esophagea l dysphagia 48235560 Active 2024 SHITAL VAZQUEZ MD [address] [facility],[place] [address], [place], [address] , [facility] - [facility] [place] 5 16:40:43 Oropharyn geal dysphagia 76976111 Active 2024 SHITAL VAZQUEZ MD [address] [place] [address],[place] [address], [place] gr[place], [place], [address] , [facility] - [facility] [place] 5 16:40:50 Sensorine ural hearing loss of bilateral ears 822094585 Active 2024 ROVERTO KELLY [address] [facility],[place] [address], [place], [place], [address] , [facility] - [facility] [place] 5 15:40:45 Rhinitis 34707504 Active 2024 SHITAL VAZQUEZ MD [address] [facility],[place] [address], [place], [address] , [facility] - [facility] [place] 5 15:19:40 Problem Notes None recorded. Procedures Surgical History Date Name Laterality Status Provider Name and Address Organization Details Recorded Time 04/13/20 25 Fiberoptic Laryngoscopy (Comprehensive) completed SHITAL VAZQUEZ MD [address] [facility] [address],[place] [address], [place], [address], [place] [facility] [place] 04/18/2025 09:52:58 01/13/20 Comp Audio with Tymps - 08177 & 74088 completed SHITAL VAZQUEZ MD [address] [facility] [address], [address], [facility] - [facility] [place] 01/12/2025 13:38:23 01/13/20 25 Fiberoptic Laryngoscopy (Comprehensive) completed SHITAL VAZQUEZ MD [address] [facility] [address], [address], [facility] - [facility] [place] 01/12/2025 13:38:23 09/26/19 25 Comp Audio with Tymps - 74424 & 68088 completed ROVERTO KELLY [address] [facility] [address], [address], [facility] [place] 09/25/2024 15:40:35 09/26/19 25 Fiberoptic Laryngoscopy (Comprehensive) completed SHITAL VAZQUEZ MD [address] [facility],[address], [address], [facility] [place] 09/28/2024 11:16:19 06/26/19 25 Fiberoptic Laryngoscopy (Comprehensive) completed SHITAL VAZQUEZ MD [address] [facility] [address], [address], [facility] - [facility] 07/05/2024 09:09:15 01/21/20 24 Fiberoptic Laryngoscopy (Comprehensive) completed SHITAL VAZQUEZ MD [address] [facility] [address], [address], [facility] - [facility] 01/24/2024 06:58:46 01/21/20 24 Biopsy Oropharynx completed SHITAL VAZQUEZ MD [address] [facility],[address], [address], [facility] - [facility] 01/24/2024 06:59:26 operation on gallbladder completed Carina Pittman [place] - [facility] 01/21/2024 11:30:07 Imaging Results None recorded. Procedure Notes None recorded. Medical Equipment None Reported. Allergies Allergen ID Allergen Name Allergen Category Reaction Reaction Severity Criticality Documentation Date Start Date Code Code System Note Provider Name and Address Organization Details Recorded Time 744432 Iodinated contrast media (substanc e) medicatio n Not available Not available Not available 01/21/2024 20935 2003 SNOMED Carina welsh [place] - [facility] 4 11:26:47 Medications Name Sig Start Date Stop [...] mg tablet 01/20 completed Medicati on ID: [id number] D uration Value: 30 Brand Name: lisinopr [...] layed release 09/25 completed Medicati on ID: [id number] B rand Name: aspirin Send Method: E-Prescr [...] mg tablet 01/20 completed Medicati on ID: [id number] D uration Value: 2 Prescri bed By [...] 2 TIMES PER DAY for 2 weeks 10/24/ 2025 active Not Available Not Available Not Avai [...] mg tablet 01/20 completed Medicati on ID: [id number] D uration Value: 30 Brand Name: Panjo Send Method: E-Prescr ibed Sub s Allowed: [...] mg capsule 01/20 completed Medicati on ID: [id number] D uration Value: 2 Prescri bed By Name: Magen Mace M.D. Bra nd Name: Benlevy Send Method: E-Prescr ibed Sub s Allowed: [...] and Address Organization Details Last Updated DateTime 06/26/2024 175.26 cm 25.1 kg/m2 59957.7 g Carina Pittman [place] [facility] 06/26/2024 16:02:45 Date Recorded Body height Body mass index (BMI) Body weight Provider Name and Address Organization Details Last Updated DateTime 09/25/2024 175.26 cm 26.9 kg/m2 92720.81 g Carina Pittman [place] - [facility] 09/25/2024 16:01:06 Date Recorded Body height Body mass index (BMI) Body weight Provider Name and Address Organization Details Last Updated DateTime 01/12/2025 175.26 cm 26.9 kg/m2 25591.81 g Juanita Cummingsos [place] - [facility] 01/12/2025 13:33:22 Date Recorded Body height Body mass index (BMI) Body weight Provider Name and Address Organization Details Last Updated DateTime 01/21/2024 165.1 cm 33.1 kg/m2 08007.88 g Carina Pittman [place] [facility] 01/21/2024 11:34:12 Date Recorded Body height Body mass index (BMI) Body weight Provider Name and Address Organization Details Last Updated DateTime 04/13/2025 175.26 cm 26.4 kg/m2 [address]692.[address], [address], [facility] 04/13/2025 13:05:15 Social History None recorded. Functional Status None recorded. Mental Status None recorded. Family History Nothing Reported. Medical History Condition Response Anxiety Y Hypertension Y Depression Y Past Encounters Encounter ID Performer Location Encounter Start Date Encounter Closed Date Diagnosis/Indication Diagnosis SNOMED-CT Code Diagnosis ICD10 Code Diagnosis IMO Codes Diagnosis Note [id number] SHITAL VAZQUEZ MD [facility] [address] [place] [address] 01/21/2024 11:24:56 01/21/2024 12:44:15 Neoplasm of uncertain behavior of pharynx 41312540 D37.05 68-year-ol d male presents today for left tonsil mass which was noted as part of workup for hemoptysis . He also had a bronchosco py. He reports symptoms of sore throat and dysphagia after having a cholecyste ctomy in January.On exam, the left tonsil is enlarged with induration extending onto the soft palate. The nasal surface of the soft palate was irregular and flexible laryngosco py. Larynx and hypopharyn x were normal appearing. I did perform biopsy of the left tonsil. This was somewhat challengin g due to his gag. I attempted for second specimen which was not tolerated. Will schedule exam under anesthesia in case the biopsy I obtained is not diagnostic . We did discuss the concern for cancer. 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 On exam today, the base of tongue is smooth. There is some mucus secretions pooling in the vallecula and there also mucus in the nasal cavity consistent with his current URI. There is some scarring in the oropharynx . The true cords are symmetric and mobile. There is no ulceration in the hypopharyn x. There are superficia l ulcers on the soft palate likely related to the URI. I counseled him on the importance of swallowing different consistenc ies as recommende d by his speech pathologis t. I would recommend evaluation by gastroente rologist given findings on his swallow study including the cervical web and cricophary ngeal achalasia to see if he may benefit from dilation. I would like to see him back in a couple months after his PET scan. [id number] SHITAL VAZQUEZ MD [facility] of [address] [place] [address] 09/25/2024 15:38:57 09/25/2024 16:46:28 Sensorineural hearing loss of bilateral ears 913602425 H90.3 Audiologic al evaluation results: Right ear: Normal through 2 kHz sloping to moderately severe sensorineu ral hearing loss with excellent word recognitio n. Left ear: Normal through 2 kHz sloping to moderately severe sensorineu ral hearing loss with excellent word recognitio n. Tympanomet ry: Right Ear:Type A Left Ear:Type A Oropharyng eal dysphagia 28591165 R13.12 History of malignant neoplasm of oropharynx 7020860637 1904928 Z85.818 [id number] SHITAL VAZQUEZ MD [facility] of [address] [address] 01/12/2025 13:28:53 01/12/2025 13:47:32 Oropharyngeal dysphagia 56458979 R13.12 History of malignant neoplasm of oropharynx 5134161936 9595793 Z85.818 [id number] SHITAL VAZQUEZ MD [facility] of [address] [address] 04/13/2025 12:58:23 04/13/2025 13:22:11 Oropharyngeal dysphagia 33198450 R13.12 History of malignant neoplasm of oropharynx 9777115454 2550661 Z85.818 Rhinitis 66155558 J34.81 [id number] Health Concerns Section Related Observation LastModified by Organization Detai ls LastModified Time None Recorded Concern Status LastModified by Organization Details LastModified Time None Recorded Advance Directives Directive None Recorded Payers Insurance Date Sequence Insurance Name Policy Number Policy Riojas Covered Member ID Riojas Member ID Guarantor Name 04/13/2025 3 [facility] - DOS ON OR AFTER 2022 - ONE CARE (MEDICARE REPLACEMENT/AD VANTAGE - HMO) Wood Rios [id number] Wood Rios 04/13/2025 1 [place] [employer] Wood Rios [id number] Wood Rios 04/13/2025 2 [place] [facility] Wood Rios [id number] Wood Rios 04/13/2025 2 [place] [facility] Wood Rios [id number] Wood Rios 04/13/2025 1 [facility] DOS ON OR AFTER 2022 - ONE CARE (MEDICARE REPLACEMENT/AD VANTAGE - HMO) Wood Rios [id number] Wood Rios Notes Date Note Type Note Provider Name and Address Organization Details Recorded Time 4 text/html ROS as noted in the HPI 68-year-old male presents today after having a CT scan concerning for tonsil mass. He reports that he began having sore throat and dysphagia after having his gallbladder removed in January 2023. He has had hemoptysis. He denies any otalgia or weight loss.He was seen by Dr. Jernigan for the hemoptysis. He had a bronchoscopy and washings which did not show any malignancy. He had a CT scan showing a poorly demarcated heterogeneously enhancing mass lesion seen filling the left oropharyngeal wall replacing the left palate teen tonsil measuring 2.9 cm x 3.1 cm x 3.2 cm, level 2A cervical necrotic lymph nodes about 1 cm, and marked asymmetric elevation of the right hemidiaphragm causing compression platelike atelectasis in the right lower lobe. SHITAL VAZQUEZ MD [address] [facility],[address], [address], [place] [facility] 01/24/2024 07:06:23 5 text/html ROS as noted in the HPI 68 yo M here for RCS. History of T2N! SCC of the left tonsil who completed tretment 04/21/24. Getting MRI due due to some memory changes. Has some globus. Denies otalgia. Has cough. Some mucositis related to URI lately. Supposed to swallow/speech therapy, getting liquids down, not taking solids New tinnitus. SHITAL VAZQUEZ MD [address] [facility],[address], [address], [place] [facility] 07/05/2024 09:10:37 5 text/html ROS as noted in the HPI 69 yo F notes muffled hearing on the leftear pain on left better PET 08/19/24Interval resolution of previous left tonsillar FDG avid mass and leftneck FDG avid adenopathy with likely only residual mucosal physiologicreactive uptake in the left oropharynx.No PET/CT evidence of focal recurrence or metastatic disease. No abnormal findings on EGD. Had dilation with savory 20 [place] amount of mastoid fluid, right sphenoid layering PV: 68 yo M here for RCS. History of T2N1 SCC of the left tonsil who completed tretment 04/21/24. Getting MRI due due to some memory changes. Has some globus. Denies otalgia. Has cough. Some mucositis related to URI lately. Supposed to swallow/speech therapy, getting liquids down, not taking solids New tinnitus. SHITAL VAZQUEZ MD [address],[facility], [place], [address], [place] [facility] [place] 09/28/2024 11:22:38 5 text/html ROS as noted in the HPI 69 yo M presents for RCS was on abx a monthfeels a film in the mouthswallowing okno weight loss ear feels better SHITAL VAZQUEZ MD [address], [place], [address], [place] [facility] 01/13/2025 06:47:04 5 text/html 69 yo M presents for RCS dexamethasone for oral sores, feels better no ear pain swallowing acceptable endo with dilation August 23/2025 TSH was 1.73 and the T4 was 1.12 SHITAL VAZQUEZ MD [address], [place], [address], [place] [facility] 04/18/2025 09:54:42
--- OUTSIDE RECORDS SUMMARY | 2025-05-04 21:42 | XMS_ITS | Encounter Summary ---
Author Organization [facility] Address [address] [place] [address] Care Team Providers Care Solderer Barrel Ribs Name Role Phone Min Mckenzie MD Primary Care Provider [phone] Encounter Details Date Type Department Care Team (Late st Contact Info) Description 07/20/2024 Community Care Management [facility] [address] [place] [address] Clara Pastor Social History Tobacco [...] care for your loved ones. For example, director of early childhood or elderly care for an older adult? [...] Date Recorded What is your living situation? Unrecognized valu e 07/20/2024 Interpersonal Safety Answer Date Record ed Physical Abuse Unrecognized value 07/07/2024 Verbal Abuse Unrecognized value 07/07/2024 Sex and Gender Information Value Date [...] Care Team (Late st Contact Info) Description 05/14/2025 2:30 PM EST Office Visit [facility] Card[facility] [address] [place] [address] Deny Cohen MD [address] [place] [address],[address] [address] documented as of this encounter Visit Diagnoses Not on filedocumented in this encounter Care Teams Solderer Barrel Ribs Relationship Specialty Start Date End Date Min Mckenzie MD [address] [place] [phone] PCP - General Internal Medicine 05/03/13 documented as of this encounter
--- OUTSIDE RECORDS SUMMARY | 2025-05-04 21:42 | XMS_ITS | Patient Health Record ---
Author Organization [facility] [place] anita Lin Address [address] [facility] [place] [address] Care Team Providers Care Project Development Leader Name Role Phone Min Mckenzie MD Primary Care Provider Josemanuel Thompson Unavailable [phone] Allergies Allergen (clinical drug ingredient) Drug/Non Drug Allergy documented on EMR Reaction Allergy Type Onset Date Status tartrazine Dye, Tartrazine Unknown Drug Allergy Active Reason For Referral No Information Medications Medication SIG (Take, Route, Frequency, Duration) Notes Start Date End Date Status Metoprolol Succinate 50 MG 1 capsule Ora lly Once a day; Duration: 30 day(s) Active Gemfibrozil 600 MG 1 tablet 30 minutes before morning and evening meals Orally Twice a day; Duration: 30 day(s) Active Fish Oil 1200 MG 1 capsule Orally Onc e a day; Duration: 30 day(s) Active Finasteride 5 MG 1 tablet Orally Once a day; Duration: 30 day(s) Active tiZANidine HCl 2 MG 1 tablet as needed Orally Three times a day Active Atorvastatin Calcium 40 MG 1 tablet Oral ly Once a day; Duration: 30 day(s) Active Testosterone 40.5 MG/2.5GM (1.62%) 1 packet to skin in the morning to shoulder and upper arms Transdermal Once a day Active Aspirin 81 MG 1 tablet Orally Once a day; Duration: 30 day(s) Active Tamsulosin HCl 0.4 MG 1 capsule Orally O nce a day; Duration: 30 day(s) Active Pantoprazole Sodium 40 MG 1 tablet Orall y Once a day; Duration: 30 day(s) Active Pancreatin - as directed Activ e Multivitamin - 1 tablet Orally Once a day; Duration: 30 day(s) Active Lisinopril 20 MG 1 tablet Orally Once a day; Duration: 30 day(s) Active hydroCHLOROthiazide 12.5 MG 1 capsule in the morning Orally Once a day; Duration: 30 day(s) Active Social History Tobacco Use: [...] primary osteoarthritis of the ankle and/or foot ([id number]) Primary osteoarthrit is, right ankle and foot (M19.071) Active confirmed Plan Of Treatment Pending Test Test Name Order Date X ray : Foot, right 3V 02/18/2021 Insurance Providers Payer Name Payer Address Payer Phone Subscriber Number Group Number Insured Name Patient Relationship to Insured Coverage Start Date Coverage End Date [facility] [employer] Claims [address] [place] [id number] Wood Rios Self - patient is the insured Medical (General) History Medical History History ICD Code Cancer Depression Heart disease High blood pressure Kidney disease Reflux ( GERD) Surgical History Surgery Date(Month/Year) cancer surgery 2013
--- OUTSIDE RECORDS SUMMARY | 2025-05-04 21:43 | XMS_ITS | Clinical Summary ---
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 For example, child life assistant or elderly care for an older [...] 83 07/20/2024 12:06 PM EST Temperature 36.4 C (97.5 F) 07/20/2024 12:44 AM EST Respiratory Rate 16 07/20/2024 12:0 [...] Description 05/14/2025 2:30 PM EST Office Visit [facility] Cardiology [facility] [address] [place] [address] Deny Cohen MD [address] [place] [address] [address] [place] [address] Health Maintenance Due Date Last Done Comments Colorectal Cancer Screening: Colonoscopy 1955 Zoster Vaccines (1 of 2) 06/30/2012 05/05/2012 Hepatitis C Screening 05/30/2022 Medicare Annual Wellness Visit 05/30/2022 Depression Screening 06/21/2024 COVID-19 Vaccine ( season) 2025 07/10/2021, 01/07/2021 Influenza Vaccine (#1) 2025 , 03/05/2020, 02/19/2019, Additional history exists Falls Risk Assessment 07/17/2025 07/17/2024 Hypertension/CHF/CAD Annual BMP Blood Test 07/20/2025 07/20/2024, 07/19/2024, 07/18/2024, Additional history exists Social Influencers of Health Screening 07/20/2025 07/20/2024 Cholesterol Screening (Lipid Panel) 07/20/2029 07/20/2024, 07/18/2024 RSV Immunization Adult Patients (1 - 1-dose 75+ series) 2032 DTaP,Tdap,and Td Vaccines (6 - Td or Tdap) 10/24/2034 10/24/2024, 03/17/2024, 11/29/2018, Additional history exists Hepatitis A Vaccines Aged [...] something with my glants General Yes Leticia Lau P, OTR/L Note: Patient will be able to [...] no remaining pain in sub mandible area 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 LTG General No Dedra Kirkpatrick, WINDING 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 Note: Pt will consume least restrictive PO diet without changes to medical or respiratory status to maintain adequate oral nutrition hydration WINDING 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 STGs General No Dedra Kirkpatrick, WINDING 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 Note: Pt will participate with development of personalized HEP to perform 4-5xs/wk with min assist for modifications Pt will consume recommended diet textures and utilize swallow strategies given min verbal or visual cues Pt will participate in ongoing education re dysphagia s/p chemoradiation and techniques for symptom management Procedures Procedure Name Priority Date/Time Associated Diagnosis [...] LAB CHEMISTRY METHOD 07/20/2024 8:02 AM EST [facility] Triglycerides 43 0 - 150 mg/dL LAB CHEMISTRY METHOD 07/20/2024 8:02 AM [facility] HDL 50 >=40 mg/dL LAB CHEMISTRY METHOD 07/20/2024 8:02 AM [facility] LDL Calculated 30 0 - 100 mg/dL LAB CHEMISTRY METHOD 07/20/2024 8:02 AM [facility] VLDL Cholesterol Thomas 8.6 mg/dL LAB CHEMISTRY METHOD 07/20/2024 8:02 AM [facility] Non HDL Chol. (LDL+VLDL) 39 <145 mg/dL LAB CHEMISTRY METHOD 07/20/2024 8:02 AM [facility] Chol/HDL Ratio 1.8 0.0 - 4.4 LAB CHEMISTRY METHOD 07/20/2024 8:02 AM [facility] Blood Venous blood specimen / Unknown Venipuncture / Unknown 07/20/2024 6:12 AM EST 07/20/2024 6:30 AM EST us Flakita Dobson MEDICAL PRACTICE ADMINISTRATOR LAB BLOOD ORDERABLES Final Res ult [facility] [address] [place] [address], [place] [phone] * (ABNORMAL) Basic metabolic panel (07/20/2024 6:12 AM EST) Sodium 133 133 - 145 mmol/L LAB CHEMISTRY METHOD 07/20/2024 7:20 AM [facility] Potassium 3.8 3.5 - 5.5 mmol/L LAB CHEMISTRY METHOD 07/20/2024 7:20 AM [facility] Chloride 98 96 - 110 mmol/L LAB CHEMISTRY METHOD 07/20/2024 7:20 AM [facility] CO2 28 21 - 32 mmol/L LAB CHEMISTRY METHOD 07/20/2024 7:20 AM [facility] Anion Gap 7 3 - 11 LAB CHEMISTRY METHOD 07/20/2024 7:20 AM EST [facility] Glucose 84 70 - 100 mg/dL LAB CHEMISTRY METHOD 07/20/2024 7:20 AM [facility] BUN 17 5 - 25 mg/dL LAB CHEMISTRY METHOD 07/20/2024 7:20 AM [facility] Creatinine 0.60(L) 0.70 - 1.30 mg/dL LAB CHEMISTRY METHOD 07/20/2024 7:20 AM EST [facility] eGFR 106 >=60 mL/min/1. 73m2 LAB CHEMISTRY METHOD 07/20/2024 7:20 AM [facility] Comment:Calculation based on the Chronic Kidney Disease Epidemiology Collaboration (CKD-EPI) equation refit without adjustment for race. BUN/Creatinine Ratio 28.3 LAB CHEMISTRY METHOD 07/20/2024 7:20 AM [facility] Calcium 8.6 8.5 - 10.5 mg/dL LAB CHEMISTRY METHOD 07/20/2024 7:20 AM [facility] Blood Venous blood specimen / Unknown Venipuncture / Unknown 07/20/2024 6:12 AM EST 07/20/2024 6:30 AM EST us Flakita Dobson MEDICAL PRACTICE ADMINISTRATOR LAB BLOOD ORDERABLES Final Res ult [facility] [address] [place] [address], from Last 3 Months or Most Recently Relevant to Health Maintenance Insurance MEDICARE MEDICAID - [place] Advance Directives * Full Code - Default [...] currently active code status orders. Care Teams Legal Contracts Specialist Relationship Specialty Start Date End Date Min Mckenzie MD [address] [place] [address] PCP - General Internal Medicine 05/03/13
== END 2025-05-04 15:13 | disposition home or self-care (01) ==
LOC: HO.HPS 14:37
PROVIDERS: PCP Internal Medicine; Visit Provider Hospitalist
DX: R05.2 Subacute cough (principal); G47.33 Obstructive sleep apnea (adult) (pediatric); J98.6 Disorders of diaphragm; R06.09 Other forms of dyspnea; C09.9 Malignant neoplasm of tonsil, unspecified; R13.11 Dysphagia, oral phase
CPT/HCPCS: 99214; G2211

== ENCOUNTER 2025-05-25 10:20 | Outpatient (AMB) | payer MEDICARE, MEDICAID, SELFPAY ==
--- NOTE | 2025-05-25 10:41 | MHC.OFFVIS ---
Intake Visit Reasons: 6M PVR/UA/Labs(set) Intake Note: Reason for Visit: Labs/PVR/UA Follow up Urology Meds: Testosterone Blood Thinners: None Labs: PSA- 0.55 Total Testosterone- 473 (05/04/2025) Last Urine Culture: 11/22/2024 Imaging: None Last PVR: None PVR: 17ml Grants And Contracts Assistant Required: No Accompanied by: Self / Same As Patient Allergies Iodinated Contrast Media (IV Dye, Iodine Containing) Allergy (Intermediate, Verified 05/25/25 10:44) HIVES IV contrast Allergy (Unknown, Uncoded 05/25/25 10:44) rash HPI Comments Details: Wood is a pleasant male. He is seen for the following urologic conditions - hypogonadism - nephrolithiasis - lower urinary tract symptoms Six month follow-up labs Continue good response to AndroGel UA normal Lower urinary tract symptoms Progressive urinary frequency and urgency Tamsulosin 0.4 mg stone Hypogonadism Longstanding Prior treatment for rectal cancer that involved radiation Current therapy AndroGel 2 pumps daily Laboratories - 01/08 T 480, PSA 0.16, 08/12 T 460 P 0.2, 08/13 T494 PSA 0.34. 01/10 314 60 0.44, 08/14 615 0.5 48, 04/13 T 633 0.5, 11/12 490 1.2 39, 05/15 473 0.55 Nephrolithiasis History of stones Prior ultrasound with simple cysts Imaging - 07/13 renal ultrasound bilateral cysts, 2 mm stone left side Continue with encouragement of lemon hydration therapy Erectile dysfunction Good response to Viagra Continue periodic surveillance PFSH Medical History Dysphagia Bleeding from mouth Tonsillar cancer Neck pain Dyspnea Elevated diaphragm WILIAM (obstructive sleep apnea) Hypogonadism in male Urgency incontinence Renal stones BPH (benign prostatic hyperplasia) Hypogonadism Family History Other CVD (cardiovascular disease) Cancer Pancreatic cancer Social History Patient Tobacco Use Status: Never used Tobacco Review of Systems Const Denies chills and Denies fever(s) Card Reports no additional complaints and Denies syncope Resp Denies cough GI Denies abdominal pain and Denies heartburn Reports as per HPI and Denies change in libido Neuro Denies syncope Psych Denies change in libido Endo Denies change in libido Physical Exam Const General: cooperative, healthy appearing, comfortable and no acute distress Orientation/consciousness: patient oriented x3 HEENT Face and sinus: Yes normal facial exam Mouth: moist mucous membranes Neck Neck: Yes normal visual inspection, Yes full ROM and Yes trachea midline Chest Chest palpation & inspection: normal inspection of the chest Resp Effort & Inspection: normal respiratory effort, able to speak in complete sentences and no respiratory distress GI Inspection: Yes normal to inspection Back/Spine/Pelvis Cervical Spine: normal cervical lordosis Thoracic/Lumbar Spine: thoracic and lumbar spine normal to inspection Skin General skin exam: no rashes or lesions noted Neuro General: patient oriented x3, gait normal, tone normal and moves all extremities Extrem General: Yes normal to inspection and Yes capillary refill normal Office Procedures Post Void Residual Post Residual Void Post Void Residual (PVR): 17 [id number] Void Residual by ultrasound Results AMB Urinalysis, Automated UA Leukoctes 0 Dimple/uL Last Edit by Suzanne Becker [facility] on 05/25/25 10:56 UA Nitrite Negative Last Edit by Suzanne Becker [facility] on 05/25/25 10:56 UA Urobilinogen 0.2 mg/dL Last Edit by Suzanne Becker [facility] on 05/25/25 10:56 UA Protein 0 mg/dL Last Edit by Suzanne Becker [facility] on 05/25/25 10:56 UA pH 6.0 Last Edit by Suzanne Becker [facility] on 05/25/25 10:56 UA Blood 0 Parmjit/uL Last Edit by Suzanne Becker [facility] on 05/25/25 10:56 UA Specific [place] 1.010 Last Edit by Suzanne Becker [facility] on 05/25/25 10:56 UA Ketone Negative Last Edit by Suzanne Becker [facility] on 05/25/25 10:56 UA Bilirubin 0 mg/dL Last Edit by Suzanne Becker [facility] on 05/25/25 10:56 UA Glucose 0 mg/dL Last Edit by Suzanne Becker [facility] on 05/25/25 10:56 Results Reviewed Results Reviewed: Laboratory Last Values Urine pH (Auto) 6.0 05/25/25 10:55 Specific [place] (Auto) 1.010 05/25/25 10:55 Urine Protein (Auto) 0 mg/dL 05/25/25 10:55 Glucose (UA)(Auto) 0 mg/dL 05/25/25 10:55 Urine Ketones (Auto) Negative 05/25/25 10:55 Urine Blood (Auto) 0 Parmjit/uL 05/25/25 10:55 Urine Nitrite (Auto) Negative 05/25/25 10:55 Urine Bilirubin (Auto) 0 mg/dL 05/25/25 10:55 Urine Urobilinogen (Auto) 0.2 mg/dL 05/25/25 10:55 Leukocyte Esterase (Auto) 0 Dimple/uL 05/25/25 10:55 Assessment & Plan Assessment & Plan (1) Hypogonadism in male: Code(s): E29.1 - Testicular hypofunction Category: Medical (2) BPH (benign prostatic hyperplasia): Code(s): N40.0 - Benign prostatic hyperplasia without lower urinary tract symptoms Category: Medical Plan Continue medications Six-month follow-up Orders: Orders AMB Post Void Residual by ultrasound Today N40.0 - Benign prostatic hyperplasia without lower urinary tract symptoms Testosterone, Total 5 Months E29.1 - Testicular hypofunction Prostate Specific Antigen 5 Months E29.1 - Testicular hypofunction Hematocrit 5 Months E29.1 - Testicular hypofunction AMB Urinalysis Automated Today Z13.9 - Encounter for screening, unspecified Medications: Refilled testosterone apply 2 pumps over max area of EACH upper arm and shoulder 2 pumps topical DAILY 75 grams 5RF 28 days E29.1 - Testicular hypofunction, R79.89 - Other specified abnormal findings of blood chemistry Patient Instructions: This note is constructed using voice recognition software. While every effort has been made to ensure accuracy final cigar and box examiner errors may have been included. Imaging studies, laboratory and physical exam results were discussed and reviewed in detail. No major barriers to patient understanding were identified. An opportunity to ask questions regarding the treatment plan was provided. All questions were answered. The patient expressed understanding and agreement with the above treatment plan. The patient is aware they should contact our office by phone for worsening of their current condition or the appearance of new urologic symptoms. Compliance is encouraged with any medications and followup testing that is ordered. It is a privilege to participate in the urologic care of your patient. If you have any questions or concerns regarding treatment for the above conditions, or other urologic issues, please do not hesitate to contact me. The office telephone contact is [phone]. Sincerely, Dr Norman Winter MD, [facility] - Urology Compassionate Specialist Care for the Genitourinary System Coding Level of Care Code Est Pt Level 3 (40392) Complex visit Add On G2211 Diagnoses Hypogonadism in male E29.1 BPH (benign prostatic hyperplasia) N40.0 CPT Codes Post Residual Void - PVR CPT Code: [id number] Void Residual by ultrasound ([id number])
== END 2025-05-25 11:09 | disposition home or self-care (01) ==
LOC: HO.HUSH 10:20
PROVIDERS: PCP Internal Medicine; Visit Provider Urology
DX: E29.1 Testicular hypofunction (principal); N40.0 Benign prostatic hyperplasia without lower urinary tract symptoms; Z13.9 Encounter for screening, unspecified
CPT/HCPCS: 99213; G2211

== ENCOUNTER → 2025-05-25 10:20 | Outpatient (BNVA) | payer MEDICARE, MEDICAID, SELFPAY | PROVIDERS: PCP Internal Medicine; Visit Provider Urology | DX: E29.1 Testicular hypofunction (principal); N40.0 Benign prostatic hyperplasia without lower urinary tract symptoms | CPT/HCPCS: 51798; 81003; 99212 ==